=== PATIENT | male | born 1965 | race Caucasian/White ===

== ENCOUNTER 2023-04-22 15:57 | Outpatient (OUT) | payer OTHER, SELFPAY ==
--- NOTE | 2023-04-22 16:30 | XR_ITS ---
The [address] [address] Patient Name: ENRRIQUE MADERA MRN: [id number] date: 1965 Sex: M Assigned Patient Location: [facility] Current Patient Location: Accession/Order Number: [id number] Exam Date: 04/22/2023 16:25 Report Date: 04/23/2023 09:21 At the request of: DAMIAN OLIVARES Procedure: XR lumbar spine 2-3V EXAMINATION: XR lumbar spine 2-3V HISTORY: RADICULOPATHY LUMBAR REGION M54.16 COMPARISON: No relevant comparison available. FINDINGS: BONES: Normal alignment with no spondylolisthesis. Mild to moderate degenerative spondylosis and facet osteoarthropathy. Anterior wedging T12-L1 and L2, age indeterminate DISC SPACES: Disc space narrowing, severe at L5-S1 with endplate sclerosis PARASPINOUS: Negative. No paraspinous abnormality is seen. OTHER: Negative. XR/XR lumbar spine 2-3V IMPRESSION: Anterior wedging of multiple vertebral bodies, age indeterminate Moderate degenerative change Electronically authenticated by: ELIAS HOPPER Date: 04/23/2023 09:21
== END 2023-04-22 15:58 | disposition home or self-care (01) ==
LOC: RAD 16:10
PROVIDERS: PCP Family Medicine; Visit Provider Family Medicine
DX: M54.16 Radiculopathy, lumbar region (principal); M51.9 Unspecified thoracic, thoracolumbar and lumbosacral intervertebral disc disorder
CPT/HCPCS: 72100

== ENCOUNTER 2023-05-05 14:54 | Outpatient (OUT) | payer OTHER, SELFPAY ==
--- NOTE | 2023-05-05 14:57 | MR_ITS ---
[address] [address] Patient Name: ENRRIQUE MADERA MRN: [id number] date: 1965 Sex: M Assigned Patient Location: MRI Current Patient Location: MRI Accession/Order Number: [id number] Exam Date: 05/05/2023 15:00 Report Date: 05/06/2023 16:23 At the request of: DAMIAN OLIVARES Procedure: MR lumbar spine wo con EXAM: MR lumbar spine wo con HISTORY: Collapsed Vertebra M48.50XA COMPARISON: Lumbar radiographs 04/22/2023 TECHNIQUE: Multiplanar, multisequence MR imaging of the lumbar spine was performed without intravenous contrast. FINDINGS: There is a chronic compression fracture of T11 with depression of the superior endplate and 30% loss of height. There is a chronic compression fracture of T12 with depression of the superior endplate and 90% loss of height. Bone marrow signal is within normal limits with no acute fracture or dislocation. A few small scattered Schmorl's nodes and hemangiomas are noted throughout the lumbar spine. There is 6 mm of retrolisthesis at L5/S1. Conus terminates at the lower T12 level and is unremarkable in contour and signal. No paraspinal mass or fluid collection. Visualized abdominal aorta is unremarkable in contour. The upper sacroiliac joint spaces are unremarkable. T11/T12: Disc space narrowing, disc bulging, and facet arthropathy causing moderate bilateral neural foraminal stenosis. T12/L1: Disc space narrowing. L1/L2: Negative. L2/L3: Mild disc space narrowing and disc bulging. L3/L4: Disc space narrowing, disc bulging, short pedicles, and thickening of ligamentum flavum causing moderate to severe central canal stenosis, severe left neural foraminal stenosis, and mild right neural foraminal stenosis. The thecal sac measures 5 mm. L4/L5: Disc space narrowing, disc bulging, small left paracentral disc extrusion, and facet arthropathy causing moderate central canal stenosis and effacement of the left lateral recess and severe left neural foraminal stenosis with mild right neural foraminal stenosis. The thecal sac measures 6 mm. L5/S1: Disc space narrowing with 6 cm of retrolisthesis and bilateral foraminal disc/osteophyte complexes causing moderate to severe bilateral neural foraminal stenosis. MR/MR lumbar spine wo con IMPRESSION: 1. Moderate to severe central canal stenosis at L3/L4 due to short pedicles, disc bulging, facet arthropathy, and thickening of ligamentum flavum. Moderate central canal stenosis at L4/L5 due to a left paracentral disc extrusion. 2. Severe neural foraminal stenosis on the left at L3/L4 and L4/L5. Moderate to severe neural foraminal stenosis on the left at L5/S1 and T11/T12. 3. Moderate to severe neural foraminal stenosis on the right at L5/S1. Moderate neural foraminal stenosis on the right at T11/T12. 4. Chronic compression fractures of T11 and T12. No acute osseous abnormality. 5. Grade 1 retrolisthesis at L5/S1. Electronically authenticated by: ELIAS STALEY Date: 05/06/2023 16:23
== END 2023-05-05 14:55 | disposition home or self-care (01) ==
LOC: MRI 14:54
PROVIDERS: PCP Family Medicine; Visit Provider Family Medicine
DX: M51.9 Unspecified thoracic, thoracolumbar and lumbosacral intervertebral disc disorder (principal); M48.50XA Collapsed vertebra, not elsewhere classified, site unspecified, initial encounter for fracture; M48.061 Spinal stenosis, lumbar region without neurogenic claudication
CPT/HCPCS: 72148

== ENCOUNTER 2024-02-06 13:33 | Outpatient (OUT) | payer OTHER, SELFPAY ==
--- NOTE | 2024-02-06 | MR_ITS ---
[address] [address] Patient Name: ENRRIQUE MADERA MRN: [id number] date: 1965 Sex: M Assigned Patient Location: MRI Current Patient Location: Accession/Order Number: [id number] Exam Date: 02/06/2024 14:05 Report Date: 02/07/2024 07:42 At the request of: DAMIAN OLIVARES Procedure: MR lumbar spine wo/w con EXAMINATION: MR lumbar spine wo/w con HISTORY: LUMBOSACRAL INTERVERTEBRAL DISC DISORDER M51.9 COMPARISON: 05/05/2023 TECHNIQUE: Axial T1 and T2; Sagittal T1, T2, and STIR sequences. Images were performed before and after the administration of ml intravenous Dotarem contrast. FINDINGS: For the purposes of numbering, sagittal T2 image # 8 extends from the T11 vertebral body superiorly to the S4 level inferiorly. PARASPINAL AREA: Normal with no visible mass. BONES: 5 mm retrolisthesis of L5 on S1. 50% anterior wedge compression fracture of T12, chronic. Moderate diffuse degenerative spondylosis . Interval posterior decompression L3 and L4. Left hemilaminectomy L5 CORD/CAUDA EQUINA: Normal caliber, contour, and signal intensity. No abnormal postcontrast enhancement DISC LEVELS: 12-L1: Early degenerative disc disease is present without focal protrusion or neural impingement. L1-L2: No significant disc/facet abnormality, spinal stenosis, or foraminal stenosis. L2-L3: Disc space narrowing and desiccation. Posterior broad-based disc protrusion. No central or foraminal stenosis L3-L4: Disc desiccation and narrowing. Broad-based posterior disc herniation the protrusion type extending up to 4 mm. Ligamentum flavum hypertrophy and facet osteoarthropathy. Moderate trefoil narrowing of the central canal axial image 20. Moderate bilateral foraminal stenosis L4-L5: Disc space narrowing and disc desiccation. Left paracentral and lateral disc herniation of the protrusion type measuring up to 7.3 mm. Significant left central canal and lateral recess stenosis. Bilateral facet osteoarthropathy. Minimal right and severe left foraminal stenosis L5-S1: Disc collapse with endplate sclerosis. Grade 1, 5 mm retrolisthesis of L5 on S1. Mild to moderate diffuse disc/osteophyte complex. MR/MR lumbar spine wo/w con IMPRESSION: Posterior decompression L3-L5 Progression of degenerative changes with central and foraminal stenosis at multiple levels detailed above Electronically authenticated by: ELIAS HOPPER Date: 02/07/2024 07:42
== END 2024-02-06 13:34 | disposition home or self-care (01) ==
LOC: MRI 13:36
PROVIDERS: PCP Family Medicine; Visit Provider Family Medicine
DX: M51.9 Unspecified thoracic, thoracolumbar and lumbosacral intervertebral disc disorder (principal); M51.36 Other intervertebral disc degeneration, lumbar region
CPT/HCPCS: 72158; A9575

== ENCOUNTER 2024-02-15 11:03 | Outpatient (OUT) | payer OTHER, SELFPAY ==
--- NOTE | 2024-02-15 11:07 | XR_ITS ---
The [address] [address] Patient Name: ENRRIQUE MADERA MRN: [id number] date: 1965 Sex: M Assigned Patient Location: [facility] Current Patient Location: Accession/Order Number: [id number] Exam Date: 02/15/2024 11:08 Report Date: 02/16/2024 06:16 At the request of: DAMIAN OLIVARES Procedure: XR shoulder RT min 2V PROCEDURE: XR shoulder RT min 2V HISTORY: Shoulder Impingement M25.819 COMPARISON: None. FINDINGS: BONES:Narrowing of the acromioclavicular joint with small degenerative osteophytes. Unremarkable humeral head and glenohumeral joint. SOFT TISSUES:No visible soft tissue swelling. EFFUSION:None visible. OTHER: Negative. XR/XR shoulder RT min 2V IMPRESSION: 1. Mild-moderate degenerative changes of the acromioclavicular joint. Electronically authenticated by: ABHI MATA Date: 02/16/2024 06:16
--- OUTSIDE RECORDS SUMMARY | 2024-02-15 11:08 | XMS_ITS | CCD ---
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 professional for tips on how to relieve symptoms and feel better. Usual Cause Illness Viruses Bacteria Antibiotic Needed Cold/Runny Nose NO Bronchitis/Chest Cold (in otherwise healthy children and adults) NO Whooping Cough Yes Flu NO Strep Throat Yes Sore Throat (except strep) NO Fluid in the middle ear (otitis media with effusion) NO Urinary Tract Infection Yes Antibiotics Aren?t Always the Answer www.cdc.gov/getsmart GET SMART Know When Antibiotics Work [place] Department of Health and Human Services Centers for Disease Control and Prevention April 2014 [facility] MAGR Intraoperative Recordon 11-04-2023 MAGR Intraoperative Record MAGR Intra-Op Record Summary Primary Physician: JACINTO OLMOS MD Finalized Date/Time: 11/04/23 11:56:54 Pt. Name: ENRRIQUE MADERA/Sex: 1965 MALE Med Rec #: [id number] Physician: JACINTO OLMOS MD Financial #: [id number] Pt. Type: D Room/Bed: / Admit/Disch: 11/04/23 10:51:46 - Institution: Case Times MAGR Entry 1 Patient In Room Time 11/04/23 11:50:00 Out Room Time 11/04/23 11:57:00 Anesthesia Start Time 11/04/23 11:52:00 Stop Time 11/04/23 11:56:00 Surgery Start Time 11/04/23 11:52:00 Stop Time 11/04/23 11:56:00 Last Modified By: Shikha Guzman RN 11/04/23 11:56:47 Case Attendance MAGR Entry 1 Entry 2 Entry 3 Case Attendee Catina Salas RN, Sarah E RT (R) Melissa Augustin RT CT ARRT (R) ARRT Role Performed Injection Mold Tooling Technician Soil Conservation Teacher Soil Conservation Teacher Time In 11/04/23 11:50:00 11/04/23 11:50:00 11/04/23 11:50:00 Time Out 11/04/23 11:57:00 11/04/23 11:57:00 11/04/23 11:57:00 Procedure Medial Branch Medial Branch Medial Branch Block(Bilateral) Block(Bilateral) Block(Bilateral) Last Modified By: Shikha Guzman RN, Barbara RN Long, Barbara RN 11/04/23 11:56:48 11/04/23 11:56:48 11/04/23 11:56:48 Entry 4 Entry 5 Entry 6 Case Attendee Rashmi Giang CST, THOMAS F MD Long, Barbara RN Role Performed Scrub Personnel Surgeon - Primary Injection Mold Tooling Technician Time In 11/04/23 11:50:00 11/04/23 11:50:00 11/04/23 11:50:00 Time Out 11/04/23 11:57:00 11/04/23 11:57:00 11/04/23 11:57:00 Procedure Medial Branch Medial Branch Medial Branch Block(Bilateral) Block(Bilateral) Block(Bilateral) Last Modified By: Shikha Guzman RN, Barbara RN Long, Barbara RN 11/04/23 11:56:48 11/04/23 11:56:48 11/04/23 11:56:48 Surgical Procedures MAGR Pre-Care Text: A.20 Verifies operative procedure, surgical site, and laterality Im.150 Develops individualized plan of care Entry 1 Procedure Medial Branch Block Primary Procedure Yes Primary Surgeon JACINTO OLMOS MD Modifiers Bilateral Surgeon Comment BILATERAL L3, L4, L5 Start 11/04/23 11:52:00 MEDIAL BRANCH BLOCK Stop 11/04/23 11:56:00 Anesthesia Type Local Surgical Service Pain Management Wound Class Clean Technique Details Closure Technique N/A Entire procedure No was performed via laparoscope or robotic assistance Last Modified By: Shikha Guzman RN 11/04/23 11:56:49 Post-Care Text: O.730 The patient's care is consistent with the individualized perioperative plan of care General Case Data MAGR Pre-Care Text: A.350.1 Classifies surgical wound Entry 1 Case Information OR MAGR OR 02 Case Level None Wound Class Clean Specialty Pain Management ASA Class N/A Diagnosis Preop Diagnosis LUMBOSACRAL SPONDYLOSIS Postop Same As Preop Yes Postop Diagnosis LUMBOSACRAL SPONDYLOSIS Blunt or No Is the procedure No penetrating injury considered occured prior to Emergent/Urgent? the start of the procedure: Last Modified By: Shikha Guzman RN 11/04/23 11:48:31 Post-Care Text: O.760 Patient receives consistent and comparable care regardless of the setting Time Out MAGR Entry 1 Procedure(s) Medial Branch Block(Bilateral) Time Out Checklist Verifications Team Introductions Yes Confirmed Identity, Yes Completed Procedure, Incision Site, and Consent(s) Presence of Yes Site Verification, Yes Necessary Site Marking, Site Procedural Marking Equipment, Devices, Alternative, and/or and Implants Site Marking Verified Exception in Accordance with Facility Policy Anesthesia Review Antibiotic Received n/a All Anesthesia Case does not involve Within an Concerns Addressed an anesthesia Appropriate Time professional Interval Prior to Surgical Incision Surgeon Review Anticipated Blood Yes Expected Case Yes Loss Risk Addressed Duration Addressed Critical and Yes Non-Routine Steps to be Performed Addressed Nurse Review Equipment Yes Fire Risk Yes Checks/Concerns Assessment Addressed Completed and Interventions Performed Diagnostic and Yes Sterilization Yes Radiological Test Concerns Addressed Results Displayed are Appropriate and Labeled Other Concerns Yes Addressed Time Out Catina Salas RN, Time Out Time 11/04/23 11:51:00 Participants Priscilla Moreno RT (R) CT ARRTDemetria Sara L RT (R) ARRTPadmaja Regina CSFA CST, JACINTO OLMOS MD, Shikha Guzman RN Last Modified By: Shikha Guzman RN 11/04/23 11:50:15 Patient Positioning MAGR Pre-Care Text: A.280 Identifies baseline musculoskeletal status Im.40 Positions the patient Im.80 Applies safety devices Entry 1 Procedure Medial Branch Body Position Prone Block(Bilateral) Left Arm Position Resting at Side Right Arm Position Resting at Side Left Leg Position Extended Right Leg Position Extended Feet Uncrossed? Yes Press Points Checked Yes Positioning Device Pillow, Safety Strap Outcome Met (O.80) Yes Last Modified By: Shikha Guzman (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 [facility] 11-04-[facility]23 MAGR Preoperative Record MAGR Pre-Op Record Summary Primary Physician: JACINTO OLMOS MD Finalized Date/Time: 11/04/23 11:47:01 Pt. Name: ENRRIQUE MADERA /Sex: 1965 MALE Med Rec #: [id number] Physician: JACINTO OLMOS MD Financial #: [id number] Pt. Type: D Room/Bed: / Admit/Disch: 11/04/23 10:51:46 - Institution: Pre-Op Case Times MAGR Pre-Care Text: Patient will be optimally prepared for surgery. Patient is free from s/s of injury. Provide information to patient/family related to plan of care. Verify patient allergies. Confirm identity and verify consent before the operative or invasive procedure. Entry 1 Patient Arrival Time 11/04/23 11:00:00 Preop Departure 11/04/23 11:42:00 Last Modified By: Shikha Guzman RN 11/04/23 11:46:56 Post-Care Text: Patient is prepared mentally and physically and is ready for surgery. The patient remains free from s/s of injury. Patient/family express understanding of plan of care and participate in decisions affecting his or her perioperrative plan of care. Allergies documented appropriately. Patient identifiers and consent correct. General Comments: Pt to PSW. Pt denies any recent cold/flu/covid symptoms, SOB, diabetes, CP, or pacemaker/defibrillator. Pt has sleep apnea and uses CPAP at night. Finalized By: Shikha Guzman RN Document Signatures Signed By: Shikha Guzman RN 11/04/23 11:47 [facility] Patient Handouton 11-04-2023 Patient Handout [facility] Progress Note - Provideron 0 11-04-2023 Progress Note - Provider [id number] [facility] Coding Summaryon 11-03-2023 Coding Summary HTMLBase 64 FgzcqixsJGw5vTx+PGhlYWQ+PE1F OODpP24uvMDpgY2lK6QZDMeLSeob WYWRYFmRNrWthnEeXO4qwEKvHSKp IC8+BA6yUTZiAeddjEJjs1D0jIJ7 T46pws8rDEymzOR2RUNeCaPzpfru e5sxnLg7YExqYgmrGyOa YNJzdT56WBV5vG67Ci28jZWeiBAi q7skxMx3DjVvLYZoGBL3dQdyNSip q5HyCCHrX02wqRYdt9E2 XTAgsBgskFZuIhBdnCO6nS3jFVpe vcaqr4bgpsxhXhp6yk89rFTwn3C9 vSS0R2HitmK9ASZgeOKp MhcnoSUXiE0fzkdvu7xybdqkAmCe IMRzBDj9IFq7IJGwjKskEbAfRV49 PZF8DGKzmbXuI9SpSXDn cZedVkB8b6N6Hu3AU9YJKcuvI8PB TUFSWTwvdGQ+DO30pf98M1ZeEttg Ozm8DCNaXJI1qJE3aB5g ZOFiQZthe2U3iSM3Z0GmpyMlko2z g3guTVHsYUkyM32iaRVlz0A5CAYb bVL3MNRxwXurFkKolJ88 Oyc+EJKtsGbdh1GqBchwk3vyr4el zCx8KdaaYADecqXhcUobVFC8z5Fk Lg1tMDQfsZY7wLK4xK9p UrObZvY3JOzhZ459YqVxfCKgWbzf M05bK5NoxXM+OFBwWku2OUJuqWyi GI5pT5LmCPVtvfgeoTCx hSquBT9lHZFpayqzKNCqaK2aYPJd C6f5NkWwArC8ZQglM0DxTDZudqot Yi44sC3tTyZoGhT7IIzo Q8KljuO5JMSptXUnQKdcXEZ9D65x s6J2TGGxGVDoRII4xHN4nM1waKiz bjogbGVmdDsgdmVydGlj CAzhPFxwI382POHnuDcwJbScRXep ZyBEYXRlOiAgMDMvMjEvMjAyNDwv dGQ+LLGjRBH5zUqvDCSx iTHtJLukGy9htHukeYivFC6qFQAh khyoSPSpyO6nQZVvpRMjpScxIR7s FNHuogsnz443EnHlSFZ8 STYcfTNcB7TsjV8sKiXvKYMmWTFc O9XerEHvEIzeV708CXscKiQ5NRTw otIyG3DdMXUfoCbtVaO4 v1Y1Ct9Kt7UkivezE3RcsJBhVaOl BkntVRp5Z9TtJbfemUH+BF05XSOc ZO99EMl8YTZ5mIuxXUam SSFdU7SwpA9mDsWxVODbMRCbXbi+ PHRhYmxlIHdpZHRoPScxMDAlJyBz yNceDH8rTi1cIXJgACQw fLfojAIjUgIfk6bqASTkBZagAV8i kOvdG4YemOS9NZIiw6p2Sd85E93k Y7LkjZU+LZEbpQL3qDG4 aX5jCjGdVuH5EDsiD696LwApdFGg Nvlvi5hiw2wbcDu0LsG1JTKcxuTl uDlyRAT1d1LbCx19G09q PDkzHBYyNQWqRWRtEQXovHvpoi9u pH2jVk4+DIBafJW0cZE0bC2rXiLh DoX9SYqvL904ZaQouVCb Kvldb4vgv3heqLk3AaTdCXUnuvYy sNydDFT5b5MwMw67W7HqeEihh5Xk Pfh0wx02qPYku3H1pZS3 K1DqUUGxcdtorVEefSxpGY8hOYPm eqqwMCUkbI2dXVVxA2e8WbHkHbF6 YHocS7BqpqG0KYYorHMx OXNtqMTMfR5bfhnhj3xxnfghPsBn AAQgGTc9KIj0FYDjaCchCjQvASE9 DjK7MMQ4rEEfuQ1cwCmb kpsjbN6xKxd+ZTW9rJXpaLSDAD2m OjwvdGQ+GGCqJLB8eYhaOBzgRCGb hR8uDKWtX4g2JkUrFyX6 QLpoH8LoaaO6JDNkzVOfLQNtlTNR pD9ybhpai0zcviahBdNpYBHbWYl7 VJx2QEEswNuoMwFdGQC8 IzO3QLW5sEExcA0gfBinslkopE0a Oyc+UnuhfSrmKEU1MYe8Y3GtBsk2 XCUogCcyDI6guZZtGRnh Hb3sbMczgQpzVF0sIRClhyywt085 JqBpm3cgSKQjyTMeUGtlGAV4X18f y2S9ZHZdVMJjLEP5bJA6 oS4xvOlgmanegBKjmRtnqvOezZed OFvkMUbeG109OAAsgFinGqIoDKv4 O9JoJtv7GOXetDkbEI2j cZBrBIkjOv7inAiykPuoOK0mSQNw asdag245EmIdb4uiLXJajLZeAYkj YSY6X09ul3K2DIEaFMXv FKW8eLL4oU2jsFjqqlrlxXOmgUwp fyZmlPgdIFyoPTxuB119FBKdtRbg BbCqhQz3D5FuUar7IBZu iQtbXY4bcXGxXWxoFv1myGoqmKnb YT4mUMKiwqesz449LuVwj4dqSMFj rWSiOBjtCSR3J33bo1H3 TDOeGYAtCPD9cQV1hN9njTqbeqfo rIOmqRxqaoSzrIggSWjnDKsyV109 IHRvcDsnPlBhdGllbnQg WKqjDCs6D2VkDjparZB+JJ09AASn GS41fAJbaQYxx4gthEh0QoPePLQf TVW5iEykNFtzr8QsRRNx S17hhQQdb0V1MKMgzYlpaHLpOqKf tGV4qM5vHDmwkicrr1tqgqqqZbzk f5puir41jU72R68wYUur IWAaEUNgRFRpCWPoaSecwt0zkF6t Ii8+XSIlmVP5dBE7xE6zNTRyVcZ7 YBjgH404CsOkuHGsAkdb n3hxt6keqMs8WlJ3VCDvxaMngSxu OVQ6c6XdGy23X53bUTvgOBTzPGBr QZKiZUOzhQihyx8faV3k Ii8+EBKwuPU7oZF3wZ4aBcOaAaM2 XKezN035DzPvhDYnQprfE05cW7Ff dXA+IRZhRwa0JKOwmPbs UF6bzBEzTIlpGw0mCJD2DnEqAsBf UIlnU6CyWEKxnkbhgfbjhMV0KKQv USYkxH08Ek2uuIjwJNQt cJWKdG1ahlspp5yhzfjaMnArOLRt DRa5SFs3QTKoyFriSsDjLBN7BnP6 JUL0wPXtuD0vnHgkafcx bQ1yF9NkSAWgorhlIp63iO3eVoHh RtG6JFzoTud+Q8REABKWYVKVXK5Z SmNYSP30KE49nHQij7Y2 jTP4X0IhKLWvrouejdeflRA5WTRi WRRxoJ75pCXwEBcoEa5ev5Q7q822 STLoYIEjnC40Eg2lxTcg WQNpqHPRlB0tsfufz3jdcqktSrEu QQFlVBr9CZo5HPGdfQiiHnQgWAJ7 JwR7CSH8hNXzyH9gxKyw nmhrrB6dHji+EQYdHPEeGLi3Hoqx dGQ+YRCeDZO6iKgvHJidRDHekH6m IZYmP4l6WqHwDnE7NRle S2ScMVZttcsmDd15tF5rYpGcIcU9 BWetE2LttuN8KDUbvGMvDGxyJRF9 J15dd9K5LXQgETRtKZK6 yRP4dZ3rzLqezwrklNTlcPoxpaFt oOprQUtvSYwdZ273JFSkhOqcIbQ5 KGquIEKhCT34CY99cBPt e3H0uBN7F3OzSMTbubjgasgqhIX1 XLRjYANogX14rXScDYxgUq8sz2N2 i790OQRkPBLicP68Xw4n jOpwQLQtkBUIaL2beejmy2wryzxw XaYdMECxSKy7LIv4TGImsYasKbUs VDK5CrE2QQV8pUZcoE7l dVkgstujhP6zXdl+TUFMRTwvdGQ+ QRKpMRG0bDatYLkmETYekB1gEDGd K1b3OiOuTlJ8AMmwO1Na CXFtliqoQu90kO9uLxSmIgQ7DJbm L8FqyyJ2RPIhbLTzJLwaSIQ4N07z c7W4ALTfGOLpWBN1sYS2 vS4wjFaqpzempEIbtQfelrKzaUpj HCmjEEivC219XADejCccIj7UUU01 BQ48I8ZdVarfbXWrsFV+ PHRhYmxlIHdpZHRoPScxMDAlJyBz xBksQQ1tVk0tAEUvVENeaMvqpWWj LbNda4qqSJBoAGygBO7c hTvpF2ItgNX6THWsg0i4Ov41U76f C1GgaQP+ZOIveOO1lVG2mD5xByQb HvX8BWhnL340CxKabVDc Wsfch3prn2nsiOq5KqGxGVZenbTw kFfjTUK4d8PtXg35S61lDYvmNNJp AWLuOSEqSFAxtYohxh5g rR1nBs2+VPMgnIF6xJL4kP1jPmSk NfB5FOpbK206NkKudPQlWumkJ71t R2HlrDG+IOFoOzm1ERMm fJvaJP0emCZjUHmwJa5zWDY2ReXx BbSaVEpjT8JuSEGucowaushewTW7 VBUdMDVmuC97Vu6rsSem Wt3hLKZgWNV6ATWidOQlU3GmcC4o HaYfCDGuFVUrH9TcbZUnLIkoN171 XIkuGnB5GOUftlPtB4Uq TPUktEvnWlF4x5Y1Jp9VsZtmdZPa GF5dDkTsRQo2Z8GwXmo7AZQaePas YG2abDQzEQzoNl2tiTag sJwpKN2cTOHjnzhqc076DqBgl6tp USHugBWaHKgqWZL3J75xg9X7ITXw AOTiTOC4jSR8yT2vfAiz bjogbGVmdDsgdmVydGljYWwtYWxp S480NDEgwJywNeIKXyf8X6BdKqs6 DLEmwBweZE9juPDrIUxs Lk8ipOizpBnqVX8tICDsvawfu736 ZqMrp7wcQEXmgZOpHKoeIZH9K52u n3S4MUQiOHNcILG1qEK4 qB9iuZxcyusbaAQnxIaevuQkxXah MAzsWLwxF594BXSktLziYu5ITcq3 I2HtFuh7IQTbhJtfAS7a fKDnQGlaYu3xwJucnUaaRL0bWDNb oyntu973JyQco5awXXUeyZLkAAzy GGX4P29kz2S2FEIrIOVg DOX1iKO2qR2wtRxcitqgnMPbbGlr chPbgJepKNxtAXhdR569CNHepCxm PlBheWVyOjwvdGQ+PC90 gx03O0OvSasxTvt2YYYiAGM3uQP7 qX7wBQKmOUapp4B3sQG9L5AxfuBa re1qa5wdTQYbSTfgX44j bGF (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 [facility] Coding Summaryon 10-25-2023 Coding Summary HTMLBase 64 VockhqlaZIe4bCp+PGhlYWQ+PE1F FKCkI36zhCPhhD8iW1PNKDcBTdgm JCYVFHiJBdEhopMhLP3dzWDwIPIu IC8+KX7vOODlMquubUThs5H9lQB3 C60wfr7sJVriyRY8IYAuNpZkmmaf i1nzjIr4VIhjHaulXzKx IDJznL99HSM2hP36Xj72fCNbiOFs a4inbWv6YwBsKRUtPYQ9cYteNDhw d2UzSIQdX32bqAChs0E3 QXIyyQeazMPmBoZypTQ8iI8eAMps ksnsk7oxgiipUca4ti36vGCsc4T7 bMB8L7FvedE4EPWqyJSi SguofUWEwZ3ivocro9rugyyqFhAa FQIpGMl3VDv5HFJlzPewLhWtOI73 KYC2VPVtdoDdY5WfAUWj hWbzQfP7t8C7Fb4UF1MKAljhZ2XG TUFSWTwvdGQ+QF74xi29O0KlBsbt Wde8ESElYMF3nBU4yB3z GINxFOkop2A1lUL0U4MxnzGfho0i a6jdSWRuHLoiV31smUCyr1W2MGOg uEP7FYOqzJojLcVubY83 Oyc+HOYtbWeyx5PrTfptd9mmh4fw nAo1BzhjZVZwaaByyXqgIVE6f8Ci Wf9cSWLrtLM3bPJ1wV3c QkYsVbS8DQroF326OxLixIOcCyxg N08wM2BnxUG+JYJqBoi3TBZjwGva KD1vP7WlIOZwgwplyNUt mXaoZZ4tGVNjwmdmFUXksV5nBBVm D7l2DaMdUqS7LZjwL6RpWPDlioub Fd66fI4jHtMvRdC7NYon H9IuwrT8HTPxpFHnXCffVMH0Y75w r4E7LYZiYIQbMBR2eEA9rJ3qcFsk bjogbGVmdDsgdmVydGlj PKtbVPjgK100DKBefWtlUaKpXJhs ZyBEYXRlOiAgMDMvMTIvMjAyNDwv dGQ+XRNkFLH1eRcnHANd oVWjINedNa9apHvexGgyKF9wXXDe rvgbAFMoiI3rHMRdgUPxvWjzPT3j FVPjwseus463NhWqNLK1 YYVxfCYrU0DjvN9dJnDmMCOyKTOn B2FlvTDvYZioV204CUzvTxS0XSYm cxMbI5SxPOJhtUsoIuC9 y7L6Mu7Lr4PdafzyY2RkzSMlKyWh CfvlTJs9G2AhAedjeBU+OU34GZVx HC05GOa9OBI5hAjaHCak IVLqK3IorJ7cPqMsGFWqTLWeCih+ PHRhYmxlIHdpZHRoPScxMDAlJyBz oZxfFS9yHr6nLEGnNGMs zRzfbXXnBfOss3tsHWJnRDluSN7v tTxfP1EbgYU8HBCsh6g9Nn82X54z T1MybEY+FIVdnOR5vYN6 oQ7cJsKaMuF0XHuuL036AtFuiYUq Mhaft0oah8pasRt9NqT8DVWszuIe oOxmNHS2k9HzWk31C99s ZDeyOVGyBOApIGYiXCVijMxbof2a mC1fMs9+PPJraVM2mVV7jV3hQzBf NiB7VVgyA481NyRxjVLf Jksgb4tqp8poqPt9UlGhVCEgpyCs hQjiQPZ0p3ToBz66B4ZtoYyxo2Ao Hcm6mp11hLFsq1M8yFD8 F9UqLPBmzbrgrUSxxIduDW7uAQZw jhkkBRWwtV2bFSHbR4h9ReCtWzU8 NOahQ9AuwcF8PPKjnALf CIJoxQIBrL3adfkak0phkcqxMzZv BODoRMc7REd3BMOwwUqdXvGcNKO6 McM6DUB4vINjlJ0utOin enspcH8sZsh+RWF0qIZjyKMFAB8x OjwvdGQ+RNRoDYO9kYxfSJecNMJo rP6zALAuE1g0GeJqXmN5 WXkcQ1DsdeI3KPGghELbNNSrwFIN cJ4pyroja8jftgpaTbNbMYAbPVk9 KWt0YZXjxNrwIaCtFEI6 VyW5UCP1rXZvkL6zzBikekdcpT2z Oyc+JbperLzrVDW7DMk4Q4QiQdu8 QKLiwMmkZZ3gsYWmEHaq Uj7tvWpoyXtuID8gCHHjeydub170 YgHub8lrGTYsvJMwRCprIOI3Y53t t3R2AKCzLWYlPUY4qKL6 bT3inLhxxurcsEIhmOnxmpDkgObv MKkeHUlpV908EJElwPajQoBbVBy1 T9OxQxr3XPVizItqEJ0o gHBfHDqtQt5ygKaktHtiDO3bEITu njbgh428KvSvk8jzONDnbYMhWHmq QBA9K37yw2L0XCRlJGAn PVB4aEZ8iO4syZoyqnlzqPAhxEho hdKdnCzhYAciBIrmG911WEEvfXoz XpWlxWd1T3CjJfb2SQAq nNqfAM1snYTwKJgnLr7ekXjelSyq AW3eFWJszodoc405OcWak8qlKZRc vZVpOHxtADT2B41gs5D7 PGKuXNZcUJQ5lHL4fX9olBubhpxl vWNyiXkzanWruFkgTVejJVnmY635 IHRvcDsnPlBhdGllbnQg CLxpOGu8R5VgTgmhsAL+DQ45CVWd CE31rGOymORfg2hiuXp3FqEcCQLh OIK3vMoaFMcqc1NrCMPh H31jcYMxg1Y3TEDyqTegjMXfUyHp dHA0wN9yWJhwitnuf6bgrjmhBbsy j1wmlx01jE14X68eCYrg HSDhCNAuYIMwDEMdwGuarn4biB1f Ii8+NOIdqIR5gKP5kG6sQNCkIfI5 DGpcR367ReYozXNnNxvp f3kko7kovXj5ByS0ZNGfecHnbCdq TXT8o7ZnMf37P62sVYuwVJAaLFSh DJUkGOCtsNynlt0caD6z Ii8+FXYbwBT9eFH6tG1vXjZqJuE8 UJawD645JkHbqGMeSpnlI54kE8Lv dXA+CGNeUfm2PCLxbYpn XE4neKGnRExhRy3uTSR2HqByGgXz GWruC8GjXDDuezlhgkogkFH2GIQh MMVciN52Pr7yyGjfNGEs qZWAnW1vgrigm5bfrwjwUiUfEBZs MRk6DDw5PUGcxXzrTdNwNRL0UfB6 EEQ2dFUnhO0ckCpbxjhk eE6fK4ZzZPZbmqjfVz62xV8qAmOf GjU1ICsxFzu+N1QOPJPUEYWBPT8W JxMXFI65LJ72iJSof9X2 kXR9Y8AwCQOclujnfblquIF4AFTs EHXncK76zDWvDVfcIr5ie2T4w190 QXQzJYXneT89Ty6mfErz BBZzoOTZvT6xxnhoj5vrnoqfQvDl WNWwFWs9JKq1AQAbkRwyZrQuYKE3 CjK5MQK7zNYmaN8miDki tlmffE7lErj+HKVcJDFnXVv6Fkhm dGQ+MOFuDSS5lKtoSQsiDXDwfN6q DRVdN6g0MyFmThL6ZAxg T4JvBWUudkxzAi44bY1yIqTlMyR9 LNloQ0XoshO9XMBogRWcVHzpOOI7 H10rw8X8TWZxWQYxJNA2 hTL4pX9ctBkybgodlBOjpBfefbRu zBzeHVdeAKnkK712RBAzgUzaAgJ3 IActDZDpAJ56JB07pKSb a0F5zSG8O0RcZBKpwxlxrhcfgVD8 OPEzQZRgjL44oXTkBEkzJy5xa1K5 q729FPEvSDYwmO45Ka7l nItxBLLjeZTGpD3cnvmcu3nlhduy KiDwONYdHQu4MRd0KFVnrIteBkSn CKM3SaB8INL4fQRdmU8c jYwzcghgqT7eIav+TUFMRTwvdGQ+ GSLzORY7gKkcCQudLNAxhR5tKDSk Q4g7TbNpIdI3QPxjC2Re STDcrthhFl62rU2lGnOyRtX2YAcd Y1AuwwU8PXWgbATcFGopCXG3A83j f1I9GLTaOOLfANY9vPO2 jW8moIjnfbaqxGCrgQnmzsUddJbk TFhwPEakI990GXGylLquTm1UPO47 YT71A2RzYtaybFHabOI+ PHRhYmxlIHdpZHRoPScxMDAlJyBz rTbeTR0gUx7xLTXdTXXwiVjqbERr IjYfg5eqQJEvYLubMF1v nNqlT5JfiMC0DUPfa2j6Bl08W63n S6VgjIV+JBJvzKS3xIY6aF1tWyWu JhP9WEqbW567LgHbaXFx Lkxus0ozw6qdzHl5AhPtLAJowwGn xBhlYHO8x0TfJc58Q53eCFztLEKz DGHyPVToDPKcbGlrwo6g jZ0vYi4+AIGffWR7qRC7oR9sSpLi ReI1ZPwgP862DaBarPIwBzxgG72w W5OjgQR+GPWoNru2BCZw gLctSD2nhRKqMYqoVs9oXYV2SrTu VjKxOJwnF8NhMTPxdiaxhwbdmTQ6 UKSnSGQdrD69Zj7xeWbw Qy2xLWJbAFY2IHMkwTCzW4JwoO3s LlKvLMLbZTWzB6FxpGCcYGkeH202 QXlrHlL4UMGmbcGzD8Jt DCYmjVfyYbG3v6Q6Kc0UiUkmbOIo CY8yTdYvHUu4H3FaGqh4PROxdNaj MV0tjDEyJXrcZn5coFom dXjaHS0rBLOvboidt796WiFid5tt OSQcuNAyEGgiGNM9J64lc8H2GWIo QPPqPHK1yIM2cG4hkZqt bjogbGVmdDsgdmVydGljYWwtYWxp C456ULBexPwfQgVNQcd1O7LeNhg0 XWBmqWjzUP1zzWWoEVln Lt0duHwjyXlbOV6yPVFlxuqgo438 EgWsd5mvLRFgfJJhSCitOSY5Y89z y3I3XECtIYCmNIE4kNK3 iE8ieIftlwghoLRcpNtlsvJqcGco RZppAXzkZ194MKKnvUtjOs7NFup5 J0SjEvg2UVCiiYtzHV2z jAHqNUqsTz6izVhhrKhzCD3xAXAn cfcul000ApNwn0qhUOTysIGiEDul IEE8E05ji0M7VNSsXKKq JYE5cNT3lE6xmDhdswqfwTGjxXqw elLepHdyIUevAHecF342QRImwQzy PlBheWVyOjwvdGQ+PC90 jn58P5FbRlzkYvj5KFOzKSV4xYL0 pJ8bIJUuLCsbs4Q0zJC4P8BqxrGb bs6yx0afGIJiEAyhS60h bGF (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 [facility] Coding Summaryon 10-24-2023 Coding Summary HTMLBase 64 WewzggpoTVw7yEd+PGhlYWQ+PE1F LVQpX94qvQIjvI2oH6KMAPsOKmqr ZOVLVWtEVlHyroNoKU4ixHUlWTGf IC8+FD3pFTFhZqrkzQEqv9W3oPX2 C52hzv8qYFjptJW4JAUyVuGgnuhl v9strXy9VBkdLrewQiCu CCJfaB62HQW4mN25Ay16pTElbTYa p4bhyYb8EiXgGNIsSZP5vRieMStr b8CtMDGjA69ujTUax1H1 SUGnpEshhDWhYyEqvYS8vT8dWXpa cvwsx2eizutcByu5kz46kOBnf2K1 uMV3O9SlyyB2FLVmfHLd OjrquNTSbT5fvgxin0etfqmbMnQh LXBaFMl0HAs4LISkbIleOyIbHR31 ZWP7MMXocnXmZ1HcZQRf aMmxDyB3l2S6Hv1FH4ZZBlkgC2TS TUFSWTwvdGQ+CE27lf16F5PcXjgy Cwh9GYScGJG6fLP6pN1l OEZdHSjew6W8eCF6I9DeaxSbhb7z a0erQLOqITytS00dhINpm5T1SXOi tJP6CCTexZmuHwJifW29 Oyc+VHEnsUvch9UmPthot1qyq4uv wYk0OpgvIAGnejShrEiiFEX2a8Ol Xg4xERCqzXS8xAX6iT7a QrCmKyI5ZMgqA045OjHldXEgYkxv W03dW9KdiRS+DTGxRya2EBWeuFul AV1qS1BzIJIhrerxeNFd aUqgKV8oUNMqndeiYYPlnS6hXXMg T9t4IaSeYsF7FRxlE9KoIFAvnthy Xv08jA8dWqVbJoV9IPoi D4TgsyF5YERgiJXmSKbjCCC2R87h b2A2REHzMOLmELU9fXW5rV6afIce bjogbGVmdDsgdmVydGlj WCwjJCktU200NKOpdMhgDmNfKClf ZyBEYXRlOiAgMDMvMTEvMjAyNDwv dGQ+FTAaPBJ7dMpxKZLc xTGdJAvaUa4izOujkHauPF1aBLKq bkocMNDubM3vFFKzrNFcrWzbTH9a YQUnmtlva842AuFpZHP2 JCBpeQTmP2SoqO3rSyToLSKkOSNv L8DqoESvNTerE931ZPbzRoO1JCLm frBpI2SzQOMlaFsfJjY3 u4N1Av9Oi3ZcwnohC4VptEKwFlJa XiyuKVj3N3YnYwzpsRG+KJ91BGXr AY20WPf6XZB3dTzjLVhr ARJeR2PhiB8oLfEnHKAqHMGkDaa+ PHRhYmxlIHdpZHRoPScxMDAlJyBz vSenMA7rOg4yJCUfRJNs iGltxPLqCePbq5tfSKHgGQueCO2v bEzhP6OhmOB4TWUrz7p3Qg65W26w D4QmeVQ+FJVcqAA3wER3 cM9oFkKwVnC2ZHzuE833WrRcfIRk Bqdtt0ehl1doeOj8MxA7IMGxkaTe iPmdIQJ6w7YxTf76H15a FVrwAMGqSUSzRIFcPZXycWotbj8b xL7aEn3+IXXicNC7bNJ6pZ1eDhQp VnQ5POsfB151CnPdrOYv Rhque5enp3xvtGs3XgDvZGRsgjVc qMvrHCL2g7XpRn52Y3LkiOflo1Wn Emt5lj80zTDvc1R8xBK5 Q6YsVKXrikcwzUSleIdmOT6yFKQj vkiwTMYheI8pIYHuG6x6TsRoPfG9 FTjpS2BipwG9WEFwjECn PKVzbCIDsT9vtwpne8dpgiqyItIm OFWdMLq9IUq3YEIapDqeIsQmRJJ1 SaO3KJA8kXLtqR3kcXbs fckdcM2dHgw+FTG1vEGorVHZBB8a OjwvdGQ+UWJeHTH6xHeySAvyWKZq iF7kQPQfH9q2OyCgEkV9 AXshA5AaffX4AILkiFKyXGRacZZI jX8igsyuw5ffmozxXcPyPMPwHHg1 QQb6CHDsiNkqJfYxXBO8 UrC5BEL9gCEomI2ipCtxriuhsW6k Oyc+YlhaxOtlIHT9LXm3M9EdAmv7 SSOnvSryYE0imOUcYCii Qp4abWvvcWdaAU6bTDQuyyiof129 JuTnj0dxBGWoiRZgAJobDJY9C93c o0X8AHFiSGJjHFL0kDC0 pZ5ikZewaydgpZOqaFfqaqPztLre YTfiPWneC106HNYrlKloBpQqWYh6 M4DyYyf0EWAnoRyvVS6t oHRvSWybYx8idIpmqMjmRR1qKMJh uvjvv926WeNck9fgLCYtdNDjFEbj ILU6M83ap7L4WZUbNXBb ZCJ8aFT0zP6ymDwiggvnfFJvgSlp mrAmtZgtVKomVHorK999XXZakBkx NxIrfDo1V1ToSpo7VLJy yTueWY7toTHdYIumEs2xqJtfnVsn PL6vVGIedjcuy910YjZts8xyHZXp aBTtGNayVME0I77az6L3 HXSyPBSxYWP6uKK6wQ8bkGxkvfof fNJiwUjahiMnjXavONjqZIelW200 IHRvcDsnPlBhdGllbnQg PItyWOe6F5UoZakupEZ+FW90IRZj BM45lXNgmISea7dnnVg3ZrXxEINe DUZ3kIdaSIfxw7YjTUKt U58wbKUij7A0SXTlbGwyvZLoDaDw eGB3iC1gDFwrwadcr8zooxqsUicw d7pprv47kT40X38yFMsr AOHnDOAxNIVwPWRkpMufuu0lbX0o Ii8+NNNtoKU6fZW1jM6iVMHiUgM4 SVwmV081FiHwjEJlOqaj m7bgp8furNy4TpR8LJSopjYmbZwr OBX1q5HdQd47Y99vOJawEJSwTMVu LKYeELTvoJmmbj9jyG5t Ii8+GXOkyCB3uMZ5mA1mMqLbCsB8 MIpsQ929RuHkvHCyXccsV45wV5Ts dXA+LXYcZhl7HMPaxNuk YO8wgKGqIOrxNq9hBJC4ScRyUzLj QOjyG8CmODEwupclubymqQA6NTAc LIKnvS67Qu6qlFcqBEZm oMSBkZ9veyfap0pujsexQjDdUWPc RHx9UNi1OLDlqLtoCsSaUIK6SrT6 ITJ7xWFwfU3dhNlxhery iI4jT2WsZLOrgycfKi13qH5zPoBg DpJ3JUoxJyr+Y1VXDRGASHHQTT5W AbVJPF37CG31vMVsw0E6 vXY9Y9SdGRNcfaxbjpiuqSM6MHIt JHNhgJ58pXVvGKuuHb8mc5T8m859 LRLzWEJeaD15Eh5vmJwo XASccSGKeN8pdylsd9mhtjuzNfLy CZAiHZr1ONg3ASSdzFeiKbTqPIU1 QzT4XKW9aJSzxZ6vaSrt nvdpxK7tEpx+ALVsWYZbHOc5Cpty dGQ+GNMmGZT7cUpeKCpvUMGxgE4h JYUwF2y8MjMdMtN6DQhc N6SeFUClchlbJa88qT2uRnQcQpC9 MLanL9RxbmW3WKWluTZcCTftRWI3 M23tm1T0HQPiIFKgKGP8 nNF0oN1zaJezmhrvnHWlaFdtblEz bTdwFVrgRQlpV077YRUbjBsnVlD6 YWnnXLWgFM52WZ26vQUn h9U4jTC3K5JzZTSmttbijnfmnPU9 TDNuZISifK84nHYmNQxvIf5pf7L6 f058UAFqSBLksQ65Ls0n qAysNFAotDAAiU3jhpfsv8wxgiij GfGzMHZdGVp4JVz5JRMjfJjfVsDe XLQ2QyW5KWK0gRVueA3w dHlyznmcqP5aNzk+TUFMRTwvdGQ+ NYEuRCL2tZbmOCtbLEWgfH2rXQKt D8g6SkDfZdJ1XWzxV9Qx JLTiyfhwPo87hT3sQrEtNpM8UNbx N2OexxN0LHMuiYKqOBzxDKO6N15e e5V0GWRiTLGvKEF2gIF7 sC5ktShcpqwibLDxlBqmdrGfhMen KZpzCZiqK839YRKvlJdeMoRupYGA rZZrLXR5VH87YS54J6Gr PjwvdGFibGU+PHRhYmxlIHdpZHRo HGohSJSdFyXvhScuCV2gLu9dKJQk JCSomTlvvSUtFpFqb6up FBLkCUfeYY0ytRtwI0CrdNN2DETi y9d8Bp21M79xD7BfgVI+PGNvbCB3 tHX4uW4cFrZoOpC5WJdv T947WmCtxVKcFgzvd7dpw5kukPc4 ZdXzZHQualShoZziAOO0o1KaYg20 Q16gTUscAWEiEGZfZQZo PPIfgQivmd4meA8eFy2+PGNvbCB3 oLQ2oX8wTwXvCcV6TLcyR331NvMk wSYeHyuaF57xD0RlcAZ+ VWChMlw2IMMvfAonTR7dgDIpOHqr Fm5jQQI9SmCvLsLmODasI0XrJYTr fsdeemcqpXJ0JHNzNURt mI44Kt6znBcoFj0aURPtIKX7ODCc hTYxE7FudE8uNdHxZMLzAEVeN0Nc rTJtBOxmI202PApkVoS3 KYAyimNfC1YcXSDwaTspOmO1l9Z9 Fk3OtXwkzTMkOW6aQfMxUWo6V9Ya Nno0HFFnoFrjTY9duLKz XRspSg9glXiwkZlwIL9pYOWaayui h434PlYdp8jsLXEhlJZeKXyiDFD4 J39pi0N2YNFrQPWcGRA1 bQN4rQ0nvVbnpnckaCJroTyjjdYx aSiaBOhiTYfbG619JBCobXavOqHL Ilx4T0KvFzk3XPEheWwp FM2hwQZjIXlfCq5cmSijhZwlNW3d DHCclhdld623WhQar5ynQQMjmHUx JEwxQMN1I21tx2I6TMAv XQJyFBX1nWT4qY0dfPmezeeteRQp fVauwxRxbJugTEiaFOkbT069XRXy uPiwJy6ZHaq1Z7PkYyd5 VRLiiUxzWM1ypBKgNAgwNd8pkUtz mFhqPI6lGQSibhklt913LzIba8hp EMOmsEGfXShpJVP6A96u k9J5GBQqUZLfDXU6dIZ6gD2mcYas bjogbGVmdDsgdmVydGljYWwtYWxp C095LAUmjYvfZhNvtKPj OjwvdGQ+HL96xo51C2KmMhvjNpm1 NWDtXVP1jZT4zT8rHUEoVSowj4T5 nQN5L7YhjuBejp8vv0en YXB (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 [facility] Coding Summary HTMLBase 64 TqszppmcDWf5nZf+PGhlYWQ+PE1F PUFzC69iwSLhpR7aQ5PWVVnWZcyo CVGLESlFEnAqtbFeAN9xfRJpMXNu IC8+KQ8eBZJoDzsufPWpt4M0oBS7 O23cdq9kXXxfzVX3SFMwFeTtmhnc t9pgiQj4APowRyjjUfCi TCRdyS91CYK7gB88Al75tSLvhMPj z1ecvSz3OdFqGWOvQRX8uMccJCgj s7BuUZXvG97hjNAwz3U4 BFDbiRdctFFxSiXkcJC6xD5hQUim csdkf7tyacjjXwp6kv29rWGhc9Z2 qRT6Y6YmpfW4CCCbsETq OdrqhOQTvO4xfmdnl4cwttwbQbXj IFKcFUo5CNi3DVKfoTzfYqZdSV91 GGG3MTJtxpKaE7LtSLZf iYpoNtD1q2W7Tn5WV7IQGlvxS4CM TUFSWTwvdGQ+UX26sv84U3YnKhrs Ynu1FHDrRAS4lTE2cW0z ZMJeYTzab5G8dAY0W7QifwFlfe7m l8onIFIyMQkxY97cwUWih3U6ZDZs gHC3FHJjcCrgMgVbcL96 Oyc+VIBrmEepu8VgQckeu7zkm8ee zLb1GaehHUYaqgPdlHuvDBR4x8Ew Wy9tFPScnGT9zDS4oL3r JkQhPqU3SAyzQ003EpLmqTYbHiti E14aS7ZgrNR+LYUcVob7SCCnrIas GT6uI7JmVVGyptgwmNUl gBjpUJ4bOUPmedcbSQUozU7rZMOz D1o6MwOdTqE4GMjxS7VyXZHjeiyt Ha04nE9kEkEgIdG9TKnu R8ChmiM4WOMnjEGtZSplYDC3C77r q5Q4XZNcJVHiBRE1fDE7dM1pwJed bjogbGVmdDsgdmVydGlj VBwfPYkuX751LNVymJdyCpWbXChw ZyBEYXRlOiAgMDMvMTEvMjAyNDwv dGQ+RGQcXQT6cFgzGFBv kNUuOWpwCw8apPkcsJglID3vAFUz oaerJUNmfZ0rFRGizMJbuVpyVA9h OFPsifzed773CkChAIJ8 YXEpmNGmF0JkwQ4wWyBcXGFfJSRe L3XyoZAuZBacL283KEpgBeB7NHWe uwVoC0RxLWHrcQzpEvZ6 w0B6Ca5Lb2HxthefM9RbsIRvLsUl OaffYSk3K1XgFljyqEI+TB67GSVp UT19MQc4MPG7pLkeTBfe EKXxG5BmcD6rLzFvEKAsPEWgJbs+ PHRhYmxlIHdpZHRoPScxMDAlJyBz yDicBP7dHa9kJIVdVRNh fRwgmMPzNsXlb5qzZHHuGXgeUK1b tGkbX6BkdYJ8UMMzj2y5Jd72D61u Y4VbhPJ+CVLmkZW9gLN8 hU6pTjTlSpB6SQrrW353EwWxvETj Sjxus5swy6whbCt6QrG8LNMfraQy dMefOVV6g3TgWx12Q96a YZifGQNzNMJlZCQlKUBhxHhdnq8r dU2mWp4+GZJpvUH3hXM0hI4sSnFm AtQ9CAvpZ237VcYvjAKm Sbkev4wxg2inpOe6HqFkTLPdyeAs hPsgVAV8j1IwEt64C4IqiBwuy9Di Jdz7dm19iUAqg8S9bZR6 V1FdGCGhrkvqaDQfyDzuNY9kVNUo qemcBSXueM2zCNQhG2y1NjCdVtI5 UMpcK4YbxoJ5XTQseFVt DWAlmBGBmI7kokztn1svkrzgAsBy LXHfFTu6CXp2RNElvFqvImGtNBQ0 VhV2ELS8rYNkfS2slZab vjndyN3qJcw+CSX8iGExcVFRXE4m OjwvdGQ+QRZaZNZ0bEqqXYzkAOCf iH1bEZHsB6i3VjRfGzE2 YAplU4IfquN5FKGvvEJbLVZatUBK mF7rufwzz0wxjbraGpZlOGWkHAr4 RVh6EAYcmAufDdEfFFG3 SkR1VWU7dBRtjE3zfIxfuouxcU5q Oyc+VqjeoCcnXYH7HYu7B7FyKwt6 SLFfbKdyEM1prXEgELta Qq7jjKmkcBskFK4cKDWtmhnkk384 RxTxl7zmEUOybUCoCTnpLQO3S11i a5B8JAWiMFXhDLD2gRY4 mQ7bnQusviaptMFctApxlcBuuIql IYofGWwbY394IUKnzQhzVrCvUXt2 V6KeLdd2URUzaXwgLZ5t hLByGFraPc2vcIulbPqaUY4dVHEf ahwcm453OnJvm0ncBTWtjCNzSAod RFP5Y82jd3J2WITsEEQm DRN3bLS6yQ7ejZuyhxhhrJBpjKwa ejZfjNdhFKeoVQvaX361CQAekRei DrCmfAn3E8CeYnn7EHYp dKmeCE1wqLSwVRgrTg4shMhrjXey US2aGHQadksrq542BxQcr6paTMAy gROuTUreTWE0J03lt6P7 ZSRzTOOfKPP9iSJ6iN6eiDpzzrik sRQihOtueiYgrQekZZhoWZiyN038 IHRvcDsnPlBhdGllbnQg EHgbDMx2E2VsKsbfxGM+EM11TPPw XM41tYRieIGdr9gpaWe3MfSjSUSi EOI3sTbcGKwdz9ZzHMKa B99deVHmp4N2WZMarFjmlTSqUxIx vXV1oI2wXPchpmjpn3dxtybmHxqc w8cgzz36zP83N00oNXgs CLYsPNIhASIjIVOxxAvjmb9bgC6y Ii8+SSHlaPJ5iMF4hE1fMKUgNzU3 LAkxN756YhMafKRwUres p0yox2hvzYo3FdR3TVDfphGsjNda IEO5y5YyMa14I47ePNpsMREwQYJf ENYgVNIzdQdtye0qkU5c Ii8+JAIiyUP7qHA2iM7gVoUsAvM3 ZZhfE669AfNftUSsJeowI89xF8Tg dXA+YFTmWfi7LTOdmUxc IJ1hgMJtKFydGq2sJZP1EnUfUtCe FHgjX1TuLIOcthdwsycwfQI4FUPm QEJpbI84Xf2bmQlyUHTi aOXLdJ2jpxwqb0eadzvyVgSeFVIv FTd6LEx4VPZqxEtpBbIzFAN4YcG6 CGE3jYUopQ9qsWrbgqpx zA1wB0NkVSMydyuxAu07wQ2uNfEz KlF3MXrrPsi+U1QYXISOOXDGOZ2C KbMIXO08PT17tMTuj8N1 eBP5I2RlHRAycrlrwwhnvRI8DCSj QHUewS26aAMmEEjaVw1ru5A2d976 BXSxXTOrrD71Gp8cwJqx RKIruIHPtT1cxehre7ktuwarSbIr OXZxZQh4LBf6NNOdjSzzMpLzOGQ7 QeZ2FKK8oXCzvE3tzTyy ztuerE4gErx+VKApKTAeLRz8Etrc dGQ+NOCoUYV8uRcqTUyyWHVbkV7p CUFxW4z1AdYoXpO4MXxk O5EbNLIdwlbdGd96eY5zYfTgSzK4 LEwqZ5ZuvlF1KDLiwMPeWRmbXPU0 N50kq1I5FXRoUAWbXOR5 hLG2xG9qiDchwjojuMHtmGymhxUg uJblKYycDWtoY701QWVatRucDyG0 BVycINLvUT35IT16sKIy c1N1fKB6D7IlXIRuljtnoccffMN2 KCPcBRPapQ47tRAgCOwlGw3xf3D9 v017KUXmLFUxgL89Ht1x cSdlQKZlvGZWmW1uxdvnt8xrsotq LqUzCXUtGFa0CRs5YBAnyGspTuLm BEP5WqN1KKT2mOEsxH8j aOygpaprjV3dBxj+TUFMRTwvdGQ+ UJUwRGX3qKcwKJvyIICedU0zWMFf J0h9FzZnRxZ6FTmnE4Ml NITybvduUy09jW7kTdCnDhC9BBpt Y2OwocP3UUSfrEEiQObkEAF8C84k t0U3HHHtNPXcDYS3fEV6 uT8irZdwpakfnVBxuTltxaCikPtn LJvxAXhqD591MBXppScqZm7VYY23 RS52R7NiAmteqYGzsBO+ PHRhYmxlIHdpZHRoPScxMDAlJyBz zWevRX8vGu1xCTFxZQZczJjpmWZh HhKss7rsODGzEZkwRK8v qSiiG5KpcJY6TEXrv6h1Mz89Q01j B1NyqWB+SLRijST8pCK7tI3aBmOp TuR7PHpmL261RaLbhCIb Kmjun4cgy6leyWl5BmVoFRGzyiCl aVddAZU7y5KrRp30S01aRWajBXCx MRJnSNTvGGSdtLiwoo7m cR3qIw7+DNCinNV8fAO3lU1xChOo OyI9MSnzH947XuSprURzRufyI08a U6YtrWD+JIYzVog8QCXd cTkdBS3ohNIkARufGb2pRZA0EcIp NhCfLBvlT8VnYULkeshvdhftnAU1 UHCwNOOntK80Lf0qeCmg Ea7aVCXrJZJ8DGYvvKBaZ4ZkpC6d JtGaTCRyKPNoL7QkmAGlJEpiU580 CDcyPwF0LDQpogHpV2Vp WMJcmQtiCjJ9o9P7Vr1CrMzjzZHi ZO8pKqAuYNz4Y3UdSnn9XMFrmTrm NR9rbPWgDBxaMh9lsQvd wMvhUA4wEWNdkwnlq193UvCra2ti AXEspXOeIUpeDUW4P27mf6L2VHEd FSHfUCT7zQK0fI1euJgg bjogbGVmdDsgdmVydGljYWwtYWxp H793JWYeoOidJlNPHyn2B0ZfZqh3 YQUfeDheWT4fcZKdYVuf Xm8tcUmjiMsqVB8wLOVuryurx690 QkBcq2zeCTPtfOGvGTecLCQ2W16m p9Q4BVFiYVHaISA9nTD7 wR1weUwurfqjuPYbsFbhchOrqYzo ACkxGUdyM673ILJbfJyrMo1BYvr9 B2YnMvg2BLQllYyjEG1c uGVfTFfmWc8sxDrrsQdxCV6rIJRd xwzdl282AfFjt3agZAVcgSVePVyy DDC7U33hg8G5LGKiKCXb URS4cEU2oY0tuMdsdxrujUUahCtt qbFzlLbmQQeaJSupW804SXTujDir PlBheWVyOjwvdGQ+PC90 nz71K9MxLuvdMfm5JAGfSXX1tZX9 lN9qIIPvXGocs5Q0eMJ6L5DadkCf cy6nf7zpWTBlUKdjC11l bGF (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 [facility] Consent Formson 10-24-2023 Consent Forms [id number]#1.00OTGTIFF [facility] Inpatient Patient Summaryon 10-21-2023 Inpatient Patient Summary [place] [id number] Patient Discharge Instructions Name: ENRRIQUE MADERA : 1965 Patient Address: [address] [place] [address] Primary Care Provider: Name: LEON MUNOZ DO After you are discharged if you find you have any questions, please, call [phone] ext [phone] to speak to a nurse. Discharge Diagnosis: Prescription Information: If you have been given a prescription for narcotics, seek immediate medical attention if you have any difficulty breathing or any sudden status changes such as confusion and sleepiness. If you or anyone you know is experiencing suicidal thoughts, mental health, alcohol and/or drug addiction problems; contact the Mental Health & Recovery Board [facility] 07/03 Crisis Hotline -Text 4HROL ll 261149. If you received any narcotics, sedation, or any other medication that causes drowsiness for the next 24 hours, unless otherwise directed: ? Do not drive a car. ? Do not operate machinery such as power tools, lawn mowers, drills, sewing machines, or stoves ? Avoid alcoholic beverages and drugs for allergies, nerves, or sleep ? Do not make important personal or business decisions or sign any legal documents [facility] would like to thank you for allowing us to assist you with your healthcare needs. The following includes patient education materials and information regarding your injury/illness. ENRRIQUE MDAERA has been given the following list of follow-up instructions, prescriptions, and patient education materials: Follow-up Instructions Medications During the course of your visit, your medication list was updated with the most current information. The details of those changes are reflected below: Medications That Were Updated - Follow Below Instructions Other Medications Updated: traMADol (traMADol 50 mg oral tablet) 1 tab(s) Oral (given by mouth) 3 times a day (scheduled) as needed as needed for pain. Medications to Continue That Have Not Changed Other Medications buPROPion (BuPROPion (Eqv-Wellbutrin SR) 150 mg/12 hours oral tablet, extended release) 1 tab(s) Oral (given by mouth) 2 times a day (scheduled). Refills: 1. FLUoxetine (FLUoxetine 20 mg oral capsule) 2 cap(s) Oral (given by mouth) every day. Refills: 1. gabapentin (gabapentin 600 mg oral tablet) 1 tab(s) Oral (given by mouth) 4 times a day. TAKE 1 TABLET BY MOUTH THREE TIMES DAILY. Refills: 0. hydrochlorothiazide-lisinopr il (hydrochlorothiazide-lisinop ril 25 mg-20 mg oral tablet) 1 tab(s) Oral (given by mouth) every day. Refills: 5. sildenafil (sildenafil 20 mg oral tablet) TAKE TWO TO THREE TABLETS BY MOUTH DAILY NEEDED. Refills: 3. It is important to always keep an active list of medications available so that you can share with other providers and manage your medications appropriately. As an additional courtesy, we are also providing you with your final active medications list that you can keep with you. buPROPion (BuPROPion (Eqv-Wellbutrin SR) 150 mg/12 hours oral tablet, extended release) 1 tab(s) Oral (given by mouth) 2 times a day (scheduled). Refills: 1. FLUoxetine (FLUoxetine 20 mg oral capsule) 2 cap(s) Oral (given by mouth) every day. Refills: 1. gabapentin (gabapentin 600 mg oral tablet) 1 tab(s) Oral (given by mouth) 4 times a day. TAKE 1 TABLET BY MOUTH THREE TIMES DAILY. Refills: 0. hydrochlorothiazide-lisinopr il (hydrochlorothiazide-lisinop ril 25 mg-20 mg oral tablet) 1 tab(s) Oral (given by mouth) every day. Refills: 5. sildenafil (sildenafil 20 mg oral tablet) TAKE TWO TO THREE TABLETS BY MOUTH DAILY NEEDED. Refills: 3. traMADol (traMADol 50 mg oral tablet) 1 tab(s) Oral (given by mouth) 3 times a day (scheduled) as needed as needed for pain. Take only the medications listed above. Contact your doctor prior to taking any medications not on this list. Diet & Activity Patient Activity Level: Patient Diet: Patient Activity Restrictions: Comment: Patient education materials, if any, will display below Viruses or Bacteria What?s got you sick? Antibiotics only treat bacterial infections. Viral illnesses cannot be treated with antibiotics. When an antibiotic is not prescribed, ask your healthcare professional for tips on how to relieve symptoms and feel better. Usual Cause Illness Viruses Bacteria Antibiotic Needed Cold/Runny Nose NO Bronchitis/Chest Cold (in otherwise healthy children and adults) NO Whooping Cough Yes Flu NO Strep Throat Yes Sore Throat (except strep) NO Fluid in the middle ear (otitis media with effusion) NO Urinary Tract Infection Yes Antibiotics Aren?t Always the Answer www.cdc.gov/getsmart GET SMART Know When Antibiotics Work [place]. Department of Health and Human Services Centers for Disease Control and Prevention April 2014 [facility]-21-[facility]23 MAGR Intraoperative Record MAGR Intra-Op Record Summary Primary Physician: JACINTO OLMOS MD Finalized Date/Time: 10/21/23 08:54:24 Pt. Name: ENRRIQUE MADERA/Sex: 1965 MALE Med Rec #: [id number] Physician: JACINTO OLMOS MD Financial #: [id number] Pt. Type: D Room/Bed: / Admit/Disch: 10/21/23 07:29:56 - Institution: Case Times MAGR Entry 1 Patient In Room Time 10/21/23 08:46:00 Out Room Time 10/21/23 08:55:00 Anesthesia Start Time 10/21/23 08:48:00 Stop Time 10/21/23 08:53:00 Surgery Start Time 10/21/23 08:48:00 Stop Time 10/21/23 08:53:00 Last Modified By: Kellie Green RN 10/21/23 08:54:15 Case Attendance MAGR Entry 1 Entry 2 Entry 3 Case Attendee Kellie Green RN, Diane RN Kraus, Sarah E RT (R) CT ARRT Role Performed Injection Mold Tooling Technician Injection Mold Tooling Technician Soil Conservation Teacher Time In 10/21/23 08:46:00 10/21/23 08:46:00 10/21/23 08:46:00 Time Out 10/21/23 08:55:00 10/21/23 08:55:00 10/21/23 08:55:00 Procedure Medial Branch Medial Branch Medial Branch Block(Bilateral) Block(Bilateral) Block(Bilateral) Last Modified By: Kellie Green RN, Lauren L RN Wheeler, Lauren L RN 10/21/23 08:54:16 10/21/23 08:54:16 10/21/23 08:54:16 Entry 4 Entry 5 Entry 6 Case Attendee Massimo Moffett RT (R) Pilo Chan Hunter SENIOR QA ENGINEER ARRT SENIOR QA ENGINEER Role Performed Soil Conservation Teacher Scrub Personnel Scrub Personnel Time In 10/21/23 08:46:00 10/21/23 08:46:00 10/21/23 08:46:00 Time Out 10/21/23 08:55:00 10/21/23 08:55:00 10/21/23 08:55:00 Procedure Medial Branch Medial Branch Medial Branch Block(Bilateral) Block(Bilateral) Block(Bilateral) Last Modified By: Kellie Green RN, Lauren L RN Wheeler, Lauren L RN 10/21/23 08:54:16 10/21/23 08:54:16 10/21/23 08:54:16 Entry 7 Case Attendee JACINTO OLMOS MD Role Performed Surgeon - Primary Time In 10/21/23 08:46:00 Time Out 10/21/23 08:55:00 Procedure Medial Branch Block(Bilateral) Last Modified By: Kellie Green RN 10/21/23 08:54:16 Surgical Procedures MAGR Pre-Care Text: A.20 Verifies operative procedure, surgical site, and laterality Im.150 Develops individualized plan of care Entry 1 Procedure Medial Branch Block Primary Procedure Yes Primary Surgeon JACINTO OLMOS MD Modifiers Bilateral Surgeon Comment BILATERAL L3, L4, L5 Start 10/21/23 08:48:00 MEDIAL BRANCH BLOCK Stop 10/21/23 08:53:00 Anesthesia Type Local Surgical Service Pain Management Wound Class Clean Technique Details Closure Technique N/A Entire procedure No was performed via laparoscope or robotic assistance Last Modified By: Kellie Green RN 10/21/23 08:53:40 Post-Care Text: O.730 The patient's care is consistent with the individualized perioperative plan of care General Case Data MAGR Pre-Care Text: A.350.1 Classifies surgical wound Entry 1 Case Information OR MAGR OR 02 Case Level None Wound Class Clean Specialty Pain Management ASA Class N/A Diagnosis Preop Diagnosis LUMBOSACRAL SPONDYLOSIS Postop Same As Preop Yes Postop Diagnosis LUMBOSACRAL SPONDYLOSIS Blunt or No Is the procedure No penetrating injury considered occured prior to Emergent/Urgent? the start of the procedure: Last Modified By: Kellie Green RN 10/21/23 08:36:02 Post-Care Text: O.760 Patient receives consistent and comparable care regardless of the setting Time Out MAGR Entry 1 Procedure(s) Medial Branch Block(Bilateral) Time Out Checklist Verifications Team Introductions Yes Confirmed Identity, Yes Completed Procedure, Incision Site, and Consent(s) Presence of Yes Site Verification, Yes Necessary Site Marking, Site Procedural Marking Equipment, Devices, Alternative, and/or and Implants Site Marking Verified Exception in Accordance with Facility Policy Anesthesia Review Antibiotic Received n/a All Anesthesia Case does not involve Within an Concerns Addressed an anesthesia Appropriate Time professional Interval Prior to Surgical Incision Surgeon Review Anticipated Blood Yes Expected Case Yes Loss Risk Addressed Duration Addressed Critical and Yes Non-Routine Steps to be Performed Addressed Nurse Review Equipment Yes Fire Risk Yes Checks/Concerns Assessment Addressed Completed and Interventions Performed Diagnostic and Yes Sterilization Yes Radiological Test Concerns Addressed Results Displayed are Appropriate and Labeled Other Concerns Yes Addressed Time Out Kellie Green RN, Time Out Time 10/21/23 08:48:00 Participants Verona Boucher RN, Priscilla Moreno RT (R) CT ARRT, Massimo Moffett RT (R) ARRT, Pilo Chan SENIOR QA ENGINEER, Chandler Herman SENIOR QA ENGINEER, JACINTO OLMOS MD Last Modified By: Kellie Green RN 10/21/23 08:48:48 Patient Positioning MAGR Pre-Care Text: A.280 Identifies baseline musculoskeletal status Im.40 Positions the patient Im.80 Applies safety devices Entry 1 Procedure Medial Branch Body Positi (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 Normal [facility] MAGR Preoperative Recordon 0 10-21-2023 MAGR Preoperative Record MAGR Pre-Op Record Summary Primary Physician: JACINTO OLMOS MD Finalized Date/Time: 10/21/23 09:04:04 Pt. Name: CASSYENRRIQUE./Sex: 1965 MALE Med Rec #: [id number] Physician: JACINTO OLMOS MD Financial #: [id number] Pt. Type: D Room/Bed: / Admit/Disch: 10/21/23 07:29:56 - 10/21/23 09:00:00 Institution: Pre-Op Case Times MAGR Pre-Care Text: Patient will be optimally prepared for surgery. Patient is free from s/s of injury. Provide information to patient/family related to plan of care. Verify patient allergies. Confirm identity and verify consent before the operative or invasive procedure. Entry 1 Patient Arrival Time 10/21/23 07:42:00 Preop Departure 10/21/23 08:35:00 Last Modified By: Melonie Martínez RN 10/21/23 09:03:59 Post-Care Text: Patient is prepared mentally and physically and is ready for surgery. The patient remains free from s/s of injury. Patient/family express understanding of plan of care and participate in decisions affecting his or her perioperrative plan of care. Allergies documented appropriately. Patient identifiers and consent correct. General Comments: Pt arrives per amb. Pt denies any CP, SOB, Hx of S/S of flu, or sleep apnea. Disch instructions reviewed with pt and verbalized understanding. Finalized By: Melonie Martínez RN Document Signatures Signed By: Melonie Martínez RN 10/21/23 09:04 [facility] Patient Handouton 10-21-2023 Patient Handout [facility] XR Sacrum/Coccyx Minimum 2 V iewson 10-20-2023 XR Sacrum/Coccyx Minimum 2 Views EXAM: XR Sacrum/Coccyx Minimum 2 Views HISTORY: See Dx left leg pain, numbness and tingling. COMPARISON: Lumbar spine study dated 04/22/2023. TECHNIQUE: 3 views of the sacrum and coccyx were obtained. FINDINGS: No obvious displaced or deforming sacrococcygeal fracture, small undisplaced fractures may be difficult to identify acutely. No obvious focal lytic or sclerotic lesion. Sacroiliac joints appear grossly unremarkable. Moderate degenerative changes in the visualized lower lumbar spine similar to the prior study. Mild degenerative change about the right hip joint with minimal change about the left hip joint. IMPRESSION: Sacrum and coccyx study demonstrates degenerative changes as described. Follow up as needed. Final Dictated by: Jair Rae MD Dictated DT/TM: 10/21/23 8:00 Signed (Electronic Signature): Jair Rae MD 10/21/23 11:53 a Technologist: TIFFANIE [facility] Consent Formson 10-19-2023 Consent Forms [id number][facility] Sub[facility] Agreem entson 10-19-2023 Controlled Substances Agreements [id number] Outside Record[facility] 10-19-2023 Outside Records [id number]#[facility] Progress Note - Provideron 0 10-19-2023 Progress Note - Provider [id number]#1.OTGTIFF [facility] Consultation/Specialist Note on 10-12-2023 Consultation/Speci alist Note [id number]#1.OTGTIFF [Electronically Signed on: 10/12/2023 12:26 EST] LEON MUNOZ DO [Electronically Signed on: 10/13/2023 11:57 EST] Lillie Kuhn [Verified on: 10/12/2023 12:26 EST] LEON MUNOZ DO [Transcribed on: 10/12/2023 12:24 EST] [facility] Outside Recordson 10-12-2023 Outside Records [id number]#1.OTGTIFF [Electronically Signed on: 10/12/2023 12:33 EST] LEON MUNOZ DO [Electronically Signed on: 10/13/2023 11:57 EST] Lillie Kuhn [Verified on: 10/12/2023 12:33 EST] HOUSE, LEON P DO [Transcribed on: 10/12/2023 12:22 EST] [facility] Provider Orderson 10-06-2023 Provider Orders [id number]#1.00OTGTIFF [facility] Coding Summaryon 10-05-2023 Coding Summary HTMLBase 64 UsexliirKRj6oEc+PGhlYWQ+PE1F ALTzG82pkCWpzS9uG4ENBSsELdga NEZCSDsTShDgfaOxET9rgOEvODXv IC8+MO2qBXMxVzpvgRTcb0Q6cSJ4 C86sbe5kYYyaeDQ2LJIcNzCvdrsw r0lheJo9JQveAxzdMbXu BKSakF09XBU0rK98Hv88zAZuaKGb v5odmTv5YdXpRRElUWH9xIexOXoz l2NiIBIhK36ncGKqm1W4 LFRxqMwxeLTyWbSyyFU3gU0dXQsx demzd7zlsefxNhk9rk81qNGuv9T4 jPF7D3BvxjC7PGIrtMEx ZxskbCPToX8vtmkan5dmahauRhTw WKTnHFx8IMy7TXOzqOfsXaWkRK37 DZT9RNTuwaEnL6SeBHYj eSqfCeA8h1J2Rn6ZU3JUUvaxN2JT TUFSWTwvdGQ+QK37jo68S6UfVvel Ykg2ZQTsMTZ5cKR6pY4b OJYqHKibw9X2aOU7D2HtncPqzh0h a2oyQQHhSBxwE39zcTKek6A0HZOh bUP0QQVovWcjZnAelI73 Oyc+PCOimFqms3ZfSlfqf7ccp9pk eYq3FknsBGVjcrYcaLrnUCU5s4Yi Kq8oFLTbvLS6sJG9fQ7i MuEiOwW0YPzrV670GhYhsZAyWeom E62oS9ImfAJ+SANzGzk6SGAazYpg IO2cI7MqGNOdwagruGAw mWftZN9hIJPskenkVIWvaS3xJMMc T3o6OsMmLqN7EYmzT1AbQFDxobkh Du00yP4jAkJcKcQ8SCas U7KbtzO5HUKuzUFaIJexJZS8W75f j9I4FYFfYCExRRR7xIO2dY0wbPgz bjogbGVmdDsgdmVydGlj FHwrVEgrX598BZFbgLjmVaNvSYqx ZyBEYXRlOiAgMDIvMjEvMjAyNDwv dGQ+PDPnNBU9oIgrPBSc hRZtRWbpQn7wxNsgqPqvTU3ePHXy adzsFQBxaB8cQGXgsPAriXenPZ7i ZKSjkdcmz893XfXsUKL3 TMLsiWAiQ5IeqA9uBoDaCDBzKQDs S6AwsECzIVqoH549GSapEdZ7OXZw wcQcE6KiESDitSbfPeD3 y5Y0Dv7Az9KouvohN1PlaSCcLuAs QvwlIOf2D6ReDuuhtJF+BX56PYAb IB92WCu5BVC5eWafGOry FALqA0EieF2lFwUnLEFsHNOeIxd+ PHRhYmxlIHdpZHRoPScxMDAlJyBz cPuaYF6mFm9cULSdOWUa gNkmbLJqDsPmi2vjICNyJBaoAV1v dKrjW8PyvJW8LXAae1f7Kt18Q77u B8VebSK+IKFreLJ2cVJ1 nF0kKpSxWbB8LDqcW130LkBohYIx Ymvhz7yrh0bviYg8EoE2CFGyziTm tVdyAIE2c7QtYi96A49s UGgrUYGzSYJvJWMvMBOdcSawvm8o cN1mBf0+JBWheKJ3vDS2hZ8cTlVj HuX3MBgvX218NhNumEYo Jhmzx2stv9ufcXf1TxDdLCPgrsBa fJemKPK8z9WmCv12O0RvhGudl7Nn Mwz6dq26qHAoa0M3tCR5 N0SkCCMffyhvnVYbiZcnYX1mLZEs ljwmCUKbhL6kVGDoI4k7XfHaYkF4 PKtwJ4OfnnC7UJUtdDNo NGBizPNStP8jmgufb5jjtyrkUqRo ZLZoBYf6JPp0UDWtuBbiFjIfAYZ5 RbO0FBC6qSKucA1owTpf xjzhkP1fWyq+TZL7wCXcvKSKHQ3m OjwvdGQ+NYMmJLN7hVycPWlqWZDd yO3rCBExM5i8LpViQfE0 XAmjW8RinmI7FIWrdDZhCQCaiZVI kW3wvogem2ctnjmtQeIxNMDcBNx3 KNy4WYVfkKeoDlQhTFV4 IkK5ZYB2nXHtcH6afQxmaufjqO5a Oyc+RidcfNvxDZU2CEk0I3RuEuh0 TDTjxGwmKG1xpAHiKCln Re1ncNgmyFrdQQ5hMLUiinjcz869 DvCjm4cxYMWroEVeVQgxKNY9K60y a3O9XOAmGYFyRET1iCZ4 kY2fcJrxpmabfZAsbTftgfGmuNdj WIssVJouN836WWTccOhgQaGwHCb8 M9YxJpo5MUJuiSdtPC6a bAAtWKigFp1vdKuqmExgZI6eQKIh vktox527BkRez0gbDJNwoOSxUKhi IRZ7B01jm5S1CDMyXZZi GMY8jAX2xS3ktKvjzujpcNYdoQgd vvKvjRiwISunNAmpW013BFKghQru EhDwgTl7F8ClBac7AWTr gTylYA8otJHrYIdrKl9vmCmdgUtm IO2eGGWdebjdf563IfErn7gpUOOc wAMcQXnlZFH7H69as3D2 VLRqVCKzYYD8vNZ0bV9thLxnwxgc wBActEufeyAzjBseUGigOFtnN174 IHRvcDsnPlBhdGllbnQg WNclLZp3A4QeNpofjJM+PA25XDOw EB24bJPvkHMzb7xamDp2LdZxGZDp QEV7sGioILcpc9DiMYUa P65ifLNhq4L7FPIkyClkrOVqUqSi uXY0zY5nYIkiorwnf1riiywaCdcw j3hkfy94gH71M72bWPnm OZRtETCpKQBtGYKfdFjdfh6epM4u Ii8+FELneNK9uMY0yJ2gJMEzPlG1 KIwbQ872XfUmxHFqFnzl l7okw9zyqZe0NcY9XYVknjEyvMeu RWT5j1WiJc49U16iHNktEAKtLQKn ZEWvBDUbxFhaal1opU0u Ii8+RMJxjJN2oUX3hR4cNrYlYkO1 UYbvJ992LdTdzANkCrkiJ47xN6Fk dXA+VGEaEbr4XWVsjZxm XG8avKXmHVqjDd7lRXH5TaVaUoCg OSlvS8NhDWXsofqgbcojjVF2CNAw BHBybL96Sx0ksQrlAESf pQXVnQ4shbmwu0lfkwamUzEyRDGt TLf3HEl6JIVnhIuzPuTvIGL1LcA8 QPZ5fHOcwG1mlImsnody kV4mX3HjCQIvvdimVj22sL3rIoKd JlM4SDbvMvk+K6MKYJGFJHJGAK5F CdFUTV75YW77sRPlr1S2 pLC7A0RxTVMlhdraycyjiAX8VHWu NXMymR91qIMzKFnfKt4xc6S5n479 KIKxHKRmjL29Bl9rlZnu QICwkBKKnB8vurypz5cwrqdhHfUt WOMdUAe1HZw4HDQmtKdwZhHaNMM6 SvM6FIJ8zMRpgK1cwHnj cmpsvD7hAni+RLNzOZWxAYm7Hmuu dGQ+SKCyUAQ9nYqlMIslEHQuzV2z PZHzE4g0WbCxUhU1OOgq C2CeOBZefagpFg85lU8zRlZcSyT2 ZXsvM9MoytO6EQGlrJSbULgfTHL2 T77rc3P4HXKjRSZdUOA3 yMT0gP5irXnqbbdpwTBzvGeafnOd zFqdJEnyQVvxH690NALwaNmoUhI6 QKqvHPCgFP82TX39oOHo m7O8kTH1W2TpRSOgymhtjehfkHC4 CGGoLTEhiC08aKYmUNekMt7oy8X0 e963PYHlNUBnaM65Cf3x lIjjTLRsnURRtA2aithyv5lresog WdLxLJEjZLc4UFq4HMKgpPcxWjSb SSP0OdX0CHV2aGRasU8j rZpvzfxvrI2oJzp+TUFMRTwvdGQ+ UBBwZYM4sBhrNLdgUIMvvF7sTNEj F6q0XmSqZuB9FIoaN3Ao MHSzmeszGh00jY2mIoFpKwM2PKgz V6YwfrT9AEWuaKUsZLqyPTT4Z72e k0N7HABnGYDuKHX3aYJ4 bM8noFwiwjajeWXnxQmwneWswBjn PAmiJAmyC130RSWwcPyvWnHsH1Wz uhmbGqSEcWYiMZWhAX48 BR31EB46V3MhRqvaoSWkhNZ+PHRh YmxlIHdpZHRoPScxMDAlJyBzdHls DO1bAr8bXGQuNYEaiBjo pOIiNaCcv0snNYDgFVpnUM3nrXbs P5GhoOT2XUShc3s9Sq33K01wA2Kq dXA+FUQieRY5pYF7bT9k KbZsYaB4XQqeA094LaLnhBDyZwbf i9jmo8fksKm0BwSwSJOcupCkbOhf ZDL2u3AxNk37K62oEUaz TBLnUVQfJXZnXTXhdMvhwp8stB5p Ii8+GIKfkTU7cFG7gT5rFnQhBuW4 OAieE999XhAyhJEgZtyk Q91lP2NhqCD+NURfJyl4PUCbfJfb GT5byRTePOfrRi5rFPE3FxXbEbTr YYzyQ1IjSYVlwradpakx hXE7URWzHISrnA78Ct8egKscVj4n ZFWzNTV1XENkeQFsL4AtvV5oXjBw HYWhSPAtR2StjAAfJHir M540AKprMsL3JVIrvzIgB0LhHPGk vOxeAhE5s3O9Za5UeRrkyXRiXT6t DpHvWOm6S9AqFjj2IQVk eWufBS1xzNFiHKaeLw1grLvlgLye MJ7rRIQruqwpv125ArWtm1vpLVQc xCAyMPsyVLS9X10fk1S6 HMJxSBOkNOU2fJW9yD6ijTbkqlmv aZTotOorltZddMpjVXfiNLceF152 UDEifDiyJvPTYms2S0Wz Qna9NDEhoFdqVV7tzGDwYTvjLw9x zCnyzDdyCG0sGNJoyqanc221AlAu h9nmMKUauEUwJUqaKMV2 T02nb4U8WVEjTQDiFCV9sCI1zM6d bGlnbjogbGVmdDsgdmVydGljYWwt UWsiJ014QXObfNtpCl1G Lxh1A8SbQyv0QMEhmXlkSQ7mjLSq FFfqMc7uiWfwpAnvXW6sWOIdqpbt t216PrEuj4ifJXTidMRg LKtwHSQ3Y40nx0N8AHMmHVKuMXZ9 zSX9tR5jyOmfqfgtdMFqtRvznaDf zBtbCGyxROeyE512EFSx cDsnPlBheWVyOjwvdGQ+IM01ql15 K0WkNydnIta7ICUdLNY0tHT1hZ1r EBJsZWulh5N4eAM3T4Qw cmR (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 Normal [facility] Rad - Other Radiology Report on 09-29-2023 Rad - Other Radiology Report [id number] Normal [facility] MR LUMBAR SPINE W WO CONTon 09-27-2023 MR LUMBAR SPINE W WO CONT MR LUMBAR SPINE W WO CONT STUDY: MR LUMBAR SPINE W WO CONT HISTORY: Status post lumbar laminectomy; Lumbar radiculopathy TECHNIQUE: * Routine multiplanar multisequence MR imaging of the lumbar spine was performed with and without intravenous contrast. FINDINGS: Extensive postoperative changes in the lower lumbar spine with associated laminectomy changes at L3-L5. 2.4 x 1.5 x 6.6 cm fluid collection within the laminectomy bed associated with robust, peripheral enhancement. Sterility is not well assessed. Additional signal abnormality is noted within the paraspinal musculature likely compatible expected posttreatment changes. No convincing enhancement is seen within the thecal sac, distal cord or cauda equina nerve roots. There are kyphoplasty changes about the chronic T12 compression fracture. Chronic compression of T11 is also noted. No evidence of acute vertebral body height loss. Grade 1 retrolisthesis of L5 on S1. Moderate multilevel degenerative changes most significant at L5-S1 and to a lesser extent L2-L5. L1-L2: Mild left greater than right facet arthropathy intravenous to minimal bilateral neuroforaminal narrowing. No significant spinal canal narrowing. L2-L3: Mild diffuse disc bulge with asymmetric left foraminal/extraforaminal components, decompressive laminectomy without significant spinal canal narrowing. Mild bilateral neuroforaminal narrowing. L3-L4: Mild diffuse disc bulge, mild facet arthropathy with decompressive left hemilaminectomy. Mild spinal canal narrowing with wcna-le-fojrqexn right and moderate left neuroforaminal narrowing. L4-L5: Left paracentral disc protrusion, mild facet arthropathy and laminectomy changes without significant spinal canal narrowing. Minimal narrowing of the left subarticular recess. Jxoj-ig-bhfbdiel right and pwjotogn-ez-sncldd left neuroforaminal narrowing. L5-S1: Laminectomy changes and facet arthropathy. No spinal canal narrowing. Pgzq-co-itgukvjj right and moderate left neuroforaminal narrowing. IMPRESSION: * Extensive postoperative changes in the lumbar spine with robust rim of enhancement along the laminectomy bed. Superimposed infection cannot be excluded by MR. * No convincing pathologic enhancement within the thecal sac. * Multilevel degenerative spondylotic changes as described with neuroforaminal narrowing. * Chronic compression fractures of T11 and T12, with postoperative changes at T12 kyphoplasty. Finalized by Jr Aguilar on 09/27/2023 9:56 AM Normal [facility] Provider Orderson 09-26-2023 Provider Orders [id number]#1.00[facility] Provider Orders [id number]#1.00[facility] Rad - Other Radiology Report on 09-26-2023 Rad - Other Radiology Report [id number]#1.00[facility] XR SPINE LUMB BENDING ONLY 2 -3 VWSon 09-24-2023 XR SPINE LUMB BENDING ONLY 2-3 VWS XR SPINE LUMB BENDING ONLY 2-3 VWS CLINICAL HISTORY: Lumbar laminectomy and radiculopathy Comparison: 05/24/2023 Views: 2 view FINDINGS: * Multilevel compression fractures lower thoracic spine and L1. No abnormal motion with flexion and extension views. Advancing degenerative changes L5-S1. IMPRESSION: * No significant change Finalized by Jacinto Lopez MD on 09/24/2023 5:21 PM Normal [facility] Lab - Other Lab Resultson Lab - Other Lab Results [id number]#1.00[facility] Outside Recordson 08-09-2023 Outside Records [id number]#1.00[facility] Outside Recordson 07-27-2023 Outside Records [id number]#1.[facility] [id number]#1.00[facility] Patient Letteron 05-05-2023 Patient Letter [id number]#1.00[facility]on SARS-CoV-2 (COVID-19) RNA PRESTON+probe Ql (Unsp spec) Not detected Normal NOT DETECTED [facility] Comment on above: Result Comment: This test is not yet approved or cleared by the [place] FDA. When there are no FDA-approved or cleared tests available, and other criteria are met, FDA can make tests available under an emergency access mechanism called an Emergency Use Authorization (EUA). The EUA for this test is supported by the Mink Rancher of Health and Human Service's (HHS's) declaration that circumstances exist to justify the emergency use of in vitro diagnostics for the detection and/or diagnosis of the virus that causes COVID-19. This EUA will remain in effect (meaning this test can be used) for the duration of the COVID-19 declaration justifying emergency of IVDs, unless it is terminated or revoked by FDA (after which the test may no longer be used). When diagnostic testing is negative, the possibility of a false negative should be considered in the context of a patient's recent exposures and the presence of clinical signs and symptoms consistent with SARS-CoV-2. Performed By: #### C VDTB #### [facility] [address] [place] [address] Dr. Ciatie Pierce Basic Metabolic Profon 05-27 -2018 (cont.) Normal [facility] Comment on above: Result Comment: Aver age GFR for 50-59 years old: 93 mL/min/1.73sq mChronic Kidney Disease: <60 mL/min/1.73sq mKidney failure: <15 mL/min/1.73sq meGFR calculated using average adult body mass. Additional eGFR calculator available at:http://www.Infoflow/multiple_crcl_2012.htmPerformed at [facility] [address] [place] [address] Performed By: #### C DP, BMP ####[facility] [place] [address] Anion gap 12 mmol/L Normal 9-17 [facility] Comment on above: Performed By: #### C DP, BMP ####[facility] [place] [address] Calcium 9.4 mg/dL Normal 8.6-10.4 [facility] Comment on above: Performed By: #### C DP, BMP ####[address] [place] [address] Chloride 102 mmol/L Normal 98-107 [facility] Comment on above: Performed By: #### C DP, BMP ####[address] [address] CO2 25 mmol/L Normal 20-31 [facility] Comment on above: Performed By: #### C DP, BMP ####[facility] [place] [address] Creatinine 0.80 mg/dL Normal 0.70-1.20 [facility] Comment on above: Performed By: #### C DP, BMP ####[address] [address] eGFR (non-black) mL/min/{1.73_m2} Normal >60 [facility] Comment on above: Performed By: #### C DP, BMP ####[address] [address] Glucose mass conc 91 mg/dL Normal 70-99 [facility] Comment on above: Performed By: #### C DP, BMP ####[address] [address] Potassium molar conc 4.2 mmol/L Normal 3.7-5.3 [facility] Comment on above: Performed By: #### C DP, BMP ####[address] [address] Sodium 139 mmol/L Normal 135-144 [facility] Comment on above: Performed By: #### C DP, BMP ####[address] [address] Urea nitrogen 10 mg/dL Normal 6-20 [facility] Comment on above: Performed By: #### C DP, BMP ####[address] [address] BUN/CRE Ratio NOT REPORTED Normal 9-20 [facility] Comment on above: Performed By: #### C DP, BMP ####[address] [address] Staging: NOT REPORTED Normal [facility] Comment on above: Performed By: #### C DP, BMP ####[address] [address] CBC with Diffon 01-08-2018 Abs. Basophil 0.10 k/uL Normal 0.0-0.2 [facility] Comment on above: Result Comment: Perf ormed at [address] [address] Performed By: #### C DP, BMP ####[facility] [place] [address] Abs.Neutrophil (Seg) 4.10 k/uL Normal 1.3-9.1 [facility] Comment on above: Performed By: #### C DP, BMP ####[address] [address] Basophils/100 WBC Auto (Bld) 1 % Normal 0-2 [facility] Comment on above: Performed By: #### C DP, BMP ####[address] [address] Eosinophils 0.20 10*3/uL Normal 0.0-0.4 [facility] Comment on above: Performed By: #### C DP, BMP ####[address] [address] Eosinophils/100 leukocytes 3 % Normal 0-4 [facility] Comment on above: Performed By: #### C DP, BMP ####[address] [address] Erythrocyte distribution width Auto Ratio (RBC) 13.7 % Normal 11.5-14.9 [facility] Comment on above: Performed By: #### C DP, BMP ####[address] [address] Erythrocytes (RBC) 4.98 10*6/uL Normal 4.5-5.9 [facility] Comment on above: Performed By: #### C DP, BMP ####[address] [address] Hematocrit (HCT) 44.7 % Normal 41-53 [facility] Comment on above: Performed By: #### C DP, BMP ####[facility] [place] [address] Hemoglobin mass conc (Bld) 15.2 g/dL Normal 13.5-17.5 [facility] Comment on above: Performed By: #### C DP, BMP ####[facility] [place] [address] Lymphocytes 1.10 10*3/uL Normal 1.0-4.8 [facility] Comment on above: Performed By: #### C DP, BMP ####[facility] [place] [address] Lymphocytes/100 leukocytes 18 % Low 24-44 [facility] Comment on above: Performed By: #### C DP, BMP ####[facility] [place] [address] MCH 30.6 pg Normal 26-34 [facility] Comment on above: Performed By: #### C DP, BMP ####[facility] [place] [address] MCHC mass conc (RBC) 34.1 g/dL Normal 31-37 [facility] Comment on above: Performed By: #### C DP, BMP ####[facility] [place] [address] MCV 89.7 fL Normal 80-100 [facility] Comment on above: Performed By: #### C DP, BMP ####[facility] [place] [address] Monocytes 0.50 10*3/uL Normal 0.1-1.3 [facility] Comment on above: Performed By: #### C DP, BMP ####[facility] [place] [address] Monocytes/100 leukocytes 8 % High 1-7 [facility] Comment on above: Performed By: #### C DP, BMP ####[facility] [place] [address] Neutrophil (Seg) 70 % High 36-66 [facility] Comment on above: Performed By: #### C DP, BMP ####[address] [address] Platelet mean volume (PMV) 8.2 fL Normal 6.0-12.0 [facility] Comment on above: Performed By: #### C DP, BMP ####[address] [address] Platelets 232 10*3/uL Normal 150-450 [facility] Comment on above: Performed By: #### C DP, BMP ####[address] [address] WBC (Leukocytes) 5.9 10*3/uL Normal 3.5-11.0 [facility] Comment on above: Performed By: #### C DP, BMP ####[address] [address] Auto Diff Performed NOT REPORTED Normal [facility] Comment on above: Performed By: #### C DP, BMP ####[address] [address] Erythrocyte morphology NOT REPORTED Normal [facility] Comment on above: Performed By: #### C DP, BMP ####[address] [address] Erythrocytes (RBC) NOT REPORTED Normal [facility] Comment on above: Performed By: #### C DP, BMP ####[address] [address] Granulocytes/100 WBC (Bld) NOT REPORTED Normal 0.00-0.30 [facility] Comment on above: Performed By: #### C DP, BMP ####[facility] [place] [address] Immature granulocytes #/vol (Bld) NOT REPORTED Normal 0 [facility] Comment on above: Performed By: #### C DP, BMP ####[facility] [place] [address] Platelets NOT REPORTED Normal [facility] Comment on above: Performed By: #### C DP, BMP ####[facility] [place] [address] WBC Morphology NOT REPORTED Normal [facility] Comment on above: Performed By: #### C DP, BMP ####[facility] [place] [address] CT SOFT TISSUE NECK W CONTRA STon 01-08-2018 CT SOFT TISSUE NECK W CONTRAST EXAMINATION:CT OF THE NECK SOFT TISSUE WITH CONTRAST 01/08/2018TECHNIQUE:CT of the neck was performed with the administration of intravenous contrast.Multiplanar reformatted images are provided for review. Dose modulation,iterative reconstruction, and/or weight based adjustment of the mA/kV wasutilized to reduce the radiation dose to as low as reasonably achievable.COMPARISON:None.H ISTORY:ORDERING SYSTEM PROVIDED HISTORY: neck swellingTECHNOLOGIST PROVIDED HISTORY:Ordering Physician Provided Reason for Exam: pt states swelling to rt jawearly this am used bbs to ina the spotAcuity: AcuteType of Exam: InitialFINDINGS:The lung apices are clear and the thyroid gland enhances homogeneously.There is no retropharyngeal fluid collection.The nasopharynx, oropharynx, hypopharynx, larynx, and upper esophagus aregrossly within normal limits.No pathologically enlarged lymph nodes are detected within the neck by CTcriteria. Visualized portions of the tongue are within normal limits.There is a small air-fluid level in the right maxillary antrum.There is asymmetric stranding of fat and edema around the left parotid gland.No radiopaque salivary stones are detected. No rim enhancing fluidcollection is identified.The inflammatory changes and edema extend caudally into the ipsilateralsubmandibular space.There are degenerative changes of the spine.IMPRESSION: Acute left-sided parotitis, of uncertain etiology.Small air-fluid level in the right maxillary sinus which could reflect acutesinusitis.Interpreted by:GERTRUDE Suggsigned by:Jass Hardy MD01/08/18inal result Normal [facility] Vital Signs Date Time Vital Sign Value Performing Clinician Faci lity 10-04-2023 12:41-0500 Body height 182.9 cm Panfilo Childress MD Work Phone: [facility] 10-04-2023 12:41-0500 Body mass index (BMI) [Ratio] 27.12 kg/m2 Panfilo Childress MD Work Phone: [facility] 10-04-2023 12:41-0500 Body weight 90.72 kg Panfilo Childress MD Work Phone: [facility] 10-04-2023 12:41-0500 Diastolic blood pressure 92 mm[Hg] Panfilo Childress MD Work Phone: [facility] 10-04-2023 12:41-0500 Heart rate 87 /min Panfilo Childress MD Work Phone: [facility] 10-04-2023 12:41-0500 Systolic blood pressure 148 mm[Hg] Panfilo Childress MD Work Phone: [facility] 09-06-2023 14:48-0500 Body height 182.9 cm 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 APRN-SHIP ENGINEER Work Phone: [facility] 09-06-2023 14:48-0500 Body mass index (BMI) [Ratio] 27.8 kg/m2 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 APRN-SHIP ENGINEER Work Phone: [facility] 09-06-2023 14:48-0500 Body weight 92.99 kg 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 APRN-SHIP ENGINEER Work Phone: [facility] 09-06-2023 14:48-0500 Diastolic blood pressure 95 mm[Hg] 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 INSTRUMENTATION INSTRUCTOR-SHIP ENGINEER Work Phone: [facility] 09-06-2023 14:48-0500 Heart rate 76 /min 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 INSTRUMENTATION INSTRUCTOR-SHIP ENGINEER Work Phone: [facility] 09-06-2023 14:48-0500 Systolic blood pressure 140 mm[Hg] 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 INSTRUMENTATION INSTRUCTOR-SHIP ENGINEER Work Phone: [facility] 02-23-2023 15:30-0400 Body height 185.42 cm Melissa Adama [facility] 02-23-2023 15:30-0400 Body mass index (BMI) [Ratio] 26.91 kg/m2 Melissa Adama [facility] 02-23-2023 15:30-0400 Body weight 92.53 kg Melissa Adama [facility] Other 02-23-2023 15:30-0400 Diastolic blood pressure 75 mm[Hg] Melissa Adama [facility] Other 02-23-2023 15:30-0400 SaO2% (BldA) [Mass fraction] 98 % Melissa Adama [facility] 02-23-2023 15:30-0400 Systolic blood pressure 130 mm[Hg] Melissa Adama [facility] 09-08-2022 15:00-0500 Body height 185.42 cm Tai Jensen [facility] 09-08-2022 15:00-0500 Body mass index (BMI) [Ratio] 27.37 kg/m2 Tai Boschno [facility] 09-08-2022 15:00-0500 Body temperature 97.3 [degF] Tai Boschno [facility] 09-08-2022 15:00-0500 Body weight 94.12 kg Lukerickie Boschno [facility] 09-08-2022 15:00-0500 Diastolic blood pressure 80 mm[Hg] Tai Boschno [facility] 09-08-2022 15:00-0500 SaO2% (BldA) [Mass fraction] 97 % Tai Boschno [facility] Other 09-08-2022 15:00-0500 Systolic blood pressure 126 mm[Hg] Tai Boschno [facility] Other Encounters Encounter Date Encounter Type Care Provider Facility Start: 02-08-2024 Chart abstracting Unk Pcp (Hist) Juan Miguel veras Start: 12-16-2023 End: 12-17-2023 ambulatory Jacinto Olmos MD Facility:[facility] Start: 12-02-2023 ambulatory LEON MUNOZ Facilit y:[facility] Start: 12-01-2023 End: 12-02-2023 ambulatory Neris Gutierres INSTRUMENTATION INSTRUCTOR-SHIP ENGINEER Facility:[facility] Start: 11-25-2023 End: 11-25-2023 ambulatory Neris Mcfarlane Chula Facility:[facility] Start: 11-04-2023 End: 11-05-2023 ambulatory Jacinto Olmos MD Facility:[facility] Start: 11-03-2023 End: 11-03-2023 ambulatory LEON MUNOZ Facility:[facility] Start: 10-31-2023 End: 10-31-2023 ambulatory MICHEAL AWAN Not Available Start: 10-27-2023 End: 10-28-2023 ambulatory Neris Gutierres INSTRUMENTATION INSTRUCTOR-SHIP ENGINEER Facility:[facility] Start: 10-21-2023 End: 10-22-2023 ambulatory Jacinto Olmos MD Facility:[facility] Start: 10-20-2023 End: 10-20-2023 ambulatory LEON Roddy RINGOES Facility:[facility] Start: 10-17-2023 End: 10-18-2023 ambulatory Neris Werner [facility] Start: 10-05-2023 End: 10-05-2023 ambulatory LEON Roddy MUNOZ Facility:[facility] Start: 10-04-2023 End: 10-04-2023 ambulatory [facility] Start: 10-04-2023 End: 10-04-2023 Postop follow up visit related to original px Panfilo Childress MD Work Phone: [facility] Comment on above: Status post lumbar l aminectomy (Primary Dx); Weakness of left lower extremity Start: 09-23-2023 End: 09-24-2023 ambulatory [facility] Start: 09-23-2023 End: 09-23-2023 ambulatory [facility] Start: 09-12-2023 ambulatory LEON TAMMY Facilit y:[facility] Start: 09-06-2023 ambulatory BERNARD SIMEON [facility] Start: 09-06-2023 End: 09-06-2023 Postop follow up visit related to original px Wendy [facility] Comment on above: Status post lumbar l aminectomy (Primary Dx); Lumbar radiculopathy; Weakness of left lower extremity; Sensory deficit, left Start: 07-19-2023 End: 07-19-2023 ambulatory Bernard Simeon MD Facility:[facility] Start: 05-03-2023 End: 05-03-2023 ambulatory Bernard Simeon MD Facility:[facility] Start: 02-23-2023 End: 02-23-2023 ambulatory Melissa Adama Facility:[facility] Start: 02-23-2023 End: 02-23-2023 Patient encounter procedure MD Bernard Simeon Work Phone: [facility] Work Phone: Start: 02-23-2023 End: 02-23-2023 ambulatory MD Bernard Simeon Work Phone: [facility] Work Phone: Start: 02-23-2023 Office outpatient visit 10 minutes Melissa Adama [facility] Start: 09-15-2022 End: 09-15-2022 ambulatory Bernard Simeon Facility:[facility] Start: 09-08-2022 End: 09-08-2022 ambulatory Bernard Simeon Facility:[facility] Start: 09-08-2022 Office outpatient ne w 30 minutes Tai Jensen [facility] Start: 09-08-2022 End: 09-08-2022 ambulatory MD Bernard Simeon Work Phone: [facility] Work Phone: Start: 09-08-2022 End: 09-08-2022 Patient encounter procedure MD Bernard Simeon Work Phone: [facility] Work Phone: Start: 08-19-2021 End: 08-19-[address] DOCTOR JACOBO Facility: Start: 09-26-2020 Patient encounter status 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 INSTRUMENTATION INSTRUCTOR-SHIP ENGINEER Work Phone: [facility] Work Phone: Start: 01-08-2018 End: 01-08-2018 Emergency department patient visit BERNARD BLANCO [facility] Procedures Date Procedure Procedure Detail Performing Clinician Start: 09-06-2023 Follow-up visit Follow-up JAIR PADRON Start: 07-25-2023 Adult depression screening assessment 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 INSTRUMENTATION INSTRUCTOR-SHIP ENGINEER Work Phone: Start: 01-08-2018 Ct soft tissue neck w/contrast material BERNARD SIMEON Start: 01-08-2018 Basic metabolic pane l calcium total BERNARD SIMEON Start: 01-08-2018 Blood count complete auto&auto difrntl wbc BERNARD SIMEON Start: 01-08-2018 INSERT PERIPHERAL IV DA JOSE M SIMEON Plan of Treatment Date Care Activity Detail Author Start: 10-06-2024 Tobacco Screening Tobacco Screening [facility] Start: 10-04-2024 Adult BMI Screening Adult BMI Screen ing [facility] Start: 09-06-2024 Adult BMI Screening Adult BMI Screen ing [facility] Start: 09-06-2024 Tobacco Screening Tobacco Screening [facility] Start: 07-25-2024 Depression Screening Depression Scre ening [facility] Start: 03-17-2024 DTaP,Tdap and Td Vac cines (2 - Td or Tdap) DTaP,Tdap and Td Vaccines (2 - Td or Tdap) [facility] Start: 09-23-2023 End: 09-23-2023 Patient encounter procedure 09/23/2023 9:00 PM EST Appointment [facility] [address] [place] [id number] [facility] Start: 09-06-2023 End: 09-06-2024 XR Lumbar spine Views AP W right bending and W left bending X-ray spine lumbar flexion and extension only 2 to 3 views Imaging Routine Status post lumbar laminectomy Lumbar radiculopathy Expected: 09/06/2023, Expires: 09/06/2024 [facility] Comment on above: Expected: 09/06/2023 , Expires: 09/06/2024 Start: 04-15-2023 COVID-19 Vaccine ( season) COVID-19 Vaccine ( season) [facility] Start: 04-15-2023 Influenza vaccination Influenza Vacc ine [facility] Start: 2016 Administration of varicella zoster vaccine Zoster (Shingles) Vaccine (1 of 2) [facility] Start: 1984 Adult BMI Follow Up Plan Adult BMI Follow Up Plan [facility] End: 10-04-2024 [facility] Neurology Routine Status post lumbar laminectomy Weakness of left lower extremity 1 Occurrences starting 10/04/2023 until 10/04/2024 [facility] Work Phone: Comment on above: 1 Occurrences starti ng 10/04/2023 until 10/04/2024 End: 09-05-2024 MR Lumbar spine WO and W contrast IV MR lumbar spine with and without contrast Imaging Routine Status post lumbar laminectomy Lumbar radiculopathy 1 Occurrences starting 09/06/2023 until 09/05/2024 [facility] Work Phone: Comment on above: 1 Occurrences starti ng 09/06/2023 until 09/05/2024 Immunizations Immunization Date Immunization Notes Care Provider Fa jonny 06-02-2021 influenza virus vaccine, unspecified formulation 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 INSTRUMENTATION INSTRUCTOR-SHIP ENGINEER [facility] P[facility] Date Payer Category Payer Self-pay [id number] 2015 Private Health Insurance [id number] 2015 Private Health Insurance [id number] 1966 Unknown [id number] 2.16.84 0.1.451259.3.579.2.593 1966 Unknown [id number] 2.16.8 40.1.647353.3.579.2.1286 1966 Unknown [id number] 2.16.8 40.1.440550.3.579.2.1286 1966 Unknown [id number] 2.16.8 40.1.341692.3.579.2.1286 1966 Unknown [id number] 2.16.8 40.1.775795.3.579.2.1285 1966 Unknown [id number] 2.16.84 0.1.808292.3.579.2.1258 1966 Unknown [id number] 2.16. 840.1.417492.3.579.2. 1966 Unknown [id number] 2.16. 840.1.693299.3.579.2. 1966 Unknown [id number] 2.16. 840.1.042141.3.579.2. 1966 Unknown [id number] 2.16. 840.1.960487.3.579.2. 1966 Unknown [id number] 2.16. 840.1.521871.3.579.2. 1966 Unknown [id number] 2.16. 840.1.569104.3.579.2. 1966 Unknown [id number] 2.16.8 40.1.194664.3.579.2. 1966 Unknown [id number] 2.16.8 40.1.529092.3.579.2. 1966 Unknown [id number] 2.16.8 40.1.686874.3.579.2. 1966 Unknown [id number] 2.16.8 40.1.939854.3.579.2. 1966 Unknown [id number] 2.16.8 40.1.246786.3.579.2. 1966 Unknown [id number] 2.16.8 40.1.628200.3.579.2. 1966 Unknown [id number] 2.16.8 40.1.172993.3.579.2. 1966 Unknown [id number] 2.16.8 40.1.730239.3.579.2. 1966 Unknown [id number] 2.16.8 40.1.182650.3.579.2. 1966 Unknown [id number] 2.16.8 40.1.040526.3.579.2. 1966 Unknown [id number] 2.16.8 40.1.245216.3.579.2. 1966 Unknown [id number] 2.16.8 40.1.139175.3.579.2. 1966 Unknown [id number] 2.16.8 [id number] 1965 Unknown [id number] 2.16.8 [id number] 1965 Unknown [id number] 2.16.8 [id number] 1958 Private Health Insurance [id number] Unknown [id number] 2.16.8 [id number] Unknown [id number] 2.16.8 [id number] Unknown [id number] 2.16.8 [id number] Social History Date Type Detail Facility Tobacco smoking stat [facility] Unknown if ever smoked [facility] Work Phone: Start: 1965 Sex Assigned At Male [facility] Start: 09-08-2020 End: 07-25-2023 Sex Assigned At [facility] Start: 09-26-2020 [facility] Start: 08-15-1978 End: 08-15-1997 History of tobacco use Current smoker [facility] Start: 08-15-1978 End: 08-15-1997 History of tobacco use Cigarette Smoker [facility] Start: 09-08-2020 End: 09-26-2020 Cigarettes smoked current (pack per day) - Reported 1 [facility] Start: 09-26-2020 Tobacco use and exposure Former smokeless tobacco user [facility] End: 08-15-2016 History of tobacco use User of smokeless tobacco [facility] Start: 09-06-2023 End: 10-06-2023 Alcohol intake Ex-drinker (finding) [facility] How often to you hav e a drink containing alcohol? Never [facility] How many standard drinks containing alcohol do you have on a typical day? Patient does not drink [facility] Start: 09-26-2020 Alcohol Comment states alcohol ic quit 1990 [facility] Start: 1965 Sex Assigned At Not on file [facility] Tobacco smoking stat [facility] Tobacco smoking consumption unknown [facility] Medical Equipment Procedure Code Equipment Code Equipment Origin al Text Equipment Identifier Dates Patch Dura 1x1in Drmtrx-[place] + Clgn Rgnrt Membr Strl [facility] [id number] - [id number] Start: 07-25-2023 Clinical Notes 09-08-2022 to 02-10-2024 Ciera Hamilton PA-C - 02/10/2024 4:40 PM Melissa Ellis - 02/08/2024 8:07 AM Antolin Childress MD - 10/04/2023 12:20 PM ESTPatient Manuel Padron APRN-SHIP ENGINEER - 09/06/2023 3:00 PM EST Note Date & Type Note Facility 02-10-2024 Note HNO ID: [id number] Author: CIREA HAMILTON PA-C Service: ? Author Type: Physician Operating Systems Specialist Type: Progress Notes Filed: 02/10/2024 16:52 Note Text: Per Triage: Enrrique Madera is a 58 year old male that requests evaluation of spine. Per review, they have symptoms of back pain, leg pain. Difficulty walking, numbness,weakness As per triage intact Lbp - feet - weakness/tingly AND numbness in legs, unable to urinate regularly (hard to go), laying flat on back relieves some pain but doesn't resolve the numbness/weakness. Sitting/standing/walking/stairs - can't do very long w/o change position AND walking/stairs hard due to weakness, feels like something collapsed , pain is throbbing AND turns sharp with activity increase. Request: 1st available Referring provider: Hany Hathaway MD Patient out of state: no 2nd opinion: no Prior spine surgery: yes 07/2023 - [facility] - [address] [facility], [place] [address] - scraping of arthritis AND repair 2 herinations CMT: PT Gabapentin Diclofenac Tylenol Studies (Reports unless indicated) Lumbar xray report 09/23/23: Multilevel compression fractures lower thoracic spine and L1. No abnormal motion with flexion and extension views. Advancing degenerative changes L5-S1. MRI lumbar spine report 09/23/23: Extensive postoperative changes in the lower lumbar spine with associated laminectomy changes at L3-L5. 2.4 x 1.5 x 6.6 cm fluid collection within the laminectomy bed associated with robust, peripheral enhancement. Sterility is not well assessed. Additional signal abnormality is noted within the paraspinal musculature likely compatible expected posttreatment changes. No convincing enhancement is seen within the thecal sac, distal cord or cauda equina nerve roots. There are kyphoplasty changes about the chronic T12 compression fracture. Chronic compression of T11 is also noted. No evidence of acute vertebral body height loss. Grade 1 retrolisthesis of L5 on S1. Moderate multilevel degenerative changes most significant at L5-S1 and to a lesser extent L2-L5. L1-L2: Mild left greater than right facet arthropathy intravenous to minimal bilateral neuroforaminal narrowing. No significant spinal canal narrowing. L2-L3: Mild diffuse disc bulge with asymmetric left foraminal/extraforaminal components, decompressive laminectomy without significant spinal canal narrowing. Mild bilateral neuroforaminal narrowing. L3-L4: Mild diffuse disc bulge, mild facet arthropathy with decompressive left hemilaminectomy. Mild spinal canal narrowing with uzcf-xx-gtwgdnqv right and moderate left neuroforaminal narrowing. L4-L5: Left paracentral disc protrusion, mild facet arthropathy and laminectomy changes without significant spinal canal narrowing. Minimal narrowing of the left subarticular recess. Renc-pr-ltnxdyzb right and rdllsbta-sd-ubzohv left neuroforaminal narrowing. L5-S1: Laminectomy changes and facet arthropathy. No spinal canal narrowing. Fmab-mz-zkxnrjxt right and moderate left neuroforaminal narrowing. Disposition: Based on triage, recommend patient be scheduled with surgical RITCHIE for eval. Unsure if surgical. If VV, please advise pt to send or upload relevant outside images prior to appt so they will be available for review during the appt If office visit, please advise pt to hand carry relevant images on CD to the appt so they can be reviewed during the appt Ciera Hamilton PA-C [facility] 02-10-2024 History of Present illness Narrative Per Triage: Enrrique Madera is a 58 year old male that requests evaluation of spine. Per review, they have symptoms of back pain, leg pain. Difficulty walking, numbness,weakness As per triage intact Lbp - feet - weakness/tingly & numbness in legs, unable to urinate regularly (hard to go), laying flat on back relieves some pain but doesn't resolve the numbness/weakness. Sitting/standing/walking/stairs - can't do very long w/o change position & walking/stairs hard due to weakness, feels like something collapsed , pain is throbbing & turns sharp with activity increase. Request: 1st available Referring provider: Hany Hathaway MD Patient out of state: no 2nd opinion: no Prior spine surgery: yes 07/2023 - [facility] - [address], [place] [address] - scraping of arthritis & repair 2 herinations CMT: PT Gabapentin Diclofenac Tylenol Studies (Reports unless indicated) Lumbar xray report 09/23/23: Multilevel compression fractures lower thoracic spine and L1. No abnormal motion with flexion and extension views. Advancing degenerative changes L5-S1. MRI lumbar spine report 09/23/23: Extensive postoperative changes in the lower lumbar spine with associated laminectomy changes at L3-L5. 2.4 x 1.5 x 6.6 cm fluid collection within the laminectomy bed associated with robust, peripheral enhancement. Sterility is not well assessed. Additional signal abnormality is noted within the paraspinal musculature likely compatible expected posttreatment changes. No convincing enhancement is seen within the thecal sac, distal cord or cauda equina nerve roots. There are kyphoplasty changes about the chronic T12 compression fracture. Chronic compression of T11 is also noted. No evidence of acute vertebral body height loss. Grade 1 retrolisthesis of L5 on S1. Moderate multilevel degenerative changes most significant at L5-S1 and to a lesser extent L2-L5. L1-L2: Mild left greater than right facet arthropathy intravenous to minimal bilateral neuroforaminal narrowing. No significant spinal canal narrowing. L2-L3: Mild diffuse disc bulge with asymmetric left foraminal/extraforaminal components, decompressive laminectomy without significant spinal canal narrowing. Mild bilateral neuroforaminal narrowing. L3-L4: Mild diffuse disc bulge, mild facet arthropathy with decompressive left hemilaminectomy. Mild spinal canal narrowing with apaq-ie-ouyjjulv right and moderate left neuroforaminal narrowing. L4-L5: Left paracentral disc protrusion, mild facet arthropathy and laminectomy changes without significant spinal canal narrowing. Minimal narrowing of the left subarticular recess. Exxv-va-xwtehvjy right and grnyakzg-mb-ndowmi left neuroforaminal narrowing. L5-S1: Laminectomy changes and facet arthropathy. No spinal canal narrowing. Znfx-xc-tntpyiss right and moderate left neuroforaminal narrowing. Disposition: Based on triage, recommend patient be scheduled with surgical RITCHIE for eval. Unsure if surgical. If VV, please advise pt to send or upload relevant outside images prior to appt so they will be available for review during the appt If office visit, please advise pt to hand carry relevant images on CD to the appt so they can be reviewed during the appt Ciera Hamilton PA-C Patient name: Enrrique Madera Are you being referred by a [facility] Provider or Pain Management Provider at [facility]? No If answer is YES please schedule directly with surgeon, triage does not need to be completed. Is this a self-referral No If not, who is the Referring Provider Hany Hathaway MD Is this a 2nd opinion from another spine surgeon? No Were you offered surgery? No MRI/CT/myelogram within 12 months? Yes If NO , please refer to medical spine or PCP to complete above imaging, triage does not need to be completed If YES, please ask for the name/address of the facility where the MRI/CT/myelogram was completed: [facility] - [address] [facility], [place] [address] MRI/CT/myelogram viewable in Epic: No If not, please provide [phone] to fax in imaging reports for review. Also, please inform patient to hand carry imaging disc to appointment. XR (spine) within 12 months: Yes If YES, please ask for the name/address of the facility where the XR was completed: [facility] - [address] [place] [address] Dr. Purvis's patients: Have you had previous EMG/Nerve Conduction Study, Ultrasound, or MRI for these same symptoms? If YES, please ask for the name/address of the facility where they were completed: Requested provider (First and Last name): sarah beth Black, Are you interested in a virtual visit if offered? Yes 1. Where are you having symptoms related to this visit? Lbp - feet - weakness/tingly & numbness in legs, unable to urinate regularly (hard to go), laying flat on back relieves some pain but doesn't resolve the numbness/weakness. Sitting/standing/walking/stairs - can't do very long w/o change position & walking/stairs hard due to weakness, feels like something collapsed , pain is throbbing & turns sharp with activity increase. Back pain Yes Leg pain Yes Arm pain No Neck pain No 2. Are you having any of the following symptoms: Difficulty walking Yes Numbness Yes Weakness Yes Trouble using your hands? No 3. Have you had any injections or physical therapy in the last 12 months? Yes If YES then please ask for the name/address of the facility where the injections and/or [place] [address] [address] [address] Have you tried any other kinds of non-surgical treatments in the last 12 months? (For example: NSAIDS, muscle relaxants, analgesics, oral steroids, Chiropractor, Acupuncture): gabapetin, diclofinaic, tylenol, 4. Are you currently taking daily prescribed narcotic medications for your current symptoms (For example Oxycodone, Hydrocodone, Tramadol, Morphine, Other)? No 5. Have you had previous spinal surgery for this same symptoms? Yes If YES please ask for the name of facility/address of where the surgery was completed: 07/2023 - [facility] - [address] [place] [address] - scraping of arthritis & repair 2 herinations Additional Comments [phone] documented in this encounter [facility] 02-08-2024 Note HNO ID: [id number] Author: ?, ?, ? Service: ? Author Type: ? Type: Progress Notes Filed: 02/10/2024 16:52 Note Text: Patient name: Enrrique Madera Are you being referred by a [facility] Spine Health Provider or Pain Management Provider at [facility]? No If answer is YES please schedule directly with surgeon, triage does not need to be completed. Is this a self-referral No If not, who is the Referring Provider Hany Hathaway MD Is this a 2nd opinion from another spine surgeon? No Were you offered surgery? No MRI/CT/myelogram within 12 months? Yes If NO , please refer to medical spine or PCP to complete above imaging, triage does not need to be completed If YES,? please ask for the name/address of the facility where the MRI/CT/myelogram was completed: [email or web address] [place] [id number] MRI/CT/myelogram viewable in Epic: No If not, please provide [phone] to fax in imaging reports for review. Also, please inform patient to hand carry imaging disc to appointment. XR (spine) within 12 months: Yes If YES,? please ask for the name/address of the facility where the XR was completed: [email or web address] [place] [address] Dr. Purvis's patients: Have you had previous EMG/Nerve Conduction Study, Ultrasound, or MRI for these same symptoms? If YES,? please ask for the name/address of the facility where they were completed: Requested provider (First and Last name): sarah beth Black, Are you interested in a virtual visit if offered? Yes 1. Where are you having symptoms related to this visit? Lbp - feet - weakness/tingly AND numbness in legs, unable to urinate regularly (hard to go), laying flat on back relieves some pain but doesn't resolve the numbness/weakness. Sitting/standing/walking/stairs - can't do very long w/o change position AND walking/stairs hard due to weakness, feels like something collapsed , pain is throbbing AND turns sharp with activity increase. Back pain Yes Leg pain Yes Arm pain No Neck pain No 2. Are you having any of the following symptoms: Difficulty walking Yes Numbness Yes Weakness Yes Trouble using your hands? No 3. Have you had any injections or physical therapy in the last 12 months? Yes If YES then please ask for the name/address of the facility where the injections and/or physical therapy was completed [address] [address] Have you tried any other kinds of non-surgical treatments in the last 12 months? (For example: NSAIDS, muscle relaxants, analgesics, oral steroids, Chiropractor, Acupuncture): gabapetin, diclofinaic, tylenol, 4. Are you currently taking daily prescribed narcotic medications for your current symptoms (For example Oxycodone, Hydrocodone, Tramadol, Morphine, Other)? No 5. Have you had previous spinal surgery for this same symptoms? Yes If YES? please ask for the name of facility/address of where the surgery was completed: 07/2023 - [facility] - [address] [place] [address] - scraping of arthritis AND repair 2 herinations Additional Comments [phone] [facility] 01-24-2024 Note Entered by MICHAEL MNUOZ DO on January 24, 2024 07:33:43 EDT From: LEON MUNOZ DO To: [facility] Sent: 01/24/2024 07:33:43 EDT Subject: Medication Management Submitted: Complete:buPROPion (BuPROPion (Eqv-Wellbutrin SR) 150 mg/12 hours oral tablet, extended release) Signed by LEON MUNOZ DO 01/24/2024 07:33:00 EDT Submitted: Complete:FLUoxetine (FLUoxetine 20 mg oral capsule) Signed by LEON MUNOZ DO 01/24/2024 07:33:00 EDT Approved with modifications: FLUoxetine (FLUoxetine HCl 20 MG Oral Capsule) Take 2 capsules by mouth once daily Qty: 180 cap(s) Days Supply: 90 Refills: 0 Substitutions Allowed Route To Pharmacy - [place] [address] Approved with modifications: buPROPion (buPROPion HCl ER (SR) 150 MG Oral Tablet Extended Release 12 Hour) Take 1 tablet by mouth twice daily Qty: 180 tab(s) Days Supply: 90 Refills: 0 Substitutions Allowed Route To Pharmacy - [place] [address] From: [place] [address] To: LEON MUNOZ DO Sent: January 24, 2024 4:42:48 AM CDT Subject: Medication Management Due: January 25, 2024 12:08:15 AM CDT On Hold Pending Signature Dispensed Drug: FLUoxetine (FLUoxetine 20 mg oral capsule), Take 2 capsules by mouth once daily Quantity: 180 cap(s) Days Supply: 90 Refills: 0 Substitutions Allowed Notes from Pharmacy: On Hold Pending Signature Dispensed Drug: buPROPion (BuPROPion (Eqv-Wellbutrin SR) 150 mg/12 hours oral tablet, extended release), Take 1 tablet by mouth twice daily Quantity: 180 tab(s) Days Supply: 90 Refills: 0 Substitutions Allowed Notes from Pharmacy: [facility] 12-19-2023 Note [id number] [facility] 12-19-2023 Note Entered by MICHAEL MUNOZ DO on December 19, 2023 07:28:36 EDT From: LEON MUNOZ DO To: [place] [id number] Sent: 12/19/2023 07:28:36 EDT Subject: Medication Management Submitted: Complete:sildenafil (sildenafil 20 mg oral tablet) Signed by LEON MUNOZ DO 12/19/2023 07:28:00 EDT Approved with modifications: sildenafil (Sildenafil Citrate 20 MG Oral Tablet) TAKE 2 TO 3 TABLETS BY MOUTH ONCE DAILY NEEDED Qty: 90 tab(s) Days Supply: 30 Refills: 1 Substitutions Allowed Route To Pharmacy - [facility] From: [facility] To: LEON MUNOZ DO Sent: December 19, 2023 4:41:45 AM CDT Subject: Medication Management Due: December 20, 2023 12:08:31 AM CDT On Hold Pending Signature Dispensed Drug: sildenafil (sildenafil 20 mg oral tablet), TAKE 2 TO 3 TABLETS BY MOUTH ONCE DAILY NEEDED Quantity: 90 tab(s) Days Supply: 30 Refills: 0 Substitutions Allowed Notes from Pharmacy: [facility] 12-16-2023 Note [facility] SURGERY Clinical Discharge Summary PERSON INFORMATION Name ENRRIQUE MADERA Age 58 Years 1965 Sex MALE Language Pakistani PCP LEON MUNOZ DO Marital Status Med Service Pain Management Surgery Acct# Arrival 12/16/2023 06:24:10 Visit Reason LUMBOSACRAL SPONDYLOSIS Acuity LOS 013 17:20 Address: [address] [place] [address] Comment: PROVIDER INFORMATION VITALS INFORMATION Vital Sign Triage Latest Temp Oral Temp Temporal Temp Intravascular Temp Axillary Temp Rectal 02 Sat 94 % 94 % Respiratory Rate Peripheral Pulse Rate Apical Heart Rate Blood Pressure / 93 mmHg / 93 mmHg Comment: MEDICAL INFORMATION Allergy Info: No known allergies Prescriptions Given: buPROPion (BuPROPion (Eqv-Wellbutrin SR) 150 mg/12 hours oral tablet, extended release) 1 tab(s) Oral (given by mouth) 2 times a day (scheduled). Refills: 1. FLUoxetine (FLUoxetine 20 mg oral capsule) 2 cap(s) Oral (given by mouth) every day. Refills: 1. gabapentin (gabapentin 600 mg oral tablet) 1 tab(s) Oral (given by mouth) 4 times a day for 30 Days. Refills: 0. hydrochlorothiazide-lisinopril (hydrochlorothiazide-lisinopril 25 mg-20 mg oral tablet) 1 tab(s) Oral (given by mouth) every day. Refills: 5. sildenafil (sildenafil 20 mg oral tablet) 2 TO 3 TABLETS Oral (given by mouth) every day as needed. Refills: 0. Medication List: Medications to Continue That Have Not Changed Other Medications buPROPion (BuPROPion (Eqv-Wellbutrin SR) 150 mg/12 hours oral tablet, extended release) 1 tab(s) Oral (given by mouth) 2 times a day (scheduled). Refills: 1. FLUoxetine (FLUoxetine 20 mg oral capsule) 2 cap(s) Oral (given by mouth) every day. Refills: 1. gabapentin (gabapentin 600 mg oral tablet) 1 tab(s) Oral (given by mouth) 4 times a day for 30 Days. Refills: 0. hydrochlorothiazide-lisinopril (hydrochlorothiazide-lisinopril 25 mg-20 mg oral tablet) 1 tab(s) Oral (given by mouth) every day. Refills: 5. sildenafil (sildenafil 20 mg oral tablet) 2 TO 3 TABLETS Oral (given by mouth) every day as needed. Refills: 0. Medications to Continue That Have Not Changed Other Medications buPROPion (BuPROPion (Eqv-Wellbutrin SR) 150 mg/12 hours oral tablet, extended release) 1 tab(s) Oral (given by mouth) 2 times a day (scheduled). Refills: 1. FLUoxetine (FLUoxetine 20 mg oral capsule) 2 cap(s) Oral (given by mouth) every day. Refills: 1. gabapentin (gabapentin 600 mg oral tablet) 1 tab(s) Oral (given by mouth) 4 times a day for 30 Days. Refills: 0. hydrochlorothiazide-lisinopril (hydrochlorothiazide-lisinopril 25 mg-20 mg oral tablet) 1 tab(s) Oral (given by mouth) every day. Refills: 5. sildenafil (sildenafil 20 mg oral tablet) 2 TO 3 TABLETS Oral (given by mouth) every day as needed. Refills: 0. Medications to Continue That Have Not Changed Other Medications buPROPion (BuPROPion (Eqv-Wellbutrin SR) 150 mg/12 hours oral tablet, extended release) 1 tab(s) Oral (given by mouth) 2 times a day (scheduled). Refills: 1. FLUoxetine (FLUoxetine 20 mg oral capsule) 2 cap(s) Oral (given by mouth) every day. Refills: 1. gabapentin (gabapentin 600 mg oral tablet) 1 tab(s) Oral (given by mouth) 4 times a day for 30 Days. Refills: 0. hydrochlorothiazide-lisinopril (hydrochlorothiazide-lisinopril 25 mg-20 mg oral tablet) 1 tab(s) Oral (given by mouth) every day. Refills: 5. sildenafil (sildenafil 20 mg oral tablet) 2 TO 3 TABLETS Oral (given by mouth) every day as needed. Refills: 0. Comment: Lab and Radiology Results Laboratory or Other Results This Visit (last charted value for your 12/16/2023 visit) No Laboratory or Other Results This Visit DIET & ACTIVITY Patient Activity Level: Patient Diet: Patient Activity Restrictions: DISCHARGE INFORMATION Discharge Disposition: Discharge Location: DEPART REASON INCOMPLETE INFORMATION PATIENT EDUCATION INFORMATION Instructions: Follow up: Type Location Start Finish State Secured Appointment Type Secured Location 01/26/2024 9:30 AM 01/26/2024 9:40 AM Confirmed Secured Appointment Type Secured Location 04/26/2024 9:00 AM 04/26/2024 9:15 AM Confirmed DIAGNOSIS Comment: PHYS DOC NOTES [facility] 12-15-2023 Note [id number] The history of present illness has been reviewed. There are no changes document. [Electronically Signed on: 12/16/2023 06:56 EDT] JACINTO OLMOS MD [Verified on: 12/16/2023 06:56 EDT] JACINTO OLMOS MD [Transcribed on: 12/15/2023 12:08 EDT] JOSE [facility] 11-19-2023 Note Entered by MICHAEL MUNOZ DO on November 19, 2023 08:22:21 EDT From: LEON MUNOZ DO To: [place] [id number] Sent: 11/19/2023 08:22:21 EDT Subject: Medication Management Submitted: Complete:sildenafil (sildenafil 20 mg oral tablet) Signed by LEON MUNOZ DO 11/19/2023 08:22:00 EDT Approved with modifications: sildenafil (Sildenafil Citrate 20 MG Oral Tablet) TAKE 2 TO 3 TABLETS BY MOUTH ONCE DAILY NEEDED Qty: 90 tab(s) Days Supply: 30 Refills: 0 Substitutions Allowed Route To Pharmacy - [place] [address] From: [place] [address] To: LEON MUNOZ DO Sent: November 18, 2023 4:41:43 AM CDT Subject: Medication Management Due: November 19, 2023 12:14:39 AM CDT On Hold Pending Signature Dispensed Drug: sildenafil (sildenafil 20 mg oral tablet), TAKE 2 TO 3 TABLETS BY MOUTH ONCE DAILY NEEDED Quantity: 90 tab(s) Days Supply: 30 Refills: 0 Substitutions Allowed Notes from Pharmacy: [facility] 11-07-2023 Note [id number] [facility] 11-04-2023 Note [facility] SURGERY Clinical Discharge Summary PERSON INFORMATION Name ENRRIQUE MADERA Age 57 Years 1965 Sex MALE Language Pakistani PCP LEON MUNOZ DO Marital Status Med Service Pain Management Surgery Acct# Arrival 11/04/2023 10:51:46 Visit Reason LUMBOSACRAL SPONDYLOSIS Acuity LOS 007 02:07 Address: [address] [place] [id number] Comment: PROVIDER INFORMATION VITALS INFORMATION Vital Sign Triage Latest Temp Oral Temp Temporal Temp Intravascular Temp Axillary Temp Rectal 02 Sat 96 % 96 % Respiratory Rate Peripheral Pulse Rate Apical Heart Rate Blood Pressure / 97 mmHg / 94 mmHg Comment: MEDICAL INFORMATION Allergy Info: No known allergies Prescriptions Given: buPROPion (BuPROPion (Eqv-Wellbutrin SR) 150 mg/12 hours oral tablet, extended release) 1 tab(s) Oral (given by mouth) 2 times a day (scheduled). Refills: 1. FLUoxetine (FLUoxetine 20 mg oral capsule) 2 cap(s) Oral (given by mouth) every day. Refills: 1. gabapentin (gabapentin 600 mg oral tablet) 1 tab(s) Oral (given by mouth) 4 times a day. TAKE 1 TABLET BY MOUTH THREE TIMES DAILY. Refills: 0. hydrochlorothiazide-lisinopril (hydrochlorothiazide-lisinopril 25 mg-20 mg oral tablet) 1 tab(s) Oral (given by mouth) every day. Refills: 5. sildenafil (sildenafil 20 mg oral tablet) TAKE TWO TO THREE TABLETS BY MOUTH DAILY NEEDED. Refills: 3. Medication List: Medications to Continue That Have Not Changed Other Medications buPROPion (BuPROPion (Eqv-Wellbutrin SR) 150 mg/12 hours oral tablet, extended release) 1 tab(s) Oral (given by mouth) 2 times a day (scheduled). Refills: 1. FLUoxetine (FLUoxetine 20 mg oral capsule) 2 cap(s) Oral (given by mouth) every day. Refills: 1. gabapentin (gabapentin 600 mg oral tablet) 1 tab(s) Oral (given by mouth) 4 times a day. TAKE 1 TABLET BY MOUTH THREE TIMES DAILY. Refills: 0. hydrochlorothiazide-lisinopril (hydrochlorothiazide-lisinopril 25 mg-20 mg oral tablet) 1 tab(s) Oral (given by mouth) every day. Refills: 5. sildenafil (sildenafil 20 mg oral tablet) TAKE TWO TO THREE TABLETS BY MOUTH DAILY NEEDED. Refills: 3. Medications to Continue That Have Not Changed Other Medications buPROPion (BuPROPion (Eqv-Wellbutrin SR) 150 mg/12 hours oral tablet, extended release) 1 tab(s) Oral (given by mouth) 2 times a day (scheduled). Refills: 1. FLUoxetine (FLUoxetine 20 mg oral capsule) 2 cap(s) Oral (given by mouth) every day. Refills: 1. gabapentin (gabapentin 600 mg oral tablet) 1 tab(s) Oral (given by mouth) 4 times a day. TAKE 1 TABLET BY MOUTH THREE TIMES DAILY. Refills: 0. hydrochlorothiazide-lisinopril (hydrochlorothiazide-lisinopril 25 mg-20 mg oral tablet) 1 tab(s) Oral (given by mouth) every day. Refills: 5. sildenafil (sildenafil 20 mg oral tablet) TAKE TWO TO THREE TABLETS BY MOUTH DAILY NEEDED. Refills: 3. Medications to Continue That Have Not Changed Other Medications buPROPion (BuPROPion (Eqv-Wellbutrin SR) 150 mg/12 hours oral tablet, extended release) 1 tab(s) Oral (given by mouth) 2 times a day (scheduled). Refills: 1. FLUoxetine (FLUoxetine 20 mg oral capsule) 2 cap(s) Oral (given by mouth) every day. Refills: 1. gabapentin (gabapentin 600 mg oral tablet) 1 tab(s) Oral (given by mouth) 4 times a day. TAKE 1 TABLET BY MOUTH THREE TIMES DAILY. Refills: 0. hydrochlorothiazide-lisinopril (hydrochlorothiazide-lisinopril 25 mg-20 mg oral tablet) 1 tab(s) Oral (given by mouth) every day. Refills: 5. sildenafil (sildenafil 20 mg oral tablet) TAKE TWO TO THREE TABLETS BY MOUTH DAILY NEEDED. Refills: 3. Comment: Lab and Radiology Results Laboratory or Other Results This Visit (last charted value for your 11/04/2023 visit) No Laboratory or Other Results This Visit DIET & ACTIVITY Patient Activity Level: Patient Diet: Patient Activity Restrictions: DISCHARGE INFORMATION Discharge Disposition: Discharge Location: DEPART REASON INCOMPLETE INFORMATION PATIENT EDUCATION INFORMATION Instructions: Follow up: Type Location Start Finish State Pain Post Procedure (MAGR) PAIN MANAGE 11/25/2023 8:00 AM 11/25/2023 8:10 AM Confirmed AMB Follow Up 15 (MAGR) [facility] 04/26/2024 9:00 AM 04/26/2024 9:15 AM Confirmed DIAGNOSIS Comment: PHYS DOC NOTES [facility] 11-03-2023 Note [id number] The history of present illness has been reviewed. There are no changes document. [Electronically Signed on: 11/04/2023 11:31 EDT] JACINTO OLMOS MD [Verified on: 11/04/2023 11:31 EDT] JACINTO OLMOS MD [Transcribed on: 11/03/2023 13:43 EDT] [facility] 10-25-2023 Note [id number] [facility] 10-24-2023 Note [id number] [facility] 10-21-2023 Note [facility] SURGERY Clinical Discharge Summary PERSON INFORMATION Name ENRRIQUE MADERA Age 57 Years 1965 Sex MALE Language Pakistani PCP LEON MUNOZ DO Marital Status Med Service Pain Management Surgery Acct# Arrival 10/21/2023 07:29:56 Visit Reason LUMBOSACRAL SPONDYLOSIS Acuity LOS 002 17:42 Address: [address] [place] [address] Comment: PROVIDER INFORMATION VITALS INFORMATION Vital Sign Triage Latest Temp Oral Temp Temporal Temp Intravascular Temp Axillary Temp Rectal 02 Sat 100 % 100 % Respiratory Rate Peripheral Pulse Rate Apical Heart Rate Blood Pressure / 97 mmHg / 97 mmHg Comment: MEDICAL INFORMATION Allergy Info: narcotic analgesics Prescriptions Given: buPROPion (BuPROPion (Eqv-Wellbutrin SR) 150 mg/12 hours oral tablet, extended release) 1 tab(s) Oral (given by mouth) 2 times a day (scheduled). Refills: 1. FLUoxetine (FLUoxetine 20 mg oral capsule) 2 cap(s) Oral (given by mouth) every day. Refills: 1. gabapentin (gabapentin 600 mg oral tablet) 1 tab(s) Oral (given by mouth) 4 times a day. TAKE 1 TABLET BY MOUTH THREE TIMES DAILY. Refills: 0. hydrochlorothiazide-lisinopril (hydrochlorothiazide-lisinopril 25 mg-20 mg oral tablet) 1 tab(s) Oral (given by mouth) every day. Refills: 5. sildenafil (sildenafil 20 mg oral tablet) TAKE TWO TO THREE TABLETS BY MOUTH DAILY NEEDED. Refills: 3. traMADol (traMADol 50 mg oral tablet) 1 tab(s) Oral (given by mouth) 3 times a day (scheduled) as needed as needed for pain. Medication List: Medications That Were Updated - Follow Below Instructions Other Medications Updated: traMADol (traMADol 50 mg oral tablet) 1 tab(s) Oral (given by mouth) 3 times a day (scheduled) as needed as needed for pain. Medications to Continue That Have Not Changed Other Medications buPROPion (BuPROPion (Eqv-Wellbutrin SR) 150 mg/12 hours oral tablet, extended release) 1 tab(s) Oral (given by mouth) 2 times a day (scheduled). Refills: 1. FLUoxetine (FLUoxetine 20 mg oral capsule) 2 cap(s) Oral (given by mouth) every day. Refills: 1. gabapentin (gabapentin 600 mg oral tablet) 1 tab(s) Oral (given by mouth) 4 times a day. TAKE 1 TABLET BY MOUTH THREE TIMES DAILY. Refills: 0. hydrochlorothiazide-lisinopril (hydrochlorothiazide-lisinopril 25 mg-20 mg oral tablet) 1 tab(s) Oral (given by mouth) every day. Refills: 5. sildenafil (sildenafil 20 mg oral tablet) TAKE TWO TO THREE TABLETS BY MOUTH DAILY NEEDED. Refills: 3. Medications That Were Updated - Follow Below Instructions Other Medications Updated: traMADol (traMADol 50 mg oral tablet) 1 tab(s) Oral (given by mouth) 3 times a day (scheduled) as needed as needed for pain. Medications to Continue That Have Not Changed Other Medications buPROPion (BuPROPion (Eqv-Wellbutrin SR) 150 mg/12 hours oral tablet, extended release) 1 tab(s) Oral (given by mouth) 2 times a day (scheduled). Refills: 1. FLUoxetine (FLUoxetine 20 mg oral capsule) 2 cap(s) Oral (given by mouth) every day. Refills: 1. gabapentin (gabapentin 600 mg oral tablet) 1 tab(s) Oral (given by mouth) 4 times a day. TAKE 1 TABLET BY MOUTH THREE TIMES DAILY. Refills: 0. hydrochlorothiazide-lisinopril (hydrochlorothiazide-lisinopril 25 mg-20 mg oral tablet) 1 tab(s) Oral (given by mouth) every day. Refills: 5. sildenafil (sildenafil 20 mg oral tablet) TAKE TWO TO THREE TABLETS BY MOUTH DAILY NEEDED. Refills: 3. Medications That Were Updated - Follow Below Instructions Other Medications Updated: traMADol (traMADol 50 mg oral tablet) 1 tab(s) Oral (given by mouth) 3 times a day (scheduled) as needed as needed for pain. Medications to Continue That Have Not Changed Other Medications buPROPion (BuPROPion (Eqv-Wellbutrin SR) 150 mg/12 hours oral tablet, extended release) 1 tab(s) Oral (given by mouth) 2 times a day (scheduled). Refills: 1. FLUoxetine (FLUoxetine 20 mg oral capsule) 2 cap(s) Oral (given by mouth) every day. Refills: 1. gabapentin (gabapentin 600 mg oral tablet) 1 tab(s) Oral (given by mouth) 4 times a day. TAKE 1 TABLET BY MOUTH THREE TIMES DAILY. Refills: 0. hydrochlorothiazide-lisinopril (hydrochlorothiazide-lisinopril 25 mg-20 mg oral tablet) 1 tab(s) Oral (given by mouth) every day. Refills: 5. sildenafil (sildenafil 20 mg oral tablet) TAKE TWO TO THREE TABLETS BY MOUTH DAILY NEEDED. Refills: 3. Comment: Lab and Radiology Results Laboratory or Other Results This Visit (last charted value for your 10/21/2023 visit) No Laboratory or Other Results This Visit DIET & ACTIVITY Patient Activity Level: Patient Diet: Patient Activity Restrictions: DISCHARGE INFORMATION Discharge Disposition: Discharge Location: DEPART REASON INCOMPLETE INFORMATION PATIENT EDUCATION INFORMATION Instructions: Follow up: Type Location Start Finish State Secured Appointment Type Secured Location 10/24/2023 9:00 AM 10/24/2023 9:30 AM Confirmed Secured Appoi (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 [facility] 10-20-2023 Note [id number] The history of present illness has been reviewed. There are no changes document. [Electronically Signed on: 10/21/2023 07:47 EST] JACINTO OLMOS MD [Verified on: 10/21/2023 07:47 EST] JACINTO OLMOS MD [Transcribed on: 10/20/2023 12:33 EST] [facility] 10-04-2023 History of Present illness Narrative Images from the original note were not included. [facility] [address] [place] [address], [place] [address] * CHART NOTE ? 10/06/2023 Patient: Enrrique Madera 1965 [id number] Physician: Panfilo Childress MD CHIEF COMPLAINT Follow up. HISTORY OF PRESENT ILLNESS 57 year old male presents to the office today as a post-op patient S/P L2-5 decompressive laminectomy with partial medial facetectomies on 07/25/23. Enrrique reports he continues to have numbness in the left anterior thigh along with back pain that occurs after a long day of physical activity. His symptoms remain stable since his last visit. Patient's imaging was discussed and reviewed to their understanding in office today. He has been compliant with physical therapy which he reports has been helping him moderately. Patient advised to continue with conservative treatment and repeat his EMG. Denies loss of senior media planner strength, saddle anesthesia, urinary or bowel dysfunction, weakness, numbness or tingling, radicular symptoms, and loss of balance. Patient does not use an assistive device for ambulation. Patient is not diabetic and former smoker. No relevant surgical Hx. ALLERGIES Allergies Allergen Reactions Other Other (See Comments) Avoid Narcotics MEDICATIONS Current Outpatient Medications: buPROPion (WELLBUTRIN) 100 mg tablet, Take 1 tablet (100 mg total) by mouth every morning., Disp: , Rfl: FLUoxetine (PROzac) 10 mg capsule, Take 1 capsule (10 mg total) by mouth in the morning and 1 capsule (10 mg total) before bedtime. Indications: anxiousness associated with depression., Disp: , Rfl: gabapentin (NEURONTIN) 300 mg capsule, Take 1 capsule (300 mg total) by mouth 3 (three) times a day Indications: neuropathic pain., Disp: , Rfl: omeprazole (PriLOSEC) 20 mg capsule, Take 1 capsule (20 mg total) by mouth every morning before breakfast Indications: gastroesophageal reflux disease., Disp: , Rfl: sildenafiL, pulm.hypertension, (REVATIO) 20 mg tablet, TAKE 2 TO 3 TABLETS BY MOUTH ONCE DAILY NEEDED, Disp: , Rfl: diclofenac (VOLTAREN) 75 mg EC tablet, Take 1 tablet (75 mg total) by mouth in the morning and 1 tablet (75 mg total) before bedtime. Indications: joint damage causing pain and loss of function. (Patient not taking: Reported on 10/04/2023), Disp: , Rfl: methocarbamoL (ROBAXIN) 500 mg tablet, Take 1 tablet (500 mg total) by mouth in the morning and 1 tablet (500 mg total) at noon and 1 tablet (500 mg total) in the evening and 1 tablet (500 mg total) before bedtime. (Patient not taking: Reported on 10/04/2023), Disp: 28 tablet, Rfl: 0 naloxone (NARCAN) 4 mg/actuation spray,non-aerosol nasal spray, Administer 1 spray (4 mg total) into alternating nostrils as needed for opioid reversal. (Patient not taking: Reported on 10/04/2023), Disp: 1 each, Rfl: 0 traMADoL (ULTRAM) 50 mg tablet, Take 1 tablet (50 mg total) by mouth every 6 (six) hours as needed for pain for up to 14 days., Disp: 30 tablet, Rfl: 1 VITAL SIGNS BP (!) 148/92 (BP Site: Left Arm, BP Postition: Sitting, BP CUFF SIZE: L (13-17 inches)) Pulse 87 Ht 182.9 cm (6') Wt 90.7 kg (200 lb) BMI 27.12 kg/m PHYSICAL EXAMINATION Neurologic Exam Mental Status Oriented to person, place, and time. Level of consciousness: alert Knowledge: good. Motor Exam Muscle bulk: normal Overall muscle tone: normal Sensory Exam Light touch normal. Gait, Coordination, and Reflexes Gait Gait: normal Reflexes Right brachioradialis: 2+ Left brachioradialis: 2+ Right biceps: 2+ Left biceps: 2+ Right triceps: 2+ Left triceps: 2+ Right patellar: 2+ Left patellar: 2+ Right achilles: 2+ Left achilles: 2+ Right senior media planner: 2+ Left senior media planner: 2+ Right Gonsalez: absent Left Gonsalez: absent Right ankle clonus: absent Left ankle clonus: absent MRI / IMAGES MR lumbar spine with and without contrast 09-23-2023 IMPRESSION: * Extensive postoperative changes in the lumbar spine with robust rim of enhancement along the laminectomy bed. Superimposed infection cannot be excluded by MR. * No convincing pathologic enhancement within the thecal sac. * Multilevel degenerative spondylotic changes as described with neuroforaminal narrowing. * Chronic compression fractures of T11 and T12, with postoperative changes at T12 kyphoplasty. XR spine lumbar flexion and extension 09-23-2023 IMPRESSION: * No significant change IMPRESSION / PLAN 57 year old male presents to the office today as a post-op patient S/P L2-5 decompressive laminectomy with partial medial facetectomies on 07/25/23. Enrrique reports he continues to have numbness in the left anterior thigh along with back pain that occurs after a long day of physical activity. His symptoms remain stable since his last visit. Patient's imaging was discussed and reviewed to their understanding in office today. He has been compliant with physical therapy which he reports has been helping him moderately. Patient advised to continue with conservative treatment and repeat his EMG. PLAN: Patient to remain off work for 4 weeks. Continue PT. EMG/NCS of the BLE. Tramadol - one by mouth nightly as neeed. 14 day supply. Follow up in 4 weeks. Electronically Signed By: Panfilo Childress MD This note was created with the assistance of a speech recognition program with the goal of generating a timely record of the patient encounter. Inadvertent computerized mba internship errors related to syntax, spelling, homophones, and/or inaudibility may be present. Scribe Statement: Scribed for and in the presence of Panfilo Childress MD by Ramon Miller. Provider Statement: I, Panfilo Childress MD personally performed the services described in the documentation, as scribed by OS in my presence, and it is both accurate and complete. documented in this encounter [facility] 10-04-2023 Instructions RAN Stark - 10/04/2023 12:20 PM EST Patient was seen by Dr. Childress Patient will be off of work for 4 weeks. Patient will continue PT An order for EMG/NCS Both Legs Tramadol 50mg 1 tablet nightly 14 day supply, #30 1 refill. JA documented in this encounter [facility] 09-13-2023 Note [id number]#[id number] 09-06-2023 History of Present illness Narrative Images from the original note were not included. [facility] [address] [place] [address], [place] [address] * CHART NOTE ? 09/06/2023 Patient: Enrrique Madera 1965 [id number] Physician: Panfilo Childress MD CHIEF COMPLAINT Post-op. HISTORY OF PRESENT ILLNESS 57 year old male presents to the office today as a post-op patient S/P L2-5 decompressive laminectomy with partial medial facetectomies on 07/25/23. Enrrique reports he continues to have numbness in the left anterior thigh with new muscle atrophy. He reports that, while in the hospital for his surgery, he was reaching over the bed several times to get his backpack off the floor, and is not sure if he could have injured his back. Denies loss of senior media planner strength, saddle anesthesia, urinary or bowel dysfunction, weakness, numbness or tingling, radicular symptoms, and loss of balance. Patient does not use an assistive device for ambulation. Patient is not diabetic and former smoker. No relevant surgical Hx. ALLERGIES Allergies Allergen Reactions Other Other (See Comments) Avoid Narcotics MEDICATIONS Current Outpatient Medications: buPROPion (WELLBUTRIN) 100 mg tablet, Take 1 tablet (100 mg total) by mouth every morning., Disp: , Rfl: diclofenac (VOLTAREN) 75 mg EC tablet, Take 1 tablet (75 mg total) by mouth in the morning and 1 tablet (75 mg total) before bedtime. Indications: joint damage causing pain and loss of function., Disp: , Rfl: FLUoxetine (PROzac) 10 mg capsule, Take 1 capsule (10 mg total) by mouth in the morning and 1 capsule (10 mg total) before bedtime. Indications: anxiousness associated with depression., Disp: , Rfl: gabapentin (NEURONTIN) 300 mg capsule, Take 1 capsule (300 mg total) by mouth 3 (three) times a day Indications: neuropathic pain., Disp: , Rfl: methocarbamoL (ROBAXIN) 500 mg tablet, Take 1 tablet (500 mg total) by mouth in the morning and 1 tablet (500 mg total) at noon and 1 tablet (500 mg total) in the evening and 1 tablet (500 mg total) before bedtime., Disp: 28 tablet, Rfl: 0 naloxone (NARCAN) 4 mg/actuation spray,non-aerosol nasal spray, Administer 1 spray (4 mg total) into alternating nostrils as needed for opioid reversal., Disp: 1 each, Rfl: 0 omeprazole (PriLOSEC) 20 mg capsule, Take 1 capsule (20 mg total) by mouth every morning before breakfast Indications: gastroesophageal reflux disease., Disp: , Rfl: sildenafiL, pulm.hypertension, (REVATIO) 20 mg tablet, TAKE 2 TO 3 TABLETS BY MOUTH ONCE DAILY NEEDED, Disp: , Rfl: VITAL SIGNS BP (!) 140/95 Pulse 76 Ht 182.9 cm (6' 0.01 ) Wt 93 kg (205 lb) BMI 27.80 kg/m PHYSICAL EXAMINATION Neurologic Exam Mental Status Oriented to person, place, and time. Level of consciousness: alert Knowledge: good. Motor Exam Muscle bulk: decreased Overall muscle tone: decreased (in LLE) Strength Strength 5/5 except as noted. Left quadriceps: 4/5 Sensory Exam Right arm light touch: normal Left arm light touch: normal Right leg light touch: normal Left leg light touch: decreased in left anterior thigh. Gait, Coordination, and Reflexes Reflexes Right brachioradialis: 2+ Left brachioradialis: 2+ Right biceps: 2+ Left biceps: 2+ Right triceps: 2+ Left triceps: 2+ Right patellar: 2+ Left patellar: 0 Right achilles: 2+ Left achilles: 2+ Right senior media planner: 2+ Left senior media planner: 2+ Right Gonsalez: absent Left Gonsalez: absent Right ankle clonus: absent Left ankle clonus: absent Antalgic gait MRI / IMAGES None new IMPRESSION / PLAN 57 year old male presents to the office today as a post-op patient S/P L2-5 decompressive laminectomy with partial medial facetectomies on 07/25/23. Enrrique reports he continues to have numbness in the left anterior thigh with new muscle atrophy. He reports that, while in the hospital for his surgery, he was reaching over the bed several times to get his backpack off the floor, and is not sure if he could have injured his back. PLAN: Refer to physical therapy to work on increasing strength/muscle mass in the LLE. Lumbar flexion-extension x-rays. Lumbar MRI with and without contrast. Patient is status post lumbar laminectomy with partial medial facetectomies with increased numbness and sensory deficit in the left anterior thigh(L4-5). There is 4/5 weakness in the left quadriceps. Letter to remain off work for additional 4 weeks in order to get MRI and complete some physical therapy. Patient to follow up after MRI. Electronically Signed By: 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 CNP This note was created with the assistance of a speech recognition program with the goal of generating a timely record of the patient encounter. Inadvertent computerized mba internship errors related to syntax, spelling, homophones, and/or inaudibility may be present. 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) [facility] Other 01-25-2023 Evaluation note* Encounter Date Diagnosis Assessment Notes Treatment Notes Treatment Clinical Notes Aug, Obstructive sleep apnea (ICD-10 - G47.33) [facility] Other Evaluation noteNo assessment information available [facility] Work Phone: Evaluation note* Diagnosis Status post lumbar laminectomy- Primary Lumbar radiculopathy Thoracic or lumbosacral neuritis or radiculitis, unspecified Weakness of left lower extremity Sensory deficit, left [facility] Diagnosis Status post lumbar laminectomy- Primary Weakness of left lower extremity [facility] Diagnosis Degeneration of lumbar or lumbosacral intervertebral disc- Primary S/P lumbar laminectomy Other postprocedural status documented in this encounter [facility] general Narrative - Reported* Type Description Date Medical History chronic back pain Medical History depressive disorder Medical History E.D. [facility] Other Reason for referral (narrative)* Consultation (Routine) - Authorized Specialty Diagnoses / Procedures Referred By Rainer t Referred To Contact Rehabilitation Diagnoses Status post lumbar laminectomy Low back pain, non-specific 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 APRN-CNP [address] [place] [address] Bp [facility] Re[facility] [address] [facility] [place] [address] Referral ID Status Reason Start Date Expiration Date Visits Requested Visits Authorized [id number] Authorized Specialty Services Required 09/06/2023 09/05/2024 1 1 * Diagnostic Imaging (Routine) - Pending Review Specialty Diagnoses / Procedures Referred By Contac t Referred To Contact Radiology Diagnoses Status post lumbar laminectomy Low back pain, non-specific Procedures MR lumbar spine with and without contrast 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, CHIVO [address] [place] [address] [address] [place] [address] [place] [id number] [facility] [place] [address] Phone: [phone] Referral ID Status Reason Start Date Expiration Date V isits Requested Visits Authorized [id number] Pending Review 09/06/2023 09/05/2024 1 1 [facility] Summary Purpose Family History No Family History Records FoundNo Family History Records FoundNo Family History Records FoundNo Family History Records FoundNo Family History Records FoundNo Family History Records FoundNo Family History Records FoundNo Family History Records FoundNo Family History Records Found Advance Directives No Advanced Directives Records Found Advance Directive Response Recorded Date/ Time Advance Directives No September 02, 2022 2:51pm Advance Directive Response Recorded Date/ Time Advance Directives No September 02, 2022 3:51pm Latest Code Status on File Code Status Date Activated Date Inactivated Comments Full Code 07/26/2023 7:31 AM 07/27/2023 3:31 PM Chief Complaint and Reason for Visit Chief Complaint G47.30 Chief Complaint Obstructive sleep ap laura Reason for Referral Specialty Diagnoses / Procedures Referred By Contac t Referred To Contact Diagnoses Status post lumbar laminectomy Weakness of left lower extremity Procedures EMG Panfilo Childress MD [address] [place] [address] [address] [place] [phone] Referral ID Status Reason Start Date Expiration Date V isits Requested Visits Authorized [id number] Pending Review 10/04/2023 10/03/2024 1 1 Specialty Diagnoses / Procedures Referred By Contac t Referred To Contact Rehabilitation Diagnoses Status post lumbar laminectomy Panfilo Childress MD [address] [place] [address] [address] [place] [address] [facility] [address] [place] [address] Referral ID Status Reason Start Date Expiration Date Visits Requested Visits Authorized [id number] Authorized Specialty Services Required 10/04/2023 10/03/2024 1 1 Additional Source Comments (unrecognized sect ion and content) No Status Records FoundNo Status Records FoundNo Status Records FoundNo Status Records FoundNo Status Records FoundNo Status Records FoundNo Status Records FoundNo Status Records FoundNo Status Records Found INFORMATION SOURCE (unrecogn ized section and content) DATE CREATED AUTHOR 02/01/2018 [facility] DATE CREATED AUTHOR AUTHOR'S ORGANIZ ATION 08/24/2021 [facility] DATE CREATED AUTHOR AUTHOR'S ORGANIZ ATION 02/26/2023 [facility] DATE CREATED AUTHOR AUTHOR'S ORGANIZ ATION 09/28/2023 [facility] DATE CREATED AUTHOR AUTHOR'S ORGANIZ ATION 10/11/2023 [facility] DATE CREATED AUTHOR AUTHOR'S ORGANIZ ATION 10/31/2023 [facility] DATE CREATED AUTHOR AUTHOR'S ORGANIZ ATION 12/23/2023 [facility] DATE CREATED AUTHOR AUTHOR'S ORGANIZ ATION 02/12/2024 [facility] DATE CREATED AUTHOR AUTHOR'S ORGANIZ ATION 02/14/2024 [facility] Care Teams (unrecognized sec tion and content) Team Status: Inactive Member Role Status Dates Tai Jensen MD Attending Provider Active Bernard Simeon MD Primary Care Provider Active Team Status: Active Member Role Status Dates Bernard Simeon MD Primary Care Provider Active Team Status: Inactive Member Role Status Dates Bernard Simeon MD Primary Care Provider Active Melissa Galan APRN [facility] Attending Provider Active Lead Inspector Relationship Specialty Start Date End Date Leon Munoz DO [address] [place] [address] PCP - General Family Medicine 07/25/23 Lead Inspector Relationship Specialty Start Date End Date Tammy Leon DO Rod[place] [address] [place] [address] PCP - General Family Medicine 07/25/23 Lead Inspector Relationship Specialty Start Date End Date Hany Hathaway MD [address] [place] [address] PCP - General Family Medicine 02/07/24 Goals (unrecognized section and content) Goals may be documented in a n alternate sectionNo InformationGoals may be documented in an alternate sectionNo InformationNot on filedocumented as of this encounterNot on filedocumented as of this encounter REASON FOR VISIT (unrecogniz ed section and content) Reason Comments Follow-up P/o lumbar lami Reason Comments Follow-up [facility] Source Comments (unrecognize d section and content) In the event this informatio n is protected by the Federal Confidentiality of Alcohol and Drug Abuse Patient Records regulations: The Federal rules restrict any use of the information to criminally investigate or prosecute any alcohol or drug abuse patient.[facility] FOR RECORDS PERTAINING TO PATIENTS WHO ARE OR HAVE BEEN ENROLLED IN A CHEMICAL DEPENDENCY/SUBSTANCEABUSE PROGRAM, SOME INFORMATION MAY BE OMITTED. This clinical summary was aggregated from multiple sources. Caution should be exercised in using it in the provision of clinical care. This summary normalizes information from multiple sources, and as a consequence, information in this document may materially change the coding, format and clinical context of patient data. In addition, data may be omitted in some cases. CLINICAL DECISIONS SHOULD BE BASED ON THE PRIMARY CLINICAL RECORDS. [employer] [facility]. provides no warranty or guarantee of the accuracy or completeness of information in this document.
== END 2024-02-15 11:04 | disposition home or self-care (01) ==
LOC: RAD 11:04
PROVIDERS: PCP Family Medicine; Visit Provider Family Medicine
DX: M25.811 Other specified joint disorders, right shoulder (principal); S46.101A Unspecified injury of muscle, fascia and tendon of long head of biceps, right arm, initial encounter
CPT/HCPCS: 73030

== ENCOUNTER 2024-02-23 08:33 | Day surgery (SDC) | payer OTHER, SELFPAY ==
--- NOTE | 2024-02-23 | MR_ITS ---
The [address] [address] Patient Name: ENRRIQUE MADERA MRN: [id number] date: 1965 Sex: M Assigned Patient Location: MRI Current Patient Location: Accession/Order Number: [id number] Exam Date: 02/23/2024 09:45 Report Date: 02/26/2024 08:19 At the request of: DAMIAN OLIVARES Procedure: MR shoulder RT w con EXAM: MR shoulder RT w con REASON FOR EXAM: Shoulder Impingement. TECHNIQUE: Multiplanar, multisequence imaging of the right shoulder was performed following the uneventful intra-articular administration of contrast. See separate arthrogram report for procedure description COMPARISON: Radiograph 02/15/2024. FINDINGS: Study degraded by motion. The AC joint is congruent. Mild joint space narrowing capsular hypertrophy. Inferior marginal osteophytes minimally narrow the supraspinatus outlet. There is also broad-based thickening and partial ossification of the distal coracoacromial ligament. Contrast fluid identified within the subacromial subdeltoid bursa consistent with a full-thickness rotator cuff tear. Superimposed on tendinosis, there is full-thickness, fullwidth tear of the supraspinatus tendon with proximal retraction the level the glenoid. Low to intermediate grade partial tears articular sided tear of the infraspinatus tendon at the insertion. The teres minor tendon is intact. The subscapularis tendon demonstrates full-thickness, fullwidth tear of proximal retraction the level the glenoid. There is poor visualization of the intracapsular as well as the extracapsular biceps tendon consistent with biceps tendon rupture. The biceps tendon approximately 6 cm below level the bicipital groove. The humerus is high riding on the glenoid. Intermediate grade chondrosis the glenohumeral cartilage. Circumferential labral degeneration. No intra-articular body. The bone marrow signal is without fracture. The quadrilateral space is patent. No axillary lymphadenopathy. MR/MR shoulder RT w con IMPRESSION: 1. Full-thickness, fullwidth tears of the supraspinatus and subscapularis tendons with proximal retraction level glenoid. 2. Intracapsular biceps tendon rupture. The biceps tendon identified approximately 6 cm below level the bicipital groove. 3. Mild to moderate AC joint osteoarthritis. 4. Moderate glenohumeral osteoarthritis Electronically authenticated by: LAURA BLACK Date: 02/26/2024 08:19
--- NOTE | 2024-02-23 08:45 | FL_ITS ---
[address] [address] Patient Name: ENRRIQUE MADERA MRN: [id number] date: 1965 Sex: M Assigned Patient Location: MRI Current Patient Location: MRI Accession/Order Number: [id number] Exam Date: 02/23/2024 08:55 Report Date: 02/23/2024 09:52 At the request of: DAMIAN OLIVARES Procedure: FL guided needle placement EXAMINATION: FL arthrogram shoulder, FL guided needle placement HISTORY: Shoulder Impingement COMPARISON: No relevant comparison available. TECHNIQUE: An arthrogram was performed under fluoroscopic guidance using non-ionic contrast material in the usual sterile manner after obtaining informed consent. Standard level fluoroscopic mode of operation utilized. FINDINGS: JOINT: Right shoulder NEEDLE: 25 gauge, 3.5 spinal needle. MEDICATION: 2cc buffered 1% lidocaine for subcutaneous anesthesia, 10cc of the following mixture: 5 cc Omnipaque-300, 5 mL's of 1% lidocaine, dotarem 0.2ml, 3 cc of sterile saline injected into the joint space. TECHNIQUE: Anterior approach. A single stick was successful in gaining access to the joint space. CLINICAL: 7/10 pain before injection, 6/10 pain after injection. COMPLICATIONS: None. BONES: Normal. No erosion, osteophyte, fracture, or bony lesion. CARTILAGE: Normal. No visible erosion or interruption. CAPSULE: extravasation of contrast consistent with a capsule or labral tear GURU-ARTICULAR: Normal. No visible guru-articular soft tissue abnormality. LOOSE BODIES: None. OTHER: Negative. FL/FL guided needle placement IMPRESSION: Technically successful right shoulder arthrogram Electronically authenticated by: ELIAS HOPPER Date: 02/23/2024 09:52
--- NOTE | 2024-02-23 08:45 | FL_ITS ---
The [address] [address] Patient Name: ENRRIQUE MADERA MRN: [id number] date: 1965 Sex: M Assigned Patient Location: MRI Current Patient Location: MRI Accession/Order Number: [id number] Exam Date: 02/23/2024 08:55 Report Date: 02/23/2024 09:52 At the request of: DAMIAN OLIVARES Procedure: FL arthrogram shoulder EXAMINATION: FL arthrogram shoulder, FL guided needle placement HISTORY: Shoulder Impingement COMPARISON: No relevant comparison available. TECHNIQUE: An arthrogram was performed under fluoroscopic guidance using non-ionic contrast material in the usual sterile manner after obtaining informed consent. Standard level fluoroscopic mode of operation utilized. FINDINGS: JOINT: Right shoulder NEEDLE: 25 gauge, 3.5 spinal needle. MEDICATION: 2cc buffered 1% lidocaine for subcutaneous anesthesia, 10cc of the following mixture: 5 cc Omnipaque-300, 5 mL's of 1% lidocaine, dotarem 0.2ml, 3 cc of sterile saline injected into the joint space. TECHNIQUE: Anterior approach. A single stick was successful in gaining access to the joint space. CLINICAL: 7/10 pain before injection, 6/10 pain after injection. COMPLICATIONS: None. BONES: Normal. No erosion, osteophyte, fracture, or bony lesion. CARTILAGE: Normal. No visible erosion or interruption. CAPSULE: extravasation of contrast consistent with a capsule or labral tear GURU-ARTICULAR: Normal. No visible guru-articular soft tissue abnormality. LOOSE BODIES: None. OTHER: Negative. FL/FL arthrogram shoulder IMPRESSION: Technically successful right shoulder arthrogram Electronically authenticated by: ELIAS HOPPER Date: 02/23/2024 09:52
[2024-02-23] MEDS: LIDOCAINE HCL 15 ML, SODIUM BICARBONATE 2 MEQ INJ (09:20)
--- NOTE | 2024-02-23 13:49 | SUR.PREOP ---
02/20/24 Reviewed with pt procedure, date, time, and prep.
== END 2024-02-23 09:40 | disposition home or self-care (01) ==
LOC: MRI 08:33
PROVIDERS: Radiology Diagnostic Radiology; PCP Family Medicine; Visit Provider Family Medicine
DX: M75.41 Impingement syndrome of right shoulder (principal); M25.811 Other specified joint disorders, right shoulder; S46.119A Strain of muscle, fascia and tendon of long head of biceps, unspecified arm, initial encounter; M19.011 Primary osteoarthritis, right shoulder
CPT/HCPCS: 23350; 73222; 77002; A9575; Q9967

== ENCOUNTER 2024-03-28 12:47 | Outpatient (OUT) | payer OTHER, SELFPAY ==
[2024-03-28 13:38] LABS: Sodium Urine Random 49 mmol/L (30-90)
[2024-03-28 13:46] LABS: Alanine Aminotransferase 34 U/L (16-63); Albumin Globulin Ratio 1.1; Albumin Level 3.1 g/dL (3.4-5.0); Alkaline Phosphatase 63 U/L (46-116); Anion Gap 9.7; Aspartate Amino Transferase 28 U/L (15-37); BUN Creatinine Ratio 9.1; Bilirubin Total 0.8 mg/dL (0.2-1.0); Calcium 8.4 mg/dL (8.5-10.1); Chloride 100 mmol/L (98-107); Estimated GFR (African America >60 (>=60); Estimated GFR (Non-African Ame >60 (>=60); Globulin 2.8 g/dL; Glucose 69 mg/dL (74-106); Potassium 4.2 mmol/L (3.5-5.1); Sodium 134 mmol/L (136-145); Total Protein 5.9 g/dL (6.4-8.2)
[2024-03-28 13:53] LABS: Carbon Dioxide 28.8 mmol/L (21.0-32.0)
== END 2024-03-28 12:48 | disposition home or self-care (01) ==
LOC: LAB 12:49
PROVIDERS: PCP Family Medicine; Visit Provider Family Medicine
DX: E87.1 Hypo-osmolality and hyponatremia (principal)
CPT/HCPCS: 36415; 80053; 84300

== ENCOUNTER 2024-04-03 14:20 | Outpatient (OUT) | payer OTHER, SELFPAY ==
--- NOTE | 2024-04-03 | CONS_ITS ---
CONSULTATION DATE: 04/03/2024 TO: Hany Hathaway M.D. CHIEF COMPLAINT: Includes significant low back pain, right leg pain. HISTORY OF PRESENT ILLNESS: Review of systems, past medical/surgical history were obtained and documented on the health questionnaire and is available upon request. He reports having a pain in his low back at 8/10 in severity, describes this as sharp, stabbing pain, increased with activities such as standing, walking and performing transitioning maneuvers. Feels most comfortable in the semi- recumbent position. Denies any change in bowel and bladder habits or new sensorimotor changes in the lower extremities. He reports he has been having a long standing history of right leg weakness and numbness, but no progressive changes. MEDICATION: His current medication list includes gabapentin 600 mg q.i.d., diclofenac and his LILLIE on today?s visit was 32%. He has also been using Butrans patch 15 mcg once a week. EXAMINATION: Notable for patient having hypoesthesia along the right L4 dermatome, 2/5 strength of the right quadriceps and anterior tibialis, depressed right patellar reflex. Straight leg raise was equivocally positive at 90 degrees. No clinical myelopathy is noted with examination. He had significant myofascial spasm over the lumbar paravertebral muscles occurring bilaterally. IMPRESSION: Our impression is patient with chronic pain secondary to post laminectomy syndrome with right L4 radiculopathy. RECOMMENDATIONS: I recommend we consider a lumbosacral MRI with and without contrast, and will use sedation for the imaging study, as the patient attempted MRI in the past, unable to complete it secondary to persistent pain and unable to lie still. I recommend an EMG nerve study of the right lower extremity. Placed him on Zonegran 50 mg 1-2 at h.s. and baclofen 10 mg 1-2 t.i.d. I have asked him to continue with the Butrans patch. Will complete a urine toxicology screen on today?s visit. Will see the patient back in the office in approximately four weeks? time or sooner if needed. As part of providing excellent, safe, comprehensive care, the following was completed at our patient's visit: 1. A medication reconciliation and review to ensure accurate knowledge of current/active medications, including asking our patients to inform us about any [id number] medications or herbal remedies/nutritional supplements/alternative remedies. 2. A review to specifically ensure our patients have had annual screening for: elevated body mass index (BMI, see intake chart for exact total), tobacco use, screening for depression, and screening for unhealthy alcohol use. When screening is concerning, patients are provided with education and the specific recommendation to discuss the concerning health issue and treatment options with their primary care provider. FRANK
== END 2024-04-03 14:21 | disposition home or self-care (01) ==
LOC: PM 14:21
PROVIDERS: PCP Family Medicine; Visit Provider Anesthesiology Pain Medicine
DX: M96.1 Postlaminectomy syndrome, not elsewhere classified (principal); M54.16 Radiculopathy, lumbar region
CPT/HCPCS: G0463

== ENCOUNTER 2024-04-10 17:10 | Emergency (ER) | payer OTHER, SELFPAY ==
[2024-04-10 17:26] VITALS: BP 153/103; PULSE 92; TEMP 36.8; O2SAT 96; BMI 26.4
--- NOTE | 2024-04-10 17:52 | ED_ITS ---
HPI HPI - Back Pain/Injury General Chief Complaint: Back Pain/Injury Stated Complaint: Back and Leg Pain Time Seen by Provider: 04/10/24 17:27 Source: patient and family () Mode of arrival: walk-in Limitations: no limitations History of Present Illness HPI Narrative: 58-year-old male presents to the emergency department with with complaint of lower back pain. This is an ongoing problem for the patient. He is in pain management, under contract. He is also under evaluation at the [facility] for surgery. However, he was diagnosed with osteoporosis and he cannot have the surgery until his bone density scans improved. Pain has been progressively worsening over the past several days. Was advised by pain management come to the emergency department. Locates pain across his lower back with radiation of the buttock and circumferentially his right thigh. Has had some intermittent numbness and tingling going down his leg. All of this are chronic in nature and the pain is just uncontrolled. Denies any fever, chills, loss of bowel or bladder control, saddle anesthesias, history of IV drug use, weakness, motor or sensory changes. Quality:?As above Severity:?Moderate Timing:?As above, ongoing, worsening Context: Normal setting and activity? Modifying factors:?Pain worse with palpation or move Associated symptoms: As above Related Data Home Medications ?Medication ?Instructions ?Recorded ?Confirmed gabapentin 600 mg tablet 600 mg PO TID 02/21/24 04/10/24 baclofen 10 mg tablet 10 mg PO Q8H 04/10/24 04/10/24 buprenorphine 15 mcg/hour weekly 1 patch transdermal Q7D 04/10/24 04/10/24 transdermal patch bupropion HCl 150 mg tablet,12 hr 150 mg PO BID 04/10/24 04/10/24 sustained-release (Wellbutrin SR) diclofenac sodium 75 mg 75 mg PO Q12H 04/10/24 04/10/24 tablet,delayed release fluoxetine 40 mg capsule (Prozac) 40 mg PO DAILY 04/10/24 04/10/24 lisinopril 20 mg tablet 20 mg PO DAILY 04/10/24 04/10/24 zonisamide 50 mg capsule 50 mg PO BEDTIME 04/10/24 04/10/24 Allergies Allergy/AdvReac Type Severity Reaction Status Date / Time No Known Drug Allergies Allergy Verified 02/23/24 13:48 Opioid HPI Opioid Management Most Recent Opioid Data: Last Pain Scale 6 02/23/24 09:40 Review of Systems ROS Constitutional Denies: fever or chills Gastrointestinal Denies: abdominal pain, nausea or other (Loss of bowel control) Genitourinary Denies: blood in urine or other (urinary incontinence) Musculoskeletal Reports: back pain Neurological Reports: numbness in extremities; Denies: weakness in extremities or other (Saddle anesthesias) PFSH PFS Medical History (Updated 04/10/24 @ 18:15 by RENE Barajas) Compression fracture Spinal stenosis ?M48.00 - Spinal stenosis, site unspecified (ICD-10) Shoulder pain, right ?M25.511 - Pain in right shoulder (ICD-10) Rupture of left biceps tendon ?S46.212A - Strain of muscle, fascia and tendon of other parts of biceps, left arm, initial encounter (ICD-10) Arthritis ?M19.90 - Unspecified osteoarthritis, unspecified site (ICD-10) Surgical History (Updated 02/21/24 @ 13:01 by Ibis Cardoso) History of carpal tunnel release of both wrists ?Z98.890 - Other specified postprocedural states (ICD-10) Previous back surgery ?Z98.890 - Other specified postprocedural states (ICD-10) H/O laminectomy ?Z98.890 - Other specified postprocedural states (ICD-10) Exam Constitutional Vital Signs, click to edit/add: Last Vital Signs Temp 98.2 F 04/10/24 17:26 Pulse 92 H 04/10/24 17:26 Resp 18 04/10/24 17:26 BP 153/103 H 04/10/24 17:26 Pulse Ox 96 04/10/24 17:26 O2 Del Method Room Air 04/10/24 17:26 Common normals: no apparent distress, oriented x3 and alert HENMT Common normals: normocephalic and head/scalp atraumatic Head and scalp: normocephalic and atraumatic Back & Pelvis Lumbar spine/lower back: normal to inspection, paraspinal muscle tenderness Lumbar paraspinal muscle tenderness: bilateral Bilateral lumbar paraspinal mus charles tenderness: L4 and straight leg raise positive right; no lumbar spinal tenderness and no paraspinal muscle spasm Extremity Left lower extremity: ankle joint Left ankle: ROM (full with DF, PF, halux DF) Neuro Common normals: oriented x3, moves all extremities, no focal motor deficits, no sensory deficits noted and deep tendon reflexes 2+ bilaterally Sensorium/orientation: alert Speech: speech normal Psych Common normals: mental status grossly normal, thought process normal and cooperative Thought process: normal thought process Course Vital Signs Vital signs: Vital Signs Temperature 98.2 F 04/10/24 17:26 Pulse Rate 92 H 04/10/24 17:26 Respiratory Rate 18 04/10/24 17:26 Blood Pressure 153/103 H 04/10/24 17:26 Pulse Oximetry 96 04/10/24 17:26 Oxygen Delivery Method Room Air 04/10/24 17:26 Temperature 98.2 F 04/10/24 17:26 Pulse Rate 92 H 04/10/24 17:26 Respiratory Rate 18 04/10/24 17:26 Blood Pressure 153/103 H 04/10/24 17:26 Pulse Oximetry 96 04/10/24 17:26 Oxygen Delivery Method Room Air 04/10/24 17:26 MDM - Back Pain/Injury MDM Narrative Medical decision making narrative: Is a pleasant 58-year-old male who presents to the emergency department with complaint of worsening lower back pain. Chronic history of the back pain. Has radiation into his thigh. Has had some intermittent numbness tingling going down his leg. Denies any new symptoms. Denies any fever, loss of bowel or bladder control, weakness, saddle anesthesias, history of IV drug use On arrival, afebrile, vital signs are stable. On exam, nontoxic, somewhat uncomfortable appearing patient in no distress. He has to change positions in the bed to achieve comfort. He has some tenderness in the L4 region of the paraspinal musculature. There is some mild straightening of the normal lumbar lordosis consistent with spasm. He has positive straight leg raise on the right. Sensory intact. Dorsiflexion, plantarflexion, hallux dorsiflexion is strong and equal bilaterally. Reflexes intact. We will treat patient acutely for his pain in the emergency department. He is under pain contract and receives regular pain medicines and we will unable to prescribe anything at this time. He was instructed to contact his bridge painter helper for additional direction as far as this is concerned. He was given dose of 0.5 mg of Dilaudid IM, Motrin, and tizanidine. History and record review Discussion with independent historian: Patient's Differential diagnosis Favor exacerbation of chronic low back pain with lumbar radiculopathy Cauda equina less likely as patient has had no loss of bowel or bladder function, urinary retention, weakness Epidural abscess less likely as patient is not an IV drug user, no fever, no concerns based on history and physical Disposition ? The patient was discharged. Plan: Patient will be discharged to home. Condition at time of disposition: stable ? Advised to follow up with pain management provider. Advised to return for any worsening and/or development of new, concerning signs or symptoms PLEASE NOTE: Portions of the medical record may have been produced using electronic sports management internship and may contain errors with respect to translation of words which may not have been identified prior to finalization of the chart. Medical Records Attestation: I reviewed the patient's medical records. Discharge Plan Discharge Stand Alone Forms: Work/School Release, Portal Instructions Chief Complaint: Back Pain/Injury Clinical Impression: Acute exacerbation of chronic low back pain, Lumbar radiculopathy Patient Disposition: Home, Self-Care Time of Disposition Decision: 18:14 Condition: Good Mode of Transportation: Private Vehicle Prescriptions / Home Meds: No Action gabapentin 600 mg tablet 600 mg PO TID lisinopril 20 mg tablet 20 mg PO DAILY bupropion HCl [Wellbutrin SR] 150 mg tablet sustained-release 12 hr 150 mg PO BID fluoxetine [Prozac] 40 mg capsule 40 mg PO DAILY diclofenac sodium 75 mg tablet,delayed release (DR/EC) 75 mg PO Q12H baclofen 10 mg tablet 10 mg PO Q8H buprenorphine 15 mcg/hour patch weekly 1 patch transdermal Q7D zonisamide 50 mg capsule 50 mg PO BEDTIME Print Language: Azeri Instructions: Chronic Pain (ED) Referrals: Hany Hathaway MD [Primary Care Provider] - 1 week
[2024-04-10] MEDS: IBUPROFEN 600 MG TABLET PO (18:15)
[2024-04-10] MEDS: HYDROMORPHONE HCL 0.5 MG/0.5 ML SYRINGE IM (18:15)
[2024-04-10] MEDS: TIZANIDINE HCL 4 MG TABLET PO (18:15)
== END 2024-04-10 18:23 | disposition home or self-care (01) ==
PROVIDERS: Emergency Provider Emergency Medicine; PCP Family Medicine
DX: M54.50 Low back pain, unspecified (principal); G89.29 Other chronic pain; M54.16 Radiculopathy, lumbar region
CPT/HCPCS: 96372; 99284; J1170

== ENCOUNTER 2024-04-12 14:41 | Outpatient (OUT) | payer OTHER, SELFPAY ==
--- NOTE | 2024-04-12 15:08 | P.CN_ITS ---
Consult Note: HPI Data of Consult Patient: known to practice within the last 3 years Requesting Physician: Nury Crowley NP Primary Care Provider: Hany Hathaway MD Consult Narrative Reason for consult: f/u Narrative: He is a 58-year-old male who reports having had pain in his lower back for many years. He has undergone lumbar decompression and stabilization. Despite the success of his surgery, he still reports significant pain in his lower back and right lower extremity, rates it at 8-9/10 pain, sharp/ache in character, increased with activities such as standing, walking and performing transitioning maneuvers. He feels most comfortable in the semi-recumbent position. Denies any change in bowel and bladder habits or new sensorimotor changes in his lower extremities. current medications includes gabapentin 600 mg q.i.d., diclofenac 75mg BID, wellbutrin 300mg BID, prozac 40mg daily, zonegran 50mg HS, baclofen 10mg TID, as well as Butrans patch at 15 mcg, changed every week on tuesday. Patient reports upon starting zonegran 50mg HS he found benefit the first two nights then it stopped helping. He initially reported no side effects when asked. cc:: CC: Nury Crowley NP Review of Systems ROS Status of ROS 10 or more systems reviewed and unremark able except as noted in history and below Musculoskeletal Reports: back pain, extremity pain, extremity swelling and muscle weakness; Denies: joint pain or muscle cramps [facility] Medical History (Updated 04/13/24 @ 16:58 by Nury Crowley NP) Compression fracture Spinal stenosis ?M48.00 - Spinal stenosis, site unspecified (ICD-10) Shoulder pain, right ?M25.511 - Pain in right shoulder (ICD-10) Rupture of left biceps tendon ?S46.212A - Strain of muscle, fascia and tendon of other parts of biceps, left arm, initial encounter (ICD-10) Arthritis ?M19.90 - Unspecified osteoarthritis, unspecified site (ICD-10) Surgical History History of carpal tunnel release of both wrists ?Z98.890 - Other specified postprocedural states (ICD-10) Previous back surgery ?Z98.890 - Other specified postprocedural states (ICD-10) H/O laminectomy ?Z98.890 - Other specified postprocedural states (ICD-10) Meds Home Medications and Allergies Home Medications ?Medication ?Instructions ?Recorded ?Confirmed ?Type gabapentin 600 mg tablet 600 mg PO TID 02/21/24 04/10/24 History buprenorphine 15 mcg/hour weekly 1 patch transdermal Q7D 04/10/24 04/10/24 History transdermal patch bupropion HCl 150 mg tablet,12 hr 150 mg PO BID 04/10/24 04/10/24 History sustained-release (Wellbutrin SR) diclofenac sodium 75 mg 75 mg PO Q12H 04/10/24 04/10/24 History tablet,delayed release fluoxetine 40 mg capsule (Prozac) 40 mg PO DAILY 04/10/24 04/10/24 History lisinopril 20 mg tablet 20 mg PO DAILY 04/10/24 04/10/24 History zonisamide 50 mg capsule 50 mg PO BEDTIME 04/10/24 04/10/24 History methocarbamol 500 mg tablet 500 mg PO TID PRN spasms 04/13/24 04/13/24 History Allergies Allergy/AdvReac Type Severity Reaction Status Date / Time No Known Drug Allergies Allergy Verified 02/23/24 13:48 Exam Constitutional Documenting provider has reviewed patient's vital signs: yes Common normals: oriented x3, alert and well nourished General appearance: cooperative and anxious; not disheveled and not lethargic [facility] Common normals: normocephalic, hearing grossly normal bilaterally and moist oral mucous membranes Head and scalp: normocephalic Eye Common normals: PERRL Pupil: PERRL Neck & C-Spine Common normals: full ROM General: normal visual inspection Chest Common normals: inspection of chest normal Respiratory Common normals: normal respiratory effort, no retractions and no use of accessory muscles Back & Pelvis Lumbar spine/lower back: ROM limited, pain with ROM, lumbar spinal tenderness, paraspinal muscle tenderness, paraspinal muscle spasm and straight leg raise positive right; no mass present, no lumbar scoliosis present and straight leg raise negative left Other: significant myofascial pain positive right SLR, altered sensation to right L4.5.S1 pattern strength 4/5 in RLE 5/5 in LLE Extremity Common normals: full ROM; abnormal to inspection Left lower extremity: ankle joint and foot and digits Other: edema to Left foot/ankle, acute onset no apparent cause muscle atrophy noted to RLE Neuro Common normals: oriented x3, CN's II-XII intact bilaterally, moves all extremities, no focal motor deficits, no sensory deficits noted and deep tendon reflexes 2+ bilaterally; gait abnormal Sensorium/orientation: alert Gait (neuro): antalgic Motor exam: no movement abnormalities noted Psych Common normals: mental status grossly normal, thought process normal, cooperative, affect normal, speech normal and activity/motor behavior normal Speech: normal speech Thought process: normal thought process Results Imaging Lumbar MRI: Attestation: I have reviewed the pertinent imaging results. Radiologist's impression: PARASPINAL AREA: Normal with no visible mass. BONES: 5 mm retrolisthesis of L5 on S1. 50% anterior wedge compression fracture of T12, chronic. Moderate diffuse degenerative spondylosis . Interval posterior decompression L3 and L4. Left hemilaminectomy L5 CORD/CAUDA EQUINA: Normal caliber, contour, and signal intensity. No abnormal postcontrast enhancement DISC LEVELS: 12-L1: Early degenerative disc disease is present without focal protrusion or neural impingement. L1-L2: No significant disc/facet abnormality, spinal stenosis, or foraminal stenosis. L2-L3: Disc space narrowing and desiccation. Posterior broad-based disc protrusion. No central or foraminal stenosis L3-L4: Disc desiccation and narrowing. Broad-based posterior disc herniation the protrusion type extending up to 4 mm. Ligamentum flavum hypertrophy and facet osteoarthropathy. Moderate trefoil narrowing of the central canal axial image 20. Moderate bilateral foraminal stenosis L4-L5: Disc space narrowing and disc desiccation. Left paracentral and lateral disc herniation of the protrusion type measuring up to 7.3 mm. Significant left central canal and lateral recess stenosis. Bilateral facet osteoarthropathy. Minimal right and severe left foraminal stenosis L5-S1: Disc collapse with endplate sclerosis. Grade 1, 5 mm retrolisthesis of L5 on S1. Mild to moderate diffuse disc/osteophyte complex. Additional Findings Additional findings: If on a controlled substance or opioids, I have checked an [place] report on this patient and there are no aberrancies noted in the prescribing history.??If on a controlled substance or opioid a drug screen was completed and reviewed within the last year, and if there has not been a drug screen completed we ordered one today to monitor higher risk, state monitored pain medication use. As part of providing excellent, safe, comprehensive care, the following was completed at our patient's visit: 1. A medication reconciliation and review to ensure accurate knowledge of current/active medications, including asking our patients to inform us about any [id number]-ilirzly medications or herbal remedies/nutritional supplements/alternative remedies. 2. A review to specifically ensure our patients have had annual screening for screening for depression, screening for tobacco use, and screening for unhealthy alcohol use. For concerning screenings had a discussion with the patient, provided patient education, and recommended follow-up with primary care provider when appropriate. If patient noted with a risk of falling, they received education on strength, gait, and balance training to prevent future risk of falling. Assessment and Plan Assessment and Plan (1) Lumbar radiculopathy: (2) Post laminectomy syndrome: (3) Chronic prescription opiate use: (4) Hypertension: Plan IMPRESSION: Our impression is patient appears to have chronic pain secondary to post laminectomy syndrome, complicated by right L4 radiculopathy and myofascial spasm with myalgia. RECOMMENDATIONS: I recommend he undergo a lumbosacral MRI using sedation, as the patient is unable to tolerate laying in the supine position and being still. Will also request an EMG nerve conduction velocity study of his right lower extremity. Patient declining increase in zonegran, initially denied side effects then later reported brain fog/loss of word recollection.stop baclofen start methocarbamol 500-1000mg TID PRN pain/spasms. EMG next week, pending lumbar MRI. upcoming NS appointment around 04/26. is not currently engaged in PT as there have been contraindications. TENS unit discussed and ordered for myofascial pain as well as muscle atrophy to RLE. UDS today for medication monitoring. Case reviewed with Dr Ruiz who recommends no additional medication changes at this time, will offer right L4-5 L5-S1 TFESI under fluoroscopy for lumbar radiculopathy unresponsive to medications and unable to attend PT due to severe pain and contraindications from NS. patient to f/u after TFESI complete with Dr Ruiz for further evaluation. would avoid TCAs SSRIs SNRIs and NSAIDs at this time due to current medications, uncontrolled BP, and edema to LLE. f/u with PCP regarding HTN and edema.
== END 2024-04-12 14:42 | disposition home or self-care (01) ==
LOC: PM 14:44
PROVIDERS: PCP Family Medicine; Visit Provider Nurse Practitioner
DX: M54.16 Radiculopathy, lumbar region (principal); M96.1 Postlaminectomy syndrome, not elsewhere classified; Z79.891 Long term (current) use of opiate analgesic; I10 Essential (primary) hypertension
CPT/HCPCS: G0463

== ENCOUNTER 2024-04-19 14:56 | Outpatient (RCR) | payer OTHER, SELFPAY | END 2024-06-30 16:47 | disposition home or self-care (01) | LOC: PT 14:56 | PROVIDERS: PCP Family Medicine; Visit Provider Family Medicine | DX: M54.16 Radiculopathy, lumbar region (principal); M80.80XD Other osteoporosis with current pathological fracture, unspecified site, subsequent encounter for fracture with routine healing; Z98.890 Other specified postprocedural states; M54.50 Low back pain, unspecified; M54.6 Pain in thoracic spine | CPT/HCPCS: 97110; 97113; 97162 ==

== ENCOUNTER 2024-04-24 13:28 | Outpatient (OUT) | payer OTHER, SELFPAY ==
--- NOTE | 2024-04-24 13:36 | XR_ITS ---
[address] [address] Patient Name: ENRRIQUE MADERA MRN: [id number] date: 1965 Sex: M Assigned Patient Location: [facility] Current Patient Location: [facility] Accession/Order Number: [id number] Exam Date: 04/24/2024 14:00 Report Date: 04/24/2024 16:05 At the request of: NON-STAFF PHYSICIAN Procedure: XR DEXA axial skeleton EXAMINATION: XR DEXA axial skeleton HISTORY: compression fracture of thoracic vertebrae COMPARISON: No relevant comparison available. TECHNIQUE: Dual-energy X-ray absorptiometry (DXA) was performed. FINDINGS: SPINE ANALYSIS: Average bone mineral density is 0.916 g/cm2. T-score (standard deviation relative to young adult mean): -2.5 . HIP ANALYSIS: Lowest bone mineral density is within the right femoral neck, 0.814 g/cm2. T-score (standard deviation relative to young adult mean): -2.0 . XR/XR DEXA axial skeleton IMPRESSION: World Health Organization Classification: Osteopenia - Moderate Fracture Risk FRAX: Cannot be calculated. Pharmacologic treatment recommendations * No uniform recommendation applies to all patients. Management plans must be individualized. * Consider initiating pharmacologic treatment in postmenopausal women and men >= 50 years of age who have the following: Primary fracture prevention: * T-score <= - 2.5 at the femoral neck, total hip, lumbar spine, 33% radius (some uncertainty with existing data) by DXA. * Low bone mass (osteopenia: T-score between - 1.0 and - 2.5) at the femoral neck or total hip by DXA with a 10-year hip fracture risk >= 3% or a 10-year major osteoporosis-related fracture risk >= 20% (i.e., clinical vertebral, hip, forearm, or proximal humerus) based on the [place]-adapted FRAXregistered model. Secondary fracture prevention: * Fracture of the hip or vertebra regardless of BMD [4, 5]. * Fracture of proximal humerus, pelvis, or distal forearm in persons with low bone mass (osteopenia: T-score between - 1.0 and - 2.5). The decision to treat should be individualized in persons with a fracture of the proximal humerus, pelvis, or distal forearm who do not have osteopenia or low BMD [12, 13]. Donn MS, Babatunde SL, Arvin KL, Pablo EM, Allen KG, AJ, William ES. The clinician's guide to prevention and treatment of osteoporosis. Osteoporos Int. 2021;33(10):1734-2312. doi: 10.1007/l26239-397-97772-r. Epub 2021Dec 10. Erratum in: Osteoporos Int. 2021Mar 11;: PMID: [id number]; PMCID: [id number]. Electronically authenticated by: ABHI MATA Date: 04/24/2024 16:05
== END 2024-04-24 13:29 | disposition home or self-care (01) ==
LOC: RAD 13:28
PROVIDERS: PCP Family Medicine
DX: S22.000A Wedge compression fracture of unspecified thoracic vertebra, initial encounter for closed fracture (principal); M85.80 Other specified disorders of bone density and structure, unspecified site
CPT/HCPCS: 77080

== ENCOUNTER 2024-04-27 12:41 | Outpatient (OUT) | payer OTHER, SELFPAY ==
--- NOTE | 2024-04-27 12:47 | MR_ITS ---
[address] [address] Patient Name: ENRRIQUE MADERA MRN: [facility]:[id number] date: 1965 Sex: M Assigned Patient Location: MRI Current Patient Location: MRI Accession/Order Number: [id number] Exam Date: 04/27/2024 13:00 Report Date: 04/27/2024 17:01 At the request of: NON-STAFF PHYSICIAN Procedure: MR cervical spine wo con EXAM: MRI of the cervical spine without IV contrast. REASON FOR EXAM: compression fracture of C7 COMPARISON: None FINDINGS: No acute or subacute cervical spine fractures, acute malalignment or acute abnormal marrow signal. No spinal canal mass, hematoma or fluid collection. No abnormal cord signal. Mild retrolisthesis of C3 on C4. Chronic C7 compression fracture with minimal height loss. Degenerative changes throughout the cervical spine with multilevel disc space narrowing, most evident at the C3-C4, C6-C7 and C7-T1 levels. Small posterior disc osteophyte complex at the C3-C4 level. C4-C5 posterior disc protrusion. Small C6-C7 and C7-T1 posterior disc osteophyte complexes. Mild spinal canal stenoses at the C3-C4, C4-C5, C5-C6 and C6-C7 levels. No other substantial spinal canal stenoses. Moderate to severe left C3-C4 neural foraminal stenosis. Mild to moderate right C3-C4 neural foraminal stenosis. Moderate right and mild left C4-C5 neural foraminal stenoses. Moderate bilateral C5-C6 neural foraminal stenoses. Moderate to severe bilateral C6-C7 neural foraminal stenoses. Remainder unremarkable. MR/MR cervical spine wo con IMPRESSION: 1. No acute cervical spine abnormalities. 2. Chronic C7 compression fracture with minimal height loss. 3. No moderate or high-grade spinal canal stenoses. 4. Moderate to severe left C3-C4 and bilateral C6-C7 neural foraminal stenoses. Electronically authenticated by: GRAY GREGG Date: 04/27/2024 17:01
--- NOTE | 2024-04-27 12:47 | MR_ITS ---
[address] [address] Patient Name: ENRRIQUE MADERA MRN: [facility]:[id number] date: 1965 Sex: M Assigned Patient Location: MRI Current Patient Location: MRI Accession/Order Number: [id number] Exam Date: 04/27/2024 13:00 Report Date: 04/27/2024 16:59 At the request of: NON-STAFF PHYSICIAN Procedure: MR thoracic spine wo con EXAM: MR thoracic spine wo con HISTORY: Spine fracture thoracic. COMPARISON: None. TECHNIQUE: MRI of the thoracic spine without contrast. Sequences obtained by standard department protocol. FINDINGS: Moderate degeneration of the lower cervical spine disc spaces. Multilevel mild posterior disc protrusions of the thoracic spine. Compression fracture at the T12 level with central vertebral body height loss, chronic, no acute edema at this level. No other acute fractures of the thoracic spine. Schmorl's node at the superior endplate of T11. No significant neural foraminal narrowing. No spinal canal narrowing. MR/MR thoracic spine wo con IMPRESSION: 1. No acute fractures. 2. Chronic compression fracture at T12 with high-grade central vertebral body height loss. No acute bone marrow edema at this level. 3. No spinal canal stenosis. No significant neural foraminal narrowing. Electronically authenticated by: DAKOTAH SCHMITZ Date: 04/27/2024 16:59
--- OUTSIDE RECORDS SUMMARY | 2024-04-27 13:02 | XMS_ITS | CCD ---
Author Organization [facility] Care Team Providers Care Maintenance Advisor Name Role Phone BERNARD SIMEON Unavailable Unavailable PANFILO WILSON Unavailable Unavailabl e DR KAYLIE JACOBO Primary Care Unavailable CONSUELO SINGH Attending Unavailable CONSUELO SINGH Consulting Unavailable CONSUELO SINGH Admitting Unavailable MD Carole Jensen Attending Provider MD Bernard Simeon Primary Care Provider [phone] Carole Jensen Unavailable [phone] MD Bernard Simeon Primary Care Provider [phone] ZACHARY Galan Attending Provider Adama Melissa Unavailable Bernard Simeon Primary Care Unavailable Carole Jensen Admitting Unavaila ble MikeyCarole villagomez Attending Unavaila ble Bernard Simeon Primary Care Unavailable Carole Jensen Admitting Unavaila ble MikeyCarole villagomez Attending Unavaila ble Melissa Galan Admitting Unavailable Melissa Galan Attending Unavailable Bernard Simeon Primary Care Unavailable Leon Munoz DO Primary Care Provider WENDY PADRON Referring Unavailable LEON MUNOZ Primary Care Unavailable WENDY PADRON Referring Unavailable LEON MUNOZ Primary Care Unavailable BERNARD SIMEON Referring Unavailable LEON MUNOZ Primary Care Unavailable WENDY PADRON Attending Unavailable PANFILO CHILDRESS Attending Unavailable LEON MUNOZ Referring Unavailable LEON MUNOZ Primary Care Unavailable Damian Hathaway MD Primary Care Provider [phone] Jacinto Olmos MD Attending Shaila Gutierres APRN-Neris JEAN Attending Jacinto Sevilla MD Attending Shaila Gutierres APRN-MIRANDA, Neris Werner Attending Maxx Olmos MD, Jacinto Dai Attending Shaila Olmos MD, Jacinto Dai Attending Shaila Olmos MD, Jacinto Dai Attending Shaila Gutierres APRN-CLEANING SPECIALIST, Neris Werner Attending Maxx Olmos MD, Jacinto Dai Attending Shaila WALDRON, Neris Werner Attending U KISHORE Hernandez Admitting Unavailable JACKIE KEITA Attending Unavailable HOY, DAMIAN M Primary Care Unavailable HOY, DAMIAN M Primary Care Unavailable HSIA, ALISON T Attending Unavailable HOY, DAMIAN M Primary Care Unavailable PACENTA, KIAN Attending Unavailable HOY, DAMIAN M Primary Care Unavailable HSIA, ALISON T Referring Unavailable HOY, DAMIAN M Primary Care Unavailable CAROLE CLAYTON Attending Unavailable LAKDANNY, SHAMIRENDSASHA Referring Unava ilMICHAEL Hays Attending Unavailable VIOLETA BLACK Attending Unavailable PACENTA, KIAN Referring Unavailable HOY, DAMIAN M Primary Care Unavailable PACENTA, KIAN Referring Unavailable HOY, DAMIAN M Primary Care Unavailable CIELO, LUL K Admitting Unavailable CIELO, LUL K Attending Unavailable HOY, DAMIAN M Primary Care Unavailable HOUSE, LEON P Primary Care Unavailable Cranston, Neris M Attending Unavailable Cranston, Neris M Admitting Unavailable HOUSE, LEON P Primary Care Unavailable Cranston, Neris M Admitting Unavailable Cranston, Neris M Attending Unavailable HOUSE, LEON P Primary Care Unavailable Cranston, Neris M Admitting Unavailable Cranston, Neris M Attending Unavailable HOUSE, LEON P Primary Care Unavailable Cranston, Neris M Attending Unavailable Cranston, Neris M Admitting Unavailable JACINTO OLMOS Attending Unavailable TAMMY, LEON P Primary Care Unavailable JACINTO OLMOS Admitting Unavailable TAMMY, LEON P Primary Care Unavailable Wendy Gray Attending Wendy Enriquez Admitting Unavai anjel MUNOZ, LEON P Primary Care Unavailable Cranston, Neris M Admitting Unavailable Cranston, Neris M Attending Unavailable TAMMY, DO QUINONEZ P Attending Unavailable TAMMY, LEON P Primary Care Unavailable JACINTO OLMOS Attending Unavailable HOUSE, LEON P Primary Care Unavailable KINDL, JACINTO F Admitting Unavailable KINDL, JACINTO F Attending Unavailable HOUSE, LEON P Primary Care Unavailable KINDL, JACINTO F Admitting Unavailable KINDL, JACINTO F Attending Unavailable KINDL, JACINTO F Admitting Unavailable HOUSE, LEON P Primary Care Unavailable KINDL, JACINTO F Attending Unavailable HOUSE, LEON P Primary Care Unavailable KINDL, JACINTO F Admitting Unavailable HOUSE, LEON P Primary Care Unavailable Cranston, Neris M Admitting Unavailable Cranston, Neris M Attending Unavailable HOUSE, DO LEON P Admitting Unavailable HOUSE, LEON P Primary Care Unavailable HOUSE, DO LEON P Attending Unavailable HOUSE, LEON P Primary Care Unavailable Cranston, Neris M Admitting Unavailable Cranston, Neris M Attending Unavailable KINDL, JACINTO F Attending Unavailable HOUSE, LEON P Primary Care Unavailable KINDL, JACINTO F Admitting Unavailable HOUSE, DO LEON P Attending Unavailable HOUSE, LEON P Primary Care Unavailable HOUSE, DO LEON P Attending Unavailable Paty QUISPE, Bernard G Primary Care Unavailable Paty QUISPE, Bernard Echavarria Primary Care Unavailable Paty QUISPE, Bernard Echavarria Attending Unavailable HOUSE, LEON P Primary Care Unavailable Cranston, Neris M Admitting Unavailable Cranston, Neris Mcfarlane Attending Unavailable Paty QUISPE, Bernard Echavarria Primary Care Unavailable Paty QUISPE, Bernard Echavarria Attending Unavailable HOUSE, LEON P Primary Care Unavailable Cranston, Neris M Attending Unavailable Cranston, Neris M Admitting Unavailable NILL, Jourdan R Attending Unavailable Damian Hathaway Referring Unavailable NILL, Jourdan Merlos Attending Unavailable Allergies Allergy Classification Reported Allergen(s) Allergy Type Date of Onset Reaction(s) Facility (4 sources) Other; Translations: [OTHER] Propensity to adverse reactions 3 Other (See Comments) [facility] (12 sources) oxyCODONE; Translations: [OXYCODONE] Drug Allergy 3 Unknown [facility] Work Phone: (1 source) narcotic analgesics; Translations: [narcotic analgesics] Propensity to adverse reactions to drug (disorder) [facility] Repository Medications Current Medications Medication Drug Class(es) Dates Sig (Normalized) Sig (Original) acetaminophen 500 mg oral tablet (4 sources) Start: 03-23-2024 End: 03-30-2024 take 2 tablets by mouth every eight hours acetaminophen (TYLENOL) 500 mg tablet Take 2 tablets by mouth every 8 hours for 7 days. 42 tablet 0 03/23/2024 03/30/2024 Active ALPRAZolam 0.25 mg oral tablet (1 source) Benzodiazepine Start: 04-20-2024 End: 06-08-2024 ALPRAZolam (XANAX) 0.25 mg tablet Indications: Claustrophobia take 1 hour prior to mri. 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 02/24/2024 Active Start: 02-24-2024 BUTRANS 5 mcg/ hour Apply as directed. 0 02/24/2024 Active 12 hr buPROPion hydrochloride 150 mg extended release oral tablet (14 sources) Aminoketone take 1 tablet by mouth twice daily buPROPion SR (WELLBUTRIN SR) 150 mg 12 hr tablet Take 150 mg by mouth two times a day. Active take 1 tablet by mana once daily in the morning buPROPion (WELLBUTRIN) 100 mg tablet Rusty e 1 tablet (100 mg total) by mouth every morning. 0 Active buPROPion HBr ER Active twice-daily diclofenac epolamine 0.013 mg/mg medicated patch (16 sources) Nonsteroidal Anti-inflammatory Drug Start: 03-23-2024 End: 03-31-2024 apply 1 dose topically twice daily diclofenac (FLECTOR) 1.3 % topical patch Apply 1 Patch as directed two times a day for 7 days. 30 Patch 0 03/23/2024 03/31/2024 Active Start: 08-02-2023 take 1 tablet by mana th twice daily diclofenac, EC, (VOLTAREN) 75 mg EC tablet Take 75 mg by mouth two times a day. 08/02/2023 Active FLUoxetine 20 mg oral capsule (14 sources) Serotonin Reuptake Inhibitor take 2 capsules by mouth once daily FLUoxetine (PROZAC) 20 mg capsule Take 40 mg by mouth once daily. Active FLUoxetine (PROZ AC) 10 mg capsule Take 10 mg by mouth. 0 Active take 1 capsule by mo [facility] every twenty-four hours FLUoxetine HCl 20 MG 1 capsule Orally On ce a day Active take 1 capsule by mouth once cornelius ly FLUoxetine HCl 20 MG 1 capsule Orally Once a day Active gabapentin 600 mg oral tablet (5 sources) Anti-epileptic Agent Start: 02-14-2024 End: 03-15-2024 gabapentin (NEURONTIN) 600 mg tablet 600 mg. 0 02/14/2024 03/15/2024 Active Start: 05-20-2023 take 1 capsule by [facility] three times daily gabapentin (NEURONTIN) 300 mg capsule Indications: neuropathic pain Take 1 capsule (300 mg total) by mouth 3 (three) times a day Indications: neuropathic pain. 0 05/20/2023 Active hydroCHLOROthiazide 25 mg / lisinopril 20 mg oral tablet (3 sources) Thiazide Diuretic, Angiotensin Converting Enzyme Inhibitor take 1 tablet by mouth once daily lisinopril-hydroCHLOROthiazide (ZESTORETIC) 20-25 mg per tablet Take 1 tablet by mouth once daily. 0 Active lisinopril 20 mg oral tablet (7 sources) Angiotensin Converting Enzyme Inhibitor Star t: 03-15 0 End: 05-04 24 take 1 tablet by mouth once daily lisinopril (ZESTRIL) 20 mg tablet Take 1 tablet by mouth once daily. 30 tablet 03/24/2024 Active methocarbamol 750 mg oral tablet (9 sources) Muscle Relaxant Star t: 03-15 End: 03-15 24 take 1 tablet by mouth three times daily methocarbamol (ROBAXIN) 750 mg tablet Take 1 tablet by mouth three times a day for 3 days. Patient should start on March 28, 2024. 9 tablet 0 03/28/2024 03/31/2024 Active Start: 03-23-2024 End: 03-27-2024 take 2 tablets by mouth every six hours as needed methocarbamol (ROBAXIN) 500 mg tablet Take 2 tablets by mouth four times a day as needed for up to 4 days. 32 tablet 0 03/23/2024 03/27/2024 Active Start: 07-27-2023 methocarbamoL (ROBAXIN) 500 mg tablet [...] opioid reversal. 1 each 0 07/27/2023 Active naloxone 4 mg/actuation nasal spray (NARCAN) (10 sources) Start: 07-27-2023 take 4 mg nasal route every twenty-four hours as needed naloxone 4 mg/actuation nasal spray (NARCAN) Use 4 mg in the nose at bedtime as needed. 07/27/2023 Active Start: 07-27-2023 take [address] mg nasal rout e every twenty-four hours as needed naloxone 4 mg/actuation nasal spray (NARCAN) Use 4 mg in the nose at bedtime as needed. 0 07/27/2023 Active omeprazole 40 mg delayed release oral capsule (9 sources) Proton Pump Inhibitor take 1 capsule by mouth once daily as needed omeprazole (PRILOSEC) 40 mg capsule Take 40 mg by mouth once daily as needed. Active take 1 capsule by [facility] once daily before breakfast omeprazole (PriLOSEC) 20 mg capsule Indications: gastroesophageal reflux disease Take 1 capsule (20 mg total) by mouth every morning before breakfast Indications: gastroesophageal reflux disease. 0 Active oxyCODONE hydrochloride 5 mg oral tablet (4 sources) Opioid Agonist Start: 03-23-2024 End: 03-30-2024 take 1 tablet by mouth every six hours as needed oxyCODONE IR (ROXICODONE) 5 mg immediate release tablet Indications: Acute on chronic back pain Take 1 tablet by mouth every 6 hours as needed for up to 7 days. 28 tablet 0 03/23/2024 03/30/2024 Active polyethylene glycol 3350 07885 mg powder for oral solution (6 sources) Osmotic Laxative Start: 03-23-2024 End: 04-22-2024 polyethylene glycol 3350 17 gram packet Take 1 Packet by mouth two times a day. Dissolve dose in 4 - 8 ounces of liquid and take as directed. 60 Packet 03/23/2024 04/22/2024 Active pregabalin 200 mg oral capsule (7 sources) Start: 03-24-2024 End: 04-23-2024 take 1 capsule by mouth three times daily Pregabalin (LYRICA) 200 mg capsule Indications: Acute on chronic low back pain Take 1 capsule by mouth three times a day for 30 days. 90 capsule 03/24/2024 Active sennosides, half-way 8.6 mg oral tablet (6 sources) Start: 03-23-2024 End: 04-22-2024 take 1 tablet by mouth twice daily senna (SENOKOT) 8.6 mg tab Take 1 tablet by mouth two times a day. 60 tablet 03/23/2024 04/22/2024 Active sildenafil 20 mg oral tablet (14 sources) Phosphodiesterase 5 Inhibitor Start: 11-19-2023 take 2-3 tablets by mouth once daily as needed sildenafil (REVATIO) 20 mg tablet 2 TO 3 TABLETS, Oral, Daily, PRN: NEEDED, # 90 tab(s), 1 Refill(s), Pharmacy: [id number], TAKE 2 TO 3 TABLETS BY MOUTH ONCE DAILY NEEDED, 182.88, cm, 12/16/23 6:36:00 EDT, Height, 89.3, kg, 12/16/23 6:42:00 EDT, Weight Dosing 11/19/2023 Active take 1 tablet by mana th once daily as needed sildenafiL, pulm.hypertension, (REVATIO) 20 mg tablet TAKE 2 TO 3 TABLETS BY MOUTH ONCE DAILY NEEDED 0 Active tamsulosin hydrochloride 0.4 mg oral capsule (7 sources) alpha-Adrenergic Luz Marina Start: 03-23-2024 End: 04-22-2024 take 1 capsule by mouth once daily at bedtime tamsulosin (FLOMAX) 0.4 mg Take 1 capsule by mouth daily at bedtime. 30 capsule 03/23/2024 Active traMADol hydrochloride 50 mg oral tablet [...] sialoadenitis; Translations: [Acute sialoadenitis] Onset: 01-08-2018 Episodic Esophageal disorders (10 sources) Gastroesophageal reflux disease without esophagitis; Translations: [Gastro-esophageal reflux disease without esophagitis] Onset: 03-01-2024 Resolved: 03-01-2024 03-01-2024 Chronic Essential hypertension (10 sources) Hypertensive disorder; Translations: [Essential (primary) hypertension] Onset: 03-01-2024 Resolved: 03-01-2024 03-01-2024 Chronic Other connective tissue disease (3 sources) Other symptoms and signs involving the musculoskeletal system; Translations: [Other musculoskeletal symptoms referable to limbs] Onset: 09-06-2023 09-06-2023 Episodic Other connective tissue disease (1 source) Muscle wasting and atrophy, not elsewhere classified, right thigh; Translations: [Atrophy of muscle of right thigh] Onset: 03-19-2024 Episodic Other fractures (1 source) Compression fracture of thoracic spine; Translations: [Wedge compression fracture of unspecified thoracic vertebra, initial encounter for closed fracture] 04-11-2024 Episodic Other fractures (1 source) Closed fracture thoracic vertebra; Translations: [Other fracture of unspecified thoracic vertebra, initial encounter for closed fracture] 04-11-2024 Episodic Other fractures (1 source) Wedge compression fracture of unspecified thoracic vertebra, initial encounter for closed fracture; Translations: [Compression fracture of body of thoracic vertebra (HCC)] Onset: 04-11-2024 Episodic Other fractures (1 source) Wedge compression fracture of T11-T12 vertebra, initial encounter for closed fracture; Translations: [Compression fracture of T12 vertebra, initial encounter (HCC)] Onset: 03-19-2024 Episodic Other nervous system disorders (3 sources) Circadian rhythm sleep disorder of shift work type; Translations: [Circadian rhythm sleep disorder, shift work type] 03-15-2024 Chronic Other nervous system disorders (2 sources) Circadian rhythm sleep disorder, shift work type; Translations: [Circadian rhythm sleep disorder, shift work type] Chronic Other nervous system disorders (10 sources) Chronic pain; Translations: [Other chronic pain] Onset: 03-01-2024 Resolved: 03-01-2024 03-01-2024 Chronic Other nervous system disorders (2 sources) Other chronic pain; Translations: [Chronic low back pain, unspecified back pain laterality, unspecified whether sciatica present] Onset: 03-19-2024 Chronic Other nervous system disorders (1 source) Other disturbances of skin sensation; Translations: [Decreased sensation of leg] Onset: 03-19-2024 Episodic Other upper respiratory disease (1 source) Other specified disorders of nose and nasal sinuses; Translations: [OTH SPEC D/O NOSE NASAL SINUSES] Onset: 08-24-2021 Episodic Pathological fracture (5 sources) Osteoporosis; Translations: [Other osteoporosis with current pathological fracture, unspecified site, initial encounter for fracture] Onset: 03-26-2024 03-26-2024 Episodic Residual codes; unclassified (11 sources) Obstructive sleep apnea syndrome; Translations: [Obstructive sleep apnea (adult) (pediatric)] Onset: 03-19-2024 03-15-2024 Chronic Residual codes; unclassified (3 sources) Obstructive sleep apnea (adult) (pediatric); Translations: [Obstructive sleep apnea (adult)(pediatric)] Chronic Residual codes; unclassified (1 source) Obstructive sleep apnea (adult)(pediatric); Translations: [Obstructive sleep apnea (adult) (pediatric)] Onset: 09-08-2022 Chronic Residual codes; unclassified (3 sources) History of lumbar laminectomy; Translations: [Other specified postprocedural states] 09-06-2023 Episodic Residual codes; unclassified (1 source) Cognitive perceptual pattern; Translations: [Unspecified symptoms and signs involving general sensations and perceptions] 09-06-2023 Episodic Residual codes; unclassified (4 sources) Other specified postprocedural states; Translations: [Other specified postprocedural states] Onset: 09-06-2023 Episodic Residual codes; unclassified (1 source) Unspecified symptoms and signs involving general sensations and perceptions; Translations: [Unspecified symptoms and signs involving general sensations and perceptions] Onset: 09-06-2023 Episodic Residual codes; unclassified (3 sources) History of operative procedure on lumbar spinal structure; Translations: [Other specified postprocedural states] 03-01-2024 Episodic Spondylosis; intervertebral disc disorders; other back problems (1 source) Degeneration of lumbosacral intervertebral disc; Translations: [Other intervertebral disc degeneration, lumbosacral region] 02-10-2024 Chronic Spondylosis; intervertebral disc disorders; other back problems (20 sources) Lumbar radiculopathy; Translations: [Radiculopathy, lumbar region] Onset: 03-17-2014 Resolved: 03-23-2024 09-06-2023 Episodic Unclassified (3 sources) CONTACT W/AND (SUSP) EXPOS COVID-19; Translations: [CONTACT W/AND (SUSP) EXPOS COVID-19] Onset: 08-24-2021 Unclassified (1 source) Chronic low back pain, unspecified back pain laterality, unspecified whether sciatica present; Translations: [Chronic low back pain, unspecified back pain laterality, unspecified whether sciatica present] Onset: 03-19-2024 Past or Other Problems Problem Classification Problem Date Documented Da te Episodic/Chronic Fluid and electrolyte disorders (14 sources) Hypokalemia; Translations: [Hypokalemia] Onset: 03-20-2024 Resolved: 03-23-2024 03-23-2024 Episodic Genitourinary symptoms and ill-defined conditions (7 sources) Retention of urine; Translations: [Retention of urine, unspecified] Onset: 03-22-2024 Resolved: 03-23-2024 03-23-2024 Episodic Mood disorders (10 sources) Depressive disorder; Translations: [Depressive disorder] Onset: 03-01-2024 Resolved: 03-01-2024 03-01-2024 Chronic Mood disorders (2 sources) Mood disorders Onset: 07-25-2023 07-25-2023 Other bone disease and musculoskeletal deformities (12 sources) Chondromalacia; 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, right knee] Onset: 09-09-2020 Resolved: 03-01-2024 09-09-2020 Episodic Other fractures (10 sources) Fracture of twelfth thoracic vertebra; Translations: [Stable burst fracture of T11-T12 vertebra, initial encounter for closed fracture] Onset: 03-17-2014 Resolved: 03-01-2024 03-01-2024 Episodic Other fractures (8 sources) Fracture of seventh cervical vertebra; Translations: [Unspecified displaced fracture of seventh cervical vertebra, initial encounter for closed fracture] Onset: 03-17-2014 03-19-2024 Episodic Other fractures (7 sources) Compression fracture of vertebral column; Translations: [Collapsed vertebra, not elsewhere classified, site unspecified, initial encounter for fracture] Onset: 03-17-2014 03-19-2024 Episodic Other male genital disorders (10 sources) Erectile dysfunction co-occurrent and due to arterial insufficiency; Translations: [Erectile dysfunction due to arterial insufficiency] Onset: 03-01-2024 Resolved: 03-01-2024 03-01-2024 Chronic Other nervous system disorders (10 sources) Carpal tunnel syndrome of right wrist; Translations: [Carpal tunnel syndrome, right upper limb] Onset: 01-26-2023 Resolved: 03-01-2024 03-01-2024 Chronic Unclassified (1 source) CONTACT W/AND (SUSP) EXPOS COVID-19; Translations: [CONTACT W/AND (SUSP) EXPOS COVID-19] Onset: 08-19-2021 Results Test Name Value Interpretation Reference Range Facility Outside Recordson 04-24-2024 Outside Records [id number] [facility] HISTORY PHYSICALon HISTORY PHYSICAL HNO ID: [id number] Author: LUL BRADSHAW MD Service: ? Author Type: Physician Type: H&P Filed: 04/23/2024 07:24 Note Text: PROCEDURAL SEDATION HISTORY AND PHYSICAL EXAM SERVICE DATE: 04/23/2024 SERVICE TIME: 7:24 AM Subjective HPI: This is a 58 year old male who presents with back and leg pain PAST ANESTHESIA HISTORY: No history of adverse event PAST MEDICAL HISTORY 03/17/2014: Burst fracture of T12 vertebra (HCC) 01/26/2023: Carpal tunnel syndrome of right wrist 09/09/2020: Chondromalacia of right knee Comment: Added automatically from request for surgery [id number] 03/01/2024: Chronic pain 03/01/2024: Depressive disorder 03/01/2024: Erectile dysfunction due to arterial insufficiency 03/01/2024: GERD without esophagitis 03/01/2024: HTN (hypertension) 03/17/2014: Low back pain 03/19/2024: BRADY (obstructive sleep apnea) No past surgical history on file. Prior to Admission medications as of 04/23/24 0629 Medication Sig Last Dose Taking ALPRAZolam (XANAX) 0.25 mg tablet take 1 hour prior to mri. 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 04/22/2024 Yes tamsulosin (FLOMAX) 0.4 mg Take 1 capsule by mouth daily at bedtime. Past Week Yes omeprazole (PRILOSEC) 40 mg capsule Take 40 mg by mouth once daily as needed. 04/22/2024 Yes buprenorphine (BUTRANS) 15 mcg/hour patch Apply 1 Patch as directed one time a week. 04/23/2024 Yes buPROPion SR (WELLBUTRIN SR) 150 mg 12 hr tablet Take 150 mg by mouth two times a day. 04/22/2024 Yes FLUoxetine (PROZAC) 20 mg capsule Take 40 mg by mouth once daily. 04/22/2024 Yes naloxone 4 mg/actuation nasal spray (NARCAN) Use 4 mg in the nose at bedtime as needed. Unknown Yes sildenafil (REVATIO) 20 mg tablet 2 TO 3 TABLETS, Oral, Daily, PRN: NEEDED, # 90 tab(s), 1 Refill(s), Pharmacy: [id number], TAKE 2 TO 3 TABLETS BY MOUTH ONCE DAILY NEEDED, 182.88, cm, 12/16/23 6:36:00 EDT, Height, 89.3, kg, 12/16/23 6:42:00 EDT, Weight Dosing Unknown Yes Pregabalin (LYRICA) 200 mg capsule Take 1 capsule by mouth three times a day for 30 days. diclofenac, EC, (VOLTAREN) 75 mg EC tablet Take 75 mg by mouth two times a day. ALLERGIES Allergen Reactions Oxycodone Unknown Other Reaction(s): addiction/former addict. Agreeable to use during acute pain episode hospitalization Objective PHYSICAL EXAM: The remainder of the physical exam is noncontributory. AIRWAY: Airway Visualization of Uvula: Yes Mouth opening greater than 2 fingerbreadths: Yes Neck Full Range of Motion: Yes LUNGS: Lungs clear to auscultation CARDIAC: Regular rhythm,Regular rate Assessment/Plan ASA Class: ASA Class: Patient with mild systemic disease Active Problems: * No active hospital problems. * Resolved Problems: * No resolved hospital problems. * Medication and Non-Pharmacologic VTE Prophylaxis/Anticoagulants VTE Prophylaxis: VTE prophylaxis appropriate Provisional Diagnosis/Treatment Plan: transforaminal epidural steroid injection Sedation Goal: Moderate SIGNATURE: Lul Bradshaw MD PATIENT NAME: Enrrique Madera DATE: April 23, 2024 TIME: 7:23 AM Normal [facility] OPERATIVE NOon 04-23-2024 OPERATIVE NO HNO ID: [id number] Author: LUL BRADSHAW MD Service: ? Author Type: Physician Type: Operative Report Filed: 04/23/2024 15:37 Note Text: OPERATIVE/PROCEDURE REPORT LOG ID: [id number] Surgery/Procedure Date: 04/23/2024 Surgeon: Lul Bradshaw MD Airset Caster: none Procedure(s):Operation: right L3-L4 Transforaminal epidural steroid injection. Pre-Op/Pre-Procedure Diagnosis: Lumbosacral neuritis Post-Op Diagnosis: same Anesthesia: Local 0mg of IV versed was used with 4 min of intraservice monitoring time. Fluoroscopy time: 37.9 sec Time In: 07:44 am Time out: 07:48 am Estimated Blood Loss: None Specimens: None Drains: None Complications: None INDICATIONS: The patient has been referred by my colleague Dr Black with concordant subjective, objective, and radiologic findings of Lumbar radiculitis, referred for diagnostic and therapeutic right L3-L4 Transforaminal epidural steroid injection with failure of prior conservative care with physical therapy and medications alone. At this time, the patient wishes to avoid surgery. This is the patient's 1st injection under my care. -notes new right thigh atrophy in last few months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 level of the iliac crest and assume there are 5 lumbar-type vertebrae. Anatomic variant: None. Civil Engineering Design Draftsperson (topogram) images: Unremarkable. Alignment: Trace degenerative lateral listhesis L3 over L4 causing mild levocurvature of the lumbar spine. Trace degenerative retrolisthesis L5 over S1. Bone marrow /fracture: Status post laminectomy at L3-L4 and L5. Partially imaged chronic T12 compression fracture with presumed kyphoplasty material. Vertebral body heights of the lumbar spine are maintained. Degenerative cystic endplate changes at L5. Paraspinal soft tissues: The paraspinal soft tissues planes are maintained. Lower thoracic spine: The visualized lower thoracic bony canal and foramina are patent. L1-L2: Canal and foramina are patent. L2-L3: Diffuse disc bulge and posterior element hypertrophy causing mild spinal canal stenosis and mild bilateral neuroforaminal stenosis. L3-L4: Diffuse disc bulge and posterior element hypertrophy causing causing moderate to severe bilateral neuroforaminal stenosis. The spinal canal is decompressed at this level. L4-L5: Diffuse disc bulge with superimposed left subarticular disc extrusion likely impingement of the L5 descending nerve roots. Posterior element hypertrophy contributing to moderate to severe left neuroforaminal stenosis and moderate right. The spinal canal is decompressed at this level. L5-S1: Diffuse disc bulge and posterior element hypertrophy causing causing moderate bilateral neuroforaminal stenosis. The spinal canal is decompressed at this level. Sacrum and iliac wings: The visualized sacrum and iliac wings are within normal limits. Sclerotic focus in the right ilium likely represents a bone island. Degenerative cystic changes in the iliac side of the left SI joint. IMPRESSION: Lumbar spondylosis as described. Left subarticular disc extrusion at L4-L5 likely impinging on the left L5 descending nerve roots. Overall similar appearance to limited imaging from 03/19/2024. Anatomic Lumbar Variant: None. L4-5 is considered the level of the iliac crest and assume there are 5 lumbar-type vertebrae. Monologist: [facility] Transcribe Date/Time: Mar 23 2024 11:38A Dictated by : AYDEN KUMARI MD This examination was interpreted and the report reviewed and electronically signed by: BERNARD CARRINGTON MD on Mar 23 2024 12:30PM EST [id number] Normal [facility] Magnesium SerPl-mCncon 03-23 Magnesium [Mass/Vol] 2.1 mg/dL Normal 1.7-2.3 [facility] Comment on above: Order Comment: Speci men Type: BLOOD SPECIMENOrdering Facility: [facility] Address: [address] [place] [address] Performed By: #### 1 9123-9 ####[facility] LABCLIA [id number] [place] [address] [place] Basic metabolic 2000 panelon 03-22-2024 Anion gap [Moles/Vol] 8 mmol/L Normal 8-15 [facility] Comment on above: Order Comment: Speci men Type: BLOOD SPECIMENOrdering Facility: [facility] Address: [address] [place] [address] Performed By: #### 2 4321-2 ####[facility] LABCLIA [id number] [address] [address] [place] Calcium [Mass/Vol] 8.8 mg/dL Normal 8.5-10.2 [facility] Comment on above: Order Comment: Speci men Type: BLOOD SPECIMENOrdering Facility: [facility] Address: [address] [place] [address] Performed By: #### 2 4321-2 ####[facility] LABCLIA [id number] [place] [address] [place] Chloride [Moles/Vol] 100 mmol/L Normal 98-107 [facility] Comment on above: Order Comment: Speci men Type: BLOOD SPECIMENOrdering Facility: [facility] Address: [address] [place] [address] Performed By: #### 2 4321-2 ####[facility] LABCLIA [id number] [place] [address] [place] CO2 [Moles/Vol] 25 mmol/L Normal 22-30 [facility] Comment on above: Order Comment: Speci men Type: BLOOD SPECIMENOrdering Facility: [facility] Address: [address] [place], [place] [address] Performed By: #### 2 4321-2 ####[facility] LABCLIA [id number] [place] [address] [place] Creatinine [Mass/Vol] 0.85 mg/dL Normal 0.73-1.22 [facility] Comment on above: Order Comment: Speci men Type: BLOOD SPECIMENOrdering Facility: [facility] Address: [address] [place], [place] [address] Performed By: #### 2 4321-2 ####[facility] LABCLIA [id number] [place] [id number] [place] Creatinine and Glomerular filtration rate.predicted panel (S/P/Bld) 101 mL/min/1.73m??? Normal >=60 [facility] Comment on above: Order Comment: Rosalie best Type: BLOOD SPECIMENOrdering Facility: [facility] Address: [address] [place] [address] Result Comment: Lia mated Glomerular Filtration Rate (eGFR) is calculated using the 2020 CKD-EPI creatinine equation. This equation utilizes serum creatinine, sex, and age as parameters. The creatinine assay has traceable calibration to isotope dilution-mass spectrometry. Refer to KDIGO guidelines for clinical interpretation. In patients with unstable renal function, e.g. those with acute kidney injury, the eGFR may not accurately reflect actual GFR. Performed By: #### 2 4321-2 ####[facility] LABCLIA [id number] [place] [address] [place] Glucose [Mass/Vol] 103 mg/dL High 74-99 [facility] Comment on above: Order Comment: Rosalie best Type: BLOOD SPECIMENOrdering Facility: [facility] Address: [address] [place] [address] Result Comment: The [place] Diabetes Association (ADA) provides guidance for cutoff values for fasting glucose and random glucose. The ADA defines fasting as no caloric intake for at least 8 hours. Fasting plasma glucose results between 100 to 125 mg/dL indicate increased risk for diabetes (prediabetes). Fasting plasma glucose results greater than or equal to 126 mg/dL meet the criteria for diagnosis of diabetes. In the absence of unequivocal hyperglycemia, results should be confirmed by repeat testing. In a patient with classic symptoms of hyperglycemia or hyperglycemic crisis, random plasma glucose results greater than or equal to 200 mg/dL meet the criteria for diagnosis of diabetes. Reference: Standards of Medical Care in Diabetes 2016, [place] Diabetes Association. Diabetes Care. 2016.39(Suppl 1). Performed By: #### 2 4321-2 ####[facility] LABIA [id number] [place] [address] [place] Potassium [Moles/Vol] 4.5 mmol/L Normal 3.7-5.1 [facility] Comment on above: Order Comment: Speci men Type: BLOOD SPECIMENOrdering Facility: [facility] Address: [address] [place] [id number] Performed By: #### 2 4321-2 ####[facility] LABCLIA [id number] [place] [address] [place] Sodium [Moles/Vol] 133 mmol/L Low 136-144 [facility] Comment on above: Order Comment: Speci men Type: BLOOD SPECIMENOrdering Facility: [facility] Address: [address] [place], [place] [address] Performed By: #### 2 4321-2 ####[facility] LABCLIA [id number] [place] [address] [place] Urea nitrogen [Mass/Vol] 12 mg/dL Normal 9-24 [facility] Comment on above: Order Comment: Speci men Type: BLOOD SPECIMENOrdering Facility: [facility] Address: [address] [place], [place] [address] Performed By: #### 2 4321-2 ####[facility] LABCLIA [id number] [place] [address] [place] Anion gap [Moles/Vol] 10 mmol/L Normal 8-15 [facility] Comment on above: Order Comment: Speci men Type: BLOOD SPECIMEN [facility] Address: [address] [place], [place] [address] Performed By: #### 2 4321-2 #### [facility] CLIA [id number] [address] [address] [place] Calcium [Mass/Vol] 8.6 mg/dL Normal 8.5-10.2 [facility] Comment on above: Order Comment: Speci men Type: BLOOD SPECIMEN [facility] Address: [address] [place], [place] [address] Performed By: #### 2 4321-2 #### [facility] CLIA [id number] [address] [place] [address] [place] Chloride [Moles/Vol] 100 mmol/L Normal 98-107 [facility] Comment on above: Order Comment: Speci men Type: BLOOD SPECIMEN [facility] Address: [address] [place] [address] Performed By: #### 2 4321-2 #### [facility] CLIA [id number] [address] [place] [address] [place] CO2 [Moles/Vol] 25 mmol/L Normal 22-30 [facility] Comment on above: Order Comment: Speci men Type: BLOOD SPECIMEN [facility] Address: [address] [place] [address] Performed By: #### 2 4321-2 #### [facility] CLIA [id number] [address] [place] [address] [place] Creatinine [Mass/Vol] 0.78 mg/dL Normal 0.73-1.22 [facility] Comment on above: Order Comment: Speci men Type: BLOOD SPECIMEN [facility] Address: [address] [place] [address] Performed By: #### 2 4321-2 #### [facility] CLIA [id number] [address] [place] [address] [place] Creatinine and Glomerular filtration rate.predicted panel (S/P/Bld) 104 mL/min/1.73m??? Normal >=60 [facility] Comment on above: Order Comment: Speci men Type: BLOOD SPECIMEN [facility] Address: [address] [place] [address] Result Comment: Lia mated Glomerular Filtration Rate (eGFR) is calculated using the 2020 CKD-EPI creatinine equation. This equation utilizes serum creatinine, sex, and age as parameters. The creatinine assay has traceable calibration to isotope dilution-mass spectrometry. Refer to KDIGO guidelines for clinical interpretation. In patients with unstable renal function, e.g. those with acute kidney injury, the eGFR may not accurately reflect actual GFR. Performed By: #### 2 4321-2 #### [facility] CLIA [id number] [address] [place] [address] [place] Glucose [Mass/Vol] 110 mg/dL High 74-99 [facility] Comment on above: Order Comment: Speci men Type: BLOOD SPECIMEN [facility] Address: [address] [place] [address] Result Comment: The [place] Diabetes Association (ADA) provides guidance for cutoff values for fasting glucose and random glucose. The ADA defines fasting as no caloric intake for at least 8 hours. Fasting plasma glucose results between 100 to 125 mg/dL indicate increased risk for diabetes (prediabetes). Fasting plasma glucose results greater than or equal to 126 mg/dL meet the criteria for diagnosis of diabetes. In the absence of unequivocal hyperglycemia, results should be confirmed by repeat testing. In a patient with classic symptoms of hyperglycemia or hyperglycemic crisis, random plasma glucose results greater than or equal to 200 mg/dL meet the criteria for diagnosis of diabetes. Reference: Standards of Medical Care in Diabetes 2016, [place] Diabetes Association. Diabetes Care. 2016.39(Suppl 1). Performed By: #### 2 4321-2 #### [facility] CLIA [id number] [address] [place] [address] [place] Potassium [Moles/Vol] 4.3 mmol/L Normal 3.7-5.1 [facility] Comment on above: Order Comment: Speci men Type: BLOOD SPECIMEN [facility] Address: [address] [place] [address] Performed By: #### 2 4321-2 #### [facility] CLIA [id number] [address] [place] [address] [place] Sodium [Moles/Vol] 135 mmol/L Low 136-144 [facility] Comment on above: Order Comment: Rosalie men Type: BLOOD SPECIMEN [facility] Address: [address] [place] [address] Performed By: #### 2 4321-2 #### [facility] CLIA [id number] [address] [place] [id number] [place] Urea nitrogen [Mass/Vol] 13 mg/dL Normal 9-24 [facility] Comment on above: Order Comment: Speci men Type: BLOOD SPECIMEN [facility] Address: [address] [place] [address] Performed By: #### 2 4321-2 #### [facility] CLIA [id number] [address] [place] [address] [place] Anion gap [Moles/Vol] 9 mmol/L Normal 8-15 [facility] Comment on above: Order Comment: Speci men Type: BLOOD SPECIMENOrdering Facility: [facility] Address: [address] [place] [address] Performed By: #### 2 4321-2 ####[facility] LABCLIA [id number] [place] [address] [place] Calcium [Mass/Vol] 8.2 mg/dL Low 8.5-10.2 [facility] Comment on above: Order Comment: Speci men Type: BLOOD SPECIMENOrdering Facility: [facility] Address: [address] [place] [address] Performed By: #### 2 4321-2 ####[facility] LABCLIA [id number] [place] [address] [place] Chloride [Moles/Vol] 95 mmol/L Low 98-107 [facility] Comment on above: Order Comment: Speci men Type: BLOOD SPECIMENOrdering Facility: [facility] Address: [address] [place], [place] [address] Performed By: #### 2 4321-2 ####[facility] LABCLIA [id number] [place] [address] [place] CO2 [Moles/Vol] 23 mmol/L Normal 22-30 [facility] Comment on above: Order Comment: Speci men Type: BLOOD SPECIMENOrdering Facility: [facility] Address: [address] [place] [address] Performed By: #### 2 4321-2 ####[facility] LABIA [id number] [address] [place] Creatinine [Mass/Vol] 0.76 mg/dL Normal 0.73-1.22 [facility] Comment on above: Order Comment: Speci men Type: BLOOD SPECIMENOrdering Facility: [facility] Address: [address] [place] [address] Performed By: #### 2 4321-2 ####[facility] LABIA [id number] [address] [place] Creatinine and Glomerular filtration rate.predicted panel (S/P/Bld) 105 mL/min/1.73m??? Normal >=60 [facility] Comment on above: Order Comment: Speci men Type: BLOOD SPECIMENOrdering Facility: [facility] Address: [address] [place] [address] Result Comment: Lia mated Glomerular Filtration Rate (eGFR) is calculated using the 2020 CKD-EPI creatinine equation. This equation utilizes serum creatinine, sex, and age as parameters. The creatinine assay has traceable calibration to isotope dilution-mass spectrometry. Refer to KDIGO guidelines for clinical interpretation. In patients with unstable renal function, e.g. those with acute kidney injury, the eGFR may not accurately reflect actual GFR. Performed By: #### 2 4321-2 ####[facility] LABIA [id number] [place] [address] [place] Glucose [Mass/Vol] 88 mg/dL Normal 74-99 [facility] Comment on above: Order Comment: Speci men Type: BLOOD SPECIMENOrdering Facility: [facility] Address: [address] [place] [address] Result Comment: The [place] Diabetes Association (ADA) provides guidance for cutoff values for fasting glucose and random glucose. The ADA defines fasting as no caloric intake for at least 8 hours. Fasting plasma glucose results between 100 to 125 mg/dL indicate increased risk for diabetes (prediabetes). Fasting plasma glucose results greater than or equal to 126 mg/dL meet the criteria for diagnosis of diabetes. In the absence of unequivocal hyperglycemia, results should be confirmed by repeat testing. In a patient with classic symptoms of hyperglycemia or hyperglycemic crisis, random plasma glucose results greater than or equal to 200 mg/dL meet the criteria for diagnosis of diabetes. Reference: Standards of Medical Care in Diabetes 2016, [place] [employer] Association. Diabetes Care. 2016.39(Suppl 1). Performed By: #### 2 4321-2 ####[facility] LABCLIA [id number] [place] [address] [place] Potassium [Moles/Vol] 4.6 mmol/L Normal 3.7-5.1 [facility] Comment on above: Order Comment: Nancii men Type: BLOOD SPECIMENOrdering Facility: [facility] Address: [address] [place] [address] Performed By: #### 2 1-2 ####[facility] LABIA [id number] [place] [address] [place] Sodium [Moles/Vol] 127 mmol/L Low 136-144 [facility] Comment on above: Order Comment: Rosalie best Type: BLOOD SPECIMENOrdering Facility: [facility] Address: [address] [place] [address] Performed By: #### 2 1-2 ####[facility] LABCLIA [id number] [place] [address] [place] Urea nitrogen [Mass/Vol] 13 mg/dL Normal 9-24 [facility] Comment on above: Order Comment: Rosalie best Type: BLOOD SPECIMENOrdering Facility: [facility] Address: [address] [place] [address] Performed By: #### 2 4321-2 ####[facility] LABCLIA [id number] [place] [address] [place] Anion gap [Moles/Vol] 9 mmol/L Normal 8-15 [facility] Comment on above: Order Comment: Speci men Type: BLOOD SPECIMENOrdering Facility: [facility] Address: [address] [place] [address] Performed By: #### 2 4321-2, ####[facility] LABCLIA [id number] [place] [address] [place] Calcium [Mass/Vol] 8.4 mg/dL Low 8.5-10.2 [facility] Comment on above: Order Comment: Speci men Type: BLOOD SPECIMENOrdering Facility: [facility] Address: [address] [place] [address] Performed By: #### 2 4320-2, ####[facility] LABCLIA [id number] [place] [address] [place] Chloride [Moles/Vol] 93 mmol/L Low 98-107 [facility] Comment on above: Order Comment: Speci men Type: BLOOD SPECIMENOrdering Facility: [facility] Address: [address] [place] [address] Performed By: #### 2 4320-2, ####[facility] LABCLIA [id number] [place] [address] [place] CO2 [Moles/Vol] 24 mmol/L Normal 22-30 [facility] Comment on above: Order Comment: Speci men Type: BLOOD SPECIMENOrdering Facility: [facility] Address: [address] [place] [address] Performed By: #### 2 4320-2, ####[facility] LABCLIA [id number] [place] [address] [place] Creatinine [Mass/Vol] 0.74 mg/dL Normal 0.73-1.22 [facility] Comment on above: Order Comment: Speci men Type: BLOOD SPECIMENOrdering Facility: [facility] Address: [address] [place] [address] Performed By: #### 2 4321-2, 50617-5 ####[facility] LABIA [id number] [place] [address] [place] Creatinine and Glomerular filtration rate.predicted panel (S/P/Bld) 106 mL/min/1.73m??? Normal >=60 [facility] Comment on above: Order Comment: Rosalie best Type: BLOOD SPECIMENOrdering Facility: [facility] Address: [address] [place] [address] Result Comment: Lia mated Glomerular Filtration Rate (eGFR) is calculated using the 2020 CKD-EPI creatinine equation. This equation utilizes serum creatinine, sex, and age as parameters. The creatinine assay has traceable calibration to isotope dilution-mass spectrometry. Refer to KDIGO guidelines for clinical interpretation. In patients with unstable renal function, e.g. those with acute kidney injury, the eGFR may not accurately reflect actual GFR. Performed By: #### 2 432-2, ####[facility] LABIA [id number] [place] [address] [place] Glucose [Mass/Vol] 101 mg/dL High 74-99 [facility] Comment on above: Order Comment: Rosalie best Type: BLOOD SPECIMENOrdering Facility: [facility] Address: [address] [place] [address] Result Comment: The [place] Diabetes Association (ADA) provides guidance for cutoff values for fasting glucose and random glucose. The ADA defines fasting as no caloric intake for at least 8 hours. Fasting plasma glucose results between 100 to 125 mg/dL indicate increased risk for diabetes (prediabetes). Fasting plasma glucose results greater than or equal to 126 mg/dL meet the criteria for diagnosis of diabetes. In the absence of unequivocal hyperglycemia, results should be confirmed by repeat testing. In a patient with classic symptoms of hyperglycemia or hyperglycemic crisis, random plasma glucose results greater than or equal to 200 mg/dL meet the criteria for diagnosis of diabetes. Reference: Standards of Medical Care in Diabetes 2016, [place] Diabetes Association. Diabetes Care. 2016.39(Suppl 1). Performed By: #### 2 4320-, ####[facility] LABCLIA [id number] [place] [id number] [place] Potassium [Moles/Vol] 4.7 mmol/L Normal 3.7-5.1 [facility] Comment on above: Order Comment: Speci men Type: BLOOD SPECIMENOrdering Facility: [facility] Address: [address] [place] [address] Performed By: #### 2 4321-2, ####[facility] LABCLIA [id number] [place] [id number] [place] Sodium [Moles/Vol] 126 mmol/L Low 136-144 [facility] Comment on above: Order Comment: Speci men Type: BLOOD SPECIMENOrdering Facility: [facility] Address: [address] [place] [address] Performed By: #### 2 432-2, ####[facility] LABCLIA [id number] [place] [id number] [place] Urea nitrogen [Mass/Vol] 15 mg/dL Normal 9-24 [facility] Comment on above: Order Comment: Speci men Type: BLOOD SPECIMENOrdering Facility: [facility] Address: [address] [place] [address] Performed By: #### 2 4321-2, ####[facility] LABCLIA [id number] [place] [id number] [place] Anion gap [Moles/Vol] 8 mmol/L Normal 8-15 [facility] Comment on above: Order Comment: Speci men Type: BLOOD SPECIMENOrdering Facility: [facility] Address: [address] [place] [address] Performed By: #### 2 4321-2 ####[facility] LABCLIA [id number] [place] [id number] [place] Calcium [Mass/Vol] 8.5 mg/dL Normal 8.5-10.2 [facility] Comment on above: Order Comment: Speci men Type: BLOOD SPECIMENOrdering Facility: [facility] Address: [address] [place] [address] Performed By: #### 2 4321-2 ####[facility] LABCLIA [id number] [place] [address] [place] Chloride [Moles/Vol] 91 mmol/L Low 98-107 [facility] Comment on above: Order Comment: Speci men Type: BLOOD SPECIMENOrdering Facility: [facility] Address: [address] [place] [address] Performed By: #### 2 4321-2 ####[facility] LABCLIA [id number] [place] [address] [place] CO2 [Moles/Vol] 24 mmol/L Normal 22-30 [facility] Comment on above: Order Comment: Speci men Type: BLOOD SPECIMENOrdering Facility: [facility] Address: [address] [place] [address] Performed By: #### 2 4321-2 ####[facility] LABCLIA [id number] [place] [address] [place] Creatinine [Mass/Vol] 0.80 mg/dL Normal 0.73-1.22 [facility] Comment on above: Order Comment: Speci men Type: BLOOD SPECIMENOrdering Facility: [facility] Address: [address] [place] [address] Performed By: #### 2 4321-2 ####[facility] LABCLIA [id number] [place] [address] [place] Creatinine and Glomerular filtration rate.predicted panel (S/P/Bld) 103 mL/min/1.73m??? Normal >=60 [facility] Comment on above: Order Comment: Speci men Type: BLOOD SPECIMENOrdering Facility: [facility] Address: [address] [place] [address] Result Comment: Lia mated Glomerular Filtration Rate (eGFR) is calculated using the 2020 CKD-EPI creatinine equation. This equation utilizes serum creatinine, sex, and age as parameters. The creatinine assay has traceable calibration to isotope dilution-mass spectrometry. Refer to KDIGO guidelines for clinical interpretation. In patients with unstable renal function, e.g. those with acute kidney injury, the eGFR may not accurately reflect actual GFR. Performed By: #### 2 4321-2 ####[facility] LABCLIA [id number] [place] [address] [place] Glucose [Mass/Vol] 111 mg/dL High 74-99 [facility] Comment on above: Order Comment: Rosalie best Type: BLOOD SPECIMENOrdering Facility: [facility] Address: [address] [place] [address] Result Comment: The [place] Diabetes Association (ADA) provides guidance for cutoff values for fasting glucose and random glucose. The ADA defines fasting as no caloric intake for at least 8 hours. Fasting plasma glucose results between 100 to 125 mg/dL indicate increased risk for diabetes (prediabetes). Fasting plasma glucose results greater than or equal to 126 mg/dL meet the criteria for diagnosis of diabetes. In the absence of unequivocal hyperglycemia, results should be confirmed by repeat testing. In a patient with classic symptoms of hyperglycemia or hyperglycemic crisis, random plasma glucose results greater than or equal to 200 mg/dL meet the criteria for diagnosis of diabetes. Reference: Standards of Medical Care in Diabetes 2016, [place] Diabetes Association. Diabetes Care. 2016.39(Suppl 1). Performed By: #### 2 4321-2 ####[facility] LABCLIA [id number] [place] [address] [place] Potassium [Moles/Vol] 4.7 mmol/L Normal 3.7-5.1 [facility] Comment on above: Order Comment: Rosalie best Type: BLOOD SPECIMENOrdering Facility: [facility] Address: [address] [place] [address] Performed By: #### 2 4321-2 ####[facility] LABCLIA [id number] [place] [address] [place] Sodium [Moles/Vol] 123 mmol/L Low 136-144 [facility] Comment on above: Order Comment: Speci men Type: BLOOD SPECIMENOrdering Facility: [facility] Address: [address] [place] [address] Performed By: #### 2 4321-2 ####[facility] LABCLIA [id number] [place] [address] [place] Urea nitrogen [Mass/Vol] 15 mg/dL Normal 9-24 [facility] Comment on above: Order Comment: Speci men Type: BLOOD SPECIMENOrdering Facility: [facility] Address: [address] [place] [address] Performed By: #### 2 4321-2 ####[facility] LABCLIA [id number] [address] [place] CASE MANAGEMon 03-22-2024 CASE MANAGEM HNO ID: [id number] Author: HERACLIO KAUR LISW Service: ? Author Type: Art Critic Type: Care Mgt Progress Note Filed: 03/23/2024 09:21 Note Text: CARE MANAGEMENT PROGRESS NOTE SERVICE DATE: 03/22/2024 SERVICE TIME: 8:42 AM LOS: 2 days Needs Prior to Discharge: TBD Post-Acute Discharge Plan: Patient is 58 years old with PMH of burst fracture of T12 vertebra, chronic pain including low back pain s/p multiple laminectomies, HTN, GERD, peripheral neuropathy, depression who came to the hospital due to significantly worsened low back/right leg pain that started about a week ago Patient lives with spouse in [place] with [employer] No hc, dme or O2 6 click score is 24 and patient is on RA No skilled needs anticipated Please see Treatment Team for Care Management Weekend/Holiday coverage. SIGNATURE: MONE Desai PATIENT NAME: Enrrique Madera DATE: March 22, 2024 TIME: 8:42 AM PAGER/CONTACT #: [phone] Normal [facility] CBC panel Auto (Bld)on 03-22 Erythrocyte distribution width (RBC) [Ratio] 13.5 % Normal 11.5-15.0 [facility] Comment on above: Order Comment: Speci men Type: BLOOD SPECIMENOrdering Facility: [facility] Address: [address] [place] [address] Performed By: #### 5 8410-2 ####[facility] LABCLIA [id number] [place] [address] [place] Hematocrit (Bld) [Volume fraction] 40.4 % Normal 39.0-51.0 [facility] Comment on above: Order Comment: Speci men Type: BLOOD SPECIMENOrdering Facility: [facility] Address: [address] [place] [address] Performed By: #### 5 8410-2 ####[facility] LABCLIA [id number] [place] [address] [place] Hemoglobin (Bld) [Mass/Vol] 14.1 g/dL Normal 13.0-17.0 [facility] Comment on above: Order Comment: Speci men Type: BLOOD SPECIMENOrdering Facility: [facility] Address: [address] [place] [address] Performed By: #### 5 8410-2 ####[facility] LABIA [id number] [place] [address] [place] MCH (RBC) [Entitic mass] 30.8 pg Normal 26.0-34.0 [facility] Comment on above: Order Comment: Speci men Type: BLOOD SPECIMENOrdering Facility: [facility] Address: [address] [place] [address] Performed By: #### 5 8410-2 ####[facility] LABCLIA [id number] [place] [address] [place] MCHC (RBC) [Mass/Vol] 34.9 g/dL Normal 30.5-36.0 [facility] Comment on above: Order Comment: Speci men Type: BLOOD SPECIMENOrdering Facility: [facility] Address: [address] [place] [address] Performed By: #### 5 8410-2 ####[facility] LABCLIA [id number] [place] [address] [place] MCV (RBC) [Entitic vol] 88.2 fL Normal 80.0-100.0 [facility] Comment on above: Order Comment: Speci men Type: BLOOD SPECIMENOrdering Facility: [facility] Address: [address] [place] [address] Performed By: #### 5 8410-2 ####[facility] LABCLIA [id number] [place] [address] [place] Nucleated RBC (Bld) [#/Vol] 10*3/uL Normal <0.01 [facility] Comment on above: Order Comment: Speci men Type: BLOOD SPECIMENOrdering Facility: [facility] Address: [address] [place] [address] Performed By: #### 5 8410-2 ####[facility] LABCLIA [id number] [place] [address] [place] Platelet mean volume (Bld) [Entitic vol] 9.3 fL Normal 9.0-12.7 [facility] Comment on above: Order Comment: Speci men Type: BLOOD SPECIMENOrdering Facility: [facility] Address: [address] [place] [address] Performed By: #### 5 8410-2 ####[facility] LABCLIA [id number] [place] [address] [place] Platelets (Bld) [#/Vol] 265 10*3/uL Normal 150-400 [facility] Comment on above: Order Comment: Speci men Type: BLOOD SPECIMENOrdering Facility: [facility] Address: [address] [place] [address] Performed By: #### 5 8410-2 ####[facility] LABCLIA [id number] [place] [address] [place] RBC (Bld) [#/Vol] 4.58 10*6/uL Normal 4.20-6.00 [facility] Comment on above: Order Comment: Speci men Type: BLOOD SPECIMENOrdering Facility: [facility] Address: [address] [place] [address] Performed By: #### 5 8410-2 ####[facility] [id number] [place] [address] [place] WBC (Bld) [#/Vol] 15.04 10*3/uL High 3.70-11.00 [facility] Comment on above: Order Comment: Speci men Type: BLOOD SPECIMENOrdering Facility: [facility] Address: [address] [place] [address] Performed By: #### 5 8410-2 ####[facility] [id number] [place] [address] [place] CONSULT PROGon 03-22-2024 CONSULT PROG HNO ID: [id number] Author: JEFERSON CAMPBELL MD Service: Nephrology Author Type: Physician Type: Consult Progress Note Filed: 03/22/2024 16:21 Note Text: CONSULT PROGRESS NOTE NEPHROLOGY SERVICE SERVICE DATE: 03/22/2024 SERVICE TIME: 1:28 PM Subjective HISTORY: Mr. Madera is a 58 year old male patient with a history of burst fracture of T12 vertebra, chronic back pain s/p multiple laminectomies, HTN, GERD, peripheral neuropathy and depression. He came to the hospital on 03/19 for worsening lower back/right leg pain of 2 weeks duration, which he attributes to lifting a heavy cooler. Initial labs from the ED were consistent with contamination of normal saline, then on the 03/20 his Na was 12. And decreased to 120 yesterday. This morning his Na is 126. He mentions that he drinks 12-14 diet mountain dew daily and that since his hospitalization, he is only drinking 2 or 3, and is drinking lots of water instead. He was also started on HCTZ a few months ago which has since been discontinued during his hospitalization. MEDICATIONS: Current Facility-Administered Medications Medication Dose Route Frequency buprenorphine 5 mcg/hour 1 Patch (BUTRANS) 1 Patch TRANSDERMAL 1/WK And buprenorphine - REMOVE PATCH OTHER 1/WK And buprenorphine - VERIFY PATCH OTHER q [address] 40 mg tab(s) (PROTONIX) 40 mg ORAL DAILY (6 AM) NaCl 0.9% iv flush bag 20 mL INTRAVENOUS PRN buPROPion SR 150 mg tab(s) (WELLBUTRIN SR) 150 mg ORAL BID lisinopril 20 mg tab(s) (ZESTRIL) 20 mg ORAL DAILY buprenorphine 10 mcg/hour 1 Patch (BUTRANS) 1 Patch TRANSDERMAL 1/WK And buprenorphine - REMOVE PATCH OTHER 1/WK And buprenorphine - VERIFY PATCH OTHER q 8 H acetaminophen 1,000 mg tab(s) (TYLENOL) 1,000 mg ORAL q 8 H diclofenac 1.3 % 1 Patch (FLECTOR) 1 Patch TRANSDERMAL BID And diclofenac - REMOVE PATCH OTHER BID And diclofenac - VERIFY PATCH OTHER q 8 H oxyCODONE IR 5-10 mg tab(s) (ROXICODONE) 5-10 mg ORAL q 4 H PRN morphine 4 mg injection 4 mg INTRAVENOUS q 4 H PRN senna 8.6 mg tab(s) (SENOKOT) 1 tablet ORAL BID naloxegol 25 mg tab(s) (MOVANTIK) 25 mg ORAL DAILY polyethylene glycol 3350 17 g packet 17 g ORAL BID tamsulosin 0.4 mg cap(s) (FLOMAX) 0.4 mg ORAL AT BEDTIME pregabalin 200 mg cap(s) (LYRICA) 200 mg ORAL TID methocarbamol 1,000-1,500 mg tab(s) (ROBAXIN) 1,000-1,500 mg ORAL QID PRN Objective PHYSICAL EXAM: BP 142/82 Pulse 86 Temp 36.7 ?C (98.1 ?F) (Oral) Resp 14 SpO2 96% Intake/Output Summary (Last 24 hours) at 03/22/2024 1328 Last data filed at 03/22/2024 1200 Gross per 24 hour Intake 300 ml Output 5325 ml Net -5025 ml Constitutional: No acute distress, Responsive, Normal habitus, and Well-nourished Cardiovascular: Regular rate and rhythm, normal S1 and S2, no murmurs, rubs, or gallops No peripheral edema Respiratory: Normal respiratory effort. Lungs clear bilaterally. Abdomen: Soft, non-tender, non-distended. Normal bowel sounds. No hepatosplenomegaly. Psychiatric: Alert and oriented x self, place, time, and setting Normal mood/affect DATA: Diagnostic tests reviewed for today's visit: Most recent labs and imaging results. Recent Labs 03/22/24 0524 03/22/24 0113 03/21/24 1756 03/21/24 1431 03/21/24 0734 03/20/24 1700 03/20/24 0849 NA 126* 123* 120* 120* 123* < > 128* K 4.7 4.7 4.8 4.8 4.8 < > 5.1 CHLOR 93* 91* 87* 86* 88* < > 93* CO2 24 24 25 28 24 < > 28 BUN 15 15 15 14 16 < > 14 CREAT 0.74 0.80 0.80 0.80 0.81 < > 0.77 GLUC 101* 111* 109* 87 90 < > 86 ANION 9 8 8 6* 11 < > 7* CA 8.4* 8.5 8.5 8.5 8.6 < > 8.8 MG -- -- -- -- -- -- 2.2 < > = values in this interval not displayed. Recent Labs 03/22/24 0113 03/21/24 0734 03/20/24 1700 WBC 15.04* 11.67* 11.62* HB 14.1 14.7 14.0 HCT 40.4 42.4 40.4 PLT 265 288 263 Assessment/Plan 58 year old male who presents with a history of burst fracture of T12 vertebra, chronic back pain s/p multiple laminectomies, HTN, GERD, peripheral neuropathy and depression. He was admitted for severe lower back pain and right leg pain. During his hospitalization he was found to be hyponatremic. 1. Acute Hyponatremia, asymptomatic - Initial lab value on admission (139) is most likely incorrect - Acute drop in Na from 128 to 120 in 36 hours. Today it is 126. - 1.2L fluid restriction as of yesterday afternoon. - Blood Osmolality: 253 , Urine Osmolality: 191 , Urina Na <20 - urine studies obtained after IVF. - Patients hyponatremia likely driven by low solute consumption in the setting of increased water intake. - Patients hyponatremia may or may not be caused/worsened by HCTZ. 2. Volume Status - Euvolemic 3. Acid/Base - Stable PLAN - Na daily checks - Pain control - Daily BMP - Continue holding HCTZ - Continue 1.2L fluid restriction per day and encourage normal diet - Strict I/Os SIGNATURE: Ally Maguire PATIENT NAME: Enrrique Madera DATE: March 22, 2024 (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 Normal [facility] Magnesium SerPl-mCncon 03-22 Magnesium [Mass/Vol] 2.2 mg/dL Normal 1.7-2.3 [facility] Comment on above: Order Comment: Speci men Type: BLOOD SPECIMENOrdering Facility: [facility] Address: [address] [place] [address] Performed By: #### 2 4321-2, 47222-7 ####[facility] LABCLIA [id number] [place] [address] [place] Basic metabolic 2000 panelon 03-21-2024 Anion gap [Moles/Vol] 8 mmol/L Normal 8-15 [facility] Comment on above: Order Comment: Speci men Type: BLOOD SPECIMENOrdering Facility: [facility] Address: [address] [place] [address] Performed By: #### 2 4321-2 ####[facility] LABCLIA [id number] [place] [address] [place] Calcium [Mass/Vol] 8.5 mg/dL Normal 8.5-10.2 [facility] Comment on above: Order Comment: Speci men Type: BLOOD SPECIMENOrdering Facility: [facility] Address: [address] [place] [address] Performed By: #### 2 4321-2 ####[facility] LABCLIA [id number] [place] [address] [place] Chloride [Moles/Vol] 87 mmol/L Low 98-107 [facility] Comment on above: Order Comment: Speci men Type: BLOOD SPECIMENOrdering Facility: [facility] Address: [address] [place] [address] Performed By: #### 2 4321-2 ####[facility] LABCLIA [id number] [place] [address] [place] CO2 [Moles/Vol] 25 mmol/L Normal 22-30 [facility] Comment on above: Order Comment: Speci men Type: BLOOD SPECIMENOrdering Facility: [facility] Address: [address] [place] [address] Performed By: #### 2 4321-2 ####[facility] LABIA [id number] [address] [place] Creatinine [Mass/Vol] 0.80 mg/dL Normal 0.73-1.22 [facility] Comment on above: Order Comment: Speci men Type: BLOOD SPECIMENOrdering Facility: [facility] Address: [address] [place] [address] Performed By: #### 2 4321-2 ####[facility] LABIA [id number] [address] [place] [facility] Creatinine and Glomerular filtration rate.predicted panel (S/P/Bld) 103 mL/min/1.73m??? Normal >=60 [facility] Comment on above: Order Comment: Speci men Type: BLOOD SPECIMENOrdering Facility: [facility] Address: [address] [place] [address] Result Comment: Lia mated Glomerular Filtration Rate (eGFR) is calculated using the 2020 CKD-EPI creatinine equation. This equation utilizes serum creatinine, sex, and age as parameters. The creatinine assay has traceable calibration to isotope dilution-mass spectrometry. Refer to KDIGO guidelines for clinical interpretation. In patients with unstable renal function, e.g. those with acute kidney injury, the eGFR may not accurately reflect actual GFR. Performed By: #### 2 4321-2 ####[facility] LABCLIA [id number] [place] [address] [place] Glucose [Mass/Vol] 109 mg/dL High 74-99 [facility] Comment on above: Order Comment: Speci men Type: BLOOD SPECIMENOrdering Facility: [facility] Address: [address] [place] [address] Result Comment: The [place] Diabetes Association (ADA) provides guidance for cutoff values for fasting glucose and random glucose. The ADA defines fasting as no caloric intake for at least 8 hours. Fasting plasma glucose results between 100 to 125 mg/dL indicate increased risk for diabetes (prediabetes). Fasting plasma glucose results greater than or equal to 126 mg/dL meet the criteria for diagnosis of diabetes. In the absence of unequivocal hyperglycemia, results should be confirmed by repeat testing. In a patient with classic symptoms of hyperglycemia or hyperglycemic crisis, random plasma glucose results greater than or equal to 200 mg/dL meet the criteria for diagnosis of diabetes. Reference: Standards of Medical Care in Diabetes 2016, [place] [employer]. Diabetes Care. 2016.39(Suppl 1). Performed By: #### 2 4321-2 ####[facility] LABCLIA [id number] [place] [address] [place] Potassium [Moles/Vol] 4.8 mmol/L Normal 3.7-5.1 [facility] Comment on above: Order Comment: Nancii men Type: BLOOD SPECIMENOrdering Facility: [facility] Address: [address] [place] [address] Performed By: #### 2 4321-2 ####[facility] LABCLIA [id number] [place] [address] [place] Sodium [Moles/Vol] 120 mmol/L Low 136-144 [facility] Comment on above: Order Comment: Speci men Type: BLOOD SPECIMENOrdering Facility: [facility] Address: [address] [place] [address] Performed By: #### 2 4321-2 ####[facility] LABCLIA [id number] [place] [address] [place] Urea nitrogen [Mass/Vol] 15 mg/dL Normal 9-24 [facility] Comment on above: Order Comment: Speci men Type: BLOOD SPECIMENOrdering Facility: [facility] Address: [address] [place] [id number] Performed By: #### 2 4321-2 ####[facility] LABCLIA [id number] [place] [address] [place] Anion gap [Moles/Vol] 6 mmol/L Low 8-15 [facility] Comment on above: Order Comment: Speci men Type: BLOOD SPECIMEN Ordering Facility: [facility] Address: [address] [place] [address] Performed By: #### 2 4321-2 #### [facility] CLIA [id number] [address] [place] [address] [place] Calcium [Mass/Vol] 8.5 mg/dL Normal 8.5-10.2 [facility] Comment on above: Order Comment: Speci men Type: BLOOD SPECIMEN Ordering Facility: [facility] Address: [address] [place] [id number] Performed By: #### 2 4321-2 #### [facility] CLIA [id number] [address] [place] [address] [place] Chloride [Moles/Vol] 86 mmol/L Low 98-107 [facility] Comment on above: Order Comment: Speci men Type: BLOOD SPECIMEN Ordering Facility: [facility] Address: [address] [place] [address] Performed By: #### 2 4321-2 #### [facility] CLIA [id number] [address] [place] [address] [place] CO2 [Moles/Vol] 28 mmol/L Normal 22-30 [facility] Comment on above: Order Comment: Speci men Type: BLOOD SPECIMEN Ordering Facility: [facility] Address: [address] [place] [id number] Performed By: #### 2 4321-2 #### [facility] CLIA [id number] [facility] [place] [address] [place] Creatinine [Mass/Vol] 0.80 mg/dL Normal 0.73-1.22 [facility] Comment on above: Order Comment: Rosalie best Type: BLOOD SPECIMEN Ordering Facility: [facility] Address: [address] [place] [address] Performed By: #### 2 4321-2 #### [facility] CLIA [id number] [address] [place] [address] [place] Creatinine and Glomerular filtration rate.predicted panel (S/P/Bld) 103 mL/min/1.73m??? Normal >=60 [facility] Comment on above: Order Comment: Rosalie best Type: BLOOD SPECIMEN Ordering Facility: [facility] Address: [address] [place] [address] Result Comment: Lia mated Glomerular Filtration Rate (eGFR) is calculated using the 2020 CKD-EPI creatinine equation. This equation utilizes serum creatinine, sex, and age as parameters. The creatinine assay has traceable calibration to isotope dilution-mass spectrometry. Refer to KDIGO guidelines for clinical interpretation. In patients with unstable renal function, e.g. those with acute kidney injury, the eGFR may not accurately reflect actual GFR. Performed By: #### 2 4321-2 #### [facility] CLIA [id number] [address] [place] [address] [place] Glucose [Mass/Vol] 87 mg/dL Normal 74-99 [facility] Comment on above: Order Comment: Rosalie best Type: BLOOD SPECIMEN Ordering Facility: [facility] Address: [address] [place] [address] Result Comment: The [place] Diabetes Association (ADA) provides guidance for cutoff values for fasting glucose and random glucose. The ADA defines fasting as no caloric intake for at least 8 hours. Fasting plasma glucose results between 100 to 125 mg/dL indicate increased risk for diabetes (prediabetes). Fasting plasma glucose results greater than or equal to 126 mg/dL meet the criteria for diagnosis of diabetes. In the absence of unequivocal hyperglycemia, results should be confirmed by repeat testing. In a patient with classic symptoms of hyperglycemia or hyperglycemic crisis, random plasma glucose results greater than or equal to 200 mg/dL meet the criteria for diagnosis of diabetes. Reference: Standards of Medical Care in Diabetes 2016, [place] Diabetes Association. Diabetes Care. 2016.39(Suppl 1). Performed By: #### 2 4321-2 #### [facility] CLIA [id number] [address] [place] [address] [place] Potassium [Moles/Vol] 4.8 mmol/L Normal 3.7-5.1 [facility] Comment on above: Order Comment: Speci men Type: BLOOD SPECIMEN Ordering Facility: [facility] Address: [address] [place] [address] Performed By: #### 2 4321-2 #### [facility] CLIA [id number] [address] [place] [address] [place] Sodium [Moles/Vol] 120 mmol/L Low 136-144 [facility] Comment on above: Order Comment: Speci men Type: BLOOD SPECIMEN Ordering Facility: [facility] Address: [address] [place] [address] Performed By: #### 2 4321-2 #### [facility] CLIA [id number] [address] [place] [address] [place] Urea nitrogen [Mass/Vol] 14 mg/dL Normal 9-24 [facility] Comment on above: Order Comment: Speci men Type: BLOOD SPECIMEN Ordering Facility: [facility] Address: [address] [place] [address] Performed By: #### 2 4321-2 #### [facility] CLIA [id number] [address] [place] [address] [place] Anion gap [Moles/Vol] 11 mmol/L Normal 8-15 [facility] Comment on above: Order Comment: Speci men Type: BLOOD SPECIMENOrdering Facility: [facility] Address: [address] [place] [address] [place] [address] Performed By: #### 2 4321-2, 3015-3 ####[facility] [id number] [address] [address] [place] Calcium [Mass/Vol] 8.6 mg/dL Normal 8.5-10.2 [facility] Comment on above: Order Comment: Speci men Type: BLOOD SPECIMENOrdering Facility: [facility] Address: [address] [place] [address] Performed By: #### 2 4321-2, 3015-3 ####[facility] [id number] [place] [address] [place] Chloride [Moles/Vol] 88 mmol/L Low 98-107 [facility] Comment on above: Order Comment: Speci men Type: BLOOD SPECIMENOrdering Facility: [facility] Address: [address] [place] [address] Performed By: #### 2 4320-2, 3015-3 ####[facility] [id number] [place] [address] [place] CO2 [Moles/Vol] 24 mmol/L Normal 22-30 [facility] Comment on above: Order Comment: Speci men Type: BLOOD SPECIMENOrdering Facility: [facility] Address: [address] [place], [place] [address] Performed By: #### 2 4320-2, 3015-3 ####[facility] [id number] [place] [address] [place] Creatinine [Mass/Vol] 0.81 mg/dL Normal 0.73-1.22 [facility] Comment on above: Order Comment: Speci men Type: BLOOD SPECIMENOrdering Facility: [facility] Address: [address] [place], [place] [address] Performed By: #### 2 4321-2, 3015-3 ####[facility] [id number] [place] [address] [place] Creatinine and Glomerular filtration rate.predicted panel (S/P/Bld) 103 mL/min/1.73m??? Normal >=60 [facility] Comment on above: Order Comment: Rosalie best Type: BLOOD SPECIMENOrdering Facility: [facility] Address: [address] [place] [address] Result Comment: Lia mated Glomerular Filtration Rate (eGFR) is calculated using the 2020 CKD-EPI creatinine equation. This equation utilizes serum creatinine, sex, and age as parameters. The creatinine assay has traceable calibration to isotope dilution-mass spectrometry. Refer to KDIGO guidelines for clinical interpretation. In patients with unstable renal function, e.g. those with acute kidney injury, the eGFR may not accurately reflect actual GFR. Performed By: #### 2 4321-2, 3016-3 ####[facility] [id number] [place] [address] [place] Glucose [Mass/Vol] 90 mg/dL Normal 74-99 [facility] Comment on above: Order Comment: Rosalie best Type: BLOOD SPECIMENOrdering Facility: [facility] Address: [address] [place] [address] Result Comment: The [place] Diabetes Association (ADA) provides guidance for cutoff values for fasting glucose and random glucose. The ADA defines fasting as no caloric intake for at least 8 hours. Fasting plasma glucose results between 100 to 125 mg/dL indicate increased risk for diabetes (prediabetes). Fasting plasma glucose results greater than or equal to 126 mg/dL meet the criteria for diagnosis of diabetes. In the absence of unequivocal hyperglycemia, results should be confirmed by repeat testing. In a patient with classic symptoms of hyperglycemia or hyperglycemic crisis, random plasma glucose results greater than or equal to 200 mg/dL meet the criteria for diagnosis of diabetes. Reference: Standards of Medical Care in Diabetes 2016, [place] Diabetes Association. Diabetes Care. 2016.39(Suppl 1). Performed By: #### 2 4321-2, 3016-3 ####[facility] [id number] [place] [address] [place] Potassium [Moles/Vol] 4.8 mmol/L Normal 3.7-5.1 [facility] Comment on above: Order Comment: Speci men Type: BLOOD SPECIMENOrdering Facility: [facility] Address: [address] [place] [address] Performed By: #### 2 4321-2, 3016-3 ####[facility]CLIA [id number] [place] [address] [place] Sodium [Moles/Vol] 123 mmol/L Low 136-144 [facility] Comment on above: Order Comment: Speci men Type: BLOOD SPECIMENOrdering Facility: [facility] Address: [address] [place] [address] Performed By: #### 2 4321-2, 6-3 ####[facility]CLIA [id number] [place] [address] [place] Urea nitrogen [Mass/Vol] 16 mg/dL Normal 9-24 [facility] Comment on above: Order Comment: Speci men Type: BLOOD SPECIMENOrdering Facility: [facility] Address: [address] [place] [address] Performed By: #### 2 4321-2, 3016-3 ####[facility]CLIA [id number] [place] [address] [place] CBC panel Auto (Bld)on 03-21 Erythrocyte distribution width (RBC) [Ratio] 13.8 % Normal 11.5-15.0 [facility] Comment on above: Order Comment: Speci men Type: BLOOD SPECIMENOrdering Facility: [facility] Address: [address] [place] [address] Performed By: #### 5 8410-2 ####[facility]CLIA [id number] [place] [address] [place] Hematocrit (Bld) [Volume fraction] 42.4 % Normal 39.0-51.0 [facility] Comment on above: Order Comment: Speci men Type: BLOOD SPECIMENOrdering Facility: [facility] Address: [address] [place] [address] Performed By: #### 5 8410-2 ####[facility] [id number] [place] [address] [place] Hemoglobin (Bld) [Mass/Vol] 14.7 g/dL Normal 13.0-17.0 [facility] Comment on above: Order Comment: Speci men Type: BLOOD SPECIMENOrdering Facility: [facility] Address: [address] [place] [address] Performed By: #### 5 8410-2 ####[facility] [id number] [place] [address] [place] MCH (RBC) [Entitic mass] 31.1 pg Normal 26.0-34.0 [facility] Comment on above: Order Comment: Speci men Type: BLOOD SPECIMENOrdering Facility: [facility] Address: [address] [place] [address] Performed By: #### 5 8410-2 ####[facility] [id number] [place] [address] [place] MCHC (RBC) [Mass/Vol] 34.7 g/dL Normal 30.5-36.0 [facility] Comment on above: Order Comment: Speci men Type: BLOOD SPECIMENOrdering Facility: [facility] Address: [address] [place] [address] Performed By: #### 5 8410-2 ####[facility] [id number] [place] [address] [place] MCV (RBC) [Entitic vol] 89.6 fL Normal 80.0-100.0 [facility] Comment on above: Order Comment: Speci men Type: BLOOD SPECIMENOrdering Facility: [facility] Address: [address] [place] [address] Performed By: #### 5 8410-2 ####[facility] [id number] [place] [address] [place] Nucleated RBC (Bld) [#/Vol] 10*3/uL Normal <0.01 [facility] Comment on above: Order Comment: Speci men Type: BLOOD SPECIMENOrdering Facility: [facility] Address: [address] [place] [address] Performed By: #### 5 8410-2 ####[facility] [id number] [place] [address] [place] Platelet mean volume (Bld) [Entitic vol] 9.2 fL Normal 9.0-12.7 [facility] Comment on above: Order Comment: Speci men Type: BLOOD SPECIMENOrdering Facility: [facility] Address: [address] [place] [address] Performed By: #### 5 8410-2 ####[facility] [id number] [place] [address] [place] Platelets (Bld) [#/Vol] 288 10*3/uL Normal 150-400 [facility] Comment on above: Order Comment: Speci men Type: BLOOD SPECIMENOrdering Facility: [facility] Address: [address] [place] [address] Performed By: #### 5 8410-2 ####[facility] [id number] [place] [address] [place] RBC (Bld) [#/Vol] 4.73 10*6/uL Normal 4.20-6.00 [facility] Comment on above: Order Comment: Speci men Type: BLOOD SPECIMENOrdering Facility: [facility] Address: [address] [place] [address] Performed By: #### 5 8410-2 ####[facility] [id number] [place] [address] [place] WBC (Bld) [#/Vol] 11.67 10*3/uL High 3.70-11.00 [facility] Comment on above: Order Comment: Speci men Type: BLOOD SPECIMENOrdering Facility: [facility] Address: [address] [place] [address] Performed By: #### 5 8410-2 ####[facility] LABCLIA [id number] [place] [address] [place] [id number] [facility] CONSULTon 03-21-2024 CONSULT HNO ID: [id number] Author: JEFERSON CAMPBELL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 HTMLBase 64 NvxcfaqeBMh1sTh+PGhlYWQ+PE1F JSKnG98lcVCctD6yS1SEWYcOKmuc MSRVHGiHFwJwbcDvKI4rfHQwWOJc IC8+YP4bYDNaTtsgqGLnr4R5mMF8 L35ycc4cWZftzNP6NJGmVtAtxjgj q8ujrRb5BYdjCkkmEcEl LNFisX02IWD7jE95Ct15mFGgnHTa r8rpbDv1ExGjSWQkGXH9dFodZGqc t6QwGJPdK19uoPMyj5S6 BNGvgFevvDLaXnAsjHN7qX7aVVaf sslxr5yxomykAml2bc41tYUpd3M2 sYI6Z3FxkvJ9IJKbvEYu GuxfoNRWiI1wjeumw7vduekmAaGf ZGUuPCc0TOh0OGZtpPxaQlFuSW31 GFY1CPHmlhTgG5XyRYGb cNhvNgC8m2R5Cd7LX1GRDghhO5KD TUFSWTwvdGQ+RZ35mg14Z1IyKhxe Urz1USCxNYL0hXF9pQ6j IJBlKOelk0I7bJY3W4FhzdOhop3r i7agJDNxIPjwT90lzZMem0Q2NICo qXZ9CLKzeUbzRaYaqU80 Oyc+WZWcsKztl5ZoFczby8teq6ea nUy6UaqbVDLadjVwpRyzSTL1o2Jy Fe8rQWXgtXE5bAJ4mQ0u OqHqLdI7TGsyT888SvBizJNxVtyd P31vF2JogDL+LNJaGep6REVmqXwl WK6kR2IqAVOtncvnwZSi nTnbSN4iRLEjvpstOXVgpJ5gWGEt V9b4BfOmCaJ5QVttY0SgDDSwwypn Uk72qD8eWvBqUyT3WXsh Q4MelmH2VUJjxATfPBiwFOP5I28q z3L0VDNcFDSrXWK4wBV5wA8hsHqh bjogbGVmdDsgdmVydGlj ZBtmWVmyX867VKBvuBauUjKvALap ZyBEYXRlOiAgMDgvMDUvMjAyNDwv dGQ+EURyOWR8qQzwYPVg dCGfCXdwMl7agGijjNzfIF1nDCZw jjxnWRBtaB9tDTTkdDTnfRlcAK7t LUIjynipz834GwKgYNT8 WRIhxKRoD9DufP5cReDsTBFuQVIp B4AmjAYvKVehD090VKqpRxN1MTSa utYkK1ByDPRcmVpzEoH8 w6G7Ch3Co2IctyoiV2UeyFVrAtTp NmlcPBb3G7GuBgmwqMC+KO69QAXw AH81NVz6TFR1jYqrYHex BLSdZ3LugE3pXjSdHLLdAEEqTnl+ PHRhYmxlIHdpZHRoPScxMDAlJyBz nQqsCX2jMt7fPDFxLNEn fZvcwNUhSzVwh8bdOZOwAZtiFW4n lNuxU4UdgVX7GGBds9t0It33H25w L2SipQT+PESixXU5qVT3 iL5iCeJoKlQ3SOryB080XiFuzVKe Ohmym2sbg5zpfGf1LaM4RYWoupKd ePpvFJW5v1AgJu96W16l HFuhDHNySEVjSLYxMSKkuCsgry5z yE7sPl6+HKFoaEA5dSP9qX5bVlTw WrA7XOkvM687OiWdlWGn Nhvsk0cfy4fczTk7HpAzZZLbloRt wYxuJXG0g1GtAi03I1EicAich5Jy Xyb0fc63sTNmy3V4oCD9 J2OrYMMlnxrudCHmpJygFG1sYXWy qqkgIDEsxF5iEAImI9t5BlZoBzY1 UZjzA8LpecS6TECuhOHs PMKvdYBJdN5dvcvnw0uujjtxIuKb BPOyEZm0KMz0HZTahIqmLhUrOBU8 DyQ7KGQ7cGGutO5ukVib lxxbdC7iGai+RXH1fUOpyJZWRC0z OjwvdGQ+LAMnYCK1rJejCMszMNOx wU7mPFAoX9y2KwRgVmD2 DRutL4UpmwQ5PFKtvYMoGRKpwDNL eS0nzysxm3phqnimEgFaPLLsGSc3 YGl0BWFluTdbOfIlZQU0 LaZ6PDN6lKUllG6dxKuzbocewU9f Oyc+FsmtdBimBCV8MCr3L2OwSbs3 GAMkeAzoDS4lkYCtRBuu Wj6vpSgijDocMX2iMHIolayij344 AeJvv9ibJNJuhAFtGAxjUYA9K31j p4O5ZHDtZJAkFHL1zAA4 jQ2fwYcxepjzbCNegMlzsfGxnLwk BLtzARfxV316EAXrkJfqUbEnBRj9 P4CkQkt0BJUnkCjtOT4b yYHlONuqTy9agOigrWdxET3tUAPf kpfgg574RhFtw2kfXJFcrWPbNEvc VHG0K50uf1A7WQIaAERz SOE1oBW5aJ6nyMituxvwsYJkuKly mnKmwZvhEBrqIYprB939STLxpNyp MiIjgGr1A4XkCqv6CDZy dHypZV4azDTiBDxjEi6xgPbutOer FY8eIYRgsatgm679NnQtd4dgXKQp oCGrQIcoPKT6V59nq7T2 YDVpYDOyEAY4uZX3xD2ryBzrcgdf pBWvvRmljnQsqUnfLWkcFAlwI583 IHRvcDsnPlBhdGllbnQg TLkqPGg0G7GeGymkwPC+FU32TPTx TH03qELpuGKzs5bbjAz9ErPfCGYs DKZ3rVxcNKfmm3UdGNAl F23fgUQmb4G5USPmbFymnYUvOxPb eYL7zT5pSVxsdgtdm6foofctNiip e8skai17yU10C72qDFig GQLvJAGyUFXaQVXtgRmmle7qtZ5g Ii8+LBObgZP5mMX4oJ4vWZBzMwO6 BBbxI489VcOaiWCyCayl r8jid5nsyQa7YaQ0YAEuboVshRwe SQE0g8BpRh13T82mMOfwMFMtSTAx LPVlDOWnrHszio1quC1j Ii8+GMWjuGI3tVW0pV5sKoCoTeS1 MJkhJ693VaClhKWrPvnbR56mA4Yl dXA+WZMoEss5FCRkbMem PP3mhVNbFRolWx7qDPE1OyLaSgSw ISdeN7OkLAOmtwdvximucCU9VXXf NMUvwW73Vq2trFpvIDDi fXBIoZ5gmkdlm9qoziaqKeOhGORv EDi5VSo2SYRltPmjWgEgEIX0VyI7 QXA7dXWbmV2ohSxrpbwd pL5mM1ZyJXVzoqjgYe27aW1oZhYl DeN5TYblJso+A4WIOPBFYVKWQI4W PfGNHI27AM71dHZsd6G0 rUQ7L5IjMBDfhagklodxvRJ3FGFu XCXfxX61rERlZPlsMx7ka5Y0g859 OXWyVQCzuS81Uq8bfOqm GMFgmPKJcU2nwlkyn7gepkkxIfZe LVXqSNf1MAu9DLHgyZgmVcYgINS3 AzA2QOK6eIVkcB4boMoj ywgdsP8kAfk+KSClEOPgCHs3Ggzh dGQ+XOAkMRZ9iPazNPzlRURmkU2y FJYvS5l0JqWcHzB0KCbc O4LwSHAvokwqTn82bQ2kJrPkAyO3 YIdvD0SyhsP1QWEhcNPgCGhoNPV1 Z34jl8I2CSPhQSEaARH3 kFX1lC6azYvonlebeLRabCtbwbLg jDwrIHgbLRszA588UNEbbUfwCaO6 LRppWAFhFY13JT51iVAx n2X6oOI0W2ArYKIcvonvvfmmfGN6 BOLlYXVtiS89uATwSAlbCl7cr6S3 q138KRPmIRGfkZ91Bd2y dOdqVGXmjCYTwU2turlyu3ihlnfm MyXiFYWoEZf9HEk2CNValMqvUbXz SGT3HfA0XCO8dDYgoL4u qVoqothknP6hWuv+TUFMRTwvdGQ+ FQGwQQL8cQuvWKreMCGydN5vILUa S4z6HaRuPpS6JTttS6Vb HYQcqojlPe18gM4bYjTyDxW6BIze I5GiusB4MDSusPQqYMtpDFH1J60t j0L0KAIpYRJlNIC2lBF4 hX7qlYqpxoorxXSldMmbprJymGon YMosLOtxN065IQTvyQyzRwDqzCCL sHQyDPG1DJ31DS38V3To PjwvdGFibGU+PHRhYmxlIHdpZHRo IMhcRDPcQiWysLavKP8oTu0uCLQd DOLtvXhtsFPrAjVca5ka KFXiKRvoCU8bbHhiZ8QbjMG2LKUu l1s8Fk86X62eC4MduIB+PGNvbCB3 xSL8mR6qNtJiHfS9SVfx U594FgIhmZTtYydwa8qrz9vedLs9 QxClYIOqnsKnsEhvUAU9t6NmJd20 R35bHOyvEYJmJVHiVWLb EEVvjKerrl2auH7iMa3+PGNvbCB3 mKG1qF4yTjFrBvZ5ARyuK434NuMo yEOaVtgfJ92hL1PjgWT+ UVGuTul1TYObhNwsEQ7piZXuTHtv Mj5eEZT2CzAyDuBhWIsxC8IpHXKl iaefudnqcBP8OVQlFNEe pP77Ln5ozXkuJe6zCLKoNOH9JXFf yRPrA9YarS7gYtPcKYZzTZOcM9Pb tNXjJVlbZ220HJszVyE5 EMRnukSzC0NwWRSqgSekKbD7p9U7 Gk2XhZfovNJsTD9bElUtNZw6J7Gb Xwg7GKGutXpaNT2qkWLk BQzjIn6ftYkpsVjxWL3iKOOvzanj b091UdHib0skNNLpwWSrOJgvTNM5 C52bq2S7COYuNZGvHNY3 jQY5jT0nrJjnbaydlLXncFiikvRm oQamSFcpRXguV564WGSqeFhgPwGY Eic8X7PnKnc9TEIgoYrm CZ4anNWgDHujWn7hmRjfdShtUW2f ZTBqfanpt283WeSne2lzIZIlyVUx LEscWSX7P08tw8R6KECr ZTGbSUH7kQL5fT1bwNedvbakgSFk vPitxvXzuNisYZsiBKepG995HZXt hVosMg3CPou3K9TfZxp7 THCynQluBB0pmZPdSQwgCg4arKjo sXhrZV7zUROvnsiwn698PsZpj4ei OWLveXJaRBsbZKJ2Q73j w5E2BFOoBHEdZBT0oDY4cL0qkOne bjogbGVmdDsgdmVydGljYWwtYWxp W810UGLirTgiNhWeqHQw OjwvdGQ+GR00hm46E5BxUhcuSol9 UPYvCVH6kZL8sV3aWDEnUKapr5I5 jHO0Y6QffaXtmu8ir0sp YXB (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 [facility] Consent Formson 03-19-2024 Consent Forms [id number] Normal [facility] ED NOTEon 03-19-2024 ED NOTE HNO ID: [id number] Author: TED PEREZ CT Service: Emergency Medicine Author Type: Clinical Tile Conduit Layer Type: ED Notes Filed: 03/19/2024 15:47 Note Text: i Normal [facility] ED PROV NOTEon 03-19-2024 ED PROV NOTE HNO ID: [id number] Author: ABHI CHAPARRO MD Service: Emergency Medicine Author Type: Physician Type: ED Provider Notes Filed: 03/20/2024 23:43 Note Text: ED Provider Note Patient Name: Enrrique Madera : 1965 SERVICE DATE: 03/19/24 History Patient presents with: Back Pain: States he has had 4 back surgeries and is supposed to have his 5th in a week. States the pain is so severe he doesn't think he can last that long. States he has not slept in 3 days due to the pain. Endorses pain radiating to his groin and a rikki horse down his right leg. 58 yo male w/ hx of chronic lumbar pain secondary to remote trauma s/p multiple spine surgeries presents with R L spine pain and R thigh pain, atrophy, and decreased sensation x 2 weeks. Pt follows with neurosurgeon Dr. Black, and has an upcoming appointment with him in 3 weeks to schedule further surgery. Pt states that on 03/05 he injured his back while lifting a cooler, and had MRI and appointment with NSGY since. He has had his new, worse R sided pain and weakness for the past 2 weeks without an inciting event that he can recall. Reports 2 instances of urinary incontinence, and ground level falls at home. No fecal incontinence. Concerned with his new symptoms he cannot wait 3 weeks until his upcoming appointment. History provided by: Patient, medical records and spouse electrophysiology tech used: No PAST MEDICAL HISTORY 03/17/2014: Burst fracture of T12 vertebra (HCC) 01/26/2023: Carpal tunnel syndrome of right wrist 09/09/2020: Chondromalacia of right knee Comment: Added automatically from request for surgery [id number] 03/01/2024: Chronic pain 03/01/2024: Depressive disorder 03/01/2024: Erectile dysfunction due to arterial insufficiency 03/01/2024: GERD without esophagitis 03/01/2024: HTN (hypertension) 03/17/2014: Low back pain 03/19/2024: BRADY (obstructive sleep apnea) No past surgical history on file. No family history on file. Social History Tobacco Use Smoking status: Former Types: Cigarettes Smokeless tobacco: Former Types: Snuff Substance and Sexual Activity Alcohol use: Not Currently Drug use: Not on file Sexual activity: Not on file ALLERGIES Allergen Reactions Oxycodone Unknown Other Reaction(s): addiction/former addict Review of Systems Musculoskeletal: Positive for back pain. Neurological: Positive for weakness and numbness. All other systems reviewed and are negative. Physical Exam Vitals [03/19/24712] BP Pulse Temp Temp src Resp SpO2 Weight Height 143/98 76 36.4 ?C (97.6 ?F) Oral 16 99 % -- -- Physical Exam Vitals and nursing note reviewed. Constitutional: General: He is not in acute distress. Appearance: Normal appearance. HENT: Head: Normocephalic and atraumatic. Cardiovascular: Rate and Rhythm: Normal rate and regular rhythm. Heart sounds: Normal heart sounds. Pulmonary: Effort: Pulmonary effort is normal. Breath sounds: Normal breath sounds. Musculoskeletal: Lumbar back: Spasms (bilateral paraspinal hypertonicity) present. No bony tenderness. Comments: Well healed vertical midline surgical scar over lumbar region Skin: General: Skin is warm and dry. Neurological: Mental Status: He is alert and oriented to person, place, and time. Sensory: Sensory deficit (decreased sensation in R anterior thigh) present. Motor: Weakness (in flexion of R hip) and atrophy (of R thigh) present. Gait: Gait is intact. Gait normal. Psychiatric: Mood and Affect: Mood normal. Behavior: Behavior normal. Diagnostic Testing ED Labs Ordered and Reviewed BASIC METABOLIC PANEL - Abnormal; Notable for the following components: Result Value Ref Range Glucose 65 (*) 74 - 99 mg/dL Creatinine 0.53 (*) 0.73 - 1.22 mg/dL Potassium 2.9 (*) 3.7 - 5.1 mmol/L Chloride 109 (*) 98 - 107 mmol/L Anion Gap 7 (*) 8 - 15 mmol/L Calcium, Total 5.8 (*) 8.5 - 10.2 mg/dL All other components within normal limits COMPLETE BLOOD COUNT AND DIFFERENTIAL - Abnormal; Notable for the following components: WBC 12.22 (*) 3.70 - 11.00 k/uL Abs Neut 9.66 (*) 1.45 - 7.50 k/uL Abs Grayson 0.89 (*) <0.87 k/uL Abs Immature Gran 0.26 (*) <0.10 k/uL All other components within normal limits Procedures ED Course / Clinical Impression Clinical Impressions as of 03/20/24 2343 Chronic low back pain, unspecified back pain laterality, unspecified whether sciatica present Atrophy of muscle of right thigh Decreased sensation of leg Compression fracture of T12 vertebra, initial encounter ([facility]) MDM / Disposition / Plan 58 yo male presents with low back pain. Vital signs reviewed, wnl. Physical examination as documented above. Differential diagnoses discussed below. Some concern for cauda equina, however pt ambulating w/o difficulty, urinating here in ED w/o issue, no saddle anesthesia on exam. NSGY consulte (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 [facility] HISTORY PHYSICALon HISTORY PHYSICAL HNO ID: [id number] Author: SCOTTIE COLLINS MD Service: Hospital Medicine Author Type: Physician Type: H&P Filed: 03/20/2024 01:23 Note Text: [facility] MEDICINE HISTORY AND PHYSICAL PCP: Damian Hathaway MD PAGER COVERAGE: Please page 8th floor [phone], non-8th floor [phone] after 5pm . From 8am to 5pm please check the treatment Epic team banner and page the appropriate service attending. SUBJECTIVE Chief Complaint: Back Pain (States he has had 4 back surgeries and is supposed to have his 5th in a week. States the pain is so severe he doesn't think he can last that long. States he has not slept in 3 days due to the pain. Endorses pain radiating to his groin and a rikki horse down his right leg. ) HPI: 58 year old male who has a past medical history of Burst fracture of T12 vertebra, Chronic pain,Low back pain, Depressive disorder, Erectile dysfunction, GERD without esophagitis, HTN, and BRADY who presented with complaints of Back Pain (States he has had 4 back surgeries and is supposed to have his 5th in a week. States the pain is so severe he doesn't think he can last that long. States he has not slept in 3 days due to the pain. Endorses pain radiating to his groin and a rikki horse down his right leg. ) Patient presented to the ED with a 2 week history of worsening lower back pain. He rates his pain at a 10/10 and says it radiates into his right hip and into his groin. He does endorse two episodes of urinary incontinence about a week ago but he has not had any episodes of fecal incontinence. He also reports that he has repeated episodes of muscle cramps in both his legs which make it difficult for him to lie down or to sleep. He has been using a butrans patch which is not very effective on his pain. He did just finish a 3 day course of prednisone 60 daily which he says made him feel better while he was on it but he says that as soon as he stopped the steroids the pain returned. He has a long history of back pain and reports that he has had four back surgeries in the past. He felt much better after each of the surgeries and was pain free for a while. His current symptoms recurred in July last year and have gradually been worsening. He does have an upcoming appointment with neurosurgery but he is concerned that his pain is so unbearable that he wont be able to manage until the scheduled date. In the ED, vital signs were notable for hypertension up to as far as 162/101. Work up was concerning for hypocalcemia down to 5.8, and hypokalemia down to 2.9. MRI of the lumbar spine was limited due to patient's inability to tolerate the procedure. Limited obtained images reveal similar morphology of T12 compression fracture from 02/06/2024. Neurosurgery was consulted and they concluded that there is no indication for acute neurosurgical intervention. Patient was treated with butran patch and morphine for pain control, he is now admitted for further work up and management of his condition Constitutional: Negative for fatigue and fever. Negative for chills. HENT: Negative for sore throat. Eyes: Negative for visual disturbance. Respiratory: Negative for cough and shortness of breath. Cardiovascular: Negative for chest pain. Gastrointestinal: Negative for abdominal pain, diarrhea, nausea and vomiting. Genitourinary: Negative for difficulty urinating, dysuria and hematuria. Musculoskeletal: Negative for arthralgias. Neurological: Negative for paraesthesias and light-headedness. Hematological: Does not bruise/bleed easily. Psychiatric/Behavioral: Negative for agitation. Work up so far has been notable for: MRI LUMBAR SPINE WO IVCON Result Date: 03/19/2024 IMPRESSION: MRI LUMBAR SPINE WO IVCON could not be completed. Reason for cancellation: Patient was not able to tolerate the exam. Limited obtained images reveal similar morphology of T12 compression fracture from 02/06/2024. COMMUNICATION: Communicated with Justus Mcgraw on DATE TIME via verbal communication. Monologist: PSCB Transcribe Date/Time: Mar 19 2024 4:07P Dictated by : BENEDICT REBOLLEDO MD This examination was interpreted and the report reviewed and electronically signed by: BERNARD CARRINGTON MD on Mar 19 2024 4:45PM EST XR SCOLIOSIS PA STAND/LAT 2V Result Date: 03/19/2024. IMPRESSION: Levoscoliosis of the lumbar spine. Postoperative and degenerative findings as described. T XR LUMBAR MOTION 4V AP/LAT/ FLEX/EXT Result Date: 03/19/2024 IMPRESSION: Age indeterminate compression deformities of the T10, T11, T12, and L1 vertebral bodies. Spondylosis of the lumbar spine as described. Lab Results Component Value Date CREAT 0.53 (L) 03/19/2024 K 2.9 (L) 03/19/2024 NA 139 03/19/2024 Lab Results Component Value Date WBC 12.22 (H) 03/19/2024 HB 15.6 03/19/2024 No results found for: CRP Past Medical History: PAST MEDICAL HISTORY 03/17/2014: Burst fracture of T12 vertebra (HCC) 01/26/2023: C (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 [facility] MRI LUMBAR SPINE WO IVCONon 03-19-2024 MRI LUMBAR SPINE WO IVCON * * *Final Report* * * DATE OF EXAM: Mar 19 2024 3:54PM [id number] - MRI LUMBAR SPINE WO IVCON / PROCEDURE REASON: Post operative complication suspected * * * * Physician Interpretation * * * * CANCELLED IMAGING EXAM RESULT: Radiation Exposure: No radiation exposure Intravenous Contrast Administered: No IV contrast administered Findings: Limited images were obtained. COMPARISON: Lumbar spine radiographs 03/19/2024, lumbar spine MRI 02/06/2024 Counting reference: Lumbosacral junction. For the purposes of this report, L4-5 is considered the level of the iliac crest and assume there are 5 lumbar-type vertebrae. Anatomic variant: None. Localizer images: Distended bladder. Alignment: Mild convex left curvature at L3. Mild retrolisthesis of L5 on S1. Bone marrow signal/fracture: Redemonstrated changes relating to L3-L5 laminectomies. T12 compression deformity with severe height loss centrally appears unchanged in morphology from 02/06/2024. No retropulsion at this level. Superior endplate Schmorl's nodes of both T10 and T11 with degree of superior endplate concavity at these levels without retropulsion. These levels were not imaged previously. Multilevel degenerative changes appear comparable to 02/06/2024. Of note, there is severe disc height loss at L5-S1. At L3-L4, disc bulge with decompressed spinal canal, moderate to severe neural foraminal narrowing bilaterally. At L4-L5, disc bulge with superimposed protrusion with decompressed spinal canal, moderate to severe left neural foraminal narrowing. At L5-S1, retrolisthesis with pseudobulge, likely moderate neural foraminal narrowing bilaterally. IMPRESSION: MRI LUMBAR SPINE WO IVCON could not be completed. Reason for cancellation: Patient was not able to tolerate the exam. Limited obtained images reveal similar morphology of T12 compression fracture from 02/06/2024. COMMUNICATION: Communicated with Justus Mcgraw on DATE TIME via verbal communication. Monologist: PSCYomi Transcribe Date/Time: Mar 19 2024 4:07P Dictated by : BENEDICT REBOLLEDO MD This examination was interpreted and the report reviewed and electronically signed by: BERNARD CARRINGTON MD on Mar 19 2024 4:45PM EST [id number] [facility] XR LUMBAR 4V AP/LAT/ FLEX/EX Ton 03-19-2024 XR LUMBAR 4V AP/LAT/ FLEX/EXT * * *Final Report* * * DATE OF EXAM: Mar 19 2024 2:08PM [id number] - XR LUMBAR 4V AP/LAT/ FLEX/EXT / PROCEDURE REASON: Back pain * * * * Physician Interpretation * * * * EXAMINATION: XR LUMBAR 4V AP/LAT/ FLEX/EXT PATIENT/TECHNOLOGIST PROVIDED HISTORY: back pain CLINICAL INFORMATION ( PROVIDED BY ORDERING CLINICIAN) : Back pain TECHNIQUE: XR LUMBAR 4V AP/LAT/ FLEX/EXT Laterality: NOT APPLICABLE Number of different views (projections): 4 M: XB_1 COMPARISON: None RESULT: Counting reference: Lumbosacral junction. For the purposes of this report, L5-S1 is considered the most caudal well formed disc space. Moderate levocurvature centered at L3. Mild retrolisthesis noted at L2-3 and L3-4. There is moderate to severe loss of vertebral body height of the T12 vertebral body with milder height loss involving the T10 and T11 vertebral bodies. Mild anterior wedging of the L1 vertebral body is also noted. Findings are indeterminate. Multilevel discogenic degenerative changes in the lumbar spine, severe at L3-4 and L5-S1 with milder changes at L2-3 and L4-5. Severe discogenic degenerative change also noted at T11-12. Moderate facet arthrosis of the lower lumbar spine. No abnormal translation on flexion or extension views. IMPRESSION: Age indeterminate compression deformities of the T10, T11, T12, and L1 vertebral bodies. Spondylosis of the lumbar spine as described. Monologist: PSCB Transcribe Date/Time: Mar 19 2024 3:00P Dictated by : ROD MALAVE MD This examination was interpreted and the report reviewed and electronically signed by: ROD MALAVE MD on Mar 19 2024 3:03PM EST [id number] [facility] XR SCOLIOSIS 2V PA STAND/LAT on 03-19-2024 XR SCOLIOSIS 2V PA STAND/LAT * * *Final Report* * * DATE OF EXAM: Mar 19 2024 3:57PM [id number] - XR SCOLIOSIS 2V PA STAND/LAT / PROCEDURE REASON: Postoperative assessment * * * * Physician Interpretation * * * * EXAMINATION: XR SCOLIOSIS 2V PA STAND/LAT CLINICAL INFORMATION ( PROVIDED BY ORDERING CLINICIAN) : Postoperative assessment TECHNIQUE: XR SCOLIOSIS 2V PA STAND/LAT COMPARISON: Earlier same day Lumbar spine radiographs RESULT: Counting reference: Lumbosacral junction. For the purposes of this report, L5-S1 is considered the most caudal well formed disc space. Levocurvature of the lumbar spine centered at L3 with Lubin angle measuring 17 degrees from L1 to L4. Straightening of the cervical lordosis with minimal retrolisthesis at C3-4. Exaggerated thoracic kyphosis owing to compression deformities of the T10, T11, T12 vertebral bodies as well as minimal anterior wedging of the L1 vertebral body as described on recent lumbar spine radiographs. No additional compression deformity is seen. Posterior decompression noted at L3-L5. Multilevel discogenic degenerative changes in the lumbar spine as previously described. Moderate discogenic degenerative changes also noted in the cervical spine at C3-4. No acute radiographic abnormality is noted in the chest or abdomen. IMPRESSION: Levoscoliosis of the lumbar spine. Postoperative and degenerative findings as described. Monologist: HARRIETT Transcribe Date/Time: Mar 19 2024 4:11P Dictated by : ROD MALAVE MD This examination was interpreted and the report reviewed and electronically signed by: ROD MALAVE MD on Mar 19 2024 4:33PM EST [id number] [facility] Inpatient Patient Summaryon 03-16-2024 [place] [address] Patient Discharge Instructions Name: CASSY ENRRIQUE Shaila : 1965 Patient Address: [address] [place] [address] Primary Care Provider: Name: LEON MUNOZ DO After you are discharged if you find you have any questions, please, call [phone] ext [phone] to speak to a nurse. Discharge Diagnosis: Prescription Information: If you have been given a prescription for narcotics, seek immediate medical attention if you have any difficulty breathing or any sudden status changes such as confusion and sleepiness. If you or anyone you know is experiencing suicidal thoughts, mental health, alcohol and/or drug addiction problems; contact the [facility] 07/03 Crisis Hotline -Text 4HOPE tu 896873. If you received any narcotics, sedation, or [...] business decisions or sign any legal documents [facility] would like to thank you for allowing [...] Continue That Have Not Changed Other Medications buprenorphine (Butrans 15 mcg/hr transdermal film, extended release) 1 patch(es) Topical (on the skin) every week for 4 week(s). Refills: 0. buPROPion (BuPROPion (Eqv-Wellbutrin SR) 150 mg/12 hours oral tablet, extended release) 1 tab(s) Oral (given by mouth) 2 times per day. Refills: 0. diclofenac (diclofenac sodium 75 mg oral delayed release tablet) 1 tab(s) Oral (given by mouth) 2 times per day. FLUoxetine (FLUoxetine 20 mg oral capsule) 2 cap(s) Oral (given by mouth) every day. Refills: 0. gabapentin (gabapentin 600 mg oral tablet) 1 tab(s) Oral (given by mouth) 4 times a day for 30 Days. Refills: 0. hydrochlorothiazide-lisinopr il (hydrochlorothiazide-lisinop ril 25 mg-20 mg oral tablet) 1 tab(s) Oral (given by mouth) every day. Refills: 5. methylPREDNISolone (Medrol Dosepak 4 mg oral tablet) as directed on package labeling. Refills: 0. sildenafil (sildenafil 20 mg oral tablet) 2 TO 3 TABLETS Oral (given by mouth) every day as needed. Refills: 1. It is important to always keep an active list of medications available so that you can share with other providers and manage your medications appropriately. As an additional courtesy, we are also providing you with your final active medications list that you can keep with you. buprenorphine (Butrans 15 mcg/hr transdermal film, extended release) 1 patch(es) Topical (on the skin) every week for 4 week(s). Refills: 0., OARRS reviewed 03/08/24 buPROPion (BuPROPion (Eqv-Wellbutrin SR) 150 mg/12 hours oral tablet, extended release) 1 tab(s) Oral (given by mouth) 2 times per day. Refills: 0. diclofenac (diclofenac sodium 75 mg oral delayed release tablet) 1 tab(s) Oral (given by mouth) 2 times per day. FLUoxetine (FLUoxetine 20 mg oral capsule) 2 cap(s) Oral (given by mouth) every day. Refills: 0. gabapentin (gabapentin 600 mg oral tablet) 1 tab(s) Oral (given by mouth) 4 times a day for 30 Days. Refills: 0., OARRS reviewed 03/08/2024 hydrochlorothiazide-lisinopr il (hydrochlorothiazide-lisinop ril 25 mg-20 mg oral tablet) 1 tab(s) Oral (given by mouth) every day. Refills: 5. methylPREDNISolone (Medrol Dosepak 4 mg oral tablet) as directed on package labeling. Refills: 0. sildenafil (sildenafil 20 mg oral tablet) 2 TO 3 TABLETS Oral (given by mouth) every day as needed. Refills: 1. Take only the medications listed above. Contact [...] Throat (except strep) NO Fluid in the (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 Normal [facility] MAGR Intraoperative Recordon 03-16-2024 MAGR Intraoperative Record MAGR Intra-Op Record Summary Primary Physician: JACINTO OLMOS MD Finalized Date/Time: 03/16/24 08:54:32 Pt. Name: ENRRIQUE MADERA./Sex: 1965 MALE Med Rec #: [id number] Physician: JACINTO OLMOS MD Financial #: [id number] Pt. Type: D Room/Bed: / Admit/Disch: 03/16/24 07:53:26 - Institution: Case Times MAGR Entry 1 Patient In Room Time 03/16/24 08:50:00 Out Room Time 03/16/24 08:56:00 Anesthesia Start Time 03/16/24 08:52:00 Stop Time 03/16/24 08:54:00 Surgery Start Time 03/16/24 08:52:00 Stop Time 03/16/24 08:54:00 Last Modified By: Shahrzad Ross RN 03/16/24 08:54:21 Case Attendance MAGR Entry 1 Entry 2 Entry 3 Case Attendee Aranza Siegel MA, Diane RN Baumer, Erica RN Role Performed Marketing Designer Marketing Designer Marketing Designer Time In 03/16/24 08:50:00 03/16/24 08:50:00 03/16/24 08:50:00 Time Out 03/16/24 08:56:00 03/16/24 08:56:00 03/16/24 08:56:00 Procedure SI Joint SI Joint SI Joint Injection(Bilateral) Injection(Bilateral) Injection(Bilateral) Last Modified By: Shahrzad Ross RN, Erica RN Baumer, Erica RN 03/16/24 08:54:22 03/16/24 08:54:22 03/16/24 08:54:22 Entry 4 Entry 5 Entry 6 Case Attendee Thu Crews RT (R) Massimo Moffett RT (R) Rashmi Giang MAGAZINE FEEDER Role Performed Ditching Machine Operator Ditching Machine Operator Scrub Personnel Time In 03/16/24 08:50:00 03/16/24 08:50:00 03/16/24 08:50:00 Time Out 03/16/24 08:56:00 03/16/24 08:56:00 03/16/24 08:56:00 Procedure SI Joint SI Joint SI Joint Injection(Bilateral) Injection(Bilateral) Injection(Bilateral) Last Modified By: hSahrzad Ross RN, Erica RN Baumer, Erica RN 03/16/24 08:54:22 03/16/24 08:54:22 03/16/24 08:54:22 Entry 7 Entry 8 Case Attendee JACINTO OLMOS MD [facility] RN, Lianna Role Performed Surgeon - Primary Marketing Designer Time In 03/16/24 08:50:00 03/16/24 08:50:00 Time Out 03/16/24 08:56:00 03/16/24 08:56:00 Procedure SI Joint SI Joint Injection(Bilateral) Injection(Bilateral) Last Modified By: Shahrzad Ross RN, Erica RN 03/16/24 08:54:22 03/16/24 08:54:22 Surgical Procedures MAGR Pre-Care Text: A.20 Verifies operative procedure, surgical site, and laterality Im.150 Develops individualized plan of care Entry 1 Procedure SI Joint Injection Primary Procedure Yes Primary Surgeon JACINTO OLMOS MD Modifiers Bilateral Surgeon Comment BILATERAL SACROILIAC Start 03/16/24 08:52:00 JOINT INJECTION Stop 03/16/24 08:54:00 Anesthesia Type Local Surgical Service Pain Management Wound Class Clean Technique Details Closure Technique N/A Entire procedure No was performed via laparoscope or robotic assistance Last Modified By: Shahrzad Ross RN 03/16/24 08:54:23 Post-Care Text: O.730 The patient's care is consistent with the individualized perioperative plan of care General Case Data MAGR Pre-Care Text: A.350.1 Classifies surgical wound Entry 1 Case Information OR MAGR OR 02 Case Level None Wound Class Clean Specialty Pain Management ASA Class 2 Diagnosis Preop Diagnosis SACROILIITIS Postop Same As Preop Yes Postop Diagnosis SACROILIITIS Blunt or No Is the procedure No penetrating injury considered occured prior to Emergent/Urgent? the start of the procedure: Last Modified By: Shahrzad Ross RN 03/16/24 08:52:22 Post-Care Text: O.760 Patient receives consistent and comparable care regardless of the setting Time Out MAGR Entry 1 Procedure(s) SI Joint Injection(Bilateral) Time Out Checklist Verifications Team Introductions Yes [...] to Surgical Incision Surgeon Review Anticipated Blood No Expected Case No Loss Risk Addressed Duration Addressed Critical and No Non-Routine Steps to be Performed Addressed Nurse Review Equipment Yes Fire Risk Yes Checks/Concerns Assessment Addressed Completed and Interventions Performed Diagnostic and n/a Sterilization n/a Radiological Test Concerns Addressed Results Displayed are Appropriate and Labeled Other Concerns n/a Addressed Time Out Thu Crews RT (R), Time Out Time 03/16/24 08:51:00 Participants Aranza Siegel MA, Rashmi Giang MAGAZINE FEEDER, Shahrzad Ross RN, Verona Boucher RN, Massimo Moffett RT (R), JACINTO OLMOS MD, Dion RN, Lianna Last Modified By: Shahrzad Ross RN 03/16/24 08:51:57 Patient Positioning MAGR Pre-Care Text: A.280 Identifies baseline musculoskeletal status Im.40 Positions the patient Im.80 Applies safety devices Entry 1 Procedure SI Joint Bod (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 [facility] Preoperative Record MAGR Pre-Op Record Summary Primary Physician: JACINTO OLMOS MD Finalized Date/Time: 03/16/24 09:10:51 Pt. Name: ENRRIQUE MADERA/Sex: 1965 MALE Med Rec #: [id number] Physician: JACINTO OLMOS MD Financial #: [id number] Pt. Type: D Room/Bed: / Admit/Disch: 03/16/24 07:53:26 - Institution: Pre-Op Case Times MAGR Pre-Care Text: Patient will be optimally prepared for surgery. Patient is free from s/s of injury. Provide information to patient/family related to plan of care. Verify patient allergies. Confirm identity and verify consent before the operative or invasive procedure. Entry 1 Patient Arrival Time 03/16/24 08:03:00 Preop Departure 03/16/24 08:35:00 Last Modified By: Adrianna Ceron RN 03/16/24 09:10:50 Post-Care Text: Patient is prepared mentally and physically and is ready for surgery. The patient remains free from s/s of injury. Patient/family express understanding of plan of care and participate in decisions affecting his or her perioperrative plan of care. Allergies documented appropriately. Patient identifiers and consent correct. General Comments: Patient to PSW ambulatory. Patient denies chest pain, cold, flu like symptoms. Patient denies diabetes, pacer/defib. Patient has sleep apnea and wears machine at night. Patient verbalizes understanding of post op orders and instuctions. Finalized By: Adrianna Ceron RN Document Signatures Signed By: Adrianna Ceron RN 03/16/24 09:10 [facility] Patient Handouton 03-16-2024 Patient Handout [facility] Progress Note - Nurseon Progress Note - Nurse Patient advised of Percocet prescription prescribed by Dr Olmos today. Advised patient of directions, patients response was He does realize I'm 3 weeks out from the surgeons right? . Advised patient he still has his Butrans patches, per Dr olmos no changes to those, and that we are going to schedule him for another procedure with Dr Olmos. Verified patient had no further nursing questions and transferred him to medical office receptionist to schedule his next procedure. [Electronically Signed on: 03/16/2024 11:47 EDT] Diane Aleman [Verified on: 03/16/2024 11:47 EDT] Diane Aleman [facility] Lab - Reference Lab Resultso n 03-13-2024 Lab - Reference Lab Results [id number]-13-2024 Outside Records [id number]24 [facility] Telephone (NIQ) CASSYENRRIQUE ([id number]) 1965 M Date Time Provider Department 03/08/24 KIAN MCDERMOTT During your visit today, we recorded the following information about you: Dionne Caballero 03/08/2024 10:36 AM Signed Call received for Kian Mcdermott APRN.CNP regarding Enrrique Madera. Caller: Self Patient Identified by Name and : Yes Reason for Call: General Question Please return call Is there any additional information the provider should know? No Last Office Visit: 03/01/2024 Next scheduled appointment: Visit date not found Best number to reach caller: [phone] Best time to reach caller: any Is it OK to leave a detailed voice message? Yes Diane Machado, RN 03/08/2024 11:12 AM Signed Neuro SPINE CARE COORDINATION QUICK NOTE Spoke with patient to advise him that Kian will review his MRI images over the phone with him next week after she reviews them with Dr Black. He verbalized understanding. He is complaining that the pain in the center of his back and right leg is getting worse. Right groin pain also started about 3 days ago, said he is limping some. Taking gabapentin and using Butrans patches. Jaye Fontanez 03/08/2024 4:37 PM Signed MRI is in get images 02/06/24. Kian Mcdermott APRN.CNP 03/13/2024 8:50 AM Addendum Spoke with patient to review his imaging. Discussed that he will likely require a fusion, as previously discussed in office. Discussed that he will need to be off narcotics prior to any potential future surgical intervention. He reports that a friend recommended he see Dr. Black, as they recently had surgery with him and are very happy with their experience. Will have the schedulers reach out to Enrrique to have an office visit for evaluation with a surgeon. He will get upright XR's the day of his visit. He is getting an injection with his pain management provider locally- discussed he would most likely benefit from an L3-4 TFESI. LEANNE Pastor Alexa, APRN.CNP 03/09/2024 9:02 AM Signed Addended by: KIAN MCDERMOTT on: 03/09/2024 09:02 AM Modules accepted: Orders Izabella Seaman 03/12/2024 4:23 PM Signed Pt called AND stated that he hasn't receive any call regarding the surgery date. Pt stated that he is in terrible pain and want to schedule surgery the soonest Isabel Kaiser RN 03/12/2024 4:29 PM Signed Neuro SPINE CARE COORDINATION QUICK NOTE Routed to RITCHIE for review. As per office note -image review pending Izabella Seaman 03/13/2024 11:16 AM Signed Pt called AND wanted a call back from SHOE CEMENTER - Pt have questions regarding surgery Diane Gonzalez RN 03/14/2024 1:48 PM Signed Neuro SPINE CARE COORDINATION QUICK NOTE Spoke with patient and advised him that there is no surgery scheduled until he is evaluated by a surgeon and offered surgery. He verbalized understanding. Also told him if his pain is that severe to go to the ER to be evaluated. Says he feels like his back is broken. Stated he may reach out to his PCP to get an MRI order prior to his OV with Dr Black on 04/06. Will reach out with any questions or concerns. Allergies As of Date: 03/08/2024 Noted Allergy Reaction OXYCODONE 01/26/2023 16 - Unknown Comments: Other Reaction(s): addiction/former addict Date Reviewed: 03/01/2024 Reviewed by: Susana Hooker MA - Fully Assessed Reason for Visit: Patient Question [1477] Primary Visit Diagnosis:S/P lumbar laminectomy [Z98.890] Other Visit Diagnosis:Degeneration of lumbar or lumbosacral intervertebral disc [M51.37] Order(s):XR LUMBAR MOTION 4V AP/LAT/ FLEX/EXT [[id number]] Order #: [id number] FUTURE XR SCOLIOSIS PA STAND/LAT 2V [[id number]] Order #: [id number] FUTURE Prescriptions as of 03/14/2024 - BUTRANS 5 mcg/hour Apply as directed. - buPROPion SR (WELLBUTRIN SR) 150 mg 12 hr tablet Take 150 mg by mouth two times a day. - diclofenac, EC, (VOLTAREN) 75 mg EC tablet 75 mg. - FLUoxetine (PROZAC) 10 mg capsule Take 10 mg by mouth. - gabapentin (NEURONTIN) 600 mg tablet 600 mg. - lisinopril-hydroCHLOROthiazi de (ZESTORETIC) 20-25 mg per tablet Take 1 tablet by mouth once daily. - naloxone 4 mg/actuation nasal spray (NARCAN) Use 4 mg in the nose at bedtime as needed. 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 Normal [facility] Coding Summaryon 03-06-2024 Coding Summary HTMLBase 64 KgpkmqrlHWt9sHk+PGhlYWQ+PE1F KFPfH73fqEZowS6wK1QWGJoYBgtm YALCBAqUZqGvrpTmMI4awRRkRRRp IC8+FA4oNIOiUlywlCThm9C9bXR2 V67zbs9rSJapbKQ6XHXkVhJrebho q1fjlLq8WVozWsdrJiSh SSGziL08RYN2xF95Ro76jKSoyPHs i7hxfGe4XzFwNOHsCKB5pOfhARwz x3TyKSFdC28qiEHxp7K4 RLAdeLefuLNkCcYgzWA9xT3cCPqy rynww9axupbuWoc6ab48pZOpt3L7 eSB8O9TtiaA6HZGomAAp QuazdEJOyD7uipifk7lbrqbuVaDh FAGwCLw1WTi5XUMdwVuyRfCqHV39 KHC8CFGyobCwQ6BjLNOb sYnsRhF4p9T5Tb8GN8JJBrpuW4FH TUFSWTwvdGQ+TG17tb07H2OdJrem Tta9ZEBxEOM2jVK0oF8i YRWaXAwlq7T6uLF7T5QfbwNqek8w e2wkCLIrLUttE47tdBBpy5Q1FBTc nCW9RKMzcEabMhYtsB64 Oyc+OCIcyHiei1UqEibqk5dmq4yz hGm1ChvvMBKqkaTfgSbjASW4d0Ti Np2bYFKeqYC6vYG2eN1p HhYtYpN0JGooG445LcGohATxTlxi A68fW3RrbKD+FVWtLsq9WTJlqFkj SC6gW1TmFXJfffytoRMk aEzgXM9pOARnsjkyIGEusF5kQPAi O5w7TmYjWlS5VZfeH1HrYSJzzkcn Gy14zT9qXcKrUfT0TZuw C6FdbnH4BMSuvBPiUZzjWPN1Y41p a7P7CCMcPOAvTGJ3nKY8oF1efOju bjogbGVmdDsgdmVydGlj HMutCZyxI950RTIshRxyVxGfWXoa ZyBEYXRlOiAgMDcvMjMvMjAyNDwv dGQ+ZUMoRXN6bOjfPSOn vQShRVufAe1xoDtefGfbXA9aIZPo cxvbSPWfsD3zJAWmeWLkmKbcOS5c QVZbqxjjy332YrEnPUG9 PQMruDSiE5ErbS2rVhAnSJBaODHu P7UrpRPqJApfT185ZZgtCqH2YLTg zvMtF7EqQIDjtDqdIvP9 c3I3Kw6Gk7ZelkmyK5DnpGQmRfUy HazjQLj8X0UwNxhkxXL+QD69HVWq ZL77EYd2MCL8cBhgRCax WVGvY0UbcC7wUqOfKCZgGNQwIrw+ PHRhYmxlIHdpZHRoPScxMDAlJyBz tJxzHL4eSh5sFLOzOUSf wXcbbJVuShGia4wfGYEdNQgmYC9n fDcyL7BrlRO5IKPmk7f8Vq96R93v D1GgnPY+BQAisQW6wKN1 cQ8bKnVdDgE4MSjfQ233VyUreUUs Brvuc3viu8yevVn0GvO0UDRpjtUa xEtbEYU8p9ExXb17J25r DKmhYEJkZJBkBCPvSMGyuUhwdo5z sW6cRu3+NWFueDL8rAA9dW6uGaMm KjY7FCqvV729GvCtoNLi Jqiax3uav7knkRo4IsTpDVSanwZk tJyjIVY9j2KeDy01D3NnkTexw1Bv Tll1lc29vYVdv7X8aKP6 X6ErTNBqzeysmRWvqKgzIZ2eBHXj rtwvJIPqnY7bWOKgA9c6GxYyMxX5 GMrcZ1YwxgO8UPAoeOIi WKEiiMFPjN8dltvwt1llxywsEwTl KLKqFIv3MLm2WPHseAbaPmRmDRX3 JkA3WFM1zBVdmC1hsExz rmdjfC6qZbm+GOF6qMSeeQXTKZ0o OjwvdGQ+MQJdIOX3nBkjJZokULQj fA4kMUYbA5y4MtHdMwO7 GFlxY4IjkqP1HDNwqEZbXKQtiJRI oP2tqtwzy6eskybrVvRoVVEoZOk5 VQq9BRKfgPtgVaMkWHQ1 WfE9NWC0jPAxtL3btNxtxibkeB6c Oyc+AbcoqDryEME5UEg4R2QyBgd7 FGZkpTrlZH2dqLKfEHxa Ua7grIpfaMozAN5oWHEghxtkr574 HzZnm4jrHCMtaPEnDEtcWZM3B15v o9Y7CMJzOBIcCGU1qAD8 mA9agFmpfkrenUWktUqezcRquYli GTveAGfiP113UOSwpInpAnYxBOt4 A3MxIjg4FHHdePsgPW6o wTNbTQmfJe2imRvivVxsJR2lQWAk hcztn888NcJik7skSEUzyDOzMPvp HUJ1K73fe9U8WFSeSNFw DME2cDK3oJ1fjWkcozfinJVxrRbz qtMluSapPZxlVDfeV893TFNzcLpy BqYtlPa1C5BzWit8LSJu zDmyXD4hzQInWSrtHr1cpUvbxYxs ZO9eIINbvbqfz426UnEur6mxGUAd oLDaGMnfVQR4X25bc5Z8 TDKrVKScVAY2dHG7pE8txRuufywa xIXjaLxcbfMdeZasLBpyKBojN354 IHRvcDsnPlBhdGllbnQg KYlkDJl7U9IlLoqjrNI+EQ19SJVo FR11gDOzjKZur5kudPv6HlHoJXQl NXP0hFasREsbz8EiNQEz X04yvUGzj8E4HWHppBhirWPyFiOz gSF0jG3aVEtrikekd4nbmarxIxwq d2tbxz45aB08U46bSTjh MMXrVEErLSRcOGZocFflvq8vrB3r Ii8+FEYhvHV9rKP2bQ9qFBAcOoX6 DYhuZ035OmOldGLfCfdg f8oov8whzDz9TuT6VFEvuyIgiKzt GOG0x8DcVg35B23wTBdxHAMlKJRr ZCNnYLWljOjorx2ggU7g Ii8+HHZuhCC6aQX6nE5tDsOwYjJ9 BXvjW745YaNknARoOuwnT48cB8Cd dXA+WJNnAyz2RSTdkQgr SG2voAVaKGycLh1nUGW0WjAaKjAh EVxmJ0KsKEPyqkuwvrpouNI5IRAf NPKlwR47Qg0leVbiYZRl zQYVeP4hcohyi3tzznvdVpDiTKZq TRp0WWr3IVWufJmyRjNlTGL4FqS6 TLU0dIOuyG3tsPjfafgn eO2cV8NdXMZlmyozOh41lC2rEhFt LgF6IIyvKcd+G1JHJQHFEPPUBO3J AfOGFA50ZC76tMWai9H1 pCN1Q9WrJAUsyizthkfgpQF5QMBq IBXarK93jJEpKZuvHs7jw8C0r567 SENhRSEorW25Xn0rtIan SDYhxKKCqR4vhtmhd2yrolrrOfTz GGZnANf2VVb1HZCydSodLpNkMJK1 MrC1YOI7yEDmkV2seSki okrwzX1yGtl+BYAcRYEsEAv8Zaai dGQ+ORSsPNC5nOydTEgnDUNhmC8w QFMfY6a7WgMgNnI1PTzg S6ItSHJepfntTk25nH7oHnJuMeD2 ARdiC2NufhT0ZAKxjKPhYCzfMXD9 L16qo4I5LRBvVSUuWAY3 zZG5hG8ztYvgwmtjaIKbnMfemtPv cPodSEpdFIgqG788PJMolLiaLqV3 TLkkAJExQX30QY21fHMx f3Z4rIR4X8JtUDEvjosyvomslZI5 DOWbBHHamD84bFVoHNcsJb7wu8J0 x848IHXoIUFjwJ94Sb9c oUtwNEMlkDWTsC5fjvsoi9gisyde AqZdRRCxHKi9IVr5IVGqxLhtBbFh CFO9ViS3AOC3uFYlmZ1j cLjxpsmteC4mMnd+TUFMRTwvdGQ+ VQYjPPY1sUpjWMzhSQEvhI6zBCOo C1r0QaYhVwM5WFjmA0Uz XBNbcpriWp05fT2xOzQrFhX1XOwt C8YgrkT1PKQqpMCdUAzeVJW1N39g h0B5HAOhARPpIOE0fSX4 eE6zgPihrnuxdAIebDxtwsBpaFfj WVdpCJegP960GJEfvYuxGdTysHAJ dGDvUNP3PC73FY88B9Iy PjwvdGFibGU+PHRhYmxlIHdpZHRo IHshAWUfOyHxkSchPK0hLg5jOSWe VTHslVkmmWFkLyXsf5ir WPVzYEcxYO4muTplJ8GzdHF4UMEj m7a2Du77B65fX8NxuBX+PGNvbCB3 iRT7yJ2dCdGdKfQ2BCkz E204RqEucXAwZucvt9uxf2bpdLs7 XhIjGTRsdfFuhUfvBQQ4s2GzKj26 P54vDXqkVMLyFRMdMNBi BUMmmHihyk3cdA0hRb5+PGNvbCB3 fOB2wC7rNoXrCmO7JXxbO372KxFh kJWvEsfsU23dF6PydIU+ ZRUwOsg4BVCivTliZK9yrPBmGSmb Ze5eYHE4XbUaMdZwLNdxO5ZjRZGv cyjqxtsceVJ9CLHzACXu wB34El0ovXzmMr9qTHFxZVQ9PBHa gLWoV2QdkL3wRyGbUUTrNOVwV5Li lIQmYDqfI248PPuuHxJ2 PMKtctWiJ3XdTMBbiYykRgX6d8V7 Oe6TtQvikNQoVP1jAcGuQSz3N4Ei Psx8JHAxoYwvUG9dgSMm RPzxGk7vdRthdHwzJS8tPXCikoty e531WwHvu1moAIPpnLMjGKyiBZJ7 D02sl3N5PEJpDHXaPDE3 vMX9eO4ugQyvrywedTBvsZojceDk iWcpWFefBJmbX293YIIyuVowLcYF Tzk3I5VfIcq4EBNidSlu GM3tnBOwNTzlGw9pvCxivYifNK4i NJLvjfpzi018QkPhy5vuRXWbgZIm RMzqHYK6B82kv2I1XMLs SVAhRMM9dUB6wI5kvBgchagfmZCl jVqdmyJjxHtpNLhnHIwxM908BQJq pYncEi7EWov4G0HpJig8 COMaxAfmNR6diNCjNWkvFp8tcVgf lPisGK3iLWZaolvqe527OsNqe8pm YXQlpOOuAOktLDN5B03c n4Y3FHKxZRInWGR4qRW9pN6cjZvl bjogbGVmdDsgdmVydGljYWwtYWxp H618TQPlvJwoCbDzsGEz OjwvdGQ+UD57qx19H1LlJaafUxe9 XTKxFSX9zFG5zY5dVCIvIXcbf9M3 cHZ9F7TpmbVtkw0po5qt YXB (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 [facility] Progress Note - Nurseon 07-2 Progress Note - Nurse Patient called office to notify that the Butrans patches are barely helping his pain. Patient requesting provider increase his dosage of Butrans prior to picking prescription up from pharmacy on Tuesday. Notified patient office would talk with the provider on and call him back. [Electronically Signed on: 03/06/2024 13:33 EDT] Ayden Lovelace RN [Verified on: 03/06/2024 13:33 EDT] Ayden Lovelace RN Provider order to increase Butrans to 15 mcg patches. Called [facility] pharmacy and cancelled Butrans 10 mcg. Called patient to notify that the provider is increasing the Butrans to 15 mcg. Notified patient he is not to use more than one patch at a time as it will be above the recommended dose. Patient verbalizes an understanding of information. Notified patient provider also ordered a topical medication that will be sent via mail from [facility]. Patient states he is willing to try anything. Patient requests refill of gabapentin at this time. Patient compliant. OARRS reviewed. Prescription proposed to provider for review and approval. [Electronically Signed on: 03/08/2024 15:29 EDT] Ayden Lovelace RN [facility] Consent Formson 03-05-2024 Consent Forms [id number] [facility] Inpatient Patient Summaryon 03-02-2024 [place]patient [place] [address] Patient Discharge Instructions Name: CASSYENRRIQUE : 1965 Patient Address: [address] [place] [address] Primary Care Provider: Name: LEON MUNOZ DO After you are discharged if you find you have any questions, please, call [phone] ext [phone] to speak to a nurse. Discharge Diagnosis: Prescription Information: If you have been given a prescription for narcotics, seek immediate medical attention if you have any difficulty breathing or any sudden status changes such as confusion and sleepiness. If you or anyone you know is experiencing suicidal thoughts, mental health, alcohol and/or drug addiction problems; contact the [facility] 07/03 Crisis Hotline -Text 4HFXK to 233080. If you received any narcotics, sedation, or [...] business decisions or sign any legal documents [facility] would like to thank you for allowing [...] Continue That Have Not Changed Other Medications buprenorphine (buprenorphine 10 mcg/hr transdermal film, extended release) 1 patch(es) Transdermal every week for 4 week(s). Refills: 0. buPROPion (BuPROPion (Eqv-Wellbutrin SR) 150 mg/12 hours oral tablet, extended release) 1 tab(s) Oral (given by mouth) 2 times per day. Refills: 0. diclofenac (diclofenac sodium 75 mg oral delayed release tablet) 1 tab(s) Oral (given by mouth) 2 times per day. FLUoxetine (FLUoxetine 20 mg oral capsule) 2 cap(s) Oral (given by mouth) every day. Refills: 0. gabapentin (gabapentin 600 mg oral tablet) 1 tab(s) Oral (given by mouth) 4 times a day for 30 Days. Refills: 0. hydrochlorothiazide-lisinopr il (hydrochlorothiazide-lisinop ril 25 mg-20 mg oral tablet) 1 tab(s) Oral (given by mouth) every day. Refills: 5. methylPREDNISolone (Medrol Dosepak 4 mg oral tablet) as directed on package labeling. Refills: 0. sildenafil (sildenafil 20 mg oral tablet) 2 TO 3 TABLETS Oral (given by mouth) every day as needed. Refills: 1. It is important to always keep an active list of medications available so that you can share with other providers and manage your medications appropriately. As an additional courtesy, we are also providing you with your final active medications list that you can keep with you. buprenorphine (buprenorphine 10 mcg/hr transdermal film, extended release) 1 patch(es) Transdermal every week for 4 week(s). Refills: 0., OARRS reviewed 03/01/24 buPROPion (BuPROPion (Eqv-Wellbutrin SR) 150 mg/12 hours oral tablet, extended release) 1 tab(s) Oral (given by mouth) 2 times per day. Refills: 0. diclofenac (diclofenac sodium 75 mg oral delayed release tablet) 1 tab(s) Oral (given by mouth) 2 times per day. FLUoxetine (FLUoxetine 20 mg oral capsule) 2 cap(s) Oral (given by mouth) every day. Refills: 0. gabapentin (gabapentin 600 mg oral tablet) 1 tab(s) Oral (given by mouth) 4 times a day for 30 Days. Refills: 0., OARRS reviewed 02/14/2024 hydrochlorothiazide-lisinopr il (hydrochlorothiazide-lisinop ril 25 mg-20 mg oral tablet) 1 tab(s) Oral (given by mouth) every day. Refills: 5. methylPREDNISolone (Medrol Dosepak 4 mg oral tablet) as directed on package labeling. Refills: 0. sildenafil (sildenafil 20 mg oral tablet) 2 TO 3 TABLETS Oral (given by mouth) every day as needed. Refills: 1. Take only the medications listed above. Contact [...] (except strep) NO Fluid in the middle (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 Normal [facility] MAGR Intraoperative Recordon 03-02-2024 MAGR Intraoperative Record MAGR Intra-Op Record Summary Primary Physician: JACINTO OLMOS MD Finalized Date/Time: 03/02/24 09:59:42 Pt. Name: CASSY ENRRIQUE Carter./Sex: 1965 MALE Med Rec #: [id number] Physician: JACINTO OLMOS MD Financial #: [id number] Pt. Type: D Room/Bed: / Admit/Disch: 03/02/24 08:41:01 - Institution: Case Times MAGR Entry 1 Patient In Room Time 03/02/24 09:53:00 Out Room Time 03/02/24 10:00:00 Anesthesia Start Time 03/02/24 09:55:00 Stop Time 03/02/24 09:59:00 Surgery Start Time 03/02/24 09:55:00 Stop Time 03/02/24 09:59:00 Last Modified By: Shahrzad Ross RN 03/02/24 09:59:33 Case Attendance MAGR Entry 1 Entry 2 Entry 3 Case Attendee Aranza Siegel MA, Erica RN Gonya, Kellie N RT (R) Role Performed Marketing Designer Marketing Designer Ditching Machine Operator Time In 03/02/24 09:53:00 03/02/24 09:53:00 03/02/24 09:53:00 Time Out 03/02/24 10:00:00 03/02/24 10:00:00 03/02/24 10:00:00 Procedure EPIDURAL STEROID INJ EPIDURAL STEROID INJ EPIDURAL STEROID INJ TRANSFORAMINAL TRANSFORAMINAL TRANSFORAMINAL LUMB(Bilateral) LUMB(Bilateral) LUMB(Bilateral) Last Modified By: Shahrzad Ross RN, Erica RN Baumer, Erica RN 03/02/24 09:59:36 03/02/24 09:59:36 07/19/24 09:59:36 Entry 4 Entry 5 Entry 6 Case Attendee Massimo Moffett RT (R) Rashmi Giang MAGAZINE FEEDER JACINTO OLMOS MD Role Performed Ditching Machine Operator Scrub Personnel Surgeon - Primary Time In 03/02/24 09:53:00 03/02/24 09:53:00 03/02/24 09:53:00 Time Out 03/02/24 10:00:00 03/02/24 10:00:00 03/02/24 10:00:00 Procedure EPIDURAL STEROID INJ EPIDURAL STEROID INJ EPIDURAL STEROID INJ TRANSFORAMINAL TRANSFORAMINAL TRANSFORAMINAL LUMB(Bilateral) LUMB(Bilateral) LUMB(Bilateral) Last Modified By: Shahrzad Ross RN, Erica RN Baumer, Erica RN 03/02/24 09:59:36 03/02/24 09:59:36 03/02/24 09:59:36 Entry 7 Case Attendee Shikha Guzman RN Role Performed Marketing Designer Time In 03/02/24 09:53:00 Time Out 03/02/24 10:00:00 Procedure EPIDURAL STEROID INJ TRANSFORAMINAL LUMB(Bilateral) Last Modified By: Shahrzad Ross RN 03/02/24 09:59:36 Surgical Procedures MAGR Pre-Care Text: A.20 Verifies operative procedure, surgical site, and laterality Im.150 Develops individualized plan of care Entry 1 Procedure EPIDURAL STEROID INJ Primary Procedure Yes TRANSFORAMINAL LUMBAR Primary Surgeon JACINTO OLMOS MD Modifiers Bilateral Surgeon Comment BILATERAL L4 Start 03/02/24 09:55:00 TRANSFORAMINAL EPIDURAL STEROID INJECTION Stop 03/02/24 09:59:00 Anesthesia Type Local Surgical Service Pain Management Wound Class Clean Technique Details Closure Technique N/A Entire procedure No was performed via laparoscope or robotic assistance Last Modified By: Shahrzad Ross RN 03/02/24 09:59:38 Post-Care Text: O.730 The patient's care is consistent with the individualized perioperative plan of care General Case Data MAGR Pre-Care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 USXcjVukoABbNlOhuQC0lM0iZQah lhkkr1tvumxpWvt3uq39vJAmx4D0 zYE0O9SpdjC9EPHimDWq YwobxWHCeO5xijwso5wsqibsVlHa VDJaOYc0YSu3UVWtoGzxCbMhSP47 VGY5WOPtdtKtN5IyRCFo zOavIxQ4o5T5Rt3ZV6GBTtemF4HV TUFSWTwvdGQ+WO92cw89Q0YlYgde Erv0CPFqSPE8vDI8rR6e VQKwRPquz8Z1qDI6Y8HaztObcy3v k8cdOORpMFdyB80siLKrz4Z8BVRt eZD5NCXvaOhuAlGlaG59 Oyc+QHFfoTbpk7HdHuead5qtr7ro nRl0ZgafKCYlqfJutQaqEQK9q9Ct Bv0oFEXusRU9pKA6zO5m WzGsSzR4PAqvH131VsOlrRUwRsce I53wH6XioLG+FMYiBnd5MXKsgWsr KB7gL4YtMJJulvjqyBNw xHjwMQ4sQMLcupplKIMssZ4mNRKb M4r8GlOhUmP8HPygA5TqFZBxizaw Sa23cX0pTfZpHwC5NPmp T6OlcqM9YIGguWNhSQhgUWR2N44b m3U3EERfZMCiIZC7sCH7qH5mbZki bjogbGVmdDsgdmVydGlj LMdkKTpwB400WMGkgYmuQkSfTIha ZyBEYXRlOiAgMDMvMTIvMjAyNDwv dGQ+TETeHHY3hIamDEZn vIBaAFamXs0rnTravKcmKX3hVALv mmzuJZFwqD6uIEWzdRUiuQxvMW6j GBRnnuwtd180PaXfNAS5 JUFshEPxP0CvbT0zCdGrUORlJKPn X7SemLBoDJqeW875HYnpDdM4DVRq tdWfX5WhTKPkbLymLzY1 o9H0Jy1Wz5XgxpsvT1AkqPOkHiHg ZpboKGd1X6PoXsbksUW+PU01DOBk OC11MSv2XPJ7tHzgMAoz HHEzQ4KbpN3iYhDjSOGpJQCtXuc+ PHRhYmxlIHdpZHRoPScxMDAlJyBz pLpnIM6iHq2vYGSbGMSj tYrhyENtGlGqo5npWDCuMEniEI2s sEfwA9PftEP8KIMyf2o4Fy54K44n U0LpmIX+RJDypAV6aFS4 uG7zCcBmBwT2YXqtW679JdUunXRx Zhlzj0fnf1jezUe6GtZ0ZXRksoSh vPmuKUS7j0KlFk79J66u CRenDPLwQLWzZVMiMFGweEcjvm6h lG4sWf2+QYOutLZ0oJA0wM3gYjTj YmP7GDnfV210JxQlvBRz Jnpzv6oig1ckdLb7FlOkQKKhiyRu sNckFEO1w5OnSw42L4LpfFfmj5Yd Asz3tu48cNMku7L7iIU7 M7RfYQKielvczEBjfZbjOS4wAOYe kraaGGXxiD8lESVfC4d4SfJwWiU7 SPwqW0MpitV1JAXctGDi IGUsjQRJlE9dvwauu6oaglxfCeEm PBEyJXk8KNq3HDRaxVvxXdJdWIH5 HzO7VGF2kBCigE3qgBey iirdtL3vXer+HZF3iUTqlLIJLS2o OjwvdGQ+DGGjSDX4vExxEJogDPQn nF9tSBAbT2q7GsQmBoF0 DKncW2UojbL3XSPzzYFeSUVoaHLC uW4rrkrxi4hjbyycRqPxQWRvWHz3 QJz8AQRwcQkyVtFgRBY3 RpP9YLX0qNQdwU9upAvalrxzqZ6u Oyc+FistaZspLAT2TUh9P8WbEso3 PWPojWgdXF4ljRIwMIak Dy6fkPeslMysVL0gEETrvwhrt164 IqOnh1meKRIxhFSrIOnzGUO0Y79z m2D9KLScANWwTOR0eBS1 hK5yuPrdcseqjJTjwYdlilEgnVxj NOxwJJlpI810ELHzcHfhMnHfVUe4 U9QnNma6VZZzpZwmKS1b gAIuRRcdBb7mjAfowVjeLM9zDSUm kkdjk069TrWko0abBVHbqZPxFJmx VYM7X01dp4T8VSDhEYDv QJY0tOD3aX8wuCahsxpbnDIsgGyg oaSzjNvgXUynCAurX185LGUwqLmh UgCvpNg4P3XjLhc3XBMq hCirQA9owYVuAHwnNz5kxOepmWxl TV6pVZCbahejc148BkRxl8gbVKSx hJKmZDfiXUL1H53ru5S6 HSCyRFEzXDA9iZV5kK3qnPnvdbjk kPJycNcswkUncUwuBBmxSZpfR747 IHRvcDsnPlBhdGllbnQg EAucXCs3F7LuQounaAT+MO74YMBs QS91hVZfxFBqm6afmJy8CtBdRFUd PBC2zMjfJTzgd8QzBMYa U69kvCSti9D4YTMbmTgwjKZoMwXq hFH5gI0aSOxyinugz0qzcwlnPnvj c8gwlg62cR78Z77jDWyr QPNeATWyAFDvJPLcmMvcio4zkA2t Ii8+IJWkmJJ9oKM1pZ1zNMDvQdF9 OXfdA759RcNgqEUlGdfz n8gbv2pkpOl7BbY0THNodzLwyXsk WDQ8k9TjMj17L81zTAxyBYYlFSIa TPAxFWUiiGikok5sdW5j Ii8+AYDrxRI9jUK2zK8pJfPdTxD1 TExlH702JqDazXTcScgxB51zI8La dXA+EPHyBjl3TFFwnRrh OM6tlKFuSFvjGd3mOFO4AoAyRoIn UMvfG1GhGXSipifcvabdiYS8TWVg LKQyfO43Od6wkZanDJAe lJUEuG0uyiwhv4blbtpsBmAqCGAo JBa4PVa7EASwsJlqKlHmSTG8XrF7 FVY8sIZwnX5cmJeajbur tJ5cM2OxZXUeoxsrFl76wP6gRmJi XbP6EQdmJkx+A7HIBEPIXJVDTM1U KcACAW98NZ80rYCfo6X8 rBO5F2RrOQHdujehvgkrbXZ4OIWi HDQlxJ02gWCnQJftRd6ry6F5e973 SEOjOIKbsJ13Xx9clOmf TDSigKZXfK1sqljvy2dqhhxfOgYf KGLxMSd2BNh5SZItyMsnAzIgQAN9 OjG8GYO0vJXokB4nbTfp iqeagU6vUpp+VIBrGQTqLLx6Vxtw dGQ+LAWdIUV3kZrnMXajWOLjkP0h NTWxS7s2BuViCvW9SSwo X7IfVDDfplbzKx02lX2oKvHyAcC6 PYucL5HdddK2QAXfiDOdIDyeUCB9 H40kh5B6CLCvFGSeEMC0 lHC8rH8jqPksjufwqUEgoPvigiYt fExpXBvqOYuoE464LETwrTikSdM5 DRruBWAhHF40DH04kXUz z9T8lXD9P4CuPNUjemlubrwutNB3 DGNkLWEgtO31oDWcTJciZg6jy9V4 z607QJZiXGMceP62Ww3f oWsvSXUwuZOZvE1qdqnnw8mfcwiy HuViYPCjFEl1AWn9NQVhlPdkAkIr SXZ7WsH1ERP0lGRkmJ7b lMouqofbcW5lEnc+TUFMRTwvdGQ+ YGReTYN3oPnxYHxyJHDrjL7yBHDu K1v9AfOhRzL3RSunP1Qg NAQsklbnMu79kB3qJhMeKxZ9TIzf A6JmenL1UFZmcWFcCYfwIQS5E05j z0Y2JGZrXLIoHED3yXB8 iZ3rqBpbhgfjoCRnhCaijrUqhZsb AWekQMibD133WBQxyEhuAi9PZR25 CL77I8OfKmffrHDmaBI+ PHRhYmxlIHdpZHRoPScxMDAlJyBz vEfqWU0cYp3mJWBzCITlpAkiuUGr RbVdw1okLFTuMAytGU4i wDtzB8CdcYG6WZUvn7j4Ji92R95t Z0XsoGV+TLXwrSF5mPM5iW0mFvKy GnZ7YUjiM883FiNlbOXd Uying0sox3cebXm6ZoQeJOUiqaXv iYszVIC0z1KaQs46H68vPFrrOKVi DOPuUQVqBBXgmVzgfr9s cB7zXx8+SGNpsHJ2oLU5tB7vVhCb NqS1LYnhJ424ZcQcaQZzGnzxU03c H7PgiFV+DCSpNnu1JERx tYwvQQ7rlKXpBIooDv1wBIY0LbDd PcNsXEylU1UlYEXslzkdzoyljRH6 SILdFWNblJ51Ui6mhQvm Zr3jDJJpXNF9OXVysRYvL9QyuV8p UrTrOXTlCBIqO7RfoOBlPUkkZ031 LAwtBiB2GVUdteSzC3Nl HZFteSccMdP2x8L6Fi4PcHjesCDa KD4zRbRzAQm3X5OjCax6JKAafXbn RB5pqCEgONdpGh6cmKoh dLqbTW3jCKTtlvfqu425LrEvd4ee YCVemJVvLHxmOUA0J12lp5X7LFWe ZOGlZMU4lJF9bG7bdYbi bjogbGVmdDsgdmVydGljYWwtYWxp P290KWWsrVagIdKLBtz6M6InZyu5 PNGkhPbrSN1grZPeRGzp Yw7mnCvydXahUT1lLRVtapkqx962 RgJbx5kaASSbtFOmUDkfHBR4M43q y7S0AMCzZFEiWXA7jVW2 eM1ucEhqmadcwYUrgDywefVvbCim DOmlSAcsP299QTCdwKpiVw5TDlk3 Y7AxYir4ZFJscJocAS9e bNCsOWkbJa7vfWbjzOyzKN7bLGFv rhxon549NkFaz1qpKEQbaOHuTIta IWI2G47kb2F1NYNeBWFx LYX0dQV0aK7gvJecbpkccYSqeHjr cjMybNfqSHqdLKfoF199KXIfiDio PlBheWVyOjwvdGQ+PC90 qm77G6OrHhycJfl3UDDhUBV6dOG3 iS8lDFZuCPfib7U0cKH9X1DnuhGw eh1dj7dnYHClCAvnK91j bGF (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 [facility] Coding Summaryon 10-24-2023 Coding Summary HTMLBase 64 CtkakkxjTFu6yOx+PGhlYWQ+PE1F OSXgH84hvVRxuH3mL9SXJOaLKpuk GGGAOQeZLiUpxhTlJJ1ehCXwKYJu IC8+XO4bXQBmZikbyWIhi3K8fQA0 A06jae2iVSwkgDI5NCRaOkSkummk r6ropIl3WXwhQflkCkYw DVIjxF87NOA1yN77Rx76oWLdtFDq r6jmmBm2ZqKpFFUoNQZ5rVfiBWdr n7NiWFKiG27iaLUat7L9 CIRtdKmmmWGqLeAtxZW8xO2bWYua luozz6bhphnjXua7jk35eEFvi5L7 fTV1L0PrekS4UVRluFUb JymmuJHInO6kitqnd5knueljLiMb PWAdVVb7HUo4ZAWrgFxnEsHpJN27 QVD3UXNbfpCgR1EoTGCd fSnlNtO7a5D9Ts1PX0BKIrydR0RZ TUFSWTwvdGQ+JE88qt98J9DfZjkd Cwx4CUWqEWY1kZY0oJ7q YNYsFMgtw2N6sVK6G9IrnyUlrq5h i9hgCNImYLijE86nmWGvs6M7GFSd qKL1QIVltOneDjXknI82 Oyc+MUErbMose5LhDsasj7wbv3ea hDl5PgvrFJUuxpYpyLomPTY1c8Ek Dz2sLMXxdKY7dSG9yT8c JsEhApF7GYgxY674WvBuyIPjBoex K37gQ2QlwPU+FWTlUsz0SSRhlYea CO0jO2DwTMKzchzdqMFh hDjsRT2jEVAwaeebOMHmjH2gHHXq Q0r5XkTzOvF9FCepW2UpVKMyymey Dx10dQ2gAiFbKfV9RItj T7FloyS2CDHezLWwUCzwFPT5X49v k6U1FJFzWXRuNSO5qWA5tL7znBzv bjogbGVmdDsgdmVydGlj KRkvOWgsE608ARHazThvTnHaGOek ZyBEYXRlOiAgMDMvMTEvMjAyNDwv dGQ+JCZoDVH8dHsbPMIt yERjJFhgIs2dpMcdcMzbZP8vEKRp jrppJXCsdJ9eRLUqfBInhDwfJR3m KPQumogst486RjTmCLW2 DKNqhEZjR8GwhQ2iBdZcFFMrJXSl E8TciWMrSBqdM252ZMidHgV3ALYg uhMoV3OnTSPooXenTpF5 s4B3Wp5Kk1BbbrjaR7GjkHUuQiMu PzndOUw6B2SiBvkxcJK+VW52IRZf WZ42QSd9ZTW8vRbvSNaj XHNpG6SrzX6oGwWcRGMcXTZnMas+ PHRhYmxlIHdpZHRoPScxMDAlJyBz hIfhWX4wWn9jBUGiFQGu rRhakBPvGwNvi4etDYVgIRdyHL5v tZulB4QdnPR2XZXlc7e0Ds93Y33z G5BzhPL+MDWkjEF6sJL2 aS0xRyFqQnR3AUujB223KiOypZQd Coppk4zma4tlqCx0PwD3SQPxdfMv vZzeKRB2q7GoNz45B88g EQawLALeALVlMGVaIZWlfUnxxr7x zZ7vIm4+IMOvyZE6dGB5xH8bKtUx UjP9RHbrL983MdYwiEPk Bafcb0ilo8phpOs5CaLcLEFyriQe hMrnJBT1f4TnEx27S1DkwWimw6Xu Ots5zh29mEFql6L8kEL3 R0XqZVBpacpdxZAflBjrYB9tOGDx eatwWQIfeB5wNDHoJ0u3XkRwOmY4 TTwnF0HbrsC4JVQwoPVg ATBemPHNoX2punnch0aocdruXxUq AVXxPJm6XQt9ZUXszGcbYvIrEVM3 TqC1DAQ1gNJdfP3hmNnk xqgfrT5rIsn+YZC8oSHtvUCFWT8x OjwvdGQ+WUWqAEW7jMnvMGmfJBNb rC5oZNDoO3m6OiObPhB5 XYezB1RaxfJ1UJZvzQUyUQKloJFU wR2pgluel6wqrfxoNhEmRGCbOZb6 OZh2EFNchMyuAcRaMHW3 FyS9QXM3kLCbjA8umGtgaxrxgL2o Oyc+QikkjJjtYKD3XZt0X3QbMik6 BZXqfEavDJ0vxWAxCIpe Np2vlDzbpQbzCV3rACXqlhbjv870 JkHti2khNSLggQVfPMksFVR7Z42v z1M9ODBaWHYiHVO0dFQ0 aY1wkXhlvegtpLDbmDeazlNwhIii PUphTRioR212XFPfoTkiSvMmFVh6 W3KsNcq3CDRrnYqpWK7q bRSyZXpyYm2tpAbgiKyzGH8pPNCr hbdku186ArOdd5vgGNPvsOXmPAqf ZON0J51li5X2NIUyUWTl DHF6lSQ0pC0hxTtfmcpnhTOpeBdy mxFtgKgzYBjxJXrzP202AXRrpBur PeFeeHo2U5UlSom7FAXu zAdkVB1dvYCjVDsfIc8rqUjqbYjw US0bBBAzpqqot909BfQis3ruZLGo lKNiOPayVWR6F12tf5V7 ITHvNFYyNRX4bMZ7lD7wkCzuzzrx aRHcuTjlzpItaGktYXgtECliB556 IHRvcDsnPlBhdGllbnQg CYzvAOr8A9KnSmeokDB+DH51XGLh HI31rHRmiMYgu1vyuSd7FpZrGKFi GIV8xIriQYwxr9MeSLGo I38xzSCss5X0LCWkqLifgFNxOhQo zQR6rW9kTPjkwnlfg5mpvhsoToun d3gfqw39aG65R09lEQqv CMXzDZUsWJEaTLFhwFtkar8pyG1v Ii8+TOSxdSR5xGI2sW0cDUAhJxI0 DQzmU899QoBhnNHlMuoo w0uix4kbpOh8UyW4WONlqsThlUap RNX8u6DfIj27A63tXIkrWWZyCINz FHYlBPDonPrgxu8ohW3z Ii8+VEHdyPD0wGT6vB3kWtMiPxW0 VQzrV476GnPddVXeOksyW88xR0Vp dXA+KTRnMid6UMYzvHsd VT0teOTiGRraNe9jUHE8WlHfUaOh OSbuD8OhXJBxphofogwqiRA3LTDd RFNhyY02Fa3guJqoIULz sVVEaM3eudotq4tanhucGrYiHSRx BEw4GYc4EHWbhTggUgMaCAT9FzN8 RSJ4aDNcaO4wkDczsuel uT5tU4EuNUQotuxoSw86lA4kZdZx RnF1VVxaYeq+A1ISETVCZERZPT3U EuQZBF93HA70hRRfy6X0 hAW3S0NhVQWnkkvbbvvyiPN0MXMw AIIpoN15eVCaAHxrPy6kk4U5q298 NSHhJFYleV23Vo5ofUnq JVYclOCYuF9ryiphy2wyjkriIeJh MKQpPKp0DYr9PPNuyFnyPtJqCRI2 KvK6HNM9mEWikK3zuZxq gfftdU4uGty+YDSrQSLiIMh8Neaj dGQ+IAHwJWY7eIvuPRvsNFRyxG2n ODEcZ1h3NnQqRvL6WVqb K4VjVWShrzcvZp69wF4gJoMcFsR3 QZkyG4FgnrQ8QZGwcVDkETefDUF2 K42dg8M2MDQwCLTbPXN8 sBS0mY3dtYhfatzvfAVdmNfvssUg xPwmNVbkQNuuQ640POSmcUzqViL9 VVowZDOrXU73YY50xNUw z0R0iSI6T0QbUISengxhenrehOI4 USQtQXIslA36qLJcBMgzSx8yb8T8 u616NPOcAHEviF91Xk0k tJhaCSSxvYNNtR6mpullm3rhdyqd DeJrRSAgLKo5LVm1JMRbgRnqSqQu CGW3UwR7HSY1kVSnoA1t xFzpqzqwdC6oOhf+TUFMRTwvdGQ+ OLDuGEL3aGzgSRbwBMMljW6iMPYe O3i3RcZaXbF0OSemT5Pi UMMalfrnJg46wM5wEtLcRsL2TXjr I0BoxvX4CSWtxRXcOAlqWJX4M03j y3V4NVIkYURjMRU2aRO6 gA0fvQfwxpuedPGtmMkttpLlrFlz CDqxRGxbZ754ZQErkEriOdFwdUXG cUBqNVP0FX97RA03F5Us PjwvdGFibGU+PHRhYmxlIHdpZHRo RAhbHWDsZpDcuOccFN3eFx8oKMTr MMPsbHnefZEwUjSup3gs IFVlQLpvIX9orZnnV9NeuEG2UQWy j9x1Fb15F51lY8RoaLA+PGNvbCB3 nGH7nO0tSfFwJlT2HDlx F104NvDxbPIbEfgfc9ork0abtTu4 XiNiRTHhxeWqqVhlTPA7z2EkNi19 E60hIBipRAVxAFGwHAVk SHMacCcuom5mqM3pIh9+PGNvbCB3 fEM9hG5vNeEyFuN4JWuhH619OhHv mVRxRobrX41fQ0IshXK+ TJBhIvr2MGHdhYxwHF3piUCqDBos Zd0qVKY5OgOuRkDaFUzvJ2NkDCZx jsqjeggplCM0SHLyMQPg dD15Gb5ksDifHn7pXLXoWRD7VKKp fCXvX9JjsK3mPoZtBMQdAIZrN8Us vAJjALerZ479DSivHnJ0 PVWjggMyI8ReEPYglBynUxK9b0D8 Lb8AcAnkaAXlZX9tLgBoGNw6W6Hg Vkh6HUJahFexHY9utSZs NDgeTx5woTmlqVcvUB7yJBZtpumc g524OiMfn7peMTHfwZTiBVveLDN3 Z53kt4V8WGPgJNYzLNW1 nJU9mD8xxScomcketTBwhJjmmkLh zOlyRKobYWoxJ136UZInlDdvPbEL Iyz3N2BcMey0SJTiwAqc GM9caRSrGThaYv5yfUajlVjsXZ8x MDKuotkan318IpVeg9mmCSLskGYd MMqeJIE7E63bi6G1SGCs BNKvUJT0wWQ1rL9geKgbmhqklZBp bPhnobCwxFymJErcPTukK865VDYm mAuqNw0LRly6S1FjSfw1 KRKzsIafGZ5qzUMlOOgtWg5poJfc wSwdNH3bBBNlifvjc071YlMda7pr UYZszMXpTOgtTBK1D90t b0J8VUWrDDAdFYQ4hWF2iR4tdObc bjogbGVmdDsgdmVydGljYWwtYWxp O068ZSGofProRdIskLPb OjwvdGQ+VY79ch97Y7JcFsvgSse3 FMEpYNI0qCN2lD0tUCZcYCvuz3V7 qWC7L7YpazPrrw6iw4gx YXB (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 [facility] Coding Summary HTMLBase 64 TjkckwbwUGc1tRm+PGhlYWQ+PE1F BJRkZ84ooEWntI1uJ0PNKBnNKirb SCLEFGcCKgCoeqPlDX9vpHSnOOLc IC8+WW8kIRReUdazbCZoe5N2qZE2 P73bhg6sYXtmuFQ6LEUhSsRyaqkl e3dycRu3ZOyzUutvJvMb SHStbC56ECF2nE79Rc63qNFovNKr f9qxfCc1ApXuKTAwMPE9bTctFCsm a3HaWHTeX08bhZNdj4D1 WVFuaHaqaJUhRuUabDC9hW3cJJpf tyssf6nwsovqHxb0ys32jCBga7V0 tVC4E0SwbjM8YYNzqTSt HccpwPVAtG8jnttgo7dllzioWkXo PZUoVQg7FIl8BRSkqTmkLuXrED85 QUY5YAEklcMpW5FkRWIs dDvgOoU7r0B4Ej0XQ5LCEwtjV6QQ TUFSWTwvdGQ+IV86bx48B0TdAitl Rtu3ULTpAEH1yDS7zA4l CQUtMRqrq3C4dNC6I9EjxbLpum2q i0ofERLoFJneD71hgNAgw2D3LVDx rVD6KQCnjDciHqQwmX47 Oyc+DJNdtXnxc5KlNqyvb4tvo7nu eRu1TmmxQQYogrTrlAdhEJB2u9Xe Ll3jUDAcoAL4zBX7qC0d TaJeWrN4ZOqyF944HmTuwVJkSdsr D90fV9ViiCG+TAScZer1HULhmWuc RT4kY6CbHYAcspyltQKk xTgiIC8kUTDwcucrPQXngY7qIWKv Q6s1OeXbZtR9OIayP7LzANIhpmaw Jg27aE4fEtCoEjP7EDgx I7ArfeO7SHTcmPJdQDolRTM9I39b a5L7TGUwTTMrQCC0cJQ2xT3yyDop bjogbGVmdDsgdmVydGlj NYwtJVmnW290ZCXetEvqUwSzJSjc ZyBEYXRlOiAgMDMvMTEvMjAyNDwv dGQ+NZAzRBK8yNfnDKZg iPJmBMivUg1nhEtboWenJU1xAWAa wsqnPNUqpO5jSHOlkIKakUdfCI4j HBWcdovix622HvCqZNE2 OIPtcYPaL4XamU6dJlJbKAYtKDYl S3AqiTThJIavK570ARioSwL7SPNm tkZdZ4SnHXDfsHlkGiT6 q0G5By1Ra5OlnrujJ6MjsMVnVqRq BqlyFEe9S8IuShmukUA+SL20IPDo DN35XQl3RZA4uVjiYVcb HMMyM8UmxL0oQrCbFGXuVSCeHdf+ PHRhYmxlIHdpZHRoPScxMDAlJyBz zFvrPK4gYi0yEGKePLWe aJqthGQgToOqr8axYSTnQUsjXS9r vHvwN3NuwIC9YIKpm1i5Za75J23s T6NjrQI+IGKoxFS0kCN9 vI4eNnPuMsW6HIagG942RyOqrEMp Xfccg6ozf8mdbXx0EeV7XABhsxWa rSaaLJQ1r7GaPi21P77v WPkrKOWlGYXsTDIcTJDriYglla6p dM7kGw3+FADiuRZ8lZS5pD8dJuJj UgH3YAjkP048HoYccQHs Jypgp3viv4szcDu2BvOmSKLtjzVr wRwwXVC3a2AkMh17B7DkeXvig7El Ceg3dq97zHLxt7E0kUJ4 U4JtLFNowpwuhOFeyOkiTY0jJLCx krieFCWiwJ0aGJElR7r5FsMuAlK5 VUmiY6KkduG3XPEzuBMy RHLqbOQAzK1azyiip8ndmwpwEvNc RMZcLGb3EOn1ARUnrTrxVfAlJZX8 BmW1ULE4gOQphL0osHgs yfookW5hBud+XDW9zGZveDLPJX6n OjwvdGQ+GSUvIXJ8lPpiWNnqJDCe kK7oUFTvM2c2JsYsShM1 BMqnK5DbmgR2DYOepLFeZHYilFON iH0eyojww9igsnqqBlOvQIPiDJg3 WKq0RMSnvZrxOoRmEVV2 GrN2EXQ9xOOehV7pqGhuljrugK5r Oyc+WfmcgEzmMLV5QFm5J7PbRug0 NSWpsMowVK1vpOTeTIvp Ql0wiBrglRvcEU2jIWKsbtwuo141 FuThk5bgHYTgbYHnIAwoVFK5D68t t8F3EZNlZFGyDZF8fXN2 mM1ezPlkyktykPXgsXaralWilZqy ZZocRBrtU249TDTrkSheKcJzZEx7 Q4YmFdl4XGQulMooHE7x iQEyQNnmKs0kbBwcdPmqQS7qNTBx cbpfr896AeWhd1qpTHPtgNChPOtc GCQ3N09wu7I3KAUyPHWd RMY3rKI6yS5buOujxvslfJEyqKhd ydDyaMyfRPfhLSuvF769QTFqiJaf VeObjYu4D0XlMiw5SAJe wOsmDO1rvRQdPGnrQi1hcFvjtUqu VJ5zEAQwsjjtf826GkIwq3taDPAp bNDsXNlxUEJ9P71mx5U2 NVCnZWLwAON8hZM1gD7xtOssovjw gHHmaOuxwfQaiZziACveVYrtO041 IHRvcDsnPlBhdGllbnQg PKdhIFq0U9CyDnjptVR+OV71PKQh TH78pNHaqJOin9ckvJb7GzObRMNl ESL9iXvqGYonw6VkIJWe S51ckVJmd1T9SSXlqLdspAXeGkLc mTL7mB8dKHaxpjgdt3dgkynpTuff i6njaz95xO47H13qKFfd MTVkEVItJUHqYPOmdZbcid8dgX9o Ii8+FXOoqBG0sLQ7wC2uYMCxNzU9 MZssQ834IcXcnNOlRqnz d3ffq2vemLk9GiJ8SAXxsnQgsClw ZJW6t1FdMg81W88uTRysGUWqASQm JJCmJQZdvMuebg2rlA2l Ii8+GDZssXA0kLY8pD5mKiFeXlB7 OHzhS048CnYwkVKtWveaS49oI6Nj dXA+NAGcQaw4QOZbdYcp KU6ytSIeHDjsBj6uELJ8GuRgCpBh VNvrT3WzUYUxbvkcfdjxqKG6ZODl PCKfbJ48Jf0vcQxqSERl gQVJvI7tcvetl7xlwvovNlWqIDUi UPj5NCs2TAGqkKcrQmJrNSF6TxB7 RXP2bBNxsM0paGfvduii dA0fX0CvUGYxkfyzIo25eW1lKxEh DaJ4ZZpkUgu+I5LWTLZBLQNAYC9B PnZQEB39WH97rTQpv9C4 mON5M1DvYPZoqestmibruTN1UIQn XMQazJ60rDDpZYowYv7qe2D5b288 ETHsTFVyyR14Ma1fkCdl ZMAkhDAPbS5oegzdl4nrlgfeTvUe TFKgPWq2DWk8OWOajKmeSvCzQCP7 RgU8FUU2oBFzcO8mwSfv phzujU3nQip+AADeLWJuCDn0Gjap dGQ+TTRzWND5yBoyOQctNPXmmR0m LKKhN8x7IfFtOcG1FCfp P1RuRQShnmjmDu51kT0wBhFgVlJ9 PDkaZ3BfuyI3SGNreAHpCOevWHC0 V58zf0F3RKNtPZTwGDM9 lOB6pR7ojWeawjewtTSoyNyftzTi fAwnFFfcVZbmF647VVLrvPhxNfG9 PTsrZQWuPK10OE44xZQx u4I1eCM1H8SrFFZzccygugbfnEJ3 RTJcHHJmoR04pMRbNFwfBy6gn9J4 m766UNLkUXCgnH75Jn6y rVsyTMObaNLLzO3xamhbl0evbisq PeZlNPNuWXg2ULf8CAFlnUiqYnKr ODN2RpX7SWZ2tXCapI2p hCtdapbtkF4tTds+TUFMRTwvdGQ+ RZImTUF1rUuuHZjfDBTikN8wHTWe T6l7EbJwKmQ5EHvdR7Oq WSVjldkjNt58iA6qThNbZqH7QFzp F6FabkC2URDfaLZeFKgzNJP5T26o m2E0FFUoGWDxQHM5bSV7 aB0dqUwjhgqiqYXzpJuuhmWujFsu DBnxQVpcX336RDHemEphCf3LCG09 IQ43C9PgQnkizQQprKN+ PHRhYmxlIHdpZHRoPScxMDAlJyBz kLqiJI1uNz0tNQDoTXZkiSrppHIk FsTxu5tcHMEiEVmfGA5s hUfnY8EkmBY1NJOyc5o2On96G28h U5MtbUV+CEBajHP8xRV7pJ0mXfAe WrU0DMrdN521YePnsXMz Oidny0xxo0pluFm1AkPwELCocdRk lHjmCCG4u8WpRn40B15lXQqpAEPj TBNhGWBhLULjjEqgav9n yF3nHj9+HHYuqQX7vWC9rT3zFyQc OcJ6CDvgE825MtSviUPiMoheU44l U6DliEN+NCHdTpl3QUQm oRwdTB9baJRiWJrqDz2sROA0KrIb EnZeEBxdI6HnLQXgicryeildjOK9 YCMeLCDekP10Sb4pdJby Wh7lCUOeWFD0IPWjwGTlA0MccL6t UsTxGIKlPPWkP3CtmSZsKZsaK322 RTrnAlJ3ANZwadPgA3Js ZSXsuXkrUyI8o7Z4Dm8ZoPifeLBn XH7bZtWjSAa0H5PhQjr4AQKepOzw CG4npVHcTMttKb7ohQtk gVcdFX1dSHYejpood187SeRqn7ny BAPlhGEcAWsnAOA7P21mn5D1RACs PQKxYLF6fYF9cI1vrWlx bjogbGVmdDsgdmVydGljYWwtYWxp A688HRFqrAofGkCQKpg5O7QoKdv5 EMWzqPvoRQ3akFBiIXsu Em3yyBjlhGjtXV1bNJUhwmjoc561 UsEws8mjUWDwpZFwHNxeGZQ8T94o t4X7ZQXdJPIvODT1uWS3 fV3aiJxmplattUYygMebwiHzqDui WOyzBQbwI102KPWilCzlCv1MGik2 J7MlWbl5MQDvzOmpTJ2o sYUmJAfsFu4qdLsfiDmnBR3aLJWa wohfm057DaAkf2vzTPNokCZnJUmt ENR2V49qx7Z2YBEdEPFb DUT7jFH3kG5ssKupaoqbhGHucSlq ncTspIbyLWakCFcgJ459TTEfaKih PlBheWVyOjwvdGQ+PC90 er43P4SpQtdkQsw1DAQxRMR6aAK2 lJ2aGVCeCBfrn4C1fRS4G2TtaaPv yj7ul9tjQHXnRFfkV47q bGF (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 [facility] Consent Formson 10-24-2023 Consent Forms [id number]#1.00OTGTIFF [facility] Inpatient Patient Summaryon 10-21-2023 Inpatient Patient Summary [place] [id number] Patient Discharge Instructions Name: ENRRIQUE MADERA : 1965 Patient Address: [address] [place] [address] Primary Care Provider: Name: LEON MUNOZ DO After you are discharged if you find you have any questions, please, call [phone] ext [phone] to speak to a nurse. Discharge Diagnosis: Prescription Information: If you have been given a prescription for narcotics, seek immediate medical attention if you have any difficulty breathing or any sudden status changes such as confusion and sleepiness. If you or anyone you know is experiencing suicidal thoughts, mental health, alcohol and/or drug addiction problems; contact the [facility] 07/03 Crisis Hotline -text 4HKHW ra [id number]. If you received any narcotics, sedation, or [...] business decisions or sign any legal documents [facility] would like to thank you for allowing [...] for Disease Control and Prevention April 2014 [facility] MAGR Intraoperative Recordon 10-21-2023 MAGR Intraoperative Record MAGR Intra-Op Record Summary Primary Physician: JACINTO OLMOS MD Finalized Date/Time: 10/21/23 08:54:24 Pt. Name: ENRRIQUE MADERA/Sex: 1965 MALE Med Rec #: [id number] Physician: JACINTO OLMOS MD Financial #: [id number] Pt. Type: D Room/Bed: / Admit/Disch: 10/21/23 [...] E RT (R) CT ARRT Role Performed Marketing Designer Marketing Designer Ditching Machine Operator Time In 10/21/23 08:46:00 10/21/23 08:46:00 10/21/23 08:46:00 Time Out 10/21/23 08:55:00 10/21/23 08:55:00 10/21/23 08:55:00 Procedure Medial Branch Medial Branch Medial Branch Block(Bilateral) Block(Bilateral) Block(Bilateral) Last Modified By: Kellie Green RN, Lauren L RN Wheeler, Lauren L RN 10/21/23 08:54:16 10/21/23 08:54:16 10/21/23 08:54:16 Entry 4 Entry 5 Entry 6 Case Attendee Massimo Moffett RT (R) Pilo Chan Hunter MAGAZINE FEEDER ARRT MAGAZINE FEEDER Role Performed Ditching Machine Operator Scrub Personnel Scrub Personnel Time In 10/21/23 [...] Massimo Moffett RT (R) ARRT, Pilo Chan MAGAZINE FEEDER, Chandler Herman MAGAZINE FEEDER, JACINTO OLMOS MD Last Modified By: Kellie Green RN 10/21/23 08:48:48 Patient Positioning MAGR Pre-Care Text: A.280 Identifies baseline musculoskeletal status Im.40 Positions the patient Im.80 Applies safety devices Entry 1 Procedure Medial Branch Body Positi (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 [facility] Pre-Op Record Summary Primary Physician: JACINTO OLMOS MD Finalized Date/Time: 10/21/23 09:04:04 Pt. Name: ENRRIQUE MADERA/Sex: 1965 MALE Med Rec #: [id number] Physician: JACINTO OLMOS MD Financial #: [id number] Pt. Type: D Room/Bed: / Admit/Disch: 10/21/23 [...] Signed By: Melonie Martínez RN 10/21/23 09:04 [facility] Patient Handouton 10-21-2023 Patient Handout [facility] XR Sacrum/Coccyx Minimum 2 V iewson [...] Rae MD 10/21/23 11:53 a Technologist: TIFFANIE [facility] Consent Formson 10-19-2023 Consent Forms [id number]#1.00OTGTIFF [facility] Controlled Substances Agreem entson 10-19-2023 Controlled Substances Agreements [id number]#1.00OTGTIFF [facility] Outside Recordson 10-19-2023 Outside Records [id number]-19-2023 Progress Note - Provider [id number][facility]ation/Specialist Note on 10-12-2023 Consultation/Speci alist Note [id number]#1.00OTGTIFF [Electronically Signed on: 10/12/2023 12:26 EST] LEON MUNOZ DO [Electronically Signed on: 10/13/2023 11:57 EST] Lillie Kuhn [Verified on: 10/12/2023 12:26 EST] LEON MUNOZ DO [Transcribed on: 10/12/2023 12:24 EST] [place] [facility] Outside Recordson 10-12-2023 Outside Records [id number]#1.00OTGTIFF [Electronically Signed on: 10/12/2023 12:33 EST] LEON MUNOZ DO [Electronically Signed on: 10/13/2023 11:57 EST] Lillie Kuhn [Verified on: 10/12/2023 12:33 EST] LEON MUNOZ DO [Transcribed on: 10/12/2023 12:22 EST] [facility] Provider Orderson 10-06-2023 Provider Orders [id number]#1.00OTGTIFF [facility] Coding Summaryon 10-05-2023 Coding Summary HTMLBase 64 PbxzeagaUWo4cUn+PGhlYWQ+PE1F QBBpH58smTOsvV6pG6WUKZsCSoko CUQZGCmGBgLrapSzOZ9raPYvWGCp IC8+HM2qQXEfJtidyMNiw8S3nBV7 U09agv5oNAkmqCR1RVRfZzAbxzkn h0nkzDp0BKorCxfjTkZk EPKadP60GOC1zI53Go96mDJzeXOt l7skhFs3MnOzSZRoBUP7aSswAFfd i5VaMYJhY48adOVpz1S2 YOGxqOwkdVTbPpMgsLZ6aN4kWDew dmmpa1cvbytlQmd7ad38vQYsf4A6 kKW0N0JrmfL0VJTvtGNb RzmcsCDLkX2ofusbd7kbszmnBpUb VLEnDYm6MMq2AXVsdGwsBuZsXX07 LYG2YPCfefUgT3YrZJEk lGsmHnD3q0O1Rx1TG4JZOoiyG5RB TUFSWTwvdGQ+CU22mm72U4OnSnyf Pdy2YOCjWJB4gRD3fO2p LEOrLWnym4R3qBE9Y1RhdaGaue4h u0xvJNIfGDjtZ93qmSFdd2R9BMOb kON7GITfjBthNaAvmW43 Oyc+DYLqdOqiw3GzNemme5nuj7vy tXc5DhafMDMhknKgpMjmEPM8r8Yh Ue4aMIRreHT5pEI1dE4n HwRzCnA9YImxR047PgUyyQVmVblq V61nG5AsnMU+BAJtPle8ZIOviFah QY2jT0UaEFClpxvdxDNj iUzqMR0vJXHfiubnNLQnhK6nNWSu K5k1QyDyBlU0MJyjC3UqEFLvrbgh Ww03jI3yPpFqGqU3YSst T3QznuN1MBKlnSHmWZxiRDT4I13v i2M7ABCiBXQpRGC4qGY4fY0tzMra bjogbGVmdDsgdmVydGlj MFkfJEbgP313FPTlcFykOlXoGFwx ZyBEYXRlOiAgMDIvMjEvMjAyNDwv dGQ+ABGwXME6yNdiWQXz uSQoZFyiOj1nnRsasKmkSW4jDBJj daiyTYSgfA3aCVUasTCtyMhlEE7m LHKkzlrsh731XfCiHIN9 GUSosZIvE5FvkT1mSzVrAFDjCXCm I1UlvYNnAAydX110BZfyXhU5MQXh fqUiG3KuVQKnfDyjQkA5 s2Q6Le3Sz2NzseptC7AjyLFhNiQs XsywFAy3S5XgZqwogTE+LV27XWEl ZQ04GVx5IQT5dWhnLUos OLQiA0OklV3wMeZvWXBnUSHbHer+ PHRhYmxlIHdpZHRoPScxMDAlJyBz fDchRJ1sQg9lZOVtNVAp iDfiiXSiYcMdt7ffRBXbLVgfVS9g mHtdH1OsjBS9QTDkd9y2Lh94Y40t J1OytDW+KLNyoNH8lPC5 uI3pQfUwGlQ7OJjyW677QrLatIQy Keijb4twn8nwqAz1FcW0ZVZfhwXt uZeuWFR0u3SkYy17F41d ISbhSPUtIWEhLASiREJhgIojjy3h xF6rPr8+XYFacUG2fXM7cL3zHyZe ZmZ2UJewH311KvKsrAUr Ckref3tgd5pscBu5JuEfKXJymtNg pMrqDHZ0w3SbSf77Y8WgyXmaf1Bb Ymr1xv81pOChw2U6wRQ3 Z3AjGCZfjrwxdCMemKgjGS0nCOWt zvdqJDBlpF9eKQUnN4z5WbSuHoH8 AInmM9UmpcR3TOGomNVu MRJhaSVSbV0sybyzi7zxgzddNeGd JPYgJYn8LBy7RDWlvObxSeGcLYN8 AlT9HLN7nKEfoX5scXsp zdxszG5dMfn+BAF9rGFlhZHESJ4a OjwvdGQ+EDDvLDJ7mCrxPEqwKNUw kP4fEYJrA9e3SkHfLsT2 GKkyI7BeluC6FAAmyGXvWDJusDBF pX7suzwbh0srztahFnTqDNMuKLs9 VSl1GONocFkrDdJeJLT2 KpX1YIB9yCLtcJ1kiRhxsiekiL1g Oyc+MhygiNkmKVH0XZh7O2OrOau9 XUUtwZkoIH2jeUApYFfh Pm6fjXyjvLfnVH3pJJAytjpfp225 TeZqp1gwRFXteTNhAVsrKWD7U14g g8O8IODhTMFcCZU3bUL3 iM0juBevohmyjECjhXskvmFozTkf SCrmGJrtI561GBRomAcpFsTxWQy1 H4MmIvb6ENGtnDuiAZ5h dFHlJLazZt3obWnwwQnhKO9bBWAd enusf406TpCia4ljFALebSIiIKsp LGG5M43lb0P3PUPkOYCg CWI5aQR4tN7ldGebgqqpeSKxgSat xqYbfYndWDomYSyiO663XZUosNlj GtDgyQo8H3PaZmq2EDZn yNayFG5vvNElYBaqGe4wpCqqzQuc JU4sBGCdeuicq599LuTqd6koRAGl pLLtFRlvDZI2T51pb5Y1 TRYpRWQcPJQ0dGO5eQ7svDgxoxce xBMdiAiixlTmdPwxLTdrEVtkH360 IHRvcDsnPlBhdGllbnQg IErkGYj8A6GjMqnmdZN+WQ69PAEw TE07wJQkhJHwn7zvfBa1QvRiCLZf HEZ4mVqsIAyju8GyCDHd R80keWAzo7X0CTFokXnpmRFbBeXi lGK1qX8bNBhqlzdrw6aziishNnjz j7golp80oW75K20zOOwt GADbWEOkDLRhDHVghXcjnc9vhR7h Ii8+MOIphDV8qLF0wH3lQZUsCsV9 SKsjK368ZcVhrRNdGjff j0enj0bmpBe5YxF7KHMbhqXpfOhf JGE2n9WrHs10H94xGGwzWSPkGFNa YLLfCBAmsJyzhm0kkK5l Ii8+PKTehLR8nIX7aM6zPwDwRuU3 NOzdL072PeBqyLDuRwqtC86mX0Qm dXA+CSMmRtm3JUNriVjn YN2rmIHiETdnTq9zIHL1DoYlBzQy IJltF6KwKQFbyioenccizAU8JEDv IENndU41Hh2qlYdjBWQt bRGPgR0blggja5utsxneLnFsAKAp VLq9TPf3OUFvjBnyEmZpFFI7PcM3 HYW0zGHuqS0oeDjjnguy cY0dP1RmMHVsptxeKc87rF3tKyTg OkV0TNdyPow+R7IGRSDKBMPODT8J WkJMSQ29QS33mWMem6B2 tOH0R7UvZRAcrrpbgygebGX8ZMUg RVKsvN61eUVyLTprEb4ig4M5d430 IURlYNNkaY53Bg6rdSvo BDRzdMPDtP8dzqxjx9fmobtgOoPd MFAyNPm1NQx2YWMeyAixJwXpEIX2 JlG4FFG1jPMabO2anQdw xmdutM0nOyz+LYHqZQUkOVj7Hrjl dGQ+LEZiRSB2gFykYYveFFTxxJ0h RHSmF2j2HmVqOnS1PLjm F6AyBWIyoxmyWg39bV0rHlTdVfM7 SNjyJ5EaqmZ7VJSfoBUqPTzdRZQ2 J85un4R3TEMjBHUsUHE0 nQL7hT7mpGgecaadgLOurCluilWf eBdxUVdtOVzvW080NISqpMnlSeH4 QVhqYUVzIN25LR22xZTp d4Y5nVZ0R8OpQONcetvmcblwkJX8 TATfWFGmmR74nEJiGLgcKo7fk9L0 n648SXQsAUFptY24Tl6i pJxvGWQewWZLhB4dvvgxo8arnfqv GeMsRAFxEZr2QRb8TCTioKjfEzRo AQT2GiL5KWN0qDIhwZ1r jMvxjcojeC3tEsd+TUFMRTwvdGQ+ IRHuNCD7mCjhETlqTKZrhR2gAZPg Q9n7ZeKjEaL5AXuxN4Mm IDGrgwmrLa13aJ9dOyQoBgG8ABtv J0GzutZ8IXGnoKOqCYhvNGE3F30b q1P4KBKiVZLfFAQ5gYM1 bQ3mcPsitdgalGWbeBbqdlCgmSyv DFyeGZidC118HOYxmOhdIaMyO0Sa cxjlHnAUrCAhWIMkZA88 IO80NJ88L8DiBwhwxOWvdZJ+PHRh YmxlIHdpZHRoPScxMDAlJyBzdHls VG3mQu3yYSFmDVSpvAsx cPRdKnIif6efPKAhPQomQD2qoGmy T0BjbAE1BTViq9v4Ge35W47kP3Ss dXA+VNPjzLA4hZR7cZ7o UnFbSeB5UIziN131YeShmXGeMosj e4cls8sfwGy8AyOtUYElkmStvIyq OOB6l4VnDy71X55nOTjq TNJnXRKpGIIgOZNxiHeahd4sjK3z Ii8+AFGwaTV2fCY9oX5vCvHeVbL7 BAmtA652WdUhnXUsAjti Q93gY3EntAD+AKYdIne8IXFguDzu PS6qhPLwTHxzJe2jNJL1VyEjBxMo XObwN1OeRDRdxilrqimh nKU9UZUuWZQsqN16Di4alLmzWt0x PPFrULT1AIJvsSYcG8SncO3eGlPh QOLiCTLyW0VadRTxFXhp F188ROihWhR3TWHytgBqS1SmDUOa aZhbVcE2u7S5Pj1MhGmnrNCdCZ6j NbMtXGs1V2NsWat2RZAw iPpyOO1kzSWvKQhiAt5kzCusyYts CI3hGCEfxagvh214QjYue6knIUVq jUMhZWdwENQ6X30lg7A8 SUEqLDGiQWX8uLY2aT1mfAmajbao fGZbcTjfooWamOyyILhqRBojJ241 FOWpnSpjXkAPNtt9N7Qz Cbq2KPArtVkbOP9anTYgXXkxNe7c uBpwjBprDG0yZJGzhmilz921VrSo w0dyABEraGTmTQosKNC7 Q05bi7V0DIJnLQFpGJY2nBQ1nP6i bGlnbjogbGVmdDsgdmVydGljYWwt VNhvV518ERFibVfqDu2A Myw7L6MtOux0KHOrnVrfKU7dzRZe ECdaPu4niLpdgVhfTP8bXONffcsd x372KgLyv2eaHTGarJQy RNivBGI8A60lj8I2BDDjUTHiAWT2 wCJ8rB5ipShafvxbmJXraFmlueMs xSxlUYrtVIdaH872YRTg cDsnPlBheWVyOjwvdGQ+YK15jo02 X3KfUrwlNus1FENuPIH3cRH4nD9f FDMjIVvum0U9lRS6P7Fq cmR (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 Normal [facility] Rad - Other Radiology Report on 09-29-2023 Rad - Other Radiology Report [id number]#1.00OTGTIFF [facility] MR LUMBAR SPINE W WO CONTon [...] left hemilaminectomy. Mild spinal canal narrowing with gbou-tv-ggzagshm right and moderate left neuroforaminal narrowing. L4-L5: Left paracentral disc protrusion, mild facet arthropathy and laminectomy changes without significant spinal canal narrowing. Minimal narrowing of the left subarticular recess. Ipwj-xb-jnzdshmg right and wmdodtti-wc-bygfly left neuroforaminal narrowing. L5-S1: Laminectomy changes and facet arthropathy. No spinal canal narrowing. Tbda-mm-xveaobiu right and moderate left neuroforaminal narrowing. IMPRESSION: [...] Jr Aguilar on 09/27/2023 9:56 AM Normal [facility] Provider Orderson 09-26-2023 Provider Orders [id number]#1.00OTGTIFF Normal [facility] Provider Orders [id number]#1.00OTGTIFF [facility] Rad - Other Radiology Report on 09-26-2023 Rad - Other Radiology Report [id number]#1.00OTGTIFF [facility] XR SPINE LUMB BENDING ONLY 2 [...] Lopez MD on 09/24/2023 5:21 PM Normal [facility] Lab - Other Lab Resultson Lab - Other Lab Results [id number]#[facility] 08-09-2023 Outside Records [id number][facility] 07-27-2023 Outside Records [id number]#1.[facility] [id number]#[facility] 05-05-2023 Patient Letter [id number]#1.[facility]on SARS-CoV-2 (COVID-19) RNA PRESTON+probe Ql (Unsp spec) Not detected Normal NOT DETECTED [facility] Comment on above: Result Comment: This test is not yet approved or cleared by the [place] FDA. When there are no FDA-approved or cleared tests available, and other criteria are met, FDA can make tests available under an emergency access mechanism called an Emergency Use Authorization (EUA). The EUA for this test is supported by the Retail Buyer of Health and Human Service's (HHS's) declaration [...] SARS-CoV-2. Performed By: #### C VDTB #### [facility] [address] [place] [address] Dr. Caitie Pierce Basic Metabolic Profon 01-08 (cont.) Normal [facility] Comment on above: Result Comment: Aver age GFR for 50-59 years old: 93 mL/min/1.73sq mChronic Kidney Disease: <60 mL/min/1.73sq mKidney failure: <15 mL/min/1.73sq meGFR calculated using average adult body mass. Additional eGFR calculator available at:http://www.Angiodroid/multiple_crcl_2012.htmPerformed at [facility] [address] [place] [address] Performed By: #### C DP, BMP ####[facility] [place] [address] Anion gap 12 mmol/L Normal 9-17 [facility] Comment on above: Performed By: #### C DP, BMP ####[facility] [place] [address] Calcium 9.4 mg/dL Normal 8.6-10.4 [facility] Comment on above: Performed By: #### C DP, BMP ####[facility] [place] [address] Chloride 102 mmol/L Normal 98-107 [facility] Comment on above: Performed By: #### C DP, BMP ####[address] [address] CO2 25 mmol/L Normal 20-31 [facility] Comment on above: Performed By: #### C DP, BMP ####[address] [address] Creatinine 0.80 mg/dL Normal 0.70-1.20 [facility] Comment on above: Performed By: #### C DP, BMP ####[address] [address] eGFR (non-black) mL/min/{1.73_m2} Normal >60 [facility] Comment on above: Performed By: #### C DP, BMP ####[address] [address] Glucose mass conc 91 mg/dL Normal 70-99 [facility] Comment on above: Performed By: #### C DP, BMP ####[address] [address] Potassium molar conc 4.2 mmol/L Normal 3.7-5.3 [facility] Comment on above: Performed By: #### C DP, BMP ####[address] [address] Sodium 139 mmol/L Normal 135-144 [facility] Comment on above: Performed By: #### C DP, BMP ####[address] [address] Urea nitrogen 10 mg/dL Normal 6-20 [facility] Comment on above: Performed By: #### C DP, BMP ####[address] [address] BUN/CRE Ratio NOT REPORTED Normal 9-20 [facility] Comment on above: Performed By: #### C DP, BMP ####[address] [place] [address] Staging: NOT REPORTED Normal [facility] Comment on above: Performed By: #### C DP, BMP ####[address] [address] CBC with Diffon 01-08-2018 Abs. Basophil 0.10 k/uL Normal 0.0-0.2 [facility] Comment on above: Result Comment: Perf ormed at [facility] [address] [place] [address] Performed By: #### C DP, BMP ####[address] [address] Abs.Neutrophil (Seg) 4.10 k/uL Normal 1.3-9.1 [facility] Comment on above: Performed By: #### C DP, BMP ####[address] [address] Basophils/100 WBC Auto (Bld) 1 % Normal 0-2 [facility] Comment on above: Performed By: #### C DP, BMP ####[address] [address] Eosinophils 0.20 10*3/uL Normal 0.0-0.4 [facility] Comment on above: Performed By: #### C DP, BMP ####[address] [address] Eosinophils/100 leukocytes 3 % Normal 0-4 [facility] Comment on above: Performed By: #### C DP, BMP ####[address] [address] Erythrocyte distribution width Auto Ratio (RBC) 13.7 % Normal 11.5-14.9 [facility] Comment on above: Performed By: #### C DP, BMP ####[facility] [place] [address] Erythrocytes (RBC) 4.98 10*6/uL Normal 4.5-5.9 [facility] Comment on above: Performed By: #### C DP, BMP ####[facility] [place], [place] [address]e [facility] [place] [address] Hematocrit (HCT) 44.7 % Normal 41-53 [facility] Comment on above: Performed By: #### C DP, BMP ####[facility] [facility] [place] [address] Hemoglobin mass conc (Bld) 15.2 g/dL Normal 13.5-17.5 [facility] Comment on above: Performed By: #### C DP, BMP ####[address] [place] [address] Lymphocytes 1.10 10*3/uL Normal 1.0-4.8 [facility] Comment on above: Performed By: #### C DP, BMP ####[address] [address] Lymphocytes/100 leukocytes 18 % Low 24-44 [facility] Comment on above: Performed By: #### C DP, BMP ####[facility] [place], [place] [address] [facility] [place] [address] MCH 30.6 pg Normal 26-34 [facility] Comment on above: Performed By: #### C DP, BMP ####[address] [facility] [place] [address] MCHC mass conc (RBC) 34.1 g/dL Normal 31-37 [facility] Comment on above: Performed By: #### C DP, BMP ####[address] [facility] [place] [address] MCV 89.7 fL Normal 80-100 [facility] Comment on above: Performed By: #### C DP, BMP ####[address] [address] Monocytes 0.50 10*3/uL Normal 0.1-1.3 [facility] Comment on above: Performed By: #### C DP, BMP ####[address] [address] Monocytes/100 leukocytes 8 % High 1-7 [facility] Comment on above: Performed By: #### C DP, BMP ####[address] [address] Neutrophil (Seg) 70 % High 36-66 [facility] Comment on above: Performed By: #### C DP, BMP ####[address] [address] Platelet mean volume (PMV) 8.2 fL Normal 6.0-12.0 [facility] Comment on above: Performed By: #### C DP, BMP ####[address] [address] Platelets 232 10*3/uL Normal 150-450 [facility] Comment on above: Performed By: #### C DP, BMP ####[address] [address] WBC (Leukocytes) 5.9 10*3/uL Normal 3.5-11.0 [facility] Comment on above: Performed By: #### C DP, BMP ####[address] [address] Auto Diff Performed NOT REPORTED Normal [facility] Comment on above: Performed By: #### C DP, BMP ####[address] [place] [address] Erythrocyte morphology NOT REPORTED Normal [facility] Comment on above: Performed By: #### C DP, BMP ####[address] [address] Erythrocytes (RBC) NOT REPORTED Normal [facility] Comment on above: Performed By: #### C DP, BMP ####[address] [address] Granulocytes/100 WBC (Bld) NOT REPORTED Normal 0.00-0.30 [facility] Comment on above: Performed By: #### C DP, BMP ####[address] [address] Immature granulocytes #/vol (Bld) NOT REPORTED Normal 0 [facility] Comment on above: Performed By: #### C DP, BMP ####[address] [address] Platelets NOT REPORTED Normal [facility] Comment on above: Performed By: #### C DP, BMP ####[address] [address] WBC Morphology NOT REPORTED Normal [facility] Comment on above: Performed By: #### C DP, BMP ####[address] [address] [address] SOFT TISSUE NECK W CONTRA STon [...] rt jawearly this am used bbs to clarissa the spotAcuity: AcuteType of Exam: InitialFINDINGS:The lung [...] could reflect acutesinusitis.Interpreted by:GERTRUDE Suggsigned by:Jass Hardy MD01/08/inal result Normal [facility] Vital Signs Date Time Vital Sign Value Performing Clinician Facility 04-25-2024 13:00-0400 Body height 182.9 cm Vioelta Black MD Work Phone: [facility] 04-25-2024 13:00-0400 Body mass index (BMI) [Ratio] 25.12 kg/m2 Violeta Black MD Work Phone: [facility] 04-25-2024 13:00-0400 Body weight 84 kg Violeta Black MD Work Phone: [facility] 04-25-2024 13:00-0400 Diastolic blood pressure 77 mm[Hg] Violeta Black MD Work Phone: [facility] 04-25-2024 13:00-0400 Heart rate 91 /min Violeta Black MD Work Phone: [facility] 04-25-2024 13:00-0400 Systolic blood pressure 143 mm[Hg] Violeta Black MD Work Phone: [facility] 04-11-2024 12:55-0400 Body height 182.9 cm Alison Briceno MD Work Phone: [facility] 04-11-2024 12:55-0400 Body mass index (BMI) [Ratio] 25.12 kg/m2 Alison Briceno MD Work Phone: [facility] 04-11-2024 12:55-0400 Body weight 84 kg Alison Briceno MD Work Phone: [facility] 04-11-2024 12:55-0400 Diastolic blood pressure 96 mm[Hg] Alison Briceno MD Work Phone: [facility] 04-11-2024 12:55-0400 Heart rate 81 /min Alison Briceno MD Work Phone: [facility] 04-11-2024 12:55-0400 Systolic blood pressure 161 mm[Hg] Alison Briceno MD Work Phone: [facility] 03-26-2024 10:27-0400 Body mass index (BMI) [Ratio] 25.23 kg/m2 Violeta Black MD Work Phone: [facility] 03-26-2024 10:27-0400 Body weight 84.37 kg Violeta Black MD Work Phone: [facility] Comment on above: per patient 03-16-2024 11:25-0400 Body height 182.88 cm [facility] 03-16-2024 11:25-0400 Body mass index (BMI) [Ratio] 26.2 kg/m2 [facility] 03-16-2024 11:25-0400 Body weight 87.54 kg [facility] 03-16-2024 11:25-0400 Diastolic blood pressure 81 mm[Hg] [facility] 03-16-2024 11:25-0400 Heart rate 104 /min [facility] 03-16-2024 11:25-0400 SaO2% (BldA) [Mass fraction] 97 % [facility] 03-16-2024 11:25-0400 Systolic blood pressure 136 mm[Hg] [facility] 03-01-2024 13:15-0400 Body height 182.9 cm Kian Pacenta SHOE CEMENTER.CLEANING SPECIALIST Work Phone: [facility] 03-01-2024 13:15-0400 Body mass index (BMI) [Ratio] 25.35 kg/m2 Kian Pacenta SHOE CEMENTER.CLEANING SPECIALIST Work Phone: [facility] 03-01-2024 13:15-0400 Body weight 84.8 kg Kian Pacenta SHOE CEMENTER.CLEANING SPECIALIST Work Phone: [facility] 03-01-2024 13:15-0400 Diastolic blood pressure 71 mm[Hg] Kian Pacenta SHOE CEMENTER.CLEANING SPECIALIST Work Phone: [facility] 03-01-2024 13:15-0400 Heart rate 89 /min Kian Pacenta SHOE CEMENTER.CLEANING SPECIALIST Work Phone: [facility] 03-01-2024 13:15-0400 Respiratory rate 18 /min Kian Pacenta SHOE CEMENTER.CLEANING SPECIALIST Work Phone: [facility] 03-01-2024 13:15-0400 Systolic blood pressure 132 mm[Hg] Kian Pacenta SHOE CEMENTER.CLEANING SPECIALIST Work Phone: [facility] 10-04-2023 12:41-0500 Body height 182.9 cm Panfilo Childress MD Work Phone: [facility] 10-04-2023 12:41-0500 Body mass index (BMI) [Ratio] 27.12 kg/m2 Panfilo Childress MD Work Phone: [facility] 10-04-2023 12:41-0500 Body weight 90.72 kg Panfilo Childress MD Work Phone: [facility] 10-04-2023 12:41-0500 Diastolic blood pressure 92 mm[Hg] Panfilo Childress MD Work Phone: [facility] 10-04-2023 12:41-0500 Heart rate 87 /min Panfilo Childress MD Work Phone: [facility] 10-04-2023 12:41-0500 Systolic blood pressure 148 mm[Hg] Panfilo Childress MD Work Phone: [employer] 09-06-2023 14:48-0500 Body height 182.9 cm 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 SHOE CEMENTER-CLEANING SPECIALIST [facility] 09-06-2023 14:48-0500 Body mass index (BMI) [Ratio] 27.8 kg/m2 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 SHOE CEMENTER-CLEANING SPECIALIST [facility] 09-06-2023 14:48-0500 Body weight 92.99 kg 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 SHOE CEMENTER-CLEANING SPECIALIST Work Phone: [employer] 09-06-2023 14:48-0500 Diastolic blood pressure 95 mm[Hg] 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 SHOE CEMENTER-CLEANING SPECIALIST [facility] 09-06-2023 14:48-0500 Heart rate 76 /min 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 SHOE CEMENTER-CLEANING SPECIALIST Work Phone: [employer] 09-06-2023 14:48-0500 Systolic blood pressure 140 mm[Hg] 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 SHOE CEMENTER-CLEANING SPECIALIST Work Phone: [employer] 02-23-2023 15:30-0400 Body height 185.42 cm Melissa Adama Other [facility] Other 02-23-2023 15:30-0400 Body mass index (BMI) [Ratio] 26.91 kg/m2 Melissa Adama Other [facility] Other 02-23-2023 15:30-0400 Body weight 92.53 kg Melissa Adama Other [facility] Other 02-23-2023 15:30-0400 Diastolic blood pressure 75 mm[Hg] Melissa Adama Other [facility] Other 02-23-2023 15:30-0400 SaO2% (BldA) [Mass fraction] 98 % Melissa Galan Other [facility] Other 02-23-2023 15:30-0400 Systolic blood pressure 130 mm[Hg] Melissa Galan Other [facility] Other 09-08-2022 15:00-0500 Body height 185.42 cm Carole Jensen Other [facility] Other 09-08-2022 15:00-0500 Body mass index (BMI) [Ratio] 27.37 kg/m2 Carole Boschno Other [facility] Other 09-08-2022 15:00-0500 Body temperature 97.3 [degF] Carole Boschno Other [facility] Other 09-08-2022 15:00-0500 Body weight 94.12 kg Julianer Mikey Other [facility] Other 09-08-2022 15:00-0500 Diastolic blood pressure 80 mm[Hg] Carole Roperdano Other [facility] Other 09-08-2022 15:00-0500 SaO2% (BldA) [Mass fraction] 97 % Julianer Mikey Other [facility] Other 09-08-2022 15:00-0500 Systolic blood pressure 126 mm[Hg] Carole Roperdano Other [facility] Other Encounters Encounter Date Encounter Type Care Provider Facility Start: 05-08-2024 ambulatory Damian Hathaway [facility] Start: 04-27-2024 ambulatory Jourdan RUBIN Facility :[facility] Start: 04-26-2024 ambulatory DO LEON Pereyra TAMMY Faci lity:[facility] Start: 04-25-2024 End: 04-25-2024 Office outpatient visit 15 minutes Violeta Black MD Work Phone: [facility] Comment on above: Other osteoporosis w ith current pathological fracture, initial encounter (Primary Dx); Lumbar radiculopathy Start: 04-23-2024 End: 04-23-2024 ambulatory LUL BRADSHAW Facility:[facility] Start: 04-20-2024 ambulatory Jourdan CARYN Facility:[facility] Start: 04-19-2024 End: 04-19-2024 ambulatory AURADEEPIKA FORREST Not Available Start: 04-18-2024 End: 04-18-2024 ambulatory DAMIAN M ADASarthak Facility:[facility] Start: 04-13-2024 End: 04-17-2024 ambulatory Kian Pacenta SHOE CEMENTER.CLEANING SPECIALIST Work Phone: [facility] Comment on above: Activity level/ phys ical limitations and restrictions Start: 04-11-2024 End: 04-11-2024 ambulatory ALISON BRICENO Facility:[facility] Start: 04-11-2024 End: 04-11-2024 Patient encounter procedure Alison Briceno MD Work Phone: [facility] Comment on above: Compression fracture of body of thoracic vertebra (HCC) (Primary Dx); Other fracture of unspecified thoracic vertebra, initial encounter for closed fracture (HCC); Compression fracture of C7 vertebra, sequela Start: 03-30-2024 End: 03-30-2024 ambulatory LEON MUNOZ Facility:[facility] Start: 03-30-2024 ambulatory DO LEON MUNOZ Faci lity:[facility] Start: 03-30-2024 End: 03-30-2024 ambulatory JACINTO OLMOS Facility:[facility] Start: 03-30-2024 End: 03-30-2024 ambulatory Jacinto Olmos MD Facility:[facility] Start: 03-28-2024 ambulatory Kian Pacenta SHOE CEMENTER.CLEANING SPECIALIST Work Phone: [facility] Comment on above: Recent visit with geovanni yoder Start: 03-27-2024 ambulatory Lul Foster Work Phone: [facility] Start: 03-26-2024 End: 03-26-2024 Office outpatient new 45 minutes Violeta Black MD Work Phone: [facility] Comment on above: Other osteoporosis w ith current pathological fracture, initial encounter (Primary Dx); Lumbar radiculopathy; Status post lumbar spine surgery for decompression of spinal cord Start: 03-26-2024 End: 03-26-2024 Subsequent hospital visit by physician General Radio [facility] Comment on above: S/P lumbar laminecto my [Z98.890] Start: 03-26-2024 End: 03-26-2024 ambulatory VIOLETA BLACK Facility:[facility] Start: 03-19-2024 End: 03-23-2024 Evaluation and management of inpatient KISHORE MCMANUS Facility:[facility] Start: 03-16-2024 End: 03-16-2024 ambulatory LEON MUNOZ [facility] Work Phone: Start: 03-16-2024 End: 03-16-2024 Patient encounter procedure [facility] Work Phone: Start: 03-16-2024 End: 03-16-2024 ambulatory JACINTO OLMOS Facility:[facility] Start: 03-16-2024 End: 03-16-2024 ambulatory Jacinto Olmos MD Facility:[facility] Start: 03-08-2024 Telephone encounter Kian Pace nta SHOE CEMENTER.CLEANING SPECIALIST Work Phone: Neurology Comment on above: Patient Question Start: 03-02-2024 End: 03-02-2024 ambulatory Kian Pacenta SHOE CEMENTER.CLEANING SPECIALIST Work Phone: [facility] Start: 03-01-2024 End: 03-01-2024 Patient encounter procedure Kian Pacenta SHOE CEMENTER.CLEANING SPECIALIST Work Phone: [facility] Comment on above: Lumbar radiculopathy (Primary Dx); Status post lumbar spine surgery for decompression of spinal cord Start: 03-01-2024 End: 03-02-2024 ambulatory Jacinto Olmos MD Facility:[facility] Start: 02-24-2024 End: 02-24-2024 ambulatory LEON P HOUSE Facility:[facility] Start: 02-24-2024 End: 02-24-2024 ambulatory Neris Debbi Cranston SHOE CEMENTER-CLEANING SPECIALIST Facility:[facility] Start: 02-08-2024 Chart abstracting Unk Pcp (Hist) Juan Miguel veras Start: 12-16-2023 End: 12-16-2023 ambulatory JACINTO OLMOS Facility:[facility] Start: 12-16-2023 End: 12-16-2023 ambulatory Jacinto Olmos MD Facility:[facility] Start: 12-01-2023 End: 12-01-2023 ambulatory LEON P HOUSE Facility:[facility] Start: 12-01-2023 End: 12-01-2023 ambulatory Neris Debbi Cranston SHOE CEMENTER-CLEANING SPECIALIST Facility:[facility] Start: 11-25-2023 End: 11-25-2023 ambulatory LEON P HOUSE Facility:[facility] Start: 11-04-2023 End: 11-04-2023 ambulatory JACINTO OLMOS Facility:[facility] Start: 11-03-2023 End: 11-04-2023 ambulatory Jacinto Olmos MD Facility:[facility] Start: 10-31-2023 End: 10-31-2023 ambulatory MICHAEL ROBERTGUADALUPE Not Available Start: 10-27-2023 End: 10-27-2023 ambulatory LEON P [facility]SE Facility:[facility] Start: 10-27-2023 End: 10-27-2023 ambulatory Neris Debbi Cranston [employer]CLE[employer]ING SPECIALIST Facility:[facility] Start: 10-21-2023 End: 10-21-2023 ambulatory [facility] [facility] Start: 10-20-2023 End: 10-21-2023 ambulatory Jacinto Olmos MD Facility:[facility] Start: 10-17-2023 End: 10-17-2023 ambulatory LEON P HOUSE Facility:[facility] Start: 10-17-2023 End: 10-17-2023 ambulatory LEON P HOUSE Facility:[facility] Start: 10-17-2023 End: 10-17-2023 ambulatory Neris Gutierres SHOE CEMENTER-CLEANING SPECIALIST Facility:[facility] Start: 10-05-2023 End: 10-05-2023 ambulatory DO LEON Pereyra OLTON Facility:[facility] Start: 10-04-2023 End: 10-04-2023 ambulatory PANFILO Shaila [facility] Start: 10-04-2023 End: 10-04-2023 Postop follow up visit related to original px Panfilo Childress MD Work Phone: [facility] Comment on above: Status post lumbar l aminectomy (Primary Dx); Weakness of left lower extremity Start: 09-23-2023 End: 09-24-2023 ambulatory [facility] Start: 09-23-2023 End: 09-23-2023 ambulatory [facility] Start: 09-12-2023 End: 02-20-[address] [facility] Facility:[facility] Start: 09-06-2023 ambulatory BERNARD SIMEON [facility] Start: 09-06-2023 End: 09-06-2023 Postop follow up visit related to original px 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 SHOE CEMENTER-CLEANING SPECIALIST Work Phone: [facility] Comment on above: Status post lumbar l aminectomy (Primary Dx); Lumbar radiculopathy; Weakness of left lower extremity; Sensory deficit, left Start: 07-19-2023 End: 07-19-2023 ambulatory Bernard Simeon MD Facility:[facility] Start: 05-03-2023 End: 05-03-2023 ambulatory Bernard Simeon MD Facility:[facility] Start: 02-23-2023 End: 02-23-2023 ambulatory Melissa Adama Facility:[facility] Start: 02-23-2023 End: 02-23-2023 Patient encounter procedure MD Bernard Simeon Work Phone: [facility] Work Phone: Start: 02-23-2023 End: 02-23-2023 ambulatory MD Bernard Simeon Work Phone: [facility] Work Phone: Start: 02-23-2023 Office outpatient vi sit 10 minutes Melissa Galan [facility] Start: 09-15-2022 End: 09-15-2022 ambulatory Bernard Simeon Facility:[facility] Start: 09-08-2022 End: 09-08-2022 ambulatory Bernard Simeon Facility:[facility] Start: 09-08-2022 Office outpatient ne w 30 minutes Christopher Mikey [facility] Start: 09-08-2022 End: 09-08-2022 ambulatory MD Bernard Simeon Work Phone: [facility] Work Phone: Start: 09-08-2022 End: 09-08-2022 Patient encounter procedure MD Bernard Simeon Work Phone: [facility] Work Phone: Start: 08-19-2021 End: 08-19-[address] DOCTOR HAYES Facility: Start: 09-26-2020 Patient encounter status Ladarius Padron SHOE CEMENTER-CLEANING SPECIALIST Work Phone: [employer] Work Phone: Start: 01-08-2018 End: 01-08-2018 Emergency department patient visit BERNARD SIMEON [facility] Procedures Date Procedure Procedure Detail Performing Clinician Start: 09-06-2023 Follow-up visit Follow-up JAIR PADRON Start: 07-25-2023 Adult depression screening assessment 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 SHOE CEMENTER-CLEANING SPECIALIST Work Phone: Start: 01-08-2018 Ct soft tissue neck w/contrast material BERNARD PARSONSKEL Start: 01-08-2018 Basic metabolic pane l calcium total BERNARD SIMEON Start: 01-08-2018 Blood count complete auto&auto difrntl wbc BERNARD SIMEON Start: 01-08-2018 INSERT PERIPHERAL IV DA JOSE M SIMEON Plan of Treatment Date Care Activity Detail Author Start: 03-22-2027 Diabetes Screening Diabetes Screenin g [facility] Start: 08-26-2026 Screening for malign ant neoplasm of colon [facility] Start: 07-18-2026 Diabetes Screening Diabetes Screenin g [facility] Start: 10-06-2024 Tobacco Screening Tobacco Screening [facility] Start: 10-04-2024 Adult BMI Screening Adult BMI Screen ing [facility] Start: 09-06-2024 Adult BMI Screening Adult BMI Screen ing [facility] Start: 09-06-2024 Tobacco Screening Tobacco Screening [facility] Start: 07-25-2024 Depression Screening Depression Scre ening [facility] Start: 05-02-2024 End: 05-02-2024 ambulatory 05/02/2024 1:00 PM EDT [facility] [address] [place], [place] [id number] Alison Briceno MD [address] [place] [address] 3-4 week f/u [facility] Comment on above: 3-4 week f/u Start: 04-30-2024 End: 04-30-2024 Patient encounter procedure 04/30/2024 11:00 AM EDT Appointment Radiology [address] [place] [address] Compression fracture of body of thoracic vertebra (HCC) [S22.000A] Radiology Comment on above: Compression fracture of body of thoracic vertebra (HCC) [S22.000A] Start: 04-25-2024 End: 04-25-2024 Patient encounter procedure 04/25/2024 1:40 PM EDT Office Visit [facility] [address] [place] [address] Violeta Black MD [address] [place] [id number] f/u [facility] Comment on above: f/u Start: 04-23-2024 End: 04-23-2024 Admission to same day surgery [facility] Comment on above: INJECTION(S) STEROID TRANSFORAMINAL EPIDURAL W/ IMAGING GUIDANCE LUMBAR INJECTION(S) STEROID TRANSFORAMINAL EPIDURAL LUMBAR W/IMAGE GUIDANCE FLUORO OR CT Start: 04-23-2024 End: 09-09-2024 Njx anes&/strd w/img tfrml edrl lmbr/sac 1 lvl [facility] Start: 04-23-2024 Subsequent hospital visit by [facility] Comment on above: Other osteoporosis w ith current pathological fracture, initial encounter [M80.80XA] Start: 04-15-2024 Covid-19 Vaccine ( season) Covid-19 Vaccine ( season) [facility] Start: 04-15-2024 Influenza vaccination Influenza Vacc ine (#1) [facility] Start: 03-17-2024 DTaP,Tdap and Td Vaccines (2 - Td or Tdap) DTaP,Tdap and Td Vaccines (2 - Td or Tdap) [facility] Start: 09-23-2023 End: 09-23-2023 Patient encounter procedure 09/23/2023 9:00 PM EST Appointment [facility] [address] [facility] [place] [address] [facility] Start: 09-06-2023 End: 09-06-2024 XR Lumbar spine Views AP W right bending and W left bending X-ray spine lumbar flexion and extension only 2 to 3 views Imaging Routine Status post lumbar laminectomy Lumbar radiculopathy Expected: 09/06/2023, Expires: 09/06/2024 [facility] Comment on above: Expected: 09/06/2023 , Expires: 09/06/2024 Start: 08-15-2023 Behavioral Health Screening Behavioral Health Screening [facility] Start: 04-15-2023 COVID-19 Vaccine ( season) COVID-19 Vaccine ( season) [facility] Start: 04-15-2023 Influenza vaccination Influenza Vacc ine [facility] Start: 2021 Prostate specific antigen measurement Prostate Cancer Screening Discussion [facility] Start: 2016 Administration of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 the general population and indicates half of respondents had a worse score. Descriptive Summary for PROMIS Physical Function T-score = 23 (Percentile 0) Unable - Do chores such as vacuuming or yard work. Much difficulty - Run errands and shop. Much difficulty - Walk about the house. Depression Screenin03/25/2024 PHQ-9 Score 19 03/25/2024 PHQ-9 Self-harm Question Question 9 Several days PHQ-9 Self-Harm (Item 9) response options: 0 Not at all 1 Several days 2 More than half the days 3 Nearly every day PHQ-9 Levels: 0-4 No to mild depression 5-9 Mild depression 10-14 Moderate depression 15-19 Moderately severe depression 20-27 Severe depression OBJECTIVE: PHYSICAL EXAM Wt 84.4 kg (186 lb) BMI 25.23 kg/m GENERAL APPEARANCE: Well nourished, well developed, and no apparent distress. NEURO PSYCH: Patient oriented to person, place, and time. Mood pleasant. Benign affect. Spine Exam Incision: Posterior lumbar incision well healed Neck No obvious deformity, normal ROM Back No stepoffs/deformities. No tenderness or instability to palpation along spinous processes or paravertebral musculature Upper Extremity Motor UE BICEPS TRICEPS DELTS Wrist Ext Wrist Flex Color Room Attendant HI R 5 5 5 5 5 5 5 L 5 5 5 5 5 5 5 Sensation to light touch intact to bilateral upper extremities UE Reflexes Right: Triceps, Biceps, Brachial normoreflexic Left: Triceps, Biceps, Brachial normoreflexic Gonsalez's: Negative bilaterally Lower Extremity Motor LE Hip Flex Knee Flex Knee Extend Plantarflex Dorsiflex EHL R 4 4 4 4 4 4 L 4 4 4 4 4 4 Sensation intact to light tough in bilateral lower extremities in spn, dpn, sural, saphenous, and tibial nerves. STRAIGHT LEG TEST: Positive right LE Reflexes Right: Patellar, Ankle normoreflexic Left: Patellar, Ankle normoreflexic Ambulatory status: independent DATA REVIEW CT scan reviewed demonstrating osteoporosis in his lumbar spine, Hounsfield units ranging from 80-90 from L3-S1, vacuum effect at L5-S1, prior T12 kyphoplasty noted, suspicion for L4 compression fracture with subtle endplate changes and mid vertebral body, sclerosis present on unilateral side Coronal x-rays with left-sided 5 1 collapse, left-sided 4 5 asymmetric collapse, 3 4 lateral listhesis ASSESSMENT/PLAN (M80.80XA) Other osteoporosis with current pathological fracture, initial encounter (primary encounter diagnosis) (M54.16) Lumbar radiculopathy (Z98.890) Status post lumbar spine surgery for decompression of spinal cord Enrrique Madera will continue with medical management of his/her condition. Long discussion was had with Enrrique his son and his [id number] regarding his clinical presentation. I do believe he has symptomatic lumbar foraminal stenosis due to discogenic pathology. His central canal is well decompressed he has had 4 prior back operations. We briefly discussed the role of 1/5 operation. Given his significant foraminal stenosis as well as his lateral listhesis and his right anterior thigh pain I find it reasonable that he would likely require a fusion procedure. Given this and his poor bone quality he needs to be optimized prior to any further surgical intervention. Given his acute exacerbation of his chronic back pain I do believe he may have had a subclinical compression fracture. No MRI was obtained as he was unable to tolerate this. On community service officer imaging he has no evidence of overt central canal stenosis. We discussed attempting to wean his narcotics as well as return to his baseline chronic back pain. Referral was placed for a right 3 4 transforaminal epidural steroid injection given his significant right L3 radiculopathy. Referral was placed to endocrine bone for evaluation for potential anabolic bone agent. All questions were answered I will see the patient back after his injection and his bone health is improved 1. Imaging: None 2. Physical Therapy: Continue current 3. Medication: Discussed need to decrease narcotic requirement prior to an elective lumbar surgery 4. Referrals: Spine intervention (Dr. Bradshaw) for right L3-4 TFESI, Endo Bone (Dr. Briceno) for bone health optimization Imaging Ordered: None The majority of the visit was spent counseling and/or coordinating care for the patient. The patient was counseled regarding low back pain in the setting of radiculopathy. Total face to face time was 30 minutes. SIGNATURE: Violeta Black MD PATIENT NAME: Enrrique Madera DATE: March 26, 2024 TIME: 12:02 PM PAGER: documented in this encounter [facility] 03-26-2024 History of Presen t illness Narrative Radiology Service Progress Note PATIENT NAME: Enrrique Madera DATE OF SERVICE: March 26, 2024 TIME: 10:28 AM PATIENT IDENTITY VERIFICATION COMPLETED USING TWO (2) IDENTIFIERS: Name and Date of confirmed by patient verbally and Name and Date of confirmed by identification band. FALL SCREENING: Has the patient had 2 falls in the last year or 1 fall with injury or currently using an Ambulatory Assistive Device (Walker, Cane, Wheelchair, Crutches, etc.)? No PATIENT GENDER DATA: Male PATIENT RELEVANT IMPLANT DATA REVIEWED: Not Applicable PATIENT PRESENTS WITH AN IMPLANTABLE OR ATTACHED CNC MACHINIST: No RADIOLOGY DEPARTMENT: General X-ray: Exam(s) Completed: Spine X-Ray(s): Lumbar AP / LAT / L5-S1 / FLEX-EXT and Scoliosis Series /weight bearing PERIPHERAL IV DATA: Not applicable SIGNED BY: PRATIK Kitchen) March 26, 2024 10:28 AM documented in this encounter [facility] 03-26-2024 Note HNO ID: [id number] Author: JOLENE FISHER RT(R) Service: ? Author Type: Technologist Type: Progress Notes Filed: 03/26/2024 10:28 Note Text: Radiology Service Progress Note PATIENT NAME: Enrrique Madera DATE OF SERVICE: March 26, 2024 TIME: 10:28 AM PATIENT IDENTITY VERIFICATION COMPLETED USING TWO (2) IDENTIFIERS: Name and Date of confirmed by patient verbally and Name and Date of confirmed by identification band. FALL SCREENING: Has the patient had 2 falls in the last year or 1 fall with injury or currently using an Ambulatory Assistive Device (Walker, Cane, Wheelchair, Crutches, etc.)? No PATIENT GENDER DATA: Male PATIENT RELEVANT IMPLANT DATA REVIEWED: Not Applicable PATIENT PRESENTS WITH AN IMPLANTABLE OR ATTACHED CNC MACHINIST: No RADIOLOGY DEPARTMENT: General X-ray: Exam(s) Completed: Spine X-Ray(s): Lumbar AP / LAT / L5-S1 / FLEX-EXT and Scoliosis Series /weight bearing PERIPHERAL IV DATA: Not applicable SIGNED BY: RT Fidelina(R) March 26, 2024 10:28 AM [facility] 03-23-2024 Note HNO ID: [id number] Author: CAROLE CLOUD CPhT Service: ? Author Type: Cage Manager Type: Plan of Care Filed: 03/23/2024 17:56 Note Text: PHARMACY BEDSIDE DELIVERY SERVICE Patient Name: Enrrique Madera The marked outpatient medications were Filled at: [facility] and delivered to the patient's bedside to pt Medication List START taking these medications acetaminophen 500 mg tablet Commonly known as: TYLENOL Take 2 tablets by mouth every 8 hours for 7 days. DELIVERED diclofenac 1.3 % topical patch Commonly known as: FLECTOR Apply 1 Patch as directed two times a day for 7 days. DELIVERED lisinopril 20 mg tablet Commonly known as: ZESTRIL Take 1 tablet by mouth once daily. Start taking on: March 24, 2024 DELIVERED * methocarbamol 500 mg tablet Commonly known as: ROBAXIN Take 2 tablets by mouth four times a day as needed for up to 4 days. DELIVERED * methocarbamol 750 mg tablet Commonly known as: ROBAXIN Take 1 tablet by mouth three times a day for 3 days. Patient should start on March 28, 2024. Start taking on: March 28, 2024 DELIVERED oxyCODONE IR 5 mg immediate release tablet Commonly known as: ROXICODONE Take 1 tablet by mouth every 6 hours as needed for up to 7 days. DELIVERED polyethylene glycol 3350 17 gram packet Take 1 Packet by mouth two times a day. Dissolve dose in 4 - 8 ounces of liquid and take as directed. DELIVERED Pregabalin 200 mg capsule Commonly known as: LYRICA Take 1 capsule by mouth three times a day for 30 days. DELIVERED Senna 8.6 mg Tab Generic drug: senna Take 1 tablet by mouth two times a day. DELIVERED tamsulosin 0.4 mg Commonly known as: FLOMAX Take 1 capsule by mouth daily at bedtime. DELIVERED * This list has 2 medication(s) that are the same as other medications prescribed for you. Read the directions carefully, and ask your doctor or other care provider to review them with you. CONTINUE taking these medications buprenorphine 15 mcg/hour patch Commonly known as: BUTRANS buPROPion SR 150 mg 12 hr tablet Commonly known as: WELLBUTRIN SR diclofenac (EC) 75 mg EC tablet Commonly known as: VOLTAREN FLUoxetine 20 mg capsule Commonly known as: PROzac naloxone 4 mg/actuation nasal spray omeprazole 40 mg capsule Commonly known as: PriLOSEC sildenafil 20 mg tablet Commonly known as: REVATIO You might also be taking other medications not listed above. If you have questions about any of your other medications, talk to the person who prescribed them or your Primary Care Provider. STOP taking these medications CYCLOBENZAPRINE ORAL gabapentin 600 mg tablet Commonly known as: NEURONTIN lisinopril-hydroCHLOROthiazide 20-25 mg per tablet Commonly known as: ZESTORETIC PERCOCET 5-325 mg tablet Generic drug: oxyCODONE-acetaminophen Carole Cloud [facility] PAGER: [phone] March 23, 2024 5:55 PM [facility] 03-23-2024 Note HNO ID: [id number] Author: JEFERSON CAMPBELL MD Service: Nephrology Author Type: Physician Type: Plan of Care Filed: 03/23/2024 12:57 Note Text: Nephrology brief note: This patient's sodium has improved to 133 last night, appropriate for acute hyponatremia episode. -Continue free water restriction to 2L (judicious fluid intake), encourage patient to only drink for thirst. -Avoid HCTZ -Continue pain control -Monitor for urinary retention -Nephrology will sign off. Please reach back to us with any further questions or concerns. Joni Donald MD Nephrology Fellow PGY-IV [facility] 03-22-2024 Note HNO ID: [id number] Author: MCKAYLA PRINCE PA-C Service: Hospital Medicine Author Type: Physician Airset Caster Type: Progress Notes Filed: 03/22/2024 14:43 Note Text: DEPARTMENT OF HOSPITAL MEDICINE PROGRESS NOTE SERVICE DATE: 03/22/2024 SERVICE TIME: 2:33 PM Hospital Medicine/Primary Attending: Jackie Keita MD NIGHT AND WEEKEND COVERAGE: [facility] COVERAGE: Days: [phone], please page Mckayla Prince for patient issues. Nights: [phone], please page Team GIM 6: G/H 8th floor: [id number]; Non 8th floor [phone] Subjective INTERVAL HPI: -Spasm improved, continues to endorse severe pain radiating to R groin and thigh with ambulation. Pain improved to 3/4 at rest -Multiple bowel movements -PVR elevated, improving after BM and initiating Flomax -Outpatient neurosurgery team able to move up surgical consult appointment to 03/26 Current Facility-Administered Medications Medication Dose Route Frequency buprenorphine 5 mcg/hour 1 Patch (BUTRANS) 1 Patch TRANSDERMAL 1/WK And buprenorphine - REMOVE PATCH OTHER 1/WK And buprenorphine - VERIFY PATCH OTHER q [address] 40 mg tab(s) (PROTONIX) 40 mg ORAL DAILY (6 AM) NaCl 0.9% iv flush bag 20 mL INTRAVENOUS PRN buPROPion SR 150 mg tab(s) (WELLBUTRIN SR) 150 mg ORAL BID lisinopril 20 mg tab(s) (ZESTRIL) 20 mg ORAL DAILY buprenorphine 10 mcg/hour 1 Patch (BUTRANS) 1 Patch TRANSDERMAL 1/WK And buprenorphine - REMOVE PATCH OTHER 1/WK And buprenorphine - VERIFY PATCH OTHER q 8 H acetaminophen 1,000 mg tab(s) (TYLENOL) 1,000 mg ORAL q 8 H diclofenac 1.3 % 1 Patch (FLECTOR) 1 Patch TRANSDERMAL BID And diclofenac - REMOVE PATCH OTHER BID And diclofenac - VERIFY PATCH OTHER q 8 H oxyCODONE IR 5-10 mg tab(s) (ROXICODONE) 5-10 mg ORAL q 4 H PRN senna 8.6 mg tab(s) (SENOKOT) 1 tablet ORAL BID naloxegol 25 mg tab(s) (MOVANTIK) 25 mg ORAL DAILY polyethylene glycol 3350 17 g packet 17 g ORAL BID tamsulosin 0.4 mg cap(s) (FLOMAX) 0.4 mg ORAL AT BEDTIME pregabalin 200 mg cap(s) (LYRICA) 200 mg ORAL TID methocarbamol 1,000-1,500 mg tab(s) (ROBAXIN) 1,000-1,500 mg ORAL QID PRN morphine 2 mg injection 2 mg INTRAVENOUS q 4 H PRN Objective PHYSICAL EXAM: BP 142/82 Pulse 86 Temp (Src) 98.1 (Oral) Resp 14 SpO2 96% O2 Therapy: Room Air Physical Exam Performed GENERAL: Alert, appears WDWN in no acute distress, cooperative. NECK: No jugulovenous distention, supple BACK: (+) R lumbar paraspinal TTP. Back symmetric, normal curvature, ROM normal, no CVAT. LUNGS: Lungs clear to auscultation, no adventitious lung sounds. Good diaphragmatic excursion CARDIAC: Normal S1 and S2; no rubs, murmurs, or gallops ABDOMEN: Abdomen soft, non-distended, non-tender, BS normal x 4. No masses or organomegaly EXTREMITIES: (+) Chronic venous dermatitis of LEKian Monteen. Hip flexion limited by pain. Normal strength with knee extension, dorsi/plantar flexion of ankle. Diminished sensation of right thigh, normal sensation past knee. Extremities normal, no deformities, edema, clubbing. Good capillary refill. No ulcers. NEURO: Alert and oriented x3. Grossly normal cognition, motor function, and cranial nerves II-XII intact. PULSES: 2+ radial, 2+ dorsalis pedis Lines, Drains, and Airways Line Duration Peripheral 03/19/24 [facility] Short Right Antecubital 22 Gauge 3 days Reviewed lines and needs to be continued: REASONS: Difficulty in obtaining/maintaining access and IV muscle relaxer/pain medications DATA: Diagnostic tests reviewed for today's visit: Most recent labs Most recent imaging Most recent EKG CBC, Coags, BMP, Mg, Phos Recent Labs 03/22/24 1253 03/22/24 0524 03/22/24 0113 03/21/24 1431 03/21/24 0734 03/20/24 1700 03/20/24 0849 WBC -- -- 15.04* -- 11.67* 11.62* -- HB -- -- 14.1 -- 14.7 14.0 -- HCT -- -- 40.4 -- 42.4 40.4 -- PLT -- -- 265 -- 288 263 -- NA 127* 126* 123* < > 123* 127* 128* K 4.6 4.7 4.7 < > 4.8 4.6 5.1 CHLOR 95* 93* 91* < > 88* 90* 93* CO2 23 24 24 < > 24 24 28 BUN 13 15 15 < > 16 17 14 CREAT 0.76 0.74 0.80 < > 0.81 0.82 0.77 GLUC 88 101* 111* < > 90 104* 86 CA 8.2* 8.4* 8.5 < > 8.6 8.4* 8.8 MG -- -- -- -- -- -- 2.2 < > = values in this interval not displayed. Liver Function, Amylase, AND Lipase Recent Labs 03/20/24 0849 TPROT 5.8* ALB 3.9 ALT 35 AST 24 ALKPHOS 50 TBILI 0.8 OSH MRI LUMBAR SPINE Result Date: 02/06/24 obtained after the onset of RLE pain Impression: multi-level lumbar spondylosis, L L4-5 disc herniation, postop changes from L2-5 decompression, and b/l L3-S1 foraminal stenosis MRI LUMBAR SPINE WO IVCON Result Date: 03/19/2024 IMPRESSION: MRI LUMBAR SPINE WO IVCON could not be completed. Reason for cancellation: Patient was not able to tolerate the exam. Limited obtained images reveal similar morphology of T12 compression fracture from 02/06/2024. COMMUNICATION: Communicated with Justus Mcgraw on DATE TIME (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 [facility] 03-21-2024 Note HNO ID: [id number] Author: MCKAYLA PRINCE PA-C Service: Hospital Medicine Author Type: Physician Airset Caster Type: Progress Notes Filed: 03/21/2024 14:36 Note Text: DEPARTMENT OF HOSPITAL MEDICINE PROGRESS NOTE SERVICE DATE: 03/21/2024 SERVICE TIME: 2:13 PM Hospital Medicine/Primary Attending: Jackie Keita MD NIGHT AND WEEKEND COVERAGE: [facility] COVERAGE: Days: [phone], please page Mckayla Prince for patient issues. Nights: [phone], please page Team [facility] 6: G/H 8th floor: [address]; Non 8th floor [address] Subjective INTERVAL HPI: -RLE spasm improved with muscle relaxer -Worsened shooting pain into right groin and thigh -Mild urinary retention noted with PVR -Constipated, last BM on Tuesday prior to admission Current Facility-Administered Medications Medication Dose Route Frequency buprenorphine 5 mcg/hour 1 Patch (BUTRANS) 1 Patch TRANSDERMAL 1/WK And buprenorphine - REMOVE PATCH OTHER 1/WK And buprenorphine - VERIFY PATCH OTHER q [address] 40 mg tab(s) (PROTONIX) 40 mg ORAL DAILY (6 AM) NaCl 0.9% iv flush bag 20 mL INTRAVENOUS PRN buPROPion SR 150 mg tab(s) (WELLBUTRIN SR) 150 mg ORAL BID lisinopril 20 mg tab(s) (ZESTRIL) 20 mg ORAL DAILY buprenorphine 10 mcg/hour 1 Patch (BUTRANS) 1 Patch TRANSDERMAL 1/WK And buprenorphine - REMOVE PATCH OTHER 1/WK And buprenorphine - VERIFY PATCH OTHER q 8 H acetaminophen 1,000 mg tab(s) (TYLENOL) 1,000 mg ORAL q 8 H diclofenac 1.3 % 1 Patch (FLECTOR) 1 Patch TRANSDERMAL BID And diclofenac - REMOVE PATCH OTHER BID And diclofenac - VERIFY PATCH OTHER q 8 H oxyCODONE IR 5-10 mg tab(s) (ROXICODONE) 5-10 mg ORAL q 4 H PRN morphine 4 mg injection 4 mg INTRAVENOUS q 4 H PRN senna 8.6 mg tab(s) (SENOKOT) 1 tablet ORAL BID polyethylene glycol 3350 17 g packet 17 g ORAL DAILY methocarbamol 750-1,000 mg injection (ROBAXIN) 750-1,000 mg INTRAVENOUS q 6 H PRN keTORolac 30 mg injection (Toradol) 30 mg INTRAVENOUS q 6 H pregabalin (LYRICA) cap(s) 150 mg 150 mg ORAL TID NaCl 0.9% iv infusion 75 mL/hr INTRAVENOUS CONTINUOUS Objective PHYSICAL EXAM: BP 153/81 Pulse 82 Temp (Src) 99 (Oral) Resp 16 SpO2 97% O2 Therapy: Room Air Physical Exam Performed GENERAL: Alert, appears WDWN in no acute distress, cooperative. NECK: No jugulovenous distention, supple BACK: (+) R lumbar paraspinal TTP. Back symmetric, normal curvature, ROM normal, no CVAT. LUNGS: Lungs clear to auscultation, no adventitious lung sounds. Good diaphragmatic excursion CARDIAC: Normal S1 and S2; no rubs, murmurs, or gallops ABDOMEN: Abdomen soft, non-distended, non-tender, BS normal x 4. No masses or organomegaly EXTREMITIES: (+) Chronic venous dermatitis of LE. Ashen. Hip flexion limited by pain. Normal strength with knee extension, dorsi/plantar flexion of ankle. Diminished sensation of right thigh, normal sensation past knee. Extremities normal, no deformities, edema, clubbing. Good capillary refill. No ulcers. NEURO: Alert and oriented x3. Grossly normal cognition, motor function, and cranial nerves II-XII intact. PULSES: 2+ radial, 2+ dorsalis pedis Lines, Drains, and Airways Line Duration Peripheral 03/19/24 [facility] Short Right Antecubital 22 Gauge 2 days Reviewed lines and needs to be continued: REASONS: Difficulty in obtaining/maintaining access and IV muscle relaxer/pain medications DATA: Diagnostic tests reviewed for today's visit: Most recent labs Most recent imaging Most recent EKG CBC, Coags, BMP, Mg, Phos Recent Labs 03/21/24 0734 03/20/24 1700 03/20/24 0849 03/19/24 1757 WBC 11.67* 11.62* -- 12.22* HB 14.7 14.0 -- 15.6 HCT 42.4 40.4 -- 45.8 PLT 288 263 -- 297 NA 123* 127* 128* 139 K 4.8 4.6 5.1 2.9* CHLOR 88* 90* 93* 109* CO2 24 24 28 23 BUN 16 17 14 10 CREAT 0.81 0.82 0.77 0.53* GLUC 90 104* 86 65* CA 8.6 8.4* 8.8 5.8* MG -- -- 2.2 -- Liver Function, Amylase, AND Lipase Recent Labs 03/20/24 0849 TPROT 5.8* ALB 3.9 ALT 35 AST 24 ALKPHOS 50 TBILI 0.8 OSH MRI LUMBAR SPINE Result Date: 02/06/24 obtained after the onset of RLE pain Impression: multi-level lumbar spondylosis, L L4-5 disc herniation, postop changes from L2-5 decompression, and b/l L3-S1 foraminal stenosis MRI LUMBAR SPINE WO IVCON Result Date: 03/19/2024 IMPRESSION: MRI LUMBAR SPINE WO IVCON could not be completed. Reason for cancellation: Patient was not able to tolerate the exam. Limited obtained images reveal similar morphology of T12 compression fracture from 02/06/2024. COMMUNICATION: Communicated with Justus Mcgraw on DATE TIME via verbal communication. Monologist: HARRIETT Transcribe Date/Time: Mar 19 2024 4:07P Dictated by : BENEDICT REBOLLEDO MD This examination was interpreted and the report reviewed and electronically signed by: BERNARD CARRINGTON MD on Mar 19 2024 4:45PM EST XR SCOLIOSIS PA STAND/LAT 2V Result Date: 03/19/2024 IMPRESSION: Levoscol (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 [facility] 03-20-2024 Note HNO ID: [id number] Author: JOSSE URIARTE RPh Service: Pharmacy Author Type: Pharmacist Type: Plan of Care Filed: 03/20/2024 17:32 Note Text: PHARMACY MEDICATION REVIEW Patient Name: Enrrique Madera : 1965 The following medications were updated within the [facility] medication list: Medications ADDED to [facility] medication list none Medications CHANGED on [facility] medication list Butrans - 15 mcg/hr patch, 1 patch per week Flexeril 10 mg - 1t qhs prn muscle spasms Prozac - 20 mg, 2 caps once daily Gabapentin 600 mg - 1 tab 4 times daily Omeprazole 40 mg - 1 cap once daily prn Diclofenac 75 mg ec - 1 tab bid Medications REMOVED from [facility] medication list Prednisone 20 mg Additional comments: patient knew meds without prompting The below information represents the best possible medication history: Yes Medication history completed by: dean of student services: Michael Aguirre CPhT and Tile Conduit Layer: Michael Aguirre CPhT Source of history: Patient: Reliability of source: Appears reliable, clearly identified: Medication name, Medication dose, and Medication frequency, Pharmacy records: [facility] and [facility] records Medication nonadherence identified: No barriers noted Reconciliation completed: Yes Completed by: Tao Uriarte rph All [facility] medications addressed by LIP and Medications intentionally held at admission: cyclobenzaprine, diclofenac, hydrochlorothiazide, sildenafil, fluoxetine reduced to 10mg daily, Patient interested in Bedside Delivery Services or using OP Pharmacy at discharge? Yes. Discharge Pharmacy Updated Preferred outpatient pharmacy: [facility] [address] [place] [phone] [facility] [phone] [id number] Allergies: Oxycodone Unknown Comment:Other Reaction(s): addiction/former addict Prior to Admission Medications Prescriptions Last Dose Informant Patient Reported? Taking? FLUoxetine (PROZAC) 20 mg capsule 03/19/2024 Yes Yes Sig: Take 40 mg by mouth once daily. PERCOCET 5-325 mg tablet Unknown Yes Yes Sig: Take 1 tablet by mouth every 8 hours as needed for pain. buPROPion SR (WELLBUTRIN SR) 150 mg 12 hr tablet 03/19/2024 Yes Yes Sig: Take 150 mg by mouth two times a day. buprenorphine (BUTRANS) 15 mcg/hour patch 03/19/2024 Yes Yes Sig: Apply 1 Patch as directed one time a week. cyclobenzaprine HCl (CYCLOBENZAPRINE ORAL) 03/19/2024 Yes Yes Sig: Take 10 mg by mouth at bedtime as needed (muscle spasms). diclofenac, EC, (VOLTAREN) 75 mg EC tablet Yes Yes Sig: Take 75 mg by mouth two times a day. gabapentin (NEURONTIN) 600 mg tablet 03/19/2024 Yes Yes Sig: Take 600 mg by mouth four times daily. lisinopril-hydroCHLOROthiazide (ZESTORETIC) 20-25 mg per tablet 03/19/2024 Yes Yes Sig: Take 1 tablet by mouth once daily. naloxone 4 mg/actuation nasal spray (NARCAN) Yes Yes Sig: Use 4 mg in the nose at bedtime as needed. omeprazole (PRILOSEC) 40 mg capsule 03/19/2024 Yes Yes Sig: Take 40 mg by mouth once daily as needed. sildenafil (REVATIO) 20 mg tablet Yes Yes Si TO 3 TABLETS, Oral, Daily, PRN: NEEDED, # 90 tab(s), 1 Refill(s), Pharmacy: [facility] [id number], TAKE 2 TO 3 TABLETS BY MOUTH ONCE DAILY NEEDED, 182.88, cm, 12/16/23 6:36:00 EDT, Height, 89.3, kg, 12/16/23 6:42:00 EDT, Weight Dosing Facility-Administered Medications: None Michael Aguirre [facility] 03/20/2024 Tao Urairte [facility] 03/20/24 [facility] 03-20-2024 Note HNO ID: [id number] Author: MCKAYLA PRINCE PA-C Service: Hospital Medicine Author Type: Physician Airset Caster Type: Progress Notes Filed: 03/20/2024 15:59 Note Text: DEPARTMENT OF HOSPITAL MEDICINE PROGRESS NOTE SERVICE DATE: 03/20/2024 SERVICE TIME: 2:16 PM Hospital Medicine/Primary Attending: Jackie Keita MD NIGHT AND WEEKEND COVERAGE: [facility] COVERAGE: Days: [phone], please page Mckayla Prince for patient issues. Nights: [phone], please page Team [facility] 6: G/H 8th floor: [address]; Non 8th floor [address] Subjective INTERVAL HPI: -Reports persistent RLE spasm, worsened with lying flat or standing -Pain radiates to right groin and down RLE -Reports pain worsened since he attempted to lift a heavy cooler about 2 weeks ago -He was told by outpatient neurosurgery team that he would likely require a fusion of L3-4 TFESI. He is concerned that his initial appointment 04/06 Current Facility-Administered Medications Medication Dose Route Frequency buprenorphine 5 mcg/hour 1 Patch (BUTRANS) 1 Patch TRANSDERMAL 1/WK And buprenorphine - REMOVE PATCH OTHER 1/WK And buprenorphine - VERIFY PATCH OTHER q [address] 40 mg tab(s) (PROTONIX) 40 mg ORAL DAILY (6 AM) NaCl 0.9% iv flush bag 20 mL INTRAVENOUS PRN buPROPion SR 150 mg tab(s) (WELLBUTRIN SR) 150 mg ORAL BID FLUoxetine 10 mg cap(s) (PROzac) 10 mg ORAL DAILY lisinopril 20 mg tab(s) (ZESTRIL) 20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 illness Narrative Images from the original note were not included. [facility] [address] [place] [address], [address] [place] [address] * CHART NOTE ? 09/06/2023 Patient: Enrrique Madera 1965 [id number] Physician: Panfilo Childress MD CHIEF COMPLAINT Post-op. [...] have injured his back. Denies loss of city administrator strength, saddle anesthesia, urinary or bowel dysfunction, [...] Right achilles: 2+ Left achilles: 2+ Right city administrator: 2+ Left city administrator: 2+ Right Gonsalez: absent Left Gonsalez: absent [...] record of the patient encounter. Inadvertent computerized tile ditcher errors related to syntax, spelling, homophones, and/or inaudibility may be present. [facility] 09/06/23 1642 documented in this encounter [facility] 09-06-2023 Instructions Thoreau A Marleni - 09/06/2023 3:00 PM EST MRI lumbar w/o Xrays lumbar flex/ext Physical therapy Pt to be off of work for an additional 4 more weeks RT documented in this encounter [facility] 02-23-2023 Evaluation note Encounter Date Diagnosis Assessment Notes Feb, Obstructive sleep apnea (ICD-10 - G47.33) Feb, Shift work sleep disorder (ICD-10 - G47.26) [facility] Other 01-25-2023 Evaluation note* Encounter Date Diagnosis Assessment Notes Treatment Notes Treatment Clinical Notes Aug, Obstructive sleep apnea (ICD-10 - G47.33) [facility] Other Evaluation noteNo assessment information available [facility] Work Phone: Evaluation note* Diagnosis Status post lumbar laminectomy- Primary Lumbar radiculopathy Thoracic or lumbosacral neuritis or radiculitis, unspecified Weakness of left lower extremity Sensory deficit, left [facility] Diagnosis Status post lumbar laminectomy- Primary Weakness of left lower extremity [facility] Diagnosis Degeneration of lumbar or lumbosacral intervertebral disc- Primary S/P lumbar laminectomy Other postprocedural status [facility] Diagnosis Lumbar radiculopathy- Primary Thoracic or lumbosacral neuritis or radiculitis, unspecified Status post lumbar spine surgery for decompression of spinal cord [facility] Diagnosis Onset Date Resolution Status BRADY (obstructive sleep apnea) acute Shift work sleep disorder ac [facility] Work Phone: Evaluation note* Diagnosis Other osteoporosis with current pathological fracture, initial encounter- Primary Lumbar radiculopathy Thoracic or lumbosacral neuritis or radiculitis, unspecified Status post lumbar spine surgery for decompression of spinal cord [facility] Diagnosis Other osteoporosis with current pathological fracture, initial encounter- Primary Other osteoporosis with current pathological fracture, initial encounter [facility] Diagnosis Compression fracture of body of thoracic vertebra (HCC)- Primary Other fracture of unspecified thoracic vertebra, initial encounter for closed fracture (HCC) Compression fracture of C7 vertebra, sequela Other osteoporosis with current pathological fracture, initial encounter [facility] Diagnosis Other osteoporosis with current pathological fracture, initial encounter- Primary Status post lumbar spine surgery for decompression of spinal cord Lumbar radiculopathy Thoracic or lumbosacral neuritis or radiculitis, unspecified Back pain of thoracolumbar region Lumbago Other osteoporosis with current pathological fracture, initial encounter [facility] Diagnosis Other osteoporosis with current pathological fracture, initial encounter- Primary Lumbar radiculopathy Thoracic or lumbosacral neuritis or radiculitis, unspecified [facility] Narrative - Reported* Type Description Date Medical History chronic back pain Medical History depressive disorder Medical History E.D. [facility] Consultation (Routine) - Authorized Specialty Diagnoses / Procedures Referred By Rainer rodriguez Referred To Contact Rehabilitation Diagnoses Status post lumbar laminectomy Low back pain, non-specific 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 APRN-CNP [address] [employer] [address] [address] [facility] [address] [place] [address] Referral ID Status Reason Start Date Expiration Date Visits Requested Visits Authorized [id number] Authorized Specialty Services Required 09/06/2023 09/05/2024 1 1 * Diagnostic Imaging (Routine) - Pending Review Specialty Diagnoses / Procedures Referred By Contortiz t Referred To Contact Radiology Diagnoses Status post lumbar laminectomy Low back pain, non-specific Procedures MR lumbar spine with and without contrast 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 APRN-CNP [address] [place] [address] [facility] [address] [facility] [place] [address] Phone: [phone] Referral ID Status Reason Start Date Expiration Date V isits Requested Visits Authorized [id number] Pending Review 09/06/2023 09/05/2024 1 1 [facility] for visit Narrative* Diagnostic Procedure Only (Routine) - Closed Specialty Diagnoses / Procedures Referred By Rainer t Referred To Contact XR IMAGING Diagnoses S/P lumbar laminectomy Degeneration of lumbar or lumbosacral intervertebral disc Procedures XR LUMBAR MOTION 4V AP/LAT/ FLEX/EXT RADEX SPINE LUMBOSACRAL MINIMUM 4 VIEWS Kian Mcdermott APRN.CLEANING SPECIALIST [address] Mail [address] [place] [address] [place] [address] Referral ID Status Reason Start Date Expiration Date V isits Requested Visits Authorized [id number] Closed Auto-Generate d Referral 03/09/2024 04/08/2025 1 1 [facility] Summary Purpose Family History No Family History [...] Code 07/26/2023 7:31 AM 07/27/2023 3:31 PM Date Activated Date Inactivated Comments 03/20/2024 1:08 AM 03/23/2024 9:45 PM Question Answer Comments Full Code Order Discussed With: Patient Date Activated Date Inactivated Comments 03/20/2024 1:08 AM 03/23/2024 9:45 PM Question Answer Comments Full Code Order Discussed With: Patient Chief Complaint and Reason for Visit Chief Complaint G47.30 Chief Complaint Obstructive sleep ap laura Chief Complaint BRADY/ ANNUAL Reason for Visit BRADY (obstructive sle ep apnea) Shift work sleep disorder Reason for Referral Specialty Diagnoses / Procedures Referred By Rainer t Referred To Contact [facility] Diagnoses Other osteoporosis with current pathological fracture, initial encounter Status post lumbar spine surgery for decompression of spinal cord Lumbar radiculopathy Back pain of thoracolumbar region Procedures CONSULT TO PHYSICAL THERAPY PHYSICAL THERAPY EVALUATION HIGH COMPLEX 45 MINS Kian Mcdermott, SHOE CEMENTER.CLEANING SPECIALIST [address] Mail [address] [place] [id number] [facility] [place] [address] [place] [address] Referral ID Status Reason Start Date Expiration Date Visits Requested Visits Authorized [id number] Pending Review Auto-Generat ed Referral 04/17/2024 04/17/2025 1 1 Specialty Diagnoses / Procedures Referred By Rainer rodriguez Referred To Contact MR IMAGING Diagnoses Other fracture of unspecified thoracic vertebra, initial encounter for closed fracture (HCC) Procedures MRI THORACIC SPINE WO IVCON MRI SPINAL CANAL THORACIC W/O CONTRAST RADHAL Alison Briceno MD [address] [facility] [place] [id number] [facility] [place] [address] Referral ID Status Reason Start Date Expiration Date Visits Requested Visits Authorized [id number] New Request Auto-Generat ed Referral 04/11/2024 05/11/2025 1 1 Specialty Diagnoses / Procedures Referred By Rainer rodriguez Referred To Contact MR IMAGING Diagnoses Compression fracture of C7 vertebra, sequela Procedures MRI CERVICAL SPINE WO IVCON MRI SPINAL CANAL CERVICAL W/O CONTRAST MATRAlison Martinez MD [address] [place] [id number] [facility] [place] [address] Referral ID Status Reason Start Date Expiration Date Visits Requested Visits Authorized [id number] New Request Auto-Generat ed Referral 04/11/2024 05/11/2025 1 1 Specialty Diagnoses / Procedures Referred By Rainer t Referred To Contact XR IMAGING Diagnoses Compression fracture of body of thoracic vertebra (HCC) Procedures DXA-AXIAL SKELETON Alison Briceno MD [address] [facility] [place] [id number] [place] [id number] Referral ID Status Reason Start Date Expiration Date Visits Requested Visits Authorized [id number] New Request Auto-Generat ed Referral 04/11/2024 05/11/2025 1 1 Specialty Diagnoses / Procedures Referred By Contac t Referred To Contact Diagnoses Other osteoporosis with current pathological fracture, initial encounter Procedures CONSULT TO ENDO METABOLIC BONE OFFICE/OUTPATIENT NEW HIGH MDM 60 MINUTES Kian Mcdermott APRN.CLEANING SPECIALIST [address] [place] [address] Referral ID Status Reason Start Date Expiration Date Visits Requested Visits Authorized [id number] Authorized PCP Requested Referral 03/26/2024 03/26/2025 1 1 Specialty Diagnoses / Procedures Referred By Contac t Referred To Contact Diagnoses Other osteoporosis with current pathological fracture, initial encounter Procedures CONSULT TO ENDO METABOLIC BONE OFFICE/OUTPATIENT NEW HIGH MDM 60 MINUTES Violeta Black MD [address] [place] [address] Referral ID Status Reason Start Date Expiration Date Visits Requested Visits Authorized [id number] Authorized PCP Requested Referral 03/26/2024 03/26/2025 1 1 Specialty Diagnoses / Procedures Referred By Contac t Referred To Contact Diagnoses Status post lumbar laminectomy Weakness of left lower extremity Procedures EMG Panfilo Childress MD [address] [place] [address] [address] [place] [phone] Referral ID Status Reason Start Date Expiration Date V isits Requested Visits Authorized [id number] Pending Review 10/04/2023 10/03/2024 1 1 Specialty Diagnoses / Procedures Referred By Contac t Referred To Contact Rehabilitation Diagnoses Status post lumbar laminectomy Panfilo Childress MD [address] [place] [address] [address] [place] [address] [facility] [address] [place] [address] Referral ID Status Reason Start Date Expiration Date Visits Requested Visits Authorized [id number] Authorized Specialty Services Required 10/04/2023 10/03/2024 1 1 Additional Source Comments (unrecognized sect ion and content) No Status Records FoundNo Status Records FoundNo Status Records FoundNo Status Records FoundNo Status Records FoundNo Status Records FoundNo Status Records FoundNo Status Records FoundNo Status Records FoundNo Status Records FoundNo Status Records Found INFORMATION SOURCE (unrecogn ized section and content) DATE CREATED AUTHOR 02/01/2018 [facility] DATE CREATED AUTHOR AUTHOR'S ORGANIZ ATION 08/24/2021 [facility] DATE CREATED AUTHOR AUTHOR'S ORGANIZ ATION 02/26/2023 [facility] DATE CREATED AUTHOR AUTHOR'S ORGANIZ ATION 09/28/2023 [facility] DATE CREATED AUTHOR AUTHOR'S ORGANIZ ATION 10/11/2023 [facility] DATE CREATED AUTHOR AUTHOR'S ORGANIZ ATION 04/12/2024 [facility] DATE CREATED AUTHOR AUTHOR'S ORGANIZ ATION 04/20/2024 [facility] DATE CREATED AUTHOR AUTHOR'S ORGANIZ ATION 04/21/2024 [facility] DATE CREATED AUTHOR AUTHOR'S ORGANIZ ATION 04/23/2024 [facility] DATE CREATED AUTHOR AUTHOR'S ORGANIZ ATION 04/25/2024 [facility] DATE CREATED AUTHOR AUTHOR'S ORGANIZ ATION 04/26/2024 [facility] Care Teams (unrecognized sec tion and content) Team Status: Inactive Member Role Status Dates Carole Jensen MD Attending Provider Active Bernard Simeon MD Primary Care Provider Active Team Status: Active Member Role Status Dates Bernard Simeon MD Primary Care Provider Active Team Status: Inactive Member Role Status Dates Bernard Simeon MD Primary Care Provider Active Melissa Galan APRN [facility] Attending Provider Active Maintenance Advisor Relationship Specialty Start Date End Date Leon Munoz DO [address] [place] [id number] PCP - General Family Medicine 07/25/23 Maintenance Advisor Relationship Specialty Start Date End Date Leon Munoz DO [address] [id number] PCP - General Family Medicine 07/25/23 Maintenance Advisor Relationship Specialty Start Date End Date Damian Hathaway MD [address] [place] [address] PCP - General Family Medicine 02/07/24 Maintenance Advisor Relationship Specialty Start Date End Date Damian Hathaway MD [address] [place] [address] PCP - General Family Medicine 02/07/24 Maintenance Advisor Relationship Specialty Start Date End Date Damian Hathaway MD [address] [place] [address] PCP - General Family Medicine 02/07/24 Team Status: Inactive Member Role Status Dates Bernard Simeon MD Primary Care Provider Active Start: March 16, 2024 End: March 16, 2024 Melissa Galan APRN [facility] Attending Provider Active Start: March 16, 2024 End: March 16, 2024 Maintenance Advisor Relationship Specialty Start Date End Date Damian Hathaway MD [address] [place] [address] PCP - General Family Medicine 02/07/24 Maintenance Advisor Relationship Specialty Start Date End Date Damian Hathaway MD [address] [place] [address] PCP - General Family Medicine 02/07/24 Maintenance Advisor Relationship Specialty Start Date End Date Damian Hathaway MD [address] [place] [address] PCP - General Family Medicine 02/07/24 Maintenance Advisor Relationship Specialty Start Date End Date Damian Hathaway MD [address] [id number] PCP - General Family Medicine 02/07/24 Maintenance Advisor Relationship Specialty Start Date End Date Damian Hathaway MD [address] [id number] PCP - General Family Medicine 02/07/24 Maintenance Advisor Relationship Specialty Start Date End Date Damian Hathaway MD [address] [id number] PCP - General [facility] Medicine 02/07/24 Maintenance Advisor Relationship Specialty Start Date End Date Damian Hathaway MD [address] [id number] PCP - General Family Medicine 02/07/24 Goals (unrecognized section and content) Goals may be documented in a n alternate sectionNo InformationGoals may be documented in an alternate sectionNo InformationNot on filedocumented as of this encounterNot on filedocumented as of this encounterGoals may be documented in an alternate section REASON FOR VISIT (unrecogniz ed section and content) Reason Comments Follow-up P/o lumbar lami Reason Comments Follow-up EPReview MRI Resul ts Reason Comments New Patient Reason Comments Patient Question Reason Comments New Patient Reason Comments New Patient Reason Comments Established Patient Follow Up Source Comments (unrecognize d section and content) In the event this informatio n is protected by the Federal Confidentiality of Alcohol and Drug Abuse Patient Records regulations: The Federal rules restrict any use of the information to criminally investigate or prosecute any alcohol or drug abuse patient.[facility] the event this information is protected by the Federal Confidentiality of Alcohol and Drug Abuse Patient Records regulations: The Federal rules restrict any use of the information to criminally investigate or prosecute any alcohol or drug abuse patient.[facility] the event this information is protected by the Federal Confidentiality of Alcohol and Drug Abuse Patient Records regulations: The Federal rules restrict any use of the information to criminally investigate or prosecute any alcohol or drug abuse patient.[facility] the event this information is protected by the Federal Confidentiality of Alcohol and Drug Abuse Patient Records regulations: The Federal rules restrict any use of the information to criminally investigate or prosecute any alcohol or drug abuse patient.[facility]In the event this information is protected by the Federal Confidentiality of Alcohol and Drug Abuse Patient Records regulations: The Federal rules restrict any use of the information to criminally investigate or prosecute any alcohol or drug abuse patient.[facility]In the event this information is protected by the Federal Confidentiality of Alcohol and Drug Abuse Patient Records regulations: The Federal rules restrict any use of the information to criminally investigate or prosecute any alcohol or drug abuse patient.[facility] SouthIn the event this information is protected by the Federal Confidentiality of Alcohol and Drug Abuse Patient Records regulations: The Federal rules restrict any use of the information to criminally investigate or prosecute any alcohol or drug abuse patient.[facility]In the event this information is protected by the Federal Confidentiality of Alcohol and Drug Abuse Patient Records regulations: The Federal rules restrict any use of the information to criminally investigate or prosecute any alcohol or drug abuse patient.[facility] SouthIn the event this information is protected by the Federal Confidentiality of Alcohol and Drug Abuse Patient Records regulations: The Federal rules restrict any use of the information to criminally investigate or prosecute any alcohol or drug abuse patient.[facility] SouthIn the event this information is protected by the Federal Confidentiality of Alcohol and Drug Abuse Patient Records regulations: The Federal rules restrict any use of the information to criminally investigate or prosecute any alcohol or drug abuse patient.[facility] SouthIn the event this information is protected by the Federal Confidentiality of Alcohol and Drug Abuse Patient Records regulations: The Federal rules restrict any use of the information to criminally investigate or prosecute any alcohol or drug abuse patient.[facility] FOR RECORDS PERTAINING TO PATIENTS WHO ARE [...] BE BASED ON THE PRIMARY CLINICAL RECORDS. [facility]. provides no warranty or guarantee of the accuracy or completeness of information in this document.
== END 2024-04-27 12:42 | disposition home or self-care (01) ==
LOC: MRI 12:41
PROVIDERS: PCP Family Medicine
DX: M48.52XA Collapsed vertebra, not elsewhere classified, cervical region, initial encounter for fracture (principal); M48.54XA Collapsed vertebra, not elsewhere classified, thoracic region, initial encounter for fracture
CPT/HCPCS: 72141; 72146

== ENCOUNTER 2024-06-14 11:15 | Outpatient (OUT) | payer OTHER, SELFPAY ==
[2024-06-14 11:48] LABS: Anion Gap 11.4; BUN Creatinine Ratio 15.4; Calcium 8.7 mg/dL (8.5-10.1); Carbon Dioxide 27.8 mmol/L (21.0-32.0); Chloride 102 mmol/L (98-107); Estimated GFR (African America >60 (>=60 mL/min/1.73m^2); Estimated GFR (Non-African Ame >60 (>=60 mL/min/1.73m^2); Glucose 89 mg/dL (74-106); Potassium 4.2 mmol/L (3.5-5.1); Sodium 137 mmol/L (136-145)
== END 2024-06-14 11:16 | disposition home or self-care (01) ==
LOC: LAB 11:16
PROVIDERS: PCP Family Medicine; Visit Provider Family Medicine
DX: I10 Essential (primary) hypertension (principal)
CPT/HCPCS: 36415; 80048

== ENCOUNTER 2024-07-03 07:46 | Outpatient (OUT) | payer OTHER, SELFPAY ==
--- NOTE | 2024-07-03 07:51 | MR_ITS ---
[address] [address] Patient Name: ENRRIQUE MADERA MRN: [facility]:[id number] date: 1965 Sex: M Assigned Patient Location: MRI Current Patient Location: Accession/Order Number: [id number] Exam Date: 07/03/2024 08:00 Report Date: 07/04/2024 09:03 At the request of: DAMIAN OLIVARES Procedure: MR lumbar spine wo con EXAMINATION: MR lumbar spine wo con HISTORY: Left Leg Numbness COMPARISON: 05/05/2023 TECHNIQUE: A variety of imaging planes and parameters were utilized for visualization of suspected pathology. FINDINGS: For the purposes of numbering, sagittal T2 image # 9 extends from the T11 vertebral body superiorly to the S3-S4 level inferiorly. PARASPINAL AREA: Normal with no visible mass. BONES: 5 mm retrolisthesis of L5 in relation S1. There is 50% anterior wedge compression fracture of T12. Signal abnormality along the inferior L3 and superior L4 vertebral bodies likely Modic 2 change CORD/CAUDA EQUINA: Normal caliber, contour, and signal intensity. DISC LEVELS: 12-L1: No significant disc/facet abnormality, spinal stenosis, or foraminal stenosis. L1-L2: No significant disc/facet abnormality, spinal stenosis, or foraminal stenosis. L2-L3: Moderate disc space narrowing and disc desiccation. Posterior disc protrusion up to 2 mm. Ligamentum flavum hypertrophy and facet osteoarthropathy. No central canal stenosis. Mild bilateral foraminal stenosis L3-L4: Right-sided disc collapse with endplate sclerosis and Modic changes of the vertebral bodies. Moderate to severe diffuse disc/osteophyte complex with posterior broad-based disc herniation of the protrusion type extending posteriorly up to 5.5 mm, sagittal image #9. Ligamentum flavum hypertrophy and facet osteoarthropathy. Moderate to severe central canal stenosis axial image #20. Severe bilateral foraminal stenosis right greater than left L4-L5: Moderate disc space narrowing and disc desiccation. Posterior left paracentral and abdominal broad-based disc herniation of the protrusion type extending posteriorly up to 4 mm. This effaces the nerves resulting in severe left foraminal stenosis. No central canal or right foraminal stenosis L5-S1: Disc collapse. Retrolisthesis of L5. Mild disc/osteophyte complex. No central or foraminal stenosis MR/MR lumbar spine wo con IMPRESSION: Degenerative changes resulting in moderate and severe central and foraminal stenosis most significant at L3-L4 Electronically authenticated by: ELIAS HOPPER Date: 07/04/2024 09:03
== END 2024-07-03 07:47 | disposition home or self-care (01) ==
LOC: MRI 07:46
PROVIDERS: PCP Family Medicine; Visit Provider Family Medicine
DX: R20.0 Anesthesia of skin (principal); M51.369 Other intervertebral disc degeneration, lumbar region without mention of lumbar back pain or lower extremity pain
CPT/HCPCS: 72148

== ENCOUNTER 2024-08-22 09:15 | Outpatient (OUT) | payer OTHER, SELFPAY ==
[2024-08-22 10:05] LABS: Estimated Average Glucose 111 mg/dL; Glycohemoglobin A1C 5.5 % (4.5-6.2)
[2024-08-22 10:10] LABS: Basophils Percent Auto 0.1 % (0.2-2.0); Eosinophils Absolute Auto 0.6 10^3/uL (0.0-0.7); Eosinophils Percent Auto 7.3 % (0.9-7.0); Hematocrit 44.1 % (42.0-54.0); Immature Granulocytes Abs Auto 0.09 10^3/uL (0.00-0.03); Immature Granulocytes Pct Auto 1.2 % (0.0-0.5); Lymphocytes Absolute Auto 1.8 10^3/uL (1.2-3.8); Lymphocytes Percent Auto 23.1 % (20.5-60.0); Mean Corpuscular Hemoglobin 30.2 pg (25.9-34.0); Mean Corpuscular Volume 88.9 fL (80.0-94.0); Mean Platelet Volume 9.3 fL (9.5-13.5); Monocytes Absolute Auto 0.8 10^3/uL (0.3-0.8); Monocytes Percent Auto 9.9 % (1.7-12.0); Neutrophils Absolute Auto 4.6 10^3/uL (1.4-6.5); Neutrophils Percent Auto 58.4 % (43.0-75.0); Platelet Count 287 10^3/uL (150-450); Red Blood Count 4.96 10^6/uL (4.70-6.10); Red Cell Distribution Width 12.6 % (11.0-15.0); White Blood Count 7.8 10^3/uL (4.0-11.0)
[2024-08-22 10:21] LABS: Alanine Aminotransferase 46 U/L (16-63); Albumin Globulin Ratio 1.2; Albumin Level 3.3 g/dL (3.4-5.0); Alkaline Phosphatase 92 U/L (46-116); Amylase 155 U/L (25-115); Anion Gap 8.9; Aspartate Amino Transferase 23 U/L (15-37); BUN Creatinine Ratio 22.1; Bilirubin Total 0.9 mg/dL (0.2-1.0); Calcium 8.6 mg/dL (8.5-10.1); Carbon Dioxide 32.2 mmol/L (21.0-32.0); Chloride 100 mmol/L (98-107); Chol HDL Ratio 2.9; Cholesterol 173 mg/dL (<=200); Estimated GFR (African America >60 (>=60 mL/min/1.73m^2); Estimated GFR (Non-African Ame >60 (>=60 mL/min/1.73m^2); Globulin 2.8 g/dL; Glucose 80 mg/dL (74-106); HDL Cholesterol 59 mg/dL (40-60); LDL Cholesterol Calculated 105.2 mg/dL; Potassium 4.1 mmol/L (3.5-5.1); Sodium 137 mmol/L (136-145); Thyroid Stimulating Hormone 2.633 uIU/mL (0.358-3.740); Total Protein 6.1 g/dL (6.4-8.2); Triglycerides 44 mg/dL (<=150); Uric Acid 4.7 mg/dL (3.5-7.2); VLDL CHOLESTEROL 8.8 mg/dL
[2024-08-22 10:33] LABS: Prostate Specific Antigen Scrn 4.22 ng/mL (<=4.00)
[2024-08-23 08:12] LABS: CA 19-9 14 U/mL (0-35); CEA 1.3 ng/mL (0.0-4.7)
[2024-08-23 11:07] LABS: Insulin 4.2 uIU/mL (2.6-24.9)
== END 2024-08-22 09:16 | disposition home or self-care (01) ==
LOC: LAB 09:19
PROVIDERS: PCP Family Medicine; Visit Provider Family Medicine
DX: Z00.00 Encounter for general adult medical examination without abnormal findings (principal); R63.4 Abnormal weight loss
CPT/HCPCS: 36415; 80053; 80061; 82150; 82378; 83036; 83525; 83690; 84436; 84443; 84481; 84550; 85025; 86301; G0103

== ENCOUNTER 2024-08-23 11:03 | Outpatient (OUT) | payer OTHER, SELFPAY ==
--- NOTE | 2024-08-23 11:09 | US_ITS ---
The [address] [address] Patient Name: ENRRIQUE MADERA MRN: [id number] date: 1965 Sex: M Assigned Patient Location: US Current Patient Location: Accession/Order Number: [id number] Exam Date: 08/23/2024 11:11 Report Date: 08/23/2024 11:39 At the request of: DAMIAN OLIVARES Procedure: US right upper quadrant EXAM: US right upper quadrant HISTORY: Abnormal Laboratory Test COMPARISON: None. TECHNIQUE: Grayscale, color and Doppler FINDINGS: The liver is normal in size, contour and echotexture measuring 16.8 cm in length. No hepatic mass. Hepatopedal flow in the main portal vein. The visualized pancreas is normal The gallbladder is normal. The wall measures 1.9 mm the common bile duct measures 2.8 mm. Negative sonographic Barrera sign The right kidney is normal measuring 10.8 x 5.4 x 5.5 cm. No free fluid US/US right upper quadrant IMPRESSION: No abnormality Electronically authenticated by: ELIAS HOPPER Date: 08/23/2024 11:39
[2024-08-23 11:52] LABS: Amylase 137 U/L (25-115)
[2024-08-24 04:08] LABS: PSA, Free 0.56 ng/mL; Prostate Specific Ag 3.2 ng/mL (0.0-4.0)
== END 2024-08-23 11:04 | disposition home or self-care (01) ==
LOC: US 11:04
PROVIDERS: PCP Family Medicine; Visit Provider Family Medicine
DX: R89.9 Unspecified abnormal finding in specimens from other organs, systems and tissues (principal)
CPT/HCPCS: 36415; 76705; 82150; 83690; 84153; 84154

== ENCOUNTER 2024-09-18 10:51 | Outpatient (OUT) | payer OTHER, SELFPAY ==
--- OUTSIDE RECORDS SUMMARY | 2024-09-18 10:56 | XMS_ITS | CCD ---
Author Organization [facility] Care Team Providers Care Brace End Mainspring Former Name Role Phone NAKIA SIMEON Unavailable Unavailable DANIEL WILSON Unavailable UnavailDR KAYLIE Ratliff Primary Care Unavailable CONSUELO SINGH Attending Unavailable CONSUELO SINGH Consulting Unavailable CONSUELO SINGH Admitting Unavailable MD Carole Jensen Attending Provider MD Nakia Simeon Primary Care Provider Carole Jensen Unavailable [phone] MD Nakia Simeon Primary Care Provider [phone] ZACHARY Galan Attending Provider Melissa Galan Unavailable Devi Munoz DO Primary Care Provider WENDY PADRON Referring Unavailable HOUSE, DEVI Pereyra Primary Care Unavailable WENDY PADRON Referring Unavailable DEVI MUNOZ Primary Care Unavailable NAKIA SIMEON Referring Unavailable DEVI MUNOZ Primary Care Unavailable WENDY PADRON Attending Unavailable DANIEL CHILDRESS Attending Unavailable DEVI MUNOZ Referring Unavailable DEVI MUNOZ Primary Care Unavailable Hany Olivares MD Primary Care Provider [phone] Amarilis QUISPE, Jacinto Dai Attending Shaila WALDRON, Ortiz Werner Attending Maxx Olmos MD, Jacinto Dai Attending Shaila WALDRON, Ortiz Werner Attending Maxx Olmos MD, Jacinto Dai Attending Shaila Olmos MD, Jacinto Dai Attending Shaila Olmos MD, Jacinto Dai Attending Shaila WALDRON, Ortiz Werner Attending Maxx Olmos MD, Jacinto Dai Attending Shaila hobbs Huntley 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, Ortiz Werner Attending U CAROLE Cadet Attending Unavailable NAILA PAULINO Referring Unava ilable LUZ LEEJOSE Linton Attending Unavailable PACENTA, KIAN Referring Unavailable HOY, HANY M Primary Care Unavailable HOY, HANY M Primary Care Unavailable VIOLETA BLACK Attending Unavailable PACENTA, KIAN Referring Unavailable HOY, HANY M Primary Care Unavailable HSIAALISON T Referring Unavailable HOY, HANY M Primary Care Unavailable CIELO, TACO K Attending Unavailable CIELO, TACO K Admitting Unavailable Hotom Hany Primary Care Physician MARLINEL, Wilmer Merlos Attending Unavailable NILL, Wilmer Merlos Referring Unavailable NILL, Wilmer Merlos Admitting Unavailable NILL, Wilmer Merlos Attending Unavailable NILL, Wilmer Merlos Attending Unavailable Hany Olivares Referring Unavailable NILL, Wilmer Merlos Attending Unavailable MD Naila Paulino Attending Provider Unavailable DO Devi Munoz Primary Care Provider [phone] NILL, Wilmer Merlos Admitting Unavailable NILL, Wilmer Merlos Referring Unavailable NILL, Wilmer Merlos Attending Unavailable NILL, Wilmer Merlos Admitting Unavailable NILL, Wilmer Merlos Referring Unavailable NILL, Wilmer Merlos Attending Unavailable NILWellington, Wilmer Merlos Attending Unavailable Naila Paulino Attending Unava ilable Naila Paulino Admitting Unava ilable Devi Munoz Primary Care Unavailable PROVIDER, UNKNOWN Attending Unavailable PROVIDER, UNKNOWN Admitting Unavailable DUC HOLCOMB Referring Unavailable Unavailable Primary Care Provider Naila Saldana MD Attending Provider Unavailable Devi Munoz DO Primary Care Provider [phone] Nakia Simeon MD Primary Care Provider DEVI MUNOZ Primary Care Unavailable HuntleyOrtiz Admitting Unavailable Ortiz Gutierres Attending Unavailable DEVI MUNOZ Primary Care Unavailable KINDL JACINTO F Admitting Unavailable KINDL, JACINTO F Attending Unavailable KINDL, JACINTO F Attending Unavailable DEVI MUNOZ Primary Care Unavailable KINDL, JACINTO F Admitting Unavailable DEVI MUNOZ Primary Care Unavailable HuntleyOrtiz moctezuma Admitting Unavailable Ortiz Gutierres Attending Unavailable KINDL, JACINTO F Admitting Unavailable HOUSE, DEVI P Primary Care Unavailable KINDL, JACINTO F Attending Unavailable HOUSE, DEVI P Primary Care Unavailable Huntley, Ortiz M Admitting Unavailable Huntley, Ortiz M Attending Unavailable HOUSE, DEVI P Primary Care Unavailable Huntley, Ortiz M Attending Unavailable Huntley, Ortiz M Admitting Unavailable KINDL, JACINTO F Attending Unavailable HOUSE, DEVI P Primary Care Unavailable KINDL, JACINTO F Admitting Unavailable KINDL, JACINTO F Attending Unavailable HOUSE, DEVI P Primary Care Unavailable KINDL, JACINTO F Admitting Unavailable KINDL, JACINTO F Attending Unavailable HOUSE, DEVI P Primary Care Unavailable KINDL, JACINTO F Admitting Unavailable HOUSE, DEVI P Primary Care Unavailable Huntley, Ortiz M Admitting Unavailable Huntley, Ortiz M Attending Unavailable HOY, HANY Primary Care Unavailable HOUSE, DO DEVI P Admitting Unavailable HOUSE, DEVI P Primary Care Unavailable HOUSE, DO DEVI P Attending Unavailable HOUSE, DEVI P Primary Care Unavailable Huntley, Ortiz M Attending Unavailable Huntley, Ortiz M Admitting Unavailable HOUSE, DEVI P Primary Care Unavailable Huntley, Ortiz M Attending Unavailable Huntley, Ortiz M Admitting Unavailable HOUSE, DO DEVI P Attending Unavailable Nakia Simeon MD Primary Care Unavailable HOUSE, DO DEVI P Attending Unavailable HOUSE, DEVI P Primary Care Unavailable HOUSE, DEVI P Primary Care Unavailable Huntley, Ortiz M Admitting Unavailable Huntley, Ortiz M Attending Unavailable HOUSE, DO DEVI P Attending Unavailable HOUSE, DEVI P Primary Care Unavailable HOUSE, DEVI P Primary Care Unavailable Huntley, Ortiz M Admitting Unavailable Huntley, Ortiz M Attending Unavailable HOUSE, DEVI P Primary Care Unavailable Huy 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, Wendy Attending Unakeysha Padron APRN-FIELD LOGISTICS COORDINATOR, Wendy Admitting Unavai lable HOY, HANY M Primary Care Unavailable HSIA, ALISON T Attending Unavailable HOY, HANY M Primary Care Unavailable PACENTA, KIAN Attending Unavailable PACENTA, KIAN Referring Unavailable HOY, HANY M Primary Care Unavailable HSIA, ALISON T Attending Unavailable JEOVANY, BILAL Attending Unavailable HOY, HANY M Primary Care Unavailable HOY, HANY M Primary Care Unavailable HSIA, ALISON T Referring Unavailable HOY, HANY M Primary Care Unavailable HSIA, ALISON T Attending Unavailable HOY, HANY M Primary Care Unavailable HOY, HANY M Primary Care Unavailable PACENTA, KIAN Attending Unavailable HOY, HANY M Primary Care Unavailable WILMER ASHLEY Attending Unavailable JACKIE KEITA Attending Unavailable KISHORE MCMANUS Admitting Unavailable HANY OLIVARES Primary Care Unavailable AJITJESUS ALISON Bethany Referring Unavailable HANY OLIVARES Primary Care Unavailable Wilmer RUBIN Attending Unavailable Wilmer RUBIN Attending Unavailable Hany Olivares Referring Unavailable Wilmer RUBIN Attending Unavailable PURNIMA SARAH Attending Unavailable Hany Olivares Referring Unavailable Allergies Allergy Classification Reported Allergen(s) Allergy Type Date of Onset Reaction(s) Facility (4 sources) Other; Translations: [OTHER] Propensity to adverse reactions 3 Other (See Comments) [facility] (20 sources) oxyCODONE; Translations: [OXYCODONE] Drug Allergy 3 Unknown [facility] Work Phone: (3 sources) No Known Medication Allergies; Translations: [No Known Medication Allergies] Propensity to adverse reactions (disorder) [facility] Repository (1 source) narcotic analgesics; Translations: [narcotic analgesics] Propensity to adverse reactions to drug (disorder) [facility] Repository Medications Current Medications Medication Drug Class(es) Dates Sig (Normalized) Sig (Original) acetaminophen 500 mg oral tablet (4 sources) Start: 03-23-2024 End: 03-30-2024 take 2 tablets by mouth every eight hours acetaminophen (TYLENOL) 500 mg tablet Take 2 tablets by mouth every 8 hours for 7 days. 42 tablet 0 03/23/2024 03/30/2024 Active acetaminophen 325 mg / oxyCODONE hydrochloride 5 mg oral tablet (1 source) Opioid Agonist Start: 05-07-2024 End: 05-12-2024 take 1 tablet by mouth every six hours acetaminophen-oxyco done 325 mg-5 mg Tab 1 tab(s), Oral, q6hr Pain, 12 tab(s), Refill(s) 0, take with food or milk not to exceed 4000 mg acetaminophen per day, [id number], 181, cm, 05/03/24 14:49:00 EDT, Height/Length Dosing, 86.1, kg, 05/03/24 14:49:00 EDT, Weight Dosing Start Date: 05/07/24 Stop Date: 05/12/24 Status: Ordered ALPRAZolam 0.25 mg oral tablet (11 sources) Benzodiazepine Start: 04-20-2024 End: 06-08-2024 ALPRAZolam (XANAX) 0.25 mg tablet Indications: Claustrophobia take 1 hour prior to mri. 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 1 tablet 04/20/2024 06/08/2024 Active 168 hr buprenorphine 0.01 mg/hr transdermal system (20 sources) Partial Opioid Agonist Start: 07-03-2024 apply 10 ug transdermal route every week Buprenorphine 10 mcg/hour patch weekly Active 1 PATCH TRANSDERML Q7D 4 July 03, 2024 9:44am Do not fill until 07/11/24 Start: 04-25-2024 buprenorphine as directed, TransDermal, Refills(s) 0, Pain Start Date: 04/25/24 Status: Ordered Start: 04-25-2024 buprenorphine as directed, Refills(s) 0 Start Date: 04/25/24 Status: Ordered Start: 02-24-2024 apply 1 dose transde rmal route every week buprenorphine (BUTRANS) 15 mcg/hour patch Apply 1 Patch as directed one time a week. 02/24/2024 Active Start: 02-24-2024 BUTRANS 5 mcg/ hour Apply as directed. 0 02/24/2024 Active 12 hr buPROPion hydrochloride 150 mg extended release oral tablet (20 sources) Aminoketone Start: 08-23-2024 take 1 tablet by mouth twice daily Wellbutrin SR 150 mg Tab-ER 150 mg = 1 tab(s), Oral, BID, Refills(s) 0 Start Date: 08/23/24 Status: Ordered Start: 04-27-2024 take 1 tablet by mana th once daily Wellbutrin XL 300 mg/24 hours Tab-ER 300 mg = 1 tab(s), Oral, Daily, Refills(s) 0 Start Date: 04/27/24 Status: Ordered take 1 tablet by mana th every twelve hours buPROPion SR (Wellbutrin SR) 150 MG 12 hr tablet Not Available Oral for 30 Days Active take 1 tablet by mana th once daily in the morning buPROPion (WELLBUTRIN) 100 mg tablet Take 1 tablet (100 mg total) by mouth every morning. 0 Active buPROPion HBr ER Active Calcium Citrate / Vitamin D (4 sources) Start: 05-07-2024 calcium-vitamin D Refill(s) 0 Start Date: 05/07/24 Status: Ordered cyclobenzaprine hydrochloride 10 mg oral tablet (1 source) Muscle Relaxant Start: 04-25-2024 take 1 tablet by mouth three times daily as needed for muscle spasms cyclobenzaprine 10 mg Tab 10 mg = 1 tab(s), Oral, TID, PRN for spasm, Refills(s) 0 Start Date: 04/25/24 Status: Ordered diclofenac sodium 50 mg delayed release oral tablet (20 sources) Nonsteroidal Anti-inflammatory Drug Start: 06-11-2024 take 1 tablet by mouth twice daily Diclofenac Sodium 50 mg tablet,delayed release (DR/EC) Active 50 MG PO Twice daily June 10, 2024 11:00pm Start: 03-23-2024 End: 03-31-2024 apply 1 dose topically twice daily diclofenac (FLECTOR) 1.3 % topical patch Apply 1 Patch as directed two times a day for 7 days. 30 Patch 0 03/23/2024 03/31/2024 Active Start: 08-02-2023 take 1 tablet by mana twice daily diclofenac, EC, (VOLTAREN) 75 mg EC tablet Take 75 mg by mouth two times a day. 08/02/2023 Active Pepcid (1 source) Histamine-2 Receptor Antagonist Start: 08-23-2024 Pepcid Refills(s) 0 Start Date: 08/23/24 Status: Ordered FLUoxetine 40 mg oral capsule (20 sources) Serotonin Reuptake Inhibitor Start: 04-27-2024 take 1 capsule by mouth once daily Prozac 40 mg Cap 40 mg = 1 cap(s), Oral, Daily, Refills(s) 0 Start Date: 04/27/24 Status: Ordered take 2 capsules by mouth once da ayden FLUoxetine (PROZAC) 20 mg capsule Take 40 mg by mouth once daily. Active FLUoxetine (PROz ac) 20 MG capsule Not Available Oral for 30 Days Active FLUoxetine (PROZ AC) 10 mg capsule Take 10 mg by mouth. 0 Active take 1 capsule by mouth once cornelius ly FLUoxetine HCl 20 MG 1 capsule Orally Once a day Active gabapentin 800 mg oral tablet (15 sources) Anti-epileptic Agent Start: 08-23-2024 take 1 tablet by mouth four times daily gabapentin 800 mg Tab 800 mg = 1 tab(s), Oral, QID, Refills(s) 0 Start Date: 08/23/24 Status: Ordered Start: 06-11-2024 take 1 capsule by mo [facility] four times daily Gabapentin 300 mg capsule Active 300 MG PO Four times daily June 10, 2024 11:00pm Start: 04-25-2024 [facility] 600 mg Tab 600 mg = 1 tab(s), Oral, TID, Refills(s) 0 Start Date: 04/25/24 Status: Ordered Start: 02-14-2024 End: 03-15-2024 gabapentin (NEURONTIN) 600 m g tablet 600 mg. 0 02/14/2024 03/15/2024 Active Start: 05-20-2023 take 1 capsule by [facility] three times daily gabapentin (NEURONTIN) 300 mg capsule Indications: neuropathic pain Take 1 capsule (300 mg total) by mouth 3 (three) times a day Indications: neuropathic pain. 0 05/20/2023 Active hydroCHLOROthiazide 12.5 mg oral tablet (1 source) Thiazide Diuretic Start: 08-23-2024 take 1 tablet by mouth once daily hydrochlorothiazide 12.5 mg Tab 12.5 mg = 1 tab(s), Oral, Daily, Refills(s) 0 Start Date: 08/23/24 Status: Ordered hydroCHLOROthiazide 25 mg / lisinopril 20 mg oral tablet (3 sources) Thiazide Diuretic, Angiotensin Converting Enzyme Inhibitor take 1 tablet by mouth once daily lisinopril-hydroCHLOROt hiazide (ZESTORETIC) 20-25 mg per tablet Take 1 tablet by mouth once daily. 0 Active lisinopril 40 mg oral tablet (20 sources) Angiotensin Converting Enzyme Inhibitor Start: 04-25-2024 take 1 tablet by mouth once daily lisinopril 40 mg Tab 40 mg = 1 tab(s), Oral, Daily, Refills(s) 0 Start Date: 04/25/24 Status: Ordered Start: 03-24-2024 End: 04-23-2024 take 1 tablet by mouth once daily lisinopril (ZESTRIL) 20 mg tablet Take 1 tablet by mouth once daily. 30 tablet 03/24/2024 Active magnesium citrate (4 sources) Start: 05-07-2024 magnesium citr ate Refill(s) 0 Start Date: 05/07/24 Status: Ordered methocarbamol 500 mg oral tablet (16 sources) Muscle Relaxant Start: 04-27-2024 take 500 mg by mouth every four hours as needed for pain methocarbamol 500 mg, Oral, q4hr, PRN as needed for pain, Refills(s) 0 Start Date: 04/27/24 Status: Ordered Start: 04-27-2024 methocarbamol Refills(s) 0 Start Date: 04/27/24 Status: Ordered Start: 03-28-2024 End: 03-31-2024 take 1 tablet by mouth three times [...] Active naloxone 4 mg/actuation nasal spray (NARCAN) (20 sources) Start: 07-27-2023 take 4 mg nasal [...] omeprazole 40 mg delayed release oral capsule (20 sources) Proton Pump Inhibitor Start: 08-23-2024 take 1 capsule by mouth twice daily omeprazole 40 mg Cap-DR 40 mg = 1 cap(s), Oral, BID, Refills(s) 0 Start Date: 08/23/24 Status: Ordered take 1 capsule by mo [facility] once daily as needed omeprazole (PRILOSEC) 40 mg capsule Take 40 mg by mouth once daily as needed. Active take 1 capsule by mo [facility] once daily before breakfast omeprazole (PriLOSEC) 20 [...] 0 03/23/2024 03/30/2024 Active polyethylene glycol 3350 26264 mg powder for oral solution (6 sources) Osmotic Laxative Start: 03-23-2024 End: 04-22-2024 polyethylene glycol 3350 17 gram packet Take 1 Packet by mouth two times a day. Dissolve dose in 4 - 8 ounces of liquid and take as directed. 60 Packet 03/23/2024 04/22/2024 Active pregabalin 200 mg oral capsule (19 sources) Start: 03-24-2024 End: 04-23-2024 take 1 capsule by mouth three times daily Pregabalin (LYRICA) 200 mg capsule Indications: Acute on chronic low back pain Take 1 capsule by mouth three times a day for 30 days. 90 capsule 03/24/2024 Active sennosides, fdc 8.6 mg oral tablet (6 sources) Start: 03-23-2024 End: 04-22-2024 take 1 tablet by mouth twice daily senna (SENOKOT) 8.6 mg tab Take 1 tablet by mouth two times a day. 60 tablet 03/23/2024 04/22/2024 Active sildenafil 20 mg oral tablet (20 sources) Phosphodiesterase 5 Inhibitor Start: 11-19-2023 take 2-3 tablets by mouth once daily as needed sildenafil (REVATIO) 20 mg tablet 2 TO 3 TABLETS, Oral, Daily, PRN: NEEDED, # 90 tab(s), 1 Refill(s), Pharmacy: [id number], TAKE 2 TO 3 TABLETS BY MOUTH ONCE DAILY NEEDED, 182.88, cm, 12/16/23 6:36:00 EDT, Height, 89.3, kg, 12/16/23 6:42:00 EDT, Weight Dosing 11/19/2023 Active tamsulosin hydrochloride 0.4 mg oral capsule (19 sources) alpha-Adrenergic Sharmin Start: 03-23-2024 End: 04-22-2024 take 1 capsule by mouth once daily at bedtime tamsulosin (FLOMAX) 0.4 mg Take 1 capsule by mouth daily at bedtime. 30 capsule 03/23/2024 Active terbinafine 250 mg oral tablet (2 sources) Allylamine Antifungal Start: 01-14-2023 take 1 tablet by mouth in the morning terbinafine (LamISIL) 250 MG tablet Take 250 mg by mouth in the morning. 01/14/2023 Active 28 actuat teriparatide 0.02 mg/actuat pen injector (13 sources) Parathyroid Hormone Analog Start: 05-02-2024 inject 0.08 mL by subcutaneous injection once daily Teriparatide (FORTEO) 20 mcg/dose (600mcg/2.4mL) Indications: Age-related osteoporosis with current pathological fracture with malunion, subsequent encounter Inject 0.08 mL subcutaneously once daily. 3 Each 3 05/02/2024 Active traMADol hydrochloride 50 mg oral tablet [...] days. 30 tablet 1 10/04/2023 10/18/2023 Active traZODone hydrochloride 100 mg oral tablet (7 sources) Serotonin Reuptake Inhibitor Start: 08-23-2024 take 1 tablet by mouth once daily at bedtime traZODONE 100 mg Tab 100 mg = 1 tab(s), Oral, Once a day (at bedtime), Refills(s) 0 Start Date: 08/23/24 Status: Ordered Start: 04-25-2024 take 1 tablet by mana th once daily at bedtime traZODONE 50 mg Tab 50 mg = 1 tab(s), Oral, Once a day (at bedtime), Refills(s) 0 Start Date: 04/25/24 Status: Ordered Completed/Discontinued Medications Medication Drug Class(es) Dates Sig (Normalized) Sig (Original) Buprenorphine (Butrans) 7.5 mcg/hour patch weekly (2 sources) Start: 06-11-2024 End: 07-03-2024 apply 7.5 ug transdermal route every week Buprenorphine (Butrans) 7.5 mcg/hour patch weekly Discontinued 1 PATCH TRANSDERML Q7D 4 June 10, 2024 11:00pm July 03, 2024 9:45am Start: 06-11-2024 apply 7.5 ug transde rmal route every week Buprenorphine (Butrans) 7.5 mcg/hour patch weekly Active 1 PATCH TRANSDERML Q7D 4 June 10, 2024 11:00pm Problems Active Problems Problem Classification Problem Date Documented Date Episodic/Chronic Abdominal hernia (11 sources) Right inguinal hernia ; Translations: [Inguinal hernia] Onset: 04-27-2024 04-27-2024 Episodic Diseases of mouth; excluding dental (1 source) Acute sialoadenitis; Translations: [Acute sialoadenitis] Onset: 01-08-2018 Episodic Esophageal disorders (20 sources) Gastroesophageal reflux disease without esophagitis; Translations: [Gastro-esophageal reflux disease without esophagitis] Onset: 03-01-2024 Resolved: 03-01-2024 03-01-2024 Chronic Essential hypertension (20 sources) Hypertensive disorder; Translations: [Essential (primary) hypertension] Onset: 03-01-2024 Resolved: 03-01-2024 03-01-2024 Chronic Osteoporosis (9 sources) Osteoporosis; Translations: [Senile osteoporosis] Onset: 07-06-2024 04-25-2024 Chronic Other connective tissue disease (3 sources) Other symptoms and signs involving the musculoskeletal system; Translations: [Other musculoskeletal symptoms referable to limbs] Onset: 09-06-2023 09-06-2023 Episodic Other fractures (2 sources) Compression fracture of thoracic spine; Translations: [Wedge compression fracture of unspecified thoracic vertebra, initial encounter for closed fracture] 04-11-2024 Episodic Other fractures (1 source) Closed fracture thoracic vertebra; Translations: [Other fracture of unspecified thoracic vertebra, initial encounter for closed fracture] 04-11-2024 Episodic Other nervous system disorders (7 sources) Circadian rhythm sleep disorder of shift work type; Translations: [Circadian rhythm sleep disorder, shift work type] 03-15-2024 Chronic Other nervous system disorders (4 sources) Circadian rhythm sleep disorder, shift work type; Translations: [Circadian rhythm sleep disorder, shift work type] Chronic Other nervous system disorders (20 sources) Chronic pain; Translations: [Other chronic pain] Onset: 03-01-2024 Resolved: 03-01-2024 03-01-2024 Chronic Other nervous system disorders (6 sources) Other chronic pain; Translations: [Other chronic pain] Onset: 03-19-2024 06-11-2024 Chronic Other nervous system disorders (1 source) Postoperative pain ; Translations: [Other acute postprocedural pain] Onset: 05-07-2024 Episodic Other nutritional; endocrine; and metabolic disorders (1 source) Overweight 08-29-2024 Episodic Other nutritional; endocrine; and metabolic disorders (1 source) Overweight in adulthood with body mass index of 25 or more but less than 30 08-29-2024 Episodic Other screening for suspected conditions (not mental disorders or infectious disease) (1 source) Screening for malignant neoplasm of colon done; Translations: [Encounter for screening for malignant neoplasm of colon] Onset: 08-29-2024 Episodic Other upper respiratory disease (1 source) Other specified disorders of nose and nasal sinuses; Translations: [OTH SPEC D/O NOSE NASAL SINUSES] Onset: 08-24-2021 Episodic Residual codes; unclassified (20 sources) Obstructive sleep apnea syndrome; Translations: [Obstructive sleep apnea (adult) (pediatric)] Onset: 03-19-2024 03-15-2024 Chronic Residual codes; unclassified (5 sources) Obstructive sleep apnea (adult) (pediatric); Translations: [Obstructive sleep apnea (adult)(pediatric)] Chronic Residual codes; unclassified (3 sources) History of lumbar laminectomy; Translations: [Other specified postprocedural states] 09-06-2023 Episodic Residual codes; unclassified (1 source) Cognitive perceptual pattern; Translations: [Unspecified symptoms and signs involving general sensations and perceptions] 09-06-2023 Episodic Residual codes; unclassified (1 source) Unspecified symptoms and signs involving general sensations and perceptions; Translations: [Unspecified symptoms and signs involving general sensations and perceptions] Onset: 09-06-2023 Episodic Residual codes; unclassified (5 sources) History of operative procedure on lumbar spinal structure; Translations: [Other specified postprocedural states] 03-01-2024 Episodic Spondylosis; intervertebral disc disorders; other back problems (20 sources) Degeneration of lumbosacral intervertebral disc; Translations: [Other intervertebral disc degeneration, lumbosacral region] Onset: 05-15-2024 02-10-2024 Chronic Spondylosis; intervertebral disc disorders; other back problems (20 sources) Lumbar radiculopathy; Translations: [Radiculopathy, lumbar region] Onset: 03-17-2014 Resolved: 03-23-2024 09-06-2023 Episodic Unclassified (3 sources) CONTACT W/AND (SUSP) EXPOS COVID-19; Translations: [CONTACT W/AND (SUSP) EXPOS COVID-19] Onset: 08-24-2021 Unclassified (1 source) Patient encounter status 08-29-2024 Unclassified (1 source) Chronic low back pain, unspecified back pain laterality, unspecified whether sciatica present; Translations: [Chronic low back pain, unspecified back pain laterality, unspecified whether sciatica present] Onset: 03-19-2024 Past or Other Problems Problem Classification Problem Date Documented Da te Episodic/Chronic Fluid and electrolyte disorders (20 sources) Hypokalemia; Translations: [Hypokalemia] Onset: 03-20-2024 Resolved: 03-23-2024 03-23-2024 Episodic Genitourinary symptoms and ill-defined conditions (20 sources) Retention of urine; Translations: [Retention of urine, unspecified] Onset: 03-22-2024 Resolved: 03-23-2024 03-23-2024 Episodic Mood disorders (20 sources) Depressive disorder; Translations: [Depressive disorder] Onset: 03-01-2024 Resolved: 03-01-2024 03-01-2024 Chronic Mood disorders (2 sources) Mood disorders Onset: 07-25-2023 07-25-2023 Other bone disease and musculoskeletal deformities (20 sources) Chondromalacia; 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, right knee] Onset: 09-09-2020 Resolved: 03-01-2024 09-09-2020 Episodic Comment on above: Outside Source Comme nt: Overview: Added automatically from request for surgery [id number] Other connective tissue disease (1 source) Muscle wasting and atrophy, not elsewhere classified, right thigh; Translations: [Atrophy of muscle of right thigh] Onset: 03-19-2024 Episodic Other fractures (20 sources) Fracture of twelfth thoracic vertebra; Translations: [Stable burst fracture of T11-T12 vertebra, initial encounter for closed fracture] Onset: 03-17-2014 Resolved: 03-01-2024 03-01-2024 Episodic Other fractures (20 sources) Fracture of seventh cervical vertebra; Translations: [Unspecified displaced fracture of seventh cervical vertebra, initial encounter for closed fracture] Onset: 03-17-2014 03-19-2024 Episodic Other fractures (20 sources) Compression fracture of vertebral column; Translations: [Collapsed vertebra, not elsewhere classified, site unspecified, initial encounter for fracture] Onset: 03-17-2014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 visual loss. ENMT: no dentures, no hoarseness, no swallowing difficulties, no hearing loss, no ear infection(s), no nose bleeds. Cardiovascular: normal blood pressure, no chest pain, regular heartbeat, no heart murmur. Respiratory: no shortness of breath, no cough, no asthma, no wheezing. Gastrointestinal: no nausea, no vomiting, no diarrhea, no constipation, no blood in stool, no change in bowel habits, no abdominal pain, no hepatitis. Genitourinary: no kidney stones, no urine infection, no dysuria. Musculoskeletal: no pain, no weakness. Skin: no changing moles, no rash, no skin lumps. Neurologic: no seizures, no epilepsy, no headache. Psychiatric: no emotional or psychiatric problem. Heme/Lymph: no bleeding problems, no anemia, no blood clots, no transfusions. Allergy/Immunologic: no swollen lymph nodes/glands, no IV drug abuse. Other: Additional ROS info: Except as noted in the above Review of Systems and in the History of Present Illness, all other systems have been reviewed and are negative or noncontributory. Physical Exam abd: soft, nontender, nondistended, incision without erythema or drainage, no ecchymosis, no induration. Assessment/Plan 1. Reducible right inguinal hernia (K40.90: Unilateral inguinal hernia, without obstruction or gangrene, not specified as recurrent) doing well, resume regular activities; call with problems/questions. Follow-up No qualifying data available Problem List/Past Medical History Ongoing Hypertension Lumbar radiculopathy Osteoporosis Reducible right inguinal hernia Historical Chondromalacia Procedure/Surgical History Repair of right inguinal hernia (05/07/2024), CT guided kyphoplasty of fracture of lumbar spine, Decompression laminectomy of lumbar spine, History of ankle surgery. Medications buprenorphine, as directed, TransDermal calcium-vitamin D diclofenac sodium 75 mg Oral EC Tab, 75 mg= 1 tab(s), Oral, BID gabapentin 600 mg Tab, 600 mg= 1 tab(s), Oral, TID lisinopril 40 mg Tab, 40 mg= 1 tab(s), Oral, Daily magnesium citrate methocarbamol Prozac 40 mg Cap, 40 mg= 1 cap(s), Oral, Daily traZODONE 50 mg Tab, 50 mg= 1 tab(s), Oral, Once a day (at bedtime) Wellbutrin XL 300 mg/24 hours Tab-ER, 300 mg= 1 tab(s), Oral, Daily Allergies No Known Allergies No Known Medication Allergies Social History Alcohol - Denies Alcohol Use, 04/27/2024 Never., 06/12/2024 Substance Abuse - Denies Substance Abuse, 04/27/2024 Never., 06/12/2024 Tobacco Former smoker, quit more than 30 days ago Tobacco Use:. Never Smokeless Tobacco Use:., 06/12/2024 Family History Primary malignant neoplasm of lung: Mother. Immunizations Vaccine Date Status SARS-CoV-2 (COVID-19) mRNA-1273 vaccine 08/10/2021 Recorded SARS-CoV-2 (COVID-19) mRNA-1273 vaccine 11/20/2020 Recorded SARS-CoV-2 (COVID-19) mRNA-1273 vaccine 10/23/2020 Recorded Normal [facility] Comment on above: Result Comment: Elec tronically Signed By: CARYN QUISPE, Wilmer Merlos\daniel\Date and Time Signed: 06/12/24 20:18 EDT Laboratory - Drug toxicology on 06-11-2024 Amphetamines Ql (U) Negative [facility] Benzodiazepines Ql (U) Negative [facility] Cocaine Ql (U) Negative [facility] Opiates Ql (U) Negative [facility] Phencyclidine Ql (U) Negative [facility] No Panel Informationon 06-11 Urine Barbiturates Screen Negative [facility] Urine Marijuana (THC) Screen Negative [facility] Provider Orderson 06-06-2024 Provider Orders [id number] [facility] 06-01-2024 [facility] Telephone (NETNAV) -- ENRRIQUE MADERA ([id number]) 1965 M Date Time Provider Department 06/01/24 NO PCP NETNAV During your visit today, we recorded the following information about you: Quynh Shelby 06/01/2024 3:19 PM Signed POPUL[facility]ALTH NAVIGATION OUTREACH Action/FYI Patient Declined Reason for Outreach Care Gap/HCC or Scheduling Wellness Visits Care Gaps due: Physical Therapy Patient Contacted: Spoke to patient/parent/or legal guardian Patient identified by name and : Yes Care Gap/HCC/Scheduling Wellness actions taken: Patient declined: Patient Declines Navigation Scheduling / Outreach Navigation Signature: Quynh Shelby June 01, 2024 3:18 PM Allergies As of Date: 06/01/2024 Noted Allergy Reaction OXYCODONE 01/26/2023 16 - Unknown Comments: Other Reaction(s): addiction/former addict. Agreeable to use during acute pain episode hospitalization Date Reviewed: 04/25/2024 Reviewed by: Lisbet Kerr OCCA - Fully Assessed Prescriptions as of 06/01/2024 - Teriparatide (FORTEO) 20 mcg/dose (600mcg/2.4mL) Inject 0.08 mL subcutaneously once daily. - ALPRAZolam (XANAX) 0.25 mg tablet take 1 hour prior to mri. 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 - lisinopril (ZESTRIL) 20 mg tablet Take 1 tablet by mouth once daily. - tamsulosin (FLOMAX) 0.4 mg Take 1 capsule by mouth daily at bedtime. - omeprazole (PRILOSEC) 40 mg capsule Take 40 mg by mouth once daily as needed. - buprenorphine (BUTRANS) 15 mcg/hour patch Apply 1 Patch as directed one time a week. - buPROPion SR (WELLBUTRIN SR) 150 mg 12 hr tablet Take 150 mg by mouth two times a day. - diclofenac, EC, (VOLTAREN) 75 mg EC tablet Take 75 mg by mouth two times a day. - FLUoxetine (PROZAC) 20 mg capsule Take 40 mg by mouth once daily. - naloxone 4 mg/actuation nasal spray (NARCAN) Use 4 mg in the nose at bedtime as needed. - sildenafil (REVATIO) 20 mg tablet 2 TO 3 TABLETS, Oral, Daily, PRN: NEEDED, # 90 tab(s), 1 Refill(s), Pharmacy: [id number], TAKE 2 TO 3 TABLETS BY MOUTH ONCE DAILY NEEDED, 182.88, cm, 12/16/23 6:36:00 EDT, Height, 89.3, kg, 12/16/23 6:42:00 EDT, Weight Dosing Problem List As Of Date 06/01/2024 Noted Resolved Burst fracture of T12 vertebra (HCC) [S22.081A] 03/17/2014 Carpal tunnel syndrome of right wrist [G56.01] 01/26/2023 03/01/2024 Chondromalacia of right knee [M94.261] 09/09/2020 03/01/2024 Chronic pain [G89.29] 03/01/2024 Depressive disorder [F32.A] 03/01/2024 03/01/2024 Erectile dysfunction due to arterial insufficie*03/01/2024 03/01/2024 GERD without esophagitis [K21.9] 03/01/2024 HTN (hypertension) [I10] 03/01/2024 BRADY (obstructive sleep apnea) [G47.33] 03/19/2024 C7 cervical fracture (HCC) [S12.600A] 03/17/2014 Compression fracture of vertebral column (HCC) *03/17/2014 Low back pain [M54.50] 03/17/2014 Back pain of thoracolumbar region [M54.50, M54.*03/20/2024 Acute on chronic low back pain [M54.50, G89.29] 03/20/2024 03/23/2024 Hypokalemia [E87.6] 03/20/2024 03/23/2024 Hyponatremia [E87.1] 03/20/2024 03/23/2024 Acute on chronic back pain [M54.9, G89.29] 03/21/2024 Urinary retention [R33.9] 03/22/2024 03/23/2024 Encounter Status:Closed by QUYNH SHELBY on 06/01/24 [facility] Progress Note - Nurseon 10-0 Progress Note - Nurse Patient called off ice to request that office call his insurance company [phone] to assist with patient reimbursement from prescription for Butrans 15 in February that he paid for out of pocket. Called insurance company to inquire about patient reimbursement for this prescription. Insurance company reports patient needs to log in to his [employer] account and locate the forms center. [employer] reports patient should then pick and print the pdf that applies to his reimbursement claim. [employer] reports patient then need to fill this form out and mail it to the address listed on the form before reimbursement can be processed. Called patient to notify of the above listed information. [Electronically Signed on: 05/22/2024 14:48 EDT] Ayden Lovelace RN [Verified on: 05/22/2024 14:48 EDT] Ayden Lovelace RN [facility] Ambulatory Visit Summaryon 1 Ambulatory Visit Summary Ambulatory Visit Summary ENRRIQUE MADERA :1965 Visit Date:05/16/2024 Ambulatory Visit Instructions Your Diagnosis Reducible right inguinal hernia Your Care Team Attending Physician - CARYN QUISPE, Wilmer Merlos Primary Care Physician - Hany Olivares MD This Is Your Medications List Contact prescribing physician if questions or concerns buPROPion (Wellbutrin XL 300 mg/24 hours Tab-ER) buprenorphine calcium-vitamin D diclofenac (diclofenac sodium 75 mg Oral EC Tab) fluoxetine (Prozac 40 mg Cap) gabapentin (gabapentin 600 mg Tab) lisinopril (lisinopril 40 mg Tab) magnesium citrate methocarbamol trazodone (traZODONE 50 mg Tab) Procedures Performed Repair of right inguinal hernia (05/07/2024), CT guided kyphoplasty of fracture of lumbar spine, Decompression laminectomy of lumbar spine, History of ankle surgery. Medications What How Much When Instructions Unchanged buprenorphine as directed Transdermal Contact prescribing physician if questions or concerns Unchanged buPROPion (Wellbutrin XL 300 mg/ 24 hours Tab-ER) 1 Tablets By Mouth Every day Contact prescribing physician if questions or concerns Unchanged calcium-vitamin D Contact prescribing physician if questions or concerns Unchanged diclofenac (diclofenac sodium 75 mg Oral EC Tab) 1 Tablets By Mouth 2 times a day Contact prescribing physician if questions or concerns Unchanged fluoxetine (Prozac 40 mg Cap) 1 Capsules By Mouth Every day Contact prescribing physician if questions or concerns Unchanged gabapentin (gabapentin 600 mg Tab) 1 Tablets By Mouth 3 times a day Contact prescribing physician if questions or concerns Unchanged lisinopril (lisinopril 40 mg Tab) 1 Tablets By Mouth Every day Contact prescribing physician if questions or concerns Unchanged magnesium citrate Contact prescribing physician if questions or concerns Unchanged methocarbamol Contact prescribing physician if questions or concerns Unchanged trazodone (traZODONE 50 mg Tab) 1 Tablets By Mouth Once a day (at bedtime) Contact prescribing physician if questions or concerns Allergies No Known Allergies No Known Medication Allergies Problems Ongoing - Any problem that you are currently receiving treatment for. Hypertension Lumbar radiculopathy Osteoporosis Reducible right inguinal hernia Historical - Any problem that you are no longer receiving treatment for. Chondromalacia Patient Survey You may receive a survey via text or e-mail asking about your office visit. Please share your experience with us by completing your survey. We appreciate your feedback and thank you for choosing us for your care. Normal [facility] General Surgery Office/Clini c Noteon 05-16-2024 General Surgery Office/Clinic Note General Surgery Office/Clinic Note Chief Complaint post operative follow up HPI Staff 9 day post operative follow up post right inguinal hernia repair. Denies pain, patient takes chronic narcotic for back issues. Denies bleeding or drainage. Denies scrotal edema, minimal scrotal bruising. Bowels moving well. History of Present Illness 9 days s/p RIHR with mesh for indirect inguinal hernia; patient denies pain, no N/V or fevers; no drainage from incision; normal bms, voiding well, no strenuous activities. Review of Systems ROS - Provider Constitutional: no fever, no sweats, no weight loss. Eyes: no glasses, no blurred vision, no visual loss. ENMT: no dentures, no hoarseness, no swallowing difficulties, no hearing loss, no ear infection(s), no nose bleeds. Cardiovascular: normal blood pressure, no chest pain, regular heartbeat, no heart murmur. Respiratory: no shortness of breath, no cough, no asthma, no wheezing. Gastrointestinal: no nausea, no vomiting, no diarrhea, no constipation, no blood in stool, no change in bowel habits, no abdominal pain, no hepatitis. Genitourinary: no kidney stones, no urine infection, no dysuria. Musculoskeletal: no pain, no weakness. Skin: no changing moles, no rash, no skin lumps. Neurologic: no seizures, no epilepsy, no headache. Psychiatric: no emotional or psychiatric problem. Heme/Lymph: no bleeding problems, no anemia, no blood clots, no transfusions. Allergy/Immunologic: no swollen lymph nodes/glands, no IV drug abuse. Other: Additional ROS info: Except as noted in the above Review of Systems and in the History of Present Illness, all other systems have been reviewed and are negative or noncontributory. Physical Exam abd: incision healing well, no erythema or drainage; minimal induration, no ecchymoses or drainage. Assessment/Plan 1. Reducible right inguinal hernia (K40.90: Unilateral inguinal hernia, without obstruction or gangrene, not specified as recurrent) doing well, continue no lifting > 10 lbs for 3 weeks; f/u in 2 weeks, call sooner if problems/questions. Follow-up No qualifying data available Problem List/Past Medical History Ongoing Hypertension Lumbar radiculopathy Osteoporosis Reducible right inguinal hernia Historical Chondromalacia Procedure/Surgical History Repair of right inguinal hernia (05/07/2024), CT guided kyphoplasty of fracture of lumbar spine, Decompression laminectomy of lumbar spine, History of ankle surgery. Medications buprenorphine, as directed, TransDermal calcium-vitamin D diclofenac sodium 75 mg Oral EC Tab, 75 mg= 1 tab(s), Oral, BID gabapentin 600 mg Tab, 600 mg= 1 tab(s), Oral, TID lisinopril 40 mg Tab, 40 mg= 1 tab(s), Oral, Daily magnesium citrate methocarbamol Prozac 40 mg Cap, 40 mg= 1 cap(s), Oral, Daily traZODONE 50 mg Tab, 50 mg= 1 tab(s), Oral, Once a day (at bedtime) Wellbutrin XL 300 mg/24 hours Tab-ER, 300 mg= 1 tab(s), Oral, Daily Allergies No Known Allergies No Known Medication Allergies Social History Alcohol - Denies Alcohol Use, 04/27/2024 Substance Abuse - Denies Substance Abuse, 04/27/2024 Tobacco Former smoker, quit more than 30 days ago Tobacco Use:. Never Smokeless Tobacco Use:. Cigarettes, 0.5 per day. Started age 16.0 Years. Stopped age 29 Years., 04/27/2024 Family History Primary malignant neoplasm of lung: Mother. Immunizations Vaccine Date Status SARS-CoV-2 (COVID-19) mRNA-1273 vaccine 08/10/2021 Recorded SARS-CoV-2 (COVID-19) mRNA-1273 vaccine 11/20/2020 Recorded SARS-CoV-2 (COVID-19) mRNA-1273 vaccine 10/23/2020 Recorded Normal [facility] Comment on above: Result Comment: Elec tronically Signed By: CARYN QUISPE, Wilmer Villarreal\Date and Time Signed: 05/16/24 13:16 EDT Livan 05-15-2024 [facility] Telephone (NIQ) -- ENRRIQUE MADERA ([id number]) 1965 M Date Time Provider Department 05/15/24 ALISON BRICENO During your visit today, we recorded the following information about you: Izabella Seaman 05/15/2024 4:44 PM Signed Pt called to ask CC to fax office note to [facility] for his STD. I faxed them to number provided by phone OV 04/25 AND 05/02. Dina Bauer, RN 05/16/2024 11:11 AM Signed Noted. Allergies As of Date: 05/15/2024 Noted Allergy Reaction OXYCODONE 01/26/2023 16 - Unknown Comments: Other Reaction(s): addiction/former addict. Agreeable to use during acute pain episode hospitalization Date Reviewed: 04/25/2024 Reviewed by: Lisbet Kerr OCCA - Fully Assessed Reason for Visit: Forms/letter [5729] Prescriptions as of 05/16/2024 - Teriparatide (FORTEO) 20 mcg/dose (600mcg/2.4mL) Inject 0.08 mL subcutaneously once daily. - ALPRAZolam (XANAX) 0.25 mg tablet take 1 hour prior to mri. 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 - lisinopril (ZESTRIL) 20 mg tablet Take 1 tablet by mouth once daily. - tamsulosin (FLOMAX) 0.4 mg Take 1 capsule by mouth daily at bedtime. - omeprazole (PRILOSEC) 40 mg capsule Take 40 mg by mouth once daily as needed. - buprenorphine (BUTRANS) 15 mcg/hour patch Apply 1 Patch as directed one time a week. - buPROPion SR (WELLBUTRIN SR) 150 mg 12 hr tablet Take 150 mg by mouth two times a day. - diclofenac, EC, (VOLTAREN) 75 mg EC tablet Take 75 mg by mouth two times a day. - FLUoxetine (PROZAC) 20 mg capsule Take 40 mg by mouth once daily. - naloxone 4 mg/actuation nasal spray (NARCAN) Use 4 mg in the nose at bedtime as needed. - sildenafil (REVATIO) 20 mg tablet 2 TO 3 TABLETS, Oral, Daily, PRN: NEEDED, # 90 tab(s), 1 Refill(s), Pharmacy: [id number], TAKE 2 TO 3 TABLETS BY MOUTH ONCE DAILY NEEDED, 182.88, cm, 12/16/23 6:36:00 EDT, Height, 89.3, kg, 12/16/23 6:42:00 EDT, Weight Dosing Problem List As Of Date 05/15/2024 Noted Resolved Burst fracture of T12 vertebra (HCC) [S22.081A] 03/17/2014 Carpal tunnel syndrome of right wrist [G56.01] 01/26/2023 03/01/2024 Chondromalacia of right knee [M94.261] 09/09/2020 03/01/2024 Chronic pain [G89.29] 03/01/2024 Depressive disorder [F32.A] 03/01/2024 03/01/2024 Erectile dysfunction due to arterial insufficie*03/01/2024 03/01/2024 GERD without esophagitis [K21.9] 03/01/2024 HTN (hypertension) [I10] 03/01/2024 BRADY (obstructive sleep apnea) [G47.33] 03/19/2024 C7 cervical fracture (HCC) [S12.600A] 03/17/2014 Compression fracture of vertebral column (HCC) *03/17/2014 Low back pain [M54.50] 03/17/2014 Back pain of thoracolumbar region [M54.50, M54.*03/20/2024 Acute on chronic low back pain [M54.50, G89.29] 03/20/2024 03/23/2024 Hypokalemia [E87.6] 03/20/2024 03/23/2024 Hyponatremia [E87.1] 03/20/2024 03/23/2024 Acute on chronic back pain [M54.9, G89.29] 03/21/2024 Urinary retention [R33.9] 03/22/2024 03/23/2024 Encounter Status:Closed by DINA BAUER on 05/16/24 Normal [facility] XR pre/post mri xrayon 05-15 XR pre/post mri xray [facility] [place] [address] MRI Report Signed Patient: Enrrique Madera MR#: [id number] 15 : 1965 Acct:[id number] Age/Sex: 58 / M ADM Date: 05/15/24 Loc: Room: Type: [facility] Attending Dr: Naila Paulino MD Copies to: Naila Paulino Ordering Provider: Naila Paulino Date of Service: 05/15/24 MR/MR lumbar spine wo/w con: POST LAMINECTOMY SYNDROME ([id number]) XR/XR pre/post mri xray: POST LAMINECTOMY SYNDROME MR lumbar spine wo/w con, XR pre/post mri xray 05/15/2024 10:03 AM SIGNS AND SYMPTOMS: Low back pain radiating into right gluteal region. Right lateral hip pain with numbness and tingling. PROTOCOL: Multiplanar multisequence MR images of the lumbar spine were obtained with and without IV contrast CONTRAST: 17 mL of intravenous ProHance COMPARISON: 02/06/2024 FINDINGS: Radiographs of the lumbar spine: There is a levoconvex curvature of the lumbar spine. There is posterior decompression from L3 through L5. There is disc height loss throughout. There is a T12 compression fracture. There is 6 mm of retrolisthesis of L5 upon S1. MRI lumbar spine: There is 6 mm of retrolisthesis of L5 upon S1 similar to the prior exam. There is a remote compression deformity of the T12 vertebral body. There is moderate severe disc height loss at L3-L4. There is mild disc height loss at L4-5. There is moderate to severe disc height loss at L5-S1. There is mild type I endplate edema at L3-L4. There is Modic type II fatty endplate degenerative change at L2-L3, L4-5, L5-S1. The conus terminates at the superior endplate of the L1 vertebral body level. No epidural or paraspinous fluid collection is appreciated. There is no abnormal postcontrast enhancement. At T12-L1: Facet degenerative changes are present. There is mild bilateral neural foraminal narrowing without spinal canal narrowing. At L1-L2: There is a normal disc, central canal, and neural foramen. At L2-L3: There is a broad-based disc bulge with facet. There is mild spinal canal stenosis with moderate bilateral neural foraminal narrowing. At L3-L4: There is posterior decompression. There is a new right central and right subarticular disc extrusion with cranial migration. Disc material migrates 2.5 cm above the inferior endplate of L3. There is a broad-based disc bulge with facet hypertrophy and facet effusions. There is moderate spinal canal stenosis with severe bilateral neural foraminal narrowing and mass effect on the exiting L3 nerve roots. There is mass effect on the traversing right L4 nerve roots. This is new compared prior exam. At L4-L5: There is a broad-based disc bulge with a left central through foraminal disc protrusion. There is posterior compression. There is mild to moderate spinal canal narrowing with severe left and moderate right neural foraminal narrowing. At L5-S1: There is a circumferential disc bulge with osteophyte formation. There is facet hypertrophy. There is posterior decompression. There is moderate to severe bilateral neural foraminal narrowing. There is mild spinal canal stenosis. MR/MR lumbar spine wo/w con IMPRESSION: At L3-L4: There is posterior decompression. There is a new right central and right subarticular disc extrusion with cranial migration. Disc material migrates 2.5 cm above the inferior endplate of L3. There is a broad-based disc bulge with facet hypertrophy and facet effusions. There is moderate spinal canal stenosis with severe bilateral neural foraminal narrowing and mass effect on the exiting L3 nerve roots. There is mass effect on the traversing right L4 nerve roots. This is new compared prior exam. At L4-L5: There is a broad-based disc bulge with a left central through foraminal disc protrusion. There is posterior compression. There is mild to moderate spinal canal narrowing with severe left and moderate right neural foraminal narrowing. This is similar to the prior exam. At L5-S1: There is a circumferential disc bulge with osteophyte formation. There is facet hypertrophy. There is posterior decompression. There is moderate to severe bilateral neural foraminal narrowing. There is mild spinal canal stenosis. There is also 6 mm of retrolisthesis of L5 upon S1. There is a levoconvex curvature. Impression dictated by: Clarissa Caputo M.D.05/15/2024 4:05 PM Dictation Location: [place] [address] Transcribed By: [facility] 05/15/24 [id number] Dictated By: Clarissa Caputo II, MD 05/15/24 1540 Signed By: 05/15/24 160 [facility] 05-11-2024 [facility] Telephone (SPNMMN) -- ENRRIQUE MADERA ([id number]) 1965 M Date Time Provider Department 05/11/24 ALISON BRICENO SPNMMN During your visit today, we recorded the following information about you: Dina Bauer RN 05/11/2024 9:59 AM Signed Pt called and to give number to call [facility] [phone] (opt Provider, Auth Dept) to give verbal prior auth for the Forteo. Called [facility] at number provided. Unable to speak with anyone, requesting provider Tax ID #. Routed to provider for review. Dina Bauer RN 05/11/2024 3:54 PM Signed Called and spoke with Kristina Rivera at [facility] regarding Forteo prior authorization. Completed prior auth verbally with Kristina. Case # [id number] Need to fax following information to [facility] Cover letter with Case # Prior Auth form - Kristina states will fax to our office Office visits notes Sardar article KRISTIN Cannon Jacquelyn 05/14/2024 4:18 PM Signed Received Letter was approved. Letter is in the chart. Dina Bauer RN 05/15/2024 11:08 AM Signed Forteo has been approved by [facility]. Coverage dates 05/11/24 - 05/11/26 Provider updated Call to patient to update. No answer, left detailed message on identified VM. MC message also sent along with forteo education materials. KRISTIN Cannon Augusto T, MD 05/15/2024 5:15 PM Signed Violeta Crawley our common patient Forteo was approved and he should be getting it in the next week. Allergies As of Date: 05/11/2024 Noted Allergy Reaction OXYCODONE 01/26/2023 16 - Unknown Comments: Other Reaction(s): addiction/former addict. Agreeable to use during acute pain episode hospitalization Date Reviewed: 04/25/2024 Reviewed by: Lisbet Kerr OCCA - Fully Assessed Reason for Visit: Insurance Authorization [[id number]] Forteo [Other] Prescriptions as of 05/15/2024 - Teriparatide (FORTEO) 20 mcg/dose (600mcg/2.4mL) Inject 0.08 mL subcutaneously once daily. - ALPRAZolam (XANAX) 0.25 mg tablet take 1 hour prior to mri. 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 - lisinopril (ZESTRIL) 20 mg tablet Take 1 tablet by mouth once daily. - tamsulosin (FLOMAX) 0.4 mg Take 1 capsule by mouth daily at bedtime. - omeprazole (PRILOSEC) 40 mg capsule Take 40 mg by mouth once daily as needed. - buprenorphine (BUTRANS) 15 mcg/hour patch Apply 1 Patch as directed one time a week. - buPROPion SR (WELLBUTRIN SR) 150 mg 12 hr tablet Take 150 mg by mouth two times a day. - diclofenac, EC, (VOLTAREN) 75 mg EC tablet Take 75 mg by mouth two times a day. - FLUoxetine (PROZAC) 20 mg capsule Take 40 mg by mouth once daily. - naloxone 4 mg/actuation nasal spray (NARCAN) Use 4 mg in the nose at bedtime as needed. - sildenafil (REVATIO) 20 mg tablet 2 TO 3 TABLETS, Oral, Daily, PRN: NEEDED, # 90 tab(s), 1 Refill(s), Pharmacy: [id number], TAKE 2 TO 3 TABLETS BY MOUTH ONCE DAILY NEEDED, 182.88, cm, 12/16/23 6:36:00 EDT, Height, 89.3, kg, 12/16/23 6:42:00 EDT, Weight Dosing Problem List As Of Date 05/11/2024 Noted Resolved Burst fracture of T12 vertebra (HCC) [S22.081A] 03/17/2014 Carpal tunnel syndrome of right wrist [G56.01] 01/26/2023 03/01/2024 Chondromalacia of right knee [M94.261] 09/09/2020 03/01/2024 Chronic pain [G89.29] 03/01/2024 Depressive disorder [F32.A] 03/01/2024 03/01/2024 Erectile dysfunction due to arterial insufficie*03/01/2024 03/01/2024 GERD without esophagitis [K21.9] 03/01/2024 HTN (hypertension) [I10] 03/01/2024 BRADY (obstructive sleep apnea) [G47.33] 03/19/2024 C7 cervical fracture (HCC) [S12.600A] 03/17/2014 Compression fracture of vertebral column (HCC) *03/17/2014 Low back pain [M54.50] 03/17/2014 Back pain of thoracolumbar region [M54.50, M54.*03/20/2024 Acute on chronic low back pain [M54.50, G89.29] 03/20/2024 03/23/2024 Hypokalemia [E87.6] 03/20/2024 03/23/2024 Hyponatremia [E87.1] 03/20/2024 03/23/2024 Acute on chronic back pain [M54.9, G89.29] 03/21/2024 Urinary retention [R33.9] 03/22/2024 03/23/2024 Encounter Status:Closed by DINA BAUER on 05/11/24 [facility] Surgical Pathology Reporton 05-10-2024 Surgical Pathology Report [address] [address]- Surgical Pathology Report Collected Date/Time: 05/07/2024 08:48 EDT Pathologist: Adriel Julien MD Received Date/Time: 05/07/2024 10:31 EDT CARYN QUISPE, Wilmer RUBIN MD, Wilmer Benjamin Surgical Pathology Report - 05/10/2024 13:24 EDT - Auth (Verified) Final Diagnosis RIGHT INGUINAL HERNIA SAC WITH CORD LIPOMA, EXCISION: - Hernia sac and cord lipoma. (Electronic Signature) Yan. Anaya MD 05/10/2024 13:24 Clinical Information Pre-Op Diagnosis: Inguinal hernia right Procedure: Right inguinal hernia repair Post-Op Diagnosis: Indirect right inguinal hernia and cord lipoma Specimen(s) Received Right inguinal hernia sac w/ lipoma of the cord Gross Description Received in formalin labeled with patient name, number, and right inguinal hernia sac with lipoma of the cord are two fragments of krishna/pink, wrinkled, membranous fibroadipose tissue together measuring 5.4 x 3.5 x 1.2 cm. The smaller piece is krishna/pink and membranous measuring 2.2 x 1.5 x 1.2 cm. The larger piece is krishna/pink and fatty measuring 5.5 x 2.3 x 1.2 cm. Each piece is serially sectioned and contains krishna/pink membranous tissue and light yellow lobulated adipose tissue. Hedge Fund Principal sections are submitted in three cassettes: 1: Membranous tissue 2-3: Lobulated adipose tissue (DC) DC:MCA Microscopic Description Microscopic examination performed unless gross only specified. [facility] Comment on above: Performed By: #### [id number] #### [facility] [address] [place] [address] Main OR Intraoperative Recor don 05-08-2024 Main OR Intraoperative Record Main OR Intraoperative Record IntraOp Document Type FT Summary Primary Physician: Wilmer RUBIN MD Finalized Date/Time: 05/08/24 13:03:51 Pt. Name: ENRRIQUE MADERA/Sex: 1965 Male Med Rec #: [id number] Physician: Wilmer RUBIN MD Financial #: [id number] Pt. Type: A Room/Bed: [place] [address] Admit/Disch: 05/07/24 05:58:52 - 05/07/24 11:12:00 Institution: Case Times FT Entry 1 Patient Times In Room 05/07/24 08:02:00 Out Room 05/07/24 09:22:00 Procedure Times Start 05/07/24 08:26:00 Stop 05/07/24 09:17:00 Anesthesia Times Start 05/07/24 08:02:00 Stop 05/07/24 09:22:00 Block Timeout w/ 05/07/24 08:16:00 Anesthesia Last Modified By: Phuc Degroot Ii 05/07/24 09:24:43 General Comments: RIGHT TAP BLOCK DONE BY DR. ERWIN. /KRISTIN GRIMES 05/08/24 Chart opened to review and send charges [facility] CSFA Case Attendance FT Entry 1 Entry 2 Entry 3 Case Attendee Juno Haile MD, Kellen Carrasco Role Performed Anesthesiologist Surgeon - Primary APPEALS ASSISTANT Dental Appliance Mechanic Time In 05/07/24 08:02:00 05/07/24 08:02:00 05/07/24 08:02:00 Time Out 05/07/24 09:22:00 05/07/24 09:22:00 05/07/24 09:22:00 Procedure INGUINAL HERNIA REPAIR INGUINAL HERNIA REPAIR INGUINAL HERNIA REPAIR ADULT(Right) ADULT(Right) ADULT(Right) Comments DR. ERWIN AUTO CLAIM REPRESENTATIVE ASSIST Last Modified By: Phuc Degroot Ii, Alfons Ii F Letrondo, Alfons Ii F 05/07/24 09:24:45 05/07/24 09:24:45 05/07/24 09:24:45 Entry 4 Entry 5 Case Attendee Aruna Moore Alfons Ii F Role Performed Scrub - Primary Garde Manager - Primary Time In 05/07/24 08:02:00 05/07/24 08:02:00 Time Out 05/07/24 09:22:00 05/07/24 09:22:00 Procedure INGUINAL HERNIA REPAIR INGUINAL HERNIA REPAIR ADULT(Right) ADULT(Right) Comments Last Modified By: Phuc Degroot Ii, Alfons Ii Monet 05/07/24 09:24:45 05/07/24 09:24:45 General Comments: ELANA HATFIELD A STUDENT IS IN ATTENDANCE. /KRISTIN GRIMESoral and maxillofacial surgeon Protocols FT Pre-Care Text: Implements protective measures prior to operative or invasive procedure, confirms identity before the operative or invasive procedure, verifies operative procedure, surgical site, and laterality Entry 1 Procedure(s) INGUINAL HERNIA REPAIR Patient Identity Birthday, ID Band ADULT(Right) Verified (select at Check, Patient least 2): Participation Consents / H and P Anesthesia Consent, Operative Site Present Verified H&P, Surgery/Procedure Marking Verified Consent Surgical Site Yes Laterality Verified Yes Verified Procedure Verified Yes Correct Patient Yes Position Verified Availability Equipment, Implant, Prep Dry Yes Verified (If Medication Applicable) PreOp Antibiotic Yes Time Out Aruna Moore, Given Participants Phuc Degroot Ii, Gower CAA, John C., NILL MD, Danielle Matute Amber M Time Out Complete 05/07/24 08:26:00 Outcomes Met? Yes Last Modified By: Phuc Degroot Ii 05/07/24 08:30:41 Post-Care Text: The patient is free from signs and symptoms of injury caused by extraneous objects Allergy Information FT Pre-Care Text: Verifies allergies Entry 1 Allergies Reviewed? Yes Allergies Reviewed Self/Patient With Outcomes Met? Yes Last Modified By: Phuc Degroot Ii 05/07/24 08:30:48 Post-Care Text: The patient received appropriate medication(s) safely administered during the perioperative period Surgical Procedures FT Entry 1 Procedure Description Procedure INGUINAL HERNIA REPAIR Modifiers Right ADULT Surgeon Description RIGHT INGUINAL HERNIA REPAIR WITH MESH Primary Procedure Yes Primary Surgeon CARYN QUISPE, Wilmer Merlos Start 05/07/24 08:26:00 Stop 05/07/24 09:17:00 Anesthesia Type General Surgical Service General Wound Class 1 - Clean Last Modified By: Phuc Degroot Ii 05/07/24 09:24:47 General Case Data FT Pre-Care Text: Classifies surgical wound, implements aseptic technique, initiates traffic control Entry 1 Case Information OR OR 2 FT Case Level Level 4 Wound Class 1 - Clean Specialty General ASA Class 2 Preop Diagnosis INGUINAL HERNIA RIGHT Postop Same As Preop Yes Postop Diagnosis INGUINAL HERNIA RIGHT Outcomes Met? Yes Last Modified By: Lauren Ellis CST 05/08/24 13:00:32 Post-Care Text: The patient is free from signs and symptoms of infection Skin Assessment (Pre Procedure) FT Pre-Care Text: Implements protective measures to prevent skin/ tissue injury due to thermal or mechanical sources Evaluates for signs and symptoms of physical injury to skin and tissue Entry 1 Skin Integrity Intact, [place], Warm, & Skin Abnormality No Dry Outcomes Met? Yes Last Modified By: Phuc Degroot Ii 05/07/24 08:31:10 Post-Care Text: The patient is free from signs and symptoms of injury caused by extraneous objects Patient Positioning FT Pre-Care Text: Identifies physical alterations that require additional precautions for procedur (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 [facility] XR Chest 2 Viewson XR Chest 2 Views Exam Date/Time: 05/03/2024 15:13 EDT Reason for Exam: P.A.T. Report IMPRESSION: NO EVIDENCE OF ACTIVE CHEST DISEASE. CLINICAL HISTORY: P.A.T.. COMMENT: The heart is normal in size. There is tortuosity of the descending thoracic aorta. The mediastinum is otherwise unremarkable. The lungs appear clear. No infiltration nor pleural effusion is evident. There are mild anterior wedgings of lower thoracic vertebral bodies, that appear to be chronic. Ordering Provider: Enrrique Wick FINAL REPORT Dictated: 05/08/2024 8:32 am Blake Hussein M.D. Signed (Electronic Signature): 05/08/2024 8:32 am Signed by: Blake Hussein M.D. Transcribed by: JASPER Technologist: ANTONIA Technical Comments Radiation Dose: janiya Shelton in mGy = 0 DAP = 0 [facility] Discharge Instructionson Discharge Instructions Discharge Instructions ENRRIQUE MADERA :1965 Visit Date:05/07/2024 Inpatient Discharge Instructions Your Care Team Admitting Physician - Wilmer RUBIN MD Referring Physician - Wilmer RUBIN MD Reason for Your Visit INGUINAL HERNIA Your Diagnosis Acute postoperative pain of groin Indirect right inguinal hernia Other acute postprocedural pain Tests Performed Pathology Tissue Exam -- Results Pending -- Please visit your patient portal for your results or contact your primary care physician. This Is Your Medications List acetaminophen-oxycodone (acetaminophen-oxycodone 325 mg-5 mg Tab) buPROPion (Wellbutrin XL 300 mg/24 hours Tab-ER) buprenorphine calcium-vitamin D diclofenac (diclofenac sodium 75 mg Oral EC Tab) fluoxetine (Prozac 40 mg Cap) gabapentin (gabapentin 600 mg Tab) lisinopril (lisinopril 40 mg Tab) magnesium citrate methocarbamol trazodone (traZODONE 50 mg Tab) Procedure History CT guided kyphoplasty of fracture of lumbar spine, Decompression laminectomy of lumbar spine, History of ankle surgery. What to do next Instructions From Your Doctor Event Name Event Result Discharge Instructions Freetext may shower tomorrow, remove dressing and leave incision open to air; no tub baths or swimming for 10 days; no lifting > 10 lbs for 4 weeks; no driving while taking the Percocet; take Diclofenac scheduled for first week after surgery Discharge Activity Arrange for a responsible adult supervision for 24 hours Discharge Restrictions No driving, Do not operate machinery or tools, Do not make important decisions for 24 hours, Do not drink alcoholic beverages for 24 hours Discharge Diet(s) Regular Call Your Doctor For Persistent or heavy bleeding, Temperature above 101.5 degrees, Redness, swelling, or pus at operative site, Severe pain at the operative site, Persistent vomiting Wound Care Keep incision dry, Remove dressing as instructed Remove Dressing On 1 Discharge Instructions Discharge Instructions New Follow Up Appointments after Discharge Follow Up with Wilmer RUBIN When: Within 7 to 10 days Where: [facility] [address], [address] [address]- Business (1) Medications What How Much When Why Instructions Next Dose New acetaminophen-oxycodone (acetaminophen-oxycodone 325 mg-5 mg Tab) 1 Tablets By Mouth Every 6 hours as needed for Pain Acute postoperative pain of groin take with food or milk not to exceed 4000 mg acetaminophen per day Pickup at [facility] Unchanged buprenorphine as directed Transdermal Unchanged buPROPion (Wellbutrin XL 300 mg/ 24 hours Tab-ER) 1 Tablets By Mouth Every day Unchanged calcium-vitamin D Unchanged diclofenac (diclofenac sodium 75 mg Oral EC Tab) 1 Tablets By Mouth 2 times a day Unchanged fluoxetine (Prozac 40 mg Cap) 1 Capsules By Mouth Every day Unchanged gabapentin (gabapentin 600 mg Tab) 1 Tablets By Mouth 3 times a day Unchanged lisinopril (lisinopril 40 mg Tab) 1 Tablets By Mouth Every day Unchanged magnesium citrate Unchanged methocarbamol Unchanged trazodone (traZODONE 50 mg Tab) 1 Tablets By Mouth Once a day (at bedtime) Pharmacy Information [facility]: [address] [place], [place] [phone] Test Results No qualifying data available. Allergies No Known Allergies No Known Medication Allergies Problems Ongoing - Any problem that you are currently receiving treatment for. Hypertension Lumbar radiculopathy Osteoporosis Reducible right inguinal hernia Historical - Any problem that you are no longer receiving treatment for. Chondromalacia Devices Implanted/Removed This Visit Notice: You have devices implanted this visit that may not be MRI compatible. Implanted INGUINAL HERNIA REPAIR ADULT Other MESH PLUG SURGIPRO LAREG CLEAR HERNIA-MATE [[id number]] 05/07/2024, Unknown - SHELLEY: [id number] Education Materials Laparoscopic Inguinal Hernia Repair, Adult, Care After The following information offers guidance on how to care for yourself after your procedure. Your health care provider may also give you more specific instructions. If you have problems or questions, contact your health care provider. What can I expect after the procedure? After the procedure, it is common to have: ? Pain. ? Swelling and bruising around the incision area. ? Scrotal swelling, in males. ? Some fluid or blood draining from your incisions. Follow these instructions at home: Medicines ? Take [id number] and prescription medicines only as told by your health care provider. ? Ask your health care provider if the medicine prescribed to you: ? Requires you to avoid driving or using machinery. ? Can cause constipation. You may need to take these actions to prevent or treat constipation: ? Drink enough fluid to keep your urine pale yellow. ? Take over- (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 [facility] Comment on above: Result Comment: Elec tronically Signed By: Inocencio FOSTER, Yamileth Diez\.br\Date and Time Signed: 05/07/24 09:52 EDT Inpatient Patient Summaryon 05-07-2024 Inpatient Patient Summary Inpatient Patient Summary [address] [address] [facility] Clinical Discharge Instructions PERSON INFORMATION Name: ENRRIQUE MADERA [facility]#:[id number] PHYSICIANS Admitting Physician: Wilmer RUBIN MD Attending Physician: Wilmer RUBIN MD PCP: Mag QUISPE, Hany Discharge Diagnosis: Indirect right inguinal hernia; Other acute postprocedural pain Comment: PATIENT EDUCATION INFORMATION Instructions: Medication Leaflets: Follow up: With: Address: When: Wilmer RUBIN [address] [place] [address], [facility] [address], [place] [id number] Business (1) Within 7 to 10 days MEDICATION LIST New Medications [facility], [address] [place], [place] [id number], [phone] acetaminophen-oxycodone (acetaminophen-oxycodone 325 mg-5 mg Tab) 1 Tablets By Mouth every 6 hours as needed Pain. take with food or milk not to exceed 4000 mg acetaminophen per day. Refills: 0. Medications to Continue with No Changes Other Medications buprenorphine as directed Transdermal. buPROPion (Wellbutrin XL 300 mg/24 hours Tab-ER) 1 Tablets By Mouth every day. calcium-vitamin D diclofenac (diclofenac sodium 75 mg Oral EC Tab) 1 Tablets By Mouth 2 times a day. fluoxetine (Prozac 40 mg Cap) 1 Capsules By Mouth every day. gabapentin (gabapentin 600 mg Tab) 1 Tablets By Mouth 3 times a day. lisinopril (lisinopril 40 mg Tab) 1 Tablets By Mouth every day. magnesium citrate methocarbamol trazodone (traZODONE 50 mg Tab) 1 Tablets By Mouth once a day (at bedtime). Comment: [facility] Main OR PACU I Recordon 04-16 Main OR PACU I Record Main OR PACU I Rec ord PACU Phase I Document Type FT Summary Primary Physician: Wilmer RUBIN MD Finalized Date/Time: 05/07/24 10:28:09 Pt. Name: ZHOUENRRIQUE/Sex: 1965 Male Med Rec #: [id number] Physician: Wilmer RUBIN MD Financial #: [id number] Pt. Type: A Room/Bed: [place] [address] Admit/Disch: 05/07/24 05:58:52 - Institution: Case Times PACU I FT Pre-Care Text: Identifies barriers to communication and implements measures to provide psychological support Develops individualized plan of care, and ensures continuity of care Maintains patient's dignity and privacy, and maintains patient confidentiality Identifies and reports philosophical, cultural, and spiritual beliefs and values Identifies individual values and wishes concerning care Implements aseptic technique, and administers prescribed antibiotic therapy and immunizing agents as ordered Evaluates postoperative tissue perfusion Implements thermoregulation measures, and monitors body temperature Evaluates postoperative respiratory status Evaluates postoperative cardiac status Evaluates postoperative neurological status Assesses pain control, collaborated in initiating patient-controlled analgesia and implements alternative methods of pain control Verifies allergies, administers prescribed medications and solutions, evaluates response to medications Entry 1 In PACU I 05/07/24 09:22:00 Discharge from PACU 05/07/24 09:52:00 I Outcomes Met? Yes Last Modified By: Estelita Flores RN 05/07/24 10:27:29 Post-Care Text: The patient demonstrates knowledge of the expected response to the operative or invasive procedure The patient's care is consistent with the individualized perioperative plan of care The patient's right to privacy is maintained The patient's value system, lifestyle, ethnicity, and culture are considered, respected, and incorporated into the perioperative plan of care The patient participates in decisions affecting his or her perioperative plan of care The patient is free from signs and symptoms of infection The patient has wound/tissue perfusion consistent with or improved from baseline levels established preoperatively The patient is at or returning to normothermia at the conclusion of the immediate postoperative period The patient's respiratory function is consistent with or improved from baseline levels established preoperatively The patient's cardiovascular status is consistent with or improved from baseline levels established preoperatively The patient's cardiovascular status is consistent with or improved from baseline levels established preoperatively The patient demonstrates and/or reports adequate pain control throughout the perioperative period The patient received appropriate medication(s), safely administered during the perioperative period Acuity Level PACU I FT Entry 1 Start Time 05/07/24 09:22:00 Stop Time 05/07/24 09:52:00 Acuity Level Acuity Level I Last Modified By: Estelita Flores RN 05/07/24 10:27:38 Finalized By: Estelita Flores RN Document Signatures Signed By: Estelita Flores RN 05/07/24 10:27 Estelita Flores RN 05/07/24 10:28 [facility] Main OR PACU II Recordon Main OR PACU II Record Main OR PACU II Record PACU Phase II Document Type FT Summary Primary Physician: Wilmer RUBIN MD Finalized Date/Time: 05/07/24 11:12:51 Pt. Name: ENRRIQUE MADERA/Sex: 1965 Male Med Rec #: [id number] Physician: Wilmer RUBIN MD Financial #: [id number] Pt. Type: A Room/Bed: [facility] Admit/Disch: 05/07/24 05:58:52 - Institution: Case Times PACU II FT Pre-Care Text: Identifies barriers to communication and implements measures to provide psychological support and determines knowledge level Develops individualized plan of care, and ensures continuity of care Maintains patient's dignity and privacy, and maintains patient confidentiality Identifies and reports philosophical, cultural, and spiritual beliefs and values Identifies individual values and wishes concerning care administers prescribed antibiotic therapy and immunizing agents as ordered, Evaluates postoperative tissue perfusion Implements thermoregulation measures, and monitors body temperature Evaluates postoperative respiratory status Evaluates postoperative cardiac status Evaluates postoperative neurological status Assesses pain control, collaborated in initiating patient-controlled analgesia and implements alternative methods of pain control Verifies allergies, administers prescribed medications and solutions, evaluates response to medications Entry 1 In PACU II 05/07/24 09:52:00 Discharge from PACU 05/07/24 11:12:00 II Outcomes Met? Yes Last Modified By: Yamileth Painter RN 05/07/24 11:12:50 Post-Care Text: The patient demonstrates knowledge of the expected response to the operative or invasive procedure The patient's care is consistent with the individualized perioperative plan of care The patient's right to privacy is maintained The patient's value system, lifestyle, ethnicity, and culture are considered, respected, and incorporated into the perioperative plan of care The patient participates in decisions affecting his or her perioperative plan of care. The patient is free from signs and symptoms of infection The patient has wound/tissue perfusion consistent with or improved from baseline levels established preoperatively The patient is at or returning to normothermia at the conclusion of the immediate postoperative period The patient's respiratory function is consistent with or improved from baseline levels established preoperatively The patient's cardiovascular status is consistent with or improved from baseline levels established preoperatively The patient's neurological status is consistent with or improved from baseline levels established preoperatively The patient demonstrates and/or reports adequate pain control throughout the perioperative period The patient received appropriate medication(s), safely administered during the perioperative period Finalized By: Yamileth Painter RN Document Signatures Signed By: Yamileth Painter RN 05/07/24 11:12 [facility] Main OR Preoperative Recordo n 05-07-2024 Main OR Preoperative Record Main OR Preoperative Record PreOp Document Type FT Summary Primary Physician: Wilmer RUBIN MD Finalized Date/Time: 05/07/24 08:57:29 Pt. Name: ZHOU ENRRIQUE Carter./Sex: 1965 Male Med Rec #: [id number] Physician: Wilmer RUBIN MD Financial #: [id number] Pt. Type: A Room/Bed: [facility] Admit/Disch: 05/07/24 05:58:52 - Institution: Case Times PreOp FT Pre-Care Text: Verifies consent for planned procedure, identifies individual values and wishes concerning care, includes family members in perioperative teaching Entry 1 Patient Times. In Pre Surgery 05/07/24 06:05:00 Out Pre Surgery 05/07/24 08:00:00 Outcomes Met? Yes Last Modified By: Phuc Degroot Ii 05/07/24 08:57:28 Post-Care Text: The patient participates in decisions affecting his or her perioperative plan of care Finalized By: Phuc Degroot Ii Document Signatures Signed By: Phuc Degroot Ii 05/07/24 08:57 [facility] Operative Reporton Operative Report Operative Report SURGERY DATE: 05/07/2024 PREOPERATIVE DIAGNOSIS: Right inguinal hernia POSTOPERATIVE DIAGNOSIS: Indirect right inguinal hernia and cord lipoma OPERATION: Right inguinal herniorrhaphy with Covidien large patch insertion ANESTHESIA: General with laryngeal mask airway as well as right-sided transversus abdominis plane block ANESTHESIOLOGIST: Enrrique Erwin M.D. ESTIMATED BLOOD LOSS: Less than 10 mL INDICATIONS AND CONSENT: The patient is a 58-year-old male with a history of a symptomatic reducible right inguinal hernia. Indications, risks, benefits, and alternatives of proceeding with herniorrhaphy were explained extensively to the patient including risks of bleeding, infection, scarring, pain, nerve injury, testicular injury, blood clot, pulmonary embolus, heart attack, anesthetic complications, need for further surgery or mesh removal. All of his questions were answered and informed consent was obtained. PROCEDURE: The patient was brought to the Operating Room and placed in the supine position. General anesthesia was induced. A right-sided transversus abdominis plane block was performed. The patient was prepped and draped in the usual sterile fashion. Right groin incision was made in the area of the skin crease and carried down through subcutaneous tissue using sharp dissection as well as electrocautery. Alia fascia was divided. The attenuated external oblique was opened along the direction of its fibers down to the external inguinal ring. Cord structures were mobilized and retracted with a Alberto drain. Cremasteric fibers were divided. An indirect hernia sac as well as a cord lipoma was identified and freed up from the cord structures all the way up to the internal ring. The vas deferens was off of the hernia sac. The hernia sac was opened and found to be empty. High ligation was performed with a 3-0 Vicryl suture. The cord lipoma was excised as well as ligating with a 3-0 Vicryl tie. The wound was irrigated with antibiotic saline. There was good hemostasis. The floor was intact with no evidence of direct hernia. The Covidien patch was then placed in the floor of the inguinal canal. The arms were placed around the cord structures. It was then secured circumferentially using interrupted 3-0 Vicryl sutures. Care was taken to avoid undue tension on the cord structures and avoid any suture injury to the nerve. The wound was irrigated once again with antibiotic saline. There was good hemostasis noted. The external oblique was then closed with a running 3-0 Vicryl suture. The subcutaneous tissues were infiltrated with the remaining Exparel solution. Alia fascia was reapproximated using interrupted 3-0 Monocryl suture. Skin was then closed with a running 4-0 subcuticular Monocryl suture and skin glue. A sterile pressure dressing was applied. Sponge and needle counts were correct x2 per nursing personnel. The patient tolerated the procedure well and was sent to Recovery Room in good condition. Wilmer Rubin M.D. [facility] Dictated: 05/07/2024 [id number] Transcribed: 05/07/2024 cc: [facility] Comment on above: Result Comment: Elec tronically Signed By: CARYN QUISPE, Wilmer Merlos\daniel\Date and Time Signed: 05/07/24 15:34 EDT Outpatient Surgery Discharge Instructionon 05-07-2024 Outpatient Surgery Discharge Instruction Outpatient Surgery Discharge Instruction [place] [id number] Patient Discharge Instructions PERSON INFORMATION Name: ENRRIQUE MADERA Date of : 1965 Current Date: 05/07/2024 09:30:03 PHYSICIANS Admitting Physician: Wilmer RUBIN MD Discharge Diagnosis: Indirect right inguinal hernia; Other acute postprocedural pain ENRRIQUE MADERA has been given the following list of follow-up instructions, prescriptions, and patient education materials: PATIENT FOLLOW-UP INFORMATION Diet: Regular Discharge Activity: Arrange for a responsible adult supervision for 24 hours Discharge Restrictions: No driving, Do not operate machinery or tools, Do not make important decisions for 24 hours, Do not drink alcoholic beverages for 24 hours Call Your Doctor For: Persistent or heavy bleeding, Temperature above 101.5 degrees, Redness, swelling, or pus at operative site, Severe pain at the operative site, Persistent vomiting Wound Care Instructions: Keep incision dry, Remove dressing as instructed Remove Your Dressing In 1 Days Additional Instructions: may shower tomorrow, remove dressing and leave incision open to air; no tub baths or swimming for 10 days; no lifting > 10 lbs for 4 weeks; no driving while taking the Percocet; take Diclofenac scheduled for first week after surgery IF UNABLE TO CONTACT YOUR PHYSICIAN AND YOU FEEL IT IS AN EMERGENCY, GO TO THE NEAREST EMERGENCY ROOM OR CALL 911 ZHOU Rivera JAMES A, have received the attached patient education materials/instructions and have verbalized understanding: May we do a follow up call? Yes No I was present when discharge instructions were given ____ Patient Signature _ Date Clinican/Nurse Signature Date Follow up: With: Address: When: [address], [address], [place] [id number] [facility] (1) Within 7 to 10 days Pharmacy Information: You may receive a survey from [employer] asking you to rate your care experience. Your feedback is important and will help us understand what we do well and how we can improve the quality of care we provide to you, your loved ones and our community. It?s an honor to serve you. Thank you for choosing [facility] HERE ARE THE MEDICATION CHANGES THAT OCCURRED DURING YOUR HOSPITAL STAY New Medications [facility], [place] [id number], [phone] acetaminophen-oxycodone (acetaminophen-oxycodone 325 mg-5 mg Tab) 1 Tablets By Mouth every 6 hours as needed Pain. take with food or milk not to exceed 4000 mg acetaminophen per day. Refills: 0. Medications to Continue with No Changes Other Medications buprenorphine as directed Transdermal. buPROPion (Wellbutrin XL 300 mg/24 hours Tab-ER) 1 Tablets By Mouth every day. calcium-vitamin D diclofenac (diclofenac sodium 75 mg Oral EC Tab) 1 Tablets By Mouth 2 times a day. fluoxetine (Prozac 40 mg Cap) 1 Capsules By Mouth every day. gabapentin (gabapentin 600 mg Tab) 1 Tablets By Mouth 3 times a day. lisinopril (lisinopril 40 mg Tab) 1 Tablets By Mouth every day. magnesium citrate methocarbamol trazodone (traZODONE 50 mg Tab) 1 Tablets By Mouth once a day (at bedtime). PATIENT EDUCATION INFORMATION Instructions: Medication Leaflets: Normal [facility] Proceduralon 05-07-2024 Procedural Procedural Patient: ENRRIQUE MADERA Age: 58 years Sex: Male : 1965 Associated Diagnoses: None Author: Enrrique Erwin MD Procedure Nerve Block Block Type: TAP block. Laterality: Right. Informed consent for anesthesia management: Anesthesia options discussed including nerve block, Description of the procedure, risks, benefits, and alternatives was provided, The patient's questions were addressed. Time out: Confirmed correct patient, procedure and site. Time: Date/Time 05/07/2024 08:10:00. Indication: Block for postoperative pain management as requested by surgeon. Anesthesia Method: after induction for general anesthesia. Preparation: The patient was placed in the following position Supine, Continuous pulse oximetry applied, Using maximal sterile barrier technique per current [facility] guidelines including hand hygeine, Guidance (Ultrasound used to identify anatomical landmarks, Using sterile gel and probe covers, Permanent image retained), The site was prepped with ChloraPrep. Procedure: Anesthetic Agent 21g 100mm insulated echogenic block needle with US; 213 mg exparel and 60 mg bupivicaine in 40cc in increments post negative aspiration;needle tip visualized throughout, Needle was inserted without pain or parasthesia in the conscious patient, Number of attempts 1, Negative attempt at aspiration for blood, Medial and lateral spread of the anesthestic was observed, Periodic negative attempts at aspiration of blood were made as the local was injected, It was idetified that the correct anesthetic agent was administered to the correct site. Complications: None, The patient tolerated the procedure as expected. [facility] Procedural Procedural Patient: ENRRIQUE MADERA Age: 58 years Sex: Male : 1965 Associated Diagnoses: None Author: Enrrique Erwin MD Preoperative Information Anesthesia Preop Info: Time patient last ate or drank 05/07/2024 00:00:00. Anesthesia history: Patient history: None. Family history+: None. Informed consent: Signed by patient. Re-evaluation prior to induction: Initial evaluation reviewed: No significant change. Review of Systems Eye Ear/Nose/Mouth/Throat Respiratory: No shortness of breath, No cough. Cardiovascular: Negative, No chest pain. Gastrointestinal: No heartburn. Musculoskeletal Neurologic Health Status Allergies: Allergic Reactions (Selected) No Known Allergies No Known Medication Allergies, Allergies (2) Active Severity Reaction No Known Allergies None Documented No Known Medication Allergies None Documented Current medications: (Selected) Inpatient Medications Ordered HYDROmorphone 1 mg/mL injectable solution: 0.2 mg = 0.2 mL, Injection, IV Push, q2min PRN Pain for 10 dose(s), Stop date Limited # of times, Routine, Start date 05/07/24 9:00:00 EDT, 05/07/24 9:00:00 EDT Lactated Ringers IV Liseth 1000 mL 1,000 mL: 1,000 mL, IV, 100 mL/hr, Routine, Start date 05/07/24 9:00:00 EDT, 10 hour(s), Total volume (mL): 1,000, 86.1 kg, 2.08, m2 Lactated Ringers IV Liseth 1000 mL 1,000 mL: 1,000 mL, IV, 150 mL/hr, Routine, Start date 05/07/24 6:00:00 EDT, 6.7 hour(s), Total volume (mL): 1,000, 86.1 kg, 2.08, m2 promethazine additive 12.5 mg + Sodium Chloride 0.9% IV Liseth 50 mL (INT) 50 mL: IV Piggyback, Once PRN Nausea/Vomiting, Routine, Start date 05/07/24 9:00:00 EDT, 151.5 mL/hr, Infuse over 20 minute(s), 05/07/24 9:00:00 EDT Documented Medications Documented Prozac 40 mg Cap: 40 mg = 1 cap(s), Oral, Daily, Refills(s) 0 Wellbutrin XL 300 mg/24 hours Tab-ER: 300 mg = 1 tab(s), Oral, Daily, Refills(s) 0 buprenorphine: as directed, TransDermal, Refills(s) 0, Pain calcium-vitamin D: Refill(s) 0 diclofenac sodium 75 mg Oral EC Tab: 75 mg = 1 tab(s), Oral, BID, Refills(s) 0 gabapentin 600 mg Tab: 600 mg = 1 tab(s), Oral, TID, Refills(s) 0 lisinopril 40 mg Tab: 40 mg = 1 tab(s), Oral, Daily, Refills(s) 0 magnesium citrate: Refill(s) 0 methocarbamol: Refills(s) 0 traZODONE 50 mg Tab: 50 mg = 1 tab(s), Oral, Once a day (at bedtime), Refills(s) 0, Home Medications (10) Active buprenorphine as directed, TransDermal calcium-vitamin D diclofenac sodium 75 mg Oral EC Tab 75 mg = 1 tab(s), Oral, BID gabapentin 600 mg Tab 600 mg = 1 tab(s), Oral, TID lisinopril 40 mg Tab 40 mg = 1 tab(s), Oral, Daily magnesium citrate methocarbamol Prozac 40 mg Cap 40 mg = 1 cap(s), Oral, Daily traZODONE 50 mg Tab 50 mg = 1 tab(s), Oral, Once a day (at bedtime) Wellbutrin XL 300 mg/24 hours Tab-ER 300 mg = 1 tab(s), Oral, Daily , Medications (4) Active Scheduled: (0) Continuous: (2) Lactated Ringers 1,000 mL 1,000 mL, IV, 150 mL/hr Lactated Ringers 1,000 mL 1,000 mL, IV, 100 mL/hr PRN: (2) HYDROmorphone 1 mg/mL SOLN [F] 0.2 mg 0.2 mL, IV Push, q2min promethazine 12.5 mg + Sodium Chloride 0.9% 50 mL 12.5 mg 0.5 mL, IV Piggyback, Once Problem list: All Problems Hypertension / SNOMED CT 6100571534 / Confirmed Lumbar radiculopathy / SNOMED CT 564144681 / Confirmed Osteoporosis / SNOMED CT 281416425 / Confirmed Reducible right inguinal hernia / SNOMED CT 231551786 / Confirmed Resolved: Chondromalacia / SNOMED CT 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 Resolved. Comments: 04/25/2024 EDT 9:52 EMILEET - Tosin Agustin LPN Outside Source Comment: Overview: Added automatically from request for surgery [id number] Family History: Primary malignant neoplasm of lung Mother Procedure history: Decompression laminectomy of lumbar spine x2 (6006332617). History of ankle surgery (8557750792). kyphoplasty of fracture of lumbar spine (8765862347). Social History Social & Psychosocial Habits Alcohol 05/07/2024 Risk Assessment: Denies Alcohol Use Substance Abuse 05/07/2024 Risk Assessment: Denies Substance Abuse Tobacco 05/07/2024 Tobacco Use: Former smoker, quit more Smokeless tobacco use: Never Type: Cigarettes Tobacco use per day: 0.5 Started at age: 16.0 Years Stopped at age: 29 Years . Physical Examination Vital Signs 05/07/2024 6:14 EDT Heart Rate Monitored 80 bpm Systolic Blood (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 Normal [facility] BMPon 05-03-2024 Anion gap [Moles/Vol] 5 mmol/L Low 6-[address] [facility] Comment on above: Performed By: #### 2 [id number] #### [facility] [address] [place] [address] Calcium [Mass/Vol] 8.8 mg/dL Low 8.9-11.1 [facility] Comment on above: Performed By: #### 2 [id number] #### [facility] [address] [place] [address] Chloride [Moles/Vol] 104 mmol/L Normal 101-111 [facility] Comment on above: Performed By: #### 2 [id number] #### [facility] [address] [place] [address] CO2 [Moles/Vol] 32 mmol/L High 21-31 [facility] Comment on above: Performed By: #### 2 284242 #### [facility] [address] [place] [address] Creatinine [Mass/Vol] 0.8 mg/dL Normal 0.5-1.[address] [facility] Comment on above: Performed By: #### 2 549178 #### [facility] [address] [place] [address] Glucose [Mass/Vol] 90 mg/dL Normal 55-199 [facility] Comment on above: Performed By: #### 2 [id number] #### [facility] [address] [place] [address] Potassium [Moles/Vol] 4.2 mmol/L Normal 3.5-5.[address] [facility] Comment on above: Performed By: #### 2 792386 #### [facility] [address] [place] [address] Sodium [Moles/Vol] 137 mmol/L Normal 135-145 [facility] Comment on above: Performed By: #### 2 295966 #### [facility] [address] [place] [address] Urea nitrogen [Mass/Vol] 10 mg/dL Normal 5-21 [facility] Comment on above: Performed By: #### 2 [id number] #### [facility] [address] [place] [address] Urea nitrogen/Creatinine [Mass ratio] 12 No Units Normal 10-20 [facility] Comment on above: Performed By: #### 2 382113 #### [facility] [address] [place] [address] CBC w/ Auto Diffon 4 Basophils/100 WBC (Bld) 0.5 % Normal 0.0-2.0 [facility] Comment on above: Performed By: #### 2 044127 #### [facility] [address] [place] [address] Basophils/Leukocytes Auto (Bld) [Pure # fraction] 0.0 E9/L Normal 0.0-0.2 [facility] Comment on above: Performed By: #### 2 [id number] #### [facility] [address] [place] [address] Eosinophils (Bld) [#/Vol] 0.1 E9/L Normal 0.0-0.5 [facility] Comment on above: Performed By: #### 2 [id number] #### [facility] [address] [place] [address] Eosinophils/100 WBC (Bld) 1.9 % Normal 0.0-8.0 [facility] Comment on above: Performed By: #### 2 072704 #### [facility] [address] [place] [address] Erythrocyte distribution width (RBC) [Ratio] 14.7 % High 10.9-14.2 [facility] Comment on above: Performed By: #### 2 629248 #### [facility] [address] [place] [address] Hematocrit (Bld) [Volume fraction] 39.3 % Normal 37.7-49.0 [facility] Comment on above: Performed By: #### 2 [id number] #### [facility] [address] [place] [address] Hemoglobin (Bld) [Mass/Vol] 13.5 g/dL Normal 13.5-17.5 [facility] Comment on above: Performed By: #### 2 363003 #### [facility] [address] [place] [address] Lymphocytes (Bld) [#/Vol] 1.4 E9/L Normal 1.0-4.0 [facility] Comment on above: Performed By: #### 2 553039 #### [facility] [address] [place] [address] Lymphocytes/100 WBC (Bld) 19.2 % Normal 14.0-50.0 [facility] Comment on above: Performed By: #### 2 282574 #### [facility] [address] [place] [address] MCH (RBC) [Entitic mass] 32.3 pg Normal 27.0-34.0 [facility] Comment on above: Performed By: #### 2 145128 #### [facility] [address] [place] [address] MCHC (RBC) [Mass/Vol] 34.4 g/dL Normal 31.4-36.[address] [facility] Comment on above: Performed By: #### 2 674081 #### [facility] [address] [place] [address] MCV (RBC) [Entitic vol] 93.8 fL Normal 80.0-100.0 [facility] Comment on above: Performed By: #### 2 698978 #### [facility] [address] [place] [address] Monocytes (Bld) [#/Vol] 0.7 E9/L Normal 0.2-1.0 [facility] Comment on above: Performed By: #### 2 865311 #### [facility] [address] [place] [address] Neutrophils (Bld) [#/Vol] 5.2 E9/L Normal 2.0-7.5 [facility] Comment on above: Performed By: #### 2 413514 #### [facility] [address] [place] [address] Neutrophils/100 WBC (Bld) 69.0 % Normal 36.0-75.0 [facility] Comment on above: Performed By: #### 2 652079 #### [facility] [address] [place] [address] Platelet 294.0 E9/L Normal 150.0-500.0 [facility] Comment on above: Performed By: #### 2 696431 #### [facility] [address] [place] [address] Platelet mean volume (Bld) [Entitic vol] 7.3 fL Normal 6.4-10.8 [facility] Comment on above: Performed By: #### 2 660417 #### [facility] [address] [place] [address] RBC (Bld) [#/Vol] 4.2 E12/L Low 4.3-5.9 [facility] Comment on above: Performed By: #### 2 120956 #### [facility] [address] [place] [address] WBC corrected for nucl RBC Auto (Bld) [#/Vol] 7.5 E9/L Normal 4.0-11.0 [facility] Comment on above: Performed By: #### 2 601725 #### [facility] [address] [place] [address] CHEMISTRYOrdered By: SYSTEM SYSTEM on 05-03-2024 Anion gap [Moles/Vol] 5 mmol/L Low 6 - 16 mEq/L [facility] Calcium [Mass/Vol] 8.8 mg/dL Low 8.9 - 11. 1 mg/dL [facility] Chloride [Moles/Vol] 104 mmol/L Normal 101 - 1 11 mmol/L [facility] CO2 [Moles/Vol] 32 mmol/L High 21 - 31 mmol/L [facility] Creatinine [Mass/Vol] 0.8 mg/dL Normal 0.5 - 1.3 mg/dL [facility] eGFR 103 mL/min/1.73 m2 Normal >=59mL/mi n/ 1.73 m2 [facility] Glucose [Mass/Vol] 90 mg/dL Normal 55 - 199 mg/dL [facility] Potassium [Moles/Vol] 4.2 mmol/L Normal 3.5 - 5.3 mmol/L [facility] Sodium [Moles/Vol] 137 mmol/L Normal 135 - 145 mmol/L [facility] Urea nitrogen [Mass/Vol] 10 mg/dL Normal 5 - 21 mg/dL [facility] Urea nitrogen/Creatinine [Mass ratio] 12 mg/mg Normal 10 - 20 [facility] HEMATOLOGYOrdered By: SYSTEM SYSTEM on 05-03-2024 Basophils/100 WBC (Bld) 0.5 % Normal 0.0 - 2.0 % Rem[facility] Heme Basophils/Leukocytes Auto (Bld) [Pure # fraction] 0.0 E9/L Normal 0.0 - 0.2 E9/L [facility] Eosinophils (Bld) [#/Vol] 0.1 E9/L Normal 0.0 - 0.5 E9/L [facility] Eosinophils/100 WBC (Bld) 1.9 % Normal 0.0 - 8.0 % [facility] Erythrocyte distribution width (RBC) [Ratio] 14.7 % High 10.9 - 14.2 % [facility] Hematocrit (Bld) [Volume fraction] 39.3 % Normal 37.7 - 49.0 % [facility] Hemoglobin (Bld) [Mass/Vol] 13.5 g/dL Normal 13.5 - 17.5 gm/dL [facility] Lymphocytes (Bld) [#/Vol] 1.4 E9/L Normal 1.0 - 4.0 E9/L [facility] Lymphocytes/100 WBC (Bld) 19.2 % Normal 14.0 - 50.0 % [facility] MCH (RBC) [Entitic mass] 32.3 pg Normal 27.0 - 34.0 pg [facility]e MCHC (RBC) [Mass/Vol] 34.4 g/dL Normal 31.4 - 36.0 gm/dL [facility] MCV (RBC) [Entitic vol] 93.8 fL Normal 80.0 - 100.0 fL [facility] Monocytes (Bld) [#/Vol] 0.7 E9/L Normal 0.2 - 1.0 E9/L [facility] Monocytes/100 WBC (Bld) 9.4 % Normal 4.0 - 14.0 % [facility] Neutrophils (Bld) [#/Vol] 5.2 E9/L Normal 2.0 - 7.5 E9/L [facility] Neutrophils/100 WBC (Bld) 69.0 % Normal 36.0 - 75.0 % [facility] Platelet 294.0 E9/L Normal 150.0 - 500.0 E9/L [facility] Platelet mean volume (Bld) [Entitic vol] 7.3 fL Normal 6.4 - 10.8 fL [facility]e RBC (Bld) [#/Vol] 4.2 E12/L Low 4.3 - 5.9 E12/L [facility] WBC corrected for nucl RBC Auto (Bld) [#/Vol] 7.5 E9/L Normal 4.0 - 11.0 E9/L [facility] eGFRon 05-03-2024 eGFR 103 mL/min/1.73 m2 Normal >=59 [facility] Comment on above: Performed By: #### 1 [id number] ####[facility] [id number] [place] [address] [facility] KATYA Telephone (DAVID) -- ENRRIQUE MADERA ([id number]) 1965 M Date Time Provider Department 05/02/24 ALISON BRICENO During your visit today, we recorded the following information about you: Dea Wolf 05/02/2024 4:40 PM Signed The [facility] [phone] phone number Dina Bauer RN 05/03/2024 1:20 PM Signed Patient notified by Dr. Briceno. See 04/23/24 [facility] encounter. Allergies As of Date: 05/02/2024 Noted Allergy Reaction OXYCODONE 01/26/2023 16 - Unknown Comments: Other Reaction(s): addiction/former addict. Agreeable to use during acute pain episode hospitalization Date Reviewed: 04/25/2024 Reviewed by: Lisbet Kerr [facility] - Fully Assessed Reason for Visit: Specialty Pharmacy [Other] Prescriptions as of 05/03/2024 - Teriparatide (FORTEO) 20 mcg/dose (600mcg/2.4mL) Inject 0.08 mL subcutaneously once daily. - ALPRAZolam (XANAX) 0.25 mg tablet take 1 hour prior to mri. 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 - lisinopril (ZESTRIL) 20 mg tablet Take 1 tablet by mouth once daily. - tamsulosin (FLOMAX) 0.4 mg Take 1 capsule by mouth daily at bedtime. - omeprazole (PRILOSEC) 40 mg capsule Take 40 mg by mouth once daily as needed. - buprenorphine (BUTRANS) 15 mcg/hour patch Apply 1 Patch as directed one time a week. - buPROPion SR (WELLBUTRIN SR) 150 mg 12 hr tablet Take 150 mg by mouth two times a day. - diclofenac, EC, (VOLTAREN) 75 mg EC tablet Take 75 mg by mouth two times a day. - FLUoxetine (PROZAC) 20 mg capsule Take 40 mg by mouth once daily. - naloxone 4 mg/actuation nasal spray (NARCAN) Use 4 mg in the nose at bedtime as needed. 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] 09/09/2020 03/01/2024 Chronic pain [G89.29] 03/01/2024 Depressive disorder [F32.A] 03/01/2024 03/01/2024 Erectile dysfunction due to arterial insufficie*03/01/2024 03/01/2024 GERD without esophagitis [K21.9] 03/01/2024 HTN (hypertension) [I10] 03/01/2024 BRADY (obstructive sleep apnea) [G47.33] 03/19/2024 C7 cervical fracture (HCC) [S12.600A] 03/17/2014 Compression fracture of vertebral column (HCC) *03/17/2014 Low back pain [M54.50] 03/17/2014 Back pain of thoracolumbar region [M54.50, M54.*03/20/2024 Acute on chronic low back pain [M54.50, G89.29] 03/20/2024 03/23/2024 Hypokalemia [E87.6] 03/20/2024 03/23/2024 Hyponatremia [E87.1] 03/20/2024 03/23/2024 Acute on chronic back pain [M54.9, G89.29] 03/21/2024 Urinary retention [R33.9] 03/22/2024 03/23/2024 Encounter Status:Closed by DUANESUEDINA Gilliland on 05/03/24 Normal [facility] BD DXA - AXIAL SKELETONon BD DXA - AXIAL SKELETON * * *Final Report* * * DATE OF EXAM: Apr 30 2024 10:47AM JEAN MARIE Torrez04 - BD DXA - AXIAL SKELETON / PROCEDURE REASON: Compression fracture of body of thoracic vertebra (HCC) * * * * Physician Interpretation * * * * EXAMINATION: DXA BONE DENSITOMETRY BD DXA - AXIAL SKELETON, BD DXA TRABECLR BONE SCORE (TBS) PATIENT DEMOGRAPHICS: Age: 58 years, Gender: Male SCANNER INFORMATION: DXA Model: [id number] Date Scanned: 04/30/2024 10:47 AM CLINICAL HISTORY: SCREENING Compression fracture of body of thoracic vertebra (HCC) . RISK FACTORS FOR OSTEOPOROSIS AND ASSOCIATED FRACTURES REPORTED BY THIS PATIENT: Please refer to Bone Health Questionnaire in the EMR CURRENT THERAPY: Please refer to Bone Health Questionnaire in the EMR TECHNICAL LIMITATIONS: Degenerative disease of the spine RESULTS: Lumbar Spine (L1, L2, L3): Total BMD: 0.890 g/cm2, T-score: -2.7 , Z-score: -2.6 Left Femoral Neck: 0.827 g/cm2 , T-score -1.9, Z-score -1.2 Left Total Hip: 0.869 g/cm2 , T-score -1.6 , Z-score -1.3 No comparison data - the patient has not had a previous bone density in the [facility] or the previous bone density was performed on a different DXA machine (new, updated model or different location) within the [facility]. VERTEBRAL FRACTURE ASSESSMENT Not performed. TRABECULAR BONE ASSESSMENT TBS score: 1.156 Bone micro-architecture: L1-L4: degraded (< or = 1.230) IMPRESSION: THE LOWEST T-SCORE IS -2.7 IN THE SPINE 1) DIAGNOSIS (based on BMD alone): OSTEOPOROSIS Caution: Medical conditions other than osteoporosis may cause low bone density, such as osteomalacia or renal osteodystrophy. Clinical correlation is necessary. 2) FRACTURE RISK (Based on TBS adjusted FRAX): 10-year absolute fracture risk: - major osteoporotic fracture =9.0 % - hip fracture = 1.4 % - A diagnosis of Osteoporosis, a 10 year probability of hip fracture greater than or equal to 3% or a 10 year probability of any major osteoporosis-related fracture greater than or equal to 20% should be considered for treatment. - DXA scanner generated FRAX calculations may slightly differ from online FRAX calculations due to differences in software versions. - All recommendations and calculations are to be considered as guidelines and should not replace sound clinical judgement - Caution: Fracture risk may be increased independent of BMD in patients with corticosteroid use, age greater than 65 years, or a history of prior fragility fracture. RECOMMENDATIONS: Follow-up in 2 years or as clinically indicated. Patients that are taking corticosteroids, are transplant recipients or have hyperparathyroidism should have annual follow-up. Follow-up scans should always be done on the same machine for accurate comparison. FOR MORE INFORMATION ABOUT DIAGNOSIS AND TREATMENT: [facility] for Osteoporosis and Metabolic Bone Disease:? www.ccf.org/arthritis/oste o National Osteoporosis Foundation:? www.nof.org International Society of Clinical Densitometry www.iscd.org Hand Inspector: HARRIETT Transcribe Date/Time: Apr 30 2024 11:24A Dictated by : Guicho SAMANO MD This examination was interpreted and the report reviewed and electronically signed by: Guicho SAMANO MD on Apr 30 2024 11:27AM EST [id number] -[id number] [facility] BD DXA TRABECLR BONE SCORE ( TBS)on 04-30-2024 BD DXA TRABECLR BONE SCORE (TBS) * * *Final Report* * * DATE OF EXAM: Apr 30 2024 10:47AM [facility] 0801 - BD DXA TRABECLR BONE SCORE (TBS) / PROCEDURE REASON: Compression fracture of body of thoracic vertebra (HCC) * * * * Physician Interpretation * * * * EXAMINATION: DXA BONE DENSITOMETRY BD DXA - AXIAL SKELETON, BD DXA TRABECLR BONE SCORE (TBS) PATIENT DEMOGRAPHICS: Age: 58 years, Gender: Male SCANNER INFORMATION: DXA Model: [employer] [id number] Date Scanned: 04/30/2024 10:47 AM CLINICAL HISTORY: SCREENING Compression fracture of body of thoracic vertebra (HCC) . RISK FACTORS FOR OSTEOPOROSIS AND ASSOCIATED FRACTURES REPORTED BY THIS PATIENT: Please refer to Bone Health Questionnaire in the EMR CURRENT THERAPY: Please refer to Bone Health Questionnaire in the EMR TECHNICAL LIMITATIONS: Degenerative disease of the spine RESULTS: Lumbar Spine (L1, L2, L3): Total BMD: 0.890 g/cm2, T-score: -2.7 , Z-score: -2.6 Left Femoral Neck: 0.827 g/cm2 , T-score -1.9, Z-score -1.2 Left Total Hip: 0.869 g/cm2 , T-score -1.6 , Z-score -1.3 No comparison data - the patient has not had a previous bone density in the [facility] or the previous bone density was performed on a different DXA machine (new, updated model or different location) within the [facility]. VERTEBRAL FRACTURE ASSESSMENT Not performed. TRABECULAR BONE ASSESSMENT TBS score: 1.156 Bone micro-architecture: L1-L4: degraded (< or = 1.230) IMPRESSION: THE LOWEST T-SCORE IS -2.7 IN THE SPINE 1) DIAGNOSIS (based on BMD alone): OSTEOPOROSIS Caution: Medical conditions other than osteoporosis may cause low bone density, such as osteomalacia or renal osteodystrophy. Clinical correlation is necessary. 2) FRACTURE RISK (Based on TBS adjusted FRAX): 10-year absolute fracture risk: - major osteoporotic fracture =9.0 % - hip fracture = 1.4 % - A diagnosis of Osteoporosis, a 10 year probability of hip fracture greater than or equal to 3% or a 10 year probability of any major osteoporosis-related fracture greater than or equal to 20% should be considered for treatment. - DXA scanner generated FRAX calculations may slightly differ from online FRAX calculations due to differences in software versions. - All recommendations and calculations are to be considered as guidelines and should not replace sound clinical judgement - Caution: Fracture risk may be increased independent of BMD in patients with corticosteroid use, age greater than 65 years, or a history of prior fragility fracture. RECOMMENDATIONS: Follow-up in 2 years or as clinically indicated. Patients that are taking corticosteroids, are transplant recipients or have hyperparathyroidism should have annual follow-up. Follow-up scans should always be done on the same machine for accurate comparison. FOR MORE INFORMATION ABOUT DIAGNOSIS AND TREATMENT: [facility] for Osteoporosis and Metabolic Bone Disease:? www.ccf.org/arthritis/oste o National Osteoporosis Foundation:? www.nof.org International Society of Clinical Densitometry www.iscd.org Hand Inspector: HARRIETT Transcribe Date/Time: Apr 30 2024 11:24A Dictated by : Guicho SAMANO MD This examination was interpreted and the report reviewed and electronically signed by: Guicho SAMANO MD on Apr 30 2024 11:27AM EST [id number] -2.7 [facility] 04-30-2024 [facility] Telephone (NIQ) -- ENRRIQUE MADERA ([id number]) 1965 M Date Time Provider Department 04/30/24 ALISON BRICENO NIQ During your visit today, we recorded the following information about you: Dea Wolf 04/30/2024 5:16 PM Signed Received outside imaging/report: CD No Report Yes Type of study MRI Thoracic wo con Date of study 04/27/24 [facility] msg sent to pt to make arrangement to have the MRI Thoracic images sent to the office. Forwarded to team for review. Dea So Please verify that both the imaging disc and report were received and/or requested. Alison Briceno MD 05/01/2024 8:32 PM Addendum call for bmd, tbs urine calcium 600 prev down to 399 bmd lowest T-score -2.7 Tbs degraded architecture 1.17 Izabella Seaman 05/02/2024 1:37 PM Signed Pt called stated that he's been waiting for MD on zoom since 1PM. I have paged re this matter. Pls call back [phone] Dina Bauer, KRISTIN 05/02/2024 2:42 PM Signed Called and spoke with patient. Patient received phone call from Dr. Briceno. No questions or other concerns at this time. Allergies As of Date: 04/30/2024 Noted Allergy Reaction OXYCODONE 01/26/2023 16 - Unknown Comments: Other Reaction(s): addiction/former addict. Agreeable to use during acute pain episode hospitalization Date Reviewed: 04/25/2024 Reviewed by: Lisbet Kerr [facility] - Fully Assessed Reason for Visit: results [Other] Prescriptions as of 05/02/2024 - ALPRAZolam (XANAX) 0.25 mg tablet take 1 hour prior to mri. 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 - lisinopril (ZESTRIL) 20 mg tablet Take 1 tablet by mouth once daily. - tamsulosin (FLOMAX) 0.4 mg Take 1 capsule by mouth daily at bedtime. - omeprazole (PRILOSEC) 40 mg capsule Take 40 mg by mouth once daily as needed. - buprenorphine (BUTRANS) 15 mcg/hour patch Apply 1 Patch as directed one time a week. - buPROPion SR (WELLBUTRIN SR) 150 mg 12 hr tablet Take 150 mg by mouth two times a day. - diclofenac, EC, (VOLTAREN) 75 mg EC tablet Take 75 mg by mouth two times a day. - FLUoxetine (PROZAC) 20 mg capsule Take 40 mg by mouth once daily. - naloxone 4 mg/actuation nasal spray (NARCAN) Use 4 mg in the nose at bedtime as needed. - sildenafil (REVATIO) 20 mg tablet 2 TO 3 TABLETS, Oral, Daily, PRN: NEEDED, # 90 tab(s), 1 Refill(s), Pharmacy: [facility] 1445, TAKE 2 TO 3 TABLETS BY MOUTH ONCE DAILY NEEDED, 182.88, cm, 12/16/23 6:36:00 EDT, Height, 89.3, kg, 12/16/23 6:42:00 EDT, Weight Dosing Problem List As Of Date 04/30/2024 Noted Resolved Burst fracture of T12 vertebra (HCC) [S22.081A] 03/17/2014 Carpal tunnel syndrome of right wrist [G56.01] 01/26/2023 03/01/2024 Chondromalacia of right knee [M94.261] 09/09/2020 03/01/2024 Chronic pain [G89.29] 03/01/2024 Depressive disorder [F32.A] 03/01/2024 03/01/2024 Erectile dysfunction due to arterial insufficie*03/01/2024 03/01/2024 GERD without esophagitis [K21.9] 03/01/2024 HTN (hypertension) [I10] 03/01/2024 BRADY (obstructive sleep apnea) [G47.33] 03/19/2024 C7 cervical fracture (HCC) [S12.600A] 03/17/2014 Compression fracture of vertebral column (HCC) *03/17/2014 Low back pain [M54.50] 03/17/2014 Back pain of thoracolumbar region [M54.50, M54.*03/20/2024 Acute on chronic low back pain [M54.50, G89.29] 03/20/2024 03/23/2024 Hypokalemia [E87.6] 03/20/2024 03/23/2024 Hyponatremia [E87.1] 03/20/2024 03/23/2024 Acute on chronic back pain [M54.9, G89.29] 03/21/2024 Urinary retention [R33.9] 03/22/2024 03/23/2024 Encounter Status:Closed by DINA BAUER on 05/02/24 Normal [facility] DXA Femur [T-score] Bone sabina valdes 04-30-2024 * * *Final Report* * * DATE OF EXAM: Apr 30 2024 10:47AM JEAN MARIE 0801 - BD DXA TRABECLR BONE SCORE (TBS) / PROCEDURE REASON: Compression fracture of body of thoracic vertebra (HCC) * * * * Physician Interpretation * * * * EXAMINATION: DXA BONE DENSITOMETRY BD DXA - AXIAL SKELETON, BD DXA TRABECLR BONE SCORE (TBS) PATIENT DEMOGRAPHICS: Age: 58 years, Gender: Male SCANNER INFORMATION: DXA Model: [employer] [id number] Date Scanned: 04/30/2024 10:47 AM CLINICAL HISTORY: SCREENING Compression fracture of body of thoracic vertebra (HCC) . RISK FACTORS FOR OSTEOPOROSIS AND ASSOCIATED FRACTURES REPORTED BY THIS PATIENT: Please refer to Bone Health Questionnaire in the EMR CURRENT THERAPY: Please refer to Bone Health Questionnaire in the EMR TECHNICAL LIMITATIONS: Degenerative disease of the spine RESULTS: Lumbar Spine (L1, L2, L3): Total BMD: 0.890 g/cm2, T-score: -2.7 , Z-score: -2.6 Left Femoral Neck: 0.827 g/cm2 , T-score -1.9, Z-score -1.2 Left Total Hip: 0.869 g/cm2 , T-score -1.6 , Z-score -1.3 No comparison data - the patient has not had a previous bone density in the [facility] or the previous bone density was performed on a different DXA machine (new, updated model or different location) within the [facility]. VERTEBRAL FRACTURE ASSESSMENT Not performed. TRABECULAR BONE ASSESSMENT TBS score: 1.156 Bone micro-architecture: L1-L4: degraded (< or = 1.230) [facility] Provider, [facility] - 04/30/2024 * * *Final Report* * * DATE OF EXAM: Apr 30 2024 10:47AM [facility] 0801 - BD DXA TRABECLR BONE SCORE (TBS) / PROCEDURE REASON: Compression fracture of body of thoracic vertebra (HCC) * * * * Physician Interpretation * * * * EXAMINATION: DXA BONE DENSITOMETRY BD DXA - AXIAL SKELETON, BD DXA TRABECLR BONE SCORE (TBS) PATIENT DEMOGRAPHICS: Age: 58 years, Gender: Male SCANNER INFORMATION: DXA Model: [employer] [id number] Date Scanned: 04/30/2024 10:47 AM CLINICAL HISTORY: SCREENING Compression fracture of body of thoracic vertebra (HCC) . RISK FACTORS FOR OSTEOPOROSIS AND ASSOCIATED FRACTURES REPORTED BY THIS PATIENT: Please refer to Bone Health Questionnaire in the EMR CURRENT THERAPY: Please refer to Bone Health Questionnaire in the EMR TECHNICAL LIMITATIONS: Degenerative disease of the spine RESULTS: Lumbar Spine (L1, L2, L3): Total BMD: 0.890 g/cm2, T-score: -2.7 , Z-score: -2.6 Left Femoral Neck: 0.827 g/cm2 , T-score -1.9, Z-score -1.2 Left Total Hip: 0.869 g/cm2 , T-score -1.6 , Z-score -1.3 No comparison data - the patient has not had a previous bone density in the [facility] or the previous bone density was performed on a different DXA machine (new, updated model or different location) within the [facility]. VERTEBRAL FRACTURE ASSESSMENT Not performed. TRABECULAR BONE ASSESSMENT TBS score: 1.156 Bone micro-architecture: L1-L4: degraded (< or = 1.230) IMPRESSION IMPRESSION: THE LOWEST T-SCORE IS -2.7 IN THE SPINE 1) DIAGNOSIS (based on BMD alone): OSTEOPOROSIS Caution: Medical conditions other than osteoporosis may cause low bone density, such as osteomalacia or renal osteodystrophy. Clinical correlation is necessary. 2) FRACTURE RISK (Based on TBS adjusted FRAX): 10-year absolute fracture risk: - major osteoporotic fracture =9.0 % - hip fracture = 1.4 % - A diagnosis of Osteoporosis, a 10 year probability of hip fracture greater than or equal to 3% or a 10 year probability of any major osteoporosis-related fracture greater than or equal to 20% should be considered for treatment. - DXA scanner generated FRAX calculations may slightly differ from online FRAX calculations due to differences in software versions. - All recommendations and calculations are to be considered as guidelines and should not replace sound clinical judgement - Caution: Fracture risk may be increased independent of BMD in patients with corticosteroid use, age greater than 65 years, or a history of prior fragility fracture. RECOMMENDATIONS: Follow-up in 2 years or as clinically indicated. Patients that are taking corticosteroids, are transplant recipients or have hyperparathyroidism should have annual follow-up. Follow-up scans should always be done on the same machine for accurate comparison. FOR MORE INFORMATION ABOUT DIAGNOSIS AND TREATMENT: [facility] for Osteoporosis and Metabolic Bone Disease:? www.ccf.org/arthritis/oste o National Osteoporosis Foundation:? www.nof.org International Society of Clinical Densitometry www.iscd.org Hand Inspector: HARRIETT Transcribe Date/Time: Apr 30 2024 11:24A Dictated by : Guicho SAMANO MD This examination was interpreted and the report reviewed and electronically signed by: Guicho SAMANO MD on Apr 30 2024 11:27AM EST [facility] DXA Skeletal system.axial Vi ews for bone densityon 04-30-2024 * * *Final Report* * * DATE OF EXAM: Apr 30 2024 10:47AM JEAN MARIE 0804 - BD DXA - AXIAL SKELETON / PROCEDURE REASON: Compression fracture of body of thoracic vertebra (HCC) * * * * Physician Interpretation * * * * EXAMINATION: DXA BONE DENSITOMETRY BD DXA - AXIAL SKELETON, BD DXA TRABECLR BONE SCORE (TBS) PATIENT DEMOGRAPHICS: Age: 58 years, Gender: Male SCANNER INFORMATION: DXA Model: [employer] [id number] Date Scanned: 04/30/2024 10:47 AM CLINICAL HISTORY: SCREENING Compression fracture of body of thoracic vertebra (HCC) . RISK FACTORS FOR OSTEOPOROSIS AND ASSOCIATED FRACTURES REPORTED BY THIS PATIENT: Please refer to Bone Health Questionnaire in the EMR CURRENT THERAPY: Please refer to Bone Health Questionnaire in the EMR TECHNICAL LIMITATIONS: Degenerative disease of the spine RESULTS: Lumbar Spine (L1, L2, L3): Total BMD: 0.890 g/cm2, T-score: -2.7 , Z-score: -2.6 Left Femoral Neck: 0.827 g/cm2 , T-score -1.9, Z-score -1.2 Left Total Hip: 0.869 g/cm2 , T-score -1.6 , Z-score -1.3 No comparison data - the patient has not had a previous bone density in the [facility] or the previous bone density was performed on a different DXA machine (new, updated model or different location) within the [facility]. VERTEBRAL FRACTURE ASSESSMENT Not performed. TRABECULAR BONE ASSESSMENT TBS score: 1.156 Bone micro-architecture: L1-L4: degraded (< or = 1.230) [facility] RADIOLOGY Provider, Jammie Tellez [facility] - 04/30/2024 * * *Final Report* * * DATE OF EXAM: Apr 30 2024 10:47AM [place] [address] - DXA - AXIAL SKELETON / PROCEDURE REASON: Compression fracture of body of thoracic vertebra (HCC) * * * * Physician Interpretation * * * * EXAMINATION: DXA BONE DENSITOMETRY BD DXA - AXIAL SKELETON, BD DXA TRABECLR BONE SCORE (TBS) PATIENT DEMOGRAPHICS: Age: 58 years, Gender: Male SCANNER INFORMATION: DXA Model: [employer] [id number] Date Scanned: 04/30/2024 10:47 AM CLINICAL HISTORY: SCREENING Compression fracture of body of thoracic vertebra (HCC) . RISK FACTORS FOR OSTEOPOROSIS AND ASSOCIATED FRACTURES REPORTED BY THIS PATIENT: Please refer to Bone Health Questionnaire in the EMR CURRENT THERAPY: Please refer to Bone Health Questionnaire in the EMR TECHNICAL LIMITATIONS: Degenerative disease of the spine RESULTS: Lumbar Spine (L1, L2, L3): Total BMD: 0.890 g/cm2, T-score: -2.7 , Z-score: -2.6 Left Femoral Neck: 0.827 g/cm2 , T-score -1.9, Z-score -1.2 Left Total Hip: 0.869 g/cm2 , T-score -1.6 , Z-score -1.3 No comparison data - the patient has not had a previous bone density in the [facility] or the previous bone density was performed on a different DXA machine (new, updated model or different location) within the [facility]. VERTEBRAL FRACTURE ASSESSMENT Not performed. TRABECULAR BONE ASSESSMENT TBS score: 1.156 Bone micro-architecture: L1-L4: degraded (< or = 1.230) IMPRESSION IMPRESSION: THE LOWEST T-SCORE IS -2.7 IN THE SPINE 1) DIAGNOSIS (based on BMD alone): OSTEOPOROSIS Caution: Medical conditions other than osteoporosis may cause low bone density, such as osteomalacia or renal osteodystrophy. Clinical correlation is necessary. 2) FRACTURE RISK (Based on TBS adjusted FRAX): 10-year absolute fracture risk: - major osteoporotic fracture =9.0 % - hip fracture = 1.4 % - A diagnosis of Osteoporosis, a 10 year probability of hip fracture greater than or equal to 3% or a 10 year probability of any major osteoporosis-related fracture greater than or equal to 20% should be considered for treatment. - DXA scanner generated FRAX calculations may slightly differ from online FRAX calculations due to differences in software versions. - All recommendations and calculations are to be considered as guidelines and should not replace sound clinical judgement - Caution: Fracture risk may be increased independent of BMD in patients with corticosteroid use, age greater than 65 years, or a history of prior fragility fracture. RECOMMENDATIONS: Follow-up in 2 years or as clinically indicated. Patients that are taking corticosteroids, are transplant recipients or have hyperparathyroidism should have annual follow-up. Follow-up scans should always be done on the same machine for accurate comparison. FOR MORE INFORMATION ABOUT DIAGNOSIS AND TREATMENT: [facility] for Osteoporosis and Metabolic Bone Disease:? www.ccf.org/arthritis/oste o National Osteoporosis Foundation:? www.nof.org International Society of Clinical Densitometry www.iscd.org Hand Inspector: HARRIETT Transcribe Date/Time: Apr 30 2024 11:24A Dictated by : Guicho SAMANO MD This examination was interpreted and the report reviewed and electronically signed by: Guicho SAMANO MD on Apr 30 2024 11:27AM EST [facility] No Panel InformationOrdered By: f Provider on 04-30-2024 LOWEST T-SCORE -2.7 [facility] No Panel Informationon 04-30 IMPRESSION: THE LOWEST T-SCORE IS -2.7 IN THE SPINE 1) DIAGNOSIS (based on BMD alone): OSTEOPOROSIS Caution: Medical conditions other than osteoporosis may cause low bone density, such as osteomalacia or renal osteodystrophy. Clinical correlation is necessary. 2) FRACTURE RISK (Based on TBS adjusted FRAX): 10-year absolute fracture risk: - major osteoporotic fracture =9.0 % - hip fracture = 1.4 % - A diagnosis of Osteoporosis, a 10 year probability of hip fracture greater than or equal to 3% or a 10 year probability of any major osteoporosis-related fracture greater than or equal to 20% should be considered for treatment. - DXA scanner generated FRAX calculations may slightly differ from online FRAX calculations due to differences in software versions. - All recommendations and calculations are to be considered as guidelines and should not replace sound clinical judgement - Caution: Fracture risk may be increased independent of BMD in patients with corticosteroid use, age greater than 65 years, or a history of prior fragility fracture. RECOMMENDATIONS: Follow-up in 2 years or as clinically indicated. Patients that are taking corticosteroids, are transplant recipients or have hyperparathyroidism should have annual follow-up. Follow-up scans should always be done on the same machine for accurate comparison. FOR MORE INFORMATION ABOUT DIAGNOSIS AND TREATMENT: [facility] Osteoporosis and Metabolic Bone Disease:? www.ccf.org/arthritis/oste o National Osteoporosis Foundation:? www.nof.org International Society of Clinical Densitometry www.iscd.org Hand Inspector: HARRIETT Transcribe Date/Time: Apr 30 2024 11:24A Dictated by : Guicho SAMANO MD This examination was interpreted and the report reviewed and electronically signed by: Guicho SAMANO MD on Apr 30 2024 11:27AM [facility] RADIOLOGY Radiology Study observation (narrative) [facility] CALCIUM, 24 HR URINEon 04-29 Calcium (24H U) [Mass/Time] 399.6 mg/24 hr High 100.0-300.0 [facility] Comment on above: Order Comment: Speci men Type: URINE SPECIMENOrdering Facility: [facility] Address: [address] [place] [address] Performed By: #### U CALCD ####[facility] LABCLIA [id number] [place] [id number] [place] PERIOD (HRS) 24 hr Normal [facility] Comment on above: Order Comment: Speci men Type: URINE SPECIMENOrdering Facility: [facility] [facility] Address: [address] [place] [address] Performed By: #### U CALCD ####[facility] LABCLIA [id number] [place] [address] [place] Specimen volume (24H U) 3.7 L Normal [facility] Comment on above: Order Comment: Speci men Type: URINE SPECIMENOrdering Facility: [facility] Address: [address] [place] [address] Performed By: #### U CALCD ####[facility] LABCLIA [id number] [address] [place] Ambulatory Visit Summaryon 0 04-27-2024 Ambulatory Visit Summary Ambulatory Visit Summary ZHOU ENRRIQUE Linton :1965 Visit Date:04/27/2024 Ambulatory Visit Instructions Your Care Team Attending Physician - Wilmer RUBIN MD Primary Care Physician - Hany Olivares MD This Is Your Medications List Contact prescribing physician if questions or concerns buPROPion (Wellbutrin XL 300 mg/24 hours Tab-ER) buprenorphine cyclobenzaprine (cyclobenzaprine 10 mg Tab) diclofenac (diclofenac sodium 75 mg Oral EC Tab) fluoxetine (Prozac 40 mg Cap) gabapentin (gabapentin 600 mg Tab) lisinopril (lisinopril 40 mg Tab) methocarbamol trazodone (traZODONE 50 mg Tab) Procedures Performed Decompression laminectomy of lumbar spine, History of ankle surgery. Discharge Vitals Heart Rate (Peripheral) 83 Respiratory Rate 16 Blood Pressure 148/89 Height 182.88 cm Height 72 in Weight 83.4 kg Weight 183.48 lb BMI 24.94 Medications What How Much When Instructions Unchanged buprenorphine as directed Contact prescribing physician if questions or concerns Unchanged buPROPion (Wellbutrin XL 300 mg/ 24 hours Tab-ER) 1 Tablets By Mouth Every day Contact prescribing physician if questions or concerns Unchanged cyclobenzaprine (cyclobenzaprine 10 mg Tab) 1 Tablets By Mouth 3 times a day as needed for for spasm Contact prescribing physician if questions or concerns Unchanged diclofenac (diclofenac sodium 75 mg Oral EC Tab) 1 Tablets By Mouth 2 times a day Contact prescribing physician if questions or concerns Unchanged fluoxetine (Prozac 40 mg Cap) 1 Capsules By Mouth Every day Contact prescribing physician if questions or concerns Unchanged gabapentin (gabapentin 600 mg Tab) 1 Tablets By Mouth 3 times a day Contact prescribing physician if questions or concerns Unchanged lisinopril (lisinopril 40 mg Tab) 1 Tablets By Mouth Every day Contact prescribing physician if questions or concerns Unchanged methocarbamol Contact prescribing physician if questions or concerns Unchanged trazodone (traZODONE 50 mg Tab) 1 Tablets By Mouth Once a day (at bedtime) Contact prescribing physician if questions or concerns Allergies No Known Allergies No Known Medication Allergies Problems Ongoing - Any problem that you are currently receiving treatment for. Chondromalacia Hypertension Lumbar radiculopathy Osteoporosis Patient Survey You may receive a survey via text or e-mail asking about your office visit. Please share your experience with us by completing your survey. We appreciate your feedback and thank you for choosing us for your care. [facility] Livan 04-26-2024 [facility] Telephone (NIQ) -- ENRRIQUE MADERA ([id number]) 1965 M Date Time Provider Department 04/26/24 ALISON BRICENO During your visit today, we recorded the following information about you: Dea Wolf 04/26/2024 4:24 PM Signed Received the following record(s) via fax. -DXA Bone Densitometry Report Date 04/24/24 Record(s) scanned into pt's chart. Dea Herman [facility] Dina Bauer RN 04/30/2024 3:47 PM Signed Noted. Patient to have MRI-C/T completed. Allergies As of Date: 04/26/2024 Noted Allergy Reaction OXYCODONE 01/26/2023 16 - Unknown Comments: Other Reaction(s): addiction/former addict. Agreeable to use during acute pain episode hospitalization Date Reviewed: 04/25/2024 Reviewed by: Lisbet Kerr O[facility] - Fully Assessed Reason for Visit: F/U on Bone Density Results [1260] Prescriptions as of 05/02/2024 - ALPRAZolam (XANAX) 0.25 mg tablet take 1 hour prior to mri. 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 - lisinopril (ZESTRIL) 20 mg tablet Take 1 tablet by mouth once daily. - tamsulosin (FLOMAX) 0.4 mg Take 1 capsule by mouth daily at bedtime. - omeprazole (PRILOSEC) 40 mg capsule Take 40 mg by mouth once daily as needed. - buprenorphine (BUTRANS) 15 mcg/hour patch Apply 1 Patch as directed one time a week. - buPROPion SR (WELLBUTRIN SR) 150 mg 12 hr tablet Take 150 mg by mouth two times a day. - diclofenac, EC, (VOLTAREN) 75 mg EC tablet Take 75 mg by mouth two times a day. - FLUoxetine (PROZAC) 20 mg capsule Take 40 mg by mouth once daily. - naloxone 4 mg/actuation nasal spray (NARCAN) Use 4 mg in the nose at bedtime as needed. - sildenafil (REVATIO) 20 mg tablet 2 TO 3 TABLETS, Oral, Daily, PRN: NEEDED, # 90 tab(s), 1 Refill(s), Pharmacy: [id number], TAKE 2 TO 3 TABLETS BY MOUTH ONCE DAILY NEEDED, 182.88, cm, 12/16/23 6:36:00 EDT, Height, 89.3, kg, 12/16/23 6:42:00 EDT, Weight Dosing Problem List As Of Date 04/26/2024 Noted Resolved Burst fracture of T12 vertebra (HCC) [S22.081A] 03/17/2014 Carpal tunnel syndrome of right wrist [G56.01] 01/26/2023 03/01/2024 Chondromalacia of right knee [M94.261] 09/09/2020 03/01/2024 Chronic pain [G89.29] 03/01/2024 Depressive disorder [F32.A] 03/01/2024 03/01/2024 Erectile dysfunction due to arterial insufficie*03/01/2024 03/01/2024 GERD without esophagitis [K21.9] 03/01/2024 HTN (hypertension) [I10] 03/01/2024 BRADY (obstructive sleep apnea) [G47.33] 03/19/2024 C7 cervical fracture (HCC) [S12.600A] 03/17/2014 Compression fracture of vertebral column (HCC) *03/17/2014 Low back pain [M54.50] 03/17/2014 Back pain of thoracolumbar region [M54.50, M54.*03/20/2024 Acute on chronic low back pain [M54.50, G89.29] 03/20/2024 03/23/2024 Hypokalemia [E87.6] 03/20/2024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 on above: Order Comment: Speci men Type: BLOOD SPECIMENOrdering Facility: [facility] Address: [address] [place] [address] Performed By: #### 5 8410-2 ####[facility] LABIA [id number] [place] [address] [place] Nucleated RBC (Bld) [#/Vol] 10*3/uL Normal <0.01 [facility] Comment on above: Order Comment: Speci men Type: BLOOD SPECIMENOrdering Facility: [facility] Address: [address] [place] [address] Performed By: #### 5 8410-2 ####[facility] LABIA [id number] [place] [address] [place] Platelet mean volume (Bld) [Entitic vol] 9.2 fL Normal 9.0-12.7 [facility] Comment on above: Order Comment: Speci men Type: BLOOD SPECIMENOrdering Facility: [facility] Address: [address] [place] [address] Performed By: #### 5 8410-2 ####[facility] LABIA [id number] [place] [address] [place] Platelets (Bld) [#/Vol] 251 10*3/uL Normal 150-400 [facility] Comment on above: Order Comment: Speci men Type: BLOOD SPECIMENOrdering Facility: [facility] Address: [address] [place] [address] Performed By: #### 5 8410-2 ####[facility] LABIA [id number] [place] [address] [place] RBC (Bld) [#/Vol] 4.58 10*6/uL Normal 4.20-6.00 [facility] Comment on above: Order Comment: Speci men Type: BLOOD SPECIMENOrdering Facility: [facility] Address: [address] [place] [address] Performed By: #### 5 8410-2 ####[facility] LABIA [id number] [place] [address] [place] WBC (Bld) [#/Vol] 11.41 10*3/uL High 3.70-11.00 [facility] Comment on above: Order Comment: Speci men Type: BLOOD SPECIMENOrdering Facility: [facility] Address: [address] [place] [address] Performed By: #### 5 8410-2 ####[facility] [id number] [address] [place] CNDSon 03-23-2024 CNDS HNO ID: [id number] Author: MCKAYLA PRINCE PA-C Service: Hospital Medicine Author Type: Physician Dental Appliance Mechanic Type: Discharge Summary Filed: 03/23/2024 16:26 Note Text: -- Attestation signed by Jackie Keita MD at 03/23/2024 4:45 PM [facility] STAFF PHYSICIAN NOTE OF PERSONAL INVOLVEMENT IN CARE I have reviewed the discharge summary obtained and documented by the physician assistant grocery store manager and I personally participated in the sams [...] 23, 2024 TIME of SERVICE: 4:44 PM -- DISCHARGE SUMMARY PATIENT NAME: Enrrique Madera ADMISSION DATE: 03/19/2024 DISCHARGE DATE: 03/23/2024 ATTENDING PHYSICIAN: Jackie Keita MD Code Status: Full Code PCP: Hany Olivares MD Highest Readmission Risk Score: 12 The [...] Attending Provider: Jackie Keita MD Primary Service: , Gi Physician Dental Appliance Mechanic: Mckayla Prince PA-C PATIENT CONDITION AT DISCHARGE: [...] soft, n (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 Normal [facility] CT LUMBAR SPINE WO IVCONon 0 03-23-2024 CT LUMBAR SPINE WO IVCON * * *Final Report* * * DATE OF EXAM: Mar 23 2024 11:08AM [facility] - [place] LUMBAR SPINE WO IVCON [...] are 5 lumbar-type vertebrae. Anatomic variant: None. Sign Board Erector (topogram) images: Unremarkable. Alignment: Trace degenerative lateral [...] and assume there are 5 lumbar-type vertebrae. Hand Inspector: PSCYomi Transcribe Date/Time: Mar 23 2024 11:38A Dictated by : AYDEN KUMARI MD This examination was interpreted and the report reviewed and electronically signed by: NAKIA CARRINGTON MD on Mar 23 2024 12:30PM EST [id number] Normal [facility] Magnesium SerPl-ncon 03-23 Magnesium [Mass/Vol] 2.1 mg/dL Normal 1.7-2.3 [facility] Comment on above: Order Comment: Speci men Type: BLOOD SPECIMENOrdering Facility: [facility] Address: [address] [place] [address] Performed By: #### 1 9123-9 ####[facility] LABCLIA [id number] [facility] [id number] [address] [place] Basic metabolic 2000 panelon 03-22-2024 Anion gap [Moles/Vol] 8 mmol/L Normal 8-15 [facility] Comment on above: Order Comment: Speci men Type: BLOOD SPECIMENOrdering Facility: [facility] Address: [address] [place] [address] Performed By: #### 2 4321-2 ####[facility] LABCLIA [id number] [address] [address] [place] Calcium [Mass/Vol] 8.8 mg/dL Normal 8.5-10.2 [facility] Comment on above: Order Comment: Speci men Type: BLOOD SPECIMENOrdering Facility: [facility] Address: [address] [place] [address] Performed By: #### 2 4321-2 ####[facility] LABCLIA [id number] [place] [address] [place] Chloride [Moles/Vol] 100 mmol/L Normal 98-107 [facility] Comment on above: Order Comment: Speci men Type: BLOOD SPECIMENOrdering Facility: [facility] Address: [address] [place] [address] Performed By: #### 2 4321-2 ####[facility] LABCLIA [id number] [place] [address] [place] CO2 [Moles/Vol] 25 mmol/L Normal 22-30 [facility] Comment on above: Order Comment: Speci men Type: BLOOD SPECIMENOrdering Facility: [facility] Address: [address] [place] [address] Performed By: #### 2 4321-2 ####[facility] LABCLIA [id number] [place] [id number] [place] Creatinine [Mass/Vol] 0.85 mg/dL Normal 0.73-1.22 [facility] Comment on above: Order Comment: Speci men Type: BLOOD SPECIMENOrdering Facility: [facility] Address: [address] [place] [address] Performed By: #### 2 4321-2 ####[facility] LABCLIA [id number] [place] [address] [place] Creatinine and Glomerular filtration rate.predicted panel (S/P/Bld) 101 mL/min/1.73m??? Normal >=60 [facility] Comment on above: Order Comment: Rosalie best Type: BLOOD SPECIMENOrdering Facility: [facility] Address: [address] [place] [address] Result Comment: Lia mated Glomerular Filtration Rate [...] actual GFR. Performed By: #### 2 4321-2 ####[facility] LABIA [id number] [place] [address] [place] Glucose [Mass/Vol] 103 mg/dL High 74-99 [facility] Comment on above: Order Comment: Rosalie best Type: BLOOD SPECIMENOrdering Facility: [facility] Address: [address] [place] [address] Result Comment: The [place] [employer] (ADA) provides guidance for cutoff [...] Standards of Medical Care in Diabetes 2016, [place] [employer]. Diabetes Care. 2016.39(Suppl 1). Performed By: #### 2 4321-2 ####[facility] LABCLIA [id number] [place] [address] [place] Potassium [Moles/Vol] 4.5 mmol/L Normal 3.7-5.1 [facility] Comment on above: Order Comment: Speci men Type: BLOOD SPECIMENOrdering Facility: [facility] Address: [address] [place] [address] Performed By: #### 2 4321-2 ####[facility] LABCLIA [id number] [place] [address] [place] Sodium [Moles/Vol] 133 mmol/L Low 136-144 [facility] Comment on above: Order Comment: Speci men Type: BLOOD SPECIMENOrdering Facility: [facility] Address: [address] [place] [address] Performed By: #### 2 4321-2 ####[facility] LABCLIA [id number] [place] [address] [place] Urea nitrogen [Mass/Vol] 12 mg/dL Normal 9-24 [facility] Comment on above: Order Comment: Speci men Type: BLOOD SPECIMENOrdering Facility: [facility] Address: [address] [place] [address] Performed By: #### 2 4321-2 ####[facility] LABCLIA [id number] [place] [address] [place] Anion gap [Moles/Vol] 10 mmol/L Normal 8-15 [facility] Comment on above: Order Comment: Speci men Type: BLOOD SPECIMENOrdering Facility: [facility] Address: [address] [place] [address] Performed By: #### 2 4321-2 ####[facility] LABCLIA [id number] [place] [address] [place] Calcium [Mass/Vol] 8.6 mg/dL Normal 8.5-10.2 [facility] Comment on above: Order Comment: Speci men Type: BLOOD SPECIMENOrdering Facility: [facility] Address: [address] [place] [id number] Performed By: #### 2 4321-2 ####[facility] LABCLIA [id number] [place] [id number] [place] Chloride [Moles/Vol] 100 mmol/L Normal 98-107 [facility] Comment on above: Order Comment: Speci men Type: BLOOD SPECIMENOrdering Facility: [facility] Address: [address] [place] [address] Performed By: #### 2 4321-2 ####[facility] LABCLIA [id number] [place] [address] [place] CO2 [Moles/Vol] 25 mmol/L Normal 22-30 [facility] Comment on above: Order Comment: Speci men Type: BLOOD SPECIMENOrdering Facility: [facility] Address: [address] [place] [address] Performed By: #### 2 4321-2 ####[facility] LABCLIA [id number] [place] [address] [place] Creatinine [Mass/Vol] 0.78 mg/dL Normal 0.73-1.22 [facility] Comment on above: Order Comment: Speci men Type: BLOOD SPECIMENOrdering Facility: [facility] Address: [address] [place] [address] Performed By: #### 2 4321-2 ####[facility] LABCLIA [id number] [place] [address] [place] Creatinine and Glomerular filtration rate.predicted panel (S/P/Bld) 104 mL/min/1.73m??? Normal >=60 [facility] Comment on above: Order Comment: Speci men Type: BLOOD SPECIMENOrdering Facility: [facility] Address: [address] [place] [address] Result Comment: Lia mated Glomerular Filtration Rate [...] actual GFR. Performed By: #### 2 4321-2 ####[facility] LABCLIA [id number] [place] [address] [place] Glucose [Mass/Vol] 110 mg/dL High 74-99 [facility] Comment on above: Order Comment: Specsherley best Type: BLOOD SPECIMENOrdering Facility: [facility] Address: [address] [place] [address] Result Comment: The [place] Diabetes [employer] (ADA) provides guidance for cutoff [...] Standards of Medical Care in Diabetes 2016, [place] [employer]. Diabetes Care. 2016.39(Suppl 1). Performed By: #### 2 4321-2 ####[facility] LABCLIA [id number] [place] [id number] [place] Potassium [Moles/Vol] 4.3 mmol/L Normal 3.7-5.1 [facility] Comment on above: Order Comment: Specsherley best Type: BLOOD SPECIMENOrdering Facility: [facility] Address: [address] [place] [address] Performed By: #### 2 4321-2 ####[facility] LABCLIA [id number] [address] [address] [place] Sodium [Moles/Vol] 135 mmol/L Low 136-144 [facility] Comment on above: Order Comment: Speci men Type: BLOOD SPECIMENOrdering Facility: [facility] Address: [address] [place] [id number] Performed By: #### 2 4321-2 ####[facility] LABCLIA [id number] [place] [id number] [place] Urea nitrogen [Mass/Vol] 13 mg/dL Normal 9-24 [facility] Comment on above: Order Comment: Speci men Type: BLOOD SPECIMENOrdering Facility: [facility] Address: [address] [place] [address] Performed By: #### 2 4321-2 ####[facility] LABCLIA [id number] [place] [address] [place] Anion gap [Moles/Vol] 9 mmol/L Normal 8-15 [facility] Comment on above: Order Comment: Speci men Type: BLOOD SPECIMENOrdering Facility: [facility] Address: [address] [place] [address] Performed By: #### 2 4321-2 ####[facility] LABCLIA [id number] [place] [address] [place] Calcium [Mass/Vol] 8.2 mg/dL Low 8.5-10.2 [facility] Comment on above: Order Comment: Speci men Type: BLOOD SPECIMENOrdering Facility: [facility] Address: [address] [place], [place] [address] Performed By: #### 2 4321-2 ####[facility] LABCLIA [id number] [place] [id number] [place] Chloride [Moles/Vol] 95 mmol/L Low 98-107 [facility] Comment on above: Order Comment: Speci men Type: BLOOD SPECIMENOrdering Facility: [facility] Address: [address] [place], [place] [id number] Performed By: #### 2 4321-2 ####[facility] LABCLIA [id number] [place] [address] [place] CO2 [Moles/Vol] 23 mmol/L Normal 22-30 [facility] Comment on above: Order Comment: Speci men Type: BLOOD SPECIMENOrdering Facility: [facility] Address: [address] [place] [address] Performed By: #### 2 4321-2 ####[facility] [id number] [place] [address] [place] Creatinine [Mass/Vol] 0.76 mg/dL Normal 0.73-1.22 [facility] Comment on above: Order Comment: Speci men Type: BLOOD SPECIMENOrdering Facility: [facility] Address: [address] [place] [address] Performed By: #### 2 4321-2 ####[facility] [id number] [place] [address] [place] Creatinine and Glomerular filtration rate.predicted panel (S/P/Bld) 105 mL/min/1.73m??? Normal >=60 [facility] Comment on above: Order Comment: Speci men Type: BLOOD SPECIMENOrdering Facility: [facility] Address: [address] [place] [address] Result Comment: Lia mated Glomerular Filtration Rate [...] actual GFR. Performed By: #### 2 4321-2 ####[facility] [facility] [id number] [place] [address] [place] Glucose [Mass/Vol] 88 mg/dL Normal 74-99 [facility] Comment on above: Order Comment: Speci men Type: BLOOD SPECIMENOrdering Facility: [facility] Address: [address] [place] [address] Result Comment: The [place] [employer] (ADA) provides guidance for cutoff [...] Standards of Medical Care in Diabetes 2016, [place] [employer]. Diabetes Care. 2016.39(Suppl 1). Performed By: #### 2 4321-2 ####[facility] [id number] [place] [address] [place] Potassium [Moles/Vol] 4.6 mmol/L Normal 3.7-5.1 [facility] Comment on above: Order Comment: Speci men Type: BLOOD SPECIMENOrdering Facility: [facility] Address: [address] [place] [address] Performed By: #### 2 432-2 ####[facility] [id number] [place] [address] [place] Sodium [Moles/Vol] 127 mmol/L Low 136-144 [facility] Comment on above: Order Comment: Speci men Type: BLOOD SPECIMENOrdering Facility: [facility] Address: [address] [place] [id number] Performed By: #### 2 4321-2 ####[facility] [id number] [place] [address] [place] Urea nitrogen [Mass/Vol] 13 mg/dL Normal 9-24 [facility] Comment on above: Order Comment: Speci men Type: BLOOD SPECIMENOrdering Facility: [facility] Address: [address] [id number] Performed By: #### 2 4321-2 ####[facility] [id number] [address] [address] [place] Anion gap [Moles/Vol] 9 mmol/L Normal 8-15 [facility] Comment on above: Order Comment: Speci men Type: BLOOD SPECIMENOrdering Facility: [facility] Address: [address] [place] [address] Performed By: #### 2 4321-2, ####[facility] [id number] [place] [id number] [place] Calcium [Mass/Vol] 8.4 mg/dL Low 8.5-10.2 [facility] Comment on above: Order Comment: Speci men Type: BLOOD SPECIMENOrdering Facility: [facility] Address: [address] [place] [address] Performed By: #### 2 2, ####[facility] [id number] [place] [id number] [place] Chloride [Moles/Vol] 93 mmol/L Low 98-107 [facility] Comment on above: Order Comment: Speci men Type: BLOOD SPECIMENOrdering Facility: [facility] Address: [address] [place] [address] Performed By: #### 2 432-2, ####[facility] [id number] [place] [id number] [place] CO2 [Moles/Vol] 24 mmol/L Normal 22-30 [facility] Comment on above: Order Comment: Speci men Type: BLOOD SPECIMENOrdering Facility: [facility] Address: [address] [place], [place] [address] Performed By: #### 2 4321-2, ####[facility] [id number] [place] [id number] [place] Creatinine [Mass/Vol] 0.74 mg/dL Normal 0.73-1.22 [facility] Comment on above: Order Comment: Rosalie best Type: BLOOD SPECIMENOrdering Facility: [facility] Address: [address] [place] [address] Performed By: #### 2 4321-2, ####[facility] [id number] [place] [address] [place] Creatinine and Glomerular filtration rate.predicted panel (S/P/Bld) 106 mL/min/1.73m??? Normal >=60 [facility] Comment on above: Order Comment: Rosalie best Type: BLOOD SPECIMENOrdering Facility: [facility] Address: [address] [place] [address] Result Comment: Lia mated Glomerular Filtration Rate [...] reflect actual GFR. Performed By: #### 2 4321-, ####[facility] [id number] [place] [address] [place] Glucose [Mass/Vol] 101 mg/dL High 74-99 [facility] Comment on above: Order Comment: Rosalie best Type: BLOOD SPECIMENOrdering Facility: [facility] Address: [address] [place] [address] Result Comment: The [place] Diabetes Association (ADA) provides guidance for cutoff [...] Standards of Medical Care in Diabetes 2016, [place] [employer]. Diabetes Care. 2016.39(Suppl 1). Performed By: #### 2 4320-2, ####[facility] [id number] [address] [address] [place] Potassium [Moles/Vol] 4.7 mmol/L Normal 3.7-5.1 [facility] Comment on above: Order Comment: Speci men Type: BLOOD SPECIMENOrdering Facility: [facility] Address: [address] [place] [address] Performed By: #### 2 4320-09, ####[facility] [id number] [place] [address] [place] Sodium [Moles/Vol] 126 mmol/L Low 136-144 [facility] Comment on above: Order Comment: Speci men Type: BLOOD SPECIMENOrdering Facility: [facility] Address: [address] [id number] Performed By: #### 2 4320-09, ####[facility] [id number] [place] [address] [place] Urea nitrogen [Mass/Vol] 15 mg/dL Normal 9-24 [facility] Comment on above: Order Comment: Speci men Type: BLOOD SPECIMENOrdering Facility: [facility] Address: [address] [place] [address] Performed By: #### 2 2, ####[facility] [id number] [place] [id number] [place] Anion gap [Moles/Vol] 8 mmol/L Normal 8-15 [facility] Comment on above: Order Comment: Speci men Type: BLOOD SPECIMENOrdering Facility: [facility] Address: [address] [phone] Performed By: #### 2 4321-2 ####[facility] [id number] [place] [address] [place] Calcium [Mass/Vol] 8.5 mg/dL Normal 8.5-10.2 [facility] Comment on above: Order Comment: Speci men Type: BLOOD SPECIMENOrdering Facility: [facility] Address: [address] [place] [address] Performed By: #### 2 4321-2 ####[facility] [id number] [place] [address] [place] Chloride [Moles/Vol] 91 mmol/L Low 98-107 [facility] Comment on above: Order Comment: Speci men Type: BLOOD SPECIMENOrdering Facility: [facility] Address: [address] [place] [address] Performed By: #### 2 4321-2 ####[facility] [id number] [place] [address] [place] CO2 [Moles/Vol] 24 mmol/L Normal 22-30 [facility] Comment on above: Order Comment: Speci men Type: BLOOD SPECIMENOrdering Facility: [facility] Address: [address] [place] [address] Performed By: #### 2 4321-2 ####[facility]CL[facility] [id number] [place] [address] [place] Creatinine [Mass/Vol] 0.80 mg/dL Normal 0.73-1.22 [facility] Comment on above: Order Comment: Speci men Type: BLOOD SPECIMENOrdering Facility: [facility] Address: [address] [place] [address] Performed By: #### 2 4321-2 ####[facility] [id number] [place] [address] [place] Creatinine and Glomerular filtration rate.predicted panel (S/P/Bld) 103 mL/min/1.73m??? Normal >=60 [facility] Comment on above: Order Comment: Rosalie best Type: BLOOD SPECIMENOrdering Facility: [facility] Address: [address] [place] [address] Result Comment: Lia mated Glomerular Filtration Rate [...] actual GFR. Performed By: #### 2 4321-2 ####[facility] LAB[facility] [id number] [place] [address] [place] Glucose [Mass/Vol] 111 mg/dL High 74-99 [facility] Comment on above: Order Comment: Rosalie best Type: BLOOD SPECIMENOrdering Facility: [facility] Address: [address] [place] [address] Result Comment: The [place] [employer] (ADA) provides guidance for cutoff [...] Standards of Medical Care in Diabetes 2016, [place] [employer]. Diabetes Care. 2016.39(Suppl 1). Performed By: #### 2 4321-2 ####[facility] [id number] [place] [address] [place] Potassium [Moles/Vol] 4.7 mmol/L Normal 3.7-5.1 [facility] Comment on above: Order Comment: Speci men Type: BLOOD SPECIMENOrdering Facility: [facility] Address: [address] [place] [address] Performed By: #### 2 4321-2 ####[facility] [id number] [place] [id number] [place] Sodium [Moles/Vol] 123 mmol/L Low 136-144 [facility] Comment on above: Order Comment: Speci men Type: BLOOD SPECIMENOrdering Facility: [facility] Address: [address] [place] [address] Performed By: #### 2 4321-2 ####[facility] [id number] [place] [address] [place] Urea nitrogen [Mass/Vol] 15 mg/dL Normal 9-24 [facility] Comment on above: Order Comment: Speci men Type: BLOOD SPECIMENOrdering Facility: [facility] Address: [address] [place] [address] Performed By: #### 2 4321-2 ####[facility]CL[facility] [id number] [address] [place] CASE MANAGEMon 03-22-2024 CASE MANAGEM HNO ID: [id number] Author: HERACLIO KAUR LISW Service: ? 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 SIGNATURE: MONE Desai PATIENT NAME: Enrrique Madera DATE: March 22, 2024 TIME: 8:42 AM PAGER/CONTACT #: [phone] Normal [facility] CBC panel Auto (Bld)on 03-22 Erythrocyte distribution width (RBC) [Ratio] 13.5 % Normal 11.5-15.0 [facility] Comment on above: Order Comment: Speci men Type: BLOOD SPECIMENOrdering Facility: [facility] Address: [address] [place] [address] Performed By: #### 5 8410-2 ####[facility]CL[facility] [id number] [place] [address] [place] Hematocrit (Bld) [Volume fraction] 40.4 % Normal 39.0-51.0 [facility] Comment on above: Order Comment: Speci men Type: BLOOD SPECIMENOrdering Facility: [facility] Address: [address] [place] [address] Performed By: #### 5 8410-2 ####[facility] [id number] [place] [address] [place] Hemoglobin (Bld) [Mass/Vol] 14.1 g/dL Normal 13.0-17.0 [facility] Comment on above: Order Comment: Speci men Type: BLOOD SPECIMENOrdering Facility: [facility] Address: [address] [place] [address] Performed By: #### 5 8410-2 ####[facility]CL[facility] [id number] [place] [address] [place] MCH (RBC) [Entitic mass] 30.8 pg Normal 26.0-34.0 [facility] Comment on above: Order Comment: Speci men Type: BLOOD SPECIMENOrdering Facility: [facility] Address: [address] [place] [address] Performed By: #### 5 8410-2 ####[facility]CLIA [id number] [place] [address] [place] MCHC (RBC) [Mass/Vol] 34.9 g/dL Normal 30.5-36.0 [facility] Comment on above: Order Comment: Speci men Type: BLOOD SPECIMENOrdering Facility: [facility] Address: [address] [place] [address] Performed By: #### 5 8410-2 ####[facility] LABCLIA [id number] [place] [address] [place] MCV (RBC) [Entitic vol] 88.2 fL Normal 80.0-100.0 [facility] Comment on above: Order Comment: Speci men Type: BLOOD SPECIMENOrdering Facility: [facility] Address: [address] [place] [address] Performed By: #### 5 8410-2 ####[facility]CLIA [id number] [place] [address] [place] Nucleated RBC (Bld) [#/Vol] 10*3/uL Normal <0.01 [facility] Comment on above: Order Comment: Speci men Type: BLOOD SPECIMENOrdering Facility: [facility] Address: [address] [place] [address] Performed By: #### 5 8410-2 ####[facility] LABCLIA [id number] [place] [address] [place] Platelet mean volume (Bld) [Entitic vol] 9.3 fL Normal 9.0-12.7 [facility] Comment on above: Order Comment: Speci men Type: BLOOD SPECIMENOrdering Facility: [facility] Address: [address] [place] [address] Performed By: #### 5 8410-2 ####[facility] LABCLIA [id number] [place] [address] [place] Platelets (Bld) [#/Vol] 265 10*3/uL Normal 150-400 [facility] Comment on above: Order Comment: Speci men Type: BLOOD SPECIMENOrdering Facility: [facility] Address: [address] [place] [address] Performed By: #### 5 8410-2 ####[facility] LABCLIA [id number] [place] [address] [place] RBC (Bld) [#/Vol] 4.58 10*6/uL Normal 4.20-6.00 [facility] Comment on above: Order Comment: Speci men Type: BLOOD SPECIMENOrdering Facility: [facility] Address: [address] [place] [address] Performed By: #### 5 8410-2 ####[facility] LABIA [id number] [place] [address] [place] WBC (Bld) [#/Vol] 15.04 10*3/uL High 3.70-11.00 [facility] Comment on above: Order Comment: Speci men Type: BLOOD SPECIMENOrdering Facility: [facility] Address: [address] [place] [address] Performed By: #### 5 8410-2 ####[facility] LABCLIA [id number] [place] [address] [place] CONSULT PROGon 03-22-2024 CONSULT PROG HNO ID: [id number] Author: JEFERSON CAMPBELL MD Service: Nephrology Author [...] 22, 2024 (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 Normal [facility] Magnesium SerPl-mCncon 03-22 Magnesium [Mass/Vol] 2.2 mg/dL Normal 1.7-2.3 [facility] Comment on above: Order Comment: Speci men Type: BLOOD SPECIMENOrdering Facility: [facility] Address: [address] [place] [address] Performed By: #### 2 4321-2, 66352-8 ####[facility] LABIA [id number] [place] [address] [place] Basic metabolic 2000 panelon 03-21-2024 Anion gap [Moles/Vol] 8 mmol/L Normal 8-15 [facility] Comment on above: Order Comment: Speci men Type: BLOOD SPECIMENOrdering Facility: [facility] Address: [address] [place] [address] Performed By: #### 2 4321-2 ####[facility] LABCLIA [id number] [place] [address] [place] Calcium [Mass/Vol] 8.5 mg/dL Normal 8.5-10.2 [facility] Comment on above: Order Comment: Speci men Type: BLOOD SPECIMENOrdering Facility: [facility] Address: [address] [place] [address] Performed By: #### 2 4321-2 ####[facility] LABCLIA [id number] [place] [address] [place] Chloride [Moles/Vol] 87 mmol/L Low 98-107 [facility] Comment on above: Order Comment: Speci men Type: BLOOD SPECIMENOrdering Facility: [facility] Address: [address] [place] [address] Performed By: #### 2 4321-2 ####[facility] LABIA [id number] [place] [address] [place] CO2 [Moles/Vol] 25 mmol/L Normal 22-30 [facility] Comment on above: Order Comment: Speci men Type: BLOOD SPECIMENOrdering Facility: [facility] Address: [address] [place] [address] Performed By: #### 2 4321-2 ####[facility] LABIA [id number] [place] [address] [place] Creatinine [Mass/Vol] 0.80 mg/dL Normal 0.73-1.22 [facility] Comment on above: Order Comment: Speci men Type: BLOOD SPECIMENOrdering Facility: [facility] Address: [address] [place] [address] Performed By: #### 2 4321-2 ####[facility] LABIA [id number] [place] [address] [place] Creatinine and Glomerular filtration rate.predicted panel (S/P/Bld) 103 mL/min/1.73m??? Normal >=60 [facility] Comment on above: Order Comment: Speci men Type: BLOOD SPECIMENOrdering Facility: [facility] Address: [address] [place] [address] Result Comment: Lia mated Glomerular Filtration Rate [...] actual GFR. Performed By: #### 2 4321-2 ####[facility] LABCLIA [id number] [place] [address] [place] Glucose [Mass/Vol] 109 mg/dL High 74-99 [facility] Comment on above: Order Comment: Speci men Type: BLOOD SPECIMENOrdering Facility: [facility] Address: [address] [place] [address] Result Comment: The [place] [employer] (ADA) provides guidance for cutoff [...] Standards of Medical Care in Diabetes 2016, [place] [employer]. Diabetes Care. 2016.39(Suppl 1). Performed By: #### 2 4321-2 ####[facility] LABIA [id number] [place] [id number] [place] Potassium [Moles/Vol] 4.8 mmol/L Normal 3.7-5.1 [facility] Comment on above: Order Comment: Nancii men Type: BLOOD SPECIMENOrdering Facility: [facility] Address: [address] [place] [address] Performed By: #### 2 4321-2 ####[facility] LABIA [id number] [place] [id number] [place] Sodium [Moles/Vol] 120 mmol/L Low 136-144 [facility] Comment on above: Order Comment: Speci men Type: BLOOD SPECIMENOrdering Facility: [facility] Address: [address] [id number] Performed By: #### 2 4321-2 ####[facility] LABCLIA [id number] [place] [address] [place] Urea nitrogen [Mass/Vol] 15 mg/dL Normal 9-24 [facility] Comment on above: Order Comment: Speci men Type: BLOOD SPECIMENOrdering Facility: [facility] Address: [address] [place] [address] Performed By: #### 2 4321-2 ####[facility] LABCLIA [id number] [place] [address] [place] Anion gap [Moles/Vol] 6 mmol/L Low 8-15 [facility] Comment on above: Order Comment: Speci men Type: BLOOD SPECIMENOrdering Facility: [facility] Address: [address] [place] [address] Performed By: #### 2 4321-2 ####[facility] LABCLIA [id number] [place] [address] [place] Calcium [Mass/Vol] 8.5 mg/dL Normal 8.5-10.2 [facility] Comment on above: Order Comment: Speci men Type: BLOOD SPECIMENOrdering Facility: [facility] Address: [address] [place], [place] [address] Performed By: #### 2 4321-2 ####[facility] LABCLIA [id number] [place] [id number] [place] Chloride [Moles/Vol] 86 mmol/L Low 98-107 [facility] Comment on above: Order Comment: Speci men Type: BLOOD SPECIMENOrdering Facility: [facility] Address: [address] [place], [place] [address] Performed By: #### 2 4321-2 ####[facility] LABCLIA [id number] [place] [address] [place] CO2 [Moles/Vol] 28 mmol/L Normal 22-30 [facility] Comment on above: Order Comment: Speci men Type: BLOOD SPECIMENOrdering Facility: [facility] Address: [address] [place] [address] Performed By: #### 2 4321-2 ####[facility] LABCLIA [id number] [place] [address] [place] Creatinine [Mass/Vol] 0.80 mg/dL Normal 0.73-1.22 [facility] Comment on above: Order Comment: Speci men Type: BLOOD SPECIMENOrdering Facility: [facility] Address: [address] [place] [address] Performed By: #### 2 4321-2 ####[facility] LABCLIA [id number] [address] [place] OF [facility] Creatinine and Glomerular filtration rate.predicted panel (S/P/Bld) 103 mL/min/1.73m??? Normal >=60 [facility] Comment on above: Order Comment: Speci men Type: BLOOD SPECIMENOrdering Facility: [facility] Address: [address] [place] [address] Result Comment: Lia mated Glomerular Filtration Rate [...] actual GFR. Performed By: #### 2 4321-2 ####[facility] LABCLIA [id number] [place] [address] [place] Glucose [Mass/Vol] 87 mg/dL Normal 74-99 [facility] Comment on above: Order Comment: Speci men Type: BLOOD SPECIMENOrdering Facility: [facility] Address: [address] [place] [address] Result Comment: The [place] [employer] (ADA) provides guidance for cutoff [...] Standards of Medical Care in Diabetes 2016, [place] [employer]. Diabetes Care. 2016.39(Suppl 1). Performed By: #### 2 4321-2 ####[facility] LABCLIA [id number] [place] [address] [place] Potassium [Moles/Vol] 4.8 mmol/L Normal 3.7-5.1 [facility] Comment on above: Order Comment: Speci men Type: BLOOD SPECIMENOrdering Facility: [facility] Address: [address] [place] [address] Performed By: #### 2 4321-2 ####[facility] LABCLIA [id number] [place] [address] [place] Sodium [Moles/Vol] 120 mmol/L Low 136-144 [facility] Comment on above: Order Comment: Speci men Type: BLOOD SPECIMENOrdering Facility: [facility] Address: [address] [place] [address] Performed By: #### 2 4321-2 ####[facility] LABCLIA [id number] [place] [address] [place] Urea nitrogen [Mass/Vol] 14 mg/dL Normal 9-24 [facility] Comment on above: Order Comment: Speci men Type: BLOOD SPECIMENOrdering Facility: [facility] Address: [address] [place] [address] Performed By: #### 2 4321-2 ####[facility] [facility] LABCLIA [id number] [place] [address] [place] Anion gap [Moles/Vol] 11 mmol/L Normal 8-15 [facility] Comment on above: Order Comment: Speci men Type: BLOOD SPECIMENOrdering Facility: [facility] Address: [address] [place] [address] Performed By: #### 3 016-3, 19345-2 ####[facility] LABCLIA [id number] [place] [address] [place] Calcium [Mass/Vol] 8.6 mg/dL Normal 8.5-10.2 [facility] [place] Comment on above: Order Comment: Speci men Type: BLOOD SPECIMENOrdering Facility: [facility] Address: [address] [place] [address] Performed By: #### 3 016-3, 35988-4 ####[facility] LABCLIA [id number] [place] [address] [place] Chloride [Moles/Vol] 88 mmol/L Low 98-107 [facility] Comment on above: Order Comment: Speci men Type: BLOOD SPECIMENOrdering Facility: [facility] Address: [address] [place] [address] Performed By: #### 3 016-3, 46149-8 ####[facility] LABCLIA [id number] [place] [address] [place] CO2 [Moles/Vol] 24 mmol/L Normal 22-30 [facility] Comment on above: Order Comment: Speci men Type: BLOOD SPECIMENOrdering Facility: [facility] Address: [address] [place] [address] Performed By: #### 3 016-3, 79968-7 ####[facility] LABCLIA [id number] [place] [address] [place] Creatinine [Mass/Vol] 0.81 mg/dL Normal 0.73-1.22 [facility] Comment on above: Order Comment: Rosalie best Type: BLOOD SPECIMENOrdering Facility: [facility] Address: [address] [place] [address] Performed By: #### 3 016-3, 57776-0 ####[facility] LABCLIA [id number] [place] [address] [place] Creatinine and Glomerular filtration rate.predicted panel (S/P/Bld) 103 mL/min/1.73m??? Normal >=60 [facility] Comment on above: Order Comment: Rosalie best Type: BLOOD SPECIMENOrdering Facility: [facility] Address: [address] [place] [address] Result Comment: Lia mated Glomerular Filtration Rate [...] accurately reflect actual GFR. Performed By: #### 3 016-3, 13373-3 ####[facility] LABCLIA [id number] [place] [address] [place] Glucose [Mass/Vol] 90 mg/dL Normal 74-99 [facility] [place] Comment on above: Order Comment: Rosalie best Type: BLOOD SPECIMENOrdering Facility: [facility] Address: [address] [place] [address] Result Comment: The [place] [employer] (ADA) provides guidance for cutoff [...] Standards of Medical Care in Diabetes 2016, [place] [employer]. Diabetes Care. 2016.39(Suppl 1). Performed By: #### 3 016-3, 34729-9 ####[facility] LABCLIA [id number] [place] [address] [place] Potassium [Moles/Vol] 4.8 mmol/L Normal 3.7-5.1 [facility] Comment on above: Order Comment: Speci men Type: BLOOD SPECIMENOrdering Facility: [facility] Address: [address] [place] [address] Performed By: #### 3 016-3, 77887-7 ####[facility] LABIA [id number] [place] [address] [place] Sodium [Moles/Vol] 123 mmol/L Low 136-144 [facility] [place] Comment on above: Order Comment: Speci men Type: BLOOD SPECIMENOrdering Facility: [facility] Address: [address] [place] [address] Performed By: #### 3 016-3, 00437-7 ####[facility] LABIA [id number] [place] [address] [place] Urea nitrogen [Mass/Vol] 16 mg/dL Normal 9-24 [facility] Comment on above: Order Comment: Speci men Type: BLOOD SPECIMENOrdering Facility: [facility] Address: [address] [place] [address] Performed By: #### 3 016-3, 53176-0 ####[facility] LABIA [id number] [place] [id number] [place] CBC panel Auto (Bld)on 03-21 Erythrocyte distribution width (RBC) [Ratio] 13.8 % Normal 11.5-15.0 [facility] Comment on above: Order Comment: Speci men Type: BLOOD SPECIMENOrdering Facility: [facility] Address: [address] [place] [address] Performed By: #### 5 8410-2 ####[facility] LABIA [id number] [place] [address] [place] Hematocrit (Bld) [Volume fraction] 42.4 % Normal 39.0-51.0 [facility] Comment on above: Order Comment: Speci men Type: BLOOD SPECIMENOrdering Facility: [facility] Address: [address] [place] [address] Performed By: #### 5 8410-2 ####[facility] LABIA [id number] [place] [address] [place] Hemoglobin (Bld) [Mass/Vol] 14.7 g/dL Normal 13.0-17.0 [facility] Comment on above: Order Comment: Speci men Type: BLOOD SPECIMENOrdering Facility: [facility] Address: [address] [place] [address] Performed By: #### 5 8410-2 ####[facility] [id number] [place] [address] [place] MCH (RBC) [Entitic mass] 31.1 pg Normal 26.0-34.0 [facility] Comment on above: Order Comment: Speci men Type: BLOOD SPECIMENOrdering Facility: [facility] Address: [address] [place] [address] Performed By: #### 5 8410-2 ####[facility] LABIA [id number] [place] [address] [place] MCHC (RBC) [Mass/Vol] 34.7 g/dL Normal 30.5-36.0 [facility] Comment on above: Order Comment: Speci men Type: BLOOD SPECIMENOrdering Facility: [facility] Address: [address] [place] [address] Performed By: #### 5 8410-2 ####[facility] LABIA [id number] [place] [address] [place] MCV (RBC) [Entitic vol] 89.6 fL Normal 80.0-100.0 [facility] Comment on above: Order Comment: Speci men Type: BLOOD SPECIMENOrdering Facility: [facility] Address: [address] [place] [address] Performed By: #### 5 8410-2 ####[facility] LABCLIA [id number] [place] [address] [place] Nucleated RBC (Bld) [#/Vol] 10*3/uL Normal <0.01 [facility] Comment on above: Order Comment: Speci men Type: BLOOD SPECIMENOrdering Facility: [facility] Address: [address] [place] [address] Performed By: #### 5 8410-2 ####[facility] LABCLIA [id number] [place] [address] [place] Platelet mean volume (Bld) [Entitic vol] 9.2 fL Normal 9.0-12.7 [facility] Comment on above: Order Comment: Speci men Type: BLOOD SPECIMENOrdering Facility: [facility] Address: [address] [place] [address] Performed By: #### 5 8410-2 ####[facility] LABIA [id number] [place] [address] [place] Platelets (Bld) [#/Vol] 288 10*3/uL Normal 150-400 [facility] Comment on above: Order Comment: Speci men Type: BLOOD SPECIMENOrdering Facility: [facility] Address: [address] [place] [address] Performed By: #### 5 8410-2 ####[facility] LABCLIA [id number] [place] [address] [place] RBC (Bld) [#/Vol] 4.73 10*6/uL Normal 4.20-6.00 [facility] Comment on above: Order Comment: Speci men Type: BLOOD SPECIMENOrdering Facility: [facility] Address: [address] [place] [id number] Performed By: #### 5 8410-2 ####[facility] LABIA [id number] [place] [id number] [place] WBC (Bld) [#/Vol] 11.67 10*3/uL High 3.70-11.00 [facility] Comment on above: Order Comment: Speci men Type: BLOOD SPECIMENOrdering Facility: [facility] Address: [address] [place] [id number] Performed By: #### 5 8410-2 ####[facility] LABIA [id number] [place] [id number] [facility] [place] CONSULTon 03-21-2024 CONSULT HNO ID: [id number] Author: JEFERSON CAMPBELL MD Service: Nephrology Author Type: Physician Type: Consults Filed: 03/22/2024 16:13 Note Text: [facility] DEPARTMENT OF KIDNEY MEDICINE INITIAL CONSULT NOTE ADMIT DATE: 03/19/2024 SERVICE DATE: 03/21/2024 SERVICE TIME: 4:47 PM REASON FOR CONSULT I am asked to see this patient in consultation for my opinion regarding acute hyponatremia. PRIMARY CARE PHYSICIAN Hany Olivares MD HPI: Mr. Madera is a 58 [...] Comment: Added automatically from request for surgery [id number] 03/01/2024: Chronic pain 03/01/2024: Depressive disorder 03/01/2024: [...] and No (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 Normal [facility] Consultation/Specialist Note on 03-21-2024 Consultation/Speciali st Note [id number]#[id number] FF Normal [facility] Osmolality SerPlon Osmolality [Osmolality] 253 mosm/kg Low 275-300 [facility] Comment on above: Order Comment: Speci men Type: BLOOD SPECIMENOrdering Facility: [facility] Address: [address] [place] [address] Performed By: #### 2 692-2 ####[facility] LABCLIA [id number] [place] [address] [place] Osmolality Uron 03-21-2024 Osmolality (U) [Osmolality] 191 mosm/kg Normal 50-1200 [facility] Comment on above: Order Comment: Speci men Type: URINE SPECIMENOrdering Facility: [facility] Address: [address] [place] [address] Performed By: #### 2 695-5 ####[facility] [id number] [place] [address] [place] Sodium ?Tm Ur-sCncon 024 Sodium Unsp time (U) [Moles/Vol] <20 Normal 14-216 [facility] Comment on above: Order Comment: Speci men Type: URINE SPECIMENOrdering Facility: [facility] Address: [address] [place] [address] Result Comment: Resu lt rechecked. Performed By: #### 3 5678-2 ####[facility] LABIA [id number] [place] [address] [place] TSH SerPl-aCncon 03-21-2024 TSH Qn 2.890 m[IU]/L Normal 0.270-4.200 [facility] Comment on above: Order Comment: Speci men Type: BLOOD SPECIMENOrdering Facility: [facility] Address: [address] [place] [address] Performed By: #### 3 016-3, 98535-2 ####[facility] LABIA [id number] [place] [address] [place] 25(OH)D3 SerPl-mCncon 2023 25-hydroxyvitamin D3 [Mass/Vol] 77.2 ng/mL Normal 31.0-80.0 [facility] Comment on above: Order Comment: Speci men Type: BLOOD SPECIMENOrdering Facility: [facility] Address: [address] [place] [address] Result Comment: Clas sification of 25 [place] Vitamin D status: Deficiency/Insufficiency: < or = 30 ng/ml. Sufficiency/Optimal Levels: 31-80 ng/mL Toxicity: > 100 ng/mL. Test performed by chemiluminescent immunoassay. Performed By: #### 1 989-3 ####[facility] LABCLIA [id number] [place] [address] [place] Basic metabolic 2000 panelon 03-20-2024 Anion gap [Moles/Vol] 13 mmol/L Normal 8-15 [facility] Comment on above: Order Comment: Speci men Type: BLOOD SPECIMENOrdering Facility: [facility] Address: [address] [place] [address] Performed By: #### 2 4321-2 ####[facility] LABIA [id number] [place] [address] [place] Calcium [Mass/Vol] 8.4 mg/dL Low 8.5-10.2 [facility] Comment on above: Order Comment: Speci men Type: BLOOD SPECIMENOrdering Facility: [facility] Address: [address] [place] [address] Performed By: #### 2 4321-2 ####[facility] LABCLIA [id number] [place] [address] [place] Chloride [Moles/Vol] 90 mmol/L Low 98-107 [facility] Comment on above: Order Comment: Speci men Type: BLOOD SPECIMENOrdering Facility: [facility] Address: [address] [place] [address] Performed By: #### 2 4321-2 ####[facility] LABCLIA [id number] [place] [id number] [place] CO2 [Moles/Vol] 24 mmol/L Normal 22-30 [facility] Comment on above: Order Comment: Speci men Type: BLOOD SPECIMENOrdering Facility: [facility] Address: [address] [place], [place] [address] Performed By: #### 2 4321-2 ####[facility] LABCLIA [id number] [address] [address] [place] Creatinine [Mass/Vol] 0.82 mg/dL Normal 0.73-1.22 [facility] Comment on above: Order Comment: Rosalie best Type: BLOOD SPECIMENOrdering Facility: [facility] Address: [address] [place] [address] Performed By: #### 2 4321-2 ####[facility] LABIA [id number] [place] [address] [place] Creatinine and Glomerular filtration rate.predicted panel (S/P/Bld) 102 mL/min/1.73m??? Normal >=60 [facility] Comment on above: Order Comment: Rosalie best Type: BLOOD SPECIMENOrdering Facility: [facility] Address: [address] [place] [address] Result Comment: Lia mated Glomerular Filtration Rate [...] actual GFR. Performed By: #### 2 4321-2 ####[facility] LABIA [id number] [place] [address] [place] Glucose [Mass/Vol] 104 mg/dL High 74-99 [facility] [place] Comment on above: Order Comment: Rosalie best Type: BLOOD SPECIMENOrdering Facility: [facility] Address: [address] [place] [address] Result Comment: The [place] [employer] (ADA) provides guidance for cutoff [...] Standards of Medical Care in Diabetes 2016, [place] [employer]. Diabetes Care. 2016.39(Suppl 1). Performed By: #### 2 4321-2 ####[facility] LABCLIA [id number] [place] [address] [place] Potassium [Moles/Vol] 4.6 mmol/L Normal 3.7-5.1 [facility] Comment on above: Order Comment: Speci men Type: BLOOD SPECIMENOrdering Facility: [facility] Address: [address] [place] [address] Performed By: #### 2 4321-2 ####[facility] LABIA [id number] [place] [address] [place] Sodium [Moles/Vol] 127 mmol/L Low 136-144 [facility] Comment on above: Order Comment: Speci men Type: BLOOD SPECIMENOrdering Facility: [facility] Address: [address] [place] [address] Performed By: #### 2 4321-2 ####[facility] LABIA [id number] [place] [address] [place] Urea nitrogen [Mass/Vol] 17 mg/dL Normal 9-24 [facility] Comment on above: Order Comment: Speci men Type: BLOOD SPECIMENOrdering Facility: [facility] Address: [address] [place] [address] Performed By: #### 2 4321-2 ####[facility] LABIA [id number] [place] [id number] [place] CASE MGT INIT ASSESon 2023 CASE MGT INIT ASSES HNO ID: [id number] Author: HERACLIO KAUR LISW Service: ? Author Type: Weatherization And Housing Inspector Type: Care Mgt Initial Assessment Filed: 03/20/2024 12:50 Note Text: CARE MANAGEMENT: ASSESSMENT AND DISCHARGE PLAN SERVICE DATE: March 20, 2024 SERVICE TIME: 12:47 PM PCP: Hany Olivares MD Primary Contact: Extended Emergency Contact Information [...] you manage to accomplish the following: Independent: Ambulation;Bathe/Shower;Dr ess;Meals/Meal Prep;Going to the bathroom;Medication Management;Transportation to appointments/community Current Services/Equipment Current Post-Acute Service(s): None Discharge Planning Patient Goal(s): Less pain [place] of Choice Explained: [place] of Choice Given: No Reason Not Given: [...] htn, brady Patient lives with spouse in [place] Patient states he has been able to manage ambulation and adls' independently No hc, dme or o2 cryptanalyst 6 click score is 24 and patient is on RA Plan per team, is pain control No skilled needs anticipated SIGNATURE: MONE Desai PATIENT NAME: Enrrique Madera DATE: March 20, 2024 TIME: 12:47 PM CONTACT #: [phone] Normal [facility] CBC panel Auto (Bld)on 03-20 Erythrocyte distribution width (RBC) [Ratio] 13.7 % Normal 11.5-15.0 [facility] Comment on above: Order Comment: Speci men Type: BLOOD SPECIMENOrdering Facility: [facility] Address: [address] [place] [address] Performed By: #### 5 8410-2 ####[facility] LABCLIA [id number] [place] [address] [place] Hematocrit (Bld) [Volume fraction] 40.4 % Normal 39.0-51.0 [facility] Comment on above: Order Comment: Speci men Type: BLOOD SPECIMENOrdering Facility: [facility] Address: [address] [place] [address] Performed By: #### 5 8410-2 ####[facility] LABIA [id number] [place] [address] [place] Hemoglobin (Bld) [Mass/Vol] 14.0 g/dL Normal 13.0-17.0 [facility] Comment on above: Order Comment: Speci men Type: BLOOD SPECIMENOrdering Facility: [facility] Address: [address] [place] [address] Performed By: #### 5 8410-2 ####[facility] LABIA [id number] [place] [address] [place] MCH (RBC) [Entitic mass] 30.6 pg Normal 26.0-34.0 [facility] Comment on above: Order Comment: Speci men Type: BLOOD SPECIMENOrdering Facility: [facility] Address: [address] [place] [address] Performed By: #### 5 8410-2 ####[facility] LABIA [id number] [place] [address] [place] MCHC (RBC) [Mass/Vol] 34.7 g/dL Normal 30.5-36.0 [facility] Comment on above: Order Comment: Speci men Type: BLOOD SPECIMENOrdering Facility: [facility] Address: [address] [place] [address] Performed By: #### 5 8410-2 ####[facility] LABIA [id number] [place] [address] [place] MCV (RBC) [Entitic vol] 88.4 fL Normal 80.0-100.0 [facility] Comment on above: Order Comment: Speci men Type: BLOOD SPECIMENOrdering Facility: [facility] Address: [address] [place] [address] Performed By: #### 5 8410-2 ####[facility] LABCLIA [id number] [place] [address] [place] Nucleated RBC (Bld) [#/Vol] 10*3/uL Normal <0.01 [facility] Comment on above: Order Comment: Speci men Type: BLOOD SPECIMENOrdering Facility: [facility] Address: [address] [place] [address] Performed By: #### 5 8410-2 ####[facility] LABCLIA [id number] [place] [address] [place] Platelet mean volume (Bld) [Entitic vol] 9.3 fL Normal 9.0-12.7 [facility] Comment on above: Order Comment: Speci men Type: BLOOD SPECIMENOrdering Facility: [facility] Address: [address] [place] [address] Performed By: #### 5 8410-2 ####[facility] LABIA [id number] [place] [address] [place] Platelets (Bld) [#/Vol] 263 10*3/uL Normal 150-400 [facility] Comment on above: Order Comment: Speci men Type: BLOOD SPECIMENOrdering Facility: [facility] Address: [address] [place] [address] Performed By: #### 5 8410-2 ####[facility] LABCLIA [id number] [place] [address] [place] RBC (Bld) [#/Vol] 4.57 10*6/uL Normal 4.20-6.00 [facility] Comment on above: Order Comment: Speci men Type: BLOOD SPECIMENOrdering Facility: [facility] Address: [address] [place] [id number] Performed By: #### 5 8410-2 ####[facility] LABCLIA [id number] [address] [address] [place] WBC (Bld) [#/Vol] 11.62 10*3/uL High 3.70-11.00 [facility] Comment on above: Order Comment: Speci men Type: BLOOD SPECIMENOrdering Facility: [facility] Address: [address] [place] [id number] Performed By: #### 5 8410-2 ####[facility] LABCLIA [id number] [address] [address] [place] CONSULTon 03-20-2024 CONSULT HNO ID: [id number] Author: MARCELINO PRADHAN PA-C Service: Pain Management Author Type: Physician Dental Appliance Mechanic Type: Consults Filed: 03/20/2024 15:11 Note Text: CONSULT: CHRONIC PAIN MANAGEMENT SERVICE PATIENT NAME: Enrrique Madera DATE of SERVICE: March 20, 2024 TIME of SERVICE: 1:00PM REASON FOR CONSULT: Suggestions for optimization of acute on chronic, worsening low back pain w/ RLE radiculopathy REQUESTING PROVIDER: Mckayla Prince PA-C PCP: Hany Olivares MD ASSESSMENT: Mr. Enrrique Madera is a 58 yo M from [place], [place] w/ a PMHx of HTN, chronic [...] starting ~1.5 weeks ago who presented to [facility] Main ED on 03/19/2024 for further evaluation [...] evaluation. PLAN: 1. Per PDMP report in [facility], Mr. Madera has been prescribed chronic opioid therapy (COT) consisting of (2) Rx for Butrans 5 mcg/hr TD patch q 7 days per [facility] in [place], [place] started on 02/24/2024 w/ most recent Rx dispensed on 03/12/2024. Please refer to the PDMP tab in [facility] and under [facility] tab below HPI for [...] (on 20 minutes/off 20 minutes) to prevent samano. Mr. Madera should also be instructed to [...] 450 m (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 Normal [facility] metabolic 2000 panelon 03-20-2024 Albumin [Mass/Vol] 3.9 g/dL Normal 3.9-4.9 [facility] Comment on above: Order Comment: Speci men Type: BLOOD SPECIMENOrdering Facility: [facility] Address: [address] [place] [id number] Performed By: #### 1 9123-9, 57536-2 ####[facility] LABCLIA [id number] [address] [address] [place] ALP [Catalytic activity/Vol] 50 U/L Normal 38-113 [facility] Comment on above: Order Comment: Speci men Type: BLOOD SPECIMENOrdering Facility: [facility] Address: [address] [place], [place] [address] Performed By: #### 1 9123-9, 70693-6 ####[facility] LABCLIA [id number] [place] [address] [place] ALT [Catalytic activity/Vol] 35 U/L Normal 10-54 [facility] Comment on above: Order Comment: Speci men Type: BLOOD SPECIMENOrdering Facility: [facility] Address: [address] [place], [place] [address] Performed By: #### 1 9123-9, 44519-2 ####[facility] LABCLIA [id number] [place] [address] [place] Anion gap [Moles/Vol] 7 mmol/L Low 8-15 [facility] Comment on above: Order Comment: Speci men Type: BLOOD SPECIMENOrdering Facility: [facility] Address: [address] [id number] Performed By: #### 1 9123-9, 92992-0 ####[facility] LABCLIA [id number] [place] [id number] [place] AST [Catalytic activity/Vol] 24 U/L Normal 14-40 [facility] Comment on above: Order Comment: Speci men Type: BLOOD SPECIMENOrdering Facility: [facility] Address: [address] [place], [place] [address] Performed By: #### 1 23-9, 60009-3 ####[facility] LABCLIA [id number] [place] [address] [place] Bilirubin [Mass/Vol] 0.8 mg/dL Normal 0.2-1.3 [facility] Comment on above: Order Comment: Speci men Type: BLOOD SPECIMENOrdering Facility: [facility] Address: [address] [place] [address] Performed By: #### 1 9122-9, ####[facility] LABCLIA [id number] [place] [address] [place] Calcium [Mass/Vol] 8.8 mg/dL Normal 8.5-10.2 [facility] Comment on above: Order Comment: Speci men Type: BLOOD SPECIMENOrdering Facility: [facility] Address: [address] [place] [address] Result Comment: Resu lt rechecked. Performed By: #### 1 23-9, ####[facility] LABCLIA [id number] [place] [address] [place] Chloride [Moles/Vol] 93 mmol/L Low 98-107 [facility] Comment on above: Order Comment: Speci men Type: BLOOD SPECIMENOrdering Facility: [facility] Address: [address] [place] [address] Performed By: #### 1 9, ####[facility] LABCLIA [id number] [place] [address] [place] CO2 [Moles/Vol] 28 mmol/L Normal 22-30 [facility] Comment on above: Order Comment: Speci men Type: BLOOD SPECIMENOrdering Facility: [facility] Address: [address] [place] [address] Performed By: #### 1 23-9, 49204-8 ####[facility] LABCLIA [id number] [place] [address] [place] Creatinine [Mass/Vol] 0.77 mg/dL Normal 0.73-1.22 [facility] Comment on above: Order Comment: Rosalie best Type: BLOOD SPECIMENOrdering Facility: [facility] Address: [address] [place] [address] Performed By: #### 1 9123-9, 79824-3 ####[facility] LABIA [id number] [address] Creatinine and Glomerular filtration rate.predicted panel (S/P/Bld) 104 mL/min/1.73m??? Normal >=60 [facility] Comment on above: Order Comment: Rosalie best Type: BLOOD SPECIMENOrdering Facility: [facility] Address: [address] [place] [address] Result Comment: Lia mated Glomerular Filtration Rate [...] actual GFR. Performed By: #### 1 9123-9, ####[facility] LABIA [id number] [place] [address] [place] Glucose [Mass/Vol] 86 mg/dL Normal 74-99 [facility] Comment on above: Order Comment: Rosalie best Type: BLOOD SPECIMENOrdering Facility: [facility] Address: [address] [place] [address] Result Comment: The [place] [employer] (ADA) provides guidance for cutoff [...] Standards of Medical Care in Diabetes 2016, [place] [employer]. Diabetes Care. 2016.39(Suppl 1). Performed By: #### 1 9123-9, ####[facility] LABCLIA [id number] [place] [address] [place] Potassium [Moles/Vol] 5.1 mmol/L Normal 3.7-5.1 [facility] Comment on above: Order Comment: Speci men Type: BLOOD SPECIMENOrdering Facility: [facility] Address: [address] [place] [address] Performed By: #### 1 239, ####[facility] LABCLIA [id number] [place] [address] [place] Protein [Mass/Vol] 5.8 g/dL Low 6.3-8.0 [facility] Comment on above: Order Comment: Speci men Type: BLOOD SPECIMENOrdering Facility: [facility] Address: [address] [place] [address] Performed By: #### 1 239, ####[facility] LABCLIA [id number] [place] [address] [place] Sodium [Moles/Vol] 128 mmol/L Low 136-144 [facility] Comment on above: Order Comment: Speci men Type: BLOOD SPECIMENOrdering Facility: [facility] Address: [address] [place] [address] Result Comment: Resu lt rechecked. Performed By: #### 1 9, ####[facility] LABCLIA [id number] [place] [id number] [place] Urea nitrogen [Mass/Vol] 14 mg/dL Normal 9-24 [facility] Comment on above: Order Comment: Speci men Type: BLOOD SPECIMENOrdering Facility: [facility] Address: [address] [place] [address] Performed By: #### 1 9123-9, 82620-9 ####[facility] LABCLIA [id number] [place] [address] [place] Magnesium SerPl-mCncon 03-20 Magnesium [Mass/Vol] 2.2 mg/dL Normal 1.7-2.3 [facility] Comment on above: Order Comment: Speci men Type: BLOOD SPECIMENOrdering Facility: [facility] Address: [address] [place] [address] Performed By: #### 1 9123-9, 25844-0 ####[facility] LABIA [id number] [place] [address] [place] Osmolality SerPlon 4 Osmolality [Osmolality] 261 mosm/kg Low 275-300 [facility] Comment on above: Order Comment: Speci men Type: BLOOD SPECIMENOrdering Facility: [facility] Address: [address] [place] [address] Performed By: #### 2 692-2 ####[facility] LABIA [id number] [place] [address] [place] THERAPY NTon 03-20-2024 THERAPY NT HNO ID: [id number] Author: REBECA COOPER OT/[place] Service: Occupational Therapy Author Type: Occupational Therapist Type: Therapy (PT/OT/Speech/Resp) Filed: 03/20/2024 08:24 Note Text: THERAPY COMMUNICATION NOTE SERVICE DATE: 03/20/2024 ROOM: H081[facility] Physical therapy consult received. Chart reviewed. No [...] there are further concerns. Thank you. SIGNATURE: Rebeca Cooper OT/L PATIENT NAME: Enrrique Madera DATE: March 20, 2024 TIME: 8:24 AM Normal [facility] XR HIP MICHELL 5V PEL+ AP/LAT EA [...] at L4-L5. IMPRESSION: No acute osseous abnormality. Hand Inspector: HARRIETT Transcribe Date/Time: Mar 20 2024 12:53P Dictated by : MILES SENA, This examination was interpreted and the report reviewed and electronically signed by: MING BARCENAS MD on Mar 20 2024 1:10PM EST [id number] Normal [facility] ALLIED HEALTHon 03-19-2024 ALLIED HEALTH HNO ID: [id number] Author: ENRRIQUE HARO RT(R) Service: Radiology Author Type: Coil Winder Repair Type: Allied Health Filed: 03/19/2024 16:06 Note [...] which were ordered as well. SIGNATURE: RT Patience(Janiya) PATIENT NAME: Enrrique Madera DATE: March 19, 2024 TIME: 3:57 PM PAGER/CONTACT #: Velma [facility] ALLIED HEALTH HNO ID: [id number] Author: ENRRIQUE HARO RT(R) Service: Radiology Author Type: Coil Winder Repair Type: Allied Health Filed: 03/19/2024 15:55 Note [...] PATIENT PRESENTS WITH AN IMPLANTABLE OR ATTACHED INSURANCE AGENTS SUPERVISOR: No RADIOLOGY DEPARTMENT: MR; Exam(s) Completed: Spine: Lumbar spine limited- localizer only PERIPHERAL IV DATA: Not applicable SIGNED BY: PRATIK Morin) March 19, 2024 3:54 PM Normal [facility] Basic metabolic 2000 panelon 03-19-2024 Anion gap [Moles/Vol] 7 mmol/L Low 8-15 [facility] Comment on above: Order Comment: Speci men Type: BLOOD SPECIMENOrdering Facility: [facility] Address: [address] [place] [address] Performed By: #### 1 988-5, 95115-4 ####[facility] LABCLIA [id number] [place] [address] [place] Calcium [Mass/Vol] 5.8 mg/dL Low 8.5-10.2 [facility] Comment on above: Order Comment: Speci men Type: BLOOD SPECIMENOrdering Facility: [facility] Address: [address] [place] [address] Performed By: #### 1 988-5, 15028-8 ####[facility] LABCLIA [id number] [place] [address] [place] Chloride [Moles/Vol] 109 mmol/L High 98-107 [facility] Comment on above: Order Comment: Speci men Type: BLOOD SPECIMENOrdering Facility: [facility] Address: [address] [place] [address] Performed By: #### 1 988-5, 81563-6 ####[facility] LABCLIA [id number] [place] [address] [place] CO2 [Moles/Vol] 23 mmol/L Normal 22-30 [facility] Comment on above: Order Comment: Speci men Type: BLOOD SPECIMENOrdering Facility: [facility] Address: [address] [place] [address] Performed By: #### 1 988-5, 66196-1 ####[facility] LABCLIA [id number] [place] [address] [place] Creatinine [Mass/Vol] 0.53 mg/dL Low 0.73-1.22 [facility] Comment on above: Order Comment: Speci men Type: BLOOD SPECIMENOrdering Facility: [facility] Address: [address] [place] [address] Performed By: #### 1 988-5, 48601-5 ####[facility] LABCLIA [id number] [place] [address] [place] Creatinine and Glomerular filtration rate.predicted panel (S/P/Bld) 117 mL/min/1.73m??? Normal >=60 [facility] Comment on above: Order Comment: Speci men Type: BLOOD SPECIMENOrdering Facility: [facility] Address: [address] [place] [address] Result Comment: Lia mated Glomerular Filtration Rate [...] reflect actual GFR. Performed By: #### 1 988-5, 31347-4 ####[facility] LABIA [id number] [place] [address] [place] Glucose [Mass/Vol] 65 mg/dL Low 74-99 [facility] Comment on above: Order Comment: Rosalie best Type: BLOOD SPECIMENOrdering Facility: [facility] Address: [address] [place] [address] Result Comment: The [place] [employer] (ADA) provides guidance for cutoff [...] Standards of Medical Care in Diabetes 2016, [place] [employer]. Diabetes Care. 2016.39(Suppl 1). Performed By: #### 1 988-5, 47128-0 ####[facility] LABIA [id number] [place] [id number] [place] Potassium [Moles/Vol] 2.9 mmol/L Low 3.7-5.1 [facility] Comment on above: Order Comment: Rosalie best Type: BLOOD SPECIMENOrdering Facility: [facility] Address: [address] [place] [address] Performed By: #### 1 988-5, 35651-2 ####[facility] LABCLIA [id number] [place] [address] [place] Sodium [Moles/Vol] 139 mmol/L Normal 136-144 [facility] Comment on above: Order Comment: Speci men Type: BLOOD SPECIMENOrdering Facility: [facility] Address: [address] [place] [address] Performed By: #### 1 988-5, 09793-7 ####[facility] LABCLIA [id number] [place] [address] [place] Urea nitrogen [Mass/Vol] 10 mg/dL Normal 9-24 [facility] Comment on above: Order Comment: Speci men Type: BLOOD SPECIMENOrdering Facility: [facility] Address: [address] [place] [address] Performed By: #### 1 988-5, 37586-7 ####[facility] LABIA [id number] [place] [address] [place] CBC W Auto Differential pane l (Bld)on 03-19-2024 Basophils (Bld) [#/Vol] 0.03 10*3/uL Normal <0.11 [facility] Comment on above: Order Comment: Speci men Type: BLOOD SPECIMENOrdering Facility: [facility] Address: [address] [place] [address] Performed By: #### 5 7021-8 ####[facility] LABCLIA [id number] [place] [address] [place] Basophils/100 WBC (Bld) 0.2 % Normal [facility] Comment on above: Order Comment: Speci men Type: BLOOD SPECIMENOrdering Facility: [facility] Address: [address] [place] [address] Performed By: #### 5 7021-8 ####[facility] LABIA [id number] [place] [address] [place] Differential cell count method Nom (Bld) Auto Normal [facility] Comment on above: Order Comment: Speci men Type: BLOOD SPECIMENOrdering Facility: [facility] Address: [address] [place] [address] Performed By: #### 5 7021-8 ####[facility] LABCLIA [id number] [place] [address] [place] Eosinophils (Bld) [#/Vol] 0.10 10*3/uL Normal <0.46 [facility] Comment on above: Order Comment: Speci men Type: BLOOD SPECIMENOrdering Facility: [facility] Address: [address] [place] [address] Performed By: #### 5 7021-8 ####[facility] LABCLIA [id number] [place] [address] [place] Eosinophils/100 WBC (Bld) 0.8 % Normal [facility] Comment on above: Order Comment: Speci men Type: BLOOD SPECIMENOrdering Facility: [facility] Address: [address] [place] [address] Performed By: #### 5 7021-8 ####[facility] LABCLIA [id number] [place] [address] [place] Erythrocyte distribution width (RBC) [Ratio] 14.1 % Normal 11.5-15.0 [facility] Comment on above: Order Comment: Speci men Type: BLOOD SPECIMENOrdering Facility: [facility] Address: [address] [place] [address] Performed By: #### 5 7021-8 ####[facility] LABCLIA [id number] [place] [address] [place] Hematocrit (Bld) [Volume fraction] 45.8 % Normal 39.0-51.0 [facility] Comment on above: Order Comment: Speci men Type: BLOOD SPECIMENOrdering Facility: [facility] Address: [address] [place] [address] Performed By: #### 5 7021-8 ####[facility] LABCLIA [id number] [place] [address] [place] Hemoglobin (Bld) [Mass/Vol] 15.6 g/dL Normal 13.0-17.0 [facility] Comment on above: Order Comment: Speci men Type: BLOOD SPECIMENOrdering Facility: [facility] Address: [address] [place] [address] Performed By: #### 5 7021-8 ####[facility] LABCLIA [id number] [place] [address] [place] Immature granulocytes (Bld) [#/Vol] 0.26 10*3/uL High <0.10 [facility] Comment on above: Order Comment: Speci men Type: BLOOD SPECIMENOrdering Facility: [facility] Address: [address] [place] [address] Performed By: #### 5 7021-8 ####[facility] LABIA [id number] [place] [address] [place] Immature granulocytes/100 WBC (Bld) 2.1 % Normal [facility] Comment on above: Order Comment: Speci men Type: BLOOD SPECIMENOrdering Facility: [facility] Address: [address] [place] [address] Performed By: #### 5 7021-8 ####[facility] LABCLIA [id number] [place] [address] [place] Lymphocytes (Bld) [#/Vol] 1.28 10*3/uL Normal 1.00-4.00 [facility] Comment on above: Order Comment: Speci men Type: BLOOD SPECIMENOrdering Facility: [facility] Address: [address] [place] [address] Performed By: #### 5 7021-8 ####[facility] LABCLIA [id number] [place] [address] [place] Lymphocytes/100 WBC (Bld) 10.5 % Normal [facility] Comment on above: Order Comment: Speci men Type: BLOOD SPECIMENOrdering Facility: [facility] Address: [address] [place] [address] Performed By: #### 5 7021-8 ####[facility] LABIA [id number] [place] [address] [place] MCH (RBC) [Entitic mass] 31.1 pg Normal 26.0-34.0 [facility] Comment on above: Order Comment: Speci men Type: BLOOD SPECIMENOrdering Facility: [facility] Address: [address] [place] [address] Performed By: #### 5 7021-8 ####[facility] LABIA [id number] [place] [address] [place] MCHC (RBC) [Mass/Vol] 34.1 g/dL Normal 30.5-36.0 [facility] Comment on above: Order Comment: Speci men Type: BLOOD SPECIMENOrdering Facility: [facility] Address: [address] [place] [address] Performed By: #### 5 7021-8 ####[facility] LABIA [id number] [place] [address] [place] MCV (RBC) [Entitic vol] 91.2 fL Normal 80.0-100.0 [facility] Comment on above: Order Comment: Speci men Type: BLOOD SPECIMENOrdering Facility: [facility] Address: [address] [place] [address] Performed By: #### 5 7021-8 ####[facility] LABIA [id number] [place] [address] [place] Monocytes (Bld) [#/Vol] 0.89 10*3/uL High <0.87 [facility] Comment on above: Order Comment: Speci men Type: BLOOD SPECIMENOrdering Facility: [facility] Address: [address] [place] [address] Performed By: #### 5 7021-8 ####[facility] LABCLIA [id number] [place] [address] [place] Monocytes/100 WBC (Bld) 7.3 % Normal [facility] Comment on above: Order Comment: Speci men Type: BLOOD SPECIMENOrdering Facility: [facility] Address: [address] [place] [address] Performed By: #### 5 7021-8 ####[facility] LABCLIA [id number] [place] [address] [place] Neutrophils (Bld) [#/Vol] 9.66 10*3/uL High 1.45-7.50 [facility] Comment on above: Order Comment: Speci men Type: BLOOD SPECIMENOrdering Facility: [facility] Address: [address] [place] [address] Performed By: #### 5 7021-8 ####[facility] LABCLIA [id number] [place] [address] [place] Neutrophils/100 WBC (Bld) 79.1 % Normal [facility] Comment on above: Order Comment: Speci men Type: BLOOD SPECIMENOrdering Facility: [facility] Address: [address] [place] [address] Performed By: #### 5 7021-8 ####[facility] LABCLIA [id number] [place] [address] [place] Nucleated RBC (Bld) [#/Vol] 10*3/uL Normal <0.01 [facility] Comment on above: Order Comment: Speci men Type: BLOOD SPECIMENOrdering Facility: [facility] Address: [address] [place] [address] Performed By: #### 5 7021-8 ####[facility] LABCLIA [id number] [place] [address] [place] Nucleated RBC/100 WBC (Bld) [Ratio] 0.0 /100 WBC Normal [facility] Comment on above: Order Comment: Speci men Type: BLOOD SPECIMENOrdering Facility: [facility] Address: [address] [place] [address] Performed By: #### 5 7021-8 ####[facility] LABIA [id number] [place] [address] [place] Platelet mean volume (Bld) [Entitic vol] 9.2 fL Normal 9.0-12.7 [facility] Comment on above: Order Comment: Speci men Type: BLOOD SPECIMENOrdering Facility: [facility] Address: [address] [place] [address] Performed By: #### 5 7021-8 ####[facility] LABIA [id number] [place] [address] [place] Platelets (Bld) [#/Vol] 297 10*3/uL Normal 150-400 [facility] Comment on above: Order Comment: Speci men Type: BLOOD SPECIMENOrdering Facility: [facility] Address: [address] [place] [address] Performed By: #### 5 7021-8 ####[facility] LABIA [id number] [place] [address] [place] RBC (Bld) [#/Vol] 5.02 10*6/uL Normal 4.20-6.00 [facility] Comment on above: Order Comment: Speci men Type: BLOOD SPECIMENOrdering Facility: [facility] Address: [address] [place] [address] Performed By: #### 5 7021-8 ####[facility] LABCLIA [id number] [place] [address] [place] WBC (Bld) [#/Vol] 12.22 10*3/uL High 3.70-11.00 [facility] Comment on above: Order Comment: Speci men Type: BLOOD SPECIMENOrdering Facility: [facility] Address: [address] [place] [address] Performed By: #### 5 7021-8 ####[facility] LABCLIA [id number] [address] [place] [address] [place] CONSULTon 03-19-2024 CONSULT HNO ID: [id number] Author: SAVANNA SANTIAGO MD Service: Neurosurgery Author [...] starting ~1.5 weeks ago who presented to [facility] Main ED on 03/19/24 for intractable pain. [...] RLE HF 2, KE 3, DF/EHL/PF 5 Anti-platelets/anti-coagul ants: None PREVIOUS SPINAL SURGERY (Per Kian Mcdermott's note 03/01/24): SURGERY #1: ~1979' L5-S1 decompression SURGERY #2: ~1984 L4-L5 decompression SURGERY #3: Thoracic kyphoplasty SURGERY #4: 07/25/[address] Daniel Childress L2-5 decompressive laminectomy with partial medial facetectomies PAST MEDICAL HISTORY: PAST MEDICAL HISTORY 03/17/2014: Burst fracture of T12 vertebra (HCC) 01/26/2023: Carpal tunnel syndrome of right wrist 09/09/2020: Chondromalacia of right knee Comment: Added automatically from request for surgery [id number] 03/01/2024: Chronic pain 03/01/2024: Depressive disorder 03/01/2024: [...] Rfl: diclofenac, EC, (VOLTAREN) 75 mg EC [id number] mg.Disp: Rfl: FLUoxetine (PROZAC) 10 mg capsuleTake 10 mg by mouth.Disp: Rfl: gabapentin (NEURONTIN) 600 mg [id number] mg.Disp: Rfl: lisinopril-hydroCHLOROthia zide (ZESTORETIC) 20-25 mg per tabletTake 1 tablet by mouth once daily.Disp: Rfl: naloxone 4 mg/actuation nasal spray (NARCAN)Use 4 mg in the nose at bedtime as needed.Disp: Rfl: sildenafil (REVATIO) 20 mg tablet2 TO 3 TABLETS, Oral, Daily, PRN: NEEDED, # 90 tab(s), 1 Refill(s), Pharmacy: [id number], TAKE 2 TO 3 [...] weeks ago (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 Normal [facility] CRP SerPl-mCncon 03-19-2024 CRP [Mass/Vol] mg/L Normal <0.9 [facility] Comment on above: Order Comment: Speci men Type: BLOOD SPECIMENOrdering Facility: [facility] Address: [address] [place] [address] Performed By: #### 1 988-5, 49357-5 ####[facility] LABCLIA [id number] [facility] [id number] [place] Coding Summaryon 03-19-2024 Coding Summary HTMLBase 64 TrstkynzKOr9fRr+PGhlYWQ+PE 5NWEIeZ02bwREoqI0pZ2QWWUyE LbumJFWJQKaOEnTvcsCeNM9xbH NjZXJu IC8+LY1bVTRqCbqtbPMxb6E0tY L2B60ebf8yOZwtvXB5YDVuDtTa iolzj8ufhYg6CRfmCyzhEiEs TNAqsT19UJF3wK72Zl17mQNnaX Zzn3udyZa8AsJjPUNaEUV3zHmx IUscm2NjAXMiW42qcAAer2G6 FLHlbMducJSfKgZvwQI6uY3oRS ffrdthc1zgdcxlAwo7er96rRMy c9I7uBU0L7RovkH9VIBqcOXk SqktxZPUeP9qusqqy8ncxlabYn OhETTtARm9GVl5TNZszVboAcAt GC13NKV0XTIhqePlW3JmFGYu mZguMrA6y7L3Fm5XZ5WZRlvaH8 VNTUFSWTwvdGQ+HC83ab12H8Jn YuxgBmm7MUKdQVT4pDX0bE2t ZZJjSVdyl4Q6eHJ2L8WqgfPexr 8co0izZFThIIqoU53npJFdg1O5 CCGpoVF7HJRbcLhtRqBiaQ19 Oyc+XOKjlDzox2YmRnnka3eae7 zhcQz3YxabJVWhclTnzOdeCEC4 z7CvNd8fPHZlxUA4gTZ7uI9i ShLrTiS3PGsxF391WhApgEHlXj bfC54nW7VklHF+VYLvDci0UPYi vTzoSC4mF0OrULKroauemNTd qFxoFL9vXMJsdjbpHFYvoX2aXG FqT6f0HcSjKrH7YPvaD5SqKARh wabsPb74bT8dNzUwHsZ5MQsh G5ChfaY4ZJLanSZpSLtcROB9N2 5zu9W1HFGvLZDsHED4aVD4eC5w bGlnbjogbGVmdDsgdmVydGlj YDlnBCmoX992ZFFmkFfhGkHcKU luZyBEYXRlOiAgMDgvMDUvMjAy NDwvdGQ+ZNCqVCK2aSrqQAPp pFXlGMcaHz5opMogtCudLQ8jSY LqxfjwECAiiU8bFPNnsDFdxGst EX1fKIQfnvwgk250WuSbWHU0 OTRctLTwI0XifI6gPuHjYHVpAL QoR8BkaQQsHMzeT043HUbdPwX4 YKSprrFsZ0TdFXDddXogWhE6 k0U6Xa5Wr0SpbejdV7KsbHPdMx YpDgtnDAo5U6PjSoujnKQ+PC90 UTPnWO76LYk5OTE1bJvhYFxb FXDfD9LzsV7fBvUiVTFnTEVwFp c+PHRhYmxlIHdpZHRoPScxMDAl ZkLdhMkuWN5mUv3dWJZbIZQu pYyuzNTzLeNtq4fsVKBhEXeoYX 6odDzuB2LojXM3GPKjh2m6Ll36 P09lA8DikFV+LGXlpPY2cPF4 qU1bDmNuMlC6GRivP280MgOdzH WfHkwyw8vmm2edfZu0AiQ9UYVr gsTdvGisEGA0r0QvIn55W87i IHdpZHRoPSIxNSUiIHZhbGlnbj 4thS4oBb1+BVOsuKE3wGF7rX7g GoGlLtC2UUolE644XbYpbQKo Qsijm7huj6uirRj3KuBcPEHwvr DczZruUWR6l4DvQv21P4ChxSha c0PzHcw6on83vWDvk3R9hFO6 W6YwEJGwgsdszTAofEwbWP4sVZ NiiffdMSQhaG7zZZCqB7a1IcUb OhK6MErgA1VtzcF2FRNejBPb HSAasHQRzB4otmkjh8fqgcliAg NlWMQbTLf3IFc5UMCuzYkrZoZe URY6SyK5OOL2qQOltJ6feEwp iewlwX2fUtb+VLY8wDJecQIBFR 1lOjwvdGQ+QRRbMMC1hFrkCBsc IJLuzA3hRKExW2w2DoFkHtJ7 PPvzM3EcnkK6ODVmhWQaYPTnfX QVjY0skbvby9qdkrjaOnXoGPCg YSz6KCm9MCMgzUstOfSqRDJ5 VaE9YFH3cGNelJ8geMuhadrttG 9wOyc+HggabSlmQMW7GJw3Z1Ey Adv3WTEbbVkdKD3wuEXyNSlo Tu4slVtyaUqdRI0vPMWqhokpd0 32GbRli9aiKJRxgDLaIDaeYDB8 L51nc0F1CKWzEBSjYGI3fPP1 vL4snMohhglozXCzkSwbthWccW uyJMkwEEecW119RZIynQamErRy KLz0M9NfWzu7KICreYscBE7z sDQyPLymZm6btJptxRqdMR1rYN Lbnurum779DnXyc1epFCBqgVEo AQxgGIB8G63po0L6VAIzEWLk ZUR6pTJ2jU6mnHbieakyyGDdnV ftcuPtsTcqFYpyDEnyK243IUCb yTixHlFbmVf5M1CrWcn1WSJp jDutGR3mnYMkCUbsPn7olXvaiP pnXM5mQUZyrbcaf531MoTxb5et ZADyeWTdPWbeIFS6Y78si6L7 CCFhHYOjVPS5cKF4vA9lrHojzx ogbGVmdDsgdmVydGljYWwtYWxp Y860KKFsdFffIpEfeSjwnoRu QRpoGUw9N5QpPowfcQJ+PC90YW BtUJ51bNEshZFmm7gbnWp6KrWu FQNoTMG4hNwjJXakd3LtLCFk G76wsZFbt1H5SVNauMkzvONdBv BalGA9zQ4eCChjscjwj6vhnzgm Jizkm1ksjr34dA43J90bEVjx FNKkYSJlXJEaBFNpyCvpmk4rrN 9wIi8+OMXrxNE2oEI6nF7rNBEj WjB2TYxbN958VdScnTFaFfyw k4ifs2ygvJp6GwW5UYJbqwZujZ wuXYB4k3YxRb70P03bVHogRGKs BUWrLVCuSYDydYngin8kgV9g Ii8+CLDgwOV7jPT9bA2aRpThIl Q4CHgmA225YiSuvASyPpyaF31i F9PwaBR+PRKkJil7YDKapUev KW2zcZSnQKrfXo7zFQB8SrQxZl SdXEvpW5EoFMCrcobrjiocfRH2 KTLgKGVzfL02Sw3owZrjHPCz uAXQvA4oglwmn6zpwyhoTdNhSO SlELd0DYt5NHGneXxnMrOwIUZ6 RyP8JMU7fQOglV4moXglhdkt vJ1gG6ZbULMmevqwHi89cS3gFk KvYrN8JKsqDec+T1FMINHOUPXN ON5CUkSXTX51EZ71eBXrr8E9 iOT9V3RqMXPkcewrbubanWV8EO FbNRYimF57eEUdUJngTg8eq8F8 m509KHIjCHFmqQ54Zu7luLge QVOlbIITqI2dvuknu4diiutwRi OgUPThFXh4LAk5UNFuuOqrLzVl CWD2YtP7TLM5bIBwgQ2hkLzh ogxqrV7xYyl+TIUnXENmJPi3Ye wvdGQ+FMCtOHS4oDeuMQdsVYXf oF7vUXIfZ5r4VzUjAlI7QCye A3YrLBWrelycHn42yB0zEaOdFo S7XDqdJ8KeihW1ZHQsjHQaTGaj LQU9A77kb8P8SYCsMRZzJAO1 jIC0hU8amHpbuyhqxLEsfGhkae RvrVtwHVozQEgmS652DLUaeKln TzV3MRsmEKMnYL67GG66hWBl x0R5pSF8G1TcNYZxglqmsqzgfT C4CBUqQTFdsS75eKSwIEulMb7v u5Z4n237SIHrNSUvtF19Qh1k hTiuPJRgyLYKoT2zaluec2ahsz tbZjXqZHJaAHc1NQl9AQJlwSjo VdHxIAY3XmO8MAJ8nEIvnR1j hRedfqlscY3iMrl+TUFMRTwvdG Q+RJVaMWE5jTyaXVbdQDIleG5e SPXmP0e0HfTwBbN5YFpoR2Ul FEBgetpfEu54tN5bPbGgYyN9ST vvR3KdswN2ICGqsPCiVQojJSL2 Y97ev3H4YTOkUMRbIFQ8sBH0 cI1neOuithydoUNlfFxdwwRusY ysPNhiVYzqH412EAZevSfeIgRq tHJFxTVkNSW1UQ72CG85H4At PjwvdGFibGU+PHRhYmxlIHdpZH UzJLyyZMRhIuCtpLtpOR3mFz7p VOSxIQYhiLqzfACmUeFrm1yw MUVvTYdcVE4ivDdpW3SgoPF9IJ Vqw4t6Rq78C39nD5FfgTG+PGNv qYM7nDU5zD2cKxOeUpP0UTsv L711WmLmuRSsGwrki9xnb1rdtC r2VqVgAEJnqdCgeJzvELY6v6Ri Yz06S51nKHceQBPmUJQxFCYg LZFicZyofp6oxX6uLq3+PGNvbC V3nDB9sV8aLsOaKlX7ABxbZ212 PwPmePTaOgwmW36zW8QbdTW+ ULIaVsq4YUJrhRuxHT5vxTJvML bsOl8yQKT7CxGeMcRuBYgsC8Ay XXUhtqixcfdjnPY7CGCrJABt qJ57Nr7raHslUu5uNRJeHOP3WH LtySMcA6FcvM7iJaSjHMFxIEWi Y4CukMFoAOhlU085VDfoViS3 KEIiyjJjC4PdJXRpxHfqNrT5a8 I5By3RxGqrjJSsVH5dJrWzVOf2 O6SkVeg1IUNnlPkpGK0cnAAs SUmgZi5ezDnfwZjmVX8nBKNawz skw225GqAnl1jvZGPuxYNjORqt HWH7T67cn3Y7UWJmKPDgNLL4 rMK7jQ4dwOyumgstbVXnaEutfb AhlCztHIzbWVaqY723GIJhsTlu UgNBPit7D8AzBtu1QXLzwCng MM7zmKIjACydTe5nnBagsQdgHE 8jQLIbtarvq047CkZly2ttDCLm pQJeRNzqBXK2I60xp4K3VVNd CLMzGXX2dZH3uJ6geBnrxygyhC QtsGvdygYfjKaeLYjaMOrhX416 DZCxpGmxZy2UXjw4C8OePil7 KURijYksZZ5wvVKdZAzyFc1ccL osdAwrOI7jMBMagaxsm442JbUg j1lxJMNrbJHtNXveXAR0Z01t c5C7KAZxMDFmCZH5aWN6jV6ykE lnbjogbGVmdDsgdmVydGljYWwt NVbwN506CTIanJuqDuBajQDo OjwvdGQ+PE58no76W9ClWxcmRu g4FUSbZJX6aEC9tO5iULVfFMhp d6Z5qJQ2R0XzckGioe8co1fb YXB (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 [facility] Consent Formson 03-19-2024 Consent Forms [id number] [facility] ED NOTEon 03-19-2024 ED NOTE HNO ID: [id number] Author: TED PEREZ CT Service: Emergency Medicine Author Type: Clinical Coil Winder Repair Type: ED Notes Filed: 03/19/2024 15:47 Note Text: i [facility] ED PROV NOTEon 03-19-2024 ED PROV NOTE HNO ID: [id number] Author: ABHI CHAPARRO MD Service: Emergency Medicine [...] provided by: Patient, medical records and spouse leadlighter used: No PAST MEDICAL HISTORY 03/17/2014: Burst fracture of T12 vertebra (HCC) 01/26/2023: Carpal tunnel syndrome of right wrist 09/09/2020: Chondromalacia of right knee Comment: Added automatically from request for surgery [id number] 03/01/2024: Chronic pain 03/01/2024: Depressive disorder 03/01/2024: [...] reviewed and are negative. Physical Exam Vitals [03/19/24 0713] BP Pulse Temp Temp src Resp SpO2 [...] 9.66 (*) 1.45 - 7.50 k/uL Abs Comerío 0.89 (*) <0.87 k/uL Abs Immature Gran 0.26 (*) <0.10 k/uL All other components within normal limits Procedures ED Course / Clinical Impression Clinical Impressions as of 03/20/24 2343 Chronic low back pain, unspecified back pain laterality, unspecified whether sciatica present Atrophy of muscle of right thigh Decreased sensation of leg Compression fracture of T12 vertebra, initial encounter (HCC) MDM / Disposition / Plan 58 yo male presents with low back pain. Vital signs reviewed, wnl. Physical examination as documented above. Differential diagnoses discussed below. Some concern for cauda equina, however pt ambulating w/o difficulty, urinating here in ED w/o issue, no saddle anesthesia on exam. NSGY consulte (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 [facility] HISTORY PHYSICALon HISTORY PHYSICAL HNO ID: [id number] Author: SCOTTIE COLLINS MD Service: Hospital Medicine Author Type: Physician Type: H&P Filed: 03/20/2024 01:23 Note Text: HOSPITAL MEDICINE HISTORY AND PHYSICAL PCP: Hany Olivares MD PAGER COVERAGE: Please page 8th floor [phone], non-8th floor [phone] after 5pm . From 8am to 5pm [...] Mcgraw on DATE TIME via verbal communication. Hand Inspector: HARRIETT Transcribe Date/Time: Mar 19 2024 4:07P Dictated by : BENEDICT REBOLLEDO MD This examination was interpreted and the report reviewed and electronically signed by: NAKIA CARRINGTON MD on Mar 19 2024 4:45PM [...] 01/26/2023: C (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 [facility] MRI LUMBAR SPINE WO IVCONon 03-19-2024 MRI [...] Mcgraw on DATE TIME via verbal communication. Hand Inspector: HARRIETT Transcribe Date/Time: Mar 19 2024 4:07P Dictated by : BENEDICT REBOLLEDO MD This examination was interpreted and the report reviewed and electronically signed by: NAKIA CARRINGTON MD on Mar 19 2024 4:45PM EST [id number] [facility] XR LUMBAR 4V AP/LAT/ FLEX/EX Ton 03-19-2024 [...] Spondylosis of the lumbar spine as described. Hand Inspector: PSCB Transcribe Date/Time: Mar 19 2024 3:00P Dictated by : ROD MALAVE MD This examination was interpreted and the report reviewed and electronically signed by: ROD MALAVE MD on Mar 19 2024 3:03PM EST [id number] [facility] XR SCOLIOSIS 2V PA STAND/LAT on 03-19-2024 [...] spine. Postoperative and degenerative findings as described. Hand Inspector: PSCB Transcribe Date/Time: Mar 19 2024 4:11P Dictated by : ROD MALAVE MD This examination was interpreted and the report reviewed and electronically signed by: ROD MALAVE MD on Mar 19 2024 4:33PM EST [id number] [facility] Inpatient Patient Summaryon 03-16-2024 Inpatient [place] [address] Patient Discharge Instructions Name: ENRRIQUE MADERA : 1965 Patient Address: [address] [place] [address] Primary Care Provider: Name: DEVI MUNOZ DO After you are discharged if you find you have any questions, please, call [phone] ext [phone] to speak to a nurse. Discharge Diagnosis: Prescription Information: If you have been given a prescription for narcotics, seek immediate medical attention if you have any difficulty breathing or any sudden status changes such as confusion and sleepiness. If you or anyone you know is experiencing suicidal thoughts, mental health, alcohol and/or drug addiction problems; contact the [facility] 07/03 Crisis Hotline -Text 4HOPE to 610107. If you received any narcotics, sedation, or [...] business decisions or sign any legal documents [facility] would like to thank you for [...] a day for 30 Days. Refills: 0. hydrochlorothiazide-lisino pril (hydrochlorothiazide-lisin opril 25 mg-20 mg oral tablet) 1 tab(s) [...] 30 Days. Refills: 0., OARRS reviewed 03/08/2024 hydrochlorothiazide-lisino pril (hydrochlorothiazide-lisin opril 25 mg-20 mg oral tablet) 1 tab(s) [...] in the (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 [facility] MAGR Intraoperative Recordon 03-16-2024 MAGR Intraoperative Record MAGR Intra-Op Record Summary Primary Physician: JACINTO OLMOS MD Finalized Date/Time: 03/16/24 08:54:32 Pt. Name: ENRRIQUE MADERA /Sex: 1965 MALE Med Rec #: [id number] Physician: JACINTO OLMOS MD Financial #: [id number] Pt. Type: D Room/Bed: / Admit/Disch: 03/16/24 [...] Diane RN Baumer, Erica RN Role Performed Garde Manager Garde Manager Garde Manager Time In 03/16/24 08:50:00 03/16/24 08:50:00 03/16/24 08:50:00 Time Out 03/16/24 08:56:00 03/16/24 08:56:00 03/16/24 08:56:00 Procedure SI Joint SI Joint SI Joint Injection(Bilateral) Injection(Bilateral) Injection(Bilateral) Last Modified By: Shahrzad Ross RN, Erica RN Baumer, Erica RN 03/16/24 08:54:22 03/16/24 08:54:22 03/16/24 08:54:22 Entry 4 Entry 5 Entry 6 Case Attendee Thu Crews RT (R) Massimo Moffett RT (R) Rashmi Giang SERVICE BAR CASHIER Role Performed Processor Solid Propellant Processor Solid Propellant Scrub Personnel Time In 03/16/24 08:50:00 03/16/24 08:50:00 03/16/24 08:50:00 Time Out 03/16/24 08:56:00 03/16/24 08:56:00 03/16/24 08:56:00 Procedure SI Joint SI Joint SI Joint Injection(Bilateral) Injection(Bilateral) Injection(Bilateral) Last Modified By: Shahrzad Ross RN, Erica RN Baumer, Erica RN 03/16/24 08:54:22 03/16/24 08:54:22 03/16/24 08:54:22 Entry 7 Entry 8 Case Attendee JACINTO OLMOS MD RN, Lianna Role Performed Surgeon - Primary Garde Manager Time In 03/16/24 08:50:00 03/16/24 08:50:00 Time [...] 08:51:00 Participants Aranza Siegel MA, Rashmi Giang SERVICE BAR CASHIER, Shahrzad Ross RN, Verona Boucher RN, Massimo Moffett RT (R), JACINTO OLMOS MD, Dion RN, [facility] Last Modified By: Shahrzad Ross RN 03/16/24 08:51:57 Patient Positioning MAGR Pre-Care Text: A.280 Identifies baseline musculoskeletal status Im.40 Positions the patient Im.80 Applies safety devices Entry 1 Procedure SI Joint Bod (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 [facility] MAGR Preoperative Recordon 0 03-16-2024 MAGR Preoperative Record MAGR Pre-Op Record Summary Primary Physician: JACINTO OLMOS MD Finalized Date/Time: 03/16/24 09:10:51 Pt. Name: ENRRIQUE MADERA/Sex: 1965 MALE Med Rec #: [id number] Physician: JACINTO OLMOS MD Financial #: [id number] Pt. Type: D Room/Bed: / Admit/Disch: 03/16/24 [...] Signed By: Adrianna Ceron RN 03/16/24 09:10 [facility] Patient Handouton 03-16-2024 Patient Handout [facility] Progress Note - Nurseon Progress Note - [...] further nursing questions and transferred him to reception interviewer to schedule his next procedure. [Electronically Signed on: 03/16/2024 11:47 EDT] Diane Aleman [Verified on: 03/16/2024 11:47 EDT] Diane Aleman [facility] Lab - Reference Lab Resultso n 03-13-2024 Lab - Reference Lab Results [id number][facility] Outside Record[facility] 03-13-2024 Outside Records [id number]#1.[facility] CNPShivani 03-08-2024 KATYA Telephone (NIQ) -- ENRRIQUE MADERA ([id number]) 1965 M Date Time Provider Department 03/08/24 KINA MCDERMOTT NIEvgeny During your visit today, we recorded the following information about you: Dionne Caballero 03/08/2024 10:36 AM Signed Call received for Kian Mcdermott APRN.FIELD LOGISTICS COORDINATOR regarding Enrrique Madera. Caller: Self Patient Identified by Name and : Yes Reason for Call: General Question Please return call Is there any additional information the provider should know? No Last Office Visit: 03/01/2024 Next scheduled appointment: Visit date not found Best number to reach caller: [phone] Best time to reach caller: any Is [...] most likely benefit from an L3-4 TFESI. Kian Mcdermott APRN.Kian Black APRN.CNP 03/09/2024 9:02 AM Signed Addended by: [...] called AND wanted a call back from HANDLE MACHINE OPERATOR - Pt have questions regarding surgery Diane Gonzalez, KRISTIN 03/14/2024 1:48 PM Signed Neuro SPINE CARE [...] [M51.37] Order(s):XR LUMBAR MOTION 4V AP/LAT/ FLEX/EXT [[id number]] Order #: [id number] FUTURE XR SCOLIOSIS PA STAND/LAT 2V [[id number]] Order #: [id number] FUTURE Prescriptions as of 03/14/2024 - BUTRANS 5 mcg/hour Apply as directed. - buPROPion SR (WELLBUTRIN SR) 150 mg 12 hr tablet Take 150 mg by mouth two times a day. - diclofenac, EC, (VOLTAREN) 75 mg EC tablet 75 mg. - FLUoxetine (PROZAC) 10 mg capsule Take 10 mg by mouth. - gabapentin (NEURONTIN) 600 mg tablet 600 mg. - lisinopril-hydroCHLOROthia zide (ZESTORETIC) 20-25 mg per tablet Take 1 tablet by mouth once daily. - naloxone 4 mg/actuation nasal spray (NARCAN) Use 4 mg in the nose at bedtime as needed. - sildenafil (REVATIO) 20 mg tablet 2 TO 3 TABLETS, Oral, Daily, PRN: NEEDED, # 90 tab(s), 1 Refill(s), Pharmacy: [id number], TAKE 2 TO 3 [...] Erectile dysfunct (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 [facility] Coding Summaryon 03-06-2024 Coding Summary HTMLBase 64 KfozntclVPa7iOd+PGhlYWQ+PE 3ZWTXxN68jdSQliM8vE8QJCLjD AlwqUKXNBLqEZnExunSrYV9eyQ NjZXJu IC8+XO9kRATxUsyzdFFkl3M3bI M0K88riv7aCXbwrWK5GCLyWoUs xklhw9hgqQk8LGxpYixdEbZl HJGomO20ZLE8gM94Xb19xZKcbL Rxb1uwwZr0GbVtGXPrBRN9qFim DSxuf0EvNOEhD48gvIBle6R3 XEOjoZhyaSZxReZqaSM4hY2lLV hczjxlh6zvqefwIdx9tr49pQAl z8Y4nCK2F8UjitZ7USKqbCJb OlkkmKPOjT9mmdkqg1nkunlyMn IsCBLeORn2GAm1EKYdjIxnUbYa ZO51SSY2DMZxxdLhV3CfLRHa sIzuQaF8u9F1Jh4AL6HNEaeqB4 VNTUFSWTwvdGQ+IQ99dm83J0Kz UzixCcn1QQCtVEU5wNW9zW0r MEMpOUgti5B0sPG6K9XtslWaeo 9ut0uyTXDwRJruB36mtDWqx9S0 ICObvME9RUZjdGwwTjJidI72 Oyc+GQQzeBdrk3IdFjrpa5iey4 afoOw9LxrvKRGadkItnIrmFAI8 c0QeFj8wHBCssKN9kAL5hE4n SuIeBmQ4NOjmS805ZlQllGNhMy dlQ32tY4AqoPV+IKInMma0ONXi sLzyLB0pI3XgFFKiitsbdDKe bElbYN6gLDMbmlbrRZNgcP9cKD BfU7z5DwLxMzZ6ANxmI8AcTVNp inhiLc24sI5uUmJyNoS3NTkd H5FyprQ4KNYctWOzIQvkOPH6Z3 4wp7C0HGXdHMMjUYB9hNJ5tU1s bGlnbjogbGVmdDsgdmVydGlj TEgiXCchK103LUBrcUztDwKgKC luZyBEYXRlOiAgMDcvMjMvMjAy NDwvdGQ+NSAwLNO5zFteHHHh rFUzGAeoVe0zzBzbuDukIY1aPO GcrypzOHEupZ3fLPJdnSAduWrj GP3zMMVgvrxfo388HiRtMVC8 FHWapVGkG2JxxJ8mMaDiEUKcEK KpU3MlkOUmCFkiW455SJttSoW5 TNCxhuZnT2LgPTJijAyiBwS3 i9N0Kl8Hc9MlvunoL5UsnZVsZe ViRkchUDg9J6QaPypelJE+PC90 IKTfWV17HSz4UOW2uIwvNBnn YFOjT3DunL3aZsAlGTIyWDKwXu c+PHRhYmxlIHdpZHRoPScxMDAl CbTdtVsoQY5sTr6iPUZtAUFr yXhyvNPgTuElq9alBNQzSRveMQ 4ukWtjE6IkuUT3YHHdu7n3Fp41 N26jD3KocEP+LTIauOI5zTW2 bP5qIcBhZsI1NFfnZ558EqQajH EyOytzq5vjy5uxjLs2UnC7YJVl stXhlOniFUO4t6SxNl03W11p IHdpZHRoPSIxNSUiIHZhbGlnbj 7orB7rDz2+YSCegXN3dPK8pJ9z VwXtLeL6GMnsP298GzJmlKHf Mauud3eaz5vtkFk8TvQwGSVkll KmsMhqCUF3p6IoVe02Q3JytRfc m7EiLaf1zc34nKYeg0A7qCH0 G6OnYWLffazafAHbyRduPW6gXJ UweitjVTVqxQ7tPCBhP6g8DyGv YzO6URxbC6DwoaN9FBDkoKTh JIOozECXhP1hlqdpn2rrmlahOl ZnMJUoQSt1HSp7LXMfwWcxVbXc WWU5VfF6CAU2yCYolE5yxDqh libcbZ9jPxr+KPE0fQZhwGNCUL 1lOjwvdGQ+CDZqLHB6tNkvIYqn ZAWffB2eJREpN5p9VfXhKoX7 SQvqZ1ImvbO2MYNwdKRpXRErfB NUbT6shuorh3qkslvbBpJcGYFy LSd7QNo7RCKhvSfwMrOwPDF9 OmA5GMG0dWQekS1qcRmccrftdG 9wOyc+UdwzvFhwTCQ7TZl6E0Oa Xrm5ZKVhcIifIF6vnEPdHKem Ed7axNeufChpWB7aFWQqmiqbo2 76ToKao0fzJUOdfQQqWZxfAEU6 T33sf3Q3GNIaIDLxWNH9zLU0 rJ5pbSsfxgzzzBAbpOzwmfHjiG bmBSsuWEwiQ730AAFaaAoyOyRv FWr0Q1UcAhk3ZQFvxEqwCX9z yCNoSFdfMm6ljFdncPjiBV9vVM Kleufmw364XcOtm9avYSOnlWXu SVkwRIO1L86tl8M5LYNmRRNu MIS9xCV1yR1nrBllzdstoWCnxQ snghKusKdjEWbxNSgtT123VYQa kWbaTzJsnCk9V2SnWfy5YQQn bAhxWG9tsFDeCZaoCc5tcOnuuD jlPE8dMYTedkuod360HeUyl9eu CAOgrMSoSJbwNHN9E50rv2H2 KTJyXXJjVOG2rGL8gD5bhQvini ogbGVmdDsgdmVydGljYWwtYWxp H636CFXntJbnTkItyYepskVe FWwyBWi4X0HvGijstYC+PC90YW AkCT97fOOfeCHeo9ejuRx7JiUl KPUbJKW1qMsaSComy7NrXATo T40wvYQix1Z6ZMBtzMwzpNAmOm WztZJ3uF1lKOeihaepy2ckflvj Lfzwr5swcd55sN78J11xBCzk XVEyAVHsUGXfXSTyyYwlqa0vtS 9wIi8+NQScsDA3lUR2lC9yVYSu UsP8QThdR675OsGriTSyCbwa j1fqz8hzvMa7VbB3KGIskfXamV ypNMV9r5BiGr34L03lGTklABAi IWQkGXWjDRWqsPhiye5ffH6y Ii8+LUSamRS5yPV1vS7eRfZgEm H5OAhnT565SkOmoHQeAyudP72k J4AkhIK+QEFaVhf6SKFipLgj AG0kjCPhHEsiLy7dHVO8PvEpQi FdOXjdQ3CeUMItmfmbhxuldDL7 HOAyYHRcqD69Dh5onHqvWYMf aUNCsJ2oimjoe8iljwseGzJuLU AsKUj3AMf4DKXbkJzuTmTlNJR1 GsR8PGW0tOAxnC7wyOfvbtit yV1vL6AaBBVbcijjWh09gI5bEn ZhOkI6TSkyYxu+Y9TBPPVXFGDH GH3DWbVUYV47NV62fXCzs4C0 cPG3W3PpKRXseqeimfvwrXJ1HJ QpHMMtsO54aTLvRDfwWk5uk4S2 y752CGSiDFTnjB81Fl2jsSgi IFVvxIOSdI5rbaxbo6ckcdwuYr IwCQZfYZr5QFa4GZRinEjnYoYt UNU6OjA4UYA6qLLnzR3bbHaa otyimQ6oAut+CNPcOXDaLKx6Wq wvdGQ+IFVqNHJ1lOlxIYegMNRk iJ3nADAxP1k0CdHeRiP1LEmf I5VnYZPqylbdFb96cU2yFtApUy O1PRxiS3KoppT4MLBamSUpXZbf HQV5S47bz5W2ERAzYVXxDSB0 xYW4eU4zmUxevjcayFIjgSoqon OuoBfbACnrYDwlT310WZDuaTfq XuL9WZejGMDuAB19OS55qROy j9Z1tWR2O5GyTNYdbddlxornpM L0CVLuEZGucA58zKCeDNndJb4n w7H3z482XZSmBNHmwS98Fp6j cScfMYXemAAXpB9eliayn2kzsf irLbHjOWFmJNj7LGp6ASEslBuh QhFdLNQ4IsY2ZZQ6lBPkhN3h xMlpuumqvM6gOjs+TUFMRTwvdG Q+SKQjCRB5kGgwGBezXZTvwF1x MXYaM4z1JkFrLvH0GFdbQ0Wi AIMwdwcfDe87bH9vXfRdFvL7EE fyP2DllnS0HYValMDjTHiuEBI4 Q05uc0P4DDIxAJAcYWB6mQM7 lW6moIbohhlghZHswPzbkvFxsN kpKQrfSYnaX613ITOnvLcpPkZc fDLWkSHjVOQ5IC32TW32E8Cn PjwvdGFibGU+PHRhYmxlIHdpZH XnWIfbSYErLeKlkBcnYD8uXt6l TIXeSKLqkClfwPZnTpAfd9hn CMKjKDksMB4ylPiuY8XyvXP7DY Zuc0t0Ez85D26aT6OdaEE+PGNv bQJ5pFK3mR6lEaHgWuC7GZrv R270ZaCufYDyHsdvf6hlt2ydqY h0SgVaIVNnrkGbqXuwSDV3g0Lz Ow05M98wLOqiKGJeMGEnZSDg ENBkePnbnb8ykJ0wPl4+PGNvbC L6dWG5hS7aVtEeBhY6KJhcF595 GeAcnWRxYuprT69mW1IobYM+ OQBgPkk0JDRbpKrwNR0wzDZnRM hqUf6tQMP8KjAtCdZsRHohA1Ll CIEckfqqzzzyoXV8QFLqSAGv gV07Zu1coYumAr9oRNCoAWV3BJ HkpJJaO1KbzB5lYeOmZKPcYDXy D6XqeRKkAUjhK970ZBqfKdG0 JWWgqgIgL9WtSBGjmAbmNsG7c2 D0Uc0BpAchnEQgFC9xOxZnKUc2 A5OuTai6QJUseTagAI9hvWGr DAypZz7onEdlkYczHF3yHQYjfn gjs141ZkCsh7ctPDKwxLKmPXxz RLM6T64zy3O7VUUeGLSePUA1 iXO2sJ3naQbiuegsdCSkgKgzdg ZcfVxxIDnuUFjhH786YSIfcEyz HxNLMja6Y2IkJba6SNWzoPhh NS6gpVIhEYibKz5luNgozIhsEX 5kJULjrhkmi932FlNvj1giKYYy pTJuQTngJZV6O93by6B3BOMq WGGvPOI6kIT0cP3yyBwrwwnvvS ZyjOfmitVnsPioGKfpYNogE393 GQHbwCrpKr1OJqx9T7QvUii3 BVOfqQiiYD7acPRkPJnjAb3mkI kvrVtgFV9cIKYxwarjf183OhIh k8auAJKvaBOgRKjjRMI8Q46x l7K0FDIhTFEuLOE5aYZ7cH5vxK lnbjogbGVmdDsgdmVydGljYWwt HGqrV031GGGbqDwcMxUusXAd OjwvdGQ+AZ03sh32H0TrXjpoCr v1HFLsVIH3dKV5fF4zORXiYEjy j5T9wSQ1R7NdnkXdzs1kg3pt YXB (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 [facility] Progress Note - Nurseon 02-13 Progress Note - Nurse Patient called off ice to notify that the Butrans patches are [...] to 15 mcg patches. Called [facility] pharmacy and cancelled Butrans 10 mcg. [...] that will be sent via mail from [employer]. Patient states he is willing to try anything. Patient requests refill of gabapentin at this time. Patient compliant. OARRS reviewed. Prescription proposed to provider for review and approval. [Electronically Signed on: 03/08/2024 15:29 EDT] Ayden Lovelace RN [facility] Consent Formson 03-05-2024 Consent Forms [id number] Normal [facility] Inpatient Patient Summaryon 03-02-2024 Inpatient Patient Summary [id number] [place] [address] Patient Discharge Instructions Name: ENRRIQUE MADERA : 1965 Patient Address: [address] [place] [address] Primary Care Provider: Name: DEVI MUNOZ DO After you are discharged if you find you have any questions, please, call [phone] ext [phone] to speak to a nurse. Discharge Diagnosis: Prescription Information: If you have been given a prescription for narcotics, seek immediate medical attention if you have any difficulty breathing or any sudden status changes such as confusion and sleepiness. If you or anyone you know is experiencing suicidal thoughts, mental health, alcohol and/or drug addiction problems; contact the [facility] 07/03 Crisis Hotline -text 4hope to 741741. If you received any narcotics, sedation, or [...] business decisions or sign any legal documents [facility] would like to thank you for [...] a day for 30 Days. Refills: 0. hydrochlorothiazide-lisino pril (hydrochlorothiazide-lisin opril 25 mg-20 mg oral tablet) 1 tab(s) [...] 30 Days. Refills: 0., OARRS reviewed 02/14/2024 hydrochlorothiazide-lisino pril (hydrochlorothiazide-lisin opril 25 mg-20 mg oral tablet) 1 tab(s) [...] the middle (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 [facility] MAGR Intraoperative Recordon 03-02-2024 MAGR Intraoperative Record MAGR Intra-Op Record Summary Primary Physician: JACINTO OLMOS MD Finalized Date/Time: 03/02/24 09:59:42 Pt. Name: ENRRIQUE MADERA/Sex: 1965 MALE Med Rec #: [id number] Physician: JACINTO OLMOS MD Financial #: [id number] Pt. Type: D Room/Bed: / Admit/Disch: 03/02/24 [...] Gonya, Kellie N RT (R) Role Performed Garde Manager Garde Manager Processor [employer] Time In 03/02/24 09:53:00 03/02/24 09:53:00 03/02/24 09:53:00 Time Out 03/02/24 10:00:00 03/02/24 10:00:00 03/02/24 10:00:00 Procedure EPIDURAL STEROID INJ EPIDURAL STEROID INJ EPIDURAL STEROID INJ TRANSFORAMINAL TRANSFORAMINAL TRANSFORAMINAL LUMB(Bilateral) LUMB(Bilateral) LUMB(Bilateral) Last Modified By: Shahrzad Ross RN, Erica RN Baumer, Erica RN 03/02/24 09:59:36 03/02/24 09:59:36 03/02/24 09:59:36 Entry 4 Entry 5 Entry 6 Case Attendee Massimo Moffett RT (R) Rashmi Giang SERVICE BAR CASHIER JACINTO OLMOS MD Role Performed Processor [employer] Scrub Personnel Surgeon - Primary Time In 03/02/24 09:53:00 03/02/24 09:53:00 03/02/24 09:53:00 Time Out 03/02/24 10:00:00 03/02/24 10:00:00 03/02/24 10:00:00 Procedure EPIDURAL STEROID INJ EPIDURAL STEROID INJ EPIDURAL STEROID INJ TRANSFORAMINAL TRANSFORAMINAL TRANSFORAMINAL LUMB(Bilateral) LUMB(Bilateral) LUMB(Bilateral) Last Modified By: Shahrzad Ross RN, Erica RN Baumer, Erica RN 03/02/24 09:59:36 03/02/24 09:59:36 03/02/24 09:59:36 Entry 7 Case Attendee Shikha Guzman RN Role Performed Garde Manager Time In 03/02/24 09:53:00 Time Out 03/02/24 [...] (R), Massimo Moffett RT (R), Rashmi Giang SERVICE BAR CASHIER, JACINTO OLMOS MD, Shikha Guzman RN Last Modified By: Shahrzad Ross RN 03/02/24 09:54:37 Patient Positioning MAGR Pre-Care Text: A.280 Identifies baseline musculoskeletal status Im.40 (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 [facility] MAGR Preoperative Record MAGR Pre-Op Record Summary Primary Physician: JACINTO OLMOS MD Finalized Date/Time: 03/02/24 10:04:32 Pt. Name: ENRRIQUE MADERA D.O.B./Sex: 1965 MALE Med Rec #: [id number] Physician: JACINTO OLMOS MD Financial #: [id number] Pt. Type: D Room/Bed: / Admit/Disch: 03/02/24 [...] has sleep apnea- uses CPap. Pt denies coldf/brigitte symtpoms, SOB, diabetes, CP, or pacemaker/defibrillator. Finalized By: Travis Ma RN Document Signatures Signed By: Travis Ma RN 03/02/24 10:04 [facility] Patient Handouton 03-02-2024 Patient Handout [facility] CNOVon 03-01-2024 CNOV Office Visit (SPNSMN ) -- ENRRIQUE MADERA ([id number]) 1965 M Date Time Provider Department 03/01/24 1:30 PM KIAN MCDERMOTT SPNSMN During your visit today, we recorded the following information about you: Pulse Respiration Blood pressure Weight 89/minute 18/minute 132/71 84.8 kg Height 1.829 m Kian Mcdermott APRN.MIRANDA 03/01/2024 3:34 PM Signed SPINE SURGERY NEW PATIENT This is an in-person visit. PCP: Hany Olivares MD REFERRING PROVIDER: Self SUBJECTIVE HISTORY OF [...] for thoracic compression fractures. 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 Daniel Childress L2-5 decompressive laminectomy with partial medial [...] 09/09/2020 Added automatically from request for surgery [id number] Chronic pain 03/01/2024 Depressive disorder 03/01/2024 Erectile [...] gabapentin (NEURONTIN) 600 mg tablet 600 mg. lisinopril-hydroCHLOROthia zide (ZESTORETIC) 20-25 mg per tablet Take 1 tablet by mouth once daily. naloxone 4 mg/actuation nasal spray (NARCAN) Use 4 mg in the nose at bedtime as needed. sildenafil (REVATIO) 20 mg tablet 2 TO 3 TABLETS, Oral, Daily, PRN: NEEDED, # 90 tab(s), 1 Refill(s), Pharmacy: [id number], TAKE 2 TO 3 TABLETS BY MOUTH ONCE DAILY NEEDED, 182.88, cm, 12/16/23 6:36:00 EDT, Height, 89.3, kg, 12/16/23 6: (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 Normal [facility] Coding Summaryon 03-01-2024 Coding Summary HTMLBase 64 HixslxvlMTc6aQr+PGhlYWQ+PE 0ERANcG06hwASxdT9oU0JEYOeW RkoyNHBLDPoFLzQlvzRhMI0qcZ NjZXJu IC8+ZC1pPZEpInbqmZAqm9L7lR K0U61hhq0bSPxrtHG6ZSTmSuSt bmxyj4xsyCu2AFpsLbhdNkKe FDRloB87UEI4eD38Fj90kKJtkX Esy6bnhTy3ScSeHCOqWCM0uUcl MSlng8RaMKTlX44heYTov9H7 PTVtlZjpwWAcLpFkrMR5mY9uCK jblhurf7kbvuplKyr9wh86wVHr w4E9rCE1J8UlxyR7ECMmnWPo YcrviBIVfO2vqyjeu2sxsrgzDh EuQQFbDOp0KAn1SLKbvGztPjUp XC06ZYP5YMXhueDwM5CfLVBq lTtjQeX8p6C5Nr7KK7DYRegfM6 VNTUFSWTwvdGQ+GI97ob85J1Ce LqjsUac6CSVoQXM1tWH1tV7j JOFtSYnot6T7kGP7R3JwpaPnyo 5tl2csJYFaNXgeL46tbMLkz0K6 THWvyZB1HZApoLuoOmMkvP56 Oyc+XWTglLbzl6IbQvtjj4opp1 tdkOn9CchbBYQesyFoyLjfNBI9 w2VkOo5nYAWuyRS1hZM8nH2c UhXdDjO3IDxqF148HxYhyXWkRa gnE21wE1WlnKV+UMEcMrv6SZQe uKpyXH4dT8GzBFMjqrsadJIs rMexLQ3lWPRtyoinZKUyrH2bRI HdF5b9IiEaJmJ0RFgqD5NfULAa mmynHu48lE3mSwEpYlW7JPzy Y7FkdzU7PPXmaUBtHMmnVRG2Q1 9jm1K2WSXnHXVnXRA7pUZ0iB5g bGlnbjogbGVmdDsgdmVydGlj UJzySIbjC330YCJhtOfsCaKiGN luZyBEYXRlOiAgMDcvMTgvMjAy NDwvdGQ+OOEzCZK0xPkuIDHn wFFfDCqbTl6izTxhtZwiVG1pGY ZzqnwyVRDngR2fCIFolHKwaVnr ZY9uIQMthulvi717LvXtQHX8 IYXalSDxN0SdeG8aMvWlMWTaES YcO3QnrIQgPMyyT191ABbdWgG0 HOUrfnMqY5WqNVKshZttNvJ1 s7Q7Ry3Yp2JhhgcpP2NmfUTnMi XmIfmhJMl4I5EoMmnojFH+PC90 CGIsJL85HWx1ZXP1wKvbWAey CPCiK3HyxR5eEjPuIQFvGPJeGh c+PHRhYmxlIHdpZHRoPScxMDAl PqBwuLuwKR6dVh4jXKPtKJZe fZsxxBTvRvYob2msKMOrBDbhNW 7onBwvV6FyvDI9EMMaa2c5Jt45 R56kB6ZfvCG+NNRmaGC5vIW3 gR1mIpTdHuP2RXjvK056HpQoqM ZiOshhl1vwg0pkeXe6HbN7ITFz ebXluSmuUUX5n0IfXh71H81b IHdpZHRoPSIxNSUiIHZhbGlnbj 5cbP7mOj6+KTUftTT6fFL4sN5z HmEnUoG7FJeaT138QeQevLFl Vuiex8vml9gjfVh0UlLuFDFczv UltGfkQFA8r9BqDf59G7SomVzj k0AzYbm0ug03cKBqh8E7jRP3 W4GePZWbqkdstHYdvOrpPR0fCT UxxczaXMWjfG7mNGTdO9g0LgBz PyM1YUuyZ8KxhiQ3KFXcvHVv CEDzePWFjM7xmejqk1qhkdyoQu XvHNBrCWf3XCg2EOCikKyuXdZv RYF2CyV6KTD0aMEpsJ9yeFpk nsvsbS9aEcy+JZA5oMCpaNNSXL 1lOjwvdGQ+WVAvILO6xVmkESvr NKOpdR4jSSWgS2m5AfAjIeD5 GEkkW0XxacC9YPEtkPVfAVUjrW UNcM4vigtwi6jprepnIlHpZRLl VEc8FLb2FJOfgNphYyInSBA5 RrN6RSL2yIJxdO4zeQctyefwhY 9wOyc+IjdakPagDXV9YDo9V3Vh Qss4VMQakNpaPO8ofFJoMXyt Hi2dzXiknFyyHS5pUABatiudy9 31QqKob4icVTFkwLFwEIksQRM2 M17hi7M1AWHlCYAiJIW0mTI8 uS4ubCytkyoseVSzoZxscuXjdQ rtOBusZPslR648QTUiiUpbYdMq BSt5W1BsWac3WUJzkOaaNG8t pVVnXEwoBt1srVliaZehDB0bUM Xvllmax901LuTih9sxMGLwvUNq STykAJV5G86jr3D5KTEzLGIs FMS7aJA6cZ5rbUjlxhzgtMHkeM ixmoOsnNoyVAnhVPxhQ106DKJy vDxuYrKvxSj6X1XhYzz1SMId wYupZQ7hhZGnDIwcWz5bnCbksE yyBJ8eKREvshwtj143SeLdm6es DOJzvLQyRTqfCDI9D23qg9T2 ZIKyMJJaHBJ0eVO2zL1zvZlrnl ogbGVmdDsgdmVydGljYWwtYWxp X305FJDatKyaRlOhhNjgncVn DBafFXz0N0KoAsdxrTF+PC90YW LpWC95jSTrvCWuk5qhuEi1CxOg PJPgOOF2hLuoBAwqj2PaSDHx S95tfHGgy9T6SCFnfYhaaFBsHr WvwPZ0xC3wNOdwrntpu9agherz Gdkqb5yabs92oI03U96sWZrb LBMyLJVgYNYrUHOupQhfgl1vbQ 9wIi8+KGPcjMG8bGC7iM0dKFIv SgW3NKacT183BzLejXBjFhct x9vla1trdOb9QfD5RBSgpeDhpY qcHBU9g3DqFc62R63iBVnjZNIu YJUoTPPcILRsyIhalg4mwC5t Ii8+BVJfiOD4qGK7qB2dSiQoAh O8QBkaS754LhBvqBTaPsepZ29f H5VxpXC+BCGeRnw6ULBrfGuc TJ9fhSUtKNkuAo2xWAF1UcAnKy SqPLvoH3TpWOMfpohgukcjdZM6 GWGrWZDmrV71Wf7uhAcvNEBn kNFSjC1wccjgr3klmuqbCmUxEI PqHVu2EJg1LJFhjKobAdAnMXC3 AdT0HJE0xGWowT4yiTacbpmg aC0kY4IfXQWywkkyUk47pI9jYn WoUiB1XSqvZwp+P0ODZWZIYSWA ZJ1XSaOOOZ03GY39qYZjd3A2 vOQ3P8EkOSHwhhcytrsviXT5IK UhHGHsrI89wTWxZHuqAe9yh7V8 x804BPMfNUVroP44Kh2jzOdc AXWdcLILbS0ufwnub6ccztwnSb UsATDwNQi4MAa0XBNeqWoyHqGu ITL7DoQ5VCC8rGNhjQ2guXoi jlbvoL8sKcc+NTQpLJXsMVd6Au wvdGQ+GKMaRQJ5dCuxVJbcMVKp pP2yUIUyB0k1RsHpBrZ8FVud E2WnRWNcthlgYl28bY8bDsCoAl W1HIhcI9RmgtA6CVQpzHVnRTvf ZPO2A98mx5E5ZRCuTKIrMQM9 fCB7bV0qzRlesjytyTBbjPmshw HftWdbCDpfVJigH758VLGvdQcx GsF2SWcgMBCcKV37DL89pTCj d2J9rTK2K0UgLSKnwvcymodczS N7BWUpAZVfoS49uXMcMRmlQf7v t9V7b578EIQqRIKpnW51Hq9b fUreDCGovBMGnP8dgauaq4kqze kkQnJbMPUfXZq6SFb8TZMqtIsa VxCtWXF5WqS3KOM9gHPdvO1b vCniyuyioK0xRyf+TUFMRTwvdG Q+OTJxFCV6uPewZZfgKNDpaK8b YTExS6p6FsElGkV5WYloS7Vx QUVvjtlqSb77gO9dDhNqJeH2KE dnD3JzjgQ6BARdjKEmLYmmCIU5 Z35si2X9WFYlFSPeNKE2iYN9 mL0niIslxkmiuYBfmXjwfnJglW osDJqnEZajA989XICgqWudFa3K BE93AG39M7NaZxcrsUKsrLB+ PHRhYmxlIHdpZHRoPScxMDAlJy QevUpwPI8fYx3wIUPsMVTobOas dNMdFnPfd4vdGWEsVUvtLB1m vReeN0QllAT0RAKmi1w2Ph04C6 0iU0XkfMZ+FPPgpCG7sEG8pE0y TaIjJrQ2NAnmH574ZeSkbFWw Xbude3rte6qwcVi9QrJvPKVdaz HlkYjkOPU4c0JyHe40D81rQQhz KOIeVRCaHIDjMGSpcIhaul3o gR7zUo2+VIUyzIO6wVE4cQ3wIi RvSrM1LZibC845XcFhdBVfOeqc U45qD9LdfJD+ZRAwFdn0EFFp yMpdEH8dcLVvJSegNs1qVJZ6Ma PpCzQyHRenT7CkVLDpwshalhpx xWC8DTWlQAJrfS03Od0vjKti Eu7cECOnWPW9NGCegHIbX7SywY 2nXgRgQTEgOVFfW0FiwSKkYFuj Q444CYvhRlL6KOSagyVpY3Pk IGHqqTxjTdG3i1B3Wd5OqMepeV QkBO1eReWyWLs8V7CrMzc2TSTn aGdrJF0vzWVlHUrbEj5qrEik kBipHO6xSGTzffwqq002YmXwx7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 SUzxOVB0Z06xi9K0OGNdSGZu YEV4kFW2kW8cjMwqergquKFpjJ dkkmKvrNldGBqnWFgbY625AJZy uWnmUlGniWa5Y7EnGrq3QUOl jJbtQL1saLMvYBqyRb3pzBjxlK whQK9qJBJgpgfay820CiOfp4hg AOUctGZtCLztEQW5M76ff5Z2 FJJbDSGaRQV3dLZ6rI7vpWrrbo ogbGVmdDsgdmVydGljYWwtYWxp L418HNMjyDymUxYimYwexzVy VUatHOa8C1AsNrjkvMM+PC90YW DpTP25fHDxvANbx5nqqLe0PrPb ENYmCVN0cGmsMGexu4CjSJWp E97gvTQxq6Y1ALQhlAvzqVNqRk HnnPR5vV8fXLhlclgfa8edismf Zsnkv5oafg04jN08G90mVByq ETRiYMIsTBXgLSDvzQfuom9spN 9wIi8+BFOfcEF3cVK3rZ3wXKKz XrS9DLiuL866KxHmgAFhUofs o6yml0rklGy2AqO2TWLzneUxiX odVHL0c1LfCg94X10nUJwgQBSp BAJkYKXaIEYalMevid5pcB0i Ii8+DJFtqPK3kAS4mP3rSeTdSu B2NQydD325ZbDumMRbQofqB83n D7DwqGF+SIYdXvk8EFIfvXkc UL4rjYSaAGziPp2hOOM1CkTqOs OiFJdyE3FeXBKnfnythfaqoZD9 PIRnTFHfdO13Nb4vdCwcIUMk zWYWwS6ejbhjw0xgvtirFhHgKR PoOXn6IKd4UWGmqLptCgIyJTY7 ZbM4PPO0xEGkxT3xdOkjyfje kL8eA2HvHZTxvdohKz08kU7fSn PrDwP6PHboDme+M2LTVSXSAGKM IZ2WUbIVZH49EW60gJFhr7F8 lIZ1C2FnPUPeijsnstutjLK2AO KfXPUzwN05gYFhJNzcAv5nv7P0 g012PTCbNADgoY60Is6llTft QLXqaSSCzF7pyjjnp2zdyniuXd PpLMHgNLw9OEa7JSXomJfyUxTn BMH6YoB2CMH7vNNncY2rjRqy oqwuwM7lViq+EBXdSPDjRTu0Rp wvdGQ+VOZzOEF9mJsqBLkvTWSs tG5rJMDuK6k3EqLgIrO3XJgf X1FyCLAdyglqMl81pT3vShNjQr A4HBrmC0EuxsM7XITjpCRiDJlz LVY2X74zl1K2DLHtYDLwGQN4 iCR6gQ6emDpesjdabASulLtlqk SzsLeeIAoiXRdtA070XKWxaCja ZgQ2XPhjAOJgCP00QT94jUZt v1E1kGM4W5RvGDGvgqhwtocweT I1SYHuBVFsuQ25tMVoMPpwYq0r o9O5a021MZWlROBoxK92Ot3n dCfuHUCljVHXlP7qwuqwb3hcme jzObUaOGWkBOz8LEq2NEBiiKam DfJaVEJ1VdF2UTJ0cHJrdB4w vCjpvnltoV8kDty+TUFMRTwvdG Q+ETMfFIB7wSpqDMmfDKKljK7e SMIlW1i1NrZgZyE8BVmxW7Ml NURiqzzwCw04pX2qXfZjCoF6TX gzK5DbeiR8HJMvkHMhJKemCFL6 D91vr2E7DEVcQTYjWZC5kHO3 eE7nuKrgcchvyYKppHatjtJkuG mxEFzqRDwdB536OZAmnRgsQmUy pVXKoAJbLVC1ZT39OK92K7Th PjwvdGFibGU+PHRhYmxlIHdpZH DrIJugXAAoHeYnoQogBR4kOi8q LIIdPGGnhIctcDHhMdPto1je MTPjXHawJW1elRzhS6YfuUZ9OC Wye1r8Kr44Z47oE4YaiIQ+PGNv cAW5qFU7fX2mVzUePfJ0YPma S835HjXxfQNqVytjb0fvx5subL p5AwYgEXYzrqLilPdvSHM7l8Kx Zg12U66zIFjkXWGyBWDqUDEm PCHvmOqube5fdX7jWh3+PGNvbC R8dSB5yK3zRiUdIxF5DCeqS047 MtKteRAqLqbvQ76lK7NhoFK+ UZXqTay6YDXmsUtsMF2ezDPgNV jkYu9vURY5EfZrSmXjHNerM5Rh VPOgnzxebqfclDC4EKZzBEBd rZ88Dq2eqBpiJf9zUNMhBRG1UZ RjsHZuB2SrkG4cKjHaBRSiJEIm E1WrlVRaPXbhW376CEsqGrO5 CMZaybHwC6RjMORprFkcNaN4m2 K4Ja4SjJvwuWHrLJ1yYaAiAUd4 O4UzHoj8ZGGqaOouFD1psLQf KOnkNw9zxKdnlYqoEV9tUZErhz huy666SrMst4tpFEOsfXYrDGyo RUN6L51dm0X6JVAxNUFuWFR5 rDB5wD1lqWyouhzweFKowMojxn JvwJdhMNcaCGwoM138ZUOkrTnd AxJJLmm5J0MvNtd6HJVymRnf GU2xwUQwMJduRn6rmHbjnQscVJ 6tUOJdtfyqb067CfJhd9vcBFLx lYUzGEkqREK7T30ob9W5OLNb ATLmFAS7rGP6gC0ykXrbrdvzkG TscKmmnoYyoJvvZAduXNjfK850 UIZmoNlhBx5INpk4Q4AaVsb8 DEWwwCffIH5wsQVhFUltDb9enS ettTlqDV2fTQPtewapd934KdNk m8jbIAVqrTZmMUqcKPL1J19t d4T9KTPoZANoQWR9bKF6vV1jrH lnbjogbGVmdDsgdmVydGljYWwt KXuyC528VSRlkEtjKoJnyVIn OjwvdGQ+BV90wt30R3RhWsyhGt o4KMXxRNV1nWS6gP2sHSCjSNsw k3O7pKN3G0QdccYtux9wr7fz YXB (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 [facility] Consent Formson 11-07-2023 Consent Forms [id number] [facility] Progress Note - Nurseon 10-14 Progress Note - Nurse Patient reports >8 0% pain relief for the first couple hours after his MBB on Tuesday11/04/23 [Electronically Signed on: 11/07/2023 08:36 EDT] Ayden Lovelace RN [Verified on: 11/07/2023 08:36 EDT] Ayden Lovelace RN [facility] Inpatient Patient Summaryon 11-04-2023 Inpatient Patient Summary [address] [id number] Patient Discharge Instructions Name: ENRRIQUE MADERA : 1965 Patient Address: [address] [place] [address] Primary Care Provider: Name: DEVI MUNOZ After you are discharged if you find you have any questions, please, call [phone] to speak to a nurse. [...] the [facility] 07/03 Crisis Hotline -Text 4HOPE to [phone]. If you received any narcotics, sedation, or [...] business decisions or sign any legal documents [facility] would like to thank you for [...] BY MOUTH THREE TIMES DAILY. Refills: 0. hydrochlorothiazide-lisino pril (hydrochlorothiazide-lisin opril 25 mg-20 mg oral tablet) 1 tab(s) [...] BY MOUTH THREE TIMES DAILY. Refills: 0. hydrochlorothiazide-lisino pril (hydrochlorothiazide-lisin opril 25 mg-20 mg oral tablet) 1 tab(s) [...] for Disease Control and Prevention April 2014 [facility] MAGR Intraoperative Recordon 11-04-2023 MAGR Intraoperative Record MAGR Intra-Op Record Summary Primary Physician: JACINTO OLMOS MD Finalized Date/Time: 11/04/23 11:56:54 Pt. Name: ENRRIQUE MADERA /Sex: 1965 MALE Med Rec #: [id number] Physician: JACINTO OLMOS MD Financial #: [id number] Pt. Type: D Room/Bed: / Admit/Disch: 11/04/23 [...] RT CT ARRT (R) ARRT Role Performed Garde Manager Processor Solid Propellant Processor Solid Propellant Time In 11/04/23 11:50:00 11/04/23 11:50:00 11/04/23 11:50:00 Time Out 11/04/23 11:57:00 11/04/23 11:57:00 11/04/23 11:57:00 Procedure Medial Branch Medial Branch Medial Branch Block(Bilateral) Block(Bilateral) Block(Bilateral) Last Modified By: Shikha Guzamn RN, Barbara RN Long, Barbara RN 11/04/23 11:56:48 11/04/23 11:56:48 11/04/23 11:56:48 Entry 4 Entry 5 Entry 6 Case Attendee Rashmi Giang CST, THOMAS F MD Long, Barbara RN Role Performed Scrub Personnel Surgeon - Primary Garde Manager Time In 11/04/23 11:50:00 11/04/23 11:50:00 11/04/23 [...] RN, Time Out Time 11/04/23 11:51:00 Participants Tiffanie Priscilla Talat RT (R) CT ARRTDemetria Sara L RT (R) ARRPadmaja Rodriguez Regina CSFA CST, KINDL, THOMAS F MD, [...] By: Shikha Guzman (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 [facility] Preoperative Record MAGR Pre-Op Record Summary Primary Physician: JACINTO OLMOS MD Finalized Date/Time: 11/04/23 11:47:01 Pt. Name: ENRRIQUE MADERA Shaila /Sex: 1965 MALE Med Rec #: [id number] Physician: JACINTO OLMOS MD Financial #: [id number] Pt. Type: D Room/Bed: / Admit/Disch: 11/04/23 [...] Signed By: Shikha Guzman RN 11/04/23 11:47 [facility] Patient Handouton 11-04-2023 Patient Handout [facility] Progress Note - Provideron 0 11-04-2023 Progress Note - Provider [id number] [facility] Coding Summaryon 11-03-2023 Coding Summary HTMLBase 64 CuecxfzuVEc3eEo+PGhlYWQ+PE 4NPEFcX19kzBQkeP8aT4ZVJDqJ ZjrqACBPQAxFCwIyigVxKZ2qdE NjZXJu IC8+XW6gCAZzPoedmVDii0M1bQ J6D31lvv5hWAsrqGP8RHIcHeFw tynam6msmJe7BRzuJuyiVgTj YXZoxV43GIG2nH94Gw13eCHmrS Vjh0osrHq9EoHgFUGsJWO8zZld CDczd5MhFQNhD88viGIcb0O7 NONqpLwlsAIxFnCiyYV2iO2nKV xhfebcu6zpipxlLbm1jv93uSFt b6W7tBR5Y4JfpcU8BSTomHIh NtygdHLTzP6wrxlxh1foakvkIr VxKRCgMLw5TOl1OQJajZcrTwYk IO60ZCY3JRQljzZkL0LjFFVb sAczVkI9z5N7Xi6UM6GUPhlcT2 VNTUFSWTwvdGQ+KU14gn80Y7Hx IythTvu3YZCeGJX7pJB9iO6m WDXlVOwob2S6dTP9A3UhulLhnl 9zx0skNCOmCJlaZ62fjNJlt6G9 PJYqiZT9NDSwxFuoAoDatK90 Oyc+XBPsrPqdq6DrZyirm3kvk7 fwhNe6JrnhVFWkgcLqlGvrPIZ9 n7AvBp8uNJQwyQZ0zJN0cW4g EcReVpY3IDkoT801RoKvqNDlTx guG67uK0BmgGS+VPZzFtw9YAUh jWgvUY7cF9VoQCNvbdotbITl kOabTU7cGJMjsrjoEWEhtT1zNF YdX9c0GbYgPzE2HVhqG0RaTCFu vmhfKj76cK5hHrIqCgK1AWyo Z2ZxavT9JGBamACoFYdtRKD4T8 7kj5S9QPMbSLGjKPO9nCJ8jG0k bGlnbjogbGVmdDsgdmVydGlj PDbwEWntM558IHRlhYtxViXeYZ luZyBEYXRlOiAgMDMvMjEvMjAy NDwvdGQ+LTCdTDT9yGqdWWKv eOGxTGnfHa5tvAntaKgaTY7lKI CwoocjZOXpbN8wQPFyuSKsnYnm ND5gZAWpdferd948KqOwUWM3 NZInlWCaR1CfbZ5cJdQkVAHuTX RrP3UzaWEyYBhdG317SMfcMaL4 XNNrdjKvI5NpNSQnmUptWbG3 g5G9Ak5Mr1SklhcbG8EkvCIoOt VoJvtzIFx8T5XmSdwnrRS+PC90 CZZvNA78PVq9SQT7eXrsVMxv YXGpJ5RsrP0jDwYuPZFlLRFyHv c+PHRhYmxlIHdpZHRoPScxMDAl JoLvjMjhAR3bPi7dSXWgNWFu sJizeBPeXnYau3zeGXZtKNfqXS 2ivJocR2UjdGF0ZWQsk9e9Tz37 Y11xG7LzrGR+IAPeqJZ4xHM7 dY1vSxYfJwU5XSfzG085PaOdaB EtAhpjj3spd2gjaRq2BuO2HEMj nwJqbXinULB0c3BfSk17B65a IHdpZHRoPSIxNSUiIHZhbGlnbj 7rxV3iIl0+JITigDJ6gVB1aP3u DpDbYzD9VEpzH509VtKljBLo Gpzks6byh5jsvUb9KpWrIKZptr FyvTclXHD3b6WuAj92O9YmkFuw h1NkWok8ze37eIRgx8Q6rRF0 F4RzVPLmjhfznLThiFliVK4hKV YuwhvfMQAruT1sTPYzE1k2LaDe YmV0PAfrF9PbqgH0LFKufCEu XBOdgDTTgU9wbzpuh1icpbdhRl MsYBSqPEx6TVd9OHAzeFsbDzGp WTG9PaE8JGC4hRAopB4cmPaw hhfgpH2mFle+HRB3zKPkzYCEMM 1lOjwvdGQ+XUAnEOJ8yFspPNeh CGLoqR9zOWHlW0a0ZsZwWxU3 JDwyO6ThqtC5XXByfYXtNTVpeG WRoI6yuwrxs5fqspjwUfZxNHNr BGc3DFx7NKCciFojEtNoZIM4 ZkO1DHZ4gGJyaR1ssSuuhpppjA 9wOyc+TvckpJgaXOS0YZv6G6Vl Civ9QEWweAirBA6ogMJoUYed Rm5hwVrusUrxLZ4pXYNovphsm0 69XeZel8bbLHNmtHKlFRenJKI8 R60qs9D9FSOeKDBcROP1uQD4 gD9prUtwvfftrDDbtCfdasBwiP iuTLwiKVstG229CTCryDtjYjQd ZQl5I4IxXep2PBCpfMhlEI5u sYAjEAauTd1cfSvlzTvqAR5zFO Lrgbpty437MeUtf5jbAWVbxBRd BOwsGCF5A53kw9V2PXChOXTp ASL7eUB5eB8duObblfrxiMSreF kpueLlsSssDLweMEpeD863NDTi vNawFtQmwRw4W7DlEyi8XHVk pGxdIO6kqDAgXJhvWt4khLywzQ stZH6uZLBtcmxqp431YnHil0ok NAWpbRCiMTpnHFV4L93ew5B7 EBBoGANtPMN8qSK4eG2wgKjoxz ogbGVmdDsgdmVydGljYWwtYWxp T648AIYewPlqDbNdkWbvsyXz AJsaPLr5S1FmAtwavYG+PC90YW CiQW03sRSrnTTxs7zqdXl7BwFn IIUpUIJ7vSbpXUffe4XcQBFk K98dzZJzc1R6KTFwvBwpdCLsZt LyhGV3yA3pSZbfkganm2ahjwps Rcxbm9gapt34gY19N44kFPpz NOTjZBBfDITmVNPjdWjziw6lpD 9wIi8+GYPlyZB9kUO8nL9pRCJn CiB2SSwnM105DiDaqGXhAdqi k6iij6hbfGg5JyX3HJXpplSsdS ahZPZ6s7GhTr05D71zUGnrTODa ZZGpOYGzXPUhiHgwyu9ygY6l Ii8+MXObjNQ5tAV9fD1bBgWkSy S6VHtmN833QeRafDTvRnbgU89g B0MwhXB+ABSzDky0ZGDyoYsv EA5ebGQoBOlgVh6mIGU3VgIeSk WvTFxrU6YoTLRdigknjmogfMN5 TIBgRFJuzQ51Hm9rtVpeRPHx hACNiF2jpranb2yltqloMuOpYM EqBJu1UWx9RCKxjXbzAnMnHSL8 VaR9FEO0qSKyhV3ybUvkpsag tM5vE9QpMRJlsxbnVh08wW2jBl FgYcL6CQmiSke+E2ZAVLSDGBIZ WJ7TSuGVFQ58OR91yXKhk7F8 wGS3A4FeCZBcdvopwtdkgUS6WR BnEHEleH23qCVoXUlrJw6ig8O2 y171MQQtGBBeuF87Wf3nmEzw PEWuxCHZrS5yvxzkn7emywylHr BxJUSsVRu6JIq1TPFdyKtgKsEu CAZ2KbN5PXN4iMYjiL2bkTkx htznmM8wHkp+PDOhKCTqCZx2Sv wvdGQ+LHFiFLA4sTdxRBciPYXt iR5nYEGjL0k2HwSgPzA4CAdf I9DcASCabhxwXq47nC8bOnGiHj D1JBnhZ2YshtI7WBTekNAoYJdd VKH5K15ce2M1SQEbBUZrXZP1 iEA5tS9ftEaeyyhqhCFgbEhfnc QluBqeKUvqQVawV902XBExfJth PbM8HOwqVEMqLT89TN55wVRd t3I2sRP9Y0PbYHDtbetgfnqqoJ S5ONQgOMHuxE42qAHoHWqkHc9p k8N3i808WLHpKZHwtE81Yq9b kInmSGFceWYMfF1tsnyyc5qseu auTzTdZQBbJUv9DJb8NKTjcBow FfGzWUN8TsW2OBY1nUWheJ9c hQwiwnvjjQ0sUtt+TUFMRTwvdG Q+MOVpJGN3iZsbHYliIZEviJ7j EQNiB5b6FjDuFjI1IUbnV2Iy MALiipumFi43aJ5dHmHzHiR2MW onF9DxndO7RESztDYnDUsoDHO4 W84aq3X7KPNgQVFdANA7bVJ7 wD0upDhrtomhjUEclQkvnnEfiD syVTgsGNkjF132VWXrnRikEh2M VQ09WN12S9MtPwfuuSOtfCX+ PHRhYmxlIHdpZHRoPScxMDAlJy MqzTlsOM1lTe8cFYZbTYBhlBzl bZQoRvPxl0gkQTScTYiaJE0w nBodM4JnsRB0FWXyj3w7Rx46D6 6oP2MduXR+ZUJzkPB5tNK3iR5h NnDfLcE0QHvxM793CqXesYAw Ziwqs9umk3dteBo8WeSwDWYyjw OavUveRYK0c7QvPj87Y14rQWkg SWNgADPoBJViZYOhuAhskj5b eB7yTy8+CTPwbLC5qIK8wY5uXr NaFsZ2ISmgT169YxQdrJMxKicp J12eD1KtzEF+FEOxCsu8WSSj hCrgTF1cfRRyPHetWp8oNVX6Yz HmQkUhYKrwN4DeBQPvyalxdwxc cDE6FUFgKRHuzH04Xt8uuShw Ng4gSZPwSFO3INWucYRbH8PgqR 3lUqWtCDLgVCFdC1GdgSKtZSvz V164OMuyYoQ2ZEKctmGaI7Ta BTDwqSxaTqX3a7Y8Za1MsXvqkH JjTM0aVyBeGHa1R1JeYri3UCLe lWubUM8laFPfYBueSl2hhWvb jWjmKU0oQUXpsxbgj468EkXfa3 suGGByjYFjMIcqLEI1T36yn5U0 WORxBSAnIYW0vTJ9qM9byDrx bjogbGVmdDsgdmVydGljYWwtYW nqV928GKVlpWtaOkICRyi7D2Cx Jow7PCZvfKujJH7ejNYqQCuh Ki3dxScceVpfFW7kJESsyotjm6 62FiUpj4pyLIHzrUSvSJqaIVE5 H30ae2W1DMNjHJHsBTJ5sJN4 kR9olLoitjjvkSZygGihgfQefI cjJFlyPTqxK576JCJuxWbfFk8E Teo5G9SwKga7ZNIrvFrsNH3n eNNkQGorFh4ieVhpbBwnTC2bTF Pfaixrs628AyBgb7odTZAlaOAu DNudHHD0G09vy4U7AZMdKJQe OHY9rIW2nB4juPhmyfchaGGopQ zffcDmmHmeEMofNSgoO017UZYv cDsnPlBheWVyOjwvdGQ+PC90 pe97H6SfZhhmNvd8YDGvIOS5rE V0uO6mWEKfTHboc4U8oRL4N2We vhNago6ta4mxCBFcHEtbP25w bGF (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 [facility] Coding Summaryon 10-25-2023 Coding Summary HTMLBase 64 XfwnwenxUQs0tBv+PGhlYWQ+PE 4NCMKrB08edVJlzH8uW7NSWLqN AxdfGJKALOhSLwMpobRdJX5fpQ NjZXJu IC8+AV0bDXPxAwwbfBWsh6F6qL C1O00dla5vHPrqoYW1ESVpFyPd xvuum0kydBd8ZWlpDmkwIlUq YLVaxL62TDZ8mY29Od01jEEqeC Cnw3wbsOn1RyNlOHGoCWR5aKtk VJkco7BuUFCgC16fbOKcw6J9 ETVdiMmuwCQiLyDicID4hP4wVW frkyhhg6exnxxxPjy8vt98yJDe l1L5tGA8K3HlswG4NCLduZEx NsriaXRAeJ5ejtxsd2ywcihyKp VlAFVgXLv9JOx8QBMmfUntGmXv AU18SFM8VUWlirItX8NlJXUh iEmlOeK9n8F4Wk0FG3AKDvquQ8 VNTUFSWTwvdGQ+QJ95wd27W9Gv QqxhLiz1RLVxFXD2mON3iW8z KKPxBPsnz9J8eTE1G4IeovLfiu 7cf9fnDQAwYHneI55pbOAgi1Q0 IPUkcEI5KYEkrTqsWtGqkS75 Oyc+GSZfxVldr5NtXkivh1ivc3 ivpDj6MggfLXLileMceElbRXF7 l7IjLr6lKELmoOP8fPD5kW6u LeAeKyL1AIslL743DmSntNHyVl nlQ46iT0HkgCA+XHUcLgl6RGEh oCavQX3bN6QeJGWcwhwabBNc aWehZZ7rZRYhcpttPIHjmC8uSW JuJ0x8VkEzOpI8KPxuI4OgDRXi dnlkQy71aD7oQgIcWrZ5XWqf R9ItasB5OZKbaUIjLIyqOFC2T1 7bu8Q3WCZyUAMhRPM9iTW9gF8s bGlnbjogbGVmdDsgdmVydGlj TQdrGPkbH641BSTdpJcgKnFeRN luZyBEYXRlOiAgMDMvMTIvMjAy NDwvdGQ+UQPcMVG2kWhkFPPo nKPgEQwaNt8fiLwbnCglRS9rYO NscqhmBXPjnU8vUOPweCSuuXkr AH8dPAVeufgaf085HkArMEA9 TDYbdLYiP4GmaL2vRkSwUWXnKB RvH3HjrSGjXTfwA965GMtyDjW2 ALTlfbItU3MtPVVbvFatUxS2 j6H8Yd9Xg5ZlprbfL3NtvIRiYr AkFqbmERg4O3MwZkyvxKZ+PC90 ANVkQS14HJb6IKD7uFxdPGye XMHrU4JvvU8cTmDdHBAcNHYxHs c+PHRhYmxlIHdpZHRoPScxMDAl VsVhlWkdBN1rGc4eOOOtZTQd gKqfuLFmRdKuw9hsSSLkOVaoFD 5awYenR3PkuOX0OHVas0h2Py05 W71tU9WldEJ+VGCxiBU8eLS2 mZ5qIbOnGjG9OOfbQ991UgOomB KvUwalz3net4rpxBu6NrM2NWFl fqWfhBrpGJU5f3YaEc56O55t IHdpZHRoPSIxNSUiIHZhbGlnbj 3keC9bXk4+SGVuiEW0rCI9rL4a KnYtRyX0XYdyT969EcXngTEa Clqvm7xtt9dfgLa4VsZsLAGqsa DitOlxDZD8g0IhCc62T0UdlEme f7JzPrh1pc43dKKdy8J1cIO9 N7VaBDUvmayxnCQqrZecYN9wTL SgrxcfEDAzlJ7nDEZdT7l3LtCb XwM1LZrgB0UkalI5YKBrpISi TVYvhKQDaY8eqedck7mxxzlcJn WfPXMiKQr3OTy5TMHkoIrfMqJl AXO5KaU0BFF1dQCqyU6qnTyp vxuctM5rOsi+MEU0qBBwiGSYJB 1lOjwvdGQ+JBUqSTA1jVkkAWbx IKOrdA5cMTLsL0n1MyQjOcN5 VNwaM7SphsF0UVTxcGRqNKUvvI BKqH6zkbvbx8rlgbdoLoKrHWXm BNd5YSt9MXAyhNkxOkOnXUJ1 KdT3GYP6mDBreJ9diSlajvulfC 9wOyc+BipgwOjzVUX8FQr6D5Vr Lkf5TJZjkPixZJ5ftHUvHNee Bx1fbZhyzSbnTF4xBLEsqjvzz2 50JbAmj7ozAWExmBXvQIvgOTU4 E20in9Z4LQGlHDFpAMZ1cKN6 yK0psGneehywnKOwkVfrwnVftE kgCHdjYWfeD967BGUcuYhsMjBs FQi9S5WdFkd9TAJokCycSB7u gUYiASocLc5ccJrxjHnnFB0dSC Gttruff122WjPzp9glZXDisOBt TPpqHAN4Q83uo1W3MFJyVFVl DZX7eBN9lI7ngKzlkrohoEPzoB btjfBfeHdmTOtjPKgxA545CIQn oUnuYiEkyCh4F7GwVgn4ZATj zKlvTO3luCIxOSdfPr9lvBqnmE tqWX2eMIEnlfuou152AgOvv8cw SQYmhILxWZpyXFE7M64it2F5 PHIsTUFkCPU0aGQ2hD1cnVkvls ogbGVmdDsgdmVydGljYWwtYWxp A831GORrkYjvNuDavGnsqpDq ZXadUJj8H7UnXncrpRZ+PC90YW EfIL09jJTclLNed9ypjGn9YlDu ZOXvJRT1gYlpMJbmj7YtFMEv G15pcZOuc4P6TQMywFwedATeRu WoqOF0xB4xANedgbaop1mhccrr Yzzec5slng46nU06Y74jONav COYsCIRuDYXfTTRqoAbnrl3fbO 9wIi8+WDKlfKO9qGF3bK9aAWYy NeJ0ZDovH405OjUlzXLdVzpp p2zfn4nbcIa5UyK8KJBogmCdaG zeFDI1o2PdXm21X70dRQwtIXQq IEMjMPAlGVMwgWifew1ssF6i Ii8+FVYbjIN5mYN2fB7sAnVyJu E4OBmvY346VgFjfFNaUqdoV60u Q9BglNZ+IDWvJeu7BIRygYmw XC0rzOWuQLcuVs0nJYQ8VjLkCc SbEEhoC2GaCLEdoriwmjoysGN9 OHGoRKYxfN64Jp2nvGcwSRMz xGOHfZ3jeohhl0slfwmnNwGiCQ JxGPv5FXr6FPMquZdsNoOhSHF5 NzA6IKX9oKCkxX6cyWyrdtum tC7bF0CvGWRayiopYz13oD9kNo BfDoM0ZZiqLsi+U5LVAHNMGOPE YZ0XOrECPS07SA32xBEhz1C2 wDB0N4YtUPVzbrlkxsathCP7DX AqSKFxjR50kHWtYBzpWu7zl1B1 b096UEUfWOTjpL64Ia5khQpa QRFrfQDAoN2prvncm9wuicmqBe FsDKLjVDd3GKd8YDZqtWjdAeVi NAQ5ClK6ZXP4iHVuzX8qhVrj bueqnY2qHhq+SQPwRCApDHb4Ya wvdGQ+EMZcYVH5dXvlNGuqZIRz eV8hJBJeH3x0KkClBcU1VHmq F9PwOPCxsbzkJt82rY8iFqTtUv E7ZVsfI4JdhqK6JRAjxHPjEHka MCY2P70ya5V8ZHNnIRUuIQR0 oQM0wZ1lqArjcoxkkJVjdIinae ZfkInaYKmeTZzbD445VQFpwSmf FwO6EWxnGLXbAQ82QJ22rFWk y6G5zPF1Q7MzSFXhmburtbyrzS D7JLBnNONjoT67sIQnNBsrFl6g x1G1m271ETUbYPWviV99Gg1e lCbyHAVrkAWHeN3qcywfw8zapc ldDcPwAHUoTKh8RZu4WXZkkMpg BfAgETB9JkE7FKO8nIZdlP9b gSuwhsopcT6uTbu+TUFMRTwvdG Q+GDErTED5qLtmYSftMKKgyS1q XAChM2m0ThXdRhA8HOmwZ9Yw WJBexwnnGo44uQ2wTtYmKqT9QG ctB3YeguH7TVJbzKRsRVmnKYO9 Y54es3I3EWScSWTvLMK6hBL7 rX3snWnwakntuIUszOftchFvuI oxYTmoUAdfM182CKCxjPmsHh3W UO21KR65J1FeDqvlwQBmjRR+ PHRhYmxlIHdpZHRoPScxMDAlJy QrwQiqAU8wGh5vZMSdEKXphHnr uVYqIsTjj2mkBXIyHYcxGU0i uLqeL9SlbYK8YSOdc5p5Yx60Z4 2tN1GpbRL+EZEkuLO1rGJ7rV7r QeRpDiK3BIlmT586FeMzlCNn Vkvae7mpk9cowHo3HoKmXGLwlg UffBgwZTK6o1AoWg65F28cURmo PDBnEGSvNTNpTVEewXanuf0v sH7vJi0+NFFaoWD3pMZ2zV5yZk FoXwD0VDwnQ706UaCvpPVfQftq K60bV9WduQY+PQWtBim1KJZu sYecHX7hqEDpDHdwLl6fHLY5Lc PkEvYeBQfiA3JgFYOkajrtqzfb sEY8PXTuZXZenF54Nu0ixOad Te4oEIPcPGS6JLYgqZKeT4GgcK 8gFaJfHEMgMEWoK0FzyZPmDBur C978SIyaPzV9WCHzhlSoK7If HXFozLauXuL7i5R1Io9UpDwenD RaSQ4uKnGzPBm9E7ZwWod3TNPu aQqbWH9akEWcIBtbYe2nePhh lXvuQC7qMLGncbudl007GiWpo2 ouSPGxxJOjGIqmUQS6Z97sm4L4 XERnRKChDAH7yBK3hS1imXbc bjogbGVmdDsgdmVydGljYWwtYW jgG761LWTkeGjuNuAGGmn0I5Ah Xve4COOgnAyqMI9uiMPzPZkb Fv4ucUgcnGgqGL8fZCBiepixp4 85BaSro9jiBJMsyLHcPXppQGA2 W62gt2I9ADTuPUFiNCQ7xCU5 xW8kgSbnodvitFKkhMpgpwMhzJ djHDlyIEhoB469BDAxlFksJn0B Fxv1R7VvBwy0TJTowEgmJW8b mWYyMOnmBt5bpObgqTepEM2qCT Bjuypxa847CkBxu8zfPOCyfKFz KWwvFYP1T62za1V7KYTyOMMs QUH1mUN1zB8ocPinahinmNKsjW nwpiPveSscOOcjLRfmF069DJLu cDsnPlBheWVyOjwvdGQ+PC90 rs95R7QeGfnaQco2EVLzJZD3lY D2mD6bVBKrGOlqi6P6rXW4Z4Ci umPhzd2la7icQXZnQAdgJ00y bGF (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 [facility] [facility] Coding Summaryon 10-24-2023 Coding Summary HTMLBase 64 ZrzjoauzHPj9tKr+PGhlYWQ+PE 4VBQNjK90pxEArsS9eG0PCTZsH SnuuQTXDUCsCZoOfizUmUL2odJ NjZXJu IC8+UI0oIDMaZwhkhQYoc1Z1uR X8Q50tcj7nNWpvaTG5BHZxIlEj mqyar1yesEa8VXloLeufGqHs GFRtsO40CKT8gQ60Zb33qKHdsJ Eys1gwvYj7CrQcGCEgYLN7aKvn RTydw9WxDCQvZ51rrQXmm0S2 SNIajQyorANmWjPbfFX8oO5nTP jtejgfj6zdcwegMba2ig28lHHu x6E4lNQ9Z5EzyhY3NIWlaXAi DllpgHBQaS4qvmdlr7pomybjSk VkWGVuXSe6GYv4HXCjsSfyZbGz UO18ZJT5FMVgzuWcY2YbAXEv rRuiIaA9o4Q6Ew1SQ4YTBqgaZ7 VNTUFSWTwvdGQ+QZ26fn64M2Rv NyvlXnp8BLIpFAC5eRD5hE6d XAPgEQqpm2Z6dPP5F1JlczNkla 0sx6zrQDXmGUjfP39fwUVlo7T5 VZCiaKD5OEGeqXkvSlIfmQ21 Oyc+SUCodPybw2LaZcpbe8npm3 epxWe2GvmoSDRasfNzoWesBTZ8 e6TpCy7mXWRddAY4wOZ3uB4o OlEcKxQ0OLjiJ617XqMzmUQeDu beV11qH1JvbBS+JMLvSvf6ZQDf eGydLX2qX2PaVDKuaqxoqAHl uLtpMD9pXRAllovgWJNutS9zZL YtY6y5HrJrSkO0RWxoF7AnJNOg jyfjGw75kE1jJwUeZmC8ELdp A6JmuyH7OWJpyXWtUDtjGQB9Q7 2ud0W5DXCnTVDbTZN1vBT9bU0z bGlnbjogbGVmdDsgdmVydGlj ZWuhFKpqQ345AHFocYvuHvEmQO luZyBEYXRlOiAgMDMvMTEvMjAy NDwvdGQ+HYPeGXF7iLscWUAx xATlMBjkXw3fxZxztSpxCX4kKR PykaodWGLfhB5uLMQocRIvmYvx IN3eOOJkxeipi694XiJuCEK9 NCBnoACnV3GrcW6rZkWaJEQjCB EzK9UpyXBkKCrvP901FOalCwU2 MAIzzqCuA5VoBFRtuUvaNeC6 b2W9Pt7Pf3AconsgR4OwsNWlTt BpUdcpHLl1H0RiYtvotRE+PC90 JDXlUG11GBg1RUY8cSfcNBwe LITrD9WfiP0iYqYqECJnBPHsZb c+PHRhYmxlIHdpZHRoPScxMDAl DvKpfWskAD7rLr8pHNKlYGNa fObroMFvCrShd1ygMYFvZIbaEM 5mdUafU6LzlQG8CIBss5l4Qt60 Y41aZ2CdiBL+XMIqfUJ5sRZ1 vM5mRsKnVxT4ONppP187HwDwaF BtTuqmt2bjp5wxfOg7IuE7QYUp neJleNswBBI1a0JxCo90E05u IHdpZHRoPSIxNSUiIHZhbGlnbj 0thI1xAo5+BTBadUX7mCM6pC3k NmYbFiI0GUihR816CjIwbACh Xodyh8nfx9cmiTm9FdGyHQBpau EgnKkpCZU4b4GnCd05I5CrqNvi i9QzXgy9ls78cQYcr2G2kKU0 X2VhUMIebgeeaBHhqNoeWO9sTJ LlzswpJTMpvH0iPAFaZ2c5XcGr YjQ0VTlpR5IbfsY0WKJefTPe XEKcsYEFxC3rccegl3xfjsixJe LrUNExYQa0OEi9LUOttCnxCjIr NNW7EcG6MLI3fJEsuY6niRmx lxnulZ3tVqv+BFB6yKYdmRHXSS 1lOjwvdGQ+DLFmPMV2sZkvTIty VAXrsF6vYZOeJ5w5IyIyKcX0 IRidI3NdcbQ1VINktKVeNGJrjH NCeF9utzkzm6fvkoauGyJhEMIv VTa5KHg5YDZfdMuvQuBpBLT7 ZkM7SZM4qGEceP5tdNehtkmnwO 9wOyc+UemwzIqtUHW3AAh4W0Mg Eqp6CVXkyUxbFD4wbCXcWPqf Vx9chEpsnGebTY2ySACejggix6 73WjQcg7ijXZNdlOIwLOunWPA5 O72wl6S5AIBgJJQfYHY6vHC6 zY8dcAiiemiswFPfbBcottAroS vvSNnpTUpbY996KPHxlXkvHiWs JPb6W9OwXcr6SOEngFetRZ5h nEReHJrsLf6qmUwiwPnoWD0fTK Xahofsc438LtWup8lbAPKafKNs VZnxIFF4L30qy8H1XXFqMLGm ZKS7gJX2yW7htSnjdtqhyVJnkD szivWhpCfwJMcuJQilQ219KCXj eJfaKgYjlAt8T3SyVjl3ASFf yGgiHA6ikSVzCZuyGj9tePsktU tiDJ6nCDJdplbft437LzMgm6ry XLHpwAAxWRddPKB3H41xx3Y3 AFZeNTIqEUC8iIR4vG9poLrqgx ogbGVmdDsgdmVydGljYWwtYWxp V073TJLvxLuyOxLinNdbzgBw KGxdSYs0V4UuEhcjqAA+PC90YW EfXR31mCAfgHQfb8mjyYh7GdPz TGWaZHF3hYxkSSyap0SeOVNs B35fkXHgt5U7RCZzmJkbdTPlPb PjrTR7mO6uHGylbjtbk4qjjodw Yzjbt7tiyt89cF98G21jNUyk GGKhMIOhYRRlWLGvqLxcgi2jqG 9wIi8+DESscDG0fNI9vC8bXHMx IaI4PTmrK202KzWokPEyGopq r7sse4egkCe0WeG8FKNmcsPttA atCNO8a4XjWc37P37bTIrkCJTi CUXkJOCgISEyuCengf0juI4q Ii8+OEKonMA6kTL7iS0gGoZpDr N0IHolF431CmXwuAUkXzhzX53h V6MvrFM+AYYjStk8YCSptFku JT7txLWqYBuoYz2fMTB7YrKnHy LaVSiiS1XhBDZyrnwswmxieJB6 PHNfWUWxnI95Kp0ycHnoIONz fFMXpW9oalyhv4ieztgcVdBqJU XnJKu1NEu4BXBkyYsdZsJzNZH1 VtW3CJH6iUFmrM5rfXabvuav zE1lK4NuCFOmdxexTd05kO7iLk NlTiH4OPmwWoh+J8KGXRXEBINH UX2NZvNNDI40IL50rENmb3H8 mZQ1G6PzLTZrtfwtdcwicNP8ML FzQTZuuK53yMGeEQfqQr1lz5Z5 a263NPCzKKClqA33Eh6noEoa JOXasWKLwE3yasfyp5hzolglKp ZjJBDhOCs3XLy4IWKluYwuJhZf LBH9AaK5ETX7bPOvcQ6urSiz xciaoJ1nDkh+HPRpRNQmPZj5Ih wvdGQ+DEEfQTS3fRraNMcoZVFg eQ2bTEUsJ2d4QsPiQpX4COev W8WpUIHuvccgCf88uV8qReCxRx K8FGghE7IzibX9DOTcxSEnIXki SPT4R28wp5X7GSMwGBQbDVD0 dWS7tJ7mvNtguvxxqHAhqJolbg LwaNdtFRzoRCufV058ZXVkmCxv JiL1CWsmHXAjUN55AJ80mSOg y9O6oQH5X3ZwULChftccdrcbcA Y8VOEkPUMocB87mGCyMOwmDf4l g0U2y031AUPeFSPnjQ25Fb2s uEzkJIDiwFFOzH0fwvced3loyg ymJjZgKXMhKFg0CHf4JIYoiBht EpUwEHQ5NsT8CJA9zUNcfD6n uPmgvifciY1fJky+TUFMRTwvdG Q+FBWvJBF0qQtpZRyfCOWbxZ9p IKAbI2y2ExNcYrI7ZTxvF1Sl QTNkcgtgYf16mW2zTvLhVpG6HS giB6MuxfI8MZCmfDIfVNirECE3 Z25fh9I0RHRlZZNdOYS5bYD9 aR5jhEtmtyukdNJrzOcugaKmjK iuUDcfBCtnG193ETUbkHmbHyXx zZQJwFVaAXP2WJ03VV45A0Dw PjwvdGFibGU+PHRhYmxlIHdpZH GzJTfcUAWmBwEcpYspYQ3eCk4g JLSmXRWxmVzsdYUaYjAco0vx XVUpZEcpDD4oiKhiG7EjrQW1TQ Vtc9n5Ac58V23fP4PeeDH+PGNv pIS8oBV8zH5kBvZwQyJ4RYei I045HaGaxTViUsvqe3lla3gldA w6BeMjTTDlbwIbfUluTWE4r7Fy Lt71S11kGQleYCWaLOPhNDRf SCQhrXekzz8qeV4yNy8+PGNvbC N9wBV1dG4yXcKnEkU0LVxgX394 OtIgsZAfPhtcU66uW4UwmNI+ AKIgIgr1BVZkpEzuDF1icSSwCW ivTe3bXYC2EaAqRqUaQXmuS0Kd LDFfcocksvpqqDQ1YLXgXZNw jU46Mo4bvZfuBh3kPNTlSNR3JT CqpQNnM3WwmM2hDrEyILWtDEYp Z0FnuMWwGHwpS096MCdsElP3 FXTwrpIrF5GnCMSeaQaxPzU3g2 Q8Nl8SkLykhACiHD0mKsVgBFs5 U9HgYsd0RPQunAwiKJ0gkZXj UIeeBk7oaVetiGnqBP9aOPHqsh mik629VxPfm1wqHAUfmRJfEPjp NQH2J90ju4Z9HHSzHACwFGT5 kWE8lP3ynXcpkutxsMHpmDzrqc SzeVuiWBdvPLanB130GDTjwKak WqSGZtd8R4LhJtx3MTMofFjl AW1rcVNtZAepVr9opGjrzSzoWC 3sTRTkxdpbg045ZcLme3ekXQLn jWWgDVepPKP0Z55gc0Z7ZQCe XJVlSZB5bMQ4xB9ycZgsnlrskB SutEjckgHjgLvmEKyzLAsxJ353 QDFslYfnWo1LOpm0M0RePlu1 NPKbrMurUF3vjGOqOIokTa6scY dwqOytQA1gBRZjvqqgr367QsZw s0itWWJtpCBrGHhkSZT6B79l g6S9LKHcMFDmLHU1oIX5yY5mmW lnbjogbGVmdDsgdmVydGljYWwt IHcwJ409YFFbwOmcKrYvvGEa OjwvdGQ+WS31wd75Y8SkHngfXj h7JVUyLOQ9cUL8vN3eMAMnTCze i7O2uVW1T9EzxbCthd2hq5fn YXB (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 [facility] Coding Summary HTMLBase 64 FrigbkknTUi0sDh+PGhlYWQ+PE 9KGBLwL67krKJmaI1jZ7LEGBrU KshkDZWWLRlVDpJpcxPlTO0cmS NjZXJu IC8+OC7vBFExJxzkoMZca6W7sU X1Q30cpj6pKGnrpLQ6ZVNvHsUm rglxx0alaAv7ILsuTidqUfOy IWSufX67ECX3mN94Kn46jTKnsH Ogb7ppeWe7NxDjIBQoNVW6xVgm GMycn1XpFLAdQ30zmXXcl4H0 XARlrDszqZYyIsGnwTX2tD0tLC iwrqjwt3fewxpdDbz7jz62aSCu b7E3dWD4S2GyjwR1QVXijPXy JryobJYSfE9oibjgz2awialzVp ZiMWTbFWg1IYf5BUWawJgeIdAl CA61SOK5KJJxacZjP8NfECVl sOauXoD3w0Z7Pn0JE6WMCricN3 VNTUFSWTwvdGQ+OT94qs39V2Sq HvaaElm2CTEeUIG8bXG7gF8e XNGaYNtev7X9qOH6J3DwayQenr 0pd0crCBBpUTowM83okXYsn7I3 YCXbbBN6DJXnmTldFeXzlS68 Oyc+AUYoaOnmu7QmVexvc4wjy6 uebLi2TqmzKIHiapRpzWxgLCH8 d0HdLh4tKQExdCU9wAA9sA9i PfBoDfB5YExiM735EeMozUShGc gaL45aJ3IyiUD+FSUvZbk6KVUm fEomZY1zL8HrKSMsvxwniCBl iSqlTE4gTDWvsdleFRTsbE3iXX AdA4x1AaXhSlY3TJkgA6TiMEUw jyvmXv64fN2jPhHtUhT8SLwn X2QwoyU4EYJztXHbMHreJLZ6A5 7jt5T9WRMkMWYaJCI1uDU3xU2z bGlnbjogbGVmdDsgdmVydGlj BIefUErjJ435XHZjpIfkNmPsFC luZyBEYXRlOiAgMDMvMTEvMjAy NDwvdGQ+TKFgHYK7qYmcMPTm nJPbEJkqQy8dbAcylLxmQU9bDR WrfigdZCDsfY5kHMHreYZskEam LQ3lXRYfofzgw309RqXrJVU4 HJSipYZzS9NspN2gYrAxTVUpCN DuK2TuuCEqTWoxR381VJuzAdK9 KPIvooJlD0RsMABciKaqWbT6 g4E5Ym7Rx8BodahyD8WzvTEsYs OgHbctUOl5U5WsTkntmVN+PC90 AOHhRB96IBt5PDZ3dDzvYWrs MPSjC4LryO0iDcAiGOViOHWcPt c+PHRhYmxlIHdpZHRoPScxMDAl GzXkuEamGS3yOz7bSZCcOOMs zEivjWBmPvFof7dsQJOzUAkfMP 1xgYcpD2EthOX0ECPbo8p5La14 T06bN7IhkQZ+YJHngAT3cAS6 jN9jSwDaSxE6ITsdD831CfRhxZ WbPchly4ryu4rlzCr7MeG0YQXj rjMjiJpeYPQ5j0NbSc57J55b IHdpZHRoPSIxNSUiIHZhbGlnbj 8jiS8cPf2+LJPzvJU2xAH5nF5j QcBfSlF4CRmuN715CrCqyLFv Mhers0sqr0eudGa3OmLsARLyiv SveUntXLH4a1AsWx18F1SxeYdm i9OeOkt7qo51aDAjd4E9sUV3 S3PeKOTvrhrcoHPtpSgxNJ9rAZ YrjbykZKLxgJ7aYXBzN7l8QjWy UbG0GQbqJ4WgudU7BAEdkWLi VRXswXURpW2uifzct0qtvhyjNc LmAANzMHg4XZz3AOXkaWfqKfAj VWJ8UvI9PXA7gBSwyS8aeEsd alhjzX0hNih+BRL0gNAulKJTRV 1lOjwvdGQ+TMJxADQ6jUutGScz KJYrsW6kVQXcY4g0CqAdPjU1 LYkjA0SlrpB6OOFvmBHgUWKgaG MHoR6anbaeg7dkeofjXnCtROSc WHg9QDn5TDMorSpyLnBuFPR4 QmA7FJX4yQYzhZ3ruJfbmfmbhS 9wOyc+ZwjpaMdwNFV6EOx8P3Lh Sfn8VEIfgGjjSF3bfHVkQJqz Et3jxJffrJexAQ9uIVBmnlvlr9 60PvEvs4orDJCabPYzLFbgMQK8 H72by4F7HJAdZWZePBE1aPC4 cA3dnObbfxmljERdwAjtfzZppA vfQQwiBQpcR820HOAyqWafKiZq NVt7B5QyZcz7VOCjlZzxPS2l vSWzSLbqMi3cyDjrcEisYX2sZL Punocbv984XuUdo7ivINWigACe RBnnPFQ4F95jk0I3DKIzIGWw WFG7yAH9zV9ccOjuqqykwNImhS setaVptPfoSPgsSYquI080OVLd gCdyUfOivBp0Q1IaSau3AQGd wQeiRF6mcARwJTysQv9erJbatP uqCO1uLHSyjeqqh015BhIcp1mp XVUstHTqDDteHRO7G80xz8L6 MTFmADAhOZE4xIG3kT5pbNzidq ogbGVmdDsgdmVydGljYWwtYWxp T278PAPewOpiAtRplZzusqTq ZDbuAZm4L8RuGwotaBH+PC90YW VyLH15tOCsaZQpd0hbiOx3RcJg VNFlCYC1iAhuKKcen4ZrOOIb N24eiZThp3Z3SKXgnExacZMaEi FajVI4zW7eRZvsmnabz5xlewmy Daxga4sfmc26rJ42B20yMCpo EJYkUTFgAHKvTMVkvIigiw8coS 9wIi8+HHFkvOQ8bJP7rC1sIDMd UhR7GPkzE505GgNpcQVeNkfj h7mwj7lgsVw9EcU9KEMuvqKscJ zePLY8j9MjBz99J40yXTwiTECk YJLuDZOnKBMirHcozi1qpN4v Ii8+LCKktZZ2eEV9zJ1uLpRkWo L5QZmlN328HuTzzYHxAjyzS85p X5RxbNA+NBBoMkb1WBMvlNwr DB1kaUSfSIwsAu8mXHT1PjTzVf PzKSzrL4FoFJKwxzjxnvlodOD2 TVIpNZDojS53Ro6syFcwSAFy bEDTeQ3iqsfzv4oxvkflCoFnVC EiQCt6YCd2WGTuqQygXgIxHFI6 JbI8MRX4cFOqnP8tsDurnzbv tU1vJ8RyZTUiibgwMd66bD1dGi HrJgL9EKdiKhr+A1CQLLPWVLUB CU3QWjBFKZ03ZD62aVEsb3Z2 lLW8E8TdHWGqtbwlakgbxSV6BX KgRPTwkI54jJWsOWomXq6gu0Z6 p430MJJoYGDohN61Dm5mcTxy DZHkcZTUbN1asbrgo1iuxcklOv MzKAYlVDm6YOb9PCEqvGsmReKr EZK1MhO9QJP7zHFrvT5rqQva dpznrX5qHnk+PKTrRNXaUOv6Xd wvdGQ+HGDgKRJ8tEkvZHjnQQKu uR4jIIYfR6g4LiUaWuI9TUga B4DzTZHmkowcVe45jK9dPbFkFh F4FKfcV8KgouE7WDZerOZlHEkf OZR7A37ec1F4MXFdDOVcAYM8 dLI7xB4ibQjrqxpvmNFmkHajoq CqfIqjAMsdKDgfY916KPWtkHud JvZ8XAycRAVxCE79FV92eRMl m9F1mBI8B8BeBMLwbyvyomquzK N9PKRyAZNouQ83dZRqJEcnXu1g w7G3g020JNFjHSJerQ51Ne8k bFmiQWBjzKBHoZ5xtczgf0jzau niEmTtQHPvKYp5HMc8HLPzzPty HxAwRAZ3IjV7KBL7iCPprE4f eDninkckzU2oGio+TUFMRTwvdG Q+RZGbHZU3nCziRZrwUDNcrJ0a OLJjH8n5TlUuCbP1HEzhL5Tw NYAwujdwRq00aZ6hTbVoKuD4RC boX6OjnwQ1CQIlfARfBMprGPR4 D82ba4H9JDRcFQXhMDF6bBT5 wV9flOldqhpplOXvrEunolTkeF ooDRjtZTdhM549MKQylKnuJr1L AS93KM84Y7QdOwbouPEdgIY+ PHRhYmxlIHdpZHRoPScxMDAlJy CchCjbRA1kTj1tLVXsRZObgUhw oYPaQtVlt7weTTQdVHtmLU4s iYdmG0OpvML5ZMBhj9s3Eh00Z6 7zR0ZzwJM+QUMdnNP7vLZ5rX0z JlRkIrD2UJsgV783ZyEuqIDy Ckxzy8rce2txoZl5OnFtSDYwhn DeePygVZB3n4SmSr71M66eWOel XFFqMINcXFTsFJDysKcluk2b zK6eQz5+YDXdzKZ3nHS9vN0jJk VvMcP4QYtuW119FfZleNDjXkme I42oO1XovSQ+XKWmGud5NJNt sRqoYD8kpKGvSTvcNa3iLJA4Ye WnZzAqLFvzI9YbMGMqhoabrdtu jMK9IGUiSQOplA80Ca6rwJxz Lg9eEYXeJZW8DDBumEZyJ5YzrE 3vFpJsBCDvZPErC3AcvTCkXOdn L254OQwbXjU4VATduwRtR4Bt IONliCoaQoV8g5R2Ra0SdNckbQ GdJL7qBrOzILn1H6PqRke3XCLo pMqbHC6ehTWqEYqaYy8lnNeg vVuyVC0fSZPmqifnz483DqGca5 uzOTCqiXUyBXztZBE4I78nu6Z2 UNLjUJSdZPV8uHQ4iA3bjZrb bjogbGVmdDsgdmVydGljYWwtYW ifR067UBDvkMtwJjOAOpc8S5Ah Exl5CVFfyQfzTT8bxEQqCJxw If6uxGtzfQozYU5jVJLwpanzy9 44RjVpm0ijIJYqoLFxGEdbCKE7 X96cv0I6GMUsLBZlQOU3lSU1 bU5btDdgjkzdzKKuzEgtyuBbyI irTBoeHAiwT026RBBybShvBn5W Xbk6E8ZrUzp7TMSquLchAK2d tTVtGNxpDi9tkYokhAzcQK5kLX Nwytjvv771PyKns2nbBBNcxTLo ZWzfWJC1I85ye7R2OQIbKIXi MYJ0eWE3vL8kkEbeyxomrYBuoC xfvwOmnYsdVRnuEMdvI204WYTa cDsnPlBheWVyOjwvdGQ+PC90 sx69S0ZtShyyDmv4KSLeESB5bW W6qA2xEFTeYCzhl7E8eEF6R2Al dgRgpj6wl4kwBYVkLJmiG94y bGF (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 [facility] Consent Formson 10-24-2023 Consent Forms [id number] [facility] Inpatient Patient Summaryon 10-21-2023 Inpatient Patient Summary [facility] [address] [place] [address] Patient Discharge Instructions Name: ZHOU ENRRIQUE Shaila : 1965 Patient Address: [address] [place] [address] Primary Care Provider: Name: DEVI MUNOZ DO After you are discharged if you find you have any questions, please, call [phone] ext [phone] to speak to a nurse. Discharge Diagnosis: Prescription Information: If you have been given a prescription for narcotics, seek immediate medical attention if you have any difficulty breathing or any sudden status changes such as confusion and sleepiness. If you or anyone you know is experiencing suicidal thoughts, mental health, alcohol and/or drug addiction problems; contact the [facility] 07/03 Crisis Hotline -Qvjm 4HCYK ye [phone]. If you received any narcotics, sedation, or [...] business decisions or sign any legal documents [facility] would like to thank you for [...] BY MOUTH THREE TIMES DAILY. Refills: 0. hydrochlorothiazide-lisino pril (hydrochlorothiazide-lisin opril 25 mg-20 mg oral tablet) 1 tab(s) [...] BY MOUTH THREE TIMES DAILY. Refills: 0. hydrochlorothiazide-lisino pril (hydrochlorothiazide-lisin opril 25 mg-20 mg oral tablet) 1 tab(s) [...] for Disease Control and Prevention April 2014 [facility] MAGR Intraoperative Recordon 10-21-2023 MAGR Intraoperative Record MAGR Intra-Op Record Summary Primary Physician: JACINTO OLMOS MD Finalized Date/Time: 10/21/23 08:54:24 Pt. Name: ENRRIQUE MADERA/Sex: 1965 MALE Med Rec #: [id number] Physician: JACINTO OLMOS MD Financial #: [id number] Pt. Type: D Room/Bed: / Admit/Disch: 10/21/23 [...] E RT (R) CT ARRT Role Performed Garde Manager Garde Manager Processor [employer] Time In 10/21/23 08:46:00 10/21/23 08:46:00 10/21/23 08:46:00 Time Out 10/21/23 08:55:00 10/21/23 08:55:00 10/21/23 08:55:00 Procedure Medial Branch Medial Branch Medial Branch Block(Bilateral) Block(Bilateral) Block(Bilateral) Last Modified By: Kellie Green RN, Lauren L RN Wheeler, Lauren L RN 10/21/23 08:54:16 10/21/23 08:54:16 10/21/23 08:54:16 Entry 4 Entry 5 Entry 6 Case Attendee Massimo Moffett RT (R) Pilo Cahn Hunter SERVICE BAR CASHIER ARRT SERVICE BAR CASHIER Role Performed Processor [employer] Scrub Personnel Scrub Personnel Time In 10/21/23 [...] Massimo Moffett RT (R) ARRT, Pilo Chan SERVICE BAR CASHIER, Chandler Herman SERVICE BAR CASHIER, JACINTO OLMOS MD Last Modified By: Kellie Green RN 10/21/23 08:48:48 Patient Positioning MAGR Pre-Care Text: A.280 Identifies baseline musculoskeletal status Im.40 Positions the patient Im.80 Applies safety devices Entry 1 Procedure Medial Branch Body Positi (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 Normal [facility] MAGR Preoperative Recordon 0 10-21-2023 MAGR Preoperative Record MAGR Pre-Op Record Summary Primary Physician: JACINTO OLMOS MD Finalized Date/Time: 10/21/23 09:04:04 Pt. Name: ENRRIQUE MADERA/Sex: 1965 MALE Med Rec #: [id number] Physician: JACINTO OLMOS MD Financial #: [id number] Pt. Type: D Room/Bed: / Admit/Disch: 10/21/23 [...] Signed By: Melonie Martínez RN 10/21/23 09:04 [facility] Patient Handouton 10-21-2023 Patient Handout Normal [facility] XR Sacrum/Coccyx Minimum 2 V iewson [...] Jair Rae MD 10/21/23 11:53 a Technologist: [facility] Consent Formson 10-19-2023 Consent Forms [id number][facility] Cont[facility] Substances Agreem entson 10-19-2023 Controlled Substances Agreements [id number]#1.[facility] Outside Recordson 10-19-2023 Outside Records [id number]#1.[facility] Progress Note - Provideron 0 10-19-2023 Progress Note - Provider [id number]#1.[facility] Consultation/Specialist Note on 10-12-2023 Consultation/Speciali st Note [id number]#1.00OTGTIFF [Electronically Signed on: 10/12/2023 12:26 EST] DEVI MUNOZ DO [Electronically Signed on: 10/13/2023 11:57 EST] Lillie Kuhn [Verified on: 10/12/2023 12:26 EST] DEVI MUNOZ DO [Transcribed on: 10/12/2023 12:24 EST] [facility] Outside Recordson 10-12-2023 Outside Records [id number]#1.00OTGTEMILY [Electronically Signed on: 10/12/2023 12:33 EST] DEVI MUNOZ DO [Electronically Signed on: 10/13/2023 11:57 EST] Lillie Kuhn [Verified on: 10/12/2023 12:33 EST] DEVI MUNOZ DO [Transcribed on: 10/12/2023 12:22 EST] [facility] Provider Orderson 10-06-2023 Provider Orders [id number]#1.00OTGTIFF [facility] Coding Summaryon 10-05-2023 Coding Summary HTMLBase 64 YhpfjflnRGp9mMz+PGhlYWQ+PE 1HHVLqH86jlHTlxA5tX4AJJThW QwirBPLBPVoQWjFvteHwDJ0rsC NjZXJu IC8+IA7rYKFzHslfqNUbp5O1aL B7L62mtm1qXUpiqKK4LFLcYuRf ymsud8sqfGi0LFhjJhcxDaWf EFVqwR92BMK1qN13Xa60lKOwgC Bns1wnyCl3ImAfISGnOIW8eGgf ZDfxc4YgXBFhF79uzGThm9B9 FVRcvKggnZIzFzHnfVF5qA7kWK cqkruzd0qketrlElv1vt36yNXa s5B2zUU1E4VrwqS9HOZfwQCi DxaxvIFMxE6lnrkxv8tsxnhwCj DxBMUiHQx3ZVe6LCTixDvcRmVj ED28TSA5WZNheqPvC7OlMQGh yZgzWyT4x8M1Hd1BQ6RGXwlcM4 VNTUFSWTwvdGQ+VP94oy93T2Xe WhwpKkc0GNGqZVF9xTM7lR8w AYIuXGize2X9dAI9O7QlgjZrbk 9pf0ukTNFvOZwbS89hmPUgc6O3 MXKgiXR9EUXyyXjvVqHykT97 Oyc+MLMlwWwbn8ZuYqcnf7bpe3 ojzAd0YlnaXWCrwoZlaHuxKCP0 j6LmIn3wFRKpoMW3iHY3pR5d HsQuHhE6CMbsI050AkZluCSdFv yaE49pH8CvsAV+LEBlAuo2IQWx sBguFM3cP6VpVLYvjwodeNKf hZonBT1pAEIfeopfEFMuvY4uRX AdS6e1WpApRrD1BHljH7FvCSWd tmqfOm56mY8qCsWzOmH8WTnp M4PtjdK8LVThkBMsASvmXPP7F4 8gi2P9QCQtDKDqFWC8sBE3tW3t bGlnbjogbGVmdDsgdmVydGlj TBcpLGhwZ883CFRjiLgbCmIuVF luZyBEYXRlOiAgMDIvMjEvMjAy NDwvdGQ+HYZyUVV6vShiIVAc dEMvMVarCn5dmXsedUjlQO3uDQ PrgqpdTIGytC0lMUVkjDRfzFuo LG4sELYrmiood335KvNhZVZ0 PPLxeVYpA9QsuT4iMvEbDTVlCQ YlC9FnsDDiWZrtI460DQbeEtL1 HBKypeToH8IvOXGdyHflSyR5 i5M3Wb3Ny0BvnrbxA4LgyYZhEu LbZixkYXp0V1YpZriwcRQ+PC90 QDOuUY73ATw7NHO8tUexXSwv YIVgC8HytR0yFcLuGOOmSGEeRu c+PHRhYmxlIHdpZHRoPScxMDAl HaBgfBdsLM6yIe5xXVFjZQSg hBpkbBNpFuHdp5exTQJsZLfzBM 6xfUmaB2RurUC5ZDKcx0a7Kn62 M72rM7BarEM+KHPzgJT1jOL2 bD1iDfTtBeK1AXmpI105LbVxtJ BpWwmzk4ngc8lwkXk4PeI1NIUl juLpxBqvBFA4s3LeZx09X05h IHdpZHRoPSIxNSUiIHZhbGlnbj 3ktC8wPw8+LNXlkOT2lIR0xX0c BjQcRyX9RPmvN594EeQlfPSt Lozbc8bpa3hxiVk3LgWiCMRoji MzdWzpPEW8y0SkQs30I1JegDvc d1CxMiz6ab82yISbq2H6xWX9 G6HqBJQhgxjkfSWbuKtfLD0vGW NvkzrtUWJawU6xMUZwI8e4GsJi JnV3CYesV3LdydA8JMNzbXMs STXrgJGGtC6spqpiw2aeikapKa JtXVMaXCl5DUh8WIJtwMwhRiOs MMR7PeB3VPW2vENfmB3uwQup nhabjV5qZwd+HNW0eJSznETFOL 1lOjwvdGQ+PDDlXSR4mNyiWIdi MCPudT6wKRAqH4u3FqRdTbP5 SAxnK0NjjiI9RKDqrHLeFBYtyZ MEeM6lqtvxj1oiyhkmVcIrJPYy PYm5GCt9FEFwxKybCrDsZAU0 AqB7BNG0mALadX0xzFvwdmppmC 9wOyc+KxkyyAxkDXU2AKd1N0Bt Dxa3QPFcqPniWX9kqQSuKAes Xc4rdRwiiRonXN8zKBWaovvgl9 50CmKyg3ptGQMruESbCStkUMD7 K39nd0R0HNSmNMUjYSS5dNL2 uY3drPqsejspjMPghFobcrIcxV eeXLlvYJpqU911IKKnkCscJrEs VIy3S5PsSek0HPPaxWhlCX7d pEIfARonXt1coDkdlEpeXU9uTO Wwpqpwh440YpVjs0dqOBIbxIAx BXqvFWR3B50az5M6XIZoYEMp EXC3hCR8sQ6rnDlzaarsvFTnfU zfdaQcbVbgWNjcCWywE365SJKj dDgiOwWtqVr2K4EdBah4BAKc nLxzHZ0ndTGkNEpaVt5okEzwuG cuTO1yREIriikbe209GbGnn1cx RNMthSWyCMoqHLL0R20mc0P4 UCPbURTiOCJ0uOD1zB4wqZnxjx ogbGVmdDsgdmVydGljYWwtYWxp H192WOLmwMljEfSuoPxnobEl YTstHCp4R3InXkedqSL+PC90YW JbMK36rIFpsZEgs6ymaBd8YyXl WXYqDVJ2yNybHPvnx1DtOCUk O46zdFHvl0E7HOSdmTsaoRWbYe ErwVI6yZ7tZGyozdjpm5qwxltk Kzlwt2ewsn09jL27S12gWMyr CTPkWEPuXHJqKDCsbIbhoq5rhB 9wIi8+HYVdiPC5nLZ1rO2hXCUo BvZ2EQxaQ912StGifOMePnbh h8icp9ajoSr5KgF6TXAhhzXtnU lbVFN1f7ZsQy48B76cNUkgMUXs NJFoPAHuKNCobQuinx6hxB3j Ii8+STLuyHY2lLO4nQ4qIqVoFw A5ZJnbT376LlVqnFMuSgoaW05h N8MduIF+JOAtXvf3NBZcgEby PV1ytYBcSRcxBz5aBAD3EuMnJn EzZJquM0ClZVUzrpoegxbooLW0 PXWdGKIbwM78Ys5eyBjaXVXk hTILiW5ususyx0iltkriVkAjJH EuSCr0FPd6BOEugXcjIiBxJLP8 MgG2PRB9pBFznS3qkNvlvdmy qO8uQ3RdJCTmdggyWg60xH7oWr RfQiU1QRiaBjy+S3TDVJZWDUJG HX3URqUVLJ16VT48qVAco1C2 cJJ9D9DqKTPrgdwnjbpfpEM2XB WcNERkvC37kPLzBMdmEf2ta3O6 i584JTJcOMUxqI35Iy8cpZnp JRKinEWTcI3svwnwc4dehtaqAp PhTAZzYMd3RGo5KYMgaIggCzVm VKH3UsS6SUL8zGUimL3xrOgs hufesS9oRej+WVRnXBMgTMz5Lt wvdGQ+RCAdYCA4xQrdZXlrEZPy aQ6sWHKpM7f6KzNlUcR2ZLro Y5YlCXRcgaeiCa04nZ7zAcLxRa P3NEkxJ7OocaA9QLOlpKAnWFml NSZ2O59io5R9CYWwVXMfTXW5 aRT3yC3aaXukueuluUIxlLanbq UuoJceGFevCKaoM247XOSndPff QbP2UNznVPTmKL97AJ68nZOx m8U9zQD9X8ZdBOXlajjatlredW O2ZWFqJEQetA55bVMxTJalVr0q b0G5p103YBKgGCHiiU43Kw8g mFqcHFWgwKPMwA3wfaohd0dvuy weRlWlPKMqUXc5EDr2VOKpmKyj LjLeNLL6AoT3JAA5yLSswP4y aLmzutxtdX0cDpj+TUFMRTwvdG Q+WJRhNKF1aUxpXJxeXFCclP8e ZKXnL0s8NzNsDiE7ETkoY6Zs UMIctdsuEz65mL2yBeQkLaZ7QP cnJ9CsaoZ8DSDtbRFnNKjdUNT2 I89fa7N4FMZgTGAwVSS4pFD6 oX3mpMnlvgvkgNKzcIiqonXzoF nvKCasKUmgP063LJFleXsxXgZl J9ZboqgjEzRDxVKzKBZfJP22 ID60DP23N1IxHjljqNErzKO+PH RhYmxlIHdpZHRoPScxMDAlJyBz oLcaWT8hNj0eFFEeVBOhaDln uLEzTlUto3jsRNLeAKitMR1flL voM5FzeCK2NRViw1n2Ut11T29d F0DizYS+ESBykCN9rYD8tW4p YrBcRiV1CPblZ413KyVcfGQkIq vjt5hpa2siuYn6CqSqYSBjujUy gNkdCGO7y3LlNd90E20iILkc WIEgQNHtUOVmULCygXlviy8luA 9wIi8+PVZyvXY0aHK6yH6aMxNv VbF9GOzeN593ZqBglQXhXepq A92rL3AgmMY+RJMaXlx9PNQbnE ojSN3oxMEoKOehHb5yOWD2LnNn KcQuATodF5NuHVIlcbzrhqjd uGA8BAViHWLlaM29Xf2xxCbrGc 5fTDBvNTB5TWPsvNTaF2OpxD3h BvVrLSMiIIDhJ6UcqSByHHmw F687KGyvDqX7KHZuaqMtN2NuWZ OefTaxUjB6k0A2Dr6MqRzdtEHy MO7uEeCmNSg7Q8VkMmy1GXRv rUaiOF4ryAJhLGftJm4ekOyurM nsLE3gNBZwzqtla066JuFqr1bf OONipFBoRFrwDQV3M11nc8I8 CKRqCZGeCCZ7eLF8bJ5bqBohci ogbGVmdDsgdmVydGljYWwtYWxp N815SECeeOzyZyFVPbw7Y0Ia Zak2ENRqmLbdBT3caRKrWYreUh 7pyPetfXzlYB2bZTIaqgqnm783 GaPme4sqYNOggXPsPDzuUSE4 P60uf0L0REZjSRQxDBY9yKU3lB 1hbGlnbjogbGVmdDsgdmVydGlj ISceDHtyN368YFQtfPqfKl2V Jxx2L7WfSjb4DMXntNfyUU7yrP DeSDsjYx1nxTgnkHkqZF0nKCGd hicgd508GfMzk2bpZHKwzBOw QBhgBZP7E71ds3L4BGBdIKYwMM V8uHN3yT6rsJhlbowzpDYwdWgm rtGasAuxUAmjZNwtN968UMYf cDsnPlBheWVyOjwvdGQ+PC90cj 78P0JbHxfvDlu6TWLaZHU4gHV6 lQ9zVHDaSZnrs4H8jYI1L1Ei cmR (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 [facility] Rad - Other Radiology Report on 09-29-2023 Rad - Other Radiology Report [id number]#1.00OTGTIFF [facility] MR LUMBAR SPINE W WO CONTon 09-27-2023 [...] left hemilaminectomy. Mild spinal canal narrowing with ildc-ip-twduotev right and moderate left neuroforaminal narrowing. L4-L5: Left paracentral disc protrusion, mild facet arthropathy and laminectomy changes without significant spinal canal narrowing. Minimal narrowing of the left subarticular recess. Meko-it-ucpmekiv right and attvixvk-vk-loqltc left neuroforaminal narrowing. L5-S1: Laminectomy changes and facet arthropathy. No spinal canal narrowing. Ewag-ja-mxkpuswh right and moderate left neuroforaminal narrowing. IMPRESSION: [...] Jr Aguilar on 09/27/2023 9:[address] [facility] Provider Orderson 09-26-2023 Provider Orders [id number]#1.00[facility] [id number]#1.00[facility] Rad - Other Radiology Report on 09-26-2023 Rad - Other Radiology Report [id number]#1.00[facility] XR SPINE LUMB BENDING ONLY 2 [...] Lopez MD on 09/24/2023 5:[address] [facility] Covid-19 PCR (CVDTB)on SARS-CoV-2 (COVID-19) RNA PRESTON+probe Ql (Unsp spec) Not detected Normal NOT DETECTED [facility] Comment on above: Result Comment: This test is not yet approved or cleared by the [place] FDA. When there are no FDA-approved or cleared tests available, and other criteria are met, FDA can make tests available under an emergency access mechanism called an Emergency Use Authorization (EUA). The EUA for this test is supported by the [place] of Health and Human Service's (HHS's) declaration [...] SARS-CoV-2. Performed By: #### C VDTB #### [facility] [address] [place] [address] Dr. Caitie Pierce Basic Metabolic Profon 01-08 (cont.) Normal [facility] Comment on above: Result Comment: Aver age GFR for 50-59 years old: 93 mL/min/1.73sq mChronic Kidney Disease: <60 mL/min/1.73sq mKidney failure: <15 mL/min/1.73sq meGFR calculated using average adult body mass. Additional eGFR calculator available at:http://www.[employer]/multiple_crcl_2012.htmPerformed at [facility] [address] [place] [address] Performed By: #### C DP, BMP ####[address] [address] Anion gap 12 mmol/L Normal 9-17 [facility] Comment on above: Performed By: #### C DP, BMP ####[facility] [place] [address] Calcium 9.4 mg/dL Normal 8.6-10.4 [facility] Comment on above: Performed By: #### C DP, BMP ####[facility] [place] [address] Chloride 102 mmol/L Normal 98-107 [facility] Comment on above: Performed By: #### C DP, BMP ####[facility] [place] [address] CO2 25 mmol/L Normal 20-31 [facility] Comment on above: Performed By: #### C DP, BMP ####[address] [address] Creatinine 0.80 mg/dL Normal 0.70-1.20 [facility] Comment on above: Performed By: #### C DP, BMP ####[address] [place] [address] eGFR (non-black) mL/min/{1.73_m2} Normal >60 [facility] Comment on above: Performed By: #### C DP, BMP ####[facility] [place] [address] Glucose mass conc 91 mg/dL Normal 70-99 [facility] [place] Comment on above: Performed By: #### C DP, BMP ####[facility] [place] [address] [place] [address] Potassium molar conc 4.2 mmol/L Normal 3.7-5.3 [facility] Comment on above: Performed By: #### C DP, BMP ####[facility] [place] [address] Sodium 139 mmol/L Normal 135-144 [facility] Comment on above: Performed By: #### C DP, BMP ####[facility] [place] [address] Urea nitrogen 10 mg/dL Normal 6-20 [facility] Comment on above: Performed By: #### C DP, BMP ####[facility] [place] [address] BUN/CRE Ratio NOT REPORTED Normal 9-20 [facility] Comment on above: Performed By: #### C DP, BMP ####[facility] [place] [address] Staging: NOT REPORTED Normal [facility] Comment on above: Performed By: #### C DP, BMP ####[address] [address] CBC with Diffon 01-08-2018 Abs. Basophil 0.10 k/uL Normal 0.0-0.2 [facility] Comment on above: Result Comment: Perf ormed at [facility] [address] [place] [address] Performed By: #### C DP, BMP ####[facility] [place] [address] Abs.Neutrophil (Seg) 4.10 k/uL Normal 1.3-9.1 [facility] Comment on above: Performed By: #### C DP, BMP ####[facility] [place] [address] Basophils/100 WBC Auto (Bld) 1 % Normal 0-2 [facility] Comment on above: Performed By: #### C DP, BMP ####[facility] [place] [address] Eosinophils 0.20 10*3/uL Normal 0.0-0.4 [facility] Comment on above: Performed By: #### C DP, BMP ####[facility] [place] [address] Eosinophils/100 leukocytes 3 % Normal 0-4 [facility] Comment on above: Performed By: #### C DP, BMP ####[facility] [place] [address] Erythrocyte distribution width Auto Ratio (RBC) 13.7 % Normal 11.5-14.9 [facility] Comment on above: Performed By: #### C DP, BMP ####[facility] [place], [place] [address]e [facility] [place] [address] Erythrocytes (RBC) 4.98 10*6/uL Normal 4.5-5.9 [facility] Comment on above: Performed By: #### C DP, BMP ####[facility] [place] [address] Hematocrit (HCT) 44.7 % Normal 41-53 [facility] Comment on above: Performed By: #### C DP, BMP ####[facility] [place] [address] Hemoglobin mass conc (Bld) 15.2 g/dL Normal 13.5-17.5 [facility] Comment on above: Performed By: #### C DP, BMP ####[facility] [place] [address] Lymphocytes 1.10 10*3/uL Normal 1.0-4.8 [facility] Comment on above: Performed By: #### C DP, BMP ####[address] [address] Lymphocytes/100 leukocytes 18 % Low 24-44 [facility] Comment on above: Performed By: #### C DP, BMP ####[address] [address] MCH 30.6 pg Normal 26-34 [facility] Comment on above: Performed By: #### C DP, BMP ####[facility] [place] [address] MCHC mass conc (RBC) 34.1 g/dL Normal 31-37 [facility] Comment on above: Performed By: #### C DP, BMP ####[facility] [place] [address] MCV 89.7 fL Normal 80-100 [facility] Comment on above: Performed By: #### C DP, BMP ####[address] [address] Monocytes 0.50 10*3/uL Normal 0.1-1.3 [facility] Comment on above: Performed By: #### C DP, BMP ####[address] [address] Monocytes/100 leukocytes 8 % High 1-7 [facility] Comment on above: Performed By: #### C DP, BMP ####[facility] [place] [address] Neutrophil (Seg) 70 % High 36-66 [facility] Comment on above: Performed By: #### C DP, BMP ####[facility] [place] [address] Platelet mean volume (PMV) 8.2 fL Normal 6.0-12.0 [facility] Comment on above: Performed By: #### C DP, BMP ####[place] [address] [place] [address] Platelets 232 10*3/uL Normal 150-450 [facility] Comment on above: Performed By: #### C DP, BMP ####[facility] [place], [place] [address] [place] [address] WBC (Leukocytes) 5.9 10*3/uL Normal 3.5-11.0 [facility] Comment on above: Performed By: #### C DP, BMP ####[facility] [place], [place] [address] [place] [address] Auto Diff Performed NOT REPORTED Normal [facility] Comment on above: Performed By: #### C DP, BMP ####[facility] [place] [address] Erythrocyte morphology NOT REPORTED Normal [facility] Comment on above: Performed By: #### C DP, BMP ####[place] [address] [place] [address] Erythrocytes (RBC) NOT REPORTED Normal [facility] Comment on above: Performed By: #### C DP, BMP ####[address] [place] [address] Granulocytes/100 WBC (Bld) NOT REPORTED Normal 0.00-0.30 [facility] Comment on above: Performed By: #### C DP, BMP ####[facility] [place] [address].[place] [address] Immature granulocytes #/vol (Bld) NOT REPORTED Normal 0 [facility] Comment on above: Performed By: #### C DP, BMP ####[address] [place] [address] Platelets NOT REPORTED Normal [facility] Comment on above: Performed By: #### C DP, BMP ####[address] [place] [address] WBC Morphology NOT REPORTED Normal [facility] Comment on above: Performed By: #### C DP, BMP ####[address] [place] [address] CT SOFT TISSUE NECK W CONTRA STon 01-08-2018 CT SOFT TISSUE NECK W CONTRAST EXAMINATION:CT OF THE NECK SOFT TISSUE WITH CONTRAST 01/08/2018TECHNIQUE:CT of the neck was performed with the administration of intravenous contrast.Multiplanar reformatted images are provided for review. Dose modulation,iterative reconstruction, and/or weight based adjustment of the mA/kV wasutilized to reduce the radiation dose to as low as reasonably achievable.COMPARISON:None .HISTORY:ORDERING SYSTEM PROVIDED HISTORY: neck swellingTECHNOLOGIST PROVIDED HISTORY:Ordering [...] by:GERTRUDE Suggsigned by:Jass Hardy MD01/08/18inal result Normal [facility] Vital Signs Date Time Vital Sign Value Performing Clinician Facility 08-29-2024 15:08-0500 Blood Pressure Location Wilmre NILL [facility] [place] 08-29-2024 15:08-0500 Diastolic blood pressure 76 mm[Hg] Wilmer NILL [facility] [place] 08-29-2024 15:08-0500 Heart rate 76 /min Wilmer NILL [facility] [place] 08-29-2024 15:08-0500 Respiratory rate 16 /min Wilmer NILL [facility] [place] 08-29-2024 15:08-0500 Systolic blood pressure 116 mm[Hg] Wilmer NILL [facility] [place] 07-06-2024 08:17-0500 Body mass index (BMI) [Ratio] 25.8 kg/m2 Alison Briceno MD Work Phone: [facility] 07-06-2024 08:17-0500 Body temperature 97.81 [degF] Alison Briceno MD Work Phone: [facility] 07-06-2024 08:17-0500 Body weight 86.3 kg Alison Briceno MD Work Phone: [facility] 07-06-2024 08:17-0500 Diastolic blood pressure 79 mm[Hg] Alison Briceno MD Work Phone: [facility] 07-06-2024 08:17-0500 Heart rate 73 /min Alison Briceno MD Work Phone: [facility] 07-06-2024 08:17-0500 Systolic blood pressure 125 mm[Hg] Alison Briceno MD Work Phone: [facility] 07-03-2024 09:24-0500 Diastolic blood pressure 88 mm[Hg] Devi House DO Work Phone: [facility] 07-03-2024 09:24-0500 Heart rate 85 /min Devi House DO Work Phone: [facility] 07-03-2024 09:24-0500 SaO2% (BldA) [Mass fraction] 98 % Devi House DO Work Phone: [facility] 07-03-2024 09:24-0500 Systolic blood pressure 150 mm[Hg] Devi House DO Work Phone: [facility] 06-11-2024 09:12-0400 Body weight 86.63 kg DO Devi House Work Phone: [facility] 06-11-2024 09:12-0400 Diastolic blood pressure 90 mm[Hg] DO Devi House Work Phone: [facility] 06-11-2024 09:12-0400 Heart rate 73 /min DO Devi House Work Phone: [facility] 06-11-2024 09:12-0400 SaO2% (BldA) [Mass fraction] 98 % DO Devi House Work Phone: [facility] 06-11-2024 09:12-0400 Systolic blood pressure 148 mm[Hg] DO Devi House Work Phone: [facility] 05-15-2024 10:05-0400 Body height 185.42 cm DO Devi House Work Phone: [facility] 05-15-2024 10:05-0400 Body weight 83.91 kg DO Devi Munoz Work Phone: [facility] 05-07-2024 10:53-0400 Heart rate 86 /min Wilmer NILL [facility] 05-07-2024 10:53-0400 SaO2% (BldA) [Mass fraction] 97 % Wilmer NILL [facility] 05-07-2024 10:52-0400 Respiratory rate 16 /min Wilmer NILL [facility] 05-07-2024 10:51-0400 Blood Pressure Location Wilmer NILL [facility] 05-07-2024 10:51-0400 Body temperature 97.7 [degF] Wilmer NILL [facility] 05-07-2024 10:51-0400 Diastolic blood pressure 90 mm[Hg] Wilmer NILL [facility] 05-07-2024 10:51-0400 Mean blood pressure 115 mm[Hg] Wilmer NILL [facility] 05-07-2024 10:51-0400 Systolic blood pressure 164 mm[Hg] Wilmer NILL [facility] 05-07-2024 10:00-0400 SaO2% (BldA) [Mass fraction] 98 % Wilmer NILL [facility] 05-07-2024 09:55-0400 Heart rate 80 /min Wilmer NILL [facility] 05-07-2024 09:55-0400 SaO2% (BldA) [Mass fraction] 80 % Wilmer NILL [facility] 05-07-2024 09:54-0400 Respiratory rate 16 /min Wilmer NILL [facility] 05-07-2024 09:53-0400 Body temperature 97.34 [degF] Wilmer NILL [facility] 05-07-2024 09:53-0400 Blood Pressure Location Wilmer NILL [facility] 05-07-2024 09:53-0400 Diastolic blood pressure 84 mm[Hg] Wilmer NILL [facility] 05-07-2024 09:53-0400 Mean blood pressure 110 mm[Hg] Wilmer NILL [facility] 05-07-2024 09:53-0400 Systolic blood pressure 162 mm[Hg] Wilmer NILL [facility] 05-07-2024 09:47-0400 Body temperature 97.7 [degF] Wilmer NILL [facility] 05-07-2024 09:47-0400 Diastolic blood pressure 85 mm[Hg] Wilmer NILL [facility] 05-07-2024 09:47-0400 Heart rate 92 /min Wilmer NILL [facility] 05-07-2024 09:47-0400 Mean blood pressure 103 mm[Hg] Wilmer NILL [facility] 05-07-2024 09:47-0400 Respiratory rate 14 /min Wilmer NILL [facility] 05-07-2024 09:47-0400 Systolic blood pressure 138 mm[Hg] Wilmer NILL [facility] 05-07-2024 09:40-0400 Mean blood pressure 104 mm[Hg] Wilmer NILL [facility] 05-07-2024 09:40-0400 Respiratory rate 12 /min Wilmer NILL [facility] 05-07-2024 09:35-0400 Mean blood pressure 98 mm[Hg] Wilmer NILL [facility] 05-07-2024 09:35-0400 Respiratory rate 12 /min Wilmer NILL [facility] 05-07-2024 09:22-0400 Body temperature 98.06 [degF] Wilmer NILL [facility] 05-07-2024 09:20-0400 Respiratory rate 1 /min Wilmer NILL [facility] 05-07-2024 06:14-0400 Blood Pressure Location Wilmer NILL [facility] 05-07-2024 06:14-0400 Mean blood pressure 113 mm[Hg] Wilmer NILL [facility] 05-07-2024 06:12-0400 Body temperature 97.7 [degF] Wilmer NILL [facility] 05-07-2024 06:12-0400 Heart rate 86 /min Wilmer NILL [facility] 05-03-2024 14:34-0400 Diastolic blood pressure 90 mm[Hg] Wilmer NILL [facility] 05-03-2024 14:34-0400 Heart rate 72 /min Wilmer NILL [facility] 05-03-2024 14:34-0400 Mean blood pressure 110 mm[Hg] Wilmer NILL [facility] 05-03-2024 14:34-0400 Systolic blood pressure 150 mm[Hg] Wilmer NILL [facility] 05-03-2024 14:33-0400 Heart rate 70 /min Wilmer NILL [facility] 05-03-2024 14:33-0400 SaO2% (BldA) [Mass fraction] 96 % Wilmer NILL [facility] 05-03-2024 14:33-0400 Diastolic blood pressure 86 mm[Hg] Wilmer NILL [facility] 05-03-2024 14:33-0400 Mean blood pressure 109 mm[Hg] Wilmer NILL [facility] 05-03-2024 14:33-0400 Systolic blood pressure 153 mm[Hg] Wilmer NILL [facility] 04-27-2024 10:25-0400 Blood Pressure Location Wilmer NILL [facility] [place] 04-27-2024 10:25-0400 Diastolic blood pressure 89 mm[Hg] Wilmer NILL [facility] 04-27-2024 10:25-0400 Heart rate 83 /min Wilmer NILL [facility] 04-27-2024 10:25-0400 Respiratory rate 16 /min Wilmer NILL [facility] 04-27-2024 10:25-0400 Systolic blood pressure 148 mm[Hg] Wilmer NILL [facility] 04-25-2024 13:00-0400 Body height 182.9 cm Violeta Black MD Work Phone: [facility] 04-25-2024 13:00-0400 Body mass index (BMI) [Ratio] 25.12 kg/m2 Violeta Black MD Work Phone: [facility] 04-25-2024 13:00-0400 Body weight 84 kg Violeta Black MD Work Phone: [facility] 04-25-2024 13:00-0400 Diastolic blood pressure 77 mm[Hg] Violeta Black MD Work Phone: [facility] 04-25-2024 13:00-0400 Heart rate 91 /min Violeta Black MD Work Phone: [facility] 04-25-2024 13:00-0400 Systolic blood pressure 143 mm[Hg] Violeta Black MD Work Phone: [facility] 04-11-2024 12:55-0400 Body height 182.9 cm Alison Briceno MD Work Phone: [facility] 04-11-2024 12:55-0400 Body mass index (BMI) [Ratio] 25.12 kg/m2 Alison Briceno MD Work Phone: [facility] 04-11-2024 12:55-0400 Body weight 84 kg Alison Briceno MD Work Phone: [facility] 04-11-2024 12:55-0400 Diastolic blood pressure 96 mm[Hg] Alison Briceno MD Work Phone: [facility] 04-11-2024 12:55-0400 Heart rate 81 /min Alison Briceno MD Work Phone: [facility] 04-11-2024 12:55-0400 Systolic blood pressure 161 mm[Hg] Alison Briceno MD Work Phone: [facility] 03-26-2024 10:27-0400 Body mass index (BMI) [Ratio] 25.23 kg/m2 Violeta Black MD Work Phone: [facility] 03-26-2024 10:27-0400 Body weight 84.37 kg Violeta Black MD Work Phone: [facility] Comment on above: per patient 03-16-2024 11:25-0400 Body height 182.88 cm [facility] 03-16-2024 11:25-0400 Body mass index (BMI) [Ratio] 26.2 kg/m2 [facility] 03-16-2024 11:25-0400 Body weight 87.54 kg [facility] 03-16-2024 11:25-0400 Diastolic blood pressure 81 mm[Hg] [facility] 03-16-2024 11:25-0400 Heart rate 104 /min [facility] 03-16-2024 11:25-0400 SaO2% (BldA) [Mass fraction] 97 % [facility] 03-16-2024 11:25-0400 Systolic blood pressure 136 mm[Hg] [facility] 03-01-2024 13:15-0400 Body height 182.9 cm Kian Pacenta HANDLE MACHINE OPERATOR.FIELD LOGISTICS COORDINATOR Work Phone: [facility] 03-01-2024 13:15-0400 Body mass index (BMI) [Ratio] 25.35 kg/m2 Kian Pacenta HANDLE MACHINE OPERATOR.FIELD LOGISTICS COORDINATOR Work Phone: [facility] 03-01-2024 13:15-0400 Body weight 84.8 kg Kian Pacenta HANDLE MACHINE OPERATOR.FIELD LOGISTICS COORDINATOR Work Phone: [facility] 03-01-2024 13:15-0400 Diastolic blood pressure 71 mm[Hg] Kian Pacenta HANDLE MACHINE OPERATOR.FIELD LOGISTICS COORDINATOR Work Phone: [facility] 03-01-2024 13:15-0400 Heart rate 89 /min Kian Pacenta HANDLE MACHINE OPERATOR.FIELD LOGISTICS COORDINATOR Work Phone: [facility] 03-01-2024 13:15-0400 Respiratory rate 18 /min Kian Pacenta HANDLE MACHINE OPERATOR.FIELD LOGISTICS COORDINATOR Work Phone: [facility] 03-01-2024 13:15-0400 Systolic blood pressure 132 mm[Hg] Kian Pacenta HANDLE MACHINE OPERATOR.FIELD LOGISTICS COORDINATOR Work Phone: [facility] 10-04-2023 12:41-0500 Body height 182.9 cm Daniel Childress MD Work Phone: [employer] 10-04-2023 12:41-0500 Body mass index (BMI) [Ratio] 27.12 kg/m2 Daniel Childress MD Work Phone: [facility] 10-04-2023 12:41-0500 Body weight 90.72 kg Daniel Childress MD Work Phone: [facility] 10-04-2023 12:41-0500 Diastolic blood pressure 92 mm[Hg] Daniel Childress MD Work Phone: [facility] 10-04-2023 12:41-0500 Heart rate 87 /min Daniel Childress MD Work Phone: [facility] 10-04-2023 12:41-0500 Systolic blood pressure 148 mm[Hg] Daniel Childress MD Work Phone: [facility] 09-06-2023 14:48-0500 Body height 182.9 cm 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 Work Phone: [facility] 09-06-2023 14:48-0500 Body mass index (BMI) [Ratio] 27.8 kg/m2 Wendyjesus Padron 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 Work Phone: [facility] 09-06-2023 14:48-0500 Body weight 92.99 kg 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 Work Phone: [facility] 09-06-2023 14:48-0500 Diastolic blood pressure 95 mm[Hg] 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 Work Phone: [facility] 09-06-2023 14:48-0500 Heart rate 76 /min 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 Work Phone: [facility] 09-06-2023 14:48-0500 Systolic blood pressure 140 mm[Hg] 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 Work Phone: [facility] 02-23-2023 15:30-0400 Body height 185.42 cm Melissa Galan Other [email or web address] Other 02-23-2023 15:30-0400 Body mass index (BMI) [Ratio] 26.91 kg/m2 Melissa Galan Other [email or web address] Other 02-23-2023 15:30-0400 Body weight 92.53 kg Melissa Adama Other [email or web address] Other 02-23-2023 15:30-0400 Diastolic blood pressure 75 mm[Hg] Melissa Adama Other [email or web address] Other 02-23-2023 15:30-0400 SaO2% (BldA) [Mass fraction] 98 % Melissa Adama Other [email or web address] Other 02-23-2023 15:30-0400 Systolic blood pressure 130 mm[Hg] Melissa Adama Other [email or web address] Other 09-08-2022 15:00-0500 Body height 185.42 cm Carole Roperdano Other [email or web address] Other 09-08-2022 15:00-0500 Body mass index (BMI) [Ratio] 27.37 kg/m2 Julianer Mikey Other [email or web address] Other 09-08-2022 15:00-0500 Body temperature 97.3 [degF] Julianer Mikey Other [email or web address] Other 09-08-2022 15:00-0500 Body weight 94.12 kg Christopher Mikey Other [email or web address] Other 09-08-2022 15:00-0500 Diastolic blood pressure 80 mm[Hg] Julianer Mikey Other [email or web address] Other 09-08-2022 15:00-0500 SaO2% (BldA) [Mass fraction] 97 % Carole Boschno Other [email or web address] Other 09-08-2022 15:00-0500 Systolic blood pressure 126 mm[Hg] Carole Boschno Other [email or web address] Other Encounters Encounter Date Encounter Type Care Provider Facility Start: 10-01-2024 ambulatory PURNIMA Gilliland TYREL Crow ty:[facility] Start: 09-06-2024 End: 09-06-2024 Orders Only Taco Bradshaw MD Work Phone: [facility] Comment on above: Lumbar radiculopathy (Primary Dx) Start: 08-30-2024 End: 08-30-2024 Admission to same day surgery center Wilmer Ashley MD Work Phone: [facility] Comment on above: Surgery Start: 08-30-2024 End: 08-30-2024 ambulatory Wilmer Ashley MD Work Phone: [facility] Start: 08-29-2024 End: 08-29-2024 ambulatory Hany Olivares Facility: [facility] Start: 08-29-2024 End: 08-29-2024 Patient encounter procedure Wilmer RUBIN [facility] Start: 08-28-2024 End: 08-30-2024 Telephone encounter Wilmer Ashley MD Work Phone: Neurology Start: 08-27-2024 ambulatory Wilmer RUBIN Facility:[facility] Start: 08-24-2024 End: 08-24-2024 Admission to same day surgery center Wilmer Ashley MD Work Phone: [facility] Comment on above: Status post lumbar s pine surgery for decompression of spinal cord (Primary Dx) Start: 08-24-2024 End: 08-24-2024 ambulatory HANY OLIVARES Facility:[facility] Start: 08-24-2024 End: 08-24-2024 Telemedicine consultation with patient Wilmer Ashley MD Work Phone: [facility] Start: 07-06-2024 End: 07-06-2024 ambulatory ALISON BRICENO Facility:[facility] Start: 07-06-2024 End: 07-06-2024 Patient encounter procedure Alison Briceno MD Work Phone: [facility] Comment on above: Age related osteopor osis, unspecified pathological fracture presence (Primary Dx) Start: 07-03-2024 End: 07-03-2024 ambulatory Devi House DO Work Phone: [facility] Work Phone: Start: 07-03-2024 End: 07-03-2024 Patient encounter procedure Devi House DO Work Phone: [facility] Work Phone: Start: 06-26-2024 End: 06-26-2024 ambulatory Devi House DO Work Phone: [facility] Work Phone: Start: 06-26-2024 End: 06-26-2024 Patient encounter procedure Devi Munoz DO Work Phone: [facility] Work Phone: Start: 06-26-2024 Non-patient / Non-visit Timoteo s House DO Work Phone: [facility] Work Phone: Start: 06-20-2024 Non-patient / Non-visit Timoteo s House DO Work Phone: [facility] Work Phone: Start: 06-15-2024 End: 06-15-2024 Admission to same day surgery center Kian Mcdermott APRN.CNP Work Phone: [facility] Comment on above: Other osteoporosis w ith current pathological fracture, initial encounter (Primary Dx); Lumbar radiculopathy; Status post lumbar spine surgery for decompression of spinal cord Start: 06-15-2024 End: 06-15-2024 ambulatory HANY OLIVARES Facility:[facility] Start: 06-15-2024 End: 06-15-2024 Telemedicine consultation with patient Kian Mcdermott APRN.MIRANDA Work Phone: [facility] Start: 06-12-2024 End: 06-12-2024 ambulatory Wilmer RUBIN Facility:[facility] Start: 06-12-2024 End: 06-12-2024 [facility] Start: 06-11-2024 End: 06-11-2024 ambulatory DO Devi Munoz Work Phone: [facility] Work Phone: Start: 06-11-2024 End: 06-11-2024 Patient encounter procedure DO Devi Munoz Work Phone: [facility] Work Phone: Start: 06-06-2024 End: 06-06-2024 ambulatory HANY OLIVARES Facility:[facility] Start: 06-01-2024 End: 06-01-2024 Telephone encounter No Pcp ZACHARY [facility] Start: 05-29-2024 End: 05-29-2024 ambulatory Wilmer RUBIN Facility:[facility] Start: 05-29-2024 End: 05-29-2024 Patient encounter procedure [facility] Start: 05-17-2024 End: 05-17-2024 ambulatory UNKNOWN PROVIDER Facility:[facility] Start: 05-17-2024 End: 05-17-2024 Subsequent hospital visit by physician Ashley [facility] Radiology Comment on above: Back pain, unspecifi ed back location, unspecified back pain laterality, unspecified chronicity Start: 05-16-2024 End: 05-16-2024 ambulatory Wilmer R MARLINEL Facility:[facility] Start: 05-16-2024 End: 05-16-2024 Patient encounter procedure Wilmer R NILL [facility] Start: 05-15-2024 End: 05-16-2024 Telephone encounter Alison Briceno MD Work Phone: Neurology Comment on above: Forms/letter Start: 05-15-2024 End: 05-15-2024 Patient encounter procedure DO Devi Munoz Work Phone: [facility] [place] Work Phone: Start: 05-15-2024 End: 05-15-2024 ambulatory DO Devi Munoz Work Phone: [facility] Work Phone: Start: 05-11-2024 End: 05-11-2024 Telephone encounter Alison Briceno MD Work Phone: [facility] Comment on above: Insurance Authorizat ion Start: 05-08-2024 ambulatory Wilmer R NILL Facility : [facility] Start: 05-07-2024 End: 05-07-2024 Admission to same day surgery center Wilmer Merlos NILL [facility] Start: 05-07-2024 End: 05-08-2024 ambulatory Kian Pacenta HANDLE MACHINE OPERATOR.FIELD LOGISTICS COORDINATOR Work Phone: [facility] Comment on above: Spinal injection/ pa in relief Start: 05-03-2024 End: 05-04-2024 Admission to same day surgery center Kian Pacenta HANDLE MACHINE OPERATOR.FIELD LOGISTICS COORDINATOR Work Phone: [facility] [place] Comment on above: Surgery Start: 05-03-2024 End: 05-04-2024 ambulatory Kian Pacenta HANDLE MACHINE OPERATOR.FIELD LOGISTICS COORDINATOR Work Phone: [facility] [place] Start: 05-03-2024 End: 05-03-2024 Patient encounter procedure Wilmer R NILL [facility] Start: 05-02-2024 End: 05-03-2024 Telephone encounter Alison Briceno MD Work Phone: Neurology Comment on above: Specialty Pharmacy Start: 05-02-2024 End: 05-02-2024 Telemedicine consultation with patient Alison Briceno MD Work Phone: [facility] [place] Start: 05-02-2024 End: 05-02-2024 ambulatory Alison Briceno MD Work Phone: [facility] [place] Comment on above: Other osteoporosis w ith current pathological fracture, initial encounter (Primary Dx) Start: 04-30-2024 End: 05-02-2024 Telephone encounter Alison Briceno MD Work Phone: Neurology Comment on above: results Start: 04-30-2024 ambulatory [facility] Facility: [facility] Start: 04-30-2024 End: 04-30-2024 Subsequent hospital visit by physician [facility] [place] [facility] Comment on above: Compression fracture of body of thoracic vertebra (HCC) [S22.000A] Start: 04-27-2024 End: 04-27-2024 ambulatory Wilmer RUBIN Facility:[facility] Start: 04-27-2024 End: 04-27-2024 Patient encounter procedure Wilmer RUBIN [facility] [place] Start: 04-26-2024 End: 05-02-2024 Telephone encounter Alison Briceno MD Work Phone: Neurology Comment on above: F/U on [facility] Results Start: 04-26-2024 End: 04-26-2024 ambulatory DO DEVI P HOUSE Facility:[facility] Start: 04-25-2024 End: 04-25-2024 ambulatory BILAL BUTT Facility:[facility] Start: 04-25-2024 End: 04-25-2024 Office outpatient visit 15 minutes Violeta Black MD Work Phone: [facility] [place] Comment on above: Other osteoporosis w ith current pathological fracture, initial encounter (Primary Dx); Lumbar radiculopathy Start: 04-23-2024 End: 04-23-2024 ambulatory HANY OLIVARES Facility:[facility] Start: 04-20-2024 ambulatory Wilmer CARYN Facility:[facility] Start: 04-19-2024 End: 04-19-2024 Bamboo flowsheet Julianrachel Emiliana DO Work Phone: [facility] Start: 04-19-2024 End: 04-19-2024 Bamboo flowsheet Carole Hopson DO Work Phone: [facility] Start: 04-19-2024 End: 04-19-2024 ambulatory JULIANRACHEL EMILIANA Not Available Start: 04-19-2024 End: 04-19-2024 Patient encounter procedure Carole Hopson DO Work Phone: [facility] Comment on above: Lumbosacral radiculo ely (Primary Dx) Start: 04-18-2024 End: 04-18-2024 ambulatory HANY OLIVARES Facility:[facility] Start: 04-13-2024 End: 04-17-2024 ambulatory Kian Mcdermott APRN.FIELD LOGISTICS COORDINATOR Work Phone: [facility] Comment on above: Activity level/ phys ical limitations and restrictions Start: 04-11-2024 End: 04-11-2024 ambulatory ALISON BRICENO Facility:[facility] Start: 04-11-2024 End: 04-11-2024 Patient encounter procedure Alison Briceno MD Work Phone: [facility] [place] Comment on above: Compression fracture of body of thoracic vertebra (HCC) (Primary Dx); Other fracture of unspecified thoracic vertebra, initial encounter for closed fracture (HCC); Compression fracture of C7 vertebra, sequela Start: 03-30-2024 End: 03-30-2024 ambulatory DEVI MUNOZ Facility:[facility] Start: 03-30-2024 ambulatory DO DEVI olmedoy:[facility] Start: 03-30-2024 End: 03-30-2024 ambulatory DEVI MUNOZ Facility:[facility] Start: 03-30-2024 End: 03-30-2024 ambulatory Jacinto Olmos MD Facility:[facility] Start: 03-28-2024 ambulatory Kian Pacenta HANDLE MACHINE OPERATOR.FIELD LOGISTICS COORDINATOR Work Phone: [facility] [place] Comment on above: Recent visit with geovanni yoder Start: 03-27-2024 ambulatory Taco Foster Work Phone: [facility] Start: 03-26-2024 End: 03-26-2024 Office outpatient new 45 minutes Violeta Black MD Work Phone: [facility] [place] Comment on above: Other osteoporosis w ith current pathological fracture, initial encounter (Primary Dx); Lumbar radiculopathy; Status post lumbar spine surgery for decompression of spinal cord Start: 03-26-2024 End: 03-26-2024 Subsequent hospital visit by physician [facility] Comment on above: S/P lumbar laminecto my [Z98.890] Start: 03-26-2024 End: 03-26-2024 ambulatory HANY OLIVARES Facility:[facility] Start: 03-19-2024 End: 03-23-2024 Evaluation and management of inpatient JACKIE KEITA Facility:[facility] Start: 03-16-2024 End: 03-16-2024 ambulatory DEVI Pereyra [facility] Work Phone: Start: 03-16-2024 End: 03-16-2024 Patient encounter procedure [facility] Phys[facility] Work Phone: Start: 03-16-2024 End: 03-16-2024 ambulatory JACINTO OLMOS Facility:[facility] Start: 03-16-2024 End: 03-16-2024 ambulatory Jacinto Olmos MD Facility:[facility] Start: 03-08-2024 Telephone encounter Kian Pace nta HANDLE MACHINE OPERATOR.FIELD LOGISTICS COORDINATOR Work Phone: Neurology Comment on above: Patient Question Start: 03-02-2024 End: 03-02-2024 ambulatory Kian Pacenta HANDLE MACHINE OPERATOR.FIELD LOGISTICS COORDINATOR Work Phone: [facility] Start: 03-01-2024 End: 03-01-2024 Patient encounter procedure Kian Pacenta HANDLE MACHINE OPERATOR.FIELD LOGISTICS COORDINATOR Work Phone: [facility] [place] Comment on above: Lumbar radiculopathy (Primary Dx); Status post lumbar spine surgery for decompression of spinal cord Start: 03-01-2024 End: 03-02-2024 ambulatory Jacinto Olmos MD Facility:[facility] Start: 02-24-2024 End: 02-24-2024 ambulatory DEVI P [place] Facility:[facility] Start: 02-24-2024 End: 02-24-2024 [facility] 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 Facility:[facility] Start: 02-08-2024 Chart abstracting k Pcp (Hist) Juan Miguel rology Start: 12-16-2023 End: 12-16-2023 ambulatory JACINTO OLMOS Facility:[facility] Start: 12-16-2023 End: 12-16-2023 ambulatory Jacinto Olmos MD Facility:[facility] Start: 12-01-2023 End: 12-01-2023 ambulatory DEVI [facility] Facility:[facility] Start: 12-01-2023 End: 12-01-2023 ambulatory [facility] 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 Facility:[facility] Start: 11-25-2023 End: 11-25-2023 ambulatory DEVI [facility] Facility:[facility] Start: 11-04-2023 End: 11-04-2023 ambulatory JACINTO OLMSO Facility:[facility] Start: 11-03-2023 End: 11-04-2023 ambulatory Jacinto Olmos MD Facility:[facility] Start: 10-31-2023 End: 10-31-2023 ambulatory GABRIELLE LEE Not Available Start: 10-27-2023 End: 10-27-2023 ambulatory DEVI [facility] Facility:[facility] Start: 10-27-2023 End: 10-27-2023 ambulatory [facility] HANDLE MACHINE OPERATOR-[facility] Facility:[facility] Start: 10-21-2023 End: 10-21-2023 ambulatory JACINTO OLMOS Facility:[facility] Start: 10-20-2023 End: 10-21-2023 ambulatory Jacinto Olmos MD Facility:[facility] Start: 10-17-2023 End: 10-17-2023 ambulatory DEVI [facility] Facility:[facility] Start: 10-17-2023 End: 10-17-2023 ambulatory DEVI P HOUSE Facility:[facility] Start: 10-17-2023 End: 10-17-2023 ambulatory Ortiz Gutierres 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 Facility:[facility] Start: 10-05-2023 End: 10-05-2023 ambulatory DO DEVI P HOUSE Facility:[facility] Start: 10-04-2023 End: 10-04-2023 ambulatory DANIEL CHILDRESS [facility] Start: 10-04-2023 End: 10-04-2023 Postop follow up visit related to original px Daniel Childress MD Work Phone: [facility] Comment on above: Status post lumbar l aminectomy (Primary Dx); Weakness of left lower extremity Start: 09-23-2023 End: 09-24-2023 ambulatory [facility] Start: 09-23-2023 End: 09-23-2023 ambulatory [facility] Start: 09-12-2023 End: 02-20-2024 ambulatory DEVI P TAMMY Facility:[facility] Start: 09-06-2023 ambulatory NAKIA SIMEON [facility] Start: 09-06-2023 End: 09-06-2023 Postop follow up visit related to original px 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 Work Phone: [facility] Comment on above: Status post lumbar l aminectomy (Primary Dx); Lumbar radiculopathy; Weakness of left lower extremity; Sensory deficit, left Start: 02-23-2023 End: 02-23-2023 Patient encounter procedure MD Nakia Simeon Work Phone: [facility] Work Phone: Start: 02-23-2023 End: 02-23-2023 ambulatory MD Nakia Simeon Work Phone: [facility] Work Phone: Start: 02-23-2023 Office outpatient [facility] Start: 09-08-2022 Office outpatient ne w 30 minutes Carole Jensen [facility] Start: 09-08-2022 End: 09-08-2022 ambulatory MD Nakia Simeon Work Phone: [facility] Work Phone: Start: 09-08-2022 End: 09-08-2022 Patient encounter procedure MD Nakia Simeon Work Phone: [facility] Work Phone: Start: 08-19-2021 End: 08-19-[address] [facility] Facility: Start: 09-26-2020 Patient encounter status Ladarius Padron 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 Work Phone: [employer] Work Phone: Start: 01-08-2018 End: 01-08-2018 Emergency department patient visit NAKIA SIMEON [facility] Procedures Date Procedure Procedure Detail Performing Clinician Start: 05-17-2024 Radiology Comparison study - date and time Duc Holcomb MD Work Phone: Start: 05-15-2024 MRI of lumbar spine with contrast DO [facility] Work Phone: Start: 05-15-2024 XR pre/post mri xray DO [facility] Work Phone: Start: 05-07-2024 Inguinal hernia (disorder) Wilmer RUBIN Start: 05-07-2024 Repair of right ingu inal hernia Wilmer RUBIN Start: 04-30-2024 BD DXA TRABECULAR LYNDON NE SCORE (TBS) Alison Briceno MD Work Phone: Start: 04-30-2024 Dxa bone density farhat dy 1/> sites axial kimberlee Briceno MD Work Phone: Start: 04-19-2024 End: 04-19-2024 Needle emg ea extremty w/paraspinl area complete Carole Hopson DO Work Phone: Start: 09-06-2023 Follow-up visit Follow-up JAIR PADRON Start: 07-25-2023 Adult depression scr eening assessment 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 Work Phone: Start: 01-08-2018 Ct soft tissue neck w/contrast material NAKIA SIMEON Start: 01-08-2018 Basic metabolic pane l calcium total NAKIA SIMEON Start: 01-08-2018 Blood count complete auto&auto difrntl wbc NAKIA SIMEON Start: 01-08-2018 INSERT PERIPHERAL IV DA JOSE M SIMEON CT guided kyphoplast y of fracture of lumbar spine Wilmer NILL Excision of lamina o f lumbar vertebra for decompression of spinal cord Wilmer NILL Excision of lamina o f lumbar vertebra for decompression of spinal cord Wilmer NILL Extraction of cataract Mitchell heavenly NILL History of ankle surgery Dionicio haheavenly NILL Implantation of reti nal attachment Wilmer NILL Plan of Treatment Date Care Activity Detail Author Start: 07-06-2027 Diabetes Screening Diabetes Screenin [facility] Start: 03-22-2027 Diabetes Screening [facility] Start: 08-26-2026 Screening for malign ant neoplasm of colon [facility] Start: 07-18-2026 Diabetes Screening Diabetes Screenin [facility] Start: 07-06-2025 BP Controlled (<130/80) BP Controlle d (<130/80) [facility] Start: 01-09-2025 End: 01-09-2025 Patient encounter procedure 01/09/2025 12:00 PM EDT Office Visit [facility] [address] [place] [address] Alison Briceno MD [address] [place] [address] follow up [facility] Comment on above: follow up Start: 10-31-2024 End: 10-31-2024 Patient encounter procedure 10/31/2024 9:20 AM EDT Office Visit [facility] [address] [place] [address] Gabrielle Lee, 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 [address] [place] [address] [facility] Start: 10-06-2024 Tobacco Screening Tobacco Screening [facility] Start: 10-04-2024 Adult BMI Screening Adult BMI Screen ing [facility] Start: 10-03-2024 Subsequent hospital visit by physician 10/03/[address] [facility] [address] [address] Taco Bradshaw MD [address] [address] Lumbar radiculopathy [M54.16] [facility] Comment on above: Lumbar radiculopathy [M54.16] Start: 09-19-2024 End: 09-19-2024 ambulatory 09/19/2024 10:00 AM EST [facility] [address] [place] [address] Wilmer Ashley MD [address] [place] [address] got an MRI saw more findings [facility] Comment on above: got an MRI saw more findings Start: 09-06-2024 Adult BMI Screening Adult BMI Screen ing [facility] Start: 09-06-2024 Tobacco Screening Tobacco Screening [facility] Start: 08-10-2024 End: 08-10-2024 ambulatory 08/10/2024 11:00 AM EST [employer] [facility] [address] [place] [address] Wilmer Ashley MD [address] [email or web address] [id number] got an MRI saw more findings [facility] Comment on above: got an MRI saw more findings Start: 07-25-2024 Depression Screening Depression Scre ening [facility] Start: 07-06-2024 End: 07-06-2024 Patient encounter procedure 07/06/2024 8:00 AM EST Office Visit [facility] [address] [place] [address] Alison Briceno MD [address] [place] [address] follow up [facility] Comment on above: follow up Start: 06-15-2024 End: 06-15-2024 ambulatory 06/15/2024 10:30 AM EDT [facility] [address] [place] [address] Kian Mcdermott APRN.FIELD LOGISTICS COORDINATOR [address] [facility] [address] [place] [address] per staff messageSharron A. 05/04 [facility] Comment on above: per staff message, Lalit Dodge 05/04 Start: 05-29-2024 End: 05-29-2024 Patient encounter procedure 05/29/2024 11:30 AM EDT Office Visit [facility] [address] [place] [address] Duc Holcomb MD [address] [place] [address] [facility] Start: 05-02-2024 End: 05-02-2024 ambulatory 05/02/2024 1:00 PM EDT [facility] [address] [place] [address] Alison Briceno MD [address] [place] [address] 3-4 week f/u [facility] Comment on above: 3-4 week f/u Start: 04-30-2024 End: 04-30-2024 Patient encounter procedure 04/30/2024 11:00 AM EDT Appointment Radiology [address] [place] [address] Compression fracture of body of thoracic vertebra (HCC) [S22.000A] Radiology Comment on above: Compression fracture of body of thoracic vertebra (HCC) [S22.000A] Start: 04-25-2024 End: 04-25-2024 Patient encounter procedure 04/25/2024 1:40 PM EDT Office Visit [facility] [address] [place], [place] [id number] Violeta Black MD [address] [place], [place] [id number] f/u [facility] Comment on above: f/u Start: 04-23-2024 End: 04-23-2024 Admission to same day surgery center [facility] Comment on above: INJECTION(S) STEROID TRANSFORAMINAL EPIDURAL W/ IMAGING GUIDANCE LUMBAR INJECTION(S) STEROID TRANSFORAMINAL EPIDURAL LUMBAR W/IMAGE GUIDANCE FLUORO OR CT Start: 04-23-2024 End: 04-23-2024 Njx anes&/strd w/img tfrml edrl lmbr/sac 1 lvl [facility] Start: 04-23-2024 Subsequent hospital visit by [facility] Comment on above: Other osteoporosis w ith current pathological fracture, initial encounter [M80.80XA] Start: 04-15-2024 COVID-19 Vaccine ( season) COVID-19 Vaccine ( season) [facility] Start: 04-15-2024 Covid-19 Vaccine ( season) Covid-19 Vaccine ( season) [facility] Start: 04-15-2024 Covid-19 Vaccine ( season) Covid-19 Vaccine ( season) [facility] Start: 04-15-2024 Influenza vaccination Influenza Vacc ine (#1) [facility] Start: 03-17-2024 DTaP,Tdap and Td Vaccines (2 - Td or Tdap) DTaP,Tdap and Td Vaccines (2 - Td or Tdap) [facility] Start: 09-23-2023 End: 02-09-2024 Patient encounter procedure 09/23/2023 9:00 PM EST Appointment [facility] [address] [place] [address] [facility] Start: 09-06-2023 End: 09-06-2024 XR Lumbar spine Views AP W right bending and W left bending X-ray spine lumbar flexion and extension only 2 to 3 views Imaging Routine Status post lumbar laminectomy Lumbar radiculopathy Expected: 09/06/2023, Expires: 09/06/2024 [facility] Comment on above: Expected: 09/06/2023 , Expires: 09/06/2024 Start: 08-15-2023 Behavioral Health Screening Behavioral Health Screening [facility] Start: 04-15-2023 COVID-19 Vaccine ( season) COVID-19 Vaccine ( season) [facility] Start: 04-15-2023 Influenza vaccination Influenza Vacc ine [facility] Start: 2021 Prostate specific antigen measurement Prostate Cancer Screening Discussion [facility] Start: 2016 Administration of varicella zoster vaccine Zoster (Shingles) Vaccine (1 of 2) [facility] Start: 2016 Pneumococcal Vaccine : 50+ (1 of 1 - PCV) Pneumococcal Vaccine: 50+ (1 of 1 - PCV) [facility] Start: 2016 Shingles (RZV) Vacci ne (1 of 2) Shingles (RZV) Vaccine (1 of 2) [facility] Start: 2016 Shingrix Vaccine (1 of 2) Shingrix Vaccine (1 of 2) [facility] Start: 03-18-2014 Urine microalbumin profile DTaP,Tdap,Td Vaccine (1 - Tdap) [facility] Start: 12-14-2011 Screening for malign ant neoplasm of colon [facility] Start: 2001 Lipid panel [facility] Start: 1985 Hepatitis A (HAV) Vaccine (optional start 19+ years) Hepatitis A (HAV) Vaccine (optional start 19+ years) [facility] Start: 1985 Hepatitis B vaccination Hepati tis B (HBV) Vaccine (1 of 3 - 19+ 3-dose series) [facility] Start: 1985 Hepatitis B Vaccine (1 of 3 - 19+ 3-dose series) Hepatitis B Vaccine (1 of 3 - 19+ 3-dose series) [facility] Start: 1984 Adult BMI Follow Up Plan Adult BMI F ollow Up Plan [facility] Start: 1984 Annual PCP Team [employer] prosper Disease Visit Annual PCP Team Chronic Disease Visit [facility] Start: 1984 Anxiety Screening Anxiety Screening [facility] Start: 1984 BP Controlled (<130/80) BP Controlle d (<130/80) [facility] Start: 1984 Depression Screening Depression Scre ening [facility] Start: 1984 Hepatitis C screening [facility] Start: 1984 HIV screening HIV Screening [facility] Start: 1984 [facility] Start: 1981 HIV screening HIV Test [facility] Start: 1966 Screening for malign ant neoplasm of colon [facility] End: 05-11-2025 BD DXA TRABECULAR BONE SCORE (TBS) BD DXA TRABECULAR BONE SCORE (TBS) Radiology Routine Compression fracture of body of thoracic vertebra (HCC) 1 Occurrences starting 04/11/2024 until 05/11/2025 [facility] Comment on above: 1 Occurrences starti ng 04/11/2024 until 05/11/2025 CALCIUM, 24 HR URINE CALCIUM, 24 HR URINE Lab Routine Compression fracture of body of thoracic vertebra (HCC) Ordered: 04/11/2024 [facility] Comment on above: Ordered: 04/11/2024 End: 05-11-2025 DXA Skeletal system.axial Views for bone density DXA-AXIAL [facility] Radiology Routine Compression fracture of body of thoracic vertebra (HCC) 1 Occurrences starting 04/11/2024 until 05/11/2025 [facility] Work Phone: Comment on above: 1 Occurrences starti ng 04/11/2024 until 05/11/2025 End: 10-04-2024 EMG EMG Neurology Routine Status post lumbar laminectomy Weakness of left lower extremity 1 Occurrences starting 10/04/2023 until 10/04/2024 [facility]: Comment on above: 1 Occurrences starti ng 10/04/2023 until 10/04/2024 End: 05-11-2025 MR Cervical spine WO contrast MRI CERVICAL SPINE WO IVCON Radiology Routine Compression fracture of C7 vertebra, sequela 1 Occurrences starting 04/11/2024 until 05/11/2025 [facility] Comment on above: 1 Occurrences starti ng [...] (HCC) 1 Occurrences starting 04/11/2024 until 05/11/2025 [facility] Comment on above: 1 Occurrences starti ng 04/11/2024 until 05/11/2025 Njx anes&/strd w/img tfrml edrl lmbr/sac 1 lvl INJECTION(S) STEROID TRANSFORAMINAL EPIDURAL LUMBAR W/IMAGE GUIDANCE FLUORO OR CT Lumbar radiculopathy [facility] SPINE INTERVENTION PROCEDURE [facility] Work Phone: Comment on above: Ordered: 03/26/2024 End: 04-08-2025 XR Lumbar spine Views W flexion and W extension XR LUMBAR MOTION 4V AP/LAT/ FLEX/EXT Radiology Routine S/P lumbar laminectomy Degeneration of lumbar or lumbosacral intervertebral disc 1 Occurrences starting 03/09/2024 until 04/08/2025 [facility] Work Phone: Comment on above: 1 Occurrences starti ng 03/09/2024 until 04/08/2025 XR Lumbar spine View s W flexion and W extension XR LUMBAR MOTION 4V AP/LAT/ FLEX/EXT Radiology Routine S/P lumbar laminectomy Degeneration of lumbar or lumbosacral intervertebral disc 03/26/2024 10:35 AM EDT [facility] End: 04-08-2025 XR Thoracic and lumbar spine Views for scoliosis W standing XR SCOLIOSIS PA STAND/LAT 2V Radiology Routine S/P lumbar laminectomy Degeneration of lumbar or lumbosacral intervertebral disc 1 Occurrences starting 03/09/2024 until 04/08/2025 [facility] Comment on above: 1 Occurrences starti ng 03/09/2024 until 04/08/2025 XR Thoracic and lumb ar spine Views for scoliosis W standing XR SCOLIOSIS PA STAND/LAT 2V Radiology Routine S/P lumbar laminectomy Degeneration of lumbar or lumbosacral intervertebral disc 03/26/2024 10:35 AM EDT [facility] Immunizations Immunization Date Immunization Notes Care Provider Fa cility 08-10-2021 SARS-CoV-2 (COVID-19 ) mRNA-1273 vaccine Wilmer RUBIN [facility] 06-02-2021 influenza, injectabl e, quadrivalent, preservative free Carole Hopson DO Work Phone: [facility] 06-02-2021 influenza virus vaccine, unspecified formulation 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 Work Phone: [facility] 11-20-2020 SARS-CoV-2 (COVID-19 ) mRNA-1273 vaccine Wilmer RUBIN [facility] 10-23-2020 SARS-CoV-2 (COVID-19 ) mRNA-1273 vaccine Wilmer RUBIN [facility] 03-17-2014 tetanus and diphther ia toxoids, adsorbed, preservative free, for adult use (5 Lf of tetanus toxoid and 2 Lf of diphtheria toxoid) Carole Hopson DO Work Phone: [facility] Payers Date Payer Category Payer Unknown [id number] 2024 Self-pay [id number] 2015 Private Health Insurance [id number] 2015 Private Health Insurance [id number] 1966 Unknown [id number] 2.16.84 0.1.440587.3.579.2.593 1966 Unknown [id number] 2.16.8 40.1.284778.3.579.2.6 1966 Unknown [id number] 2.16.8 40.1.941393.3.579.2.1285 1966 Unknown [id number] 2.16.8 40.1.072100.3.579.2.1285 1966 Unknown [id number] 2.16.8 40.1.118996.3.579.2.1285 1966 Unknown [id number] 2.16. 840.1.542752.3.579.2. 1966 Unknown [id number] 2.16. 840.1.027688.3.579.2. 1966 Unknown [id number] 2.16. 840.1.396112.3.579.2. 1966 Unknown [id number] 2.16. 840.1.956729.3.579.2. 1966 Unknown [id number] 2.16. 840.1.321111.3.579.2. 1966 Unknown [id number] 2.16. 840.1.945685.3.579.2. 1966 Unknown [id number] 2.16. 840.1.720476.3.579.2. 1966 Unknown [id number] 2.16. 840.1.126864.3.579.2. 1966 Unknown [id number] 2.16. 840.1.407726.3.579.2. 1966 Unknown [id number] 2.16. 840.1.522470.3.579.2. 1966 Unknown [id number] 2.16.84 0.1.821573.3.579.2.1258 1966 Unknown [id number] 2.16.84 0.1.460601.3.579.2.1258 1966 Unknown [id number] 2.16.8 40.1.299261.3.579.2. 1966 Unknown [id number] 2.16.8 40.1.872334.3.579.2. 1966 Unknown [id number] 2.16.8 40.1.493356.3.579.2. 1966 Unknown [id number] 2.16.8 40.1.439256.3.579.2. 1966 Unknown [id number] 2.16.8 40.1.666699.3.579.2 1966 Unknown [id number] 2.16.8 40.1.495825.3.579.2 1966 Unknown [id number] 2.16. 840.1.300744.3.579.2 1966 Unknown [id number] 2.16.8 40.1.142856.3.579.2 1966 Unknown [id number] 2.16.8 40.1.118181.3.579.2 1966 Unknown [id number] 2.16.8 40.1.478175.3.579.2 1966 Unknown [id number] 2.16.8 40.1.569819.3.579.2 1966 Unknown [id number] 2.16.8 40.1.655929.3.579.2 1966 Unknown [id number] 2.16.8 40.1.871103.3.579.2 1966 Unknown [id number] 2.16.8 40.1.703269.3.579.2 1966 Unknown [id number] 2.16.8 40.1.412233.3.579.2. 1966 Unknown [id number] 2.16.8 40.1.002355.3.579.2. 1966 Unknown [id number] 2.16.8 40.1.673121.3.579.2. 1966 Unknown [id number] 2.16.8 40.1.600712.3.579.2. 1966 Unknown [id number] 2.16.8 40.1.166716.3.579.2 1966 Unknown [id number] 2.16.8 40.1.444414.3.579.2 1966 Unknown [id number] 2.16.8 40.1.548102.3.579.2 1966 Unknown [id number] 2.16.8 40.1.268865.3.579.2 1966 Unknown [id number] 2.16.8 40.1.713047.3.579.2 1966 Unknown [id number] 2.16.8 40.1.329956.3.579.2 1966 Unknown [id number] 2.16.8 40.1.427090.3.579.2 1966 Unknown [id number] 2.16.8 40.1.051029.3.579.2 1966 Unknown [id number] 2.16.8 40.1.440926.3.579.2 1966 Unknown [id number] 2.16.8 40.1.474724.3.579.2 1966 Unknown [id number] 2.16.8 40.1.393591.3.579.2 1966 Unknown [id number] 2.16.8 40.1.020989.3.579.21967 Unknown [id number] 216.8 40.1.972348.3.579.2.727 1959 Private Health Insurance [id number] Unknown [id number] 2.16.8 40.1.333653.3.579.2.531 Social History Date Type Detail Facility Tobacco smoking stat [facility] Unknown if ever smoked [facility] Work Phone: Start: 1965 Sex Assigned At Male F [facility] Start: 07-25-2023 End: 03-20-2024 Sex Assigned At [facility] Start: 09-26-2020 End: 03-01-2024 Tobacco smoking status NHIS Ex-smoker [facility] Start: 08-15-1978 End: 08-15-1997 History of tobacco use Current smoker [facility] Start: 08-15-1978 End: 08-15-1997 History of tobacco use Cigarette Smoker [facility] Start: 09-26-2020 End: 03-20-2024 Cigarettes smoked current (pack per day) - Reported 1 [facility] Start: 09-26-2020 End: 03-01-2024 Tobacco use and exposure Former smokeless tobacco user [facility] End: 08-15-2016 History of tobacco use User of smokeless tobacco [facility] Start: 09-06-2023 End: 07-06-2024 Alcohol intake Ex-drinker (finding) [facility] How often to you hav e a drink containing alcohol? Never [facility] How many standard drinks containing alcohol do you have on a typical day? Patient does not drink [facility] Start: 09-26-2020 Alcohol Comment states alcohol ic quit 1990 [facility] Start: 1965 Sex Assigned At Not on file P [facility] Tobacco smoking stat [facility] Tobacco smoking consumption unknown [facility] History of tobacco use Snuff User [facility] Start: 06-26-2024 End: 07-03-2024 Sex Male (finding) [facility] Start: 01-26-2023 Tobacco use and exposure Smokeless tobacco non-user [facility] Start: 10-31-2023 Alcoholic beverage intake Lifetime non-drinker (finding) [facility] Medical Equipment Procedure Code Equipment Code Equipment Origin al Text Equipment Identifier Dates Patch Dura 1x1in Drmtrx-[place] + Clgn Rgnrt Membr Strl [facility] [id number] - [id number] Start: 07-25-2023 INGUINAL HERNIA REPAIR ADULT Wilmer RUBIN MD 05/07/24 Unknown Other [id number] FDA Start: 05-07-2024 Functional Status Date Assessment Result Facility 08-29-2024 Functional Status N/A [facility] [place] 06-12-2024 Functional Status N/A [facility] 05-03-2024 Functional Status No [facility] 04-27-2024 Functional Status N/A [facility] [place] Clinical Notes 09-08-2022 to 08-30-2024 Telephone Encounter - Claritza Luna RN - 08/30/2024 3:12 PM ESTTelephone Encounter - Claritza Luna RN - 08/30/2024 3:12 PM ESTTelephone Encounter - Farideh Parada - 08/28/2024 11:51 AM EST Note Date & Type Note Facility 08-30-2024 Telephone encounter Note Neuro SPINE CARE COORDINATION QUICK NOTE This has been addressed in another encounter. Claritza Luna RN [facility] 08-30-2024 Miscellaneous Notes Neuro SPINE CARE COORDINATION QUICK NOTE This has been addressed in another encounter. Claritza Luna RN [facility] Call received for Wilmer Ashley MD regarding Enrrique Madera. Caller: self Patient Identified by Name and : Enrrique Madera 1965 Reason for Call: General - Pt is requesting his surgery with Dr. Ashley. He said someone is suppose to of called to start the process. Please call pt to update . Is there any additional information the provider should know? No Last Office Visit: 08/24/2024 Next scheduled appointment: Visit date not found Best number to reach caller: [phone] Best time to reach caller: ANY Is it OK to leave a detailed voice message? Yes Farideh Parada documented in this encounter [facility] 08-29-2024 Note General Surgery Offi ce/Clinic Note Chief Complaint consultation for GERD and colonoscopy HPI Staff 58 year old male presents on consultation from Dr. Olivares for GERD and screening colonoscopy. Patient has long standing history of GERD. Has been taking Prilosec for approximately 10 years. Recently he was experiencing breakthrough symptoms therefore increased Omeprazole to 40mg BID and added Pepcid daily. Reports he is currently symptom free on this regimen. Denies abdominal or rectal pain. No rectal bleeding or change in bowel habits. Denies nausea or vomiting. No unexplained weight loss. Never had colonoscopy in the past. No known family history of colon cancer. History of Present Illness 58 yo male with h/o htn, lumbar radiculopathy, referred for refractory GERD, colorectal screening; breakthrough GERD after eating, despite bid PPI; added H2 sharmin with improvement; no dysphagia or odynophagia, no early satiety; no N/V or bowel changes, no blood in stools; only abd operation RIHR; no previous EGD/colonoscopy; on Diclofenac daily, no asa; no tobacco use; no fmhx of GI malignancy or IBD. Review of Systems PHQ Score Initial Depression Screen Score: 0 SCORE ROS - Provider Constitutional: no fever, no sweats, no weight loss. Eyes: no glasses, no blurred vision, no visual loss. ENMT: no dentures, no hoarseness, no swallowing difficulties, no hearing loss, no ear infection(s), no nose bleeds. Cardiovascular: normal blood pressure, no chest pain, regular heartbeat, no heart murmur. Respiratory: no shortness of breath, no cough, no asthma, no wheezing. Gastrointestinal: no nausea, no vomiting, no diarrhea, no constipation, no blood in stool, no change in bowel habits, no abdominal pain, no hepatitis. Genitourinary: no kidney stones, no urine infection, no dysuria. Musculoskeletal: no pain, no weakness. Skin: no changing moles, no rash, no skin lumps. Neurologic: no seizures, no epilepsy, no headache. Psychiatric: no emotional or psychiatric problem. Heme/Lymph: no bleeding problems, no anemia, no blood clots, no transfusions. Allergy/Immunologic: no swollen lymph nodes/glands, no IV drug abuse. Other: Additional ROS info: Except as noted in the above Review of Systems and in the History of Present Illness, all other systems have been reviewed and are negative or noncontributory. Physical Exam Vitals & Measurements HR: 76(Peripheral) RR: 16 BP: 116/76 HT: 72 in HT: 182.8 cm WT: 86.2 kg WT: 190.038 lb BMI: 25.8 HEENT: normal conjunctiva, sclera clear, no scleral icterus, EOM intact, PERRLA, oral mucosa moist without lesions. Neck: trachea midline, no mass, symmetric, no thyromegaly or nodules, no adenopathy Respiratory: lungs CTA, respirations non labored. Cardiovascular: regular rate and rhythm, no murmur, no pedal edema or varicosities. Gastrointestinal: soft, non distended, no tenderness, no masses, no palpable hernias, diastasis recti no, no hepatosplenomegaly; normal bs Lymphatic: no cervical adenopathy, no supraclavicular adenopathy. Musculoskeletal: normal gait, digits and nails without infection, nodes, cyanosis, clubbing. Skin: no rashes, no lesions, no ulcers, no subcutaneous nodules, induration. Psychiatric/Neuro: oriented to time, place, person, judgement normal, affect appropriate for age, insight intact, no focal deficits. Tests: review of old records completed , Discussed surgical options, risks, and possible complications with patient. Assessment/Plan 1. GERD (gastroesophageal reflux disease) (K21.9: Gastro-esophageal reflux disease without esophagitis) plan EGD and colonoscopy under anesthesia for further evaluation; informed consent obtained. 2. Screening for malignant neoplasm of colon (Z12.11: Encounter for screening for malignant neoplasm of colon) see # 1 Follow-up No qualifying data available Problem List/Past Medical History Ongoing BMI 25.0-25.9,adult GERD (gastroesophageal reflux disease) Hypertension Lumbar radiculopathy Osteoporosis Overweight Reducible right inguinal hernia Screening for malignant neoplasm of colon Historical Chondromalacia Procedure/Surgical History Repair of right inguinal hernia (05/07/2024), Cataract extraction, CT guided kyphoplasty of fracture of lumbar spine, Decompression laminectomy of lumbar spine, History of ankle surgery, Implantation of retinal attachment. Medications diclofenac sodium 75 mg Oral EC Tab, 75 mg= 1 tab(s), Oral, BID gabapentin 800 mg Tab, 800 mg= 1 tab(s), Oral, QID hydrochlorothiazide 12.5 mg Tab, 12.5 mg= 1 tab(s), Oral, Daily lisinopril 40 mg Tab, 40 mg= 1 tab(s), Oral, Daily methocarbamol, 500 mg, Oral, q4hr, PRN omeprazole 40 mg Cap-DR, 40 mg= 1 cap(s), Oral, BID Pepcid Prozac 40 mg Cap, 40 mg= 1 cap(s), Oral, Daily teriparatide 600 mcg/2.4 mL subcutaneous device, 20 mcg, SubCutaneous, Daily traZODONE 100 mg Tab, 100 mg= 1 tab(s), Oral, Once a day (at bedtime) Wellbutrin SR 150 mg Tab-ER, 150 mg= (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 [facility] Comment on above: Result Comment: Elec tronically Signed By: CARYN QUISPE, Wilmer Dover.ella\Date and Time Signed: 08/29/24 16:27 EST 08-28-2024 Telephone encounter Note Call received for Wilmer Ashley MD regarding Enrrique Steelemer. Caller: self Patient Identified by Name and : Enrrique Madera 1965 Reason for Call: General - Pt is requesting his surgery with Dr. Ashley. He said someone is suppose to of called to start the process. Please call pt to update . Is there any additional information the provider should know? No Last Office Visit: 08/24/2024 Next scheduled appointment: Visit date not found Best number to reach caller: [phone] Best time to reach caller: ANY Is it OK to leave a detailed voice message? Yes Farideh Parada [facility] 08-24-2024 Note HNO ID: [id number] Author: WILMER ASHLEY MD Service: ? Author Type: Physician Type: Progress Notes Filed: 08/24/2024 08:51 Note Text: SPINE SURGERY NEW PATIENT This is a virtual visit using Eyep[employer] Video Visit. It required patient-provider interaction for the medical decision making as documented below. I have communicated my name and active licensure. The patient's identity and physical location were verified at the time of this visit. Either the patient or their legal telephone sales representative has been informed of the risks and benefits of -- and alternatives to -- treatment through a remote evaluation and consents to proceed with the evaluation remotely. PCP: Hany Olivares MD REFERRING PROVIDER: No referring provider defined for this encounter. SUBJECTIVE HISTORY OF PRESENT ILLNESS: Enrrique Madera is a 58 year old male presenting with spouse. CHIEF COMPLAINT: left leg pain/back pain PRECIPITATING EVENT: not with current symptoms, however had an accident and compression fracture DURATION OF SYMPTOMS: Greater Than 1 Year history of multiple spine surgeries and injuries has a recent T12 fracture on forteo currently-will complete 6 months in November 2024 has low back pain, but main concern in proximal left leg pain thigh to knee noted weakness and atrophy of left proximal leg hard to get up from chair or bent position below copied from [facility] note Pain Radiation: down the right thigh, below the right knee, and to the right foot/feet Aggravating Factors: Standing, Walking Alleviating Factors: Medications, Lying supine Pain Ratio: Pain in the leg(s) is greater than in the back. DERMATOMAL DISTRIBUTION: Right L3 AMBULATORY STATUS: Impaired Community Distances ANTIPLATELET OR ANTICOAGULATION STATUS: No PREVIOUS CONSERVATIVE TREATMENTS: RX NSAIDS for 3 Months or Greater (diclofenac (Voltaren, [place])) PT Narcotic: Buprenorphine patch Membrane stabilizer: Gabapentin tried, now Lyrica Oral steroids Tylenol Injections: Multiple different injections over the years - 04/23/24: Right L3-[address] Bradshaw- >80% improvement for 4 days PREVIOUS SPINAL SURGERY: SURGERY #1: ~1979's L5-S1 decompression SURGERY #2: ~1984 L4-L5 decompression SURGERY #3: Thoracic kyphoplasty SURGERY #4: 07/25/[address] Daniel Childress L2-5 decompressive laminectomy with partial medial facetectomies ACTIVE PROBLEM LIST Burst Fracture of T12 Vertebra (Hcc) Chronic Pain Gerd Without Esophagitis Htn (Hypertension) Brady (Obstructive Sleep Apnea) C7 Cervical Fracture (Hcc) Compression Fracture of Vertebral Column (Hcc) Low Back Pain Back Pain of Thoracolumbar Region Acute On Chronic Back Pain PAST MEDICAL HISTORY Diagnosis Date Burst fracture of T12 vertebra (HCC) 03/17/2014 Carpal tunnel syndrome of right wrist 01/26/2023 Chondromalacia of right knee 09/09/2020 Added automatically from request for surgery [id number] Chronic pain 03/01/2024 Depressive disorder 03/01/2024 Erectile dysfunction due to arterial insufficiency 03/01/2024 GERD without esophagitis 03/01/2024 HTN (hypertension) 03/01/2024 Low back pain 03/17/2014 BRADY (obstructive sleep apnea) 03/19/2024 No past surgical history on file. No family history on file. Social History Tobacco Use Smoking status: Former Types: Cigarettes Smokeless tobacco: Former Types: Snuff Substance Use Topics Alcohol use: Not Currently ALLERGIES Allergen Reactions Oxycodone Unknown Other Reaction(s): addiction/former addict. Agreeable to use during acute pain episode hospitalization MEDICATIONS: Teriparatide (FORTEO) 20 mcg/dose (600mcg/2.4mL) Inject 0.08 mL subcutaneously once daily. Pregabalin (LYRICA) 200 mg capsule Take 1 [...] 90 tab(s), 1 Refill(s), Pharmacy: [id number], TAKE 2 TO 3 TABLETS BY MOUTH ONCE DAILY NEEDED, 182.88, cm, 12/16/23 6:36:00 EDT, Height, 89.3, kg, 12/16/23 6:42:00 EDT, Weight Dosing REVIEW OF SYSTEMS: GENERAL: No weight loss or malaise MUSCULOSKELETAL: Negative for joint pain, swelling or muscle pain NEURO: No history of headaches, syncope, paraly (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 [facility] 08-24-2024 History of Presen t illness Narrative Images from the original note were not included. SPINE SURGERY NEW PATIENT This is a virtual visit using Eyepicom Video Visit. It required patient-provider interaction for the medical decision making as documented below. I have communicated my name and active licensure. The patient's identity and physical location were verified at the time of this visit. Either the patient or their legal telephone sales representative has been informed of the risks and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 Pain Level: 7 Description: Aching;Burning;Numbness;Sore;Tig htness Duration Units: Months Frequency: Continuous Intervention/Comfort measure: Medication;Reposition;Positionin g Pain Radiation: down the right thigh, below the right knee, and to the right foot/feet Aggravating Factors: Standing, Walking Alleviating Factors: Medications, Lying supine Pain Ratio: Pain in the leg(s) is greater than in the back. DERMATOMAL DISTRIBUTION: Right L3 AMBULATORY STATUS: Impaired Community Distances ANTIPLATELET OR ANTICOAGULATION STATUS: No PREVIOUS CONSERVATIVE TREATMENTS: RX NSAIDS for 3 Months or Greater (diclofenac (Voltaren, [place])) PT Narcotic: Buprenorphine patch Membrane stabilizer: Gabapentin tried, now Lyrica Oral steroids Tylenol Injections: Multiple different injections over the years - 04/23/24: Right L3-[address] Bradshaw- >80% improvement for 4 days PREVIOUS SPINAL SURGERY: SURGERY #1: ~1979' L5-S1 decompression SURGERY #2: ~1984 L4-L5 decompression SURGERY #3: Thoracic kyphoplasty SURGERY #4: 07/25/[address] Daniel Childress L2-5 decompressive laminectomy with partial medial facetectomies REVIEW OF SYSTEMS: GENERAL: No weight loss or malaise MUSCULOSKELETAL: See HPI NEURO: No history of headaches, syncope, paralysis, seizures or tremors MEDICATIONS: Teriparatide (FORTEO) 20 mcg/dose (600mcg/2.4mL) Inject 0.08 mL subcutaneously once daily. Pregabalin (LYRICA) 200 mg capsule Take 1 [...] 90 tab(s), 1 Refill(s), Pharmacy: [facility], TAKE 2 TO 3 TABLETS BY MOUTH ONCE DAILY NEEDED, 182.88, cm, 12/16/23 6:36:00 EDT, Height, 89.3, kg, 12/16/23 6:42:00 EDT, Weight Dosing Patient Entered Questionnaires 04/04/2024 05/02/2024 06/13/2024 Spine Questions Pain Location: Lower back Leg Lower back Symptoms from neck/cervical spine: Yes No No 04/04/2024 Spine Red Flags Any type of cancer: No Unexplained fever: No Bowel or bladder disfunction: No Unintentional weight loss: Yes Osteoporosis: Yes 04/04/2024 Neck Questionnaires Benzel Modified RAYMUNDO Score 15 (Mild Myelopathy Symptoms) PROMIS Score Percentiles 03/25/2024 05/02/2024 06/13/2024 Physical Health Physical Function Percentile 0 4 2 Sleep Percentile 0 66 34 Fatigue Percentile 3 38 8 Pain Interference Percentile 0 1 1 03/25/2024 05/02/2024 06/13/2024 PROMIS SOCIAL ROLE SCORE Social Role Satisfaction Percentile 1 8 5 03/25/2024 PROMIS Global Health Scale Physical Health Percentile 0 Mental Health Percentile 2 Percentiles provide an indication of how the patient's score ranks in relation to the general population. Higher percentile rankings indicate better function/quality of life. 50th percentile is the average of the general population and indicates half of respondents had a worse score. Descriptive Summary for PROMIS Physical Function T-score = 29 (Percentile 2) Unable - Do 2 hours of physical labor Unable - Walk at a normal speed. Depression Screenin03/25/2024 05/02/2024 PHQ-9 Score 19 9 03/25/2024 05/02/2024 06/13/2024 PHQ-9 Self-harm Question Question 9 Several days Not at all Not at all PHQ-9 Self-Harm (Item 9) response options: 0 Not at all 1 Several days 2 More than half the days 3 Nearly every day PHQ-9 Levels: 0-4 No to mild depression 5-9 Mild depression 10-14 Moderate depression 15-19 Moderately severe depression 20-27 Severe depression OBJECTIVE: PHYSICAL EXAM: There were no vitals taken for this visit. GENERAL APPEARANCE: Well nourished, well developed, and no apparent distress. NEURO PSYCH: Patient oriented to person, place, and time. Mood pleasant. Benign affect. Exam limited due to virtual visit DATA REVIEW:Diagnostic tests reviewed for today's visit, films/specimens were personally reviewed by me: Imaging and outside records independently reviewed Updated MRI and XR ASSESSMENT/PLAN (M80.80XA) Other osteoporosis with current pathological fracture, initial encounter (primary encounter diagnosis) (M54.16) Lumbar radiculopathy (Z98.890) Status post lumbar spine surgery for decompression of spinal cord Enrrique Madera will continue with medical management of his/her condition. 1. Enrrique presents today for follow up. He has decided to transition over to a pain environmental manager locally, so he does not need an order for an injection here. He has also decided to obtain another surgical opinion from Dr. Ashley- scheduled with him in July. Scheduled to follow up with Dr. Briceno later this month regarding his bone health. 2. Follow up: Not required, establishing with Dr. Ashley Imaging Ordered: None The majority of the visit was spent counseling and/or coordinating care for the patient. The patient was counseled regarding lumbar radiculopathy. Total face to face time was 20 minutes. SIGNATURE: Kian Mcdermott APRN.CNP PATIENT NAME: Enrrique Madera DATE: June 15, 2024 TIME: 10:25 AM PAGER: documented in this encounter [facility] 06-11-2024 Evaluation note Diagnosis Onset Date Resolution Arthritis of lumbosacral spine acute June 11, 2024 9:00am Lumbar degenerative disc disease acute June 11 9:00am Other chronic pain acute Octobe r 2023 9:00am Post laminectomy syndrome acute June 11 9:00am Sacroiliitis acute May 9:00am [facility] Work Phone: [phone]) 862-764010-28-2024 Evaluation note* Diagnosis Onset Date Resolution Status Admit Date Arthritis of lumbosacral spine acute June 11, 2024 9:00am Lumbar degenerative disc disease acute June 11 9:00am Other chronic pain acute Octobe r 2023 9:00am Post laminectomy syndrome acute June 11, 2024 9:00am Sacroiliitis acute May 9:00am Arthritis of lumbosacral spine acute July 03, 2024 9:19am Other chronic pain acute Novemb er 2023 9:19am Post laminectomy syndrome acute July 03, 2024 9:19am [facility] Work Phone: [phone] 634-154110-18-2024 Telephone encounter Note* Telephone Encounter - Quynh Shelby - 06/01/2024 3:18 PM EDT POPULATION HEALTH NAVIGATION OUTREACH Action/FYI Patient Declined Reason for Outreach Care Gap/HCC or Scheduling Wellness Visits Care Gaps due: Physical Therapy Patient Contacted: Spoke to patient/parent/or legal guardian Patient identified by name and : Yes Care Gap/HCC/Scheduling Wellness actions taken: Patient declined: Patient Declines Navigation Scheduling / Outreach Navigation Signature: Quynh Shelby June 01, 2024 3:18 PM [facility]10-18-2024 Miscellaneous Notes* Telephone Encounter - Quynh Shelby - 06/01/2024 3:18 PM EDT POPULATION HEALTH NAVIGATION OUTREACH Action/FYI Patient Declined Reason for Outreach Care Gap/HCC or Scheduling Wellness Visits Care Gaps due: Physical Therapy Patient Contacted: Spoke to patient/parent/or legal guardian Patient identified by name and : Yes Care Gap/HCC/Scheduling Wellness actions taken: Patient declined: Patient Declines Navigation Scheduling / Outreach Navigation Signature: Quynh Shelby June 01, 2024 3:18 PM documented in [facility]24 Telephone encounter Note * Telephone Encounter - Dina Bauer RN - 05/16/2024 11:11 AM EDT Noted. [facility]10-02-2024 Miscellaneous Notes* Telephone Encounter - Dina Bauer RN - 05/16/2024 11:11 AM EDT Noted. * Telephone Encounter - Izabella Seaman - 05/15/2024 4:43 PM EDT Pt called to ask CC to fax office note to Maria Del Carmen Kim for his STD. I faxed them to number [employer] phone OV 04/25 & 05/02. documented in this encounterPark[facility]10-01-2024 Telephone encounter Note * Telephone Encounter - Izabella Seaman - 05/15/2024 4:43 PM EDT Pt called to ask CC to fax office note to Maria Del Carmen Kim for his STD. I faxed them to number providedby phone OV 04/25 & 05/02. [facility]10-01-2024 NoteHistory and Physical Patient: ENRRIQUE MADERA Age: 58 years Sex: Male : 1965 Associated Diagnoses: None Author: Wilmer RUBIN MD Subjective no changes to [facility]:Result Comment: Electronically Signed By: Wilmer RUBIN MD\.br\Date and Time Signed: 05/15/24 08:13 [id number] Telephone encounter Note* Telephone Encounter - Dina Bauer RN - 05/11/2024 9:56 AM EDT Pt called and to give number to call [employer] [phone] (opt Provider, Auth Dept) to give verbal prior auth for the [employer]. Called [employer] at number provided. Unable to speak with anyone, requesting provider Tax ID #. Routed to provider for review. [facility]09-27-2024 Miscellaneous Notes* Telephone Encounter - Dina Bauer RN - 05/11/2024 9:56 AM EDT Pt called and to give number to call [employer] [phone] (opt Provider, Auth Dept) to give verbal prior auth for the [employer]. Called [employer] at number provided. Unable to speak with anyone, requesting provider Tax ID #. Routed to provider for review. documented in this encounterParkview Health09-23-2024 Evaluation + Plan note Extracted from: Title:ANES Post-operative Note---General Author: Enrrique Erwin MD Date:05/07/24 Plan Transfer/Discharge: Transfer/Discharge Discharge when meets criteria ( To home ). Extracted from: Title:ANES Pre-operative Note 2022 Author:Enrrique Rodriguez Date:05/07/24 Patient: ENRRIQUE MADERA Age: 58 years Sex: Male : 1965 Associated Diagnoses: None Author: Enrrique Erwin MD Preoperative Information Anesthesia Preop Info: Time patient last ate or drank 05/07/2024 00:00:00. Anesthesia history: Patient history: None. Family history+: None. Informed consent: Signed by patient. Re-evaluation prior to induction: Initial evaluation reviewed: No significant change. Review of Systems Eye Ear/Nose/Mouth/Throat Respiratory: No shortness of breath, No cough. Cardiovascular: Negative, No chest pain. Gastrointestinal: No heartburn. Musculoskeletal Neurologic Health Status Allergies: Allergic Reactions (Selected) No Known Allergies No Known Medication Allergies, Allergies (2) ActiveSeverityReaction No Known AllergiesNone Documented No Known Medication AllergiesNone Documented Current medications: (Selected) Inpatient Medications Ordered HYDROmorphone 1 mg/mL injectable solution: 0.2 mg = 0.2 mL, Injection, IV Push, q2min PRN Pain for 10 dose(s), Stop date Limited # of times, Routine, Start date 05/07/24 9:00:00 EDT, 05/07/24 9:00:00 EDT Lactated Ringers IV Liseth 1000 mL 1,000 mL: 1,000 mL, IV, 100 mL/hr, Routine, Start date 05/07/24 9:00:00 EDT, 10 hour(s), Total volume (mL): 1,000, 86.1 kg, 2.08, m2 Lactated Ringers IV Ilseth 1000 mL 1,000 mL: 1,000 mL, IV, 150 mL/hr, Routine, Start date 05/07/24 6:00:00 EDT, 6.7 hour(s), Total volume (mL): 1,000, 86.1 kg, 2.08, m2 promethazine additive 12.5 mg + Sodium Chloride 0.9% IV Liseth 50 mL (INT) 50 mL: IV Piggyback, Once PRN Nausea/Vomiting, Routine, Start date 05/07/24 9:00:00 EDT, 151.5 mL/hr, Infuse over 20 minute(s), 05/07/24 9:00:00 EDT Documented Medications Documented Prozac 40 mg Cap: 40 mg = 1 cap(s), Oral, Daily, Refills(s) 0 Wellbutrin XL 300 mg/24 hours Tab-ER: 300 mg = 1 tab(s), Oral, Daily, Refills(s) 0 buprenorphine: as directed, TransDermal, Refills(s) 0, Pain calcium-vitamin D: Refill(s) 0 diclofenac sodium 75 mg Oral EC Tab: 75 mg = 1 tab(s), Oral, BID, Refills(s) 0 gabapentin 600 mg Tab: 600 mg = 1 tab(s), Oral, TID, Refills(s) 0 lisinopril 40 mg Tab: 40 mg = 1 tab(s), Oral, Daily, Refills(s) 0 magnesium citrate: Refill(s) 0 methocarbamol: Refills(s) 0 traZODONE 50 mg Tab: 50 mg = 1 tab(s), Oral, Once a day (at bedtime), Refills(s) 0, Home Medications (10) Active buprenorphine as directed, TransDermal calcium-vitamin D diclofenac sodium 75 mg Oral EC Tab 75 mg = 1 tab(s), Oral, BID gabapentin 600 mg Tab 600 mg = 1 tab(s), Oral, TID lisinopril 40 mg Tab 40 mg = 1 tab(s), Oral, Daily magnesium citrate methocarbamol Prozac 40 mg Cap 40 mg = 1 cap(s), Oral, Daily traZODONE 50 mg Tab 50 mg = 1 tab(s), Oral, Once a day (at bedtime) Wellbutrin XL 300 mg/24 hours Tab-ER 300 mg = 1 tab(s), Oral, Daily , Medications (4) Active Scheduled: (0) Continuous: (2) Lactated Ringers 1,000 mL 1,000 mL, IV, 150 mL/hr Lactated Ringers 1,000 mL 1,000 mL, IV, 100 mL/hr PRN: (2) HYDROmorphone 1 mg/mL SOLN [F] 0.2 mg 0.2 mL, IV Push, q2min promethazine 12.5 mg + Sodium Chloride 0.9% 50 mL 12.5 mg 0.5 mL, IV Piggyback, Once Problem list: All Problems Hypertension / SNOMED CT 6354914284 / Confirmed Lumbar radiculopathy / SNOMED CT 709601928 / Confirmed Osteoporosis / SNOMED CT 240108512 / Confirmed Reducible right inguinal hernia / SNOMED CT 719262419 / Confirmed 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 Comments: 04/25/2024 EDT 9:52 EDT - Tosin Agustin LPN Outside Source Comment: Overview: Added automatically from request for surgery [id number] Family History: Primary malignant neoplasm of lung Mother Procedure history: Decompression laminectomy of lumbar spine x2 (0187479598). History of ankle surgery (1062556490). kyphoplasty of fracture of lumbar spine (4425897029). Social History Social & Psychosocial Habits Alcohol 4Risk Assessment: Denies Alcohol Use Substance Abuse 05/07/2024isk Assessment: Denies Substance Abuse Tobacco 05/07/2024 Tobacco Use: Former smoker, quit more Smokeless tobacco use: Never Type: Cigarettes Tobacco use per day: 0.5 Started at age: 16.0 Years Stopped at age: 29 Years . Physical Examination Vital Signs 05/07/2024 6:14 EDT Heart Rate Monitored 80 bpm Systolic Blood Pressure 147 mmHg HI Diastolic Blood Pressure 96 mmHg HI Blood Pressure Location Left arm Mean Arterial Pressure, Monitered 113 mmHg 05/07/2024 6:14 EDT Heart Rate Monitored 81 bpm SpO2 95 % 05/07/2024 6:13 EDT Respiratory Rate 16 br/min 05/07/2024 6:12 EDT Temperature Axillary 36.5 DegC 05/07/2024 6:12 EDT Systolic Blood Pressure 140 mmHg HI Diastolic Blood Pressure 70 mmHg Blood Pressure Location Right arm Mean Arterial Pressure, Monitered 94 mmHg 05/07/2024 6:12 EDT Apical Heart Rate 86 bpm Vital Signs (last 24 hrs) Last Charted Temp Czitvisx78.5 DegC (MAY 07 06:12) Heart Rate Uamcvjvdb61 bpm (MAY 07 06:14) SBPH 147 mmHg (MAY 07:14) DBPH 96 mmHg (MAY 07:14) Airway: Mallampati classification: II (soft palate, fauces, uvula visible). Respiratory: Lungs are clear to auscultation, Respirations are non-labored, adequate air exchange. Cardiovascular: Regular rhythm, No murmur. Review / Management Results review: No qualifying data available . Plan [place] [employer]esthesi[employer] (ASA) physical status classification: Class III. Anesthetic Preoperative Plan: Anesthesia General. Regional TAP block. Addendum by Enrrique Erwin MD on 2023 9:08 EDT [facility] 09-23-2024 Hospital Discharge instructions Patient Education 05/07/2024 09:51:12 Laparoscopic Inguinal Hernia Repair, Adult, Care After Laparoscopic Inguinal Hernia Repair, Adult, Care After The following information offers guidance on how to care for yourself after your procedure. Your health care provider may also give you more specific instructions. If you have problems or questions, contact your health care provider. What can I expect after the procedure? After the procedure, it is common to have: Pain. Swelling and bruising around the incision area. Scrotal swelling, in males. Some fluid or blood draining from your incisions. Follow these instructions at home: Medicines Take ggle-juz-yeeachx and prescription medicines only as told by your health care provider. Ask your health care provider if the medicine prescribed to you: ?Requires you to avoid driving or using machinery. ?Can cause constipation. You may need to take these actions to prevent or treat constipation: ?Drink enough fluid to keep your urine pale yellow. ?Take cetd-usy-qtbszvl or prescription medicines. ?Eat foods that are high in fiber, such as beans, whole grains, and fresh fruits and vegetables. ?Limit foods that are high in fat and processed sugars, such as fried or sweet foods. Incision care Follow instructions from your health care provider about how to take care of your incisions. Make sure you: ?Wash your hands with soap and water for at least 20 seconds before and after you change your bandage (dressing). If soap and water are not available, use hand passport application examiner. ?Change your dressing as told by your health care provider. ?Leave stitches (sutures), skin glue, or adhesive strips in place. These skin closures may need to stay in place for 2 weeks or longer. If adhesive strip edges start to loosen and curl up, you may trim the loose edges. Do not remove adhesive strips completely unless your health care provider tells you to do that. Check your incision area every day for signs of infection. Check for: ?More redness, swelling, or pain. ?More fluid or blood. ?Warmth. ?Pus or a bad smell. Wear loose, soft clothing while your incisions heal. Managing pain and swelling If directed, put ice on the painful or swollen areas. To do this: Put ice in a plastic bag. Place a towel between your skin and the bag. Leave the ice on for 20 minutes, 2 3 times a day. Remove the ice if your skin turns bright red. This is very important. If you cannot feel pain, heat, or cold, you have a greater risk of damage to the area. Activity Do not lift anything that is heavier than 10 lb (4.5 kg), or the limit that you are told, until your health care provider says that it is safe. Ask your health care provider what activities are safe for you. A lot of activity during the first week after surgery can increase pain and swelling. For 1 week after your procedure: ?Avoid activities that take a lot of effort, such as exercise or sports. ?You may walk and climb stairs as needed for daily activity, but avoid long walks or climbing stairs for exercise. General instructions If you were given a sedative during the procedure, it can affect you for several hours. Do not drive or operate machinery until your health care provider says that it is safe. Do not take baths, swim, or use a hot tub until your health care provider approves. Ask your healthcare provider if you may take showers. You may only be allowed to take sponge baths. Do not use any products that contain nicotine or tobacco. These products include cigarettes, chewing tobacco, and vaping devices, such as e-cigarettes. If you need help quitting, ask your health careprovider. Keep all follow-up visits. This is important. Contact a health care provider if: You have any of these signs of infection: ?More redness, swelling, or pain around your incisions or your groin area. ?More fluid or blood coming from an incision. ?Warmth coming from an incision. ?Pus or a bad smell coming from an incision. ?A fever or chills. You have more swelling in your scrotum, if you are male. You have severe pain and medicines do not help. You have abdominal pain or swelling. You cannot urinate or have a bowel movement. You faint or feel dizzy. You have nausea and vomiting. Get help right away if: You have redness, warmth, or pain in your leg. You have chest pain. You have problems breathing. These symptoms may represent a serious problem that is an emergency. Do not wait to see if the symptoms will go away. Get medical help right away. Call your local emergency services (911 in the [place] Do not drive yourself to the hospital. Summary Pain, swelling, and bruising are common after the procedure. Check your incision area every day for signs of infection, such as more redness, swelling, or pain. Put ice on painful or swollen areas for 20 minutes, 2 3 times a day. This information is not intended to replace advice given to you by your health care provider. Make sure you discuss any questions you have with your health care provider. Document Revised: 03/31/2021 Document Reviewed: 03/31/2021 [email or web address] Patient Education 2023 Instant Information. 05/07/2024 09:51:02 Post Op Patient Instructions - FT (CUSTOM) Follow Up Care 04/27/2024 11:40:43 With:Wilmer RUBIN Address: [facility] [address], [address] [place] [address]- Business (1) When:7 to 10 days [facility] 09-23-2024 NoteProgress Note-Physician Patient: ENRRIQUE MADERA Age: 58 years Sex: Male : 1965 Associated Diagnoses: None Author: Enrrique Erwin MD Postoperative Information Postoperative disposition: Postoperative disposition: To PACU. Optimetrix number: Optimetrix number [id number]. Anesthetic utilized: General. Regional: TAP . Health Status Allergies: Allergic Reactions (Selected) No Known Allergies No Known Medication Allergies Physical Examination Vital Signs 05/07/2024 9:55 EDT Heart Rate Monitored 80 bpm SpO2 80 % LOW 05/07/2024 9:54 EDT Respiratory Rate 16 br/min 05/07/2024 9:53 EDT Systolic Blood Pressure 162 mmHg HI Diastolic Blood Pressure 84 mmHg Blood Pressure Location Right arm Mean Arterial Pressure, Monitered 110 mmHg 05/07/2024 9:40 EDT Heart Rate Monitored 82 bpm Respiratory Rate Monitored 12 br/min Systolic Blood Pressure 136 mmHg Diastolic Blood Pressure 88 mmHg Mean Arterial Pressure, Cuff 104 mmHg SpO2 96 % 05/07/2024 9:35 EDT Heart Rate Monitored 75 bpm Respiratory Rate Monitored 12 br/min Systolic Blood Pressure 128 mmHg Diastolic Blood Pressure 83 mmHg Mean Arterial Pressure, Cuff 98 mmHg SpO2 99 % 05/07/2024 9:30 EDT Heart Rate Monitored 73 bpm Respiratory Rate Monitored 13 br/min Systolic Blood Pressure 127 mmHg Diastolic Blood Pressure 78 mmHg Mean Arterial Pressure, Cuff 94 mmHg SpO2 98 % 05/07/2024 9:25 EDT Heart Rate Monitored 72 bpm Respiratory Rate Monitored 13 br/min Systolic Blood Pressure 119 mmHg Diastolic Blood Pressure 75 mmHg Mean Arterial Pressure, Cuff 90 mmHg SpO2 98 % 05/07/2024 9:22 EDT Temperature Temporal Artery 36.7 DegC Heart Rate Monitored 71 bpm Respiratory Rate Monitored 20 br/min Systolic Blood Pressure 100 mmHg Diastolic Blood Pressure 70 mmHg Mean Arterial Pressure, Cuff 80 mmHg SpO2 97 % Pain Assessment: Controlled. General: Awake, Appropriate. Respiratory: Adequate air exchange. Cardiovascular: Stable. Neurological Assessment Anesthetic outcome No anesthetic complications noted. Adequate pain relief. Review / Management Condition: Stable. Plan Transfer/Discharge: Transfer/Discharge Discharge when meets criteria ( To home ).[facility] Hospital[facility] above:Result Comment: Electronically Signed By: Rip QUISPE, Enrrique Payne.br\Date and Time Signed: 05/07/24 10:15 EDT 05-07-2024 NotePatient Education - Text Gastroenterology Laparoscopic Inguinal Hernia Repair, Adult, Care After The following information offers guidance on how to care for yourself after your procedure. Your health care provider may also give you more specific instructions. If you have problems or questions, contact your health care provider. What can I expect after the procedure? After the procedure, it is common to have: ? Pain. ? Swelling and bruising around the incision area. ? Scrotal swelling, in males. ? Some fluid or blood draining from your incisions. Follow these instructions at home: Medicines ? Take lsno-bpm-gbwtpus and prescription medicines only as told by your health care provider. ? Ask your health care provider if the medicine prescribed to you: ? Requires you to avoid driving or using machinery. ? Can cause constipation. You may need to take these actions to prevent or treat constipation: ? Drink enough fluid to keep your urine pale yellow. ? Take brnf-kvr-herdcos or prescription medicines. ? Eat foods that are high in fiber, such as beans, whole grains, and fresh fruits and vegetables. ? Limit foods that are high in fat and processed sugars, such as fried or sweet foods. Incision care ? Follow instructions from your health care provider about how to take care of your incisions. Makesure you: ? Wash your hands with soap and water for at least 20 seconds before and after you change your bandage (dressing). If soap and water are not available, use hand passport application examiner. ? Change your dressing as told by your health care provider. ? Leave stitches (sutures), skin glue, or adhesive strips in place. These skin closures may need tostay in place for 2 weeks or longer. If adhesive strip edges start to loosen and curl up, you may trim the loose edges. Do not remove adhesive strips completely unless your health care provider tellsyou to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 WEEKEND COVERAGE: [facility] COVERAGE: Days: [phone], please page Mckayla Rejitalat for patient issues. Nights: [phone], please page Team GIM 6: G/H 8th floor: [address]360; Non 8th floor [address] Subjective INTERVAL HPI: -Reports persistent RLE spasm, [...] organomegaly EXTREMITIES: (+) [facility]. Hip flexion limited by pain. Normal strength with knee extension, dorsi/plantar flexion of ankle. Diminished sensation of right thigh, normal sensation past knee. Extremities normal, no deformities, edema, clubbing. Good capillary refill. No ulcers. NEURO: Alert and oriented x3. Grossly normal cognition, motor function, and cranial nerves II-XII intact. PULSES: 2+ radial, 2+ dorsalis pedis Lines, Drains, and Airways Line Duration Peripheral 03/19/24 [facility] Short Right Antecubital 22 Gauge 1 [...] Mcgraw on DATE TIME via verbal communication. Hand Inspector: PSCB Transcribe Date/Time: Mar 19 2024 4:07P Dictated by : BENEDICT REBOLLEDO MD This examination was interpreted and the report reviewed and electronically signed by: NAKIA CARRINGTON MD on Mar 19 2024 4:45PM EST XR SCOLIOSIS PA STAND/LAT 2V Result Date: 03/19/2024 (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[facility] 03-20-2024 NoteHNO ID: [id number] Author: MICHAEL AGUIRRE CPhT Service: Pharmacy Author Type: Disability Representative Type: Plan of Care Filed: 03/20/2024 10:43 Note Text: Insurance investigation completed Patient has active prescription insurance: Yes - Patient's insurance is in-network with [facility] Insurance loaded into [place]: Already loaded Test claim was completed to verify insurance is active: Successful Any questions, please contact your medication automobile accessories salesperson. Pager #: [phone] County [facility]08-05-2024 NoteHNO ID: [id number] Author: SAVANNA SANTIAGO MD Service: Neurosurgery Author Type: Resident Type: Plan of Care Filed: 03/19/2024 18:08 Note Text: Neurosurgery Plan of Care XR L spine flex/ext and XR scoli completed/reviewed. Repeat MRI L spine ophthalmic lens inspector sequence completed/reviewed as well Updated Plan: - No indication for acute neurosurgical intervention - Maintain follow-up appointment with Dr. Violeta Black on 04/06/24 - Pain control per ED/Medicine - NSGY will sign off Plan discussed with chief and staff, Dr. Shai Santiago MD PGY-2, Neurological Surgery Pager: [phone] 6:05 PM 03/19/24 Please page [phone] after 6pm, on weekends, or if unable to reach the above [facility]08-05-2024 Note [id number] Clinic [facility]08-02-2024 [facility] SURGERY Clinical Discharge Summary PERSON INFORMATION Name ENRRIQUE MADERA Age 58 Years 1965 Sex MALE Language Botswanan PCP DEVI MUNOZ DO Marital Status Med Service Pain Management Surgery Acct# Arrival 03/16/2024 07:53:26 Visit Reason SACROILIITIS Acuity LOS 002 22:17 Address: [address] [place] [address] Comment: PROVIDER INFORMATION VITALS INFORMATION Vital Sign [...] Oral (given by mouth) every day as needed.Refills: 1. Medication List: Medications to Continue That [...] Oral (given by mouth) every day as needed.Refills: 1. Medications to Continue That Have Not [...] Oral (given by mouth) every day as needed.Refills: 1. Medications to Continue That Have Not [...] Oral (given by mouth) every day as needed.Refills: 1. Comment: Lab and Radiology Results Labo (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[facility] HospitalPksrvbzf78-22-0307 Note [id number] The history of present illness has been reviewed. There are no changes document. [Electronically Signed on: 03/16/2024 08:26 EDT] JACINTO OLMOS MD [Verified on: 03/16/2024 08:26 EDT] JACINTO OLMOS MD [Transcribed on: 03/15/2024 12:51 EDT] [facility]07-25-2024 Telephone encounter Note* Telephone Encounter - Jaye Fontanez - 03/08/2024 4:36 PM EDT MRI is in get images 02/06/24. [facility]07-25-2024 Miscellaneous Notes* Telephone Encounter - Jaye Fontanez - 03/08/2024 4:36 PM EDT MRI is in get images 02/06/24. * Telephone Encounter - Diane Gonzalez, RN - 03/08/2024 11:04 AM EDT Neuro SPINE CARE COORDINATION QUICK NOTE Spoke with patient to advise him that Kian will review his MRI images over the phone with him nextweek after she reviews them with Dr Black. He verbalized understanding. He is complaining that the pain in the center of his back and right leg is getting worse. Right groin pain also started about 3 days ago, said he is limping some. Taking gabapentin and using Butrans patches. * Telephone Encounter - Dionne Caballero - 03/08/2024 10:35 AM EDT Call received for Kian Mcdermott APRN.FIELD LOGISTICS COORDINATOR regarding Enrrique Madera. Caller: Self Patient Identified by Name and : Yes Reason for Call: General Question Please return call Is there any additional information the provider should know? No Last Office Visit: 03/01/2024 Next scheduled appointment: Visit date not found Best number to reach caller: [phone] Best time to reach caller: any Is it OK to leave a detailed voice message? Yes Dionne Caballero [facility] Telephone encounter Note * Telephone Encounter - Diane Gonzalez RN - 03/08/2024 11:04 AM EDT Neuro SPINE CARE COORDINATION QUICK NOTE Spoke with patient to advise him that Kian will review his MRI images over the phone with him nextweek after she reviews them with Dr Black. He verbalized understanding. He is complaining that the pain in the center of his back and right leg is getting worse. Right groin pain also started about 3 days ago, said he is limping some. Taking gabapentin and using Butrans patches. [facility]07-25-2024 Telephone encounter Note* Telephone Encounter - Dionne Caballero - 03/08/2024 10:35 AM EDT Call received for Kian Mcdermott APRN.CNP regarding Enrrique Madera. Caller: Self Patient Identified by Name and : Yes Reason for Call: General Question Please return call Is there any additional information the provider should know? No Last Office Visit: 03/01/2024 Next scheduled appointment: Visit date not found Best number to reach caller: [phone] Best time to reach caller: any Is it OK to leave a detailed voice message? Yes Dionne Caballero [facility]07-22-2024 Note [id number]#[id number]07-19-2024 NoteHNO ID: [id number] Author: KIAN MCDERMOTT APRN.CNP Service: ? Author [...] contact him with next steps. Kian Mcdermott APRN.CNPLake [facility] History of Present illness Narrative* Kian Mcdermott APRN.CNP - 03/02/2024 3:57 PM EDT Call placed to Enrrique to let him know that his images still have not been pushed through our system from the outside facility. He was provided with mailing and uploading instructions at the visit and plans to bring the disc to [facility] next week. Will review and contact him with next steps. Kian Mcdermott APRN.CNP documented in this encounterParkview Health07-19-2024 [facility] SURGERY Clinical Discharge Summary PERSON INFORMATION Name ENRRIQUE MADERA Age 58 Years 1965 Sex MALE Language Botswanan PCP DEVI MUNOZ DO Marital Status Med Service Pain Management Surgery Acct# Arrival 03/02/2024 08:41:01 Visit Reason LUMBAR NEURITIS Acuity LOS 002 20:59 Address: [address] [place] [address] Comment: PROVIDER INFORMATION VITALS INFORMATION Vital Sign [...] Oral (given by mouth) every day as needed.Refills: 1. Medication List: Medications to Continue That [...] Oral (given by mouth) every day as needed.Refills: 1. Medications to Continue That Have Not [...] Oral (given by mouth) every day as needed.Refills: 1. Medications to Continue That Have Not [...] Oral (given by mouth) every day as needed.Refills: 1. Comment: Lab and Radiolog (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[id number] Note Patient Outreach (SPNSMN) ENRRIQUE MADERA ([id number]) 1965 M Date Time Provider Department 03/02/24 KIAN MCDERMOTTMN During your visit today, we recorded the [...] contact him with next steps. Kian Mcdermott APRN.FIELD LOGISTICS COORDINATOR Allergies As of Date: 03/02/2024 Noted Allergy [...] 90 tab(s), 1 Refill(s), Pharmacy: [facility], TAKE 2 TO 3 TABLETS BY MOUTH [...] 03/01/2024 Encounter Status:Closed by KIAN MCDERMOTT on 03/02/24[facility] 03-01-2024 [id number] No changes to the document [Electronically Signed on: 03/02/2024 09:48 EDT] JACINTO OLMOS MD [Verified on: 03/02/2024 09:48 EDT] JACINTO OLMOS MD [Transcribed on: 03/01/2024 14:27 EDT] [facility]07-18-2024 Instructions* Patient Instructions* Kian Mcdermott APRN.FIELD LOGISTICS COORDINATOR - 03/01/2024 2:15 PM EDT Dear Mr. Madera Please mail in or upload imaging from outside facility. If you upload (see instructions below), please let the office know. Thank you. Mailing instructions: [facility] C/O Violeta Black MD; Kian Mcdermott CNP [facility]0 [facility]/[place] [id number] Upload Instructions: The [facility] has a secure web link that allows you to transfer yourimages to your healthcare provider in advance of your appointment. The attached patient image upload instructions will walk you through the process to transfer your images. Once your images are successfully uploaded into our secure system, you will receive an email confirmation. If you experience any issues during the process or have questions, please email us at I . To upload images to the secure [facility] website please click on the following link: [email or web address] [facility] as the center. OR Use link below I Am Advertising/[email or web address]/[email or web address]_RAD Please have imaging reports faxed to us at [phone] PLEASE NOTE: [employer] Center/Incubator ([employer]) computers are not supported by this application at this time. The application will work with the latest versions of Internet ExploreAppian, Moondoe, Firefox, and [employer]. Thank you Kian Mcdermott APRN.CNP documented in this encounterParkview Health07-18-2024 NoteHNO ID: [id number] Author: KIAN MCDERMOTT APRN.CNP Service: ? Author Type: Nurse Practitioner Type: Progress Notes Filed: 03/01/2024 15:34 Note Text: SPINE SURGERY NEW PATIENT This is an in-person visit. PCP: Hany Olivares MD REFERRING PROVIDER: Self SUBJECTIVE HISTORY OF [...] for thoracic compression fractures. 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 Daniel Childress L2-5 decompressive laminectomy with partial medial [...] 09/09/2020 Added automatically from request for surgery [id number] Chronic pain 03/01/2024 Depressive disorder 03/01/2024 Erectile [...] 90 tab(s), 1 Refill(s), Pharmacy: [facility], TAKE 2 TO 3 TABLETS BY MOUTH ONCE DAILY NEEDED, 182.88, cm, 12/16/23 6:36:00 EDT, Height, 89.3, kg, 12/16/23 6:42:00 EDT, Weight Dosing REVIEW OF SYSTEMS: PAIN ASSESSMENT: See HPI. GENERAL: Denies fever, chills malaise and weight loss. HEENT: No recent change in vision or hearing. CARDIOVASCULAR: Hypertension RESPIRATORY: Denies SOB, sputum production, and hemoptysis. GI: De (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[facility]07-18-2024 History of Present illness Narrative* Kian Mcdermott, HANDLE MACHINE OPERATOR.FIELD LOGISTICS COORDINATOR - 03/01/2024 1:29 PM EDT SPINE SURGERY NEW PATIENT This is an in-person visit. PCP: Hany Olivares MD REFERRING PROVIDER: Self SUBJECTIVE HISTORY OF [...] for thoracic compression fractures. 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 The pain has improvedbut he has not seen as much strength [...] Thoracic kyphoplasty SURGERY #4: 07/25/[address] Daniel Childress L2-5 decompressive laminectomy with partial medial [...] back. Right now, his right sided symptoms areworse than the left. DERMATOMAL DISTRIBUTION: Right: None Left: None AMBULATORY STATUS: Independent Community Distances ANTIPLATELET OR ANTICOAGULATION STATUS: No ACTIVE PROBLEM LIST (none) - all problems resolved or deleted PAST MEDICAL HISTORY Diagnosis Date Burst fracture of T12 vertebra (HCC) 03/17/2014 Carpal tunnel syndrome of right wrist 01/26/2023 Chondromalacia of right knee 09/09/2020 Added automatically from request for surgery [id number] Chronic pain 03/01/2024 Depressive disorder 03/01/2024 Erectile [...] 90 tab(s), 1 Refill(s), Pharmacy: [facility], TAKE 2 TO 3 TABLETS BY MOUTH [...] BICEPS TRICEPS DELTS Wrist Ext Wrist Flex Gunite Nozzle Operator HI R 5 5 5 5 5 [...] Minimal narrowing of the left subarticular recess. Tjxi-ui-qbxoekkgywurd and fiptzlwl-gi-aslqcv left neuroforaminal narrowing. XR L 09/23/23: Multilevel [...] symptoms starting 1 month ago after lifting something.Now having weakness and radiating numbness along a right L3 dermatome. He is very eager to have surgery again. Discussed that without actually visualizing his images, we cannot give any official recommendations. Also discussed that it can take up to a year for post operative symptoms to reach theirpeak improvement. Provided with instructions to get the [...] TIME: 1:29 PM PAGER: documented in this encounterParkview Health07-12-2024 NoteEntered by DEVI MUNOZ DO on February 24, 2024 21:45:15 EDT From: DEVI MUNOZ DO To: [employer] Sent: 02/24/2024 21:45:15 EDT Subject: Medication Management Submitted: Complete:sildenafil (sildenafil 20 mg oral tablet) Signed by DEVI MUNOZ DO 02/24/2024 21:45:00 EDT Approved with modifications: sildenafil (Sildenafil Citrate 20 MG Oral Tablet) TAKE 2 TO 3 TABLETS BY MOUTH ONCE DAILY NEEDED Qty: 90 tab(s) Days Supply: 30 Refills: 1 Substitutions [facility] [employer] To: DEVI MUNOZ DO Sent: February 24, 2024 4:41:23 AM CDT Subject: Medication Management Due: February 25, 2024 12:10:55 AM CDT On Hold Pending Signature Dispensed Drug: sildenafil (sildenafil 20 mg oral tablet), TAKE 2 TO 3 TABLETS BY MOUTH ONCE DAILY NEEDED Quantity: 90 tab(s) Days Supply: 30 Refills: 0 Substitutions Allowed Notes [id number] NoteHNO ID: [id number] Author: CIERA HAMILTON PA-C Service: ? Author Type: Physician Dental Appliance Mechanic Type: Progress Notes Filed: 02/10/2024 16:52 Note [...] increase. Request: 1st available Referring provider: Hany Olivares MD Patient out of state: no 2nd opinion: no Prior spine surgery: yes 07/2023 - [facility] - [address] [place] [address] - scraping of arthritis AND repair 2 [...] left hemilaminectomy. Mild spinal canal narrowing with xoot-ws-tyxfcynv right and moderate left neuroforaminal narrowing. L4-L5: Left paracentral disc protrusion, mild facet arthropathy and laminectomy changes without significant spinal canal narrowing. Minimal narrowing of the left subarticular recess. Xgqh-yt-lepnorfv right and heyvqeat-sb-ngtudr left neuroforaminal narrowing. L5-S1: Laminectomy changes and facet arthropathy. No spinal canal narrowing. Jlbd-zu-gzmipnew right and moderate left neuroforaminal narrowing. Disposition: [...] they can be reviewed during the appt [facility]06-28-2024 History of Present illness Narrative* Ciera Hamilton PA-C - 02/10/2024 4:40 PM EDT Per Triage: Enrrique Madera is a 58 [...] is throbbing & turns sharp with activity i ncrease. Request: 1st available Referring provider: Hany Olivares MD Patient out of state: no 2nd opinion: no Prior spine surgery: yes 07/2023 - [facility] - [address], [place] [address] - scraping of arthritis & repair 2 [...] left hemilaminectomy. Mild spinal canal narrowing with aktn-qz-zovsthhu right and moderate left neuroforaminal narrowing. L4-L5: Left paracentral disc protrusion, mild facet arthropathy and laminectomy changes without significant spinal canal narrowing. Minimal narrowing of the left subarticular recess. Rdhr-re-hqivhzhiqkqzp and qrkhksgc-le-qskapm left neuroforaminal narrowing. L5-S1: Laminectomy changes and facet arthropathy. No spinal canal narrowing. Efsw-tk-fcqeqwft rightand moderate left neuroforaminal narrowing. Disposition: Based on [...] reviewed during the appt Ciera Hamilton PA-C * Melissa Longo - 02/08/2024 8:07 AM EDT Patient name: Enrrique Madera Are you being referred by a [facility] Spine Health Provider or Pain Management Provider at [facility]? No If answer is YES please schedule directly with surgeon, triage does not need to be completed. Is this a self-referral No If not, who is the Referring Provider Hany Olivares MD Is this a 2nd opinion from another spine surgeon? No Were you offered surgery? No MRI/CT/myelogram within 12 months? Yes If NO , please refer to medical spine or PCP to complete above imaging, triage does not need to becompleted If YES, please ask for the name/address of the facility where the MRI/CT/myelogram was completed: [facility] - [address] [place] [address] MRI/CT/myelogram viewable in Epic: No If not, please provide [phone] to fax in imaging reports for review. Also, please inform patient to hand carry imaging disc to appointment. XR (spine) within 12 months: Yes If YES, please ask for the name/address of the facility where the XR was completed: [facility] - [address] [place] [address] Dr. Purvis's patients: Have you had previous EMG/Nerve Conduction Study, Ultrasound, or MRI for thesesame symptoms? If YES, please ask for the [...] position & walking/stairs hard due to weakness, feelslike something collapsed , pain is throbbing & [...] the injections and/[place] [address] Have you tried any other kinds of non-surgical treatments in the last 12 months? (For example: NSAIDS, muscle relaxants, analgesics, oral steroids, Chiropractor, Acupuncture): gabapetin, diclofinaic,tylenol, 4. Are you currently taking daily prescribed narcotic medications for your current symptoms (For example Oxycodone, Hydrocodone, Tramadol, Morphine, Other)? No 5. Have you had previous spinal surgery for this same symptoms? Yes If YES please ask for the name of facility/address of where the surgery was completed: 07/2023 - [facility] - [address] [place] [address] - scraping of arthritis & repair 2 herinations Additional Comments [phone] documented in this encounterParkview Health06-26-2024 NoteHNO ID: [id number] Author: ?, ?, ? Service: ? Author Type: ? Type: Progress Notes Filed: 02/10/2024 16:52 Note Text: Patient name: Enrrique Madera Are you being referred by a Center for [facility] Provider or Pain Management Provider at [facility]? No If answer is YES please schedule directly with surgeon, triage does not need to be completed. Is this a self-referral No If not, who is the Referring Provider Hany Olivares MD Is this a 2nd opinion from another spine surgeon? No Were you offered surgery? No MRI/CT/myelogram within 12 months? Yes If NO , please refer to medical spine or PCP to complete above imaging, triage does not need to be completed If YES,? please ask for the name/address of the facility where the MRI/CT/myelogram was completed: [address] [address] MRI/CT/myelogram viewable in Epic: No If not, please provide [phone] to fax in imaging reports for review. Also, please inform patient to hand carry imaging disc to appointment. XR (spine) within 12 months: Yes If YES,? please ask for the name/address of the facility where the XR was completed: [place] [id number] Dr. Purvis's patients: Have you had previous [...] the injections and/or physical therapy was completed - [facility] - [address] [place] [address] [facility] - [address] [place] [address] Have you tried any other kinds of [...] where the surgery was completed: 07/2023 - [facility] - [address] [place] [address] - scraping of arthritis AND repair 2 herinations Additional Comments [phone] NoteEntered by DVEI MUNOZ DO on January 24, 2024 07:33:43 EDT From: DEVI MUNOZ DO To: [facility] Sent: 01/24/2024 07:33:43 EDT Subject: Medication Management Submitted: Complete:buPROPion (BuPROPion (Eqv-Wellbutrin SR) 150 mg/12 hours oral tablet, extended release) Signed by DEVI MUNOZ DO 01/24/2024 07:33:00 EDT Submitted: Complete:FLUoxetine (FLUoxetine 20 mg oral capsule) Signed by DEVI MUNOZ DO 01/24/2024 07:33:00 EDT Approved with modifications: FLUoxetine (FLUoxetine HCl 20 MG Oral Capsule) Take 2 capsules by mouth once daily Qty: 180 cap(s) Days Supply: 90 Refills: 0 Substitutions Allowed Route To Pharmacy - [facility] Approved with modifications: buPROPion (buPROPion HCl ER (SR) 150 MG Oral Tablet Extended Release 12 Hour) Take 1 tablet by mouth twice daily Qty: 180 tab(s) Days Supply: 90 Refills: 0 Substitutions Allowed Route To Pharmacy - [facility] From: [place] [address] To: DEVI MUNOZ DO Sent: January 24, 2024 4:42:48 [...] Refills: 0 Substitutions Allowed Notes from Pharmacy: [facility]Rfvozbej04-05-7546 Note [id number]#1.00[facility]05-06-2024 NoteEntered by DEVI MUNOZ DO on December 19, 2023 07:28:36 EDT From: DEVI MUNOZ DO To: [place] [address] Sent: 12/19/2023 07:28:36 EDT Subject: Medication Management Submitted: Complete:sildenafil (sildenafil 20 mg oral tablet) Signed by DEVI MUNOZ DO 12/19/2023 07:28:00 EDT Approved with modifications: sildenafil (Sildenafil Citrate 20 MG Oral Tablet) TAKE 2 TO 3 TABLETS BY MOUTH ONCE DAILY NEEDED Qty: 90 tab(s) Days Supply: 30 Refills: 1 Substitutions Allowed Route To Pharmacy - [place] [address] From: [place] [address] To: DEVI MUNOZ DO Sent: December 19, 2023 4:41:45 AM CDT Subject: Medication Management Due: December 20, 2023 12:08:31 AM CDT On Hold Pending Signature Dispensed Drug: sildenafil (sildenafil 20 mg oral tablet), TAKE 2 TO 3 TABLETS BY MOUTH ONCE DAILY NEEDED Quantity: 90 tab(s) Days Supply: 30 Refills: 0 Substitutions Allowed Notes from Pharmacy: [id number] Note [facility] SURGERY Clinical Discharge Summary PERSON INFORMATION Name ENRRIQUE MADERA Age 58 Years 1965 Sex MALE Language Botswanan PCP DEVI MUNOZ DO Marital Status Med Service Pain Management Surgery Acct# Arrival 12/16/2023 06:24:10 Visit Reason LUMBOSACRAL SPONDYLOSIS Acuity LOS 013 17:20 Address: [address] [place] [address] Comment: PROVIDER INFORMATION VITALS INFORMATION Vital Sign [...] Oral (given by mouth) every day as needed.Refills: 0. Medication List: Medications to Continue That [...] Oral (given by mouth) every day as needed.Refills: 0. Medications to Continue That Have Not [...] Oral (given by mouth) every day as needed.Refills: 0. Medications to Continue That Have Not [...] Oral (given by mouth) every day as needed.Refills: 0. Comment: Lab and Radiology Results Laboratory [...] 04/26/2024 9:15 AM Confirmed DIAGNOSIS Comment: PHYS JUNG [facility]05-02-2024 Note [id number] The history of present illness has been reviewed. There are no changes document. [Electronically Signed on: 12/16/2023 06:56 EDT] JACINTO OLMOS MD [Verified on: 12/16/2023 06:56 EDT] JACINTO OLMOS MD [Transcribed on: 12/15/2023 12:08 EDT] [facility]04-06-2024 NoteEntered by DEVI MUNOZ DO on November 19, 2023 08:22:21 EDT From: DEVI MUNOZ DO To: [facility] Sent: 11/19/2023 08:22:21 EDT Subject: Medication Management Submitted: Complete:sildenafil (sildenafil 20 mg oral tablet) Signed by DEVI MUNOZ DO 11/19/2023 08:22:00 EDT Approved with modifications: sildenafil (Sildenafil Citrate 20 MG Oral Tablet) TAKE 2 TO 3 TABLETS BY MOUTH ONCE DAILY NEEDED Qty: 90 tab(s) Days Supply: 30 Refills: 0 Substitutions Allowed Route To Pharmacy - [facility] From: [place] [address] To: DEVI MUNOZ DO Sent: November 18, 2023 4:41:43 AM CDT Subject: Medication Management Due: November 19, 2023 12:14:39 AM CDT On Hold Pending Signature Dispensed Drug: sildenafil (sildenafil 20 mg oral tablet), TAKE 2 TO 3 TABLETS BY MOUTH ONCE DAILY NEEDED Quantity: 90 tab(s) Days Supply: 30 Refills: 0 Substitutions Allowed Notes from [facility]: [facility]Pbfejbjf22-14-2510 Note [id number]-2024 [facility] SURGERY Clinical Discharge Summary PERSON INFORMATION Name ENRRIQUE MADERA Age 57 Years 1965 Sex MALE Language Botswanan PCP DEVI MUNOZ DO Marital Status Med Service Pain Management Surgery Acct# Arrival 11/04/2023 10:51:46 Visit Reason LUMBOSACRAL SPONDYLOSIS Acuity LOS 007 02:07 Address: [address] [place] [address] Comment: PROVIDER INFORMATION VITALS INFORMATION Vital Sign [...] AM Confirmed AMB Follow Up [facility] 04/26/2024 9:00 AM 04/26/2024 9:15 AM Confirmed DIAGNOSIS Comment: PHYS DOC [facility]03-21-2024 Note [id number] The history of present illness has been reviewed. There are no changes document. [Electronically Signed on: 11/04/2023 11:31 EDT] JACINTO OLMOS MD [Verified on: 11/04/2023 11:31 EDT] JACINTO OLMOS MD [Transcribed on: 11/03/2023 13:43 EDT] [facility]03-12-2024 Note [id number]#1.00[facility]03-11-2024 [id number] 10-21-2023 [facility] SURGERY Clinical Discharge Summary PERSON INFORMATION Name ENRRIQUE MADERA Age 57 Years 1965 Sex MALE Language Botswanan PCP DEVI MUNOZ DO Marital Status Med Service Pain Management Surgery Acct# Arrival 10/21/2023 07:29:56 Visit Reason LUMBOSACRAL SPONDYLOSIS Acuity LOS 002 17:42 Address: [address] [place] [address] Comment: PROVIDER INFORMATION VITALS INFORMATION Vital Sign [...] AM Confirmed Secured Appoi (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[facility] HospitalIdshajsr93-85-1209 Note [id number] The history of present illness has been reviewed. There are no changes document. [Electronically Signed on: 10/21/2023 07:47 EST] JACINTO OLMOS MD [Verified on: 10/21/2023 07:47 EST] JACINTO OLMOS MD [Transcribed on: 10/20/2023 12:33 EST] [facility]02-20-2024 History of Present illness Narrative* Daniel Childress MD - 10/04/2023 12:20 PM EST Images from the original note were not included. [facility] [address] [place] [address], [address] [place] [address] * CHART NOTE ? 10/06/2023 Patient: Enrrique Madera 1965 [id number] Physician: Daniel Childress MD CHIEF COMPLAINT Follow up. HISTORY OF PRESENT ILLNESS 57 year old male presents to the office today as a post-op patient S/P L2-5 decompressive laminectomy with partial medial facetectomies on 07/25/23. Enrrique reports he continues to have numbness in theleft anterior thigh along with back pain that [...] and repeat his EMG. Denies loss of general house worker strength, saddle anesthesia, urinary or bowel dysfunction, [...] mg total) by mouth every morning., Disp: ,Rfl: FLUoxetine (PROzac) 10 mg capsule, Take 1 capsule (10 mg total) by mouth in the morning and 1 capsule (10 mg total) before bedtime. Indications: anxiousness associated with depression., Disp: , Rfl: gabapentin (NEURONTIN) 300 mg capsule, Take 1 capsule (300 mg total) by mouth 3 (three) times a dayIndications: neuropathic pain., Disp: , Rfl: omeprazole (PriLOSEC) [...] Right achilles: 2+ Left achilles: 2+ Right general house worker: 2+ Left general house worker: 2+ Right Gonsalez: absent Left Gonsalez: absent [...] reports he continues to have numbness in theleft anterior thigh along with back pain that [...] up in 4 weeks. Electronically Signed By: Daniel Childress MD This note was created with the assistance of a speech recognition program with the goal of generating a timely record of the patient encounter. Inadvertent computerized c d still operator errors related to syntax, spelling, homophones, and/or inaudibility may be present. Scribe Statement: Scribed for and in the presence of aDniel Childress MD by Ramon Miller. Provider Statement: I, Daniel Childress MD personally performed the services described in the documentation, as scribedby OS in my presence, and it is both accurate and complete. documented in this encounterHolden Memorial HospitalmParticle [id number] Instructions* Patient Instructions* RAN Stark - 10/04/2023 12:20 PM EST Patient was seen by Dr. Childress Patient will be off of work for 4 weeks. Patient will continue PT An order for EMG/NCS Both Legs Tramadol 50mg 1 tablet nightly 14 day supply, #30 1 refill. JA [facility] Note [id number]#[id number]01-23-[facility] History of Present illness Narrative* CHIVO Ta - 09/06/2023 3:00 PM EST Images from the original note were not included. [facility] [address] [place] [address], [address] [place] [address] * CHART NOTE ? 09/06/2023 Patient: Enrrique Madera 1965 [id number] Physician: Daniel Childress MD CHIEF COMPLAINT Post-op. HISTORY OF PRESENT ILLNESS 57 year old male presents to the office today as a post-op patient S/P L2-5 decompressive laminectomy with partial medial facetectomies on 07/25/23. Enrrique reports he continues to have numbness in theleft anterior thigh with new muscle atrophy. He reports that, while in the hospital for his surgery, he was reaching over the bed several times to get his backpack off the floor, and is not sure if he could have injured his back. Denies loss of general house worker strength, saddle anesthesia, urinary or bowel dysfunction, [...] mg total) by mouth every morning., Disp: ,Rfl: diclofenac (VOLTAREN) 75 mg EC tablet, Take [...] total) by mouth 3 (three) times a dayIndications: neuropathic pain., Disp: , Rfl: methocarbamoL (ROBAXIN) [...] Right achilles: 2+ Left achilles: 2+ Right general house worker: 2+ Left general house worker: 2+ Right Gonsalez: absent Left Gonsalez: absent Right ankle clonus: absent Left ankle clonus: absent Antalgic gait MRI / IMAGES None new IMPRESSION / PLAN 57 year old male presents to the office today as a post-op patient S/P L2-5 decompressive laminectomy with partial medial facetectomies on 07/25/23. Enrrique reports he continues to have numbness in theleft anterior thigh with new muscle atrophy. He [...] is status post lumbar laminectomy with partial medialfacetectomies with increased numbness and sensory deficit in [...] record of the patient encounter. Inadvertent computerized c d still operator errors related to syntax, spelling, homophones, and/or inaudibility may be present. CHIVO Ta 09/06/23 1642 documented in this encounterSalem City HospitalEverConnect [facility] [id number] Instructions* Patient Instructions* Chalino Yepez - 09/06/2023 3:00 PM EST MRI lumbar w/o Xrays lumbar flex/ext Physical therapy Pt to be off of work for an additional 4 more weeks RT documented in this encounterSelect [facility]23 Evaluation note* Encounter Date Diagnosis Assessment Notes Treatment Notes Treatment Clinical Notes Feb, Obstructive sleep apnea (ICD-10 - G47.33) Feb, Shift work sleep disorder (ICD-10 - G47.26) [facility] Other 01-25-2023 Evaluation note* Encounter Date Diagnosis Assessment Notes Treatment Notes Treatment Clinical Notes Aug, Obstructive sleep apnea (ICD-10 - G47.33) [facility] Other Evaluation + Plan note Future Appointments Appointment Date:05/07/2024 08:00:00 AM Scheduled Provider: Location:[facility] Appointment Type:Surgery FT [facility] Evaluation + Plan note Future Appointments Appointment Date:05/29/2024 01:00:00 PM Scheduled Provider:Wilmer RUBIN MD Location:[facility] Appointment Type:GS Post Op 15 [facility] evaluation + Plan note Future Appointments Appointment Date:06/12/2024 04:00:00 PM Scheduled Provider:Wilmer RUBIN MD Location:[facility] Appointment Type:GS Post Op 30 [facility] evaluation + Plan note Future Appointments Appointment Date:05/03/2024 02:30:00 PM Scheduled Provider: Location:[facility] Appointment Type:Surgical PAT FT Appointment Date:05/07/2024 08:00:00 AM Scheduled Provider: Location:[facility] Appointment Type:Surgery FT [facility] [place] Evaluation + Plan note Future Appointments Appointment Date:09/11/2024 10:20:00 AM Scheduled Provider:PURNIMA SARAH PA-C Location:[facility] Appointment Type:URO New Patient [facility] [place] evaluation noteNo assessment information available [facility] Work Phone: evaluation note* Diagnosis Status post lumbar laminectomy- Primary Lumbar radiculopathy Thoracic or lumbosacral neuritis or radiculitis, unspecified Weakness of left lower extremity Sensory deficit, left [facility] Diagnosis Status post lumbar laminectomy- Primary Weakness of left lower extremity [facility] Diagnosis Degeneration of lumbar or lumbosacral intervertebral disc- Primary S/P lumbar laminectomy Other postprocedural status [facility] Diagnosis Lumbar radiculopathy- Primary Thoracic or lumbosacral neuritis or radiculitis, unspecified Status post lumbar spine surgery for decompression of spinal cord [facility] Diagnosis Onset Date Resolution Status BRADY (obstructive sleep apnea) acute Shift work sleep disorder [facility] Work Phone: Evaluation note* Diagnosis Other osteoporosis with current pathological fracture, initial encounter- Primary Lumbar radiculopathy Thoracic or lumbosacral neuritis or radiculitis, unspecified Status post lumbar spine surgery for decompression of spinal cord [facility] Diagnosis Other osteoporosis with current pathological fracture, initial encounter- Primary Other osteoporosis with current pathological fracture, initial encounter [facility] Diagnosis Compression fracture of body of thoracic vertebra (HCC)- Primary Other fracture of unspecified thoracic vertebra, initial encounter for closed fracture (HCC) Compression fracture of C7 vertebra, sequela Other osteoporosis with current pathological fracture, initial encounter [facility] Diagnosis Other osteoporosis with current pathological fracture, initial encounter- Primary Status post lumbar spine surgery for decompression of spinal cord Lumbar radiculopathy Thoracic or lumbosacral neuritis or radiculitis, unspecified Back pain of thoracolumbar region Lumbago Other osteoporosis with current pathological fracture, initial encounter [facility] Diagnosis Other osteoporosis with current pathological fracture, initial encounter- Primary Lumbar radiculopathy Thoracic or lumbosacral neuritis or radiculitis, unspecified [facility] Diagnosis Compression fracture of body of thoracic vertebra (HCC) [facility] Diagnosis Other osteoporosis with current pathological fracture, initial encounter- Primary [facility] Diagnosis Back pain, unspecified back location, unspecified back pain laterality, unspecified chronicity- Primary [facility] Diagnosis Back pain, unspecified back location, unspecified back pain laterality, unspecified chronicity [facility]* Diagnosis Onset Date Resolution Status BRADY (obstructive sleep apnea) acute Shift work sleep disorder [place] Arthritis of lumbosacral spine acute Lumbar degenerative disc disease acute Other chronic pain acute Post laminectomy syndrome [place] Sacroiliitis acute [facility] Work Phone: Evaluation note* Diagnosis Other osteoporosis with current pathological fracture, initial encounter- Primary Lumbar radiculopathy Thoracic or lumbosacral neuritis or radiculitis, unspecified Status post lumbar spine surgery for decompression of spinal cord [facility]* Diagnosis Age related osteoporosis, unspecified pathological fracture presence- Primary [facility]* Diagnosis Lumbosacral radiculopathy- Primary Thoracic or lumbosacral neuritis or radiculitis, unspecified [facility] Diagnosis Status post lumbar spine surgery for decompression of spinal cord- Primary [facility] this [facility]* Diagnosis Lumbar radiculopathy- Primary Thoracic or lumbosacral neuritis or radiculitis, unspecified documented in this encounter [facility] general Narrative - Reported* Type Description Date Medical History chronic back pain Medical History depressive disorder Medical History [email or web address] Other Hospital course Narrative No data available for this section [facility] [place] [facility] Discharge instructions No data available for this section [facility] [place] Progress note No data available for this section [facility] [place] Reason for referral (narrative)* Consultation (Routine) - Authorized Specialty Diagnoses / Procedures Referred By Contortiz t Referred To Contact Rehabilitation Diagnoses Status post lumbar laminectomy Low back pain, non-specific 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, 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 [address] [place] [address] [facility] [address] [place] [address] Referral ID Status Reason Start Date Expiration Date Visits Requested Visits Authorized [id number] Authorized Specialty Services Required 09/06/2023 09/05/2024 1 1 * Diagnostic Imaging (Routine) - Pending Review Specialty Diagnoses / Procedures Referred By Rainer t Referred To Contact Radiology Diagnoses Status post lumbar laminectomy Low back pain, non-specific Procedures MR lumbar spine with and without contrast 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 APRN-CNP [address] [facility] [address] [place] [address] [facility] [address] [place] [address] Phone: [phone] Referral ID Status Reason Start Date Expiration Date V isits Requested Visits Authorized [id number] Pending Review 09/06/2023 09/05/2024 1 1 [facility] for referral (narrative)* Diagnostic Procedure Only (Routine) - Closed Specialty Diagnoses / Procedures Referred By Contac t Referred To Contact XR IMAGING Diagnoses Compression fracture of body of thoracic vertebra (HCC) Procedures DXA-AXIAL SKELETON Alison Briceno MD [address] [place] [place] [phone] Xr Imaging [place] [address] Referral ID Status Reason Start Date Expiration Date V isits Requested Visits Authorized [id number] Closed Auto-Generate d Referral 04/11/2024 05/11/2025 1 1 [facility] for visit Narrative* Diagnostic Procedure Only (Routine) - Closed Specialty Diagnoses / Procedures Referred By Contac t Referred To Contact XR IMAGING Diagnoses S/P lumbar laminectomy Degeneration of lumbar or lumbosacral intervertebral disc Procedures XR LUMBAR MOTION 4V AP/LAT/ FLEX/EXT RADEX SPINE LUMBOSACRAL MINIMUM 4 VIEWS Kian Mcdermott APRN.FIELD LOGISTICS COORDINATOR [address] Mail Code [address] [place] [phone] Xr Imaging [place] [facility] Referral ID Status Reason Start Date Expiration Date V isits Requested Visits Authorized [id number] Closed Auto-Generate d Referral 03/09/2024 04/08/2025 1 1 [facility]* Diagnostic Procedure Only (Routine) - Closed Specialty Diagnoses / Procedures Referred By Rainer rodriguez Referred To Contact XR IMAGING Diagnoses Compression fracture of body of thoracic vertebra (HCC) Procedures DXA-AXIAL SKELETON Alison Briceno MD [address] [place] [phone] Xr Imaging [facility] Referral ID Status Reason Start Date Expiration Date V isits Requested Visits Authorized [id number] Closed Auto-Generate d Referral 04/11/2024 05/11/2025 1 1 [facility] Summary Purpose Family History No Family History Records FoundNo Family History Records FoundNo Family History Records FoundNo Family History Records FoundNo Family History Records FoundNo Family History Records FoundNo Family History Records Found No data available for this section No Family History Records FoundNo Family History Records FoundNo Family History Records Found No data available for this section No Family History Records Found No data available for this section No Family History Records FoundNo Family History Records Found No data available for this section No data available for this section No data available for this section No Family History Records Found No data available for this section No Family History Records FoundNo Family History [...] Comments Full Code Order Discussed With: Patient Advance Directive Response Recorded Date/ Time Advance Directives No June 13, 2024 9:05am Chief Complaint and Reason for Visit Chief Complaint G47.30 Chief Complaint Obstructive sleep ap laura Chief Complaint BRADY/ ANNUAL Reason for Visit BRADY (obstructive sle ep apnea) Shift work sleep disorder Chief Complaint BRADY/ ANNUAL post laminectomy syndrome Reason for Visit BRADY (obstructive sle ep apnea) Shift work sleep disorder Chief Complaint BRADY/ ANNUAL post laminectomy syndrome REFF BY CONSUELO MADERA Reason for Visit BRADY (obstructive sle ep apnea) Shift work sleep disorder Arthritis of lumbosacral spine Lumbar degenerative disc disease Other chronic pain Post laminectomy syndrome Sacroiliitis Chief Complaint Admit Date post laminectomy syndrome May 15 9:58am REFF BY CONSUELO MADERA June 11, 2024 9:00am Amb Documentation June 20, 2024 9 :16am caudal epidural steroid injection Novemb er 2023 1:05pm Reason for Visit Admit Date Arthritis of lumbosacral spine May 162023 9:00am Lumbar degenerative disc disease June 11, 2024 9:00am Other chronic pain June 11, 2024 9 :00am Post laminectomy syndrome June 11, 2024 9:00am Sacroiliitis June 11, 2024 9 :00am Chief Complaint Admit Date post laminectomy syndrome May 15 9:58am REFF BY CONSUELO MADERA June 11, 2024 9:00am Amb Documentation June 20, 2024 9 :16am caudal epidural steroid injection Novemb er 2023 1:05pm f/u after caudal July 03, 2024 9:19am Reason for Visit Admit Date Arthritis of lumbosacral spine May 162023 9:00am Lumbar degenerative disc disease June 11, 2024 9:00am Other chronic pain June 11, 2024 9 :00am Post laminectomy syndrome June 11, 2024 9:00am Sacroiliitis June 11, 2024 9 :00am Arthritis of lumbosacral spine July 03, 2024 9:19am Other chronic pain July 03, 2024 9:19am Post laminectomy syndrome July 03, 2024 9:19am Reason for Referral Specialty Diagnoses / Procedures Referred By Contac t Referred To Contact Radiology Diagnoses Back pain, unspecified back location, unspecified back pain laterality, unspecified chronicity Procedures XRAY HEAD/SPINE IMAGE IMPORT(DELFINA) DOWNLOAD POWERSHARE IMAGES TO Duc Paredes MD [address] [place] [address] [facility] [address] [place] [address] Referral ID Status Reason Start Date Expiration Date Visits Re quested Visits Authorized [id number] Closed 05/17/2024 05/17/2025 1 1 Specialty Diagnoses / Procedures Referred By Contac t Referred To Contact [facility] Diagnoses Other osteoporosis with current pathological fracture, initial encounter Status post lumbar spine surgery for decompression of spinal cord Lumbar radiculopathy Back pain of thoracolumbar region Procedures CONSULT TO PHYSICAL THERAPY PHYSICAL THERAPY EVALUATION HIGH COMPLEX 45 MINS Kian Mcdermott, HANDLE MACHINE OPERATOR.FIELD LOGISTICS COORDINATOR [address] Mail Code [address] [place] [address] [facility] [place] [place] [address] Referral ID Status Reason Start Date Expiration Date Visits Requested Visits Authorized [id number] Pending Review Auto-Generat ed Referral 04/17/2024 04/17/2025 1 1 Specialty Diagnoses / Procedures Referred By Contac t Referred To Contact MR IMAGING Diagnoses Other fracture of unspecified thoracic vertebra, initial encounter for closed fracture (HCC) Procedures MRI THORACIC SPINE WO IVCON MRI SPINAL CANAL THORACIC W/O CONTRAST Alison Robbins MD [address] [place] [phone] Mr Imaging [place] [address] Referral ID Status Reason Start Date Expiration Date Visits Requested Visits Authorized [id number] New Request Auto-Generat ed Referral 04/11/2024 05/11/2025 1 1 Specialty Diagnoses / Procedures Referred By Contac t Referred To Contact MR IMAGING Diagnoses Compression fracture of C7 vertebra, sequela Procedures MRI CERVICAL SPINE WO IVCON MRI SPINAL CANAL CERVICAL W/O CONTRAST Alison Robbins MD [address] [place] [address] Mr Imaging [place] [address] Referral ID Status Reason Start Date Expiration Date Visits Requested Visits Authorized [id number] New Request Auto-Generat ed Referral 04/11/2024 05/11/2025 1 1 Specialty Diagnoses / Procedures Referred By Contac t Referred To Contact XR IMAGING Diagnoses Compression fracture of body of thoracic vertebra (HCC) Procedures DXA-AXIAL SKELETON Alison Briceno MD [address] [place] [address] Xr Imaging [place] [address] Referral ID Status Reason Start Date Expiration Date Visits Requested Visits Authorized [id number] New Request Auto-Generat ed Referral 04/11/2024 05/11/2025 1 1 Specialty Diagnoses / Procedures Referred By Contac t Referred To Contact Diagnoses Other osteoporosis with current pathological fracture, initial encounter Procedures CONSULT TO ENDO METABOLIC BONE OFFICE/OUTPATIENT NEW HIGH MDM 60 MINUTES Kian Mcdermott APRN.FIELD LOGISTICS COORDINATOR [address] [facility], Mail Code [address] [place] [address] Referral ID Status Reason Start Date Expiration Date Visits Requested Visits Authorized [id number] Authorized PCP Requested Referral 03/26/2024 03/26/2025 1 1 Specialty Diagnoses / Procedures Referred By Contac t Referred To Contact Diagnoses Other osteoporosis with current pathological fracture, initial encounter Procedures CONSULT TO ENDO METABOLIC BONE OFFICE/OUTPATIENT NEW HIGH MDM 60 MINUTES Violeta Black MD [address] [place] [address] Referral ID Status Reason Start Date Expiration Date Visits Requested Visits Authorized [id number] Authorized PCP Requested Referral 03/26/2024 03/26/2025 1 1 Specialty Diagnoses / Procedures Referred By Contac t Referred To Contact Diagnoses Status post lumbar laminectomy Weakness of left lower extremity Procedures EMG Daniel Childress MD [address] [facility] [address] [place] [id number] Referral ID Status Reason Start Date Expiration Date V isits Requested Visits Authorized [id number] Pending Review 10/04/2023 10/03/2024 1 1 Specialty Diagnoses / Procedures Referred By Contac t Referred To Contact Rehabilitation Diagnoses Status post lumbar laminectomy Daniel Childress MD [address] [facility] [facility] [address] [place] [address] [facility] [address] [place] [address] Referral ID Status Reason Start Date Expiration Date Visits Requested Visits Authorized [id number] Authorized Specialty Services Required 10/04/2023 10/03/2024 1 [...] section and content) DATE CREATED AUTHOR 02/01/2018 [facility] DATE CREATED AUTHOR AUTHOR'S ORGANIZ ATION 08/24/2021 [facility] DATE CREATED AUTHOR AUTHOR'S ORGANIZ ATION 09/28/2023 [facility] DATE CREATED AUTHOR AUTHOR'S ORGANIZ ATION 10/11/2023 [facility] DATE CREATED AUTHOR AUTHOR'S ORGANIZ ATION 04/12/2024 [facility] DATE CREATED AUTHOR AUTHOR'S ORGANIZ ATION 04/21/2024 [facility] EPIC DATE CREATED AUTHOR AUTHOR'S ORGANIZ ATION 05/01/2024 [facility] DATE CREATED AUTHOR AUTHOR'S ORGANIZ ATION 05/06/2024 [facility] DATE CREATED AUTHOR AUTHOR'S ORGANIZ ATION 05/18/2024 [facility] DATE CREATED AUTHOR AUTHOR'S ORGANIZ ATION 05/23/2024 [facility] DATE CREATED AUTHOR AUTHOR'S ORGANIZ ATION 05/23/2024 [facility] [employer] [facility] DATE CREATED AUTHOR AUTHOR'S ORGANIZ ATION 08/26/2024 [facility] DATE CREATED AUTHOR AUTHOR'S ORGANIZ ATION 09/02/2024 [facility] DATE CREATED AUTHOR AUTHOR'S ORGANIZ ATION 09/11/2024 [facility] De[facility] Care Teams (unrecognized sec tion and content) Team Status: Inactive Member Role Status Dates Carole Jensen MD Attending Provider Active Nakia Simeon MD Primary Care Provider Active Team Status: Active Member Role Status Dates Nakia Simeon MD Primary Care Provider Active Team Status: Inactive Member Role Status Dates Nakia Simeon MD Primary Care Provider Active Melissa Galan APRN [facility] Attending Provider Active [employer] Former Relationship Specialty Start Date End Date Devi Munoz DO [address] [place] [address] PCP - General Family Medicine 07/25/23 [employer] Former Relationship Specialty Start Date End Date Devi Munoz DO [address] [place] [address] PCP - General Family Medicine 07/25/23 [employer] Former Relationship Specialty Start Date End Date Hany Olivares MD [address] [place] [phone] PCP - General Family Medicine 02/07/24 [employer] Former Relationship Specialty Start Date End Date Hany Olivares MD [address] [place] [address] PCP - General Family Medicine 02/07/24 [employer] Former Relationship Specialty Start Date End Date Hany Olivares MD [address] [place] [address] PCP - General Family Medicine 02/07/24 Team Status: Inactive Member Role Status Dates Nakia Simeon MD Primary Care Provider Active Start: March 16, 2024 End: March 16, 2024 Melissa Galan APRN [facility]- Attending Provider Active Start: March 16, 2024 End: March 16, 2024 [employer] Former Relationship Specialty Start Date End Date Hany Olivares MD [address] [place] [address] PCP - General Family Medicine 02/07/24 [employer] Former Relationship Specialty Start Date End Date Hany Olivares MD [address] [place] [address] PCP - General Family Medicine 02/07/24 [employer] Former Relationship Specialty Start Date End Date Hany Olivares MD [address] [place] [address] PCP - General Family Medicine 02/07/24 [employer] Former Relationship Specialty Start Date End Date Hany Olivares MD [address] [place] [address] PCP - General Family Medicine 02/07/24 [employer] Former Relationship Specialty Start Date End Date Hany Olivares MD [address] [facility] [place] [address] PCP - General Family Medicine 02/07/24 [employer] Former Relationship Specialty Start Date End Date Hany Olivares MD [address] [place] [address] PCP - General Family Medicine 02/07/24 [employer] Former Relationship Specialty Start Date End Date Hany Olivares MD [address] [place] [address] PCP - General Family Medicine 02/07/24 [employer] Former Relationship Specialty Start Date End Date Hany Olivares MD [address] [facility] [place] [address] PCP - General Family Medicine 02/07/24 [employer] Former Relationship Specialty Start Date End Date Hany Olivares MD [address] [facility] [place] [address] PCP - General Family Medicine 02/07/24 [facility] Former Relationship Specialty Start Date End Date Hany Olivares MD [address] [facility] [place] [address] PCP - General Family Medicine 02/07/24 [employer] Former Relationship Specialty Start Date End Date Hany Olivares MD [address] [place] [address] PCP - General Family Medicine 02/07/24 [employer] Former Relationship Specialty Start Date End Date Hany Olivares MD [address] [place] [address] PCP - General Family Medicine 02/07/24 Team Status: Active Member Role Status Dates Devi Munoz DO Primary Care Provider Active Team Status: Inactive Member Role Status Dates aNila Paulino MD Attending Provider Acti ve Start: May 15, 2024 End: May 15, 2024 Devi Munoz DO Primary Care Provider Active Start: May 15, 2024 End: May 15, 2024 [employer] Former Relationship Specialty Start Date End Date Hany Olivares MD [address] [place] [address] PCP - General Family Medicine 02/07/24 Team Status: Inactive Member Role Status Dates Devi Munoz DO Primary Care Provider Active Start: June 11, 2024 End: June 11, 2024 Randy Denton MD Attending Provider Active Sta rt: June 11, 2024 End: June 11, 2024 Consuelo Madera , [employer] Referring Provider Active Start: June 11, 2024 End: June 11, 2024 [employer] Former Relationship Specialty Start Date End Date Hany Olivares MD [facility] [place] [address] PCP - General Family Medicine 02/07/24 Team Status: Active Member Role Status Dates Devi Munoz DO Primary Care Provider Active Start: June 20, 2024 Lisette Rico LPN Attending Provider Active S tart: June 20, 2024 Team Status: Inactive Member Role Status Dates Devi Munoz DO Primary Care Provider Active Start: June 26, 2024 End: June 26, 2024 Randy Denton MD Attending Provider Active Sta rt: June 26, 2024 End: June 26, 2024 Team Status: Active Member Role Status Dates Devi Munoz DO Primary Care Provider Active Start: June 26, 2024 Randy Denton MD Attending Provider Active Sta rt: June 26, 2024 Team Status: Inactive Member Role Status Dates Devi Munoz DO Primary Care Provider Active Start: July 03, 2024 End: July 03, 2024 Randy Denton MD Attending Provider Active Sta rt: July 03, 2024 End: July 03, 2024 [employer] Former Relationship Specialty Start Date End Date Nakia Simeon MD [address] [place] [id number] PCP - General Family Medicine 01/26/23 [employer] Former Relationship Specialty Start Date End Date Nakia Simeon MD [address] [place] [address] PCP - General Family Medicine 01/26/23 [facility] Former Relationship Specialty Start Date End Date Hany Olivares MD [address] [place] [address] PCP - General Family Medicine 02/07/24 Goals (unrecognized section and content) Goals may be documented in a n alternate sectionNo InformationGoals may be documented in an alternate sectionNo InformationNot on filedocumented as of this encounterNot on filedocumented as of this encounterGoals may be documented in an alternate section No data available for this section No data available for this sectionGoals may be documented in an alternate section No data available for this section No data available for this sectionGoals may be documented in an alternate section No data available for this sectionGoals may be documented in an alternate sectionGoals may be documented in an alternate section No data available for this section No data available for this section REASON FOR VISIT (unrecogniz ed section and content) Reason Comments Follow-up P/o lumbar lami Reason Comments Follow-up EPReview MRI Resul ts Reason Comments New Patient Reason Comments Patient Question Reason Comments New Patient Reason Comments New Patient Reason Comments Established Patient Follow Up Reason Comments F/U on Bone Density Results Reason Comments results Reason Comments Established Patient Reason Comments Specialty Pharmacy Reason Comments Insurance Authorization Reason Comments Forms/letter Specialty Diagnoses / Procedures Referred By Contac t Referred To Contact Radiology Diagnoses Back pain, unspecified back location, unspecified back pain laterality, unspecified chronicity Procedures MR NEURO IMAGE IMPORT(DELFINA) Duc Holcomb MD [address] [place] [address] [facility] DIAGNOSTIC RADIOLOGY [address] [place] [address] Referral ID Status Reason Start Date Expiration Date Visits Re quested Visits Authorized [id number] Closed 05/17/2024 05/17/2025 1 1 Reason Comments Follow Up Reason Comments Follow Up Patient here for a 1 month follow-up, post-blood work. Source Comments (unrecognize d section and content) In the event this informatio n is protected by the Federal Confidentiality of Alcohol and Drug Abuse Patient Records regulations: The Federal rules restrict any use of the information to criminally investigate or prosecute any alcohol or drug abuse patient.[facility] HealthIn the event this information is protected by the Federal Confidentiality of Alcohol and Drug Abuse Patient Records regulations: The Federal rules restrict any use of the information to criminally investigate or prosecute any alcohol or drug abuse patient.[facility] HealthIn the event this information is protected by the Federal Confidentiality of Alcohol and Drug Abuse Patient Records regulations: The Federal rules restrict any use of the information to criminally investigate or prosecute any alcohol or drug abuse patient.[facility] HealthIn the event this information is protected by the Federal Confidentiality of Alcohol and Drug Abuse Patient Records regulations: The Federal rules restrict any use of the information to criminally investigate or prosecute any alcohol or drug abuse patient.[facility] HealthIn the event this information is protected by the Federal Confidentiality of Alcohol and Drug Abuse Patient Records regulations: The Federal rules restrict any use of the information to criminally investigate or prosecute any alcohol or drug abuse patient.[facility] HealthIn the event this information is protected by the Federal Confidentiality of Alcohol and Drug Abuse Patient Records regulations: The Federal rules restrict any use of the information to criminally investigate or prosecute any alcohol or drug abuse patient.[facility] HealthIn the event this information is protected by the Federal Confidentiality of Alcohol and Drug Abuse Patient Records regulations: The Federal rules restrict any use of the information to criminally investigate or prosecute any alcohol or drug abuse patient.[facility] HealthIn the event this information is protected by the Federal Confidentiality of Alcohol and Drug Abuse Patient Records regulations: The Federal rules restrict any use of the information to criminally investigate or prosecute any alcohol or drug abuse patient.[facility] HealthIn the event this information is protected by the Federal Confidentiality of Alcohol and Drug Abuse Patient Records regulations: The Federal rules restrict any use of the information to criminally investigate or prosecute any alcohol or drug abuse patient.[facility] HealthIn the event this information is protected by the Federal Confidentiality of Alcohol and Drug Abuse Patient Records regulations: The Federal rules restrict any use of the information to criminally investigate or prosecute any alcohol or drug abuse patient.[facility] HealthIn the event this information is protected by the Federal Confidentiality of Alcohol and Drug Abuse Patient Records regulations: The Federal rules restrict any use of the information to criminally investigate or prosecute any alcohol or drug abuse patient.[facility] HealthIn the event this information is protected by the Federal Confidentiality of Alcohol and Drug Abuse Patient Records regulations: The Federal rules restrict any use of the information to criminally investigate or prosecute any alcohol or drug abuse patient.[facility] HealthIn the event this information is protected by the Federal Confidentiality of Alcohol and Drug Abuse Patient Records regulations: The Federal rules restrict any use of the information to criminally investigate or prosecute any alcohol or drug abuse patient.[facility] HealthIn the event this information is protected by the Federal Confidentiality of Alcohol and Drug Abuse Patient Records regulations: The Federal rules restrict any use of the information to criminally investigate or prosecute any alcohol or drug abuse patient.[facility] HealthIn the event this information is protected by the Federal Confidentiality of Alcohol and Drug Abuse Patient Records regulations: The Federal rules restrict any use of the information to criminally investigate or prosecute any alcohol or drug abuse patient.[facility] HealthIn the event this information is protected by the Federal Confidentiality of Alcohol and Drug Abuse Patient Records regulations: The Federal rules restrict any use of the information to criminally investigate or prosecute any alcohol or drug abuse patient.[facility] HealthIn the event this information is protected by the Federal Confidentiality of Alcohol and Drug Abuse Patient Records regulations: The Federal rules restrict any use of the information to criminally investigate or prosecute any alcohol or drug abuse patient.[facility] HealthIn the event this information is protected by the Federal Confidentiality of Alcohol and Drug Abuse Patient Records regulations: The Federal rules restrict any use of the information to criminally investigate or prosecute any alcohol or drug abuse patient.[facility] HealthIn the event this information is protected by the Federal Confidentiality of Alcohol and Drug Abuse Patient Records regulations: The Federal rules restrict any use of the information to criminally investigate or prosecute any alcohol or drug abuse patient.[facility] HealthIn the event this information is protected by the Federal Confidentiality of Alcohol and Drug Abuse Patient Records regulations: The Federal rules restrict any use of the information to criminally investigate or prosecute any alcohol or drug abuse patient.[facility] HealthIn the event this information is protected by the Federal Confidentiality of Alcohol and Drug Abuse Patient Records regulations: The Federal rules restrict any use of the information to criminally investigate or prosecute any alcohol or drug abuse patient.[facility] HealthIn the event this information is protected by the Federal Confidentiality of Alcohol and Drug Abuse Patient Records regulations: The Federal rules restrict any use of the information to criminally investigate or prosecute any alcohol or drug abuse patient.[facility] HealthIn the event this information is protected by the Federal Confidentiality of Alcohol and Drug Abuse Patient Records regulations: The Federal rules restrict any use of the information to criminally investigate or prosecute any alcohol or drug abuse patient.[facility] HealthIn the event this information is protected by the Federal Confidentiality of Alcohol and Drug Abuse Patient Records regulations: The Federal rules restrict any use of the information to criminally investigate or prosecute any alcohol or drug abuse patient.[facility] HealthIn the event this information is protected by the Federal Confidentiality of Alcohol and Drug Abuse Patient Records regulations: The Federal rules restrict any use of the information to criminally investigate or prosecute any alcohol or drug abuse patient.[facility] HealthIn the event this information is protected by the Federal Confidentiality of Alcohol and Drug Abuse Patient Records regulations: The Federal rules restrict any use of the information to criminally investigate or prosecute any alcohol or drug abuse patient.[facility] HealthIn the event this information is protected by the Federal Confidentiality of Alcohol and Drug Abuse Patient Records regulations: The Federal rules restrict any use of the information to criminally investigate or prosecute any alcohol or drug abuse patient.[facility] FOR RECORDS PERTAINING TO PATIENTS WHO ARE [...] BE BASED ON THE PRIMARY CLINICAL RECORDS. [facility]. provides no warranty or guarantee of the accuracy or completeness of information in this document.
== END 2024-09-18 10:52 | disposition home or self-care (01) ==
LOC: PST 10:51
PROVIDERS: PCP Family Medicine; Visit Provider Surgery
DX: Z01.818 Encounter for other preprocedural examination (principal); K21.9 Gastro-esophageal reflux disease without esophagitis; Z12.11 Encounter for screening for malignant neoplasm of colon

== ENCOUNTER 2024-10-31 06:26 | Day surgery (SDC) | payer OTHER, SELFPAY ==
--- NOTE | 2024-10-31 | OP_ITS ---
OPERATION DATE: 10/31/2024 PREOPERATIVE DIAGNOSIS: Refractory gastroesophageal reflux disease, colorectal screening. POSTOPERATIVE DIAGNOSIS: Antral gastritis mild, as well as normal colonoscopy. PROCEDURE: EGD with antral biopsy, colonoscopy to cecum. SURGEON: Jourdan Kim M.D. ANESTHESIA: Monitored anesthesia care. ESTIMATED BLOOD LOSS: Less than 1 mL. INDICATIONS AND CONSENT: Patient is a 58-year-old male presents for evaluation of refractory GERD, despite medical therapy, as well as colorectal screening. Indications, risks, benefits, alternatives of proceeding with EGD and colonoscopy were explained extensively to the patient, including the risks of bleeding, aspiration, esophageal/gastric/duodenal or colonic perforation or anesthetic complications. All of his questions were answered. Informed consent was obtained. PROCEDURE: Patient brought to the operating room, placed in the left lateral decubitus position. Monitored anesthesia care was provided. Bite block was placed in the patient?s mouth. Scope was inserted into the oropharynx. Under direct visualization, it was advanced into the esophagus, past the cricopharyngeus, down to the stomach. The stomach was insufflated with air. The pylorus was traversed down to the descending portion of the duodenum. There was no evidence of duodenitis or ulceration. There was no scarring within the pyloric channel. Scope was pulled back into the stomach and retroflexed. There was no hiatal hernia. Within the antrum, there was noted to be some linear antral gastritis with erythema and superficial erosions, primarily within the posterior wall and greater curvature. Biopsies were obtained with cold biopsy forceps x2 with good hemostasis. The GE junction was noted at approximately 41 cm. There was no distal esophagitis or Ray?s changes. Remainder of the esophagus was unremarkable. The scope was then withdrawn. Patient tolerated procedure well, was positioned for colonoscopy. Rectal exam was performed, which showed no masses or blood. The scope was then inserted into the anal canal. Under direct visualization, it was advanced. With the aid of abdominal compression, it was advanced to the cecum where cecal markings were clearly identified. There was noted to be a good prep. Upon withdrawal of the scope, mucosal surfaces were carefully examined. There were no mass lesions or polyps. No inflammatory changes or ulcerations. No significant diverticulosis. The scope was retroflexed in the anal canal. There was no significant hemorrhoidal disease. The scope was then withdrawn. The patient tolerated procedure well, was sent to recovery room in good condition. f/u screening colonoscopy in 10 years. CC: Hany Hathaway M.D. [facility]
--- OUTSIDE RECORDS SUMMARY | 2024-10-31 06:29 | XMS_ITS | CCD ---
Author Organization [facility] Care Team Providers Care Collet Gluer Name Role Phone NAKIA SIMEON Unavailable Unavailable DANIEL WILSON Unavailable UnavailDR KAYLIE Ratliff Primary Care Unavailable CONSUELO SINGH Attending Unavailable CONSUELO SINGH Consulting Unavailable CONSUELO SINGH Admitting Unavailable MD Carole Jensen Attending Provider MD Nakia Simeon Primary Care Provider Carole Jensen Unavailable MD Nakia Simeon Primary Care Provider [phone] ZACHARY Galan Attending Provider Melissa Galan Unavailable WENDY PADRON Referring Unavailable HOUSEDEVI Primary Care Unavailable WENDY PADRON Referring Unavailable DEVI MUNOZ Primary Care Unavailable NAKIA SIMEON Referring Unavailable TAMMY, DEVI Pereyra Primary Care Unavailable WENDY PADRON Attending Unavailable DANIEL CHILDRESS Attending Unavailable TAMMY, DEVI Pereyra Referring Unavailable HOUSE, DEVI Pereyra Primary Care Unavailable Elise QUISPE, Hany Mcfarlane Primary Care Provider [phone] Amarilis QUISPE, Jacinto Dai Attending Shaila Gutierres APRN-LIVESTOCK CARETAKER, Ortiz Werner Attending Maxx Olmos MD, Jacinto Dai Attending Shaila WALDRON, Ortiz Werner Attending Maxx Olmos MD, Jacinto Dai Attending Shaila Olmos MD, Jacinto Dai Attending Shaila Olmos MD, Jacinto Dai Attending Shaila WALDRON, Ortiz Werner Attending Maxx Olmos MD, Jacinto Dai Attending Shaila Gutierres APRN-MIRANDA, Ortiz Werner Attending U CAROLE Cadet Attending Unavailable LAKSHMIPATHY, NARENDRANATH Referring Unava ilable GABRIELLE LEE Attending Unavailable Hany Olivares Primary Care Physician NILL, Wilmer R Attending Unavailable NILL, Wilmer R Referring Unavailable NILL, Wilmer R Admitting Unavailable NILL, Wilmer R Attending Unavailable NILL, Wilmer R Attending Unavailable Hany Olivares Referring Unavailable NILL, Wilmer Merlos Attending Unavailable MD Naila Ruiz Attending Provider Unavailable DO Devi Munoz Primary Care Provider [phone] NILL, Wilmer R Admitting Unavailable NILL, Wilmer R Referring Unavailable NILL, Wilmer R Attending Unavailable NILL, Wilmer R Admitting Unavailable NILL, Wilmer R Referring Unavailable NILL, Wilmer R Attending Unavailable NILL, Wilmer R Attending Unavailable LakshmipathNaila santos Attending Unava ilable LakshmipathyAngel Luisendsilvio Admitting Unava ilable Devi Munoz Primary Care Unavailable PROVIDER, UNKNOWN Attending Unavailable PROVIDER, UNKNOWN Admitting Unavailable DUC HOLCOMB Referring Unavailable Unavailable Primary Care Provider UnavailNaila Qiu MD Attending Provider Unavailable Devi Munoz DO Primary Care Provider [phone] Nakia Simeon MD Primary Care Provider Devi Munoz DO Primary Care Provider Hany Olivares Referring Unavailable NILL, Wilmer R Attending Unavailable NILL, Wilmer R Attending Unavailable NILL, Wilmer R Attending Unavailable PURNIMA SARAH Attending Unavailable Hany Olivares Referring Unavailable CIELO, TACO K Admitting Unavailable CIELO, TACO K Attending Unavailable HANY OLIVARES M Primary Care Unavailable PACENTA, KIAN Referring Unavailable HANY OLIVARES M Primary Care Unavailable VIOLETA BLACK Attending Unavailable PACENTA, KIAN Referring Unavailable HANY OLIVARES M Primary Care Unavailable AJITIACLAUSO T Referring Unavailable HANY OLIVARES M Primary Care Unavailable CIELO, TACO K Admitting Unavailable CIELO, TACO K Attending Unavailable HANY OLIVARES M Primary Care Unavailable Ortiz Gutierres Admitting Unavailable DEVI MUNOZ Primary Care Unavailable Ortiz Gutierres Attending Unavailable HANY OLIVARES Primary Care Unavailable London, Ortiz M Admitting Unavailable London, Ortiz M Attending Unavailable HOUSE, DEVI P Primary Care Unavailable London, Ortiz M Attending Unavailable London, Ortiz M Admitting Unavailable HOUSE, DEVI P [...] Unavailable HOUSE, DO DEVI P Attending Unavailable London, Ortiz M Attending Unavailable London, Ortiz M Admitting Unavailable HOUSE, DEVI P Primary Care Unavailable HOY, HANY Primary Care Unavailable HOUSE, DEVI P Primary Care Unavailable HOUSE, DO DEVI P Admitting Unavailable HOUSE, DO DEVI P Attending Unavailable London, Ortiz M Admitting Unavailable HOUSE, DEVI P Primary Care Unavailable London, Ortiz M Attending Unavailable HOUSE, DEVI P Primary Care Unavailable KINDL, JACINTO F Attending Unavailable KINDL, JACINTO F Admitting Unavailable HSIA, ALISON T Referring Unavailable HOY, HANY M Primary Care Unavailable HSIA, ALISON T Attending Unavailable HOY, HANY M Primary Care Unavailable PACENTA, KIAN Attending Unavailable HOY, HANY M Primary Care Unavailable HOY, HANY M Primary Care Unavailable WILMER ASHLEY Attending Unavailable HOY, HANY M Primary Care Unavailable HSIA, ALISON T Referring Unavailable HOY, HANY M Primary Care Unavailable HSIA, ALISON T Attending Unavailable HOY, HANY M Primary Care Unavailable PACENTA, KIAN Attending Unavailable PACENTA, KIAN Referring Unavailable HOY, HANY M Primary Care Unavailable HOY, HANY M Primary Care Unavailable KISHORE MCMANUS Admitting Unavailable JACKIE KEITA Attending Unavailable HSIA, AILSON T Attending Unavailable HOY, HANY M Primary Care Unavailable VIOLETA BLACK Attending Unavailable HOY, HANY M Primary Care Unavailable HOY, HANY M Primary Care Unavailable Allergies Allergy Classification Reported Allergen(s) Allergy Type Date of Onset Reaction(s) Facility (4 sources) OTHER; Translations: [OTHER] Propensity to adverse reactions (disorder) 3 Other (See Comments) [facility] Repository (20 sources) oxyCODONE; Translations: [OXYCODONE] Drug Allergy 3 Unknown, Other: See Comments [facility] Work Phone: (3 sources) No Known Medication Allergies; Translations: [No Known Medication Allergies] Propensity to adverse reactions (disorder) [facility] Repository (1 source) narcotic analgesics; Translations: [narcotic analgesics] Propensity to adverse reactions to drug (disorder) [facility] Repository Medications Current Medications Medication Drug [...] to exceed 4000 mg acetaminophen per day, [facility], 181, cm, 05/03/24 14:49:00 EDT, [...] apply 1 dose transde rmal route every hour buprenorphine (BUTRANS) 15 mcg/hour patch Apply 1 Patch as directed one time a week. Taking 5 MCG. 02/24/2024 Active Start: 02-24-2024 apply 1 dose transde rmal [...] two times a day. 08/02/2023 Active Pepcid (2 sources) Histamine-2 Receptor Antagonist Start: 08-23-2024 Pepcid Refills(s) [...] day Active gabapentin 800 mg oral tablet (16 sources) Anti-epileptic Agent Start: 08-23-2024 take 1 tablet by mouth four times daily gabapentin 800 mg Tab 800 mg = 1 tab(s), Oral, QID, Refills(s) 0 Start Date: 08/23/24 Status: Ordered Start: 06-11-2024 take 1 capsule by mo [facility] four times daily Gabapentin 300 mg capsule Active 300 MG PO Four times daily June 10, 2024 11:00pm Start: 04-25-2024 take 1 tablet by [facility] three times daily gabapentin 600 mg Tab 600 mg = 1 tab(s), Oral, TID, Refills(s) 0 Start Date: 04/25/24 Status: Ordered Start: 02-14-2024 End: 03-15-2024 gabapentin (NEURONTIN) 600 m g tablet 600 mg. 0 02/14/2024 03/15/2024 Active Start: 05-20-2023 take 1 capsule by [facility] three times daily gabapentin (NEURONTIN) 300 mg capsule Indications: neuropathic pain Take 1 capsule (300 mg total) by mouth 3 (three) times a day Indications: neuropathic pain. 0 05/20/2023 Active hydroCHLOROthiazide 12.5 mg oral tablet (2 sources) Thiazide Diuretic Start: 08-23-2024 take 1 tablet [...] take 1 tablet by mouth once daily in the evening lisinopril (ZESTRIL) 20 mg tablet Take 1 tablet by mouth once daily. 30 tablet 03/23/2024 5:47 PM EDT 03/24/2024 Active magnesium citrate (4 sources) Start: 05-07-2024 magnesium citr ate Refill(s) 0 Start Date: 05/07/24 Status: Ordered methocarbamol 500 mg oral tablet (17 sources) Muscle Relaxant Start: 04-27-2024 take 500 [...] before bedtime. 28 tablet 0 07/27/2023 Active mupirocin 0.02 mg/mg topical ointment (3 sources) RNA Synthetase Inhibitor Antibacterial Start: 10-18-2024 End: 11-15-2024 mupirocin (BACTROBAN) 2 % ointment Indications: Carrier of methicillin resistant Staphylococcus aureus Start five days prior to surgery. Apply 1/4 inch to a cotton swab and swab each nostril twice daily 22 g 10/18/2024 11/15/2024 Active naloxone hydrochloride 40 mg/ml nasal spray [...] Status: Ordered take 1 capsule by mo [facility] once daily as needed omeprazole (PRILOSEC) 40 mg capsule Take 40 mg by mouth once daily as needed. Active take 1 capsule by mo [facility] once daily before breakfast omeprazole (PriLOSEC) 20 [...] 0 03/23/2024 03/30/2024 Active polyethylene glycol 3350 88773 mg powder for oral solution (6 sources) Osmotic Laxative Start: 03-23-2024 End: 04-22-2024 polyethylene glycol 3350 17 gram packet Take 1 Packet by mouth two times a day. Dissolve dose in 4 - 8 ounces of liquid and take as directed. 60 Packet 03/23/2024 04/22/2024 Active sennosides, correction 8.6 mg oral tablet (6 sources) Start: [...] NEEDED, # 90 tab(s), 1 Refill(s), Pharmacy: [facility], TAKE 2 TO 3 TABLETS BY MOUTH ONCE DAILY NEEDED, 182.88, cm, 12/16/23 6:36:00 EDT, Height, 89.3, kg, 12/16/23 6:42:00 EDT, Weight Dosing 11/19/2023 Active take 1 tablet by mana th once daily as needed sildenafiL, pulm.hypertension, (REVATIO) 20 mg tablet TAKE 2 TO 3 TABLETS BY MOUTH ONCE DAILY NEEDED 0 Active terbinafine 250 mg oral tablet (2 sources) Allylamine Antifungal Start: 01-14-2023 take 1 tablet by mouth in the morning terbinafine (LamISIL) 250 MG tablet Take 250 mg by mouth in the morning. 01/14/2023 Active 28 actuat teriparatide 0.02 mg/actuat pen injector (20 sources) Parathyroid Hormone Analog Start: 05-02-2024 inject [...] Active traZODone hydrochloride 100 mg oral tablet (8 sources) Serotonin Reuptake Inhibitor Start: 08-23-2024 take [...] TRANSDERML Q7D 4 June 10, 2024 11:00pm pregabalin 200 mg oral capsule (20 sources) Start: 03-24-2024 End: 10-30-2024 take 1 capsule by mouth three times daily Pregabalin (LYRICA) 200 mg capsule Indications: Acute on chronic low back pain Take 1 capsule by mouth three times a day for 30 days. 90 capsule 03/24/2024 10/30/2024 Discontinued (Discontinued by another Health Care Provider) tamsulosin hydrochloride 0.4 mg oral capsule (20 sources) alpha-Adrenerg ic Sharmin Start: 03-23-2024 End: 10-30-2024 take 1 capsule by mouth once daily at bedtime tamsulosin (FLOMAX) 0.4 mg Take 1 capsule by mouth daily at bedtime. 30 capsule 03/23/2024 5:47 PM EDT 03/23/2024 10/30/2024 Discontinued (Course of therapy completed) Problems Active Problems Problem Classification Problem Date Documented Date Episodic/Chronic Abdominal hernia (12 sources) Right inguinal hernia ; Translations: [Inguinal hernia] Onset: 04-27-2024 04-27-2024 Episodic Administrative/socia l admission (1 source) Education and/or schooling finding; Translations: [Problems related to education and literacy, unspecified] 10-18-2024 Episodic Anxiety disorders (2 sources) Mixed anxiety and depressive disorder; Translations: [Anxiety disorder, unspecified] Onset: 03-01-2024 10-30-2024 Chronic Deficiency and other anemia (1 source) Anemia; Translations: [Anemia, unspecified] 10-18-2024 Episodic Diseases of mouth; excluding dental (1 source) Acute sialoadenitis; Translations: [Acute sialoadenitis] Onset: 01-08-2018 Episodic Esophageal disorders (20 sources) Gastroesophageal reflux disease without esophagitis; Translations: [Gastro-esophageal reflux disease without esophagitis] Onset: 03-01-2024 Resolved: 03-01-2024 03-01-2024 Chronic Essential hypertension (20 sources) Hypertensive disorder; Translations: [Essential (primary) hypertension] Onset: 03-01-2024 Resolved: 03-01-2024 03-01-2024 Chronic Immunizations and screening for infectious disease (1 source) Suspected carrier of methicillin resistant staphylococcus aureus; Translations: [Carrier or suspected carrier of Methicillin resistant Staphylococcus aureus] 10-18-2024 Episodic Osteoporosis (10 sources) Osteoporosis; Translations: [Senile osteoporosis] Onset: 07-06-2024 04-25-2024 Chronic Other fractures (2 sources) Compression fracture of [...] Episodic Other nutritional; endocrine; and metabolic disorders (2 sources) Overweight 08-29-2024 Episodic Other nutritional; endocrine; and metabolic disorders (2 sources) Overweight in adulthood with body mass index of 25 or more but less than 30 08-29-2024 Episodic Other screening for suspected conditions (not mental disorders or infectious disease) (2 sources) Screening for malignant neoplasm of colon done; [...] (adult)(pediatric)] Chronic Residual codes; unclassified (1 source) Unspecified symptoms and signs involving general sensations and perceptions; Translations: [Unspecified symptoms and signs involving general sensations and perceptions] Onset: 09-06-2023 Episodic Residual codes; unclassified (3 sources) History of lumbar laminectomy; Translations: [Other specified postprocedural states] 02-10-2024 Episodic Residual codes; unclassified (5 sources) History of operative procedure on lumbar spinal structure; Translations: [Other specified postprocedural states] 03-01-2024 Episodic Screening and history of mental health and substance abuse codes (2 sources) Ex-smoker; Translations: [Personal history of nicotine dependence] Onset: 10-30-2024 10-30-2024 Episodic Spondylosis; intervertebral disc disorders; other back problems (20 sources) Degeneration of lumbosacral intervertebral disc; Translations: [Other intervertebral disc degeneration, lumbosacral region] Onset: 05-15-2024 02-10-2024 Chronic Unclassified (3 sources) CONTACT W/AND (SUSP) EXPOS COVID-19; Translations: [CONTACT W/AND (SUSP) EXPOS COVID-19] Onset: 08-24-2021 Unclassified (3 sources) Patient encounter status 08-29-2024 Unclassified (1 source) Chronic low back pain, unspecified back pain laterality, unspecified whether sciatica present; Translations: [Chronic low back pain, unspecified back pain laterality, unspecified whether sciatica present] Onset: 03-19-2024 Past or Other Problems Problem Classification Problem Date Documented Date Episodic/Chronic Fluid and electrolyte disorders (20 sources) [...] [Chondromalacia, right knee] Onset: 09-09-2020 Resolved: 03-01-2024 03-01-2024 Episodic Comment on above: Outside Source Comme nt: Overview: Added automatically from request for surgery [id number] Other connective tissue disease (3 sources) Other [...] involving general sensations and perceptions] 09-06-2023 Episodic Spondylosis; intervertebral disc disorders; other back problems (20 sources) Radiculopathy, lumbar region; Translations: [Lumbar radiculopathy] Onset: 03-17-2014 Resolved: 10-30-2024 03-01-2024 Episodic Unclassified (1 source) CONTACT W/AND (SUSP) EXPOS COVID-19; Translations: [CONTACT W/AND (SUSP) EXPOS COVID-19] Onset: 08-19-2021 Unclassified (1 source) Preprocedural examination done 10-30-2024 Results Test Name Value Interpretation Reference Range Facility Comprehensive metabolic 2000 panelOrdered By: Afua Vigil on 10-30-2024 Albumin [Mass/Vol] 4.1 g/dL 3.9 - 4.9 g/dL [facility] ALP [Catalytic activity/Vol] 70 U/L 38 - 113 U/L [facility] ALT [Catalytic activity/Vol] 22 U/L 10 - 54 U/L [facility] Anion gap [Moles/Vol] 10 mmol/L 8 - 15 mmol/L [facility] AST [Catalytic activity/Vol] 30 U/L 14 - 40 U/L [facility] Bilirubin [Mass/Vol] 0.8 mg/dL 0.2 - 1 .3 mg/dL [facility] Calcium [Mass/Vol] 9.2 mg/dL 8.5 - 10. 2 mg/dL [facility] Chloride [Moles/Vol] 100 mmol/L 98 - 10 7 mmol/L [facility] CO2 [Moles/Vol] 26 mmol/L 22 - 30 mmol/L [facility] Creatinine [Mass/Vol] 0.94 mg/dL 0.73 - 1.22 mg/dL [facility] GFR/1.73 sq M.predicted among non-blacks MDRD (S/P/Bld) [Vol rate/Area] 95 mL/min/{1.73_m2} - PINF [facility] Comment on above: Estimated Glomerular Filtration Rate [...] not accurately reflect actual GFR. Glucose [Mass/Vol] 83 mg/dL 74 - 99 mg/dL [facility] Comment on above: The [employer] Association (ADA) provides guidance for [...] Standards of Medical Care in Diabetes 2016, [employer]. Diabetes Care. 2016.39(Suppl 1). Interpretation and review of laboratory results Abnormal [facility] Potassium [Moles/Vol] 4.1 mmol/L 3.7 - 5.1 mmol/L [facility] Protein [Mass/Vol] 5.8 g/dL Low 6.3 - 8.0 g/dL [facility] Sodium [Moles/Vol] 136 mmol/L 136 - 144 mmol/L [facility] Urea nitrogen [Mass/Vol] 14 mg/dL 9 - 24 mg/dL [facility] ECG COMPLETEon 10-30-2024 Atrial Rate 66 BPM [facility] Calculated P Levant 36 degrees [facility] Calculated R Levant 38 degrees [facility] Calculated T Levant 14 degrees [facility] P-R Interval 156 ms [facility] QRS Duration 92 ms [facility] QT Interval 374 ms [facility] QTC Calculation (Bazett) 392 ms [facility] Ventricular Rate 66 BPM [facility] SINUS RHYTHM WITH OCCASIONAL PREMATURE VENTRICULAR COMPLEXES OTHERWISE NORMAL ECG Confirmed by MD BRANDT QARAB ([id number]) on 10/30/2024 3:10:34 PM [facility] NAME : ENRRIQUE MADERA PID : [id number] : 1965 Gender : Male Race : ORD : [id number] Procedure Date : Oct 30 2024 10:07:05 Edit Date : Oct 30 2024 15:10:36 Diagnosis: SINUS RHYTHM WITH OCCASIONAL PREMATURE VENTRICULAR COMPLEXES OTHERWISE NORMAL ECG Confirmed by MD BRANDT QARAB ([id number]) on 10/30/2024 3:10:34 PM Test Reason : Z01.818 Preoperative examination Location : 135 : [facility] Overread By : MD BRANDT QARAB Edited By : MD BRANDT QARAB Referred By : , Acquired by : [facility] Livan 10-26-2024 KATYA Telephone (SPNSMN) -- ENRRIQUE MADERA ([id number]) 1965 M Date Time Provider Department 10/26/24 WILMER ASHLEY During your visit today, we recorded the following information about you: Claritza Luna RN 10/26/2024 12:39 PM Signed Neuro SPINE CARE COORDINATION QUICK NOTE Post operative appointment is scheduled incorrectly. A message for appointment time change has been sent to S70 as follows, This patient has a scheduled post op virtual appointment with Elisa Leonard at 1000 on 11/30. This should be scheduled for a post op VV 11/30 with Elisa Leonard but at 3:00 Claritza Luna RN [address]ine [address] Reporter Allergies As of Date: 10/26/2024 Noted Allergy Reaction OXYCODONE 01/26/2023 16 - Unknown Comments: Other Reaction(s): addiction/former addict. Agreeable to use during acute pain episode hospitalization Date Reviewed: 10/03/2024 Reviewed by: Rosa Nayak, KRISTIN - Fully Assessed Prescriptions as of 10/26/2024 - mupirocin (BACTROBAN) 2 % ointment Start five days prior to surgery. Apply 1/4 inch to a cotton swab and swab each nostril twice daily - Teriparatide (FORTEO) 20 mcg/dose (600mcg/2.4mL) Inject [...] NEEDED, # 90 tab(s), 1 Refill(s), Pharmacy: [facility], TAKE 2 TO 3 TABLETS BY MOUTH ONCE DAILY NEEDED, 182.88, cm, 12/16/23 6:36:00 EDT, Height, 89.3, kg, 12/16/23 6:42:00 EDT, Weight Dosing Problem List As Of Date 10/26/2024 Noted Resolved Burst fracture of T12 vertebra [...] 03/23/2024 Encounter Status:Closed by CLARITZA LUNA on 10/26/24 [facility] CNPNon 10-18-2024 CNPN Telephone (SPNSMN) -- ZHOUENRRIQUE MOREJON ([id number]) 1965 M Date Time Provider Department 10/18/24 WILMER ASHLEY [facility] During your visit today, we recorded the following information about you: Claritza Luna RN 10/18/2024 1:48 PM Signed Surgery Planning Name: Enrrique Madera Age: [age] year old Wt: 86.3 kg (190 lb 4.1 oz) BMI: 25.80 kg/(m2) Patient's Home Address: [address] [place] [address] Diagnosis: Status post lumbar spine surgery for decompression of spinal cord Procedure: Lumbar Decompression with Fusion at L3/4, 4/5 5/S1 TLIF left sided facetectomies Special needs: microscope, Cell saver Length of Surgery:6 Last In-person/VV appointment w/ Surgeon:08/24/24 PMH: PAST MEDICAL HISTORY Diagnosis Date Burst fracture of T12 vertebra (HCC) 03/17/2014 Carpal tunnel syndrome of right wrist 01/26/2023 Chondromalacia of right knee 09/09/2020 Added automatically from request for surgery [id number] Chronic pain 03/01/2024 Depressive disorder 03/01/2024 Erectile dysfunction due to arterial insufficiency 03/01/2024 GERD without esophagitis 03/01/2024 HTN (hypertension) 03/01/2024 Low back pain 03/17/2014 BRADY (obstructive sleep apnea) 03/19/2024 PSH: No past surgical history on file. Nicotine: Tobacco Use: Types: Cigarettes, Snuff HGBA1C: No results found for: HBA1C CBC: Hemoglobin (g/dL) Date Value 03/23/2024 14.2 Hematocrit (%) Date Value 03/23/2024 42.1 WBC (k/uL) Date Value 03/23/2024 11.41 Platelet Count (k/uL) Date Value 03/23/2024 251 Optimization Labs:Blood Management and Nicotine testing Images: XR:NA MRI:NA CT (ALIF):NA Blood Thinner: No Consults: Type(s):None Provider: NA Conservative Therapy: RX NSAIDS for 3 Months or Greater (diclofenac (Voltaren, [place])) PT Narcotic: Buprenorphine patch Membrane stabilizer: Gabapentin tried, now Lyrica Oral steroids Tylenol Injections: Multiple different injections over the years - 04/23/24: Right L3-[address] Bradshaw- >80% improvement for 4 days PT notes obtained if completed:NA Other Medication/Concerns: NA Transplant History:No Implants: No Orders Nicotine X HGBA1C N/A Blood MGMT X Pre-op Imaging N/A Surg Elective X PACC X MRSA Swab X Urology/CT Lumbar N/A Trek X Team MC X Education MC X Allergies As of Date: 10/18/2024 Noted Allergy Reaction OXYCODONE 01/26/2023 16 - Unknown Comments: Other Reaction(s): addiction/former addict. Agreeable to use during acute pain episode hospitalization Date Reviewed: 10/03/2024 Reviewed by: Rosa Nayak RN - Fully Assessed Prescriptions as of 10/18/2024 - Teriparatide (FORTEO) 20 mcg/dose (600mcg/2.4mL) Inject [...] NEEDED, # 90 tab(s), 1 Refill(s), Pharmacy: [facility], TAKE 2 TO 3 TABLETS BY MOUTH ONCE DAILY NEEDED, 182.88, cm, 12/16/23 6:36:00 EDT, Height, 89.3, kg, 12/16/23 6:42:00 EDT, Weight Dosing Problem List As Of Date 10/18/2024 Noted Resolved Burst fracture of T12 vertebra [...] G89.29] 03/21/2024 Urinary retention [R33.9] 03/22/2024 03/23/2024 Encount (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 Normal [facility] CNPNon 10-10-2024 CNPN Telephone (SPNSMN) -- ENRRIQUE MADERA ([id number]) 1965 M Date Time Provider Department 10/10/24 WILMER ASHLEY [facility] During your visit today, we recorded the following information about you: Claritza Luna RN 10/10/2024 4:22 PM Signed Neuro SPINE CARE COORDINATION QUICK NOTE Called to speak with patient about moving surgery up to 11/15 as patient was hoping for either the first or second week of November. Patient accepted this new date is flexible as to when his PACC needs to be done. Patient states that he will do whatever date and time is necessary. Will get patient scheduled for surgery 11/15. Patient verbalized understanding of information provided by nurse. Patient instructed to call back should symptoms change or worsen. Patient has no other questions or concerns at this time. Patient advised to follow up with office with any additional issues. Claritza Luna RN Spine District Court Reporter Allergies As of Date: 10/10/2024 Noted Allergy Reaction OXYCODONE 01/26/2023 16 - Unknown Comments: Other Reaction(s): addiction/former addict. Agreeable to use during acute pain episode hospitalization Date Reviewed: 10/03/2024 Reviewed by: Rosa Nayak, KRISTIN - Fully Assessed Prescriptions as of 10/10/2024 - Teriparatide (FORTEO) 20 mcg/dose (600mcg/2.4mL) Inject [...] NEEDED, # 90 tab(s), 1 Refill(s), Pharmacy: [facility], TAKE 2 TO 3 TABLETS BY MOUTH ONCE DAILY NEEDED, 182.88, cm, 12/16/23 6:36:00 EDT, Height, 89.3, kg, 12/16/23 6:42:00 EDT, Weight Dosing Problem List As Of Date 10/10/2024 Noted Resolved Burst fracture of T12 vertebra [...] 03/23/2024 Encounter Status:Closed by CLARITZA LUNA on 10/10/24 Normal [facility] HISTORY PHYSICALon HISTORY PHYSICAL HNO ID: [id number] Author: TACO BRADSHAW MD Service: ? Author Type: Physician Type: H&P Filed: 10/03/2024 07:37 Note Text: PROCEDURAL SEDATION HISTORY AND PHYSICAL EXAM SERVICE DATE: 10/03/2024 SERVICE TIME: 7:37 AM Subjective HPI: This is a 58 year old male who presents with back and leg pain PAST ANESTHESIA HISTORY: No history of adverse event PAST MEDICAL HISTORY Diagnosis Date Burst fracture of T12 vertebra (HCC) 03/17/2014 Carpal tunnel syndrome of right wrist 01/26/2023 Chondromalacia of right knee 09/09/2020 Added automatically from request for surgery [id number] Chronic pain 03/01/2024 Depressive disorder 03/01/2024 Erectile dysfunction due to arterial insufficiency 03/01/2024 GERD without esophagitis 03/01/2024 HTN (hypertension) 03/01/2024 Low back pain 03/17/2014 BRADY (obstructive sleep apnea) 03/19/2024 No past surgical history on file. Prior to Admission medications as of 07/06/24 0819 Medication Sig Last Dose Taking Teriparatide (FORTEO) 20 mcg/dose (600mcg/2.4mL) Inject 0.08 [...] NEEDED, # 90 tab(s), 1 Refill(s), Pharmacy: [facility], TAKE 2 TO 3 TABLETS BY MOUTH ONCE DAILY NEEDED, 182.88, cm, 12/16/23 6:36:00 EDT, Height, 89.3, kg, 12/16/23 6:42:00 EDT, Weight Dosing ALLERGIES Allergen Reactions Oxycodone Unknown Other Reaction(s): [...] Bradshaw MD PATIENT NAME: Enrrique Madera DATE: October 03, 2024 TIME: 7:37 AM [facility] OPERATIVE NOon 10-03-2024 OPERATIVE NO HNO ID: [id number] Author: TACO BRADSHAW MD Service: ? Author Type: Physician Type: Operative Report Filed: 10/03/2024 09:22 Note Text: OPERATIVE/PROCEDURE REPORT LOG ID: [id number] Surgery/Procedure Date: 10/03/2024 Surgeon: Taco Bradshaw MD Hunter: Uziel Strickland DO Procedure(s):Operation: left L5-S1 Transforaminal epidural steroid injection. Pre-Op/Pre-Procedure Diagnosis: Lumbosacral neuritis Post-Op Diagnosis: same Anesthesia: Procedural Sedation 2mg of IV versed was used with 25 min of intraservice monitoring time. Fluoroscopy time: 70 sec Time In: 08:48 am Time out: 09:07 am Estimated Blood Loss: None Specimens: None Drains: None Complications: None INDICATIONS: The patient has been referred by my colleague Dr Ashley with concordant subjective, objective, and radiologic findings of Lumbar radiculitis, referred for diagnostic and therapeutic left L4-L5 and L5-S1 Transforaminal epidural steroid injection with failure of prior conservative care with physical therapy and medications alone. At this time, the patient wishes to avoid surgery. This is the patient's 2nd injection under my care. -right L3-L4 Transforaminal epidural steroid injection (Dexamethasone) on 04/23/[address] Bradshaw with 100% relief (to date) -Left L3-4 and L4-5 transforaminal epidural steroid injection (60mg DepoMedrol) on 08/14/[address] Sheriff Denton with 60% relief for 2 days PROCEDURE: After obtaining both verbal and written informed consent, the patient was placed in a prone position on the fluoroscopic table in [facility] procedure room, the patient's posterior lumbosacral spine was prepped and draped in usual sterile fashion using iodine. The patient was connected to noninvasive blood pressure, EKG, pulse oximetry monitoring, and monitored by a registered interventional nurse throughout the procedure. Before initiating procedure, all relevant information was verified in a time-out. Two Skin wheal(s) were raised using 1% preservative-free lidocaine near the left L4-L5 and L5-S1 pedicle which was localized by counting from the intersection of the iliac crest. Through the skin wheal a 22-gauge, 5-inch curved Quincke-tip spinal needle was inserted and advanced under direct fluoroscopic visualization in the AP, ipsilateral oblique and lateral planes, until the needle tip arrived at the 6 o'clock position of the left L4-L5 and L5-S1 pedicle. Proper needle placement was confirmed with 4 cc of Omnipaque-180M nonionic contrast confirming good epidural flow of contrast and flow along the exiting left L4-L5 and L5-S1 nerve root without any intravascular uptake of contrast seen under live direct fluoroscopic visualization in the AP, oblique, and lateral planes. At this point 10 mg Dexamethasone and preservative- free 1% Lidocaine 3 cc were infused in the epidural space. Adequate hemostasis was obtained at the needle puncture site. The patient's back was cleaned and a sterile dressing was applied. The patient was taken conscious and in stable condition to the recovery room. No complications as a result of this procedure. Post procedure precautions and instructions were reviewed with the patient who verbalized understanding. I/primary surgeon/proceduralist performed the procedure with assistance. Significant Findings: degenerative scoliosis. Initial L4-5 IA flow, needle adjusted laterally with concordant. difficult access at L5 due to iliac crest .L5 and L4 concordant Pre-Op Pain: 9. Post-Op Pain: 0. Care Instructions: Discharge per protocol. Medications: See Epic medication section Appointment: Patient to return 12 weeks to clinic with pain diary. PT in [place]. Schedule for surgery 11/2024 after doing Forteo for 6 months Discharge Condition: Good condition for discharge. Patient discharged home when all discharge criterion met. Taco Bradshaw MD Staff Physician [facility] SIGNATURE: Taco Bradshaw MD PATIENT NAME: Enrrique Madera DATE: October 03, 2024 TIME: 9:17 AM PAGER/CONTACT #: [facility] Ambulatory Visit Summaryon 0 10-01-2024 Ambulatory Visit Summary Ambulatory Visit Summary ENRRIQUE MADERA :1965 Visit Date:10/01/2024 Ambulatory Visit Instructions Your Diagnosis Elevated PSA Your Care Team Attending Physician - PURNIMA SARAH PA-C Primary Care Physician - Hany Olivares MD Referring Physician - Hany Olivares MD This Is Your Medications List buPROPion (Wellbutrin SR 150 mg Tab-ER) diclofenac [...] retinal attachment. Discharge Vitals Heart Rate (Peripheral) 72 Respiratory Rate 18 Blood Pressure 137/95 Height 182 cm Height 72 in Weight 83.1 kg Weight 183.204 lb BMI 25.09 Medications What How Much When Instructions Unchanged buPROPion (Wellbutrin SR 150 mg Tab-ER) 1 Tablets By Mouth 2 times a day Unchanged diclofenac (diclofenac sodium 75 mg Oral EC Tab) 1 Tablets By Mouth 2 times a day Unchanged famotidine (Pepcid) Unchanged fluoxetine (Prozac 40 mg Cap) 1 Capsules By Mouth Every day Unchanged gabapentin (gabapentin 800 mg Tab) 1 Tablets By Mouth 4 times a day Unchanged hydrochlorothiazide (hydrochlorothiazide 12.5 mg Tab) 1 Tablets By Mouth Every day Unchanged lisinopril (lisinopril 40 mg Tab) 1 Tablets By Mouth Every day Unchanged methocarbamol 500 Milligram By Mouth Every 4 hours as needed for as needed for pain Unchanged omeprazole (omeprazole 40 mg Cap-DR) 1 Capsules By Mouth 2 times a day Unchanged teriparatide (teriparatide 600 mcg/ 2.4 mL subcutaneous device) 20 Microgram Subcutaneous Every day Unchanged trazodone (traZODONE 100 mg Tab) 1 Tablets By Mouth Once a day (at bedtime) Allergies No Known Allergies No Known Medication Allergies Problems Ongoing - Any problem that you are currently receiving treatment for. BMI 25.0-25.9,adult GERD (gastroesophageal reflux disease) Hypertension Lumbar radiculopathy Osteoporosis Overweight Reducible right inguinal hernia Screening for malignant neoplasm of colon Historical - Any problem that you are no longer receiving treatment for. Chondromalacia Patient Survey You may receive a survey via text or e-mail asking about your office visit. Please share your experience with us by completing your survey. We appreciate your feedback and thank you for choosing us for your care. [facility] Livan 09-24-2024 KATYA Telephone ([facility]) -- ZHOUENRRIQUE ([id number]) 1965 M Date Time Provider Department 09/24/24 TACO BRADSHAW During your visit today, we recorded the following information about you: Jody Giron RN 09/24/2024 1:45 PM Signed Phoned patient confirm appointment for Enrrique Madera for spine procedure on 10/03/2024 Patient has had previous injections. He did receive the instructions and is comfortable with them. Does not have questions or concerns at this time. Jody Giron RN September 24, 2024 1:45 PM Allergies As of Date: 09/24/2024 Noted Allergy Reaction OXYCODONE 01/26/2023 16 - Unknown Comments: Other Reaction(s): addiction/former addict. Agreeable to use during acute pain episode hospitalization Date Reviewed: 07/06/2024 Reviewed by: Irais Dixon OCCA - Fully Assessed Reason for Visit: Pre-injection instructions [Other] Prescriptions as of 09/24/2024 - Teriparatide (FORTEO) 20 mcg/dose (600mcg/2.4mL) Inject [...] NEEDED, # 90 tab(s), 1 Refill(s), Pharmacy: [facility], TAKE 2 TO 3 TABLETS BY MOUTH ONCE DAILY NEEDED, 182.88, cm, 12/16/23 6:36:00 EDT, Height, 89.3, kg, 12/16/23 6:42:00 EDT, Weight Dosing Problem List As Of Date 09/24/2024 Noted Resolved Burst fracture of T12 vertebra [...] retention [R33.9] 03/22/2024 03/23/2024 Encounter Status:Closed by JODY GIRON on 09/24/24 [facility] Ambulatory Visit Summaryon 0 08-29-2024 Ambulatory Visit Summary Ambulatory Visit Summary ENRRIQUE MADERA :1965 Visit Date:08/29/2024 Ambulatory Visit Instructions Your Care Team Attending Physician - CARYN QUISPE, Wilmer Merlos Primary Care Physician - Elise QUISPE, Hany Referring Physician - Hany Olivares MD This [...] Follow-Up Appointments Tuesday 10:20 AM EST With: PURNIMA SARAH PA-C Where: [facility] [id number]- Medications What How Much When Instructions Unchanged [...] you for choosing [facility]. [facility] Telephone (NIQ) -- ENRRIQUE MADERA ([id number]) 1965 M Date Time Provider Department 08/28/24 [...] not found Best number to reach caller: [phone] Best time to reach caller: ANY Is it OK to leave a detailed voice message? Yes Claritza Contreras RN 08/30/2024 3:13 PM Signed Neuro SPINE CARE COORDINATION QUICK NOTE This has been addressed in another encounter. Claritza Luna RN [facility] Reporter Allergies As of Date: 08/28/2024 Noted Allergy [...] NEEDED, # 90 tab(s), 1 Refill(s), Pharmacy: [facility], TAKE 2 TO 3 TABLETS [...] Encounter Status:Closed by CLARITZA LUNA on 08/30/24 [facility] Outside Recordson 08-20-2024 Outside Records [id number]#1.00OTGTIFF [facility] Consultation/Specialist Note on 08-01-2024 Consultation/Speciali st Note [id number]#[facility]/Specialist Note on 07-09-2024 Consultation/Speciali st Note [id number]#1.00[facility] 25(OH)D3 [facility] 2023 25-hydroxyvitamin D3 [Mass/Vol] 36.7 ng/mL Normal 31.0-80.0 [facility] Comment on above: Order Comment: Nancii estephania Type: BLOOD SPECIMEN Ordering Facility: [facility] Address: [address] [place] [address] Result Comment: Clas sification of 25 [place] Vitamin D status: Deficiency/Insufficiency: < or = 30 ng/ml. Sufficiency/Optimal Levels: 31-80 ng/mL Toxicity: > 100 ng/mL. Test performed by chemiluminescent immunoassay. Performed By: #### 2 4321-2 #### [facility] CLIA [id number] [address] [place] [address] [place] 25-hydroxyvitamin D3 [Mass/V ol]on 07-06-2024 Interpretation and review of laboratory results Normal [facility] The reference range interval was based on an analysis of samples from healthy adults and may not pertain to children from 0-18 years old. [facility] CNOVon 07-06-2024 CNOV Office Visit ([facility] ) -- ENRRIQUE MADERA ([id number]) 1965 M Date Time Provider Department 07/06/24 8:00 AM ALISON BRICENO [facility] During your visit today, we recorded the [...] getting a 2nd opinion with dr ashley nexttueth his urine calcium was elevated 600 relates [...] automatically fro (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 Normal [facility] Calcium.ionized [Moles/Vol]o n 07-06-2024 Calcium.ionized (Bld) [Mass/Vol] 1.29 mmol/L 1.08 - 1.30 mmol/L [facility] Calcium.ionized adjusted to pH 7.4 (Bld) [Moles/Vol] 1.22 mmol/L 1.08 - 1.30 mmol/L [facility] Interpretation and review of laboratory results Normal [facility] Calcium.ionized (Bld) [Mass/Vol] 1.29 mmol/L Normal 1.08-1.30 [facility] Comment on above: Order Comment: Rosalie best Type: BLOOD SPECIMEN Ordering Facility: [facility] Address: [address] [place] [address] Performed By: #### 1 995-0 #### [facility] CLIA [id number] [address] [place] [address] [place] Calcium.ionized adjusted to pH 7.4 (Bld) [Moles/Vol] 1.22 mmol/L Normal 1.08-1.30 [facility] Comment on above: Order Comment: Rosalie best Type: BLOOD SPECIMEN Ordering Facility: [facility] Address: [address] [place] [address] Performed By: #### 1 995-0 #### [facility] CLIA [id number] [address] [place] [address] [place] Comprehensive metabolic 2000 panelon 07-06-2024 Albumin [Mass/Vol] 4.1 g/dL 3.9 - 4.9 g/dL [facility] ALP [Catalytic activity/Vol] 96 U/L 38 - 113 U/L [facility] ALT [Catalytic activity/Vol] 28 U/L 10 - 54 U/L [facility] Anion gap [Moles/Vol] 9 mmol/L 8 - 15 mmol/L [facility] AST [Catalytic activity/Vol] 39 U/L 14 - 40 U/L [facility] Bilirubin [Mass/Vol] 0.5 mg/dL 0.2 - 1 .3 mg/dL [facility] Calcium [Mass/Vol] 9.0 mg/dL 8.5 - 10. 2 mg/dL [facility] Chloride [Moles/Vol] 99 mmol/L 98 - 10 7 mmol/L [facility] CO2 [Moles/Vol] 28 mmol/L 22 - 30 mmol/L [facility] Creatinine [Mass/Vol] 1.03 mg/dL 0.73 - 1.22 mg/dL [facility] GFR/1.73 sq M.predicted among non-blacks MDRD (S/P/Bld) [Vol rate/Area] 85 mL/min/{1.73_m2} - PINF [facility] Comment on above: Estimated Glomerular Filtration Rate [...] 64 mg/dL Low 74 - 99 mg/dL [facility] Comment on above: The [place] Diabete s Association (ADA) provides guidance for [...] Standards of Medical Care in Diabetes 2016, [employer]. Diabetes Care. 2016.39(Suppl 1). Interpretation and review of laboratory results Abnormal [facility] Potassium [Moles/Vol] 4.1 mmol/L 3.7 - 5.1 mmol/L [facility] Protein [Mass/Vol] 6.3 g/dL 6.3 - 8.0 g/dL [facility] Sodium [Moles/Vol] 136 mmol/L 136 - 144 mmol/L [facility] Urea nitrogen [Mass/Vol] 24 mg/dL 9 - 24 mg/dL [facility] Albumin [Mass/Vol] 4.1 g/dL Normal 3.9-4.9 [facility] Comment on above: Order Comment: Speci estephania Type: BLOOD SPECIMENOrdering Facility: [facility] Address: [address] [place] [address] Performed By: #### 2 4323-8 ####[facility] [id number] [place] [address] [place] ALP [Catalytic activity/Vol] 96 U/L Normal 38-113 [facility] Comment on above: Order Comment: Nancii estephania Type: BLOOD SPECIMENOrdering Facility: [facility] Address: [address] [place] [address] Performed By: #### 2 4323-8 ####[facility]IA [id number] [place] [address] [place] ALT [Catalytic activity/Vol] 28 U/L Normal 10-54 [facility] Comment on above: Order Comment: Nancii men Type: BLOOD SPECIMENOrdering Facility: [facility] Address: [address] [place] [address] Performed By: #### 2 4323-8 ####[facility] [id number] [place] [address] [place] Anion gap [Moles/Vol] 9 mmol/L Normal 8-15 [facility] Comment on above: Order Comment: Speci men Type: BLOOD SPECIMENOrdering Facility: [facility] Address: [address] [place] [address] Performed By: #### 2 4323-8 ####[facility]IA [id number] [place] [address] [place] AST [Catalytic activity/Vol] 39 U/L Normal 14-40 [facility] Comment on above: Order Comment: Speci men Type: BLOOD SPECIMENOrdering Facility: [facility] Address: [address] [place] [address] Performed By: #### 2 4323-8 ####[facility] [id number] [place] [address] [place] Bilirubin [Mass/Vol] 0.5 mg/dL Normal 0.2-1.3 [facility] Comment on above: Order Comment: Speci men Type: BLOOD SPECIMENOrdering Facility: [facility] Address: [address] [place] [address] Performed By: #### 2 4323-8 ####[facility]CLIA [id number] [place] [address] [place] Calcium [Mass/Vol] 9.0 mg/dL Normal 8.5-10.2 [facility] Comment on above: Order Comment: Speci men Type: BLOOD SPECIMENOrdering Facility: [facility] Address: [address] [place] [address] Performed By: #### 2 4323-8 ####[facility]CLIA [id number] [place] [address] [place] Chloride [Moles/Vol] 99 mmol/L Normal 98-107 [facility] Comment on above: Order Comment: Speci men Type: BLOOD SPECIMENOrdering Facility: [facility] Address: [address] [place] [address] Performed By: #### 2 4323-8 ####[facility]CLIA [id number] [place] [address] [place] CO2 [Moles/Vol] 28 mmol/L Normal 22-30 [facility] Comment on above: Order Comment: Speci men Type: BLOOD SPECIMENOrdering Facility: [facility] Address: [address] [place] [address] Performed By: #### 2 4323-8 ####[facility] LABIA [id number] [address] [place] Creatinine [Mass/Vol] 1.03 mg/dL Normal 0.73-1.22 [facility] Comment on above: Order Comment: Speci men Type: BLOOD SPECIMENOrdering Facility: [facility] Address: [address] [place] [address] Performed By: #### 2 4323-8 ####[facility] LABIA [id number] [address] Creatinine and Glomerular filtration rate.predicted panel (S/P/Bld) 85 mL/min/1.73m??? Normal >=60 [facility] Comment on above: Order Comment: Speci men Type: BLOOD SPECIMENOrdering Facility: [facility] Address: [address] [place] [address] Result Comment: Lia mated Glomerular Filtration Rate [...] Performed By: #### 2 4323-8 ####[facility] LABCLIA [id number] [address] [id number] [address] [place] Glucose [Mass/Vol] 64 mg/dL Low 74-99 [facility] Comment on above: Order Comment: Speci men Type: BLOOD SPECIMENOrdering Facility: [facility] Address: [address] [place] [address] Result Comment: The [place] Diabetes Association (ADA) provides guidance for cutoff [...] Standards of Medical Care in Diabetes 2016, [place] Diabetes Association. Diabetes Care. 2016.39(Suppl 1). Performed By: #### 2 4323-8 ####[facility] LABCLIA [id number] [place] [address] [place] Potassium [Moles/Vol] 4.1 mmol/L Normal 3.7-5.1 [facility] Comment on above: Order Comment: Nancii estephania Type: BLOOD SPECIMENOrdering Facility: [facility] Address: [address] [place], [place] [address] Performed By: #### 2 4323-8 ####[facility]CLIA [id number] [place] [address] [place] Protein [Mass/Vol] 6.3 g/dL Normal 6.3-8.0 [facility] Comment on above: Order Comment: Speci men Type: BLOOD SPECIMENOrdering Facility: [facility] Address: [address] [place], [place] [address] Performed By: #### 2 4323-8 ####[facility]CLIA [id number] [place] [address] [place] Sodium [Moles/Vol] 136 mmol/L Normal 136-144 [facility] Comment on above: Order Comment: Speci men Type: BLOOD SPECIMENOrdering Facility: [facility] Address: [address] [place] [id number] Performed By: #### 2 4323-8 ####[facility]CLIA [id number] [place] [address] [place] Urea nitrogen [Mass/Vol] 24 mg/dL Normal 9-24 [facility] Comment on above: Order Comment: Speci men Type: BLOOD SPECIMENOrdering Facility: [facility] Address: [address] [place] [address] Performed By: #### 2 4323-8 ####[facility] LABCLIA [id number] [place] [address] [place] VITAMIN D 25 HYDROXYon 07-06 25-hydroxyvitamin D3 [Mass/Vol] 36.7 ng/mL 31.0 - 80.0 ng/mL [facility] Comment on above: Classification of 25 [place] [...] for choosing us for your care. Normal [facility] General Surgery Office/Clini c Noteon 06-12-2024 General [...] SARS-CoV-2 (COVID-19) mRNA-1273 vaccine 10/23/[address] [facility] Comment on above: Result Comment: Elec tronically Signed By: CARYN QUISPE, Wilmer TilleyDate and Time Signed: 06/12/24 20:18 EDT Laboratory - Drug toxicology on 06-11-2024 Amphetamines Ql (U) Negative [facility] Benzodiazepines Ql (U) Negative [facility] Cocaine Ql (U) Negative [facility] Opiates Ql (U) Negative [facility] Phencyclidine Ql (U) Negative [facility] No Panel Informationon 06-11 Urine Barbiturates Screen Negative [facility] Urine Marijuana (THC) Screen Negative [facility] Provider Orderson 06-06-2024 Provider Orders [id number]#1.00OTGTIFF [facility] 06-01-2024 CNPN Telephone (NETNAV) -- ENRRIQUE MADERA ([id number]) 1965 M Date Time Provider Department 06/01/24 [...] NEEDED, # 90 tab(s), 1 Refill(s), Pharmacy: [facility], TAKE 2 TO 3 TABLETS [...] Encounter Status:Closed by QUYNH SHELBY on 06/01/24 Normal [facility] Progress Note - Nurseon 10-0 Progress Note - Nurse Patient called off ice to request that office call his insurance [employer] [phone] to assist with patient reimbursement from prescription for Butrans 15 in February that he paid for out of pocket. Called insurance [employer] to inquire about patient reimbursement for this prescription. Insurance company reports patient needs to log in to his [employer] account and locate the forms center. Product Manager reports patient should then pick and print the pdf that applies to his reimbursement claim. Product Manager reports patient then need to fill this form out and mail it to the address listed on the form before reimbursement can be processed. Called patient to notify of the above listed information. [Electronically Signed on: 05/22/2024 14:48 EDT] Ayden Lovelace RN [Verified on: 05/22/2024 14:48 EDT] Ayden Lovelace RN [facility] Ambulatory Visit Summaryon 1 Ambulatory Visit Summary [...] for choosing us for your care. Normal [facility] General Surgery Office/Clini c Noteon 05-16-2024 General [...] (COVID-19) mRNA-1273 vaccine 10/23/2020 Recorded Normal [facility] Comment on above: Result Comment: Elec tronically Signed By: CARYN QUISPE, Wilmer Dover.ella\Date and Time Signed: 05/16/24 13:16 EDT Livan 05-15-2024 CNPN Telephone (NIQ) -- ENRRIQUE MADERA ([id number]) 1965 M Date Time Provider Department 05/15/24 ALISON BRICENO During your visit today, we recorded the following information about you: Izabella Seaman 05/15/2024 4:44 PM Signed Pt called to ask CC to fax office note to Maria Del Carmen Kim for his STD. I faxed them to number provided by phone OV 04/25 AND 05/02. Dina Bauer, KRISTIN 05/16/2024 11:11 AM Signed Noted. Allergies As of Date: 05/15/2024 Noted Allergy Reaction OXYCODONE 01/26/2023 16 - Unknown Comments: Other Reaction(s): addiction/former addict. Agreeable to use during acute pain episode hospitalization Date Reviewed: 04/25/2024 Reviewed by: Lisbet Kerr OCCA - Fully Assessed Reason for Visit: Forms/letter [2511] Prescriptions as of 05/16/2024 - Teriparatide (FORTEO) [...] NEEDED, # 90 tab(s), 1 Refill(s), Pharmacy: [facility], TAKE 2 TO 3 TABLETS [...] Status:Closed by DINA BAUER on 05/16/24 Normal [facility] XR pre/post mri xrayon 05-15 XR pre/post mri xray [facility] Main [place] [address] [place] [address] MRI Report Signed Patient: Enrrique Madera MR#: [id number] 15 : 1965 Acct:[id number] Age/Sex: 58 / M ADM Date: 05/15/24 Loc: Room: Type: [facility] Attending Dr: Naila Ruiz MD Copies to: Naila Ruiz Ordering Provider: Naila Ruiz Date of Service: 05/15/24 MR/MR lumbar spine wo/w con: POST LAMINECTOMY SYNDROME ([id number]) XR/XR pre/post mri xray: POST LAMINECTOMY SYNDROME [...] Clarissa Caputo M.D.05/15/2024 4:05 PM Dictation Location: [place] [address] Transcribed By: [facility] 05/15/24 1605 Dictated By: Clarissa Caputo II, MD 05/15/24 154 Signed By: 05/15/24 1605 Normal [facility] ENRRIQUE [facility]ADERA ([id number]) 1965 M Date Time Provider Department [facility]/11[facility] During your visit today, we recorded the following information about you: Dina Bauer RN 05/11/2024 9:59 AM Signed Pt called and to give [facility] [phone] (opt Provider, Auth Dept) to give verbal prior auth for the Forteo. Called [facility] at number provided. Unable to speak with anyone, requesting provider Tax ID #. Routed to provider for review. Dina Bauer RN 05/11/2024 3:54 PM Signed Called and spoke with Kristina Rivera at [facility] regarding Forteo prior authorization. Completed prior auth verbally with Kristina. Case # [id number] Need to fax following information to [facility] Cover letter with Case # Prior Auth form - Kristina mckeon will fax to our office Office visits notes Sardar article KRISTIN Cannon Jacquelyn 05/14/2024 4:18 PM Signed Received Letter was approved. Letter is in the chart. Dina Bauer RN 05/15/2024 11:08 AM Signed Forteo has been approved by [facility]. Coverage dates 05/11/24 - 05/11/26 Provider updated Call to patient to update. No answer, left detailed message on identified VM. MC message also sent along with forteo education materials. KRISTIN Cannon, Alison Rodriguez MD 05/15/2024 5:15 PM Signed Bilal Catrachoi our common patient Forteo was approved and [...] NEEDED, # 90 tab(s), 1 Refill(s), Pharmacy: [facility], TAKE 2 TO 3 TABLETS [...] Status:Closed by DINA BAUER on 05/11/24 Normal [facility] Surgical Pathology Reporton 05-10-2024 Surgical Pathology Report [address] [address]- Surgical Pathology Report Collected Date/Time: 05/07/2024 08:48 [...] tissue and light yellow lobulated adipose tissue. Product Manager sections are submitted in three cassettes: 1: Membranous tissue 2-3: Lobulated adipose tissue (DC) DC:MCA Microscopic Description Microscopic examination performed unless gross only specified. Normal [facility] Comment on above: Performed By: #### 4 [id number] #### [facility] [address] [place] [address] Main OR Intraoperative Recor don 05-08-2024 Main OR Intraoperative Record Main OR Intraoperative Record IntraOp Document Type FT Summary Primary Physician: Wilmer RUBIN MD Finalized Date/Time: 05/08/24 13:03:51 Pt. Name: ZHOUENRRIQUE/Sex: 1965 Male Med Rec #: [id number] Physician: Wilmer RUBIN MD Financial #: [id number] Pt. Type: A Room/Bed: [place] [address] Admit/Disch: 05/07/24 05:58:52 - 05/07/24 11:12:00 Institution: Case Times FT Entry 1 Patient Times In Room 05/07/24 08:02:00 Out Room 05/07/24 09:22:00 Procedure Times Start 05/07/24 08:26:00 Stop 05/07/24 09:17:00 Anesthesia Times Start 05/07/24 08:02:00 Stop 05/07/24 09:22:00 Block Timeout w05/07/24 08:16:00 Anesthesia Last Modified By: Phuc Degroot Ii 05/07/24 09:24:43 General Comments: RIGHT TAP BLOCK DONE BY DR. ERWIN. /KRISTIN GRIMES 05/08/24 Chart opened to review and send charges LRoth CSFA Case Attendance FT Entry 1 Entry 2 Entry 3 Case Attendee Juno Haile MD, Kellen Carrasco Role Performed Anesthesiologist Surgeon - Primary BAND INSTRUMENT REPAIRER Hunter Time In 05/07/24 08:02:00 05/07/24 08:02:00 05/07/24 08:02:00 Time Out 05/07/24 09:22:00 05/07/24 09:22:00 05/07/24 09:22:00 Procedure INGUINAL HERNIA REPAIR INGUINAL HERNIA REPAIR INGUINAL HERNIA REPAIR ADULT(Right) ADULT(Right) ADULT(Right) Comments DR. ERWIN RECEIVING TELLER ASSIST Last Modified By: Phuc Degroot Ii, Alfons Ii F Letrondo, Alfons Ii F 05/07/24 09:24:45 05/07/24 09:24:45 05/07/24 09:24:45 Entry 4 Entry 5 Case Attendee Aruna Moore Alfons Ii F Role Performed Scrub - Primary Engine Pilot - Primary Time In 05/07/24 08:02:00 05/07/24 08:02:00 Time Out 05/07/24 09:22:00 05/07/24 09:22:00 Procedure INGUINAL HERNIA REPAIR INGUINAL HERNIA REPAIR ADULT(Right) ADULT(Right) Comments Last Modified By: Phuc Degroot Ii, Alfons Ii F 05/07/24 09:24:45 05/07/24 09:24:45 General Comments: ELANA Linton STUDENT IS IN ATTENDANCE. /KRISTIN GRIMESvessel master Protocols FT Pre-Care Text: Implements protective measures [...] Aruna Moore, Given Participants Phuc Degroot Ii, Juno Haile NILL MD, Danielle Matute Amber M Time [...] WITH MESH Primary Procedure Yes Primary Surgeon Wilmer RUBIN MD 05/07/24 08:26:00 Stop 05/07/24 09:17:00 Anesthesia Type General Surgical Service General Wound Class 1 - Clean Last Modified By: Tamikaluis eduardoPhuc rollins Eliezer Monet 05/07/24 09:24:47 General Case Data FT Pre-Care [...] and tissue Entry 1 Skin Integrity Intact, [place], Warm, & Skin Abnormality No Dry Outcomes Met? Yes Last Modified By: MikaylaManuelitoluis alfredo Healy 05/07/24 08:31:10 Post-Care Text: The patient is free from signs and symptoms of injury caused by extraneous objects Patient Positioning FT Pre-Care Text: Identifies physical alterations that require additional precautions for procedur (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 Normal [facility] XR Chest 2 Viewson XR Chest [...] mGy = 0 DAP = 0 Normal [facility] Discharge Instructionson Discharge Instructions Discharge Instructions ENRRIQUE [...] When: Within 7 to 10 days Where: [place], [address] [address] [facility] (1) Medications What How Much When Why Instructions Next Dose New acetaminophen-oxycodone (acetaminophen-oxycodone 325 mg-5 mg Tab) 1 Tablets By Mouth Every 6 hours as needed for Pain Acute postoperative pain of groin take with food or milk not to exceed 4000 mg acetaminophen per day Pickup at [facility] 1445 Unchanged buprenorphine as directed Transdermal Unchanged buPROPion [...] Once a day (at bedtime) Pharmacy Information [facility]: [address], [place] [id number] [phone] Test Results No qualifying data available. Allergies [...] CLEAR HERNIA-MATE [SMPL01] 05/07/2024, Unknown - SHELLEY: [phone] Education Materials Laparoscopic Inguinal Hernia Repair, Adult, [...] these instructions at home: Medicines ? Take avcf-wct-blybidt and prescription medicines only as told by [...] Take over- (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 Normal [facility] Comment on above: Result Comment: Elec tronically Signed By: Inocencio FOSTER, Yamileth Diez\.br\Date and Time Signed: 05/07/24 09:52 EDT Inpatient Patient Summaryon 05-07-2024 Inpatient Patient Summary Inpatient Patient Summary [address] [address] [facility] Clinical Discharge Instructions PERSON INFORMATION Name: ENRRIQUE MADERA PHYSICIANS Admitting Physician: Wilmer RUBIN MD Attending Physician: Wilmer RUBIN MD PCP: Hany Olivares MD Discharge Diagnosis: Indirect right inguinal hernia; Other acute postprocedural pain Comment: PATIENT EDUCATION INFORMATION Instructions: Medication Leaflets: Follow up: With: Address: When: Wilmer RUBIN [address] [place] [address], [facility] [address] [id number] [facility] (1) Within 7 to 10 days MEDICATION LIST New Medications [facility], [address], [place] [id number], [phone] acetaminophen-oxycodone (acetaminophen-oxycodone 325 mg-5 mg Tab) 1 [...] once a day (at bedtime). Comment: Velma [facility] Main OR PACU I Recordon 04-16 Main OR PACU I Record Main OR PACU I Rec ord PACU Phase I Document Type FT Summary Primary Physician: Wilmer RUBIN MD Finalized Date/Time: 05/07/24 10:28:09 Pt. Name: ZHOUENRRIQUE/Sex: 1965 Male Med Rec #: [id number] Physician: Wilmer RUBIN MD Financial #: [id number] Pt. Type: A Room/Bed: Admit/Disch: 05/07/24 05:58:52 - Institution: Case Times [...] I Outcomes Met? Yes Last Modified By: Mark FOSTER, Estelita Foster 05/07/24 10:27:29 Post-Care Text: The patient demonstrates [...] 10:27 Estelita Flores RN 05/07/24 10:[address] [facility] Main OR PACU II Recordon Main OR PACU II Record Main OR PACU II Record PACU Phase II Document Type FT Summary Primary Physician: Wilmer RUBIN MD Finalized Date/Time: 05/07/24 11:12:51 Pt. Name: ENRRIQUE MADERA/Sex: 1965 Male Med Rec #: [id number] Physician: Wilmer RUBIN MD Financial #: [id number] Pt. Type: A Room/Bed: [place] [address] Admit/Disch: 05/07/24 05:58:52 - Institution: Case Times [...] Signed By: Yamileth Painter RN 05/07/24 11:12 [facility] Main OR Preoperative Recordo n 05-07-2024 Main OR Preoperative Record Main OR Preoperative Record PreOp Document Type FT Summary Primary Physician: Wilmer RUBIN MD Finalized Date/Time: 05/07/24 08:57:29 Pt. Name: ENRRIQUE MADERA/Sex: 1965 Male Med Rec #: [id number] Physician: Wilmer RUBIN MD Financial #: [id number] Pt. Type: A Room/Bed: [facility] Admit/Disch: 05/07/24 05:58:52 - Institution: Case Times [...] By: Phuc Degroot Ii 05/07/24 08:57 Normal [facility] Operative Reporton Operative Report Operative Report SURGERY [...] Room in good condition. Wilmer Rubin M.D. [facility] ca Dictated: 05/07/2024 [id number] Transcribed: 05/07/2024 cc: Normal [facility] Comment on above: Result Comment: Elec tronically Signed By: Wilmer RUBIN MD\.br\Date and Time Signed: 05/07/24 15:34 EDT Outpatient Surgery Discharge Instructionon 05-07-2024 Outpatient Surgery Discharge Instruction Outpatient Surgery Discharge Instruction [place] [address] Patient Discharge Instructions PERSON INFORMATION Name: ENRRIQUE MADERA Date of : 1965 Current Date: 05/07/2024 09:30:03 PHYSICIANS Admitting Physician: Wilmer RUBIN MD Discharge Diagnosis: Indirect right inguinal hernia; Other acute postprocedural pain NERRIQUE MADERA has been given the following list [...] Date Follow up: With: Address: When: Wil[address], [address], [place] [phone] [facility] (1) Within 7 to 10 days Pharmacy Information: You may receive a survey from [employer] asking you to rate your care experience. Your feedback is important and will help us understand what we do well and how we can improve the quality of care we provide to you, your loved ones and our community. It?s an honor to serve you. Thank you for choosing [facility] HERE ARE THE MEDICATION CHANGES THAT OCCURRED DURING YOUR HOSPITAL STAY New Medications [facility], [address], [place] [id number], [phone] acetaminophen-oxycodone (acetaminophen-oxycodone 325 mg-5 mg Tab) 1 [...] bedtime). PATIENT EDUCATION INFORMATION Instructions: Medication Leaflets: [facility] Proceduralon 05-07-2024 Procedural Procedural Patient: ENRRIQUE [...] Using maximal sterile barrier technique per current [facility] guidelines including hand hygeine, Guidance (Ultrasound used [...] The patient tolerated the procedure as expected. 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 Resolved. Comments: 04/25/2024 EDT 9:52 EDT - Tosin Agustin LPN Outside Source Comment: Overview: Added automatically from request for surgery [id number] Family History: Primary malignant neoplasm of lung Mother Procedure history: Decompression laminectomy of lumbar spine x2 (7670696145). History of ankle surgery (7666261672). kyphoplasty of fracture of lumbar spine (3380700585). Social History Social & Psychosocial Habits Alcohol [...] Systolic Blood (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 Normal [facility] BMPon 05-03-2024 Anion gap [Moles/Vol] 5 mmol/L Low 6-16 [facility] Comment on above: Performed By: #### 2 [id number] #### [facility] [address] [place] [address] Calcium [Mass/Vol] 8.8 mg/dL Low 8.9-11.1 [facility] Comment on above: Performed By: #### 2 [id number] #### [facility] [address] [place] [address] Chloride [Moles/Vol] 104 mmol/L Normal 101-111 [facility] Comment on above: Performed By: #### 2 188912 #### [facility] [address] [place] [address] CO2 [Moles/Vol] 32 mmol/L High 21-31 [facility] Comment on above: Performed By: #### 2 679009 #### [facility] [address] [place] [address] Creatinine [Mass/Vol] 0.8 mg/dL Normal 0.5-1.3 [facility] Comment on above: Performed By: #### 2 772504 #### [facility] [address] [place] [address] Glucose [Mass/Vol] 90 mg/dL Normal 55-199 [facility] Comment on above: Performed By: #### 2 013733 #### [facility] [address] [place] [address] Potassium [Moles/Vol] 4.2 mmol/L Normal 3.5-5.3 [facility] Comment on above: Performed By: #### 2 537874 #### [facility] [address] [place] [address] Sodium [Moles/Vol] 137 mmol/L Normal 135-145 [facility] Comment on above: Performed By: #### 2 689429 #### [facility] [address] [place] [address] Urea nitrogen [Mass/Vol] 10 mg/dL Normal 5-21 [facility] Comment on above: Performed By: #### 2 483729 #### [facility] [address] [place] [address] Urea nitrogen/Creatinine [Mass ratio] 12 No Units Normal 10-20 [facility] Comment on above: Performed By: #### 2 535240 #### [facility] [address] [place] [address] CBC w/ Auto Diffon 4 Basophils/100 WBC (Bld) 0.5 % Normal 0.0-2.0 [facility] Comment on above: Performed By: #### 2 116013 #### [facility] [address] [place] [address] Basophils/Leukocytes Auto (Bld) [Pure # fraction] 0.0 E9/L Normal 0.0-0.2 [facility] Comment on above: Performed By: #### 2 696032 #### [facility] [address] [place] [address] Eosinophils (Bld) [#/Vol] 0.1 E9/L Normal 0.0-0.5 [facility] Comment on above: Performed By: #### 2 360058 #### [facility] [address] [place] [address] Eosinophils/100 WBC (Bld) 1.9 % Normal 0.0-8.0 [facility] Comment on above: Performed By: #### 2 887443 #### [facility] [address] [place] [address] Erythrocyte distribution width (RBC) [Ratio] 14.7 % High 10.9-14.2 [facility] Comment on above: Performed By: #### 2 689687 #### [facility] [address] [place] [address] Hematocrit (Bld) [Volume fraction] 39.3 % Normal 37.7-49.0 [facility] Comment on above: Performed By: #### 2 803438 #### [facility] [address] [place] [address] Hemoglobin (Bld) [Mass/Vol] 13.5 g/dL Normal 13.5-17.5 [facility] Comment on above: Performed By: #### 2 268817 #### [facility] [address] [place] [address] Lymphocytes (Bld) [#/Vol] 1.4 E9/L Normal 1.0-4.0 [facility] Comment on above: Performed By: #### 2 105464 #### [facility] [address] [place] [address] Lymphocytes/100 WBC (Bld) 19.2 % Normal 14.0-50.0 [facility] Comment on above: Performed By: #### 2 291362 #### [facility] [address] [place] [address] MCH (RBC) [Entitic mass] 32.3 pg Normal 27.0-34.0 [facility] Comment on above: Performed By: #### 2 388036 #### [facility] [address] [place] [address] MCHC (RBC) [Mass/Vol] 34.4 g/dL Normal 31.4-36.0 [facility] Comment on above: Performed By: #### 2 074473 #### [facility] [address] [place] [address] MCV (RBC) [Entitic vol] 93.8 fL Normal 80.0-100.0 [facility] Comment on above: Performed By: #### 2 384567 #### [facility] [address] [place] [address] Monocytes (Bld) [#/Vol] 0.7 E9/L Normal 0.2-1.0 [facility] Comment on above: Performed By: #### 2 532006 #### [facility] [address] [place] [address] Neutrophils (Bld) [#/Vol] 5.2 E9/L Normal 2.0-7.5 [facility] Comment on above: Performed By: #### 2 762777 #### [facility] [address] [place] [address] Neutrophils/100 WBC (Bld) 69.0 % Normal 36.0-75.0 [facility] Comment on above: Performed By: #### 2 507597 #### [facility] [address] [place] [address] Platelet 294.0 E9/L Normal 150.0-500.0 [facility] Comment on above: Performed By: #### 2 797364 #### [facility] [address] [place] [address] Platelet mean volume (Bld) [Entitic vol] 7.3 fL Normal 6.4-10.8 [facility] Comment on above: Performed By: #### 2 540551 #### [facility] [address] [place] [address] RBC (Bld) [#/Vol] 4.2 E12/L Low 4.3-5.9 [facility] Comment on above: Performed By: #### 2 345144 #### [facility] [address] [place] [address] WBC corrected for nucl RBC Auto (Bld) [#/Vol] 7.5 E9/L Normal 4.0-11.0 [facility] Comment on above: Performed By: #### 2 567307 #### [facility] [address] [place] [address] CHEMISTRYOrdered By: SYSTEM SYSTEM on 05-03-2024 Anion [...] 05-03-2024 eGFR 103 mL/min/1.73 m2 Normal >=59 [facility] Comment on above: Performed By: #### 1 [id number] ####[facility] [address] [place] [address] Livan 05-02-2024 KATYA Telephone (NIQ) -- ENRRIQUE MADERA ([id number]) 1965 M Date Time Provider Department 05/02/24 ALISON BRICENO During your visit today, we recorded the following information about you: Dea Wolf 05/02/2024 4:40 PM Signed [facility] [phone] phone number Dina BauerKRISTIN 05/03/2024 1:20 PM Signed Patient notified by [...] NEEDED, # 90 tab(s), 1 Refill(s), Pharmacy: [facility], TAKE 2 TO 3 TABLETS BY MOUTH [...] 03/23/2024 Encounter Status:Closed by DINA BAUER on 05/03/24 Normal [facility] BD DXA - AXIAL SKELETONon BD DXA - AXIAL SKELETON * * *Final Report* * * DATE OF EXAM: Apr 30 2024 10:47AM LUX 0804 - BD DXA - AXIAL SKELETON / PROCEDURE REASON: Compression fracture of body of thoracic vertebra (HCC) * * * * Physician Interpretation * * * * EXAMINATION: DXA BONE DENSITOMETRY BD DXA - AXIAL SKELETON, BD DXA TRABECLR BONE SCORE (TBS) PATIENT DEMOGRAPHICS: Age: 58 years, Gender: Male SCANNER INFORMATION: DXA Model: [employer] [id number] Date Scanned: 04/30/2024 10:47 AM CLINICAL HISTORY: [...] had a previous bone density in the [facility] or the previous bone density was performed on a different DXA machine (new, updated model or different location) within the [facility]. VERTEBRAL FRACTURE ASSESSMENT Not [...] FOR MORE INFORMATION ABOUT DIAGNOSIS AND TREATMENT: [facility] Osteoporosis and Metabolic Bone Disease:? www.ccf.org/arthritis/oste o National Osteoporosis Foundation:? www.nof.org International Society of Clinical Densitometry www.iscd.org Head Insulation Board Saw Operator: HARRIETT Transcribe Date/Time: Apr 30 2024 11:24A Dictated by : Guicho SAMANO MD This examination was interpreted and the report reviewed and electronically signed by: Guicho SAMANO MD on Apr 30 2024 11:27AM EST [id number] [facility] BD DXA TRABECLR BONE SCORE ( [...] years, Gender: Male SCANNER INFORMATION: DXA Model: [employer] [id number] Date Scanned: 04/30/2024 10:47 AM CLINICAL HISTORY: [...] had a previous bone density in the [facility] or the previous bone density was [...] FOR MORE INFORMATION ABOUT DIAGNOSIS AND TREATMENT: [facility]osis and Metabolic Bone Disease:? www.ccf.org/arthritis/oste o National Osteoporosis Foundation:? www.nof.org International Society of Clinical Densitometry www.iscd.org Head Insulation Board Saw Operator: HARRIETT Transcribe Date/Time: Apr 30 2024 11:24A Dictated by : Guicho SAMANO MD This examination was interpreted and the report reviewed and electronically signed by: Guicho SAMANO MD on Apr 30 2024 11:27AM EST [id number] -[id number] [facility] ENRRIQUE MADERA ([id number]) 1965 M Date Time Provider Department 04/30/24 ALISON BRICENO During your visit today, we recorded the following information about you: Dea Wolf 04/30/2024 5:16 PM Signed Received outside imaging/report: CD No Report Yes Type of study MRI Thoracic wo con Date of study 04/27/24 [employer] msg sent to pt to make arrangement [...] paged re this matter. Pls call back [phone] Dina Bauer, KRISTIN 05/02/2024 2:42 PM Signed [...] NEEDED, # 90 tab(s), 1 Refill(s), Pharmacy: [facility], TAKE 2 TO 3 TABLETS [...] Status:Closed by DINA BAUER on 05/02/24 Normal [facility] DXA Femur [T-score] Bone sabina valdes 04-30-2024 [...] years, Gender: Male SCANNER INFORMATION: DXA Model: [employer] [id number] Date Scanned: 04/30/2024 10:47 AM CLINICAL HISTORY: [...] had a previous bone density in the [facility] or the previous bone density was performed on a different DXA machine (new, updated model or different location) within the [facility]. VERTEBRAL FRACTURE ASSESSMENT Not performed. TRABECULAR BONE ASSESSMENT TBS score: 1.156 Bone micro-architecture: L1-L4: degraded (< or = 1.230) [facility] Provider, Jammie Patten - 04/30/2024 * * *Final Report* * [...] years, Gender: Male SCANNER INFORMATION: DXA Model: [employer] [id number] Date Scanned: 04/30/2024 10:47 AM CLINICAL HISTORY: [...] had a previous bone density in the [facility] or the previous bone density was performed on a different DXA machine (new, updated model or different location) within the [facility]. VERTEBRAL FRACTURE ASSESSMENT Not [...] FOR MORE INFORMATION ABOUT DIAGNOSIS AND TREATMENT: [facility] Metabolic [facility] Disease:? www.ccf.org/arthritis/oste o National Osteoporosis Foundation:? www.nof.org International Society of Clinical Densitometry www.iscd.org Head Insulation Board Saw Operator: HARRIETT Transcribe Date/Time: Apr 30 2024 11:24A Dictated by : Guicho SAMANO MD This examination was interpreted and the report reviewed and electronically signed by: Guicho SMAANO MD on Apr 30 2024 11:27AM EST [facility] DXA Skeletal system.axial Vi ews for bone [...] years, Gender: Male SCANNER INFORMATION: DXA Model: [employer] [id number] Date Scanned: 04/30/2024 10:47 AM CLINICAL HISTORY: [...] had a previous bone density in the [facility] or the previous bone density was performed on a different DXA machine (new, updated model or different location) within the [facility]. VERTEBRAL FRACTURE ASSESSMENT Not performed. TRABECULAR BONE ASSESSMENT TBS score: 1.156 Bone micro-architecture: L1-L4: degraded (< or = 1.230) [facility] Provider, [facility] - 04/30/2024 * * *Final Report* * * DATE OF EXAM: Apr 30 2024 10:47AM JEAN MARIE [facility] - BD DXA - AXIAL SKELETON / PROCEDURE REASON: Compression fracture of body of thoracic vertebra (HCC) * * * * Physician Interpretation * * * * EXAMINATION: DXA BONE DENSITOMETRY BD DXA - AXIAL SKELETON, BD DXA TRABECLR BONE SCORE (TBS) PATIENT DEMOGRAPHICS: Age: 58 years, Gender: Male SCANNER INFORMATION: DXA Model: [employer] [id number] Date Scanned: 04/30/2024 10:47 AM CLINICAL HISTORY: [...] had a previous bone density in the [facility] or the previous bone density was performed on a different DXA machine (new, updated model or different location) within the [facility]. VERTEBRAL FRACTURE ASSESSMENT Not [...] FOR MORE INFORMATION ABOUT DIAGNOSIS AND TREATMENT: [facility] Disease:? www.ccf.org/arthritis/oste o National Osteoporosis Foundation:? www.nof.org International Society of Clinical Densitometry www.iscd.org Head Insulation Board Saw Operator: HARRIETT Transcribe Date/Time: Apr 30 2024 11:24A Dictated by : Guicho SAMANO MD This examination was interpreted and the report reviewed and electronically signed by: Guicho SAMANO MD on Apr 30 2024 11:27AM [facility] No Panel InformationOrdered By: [facility] Provider on 04-30-2024 LOWEST T-SCORE -2.7 [facility] No Panel Informationon 04-30 IMPRESSION: THE LOWEST [...] FOR MORE INFORMATION ABOUT DIAGNOSIS AND TREATMENT: [facility]abolic [facility] Disease:? www.ccf.org/arthritis/oste o National Osteoporosis Foundation:? www.nof.org International Society of Clinical Densitometry www.iscd.org Head Insulation Board Saw Operator: HARRIETT Transcribe Date/Time: Apr 30 2024 11:24A Dictated by : Guicho SAMANO MD This examination was interpreted and the report reviewed and electronically signed by: Guicho SAMANO MD on Apr 30 2024 11:27AM [facility] RADIOLOG[facility] Radiology Study observation (narrative) [facility] CALCIUM, 24 HR URINEon 04-29 Calcium (24H U) [Mass/Time] 399.6 mg/24 hr High 100.0-300.0 [facility] Comment on above: Order Comment: Rosalie best Type: BLOOD SPECIMEN Ordering Facility: [facility] Address: [address] [place] [address] Performed By: #### 2 4321-2 #### [facility] CLIA [id number] [address] [place], [place] [address] [address] [address] [place] PERIOD (HRS) 24 hr Normal [facility] Comment on above: Order Comment: Rosalie best Type: BLOOD SPECIMEN Ordering Facility: [facility] Address: [address] [place] [address] Performed By: #### 2 4321-2 #### [facility] CLIA [id number] [address] [place] [address] [place] Specimen volume (24H U) 3.7 L Normal [facility] Comment on above: Order Comment: Speci men Type: BLOOD SPECIMEN Ordering Facility: [facility] Address: [address] [place] [address] Performed By: #### 2 4321-2 #### [facility] CLIA [id number] [address] [place] [address] [place] Ambulatory Visit Summaryon 0 04-27-2024 Ambulatory Visit Summary Ambulatory Visit Summary ENRRIQUE MADERA :1965 Visit Date:04/27/2024 Ambulatory Visit Instructions Your [...] you for choosing us for your care. [facility] 04-26-2024 [facility] Telephone (NIQ) -- ENRRIQUE MADERA ([id number]) 1965 M Date Time Provider Department 04/26/24 ALISON BRICENO NIEvgeny During your visit today, we recorded the following information about you: Dea Wolf 04/26/2024 4:24 PM Signed Received the following record(s) via fax. -DXA Bone Densitometry Report Date 04/24/24 Record(s) scanned into pt's chart. Dina Joshua, KRISTIN 04/30/2024 3:47 PM Signed Noted. Patient to [...] NEEDED, # 90 tab(s), 1 Refill(s), Pharmacy: [facility], TAKE 2 TO 3 TABLETS [...] Encounter Status:Closed by DINA BAUER on 05/02/24 [facility] CNOVon 04-25-2024 CNOV Office Visit (SPNSMN ) -- ZHOUENRRIQUE MOREJON ([id number]) 1965 M Date Time Provider Department 04/25/24 [...] undergo repeat testing of urine analysis per [facility]. He underwent DEXA scan which demonstrated osteopenia/borderline [...] NEEDED, # 90 tab(s), 1 Refill(s), Pharmacy: [facility], TAKE 2 TO 3 TABLETS [...] thankful fo (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 Normal [facility] Outside Recordson 04-24-2024 Outside Records [id number] [facility] HISTORY PHYSICALon HISTORY PHYSICAL HNO ID: [id number] Author: TACO BRADSHAW MD Service: ? Author [...] Comment: Added automatically from request for surgery [id number] 03/01/2024: Chronic pain 03/01/2024: Depressive disorder 03/01/2024: [...] NEEDED, # 90 tab(s), 1 Refill(s), Pharmacy: [facility], TAKE 2 TO 3 TABLETS BY MOUTH [...] DATE: April 23, 2024 TIME: 7:23 AM [facility] OPERATIVE NOon 04-23-2024 OPERATIVE NO HNO ID: [id number] Author: TACO BRADSHAW MD Service: ? Author Type: Physician Type: Operative Report Filed: 04/23/2024 15:37 Note Text: OPERATIVE/PROCEDURE REPORT LOG ID: [id number] Surgery/Procedure Date: 04/23/2024 Surgeon: Taco Bradshaw MD Hunter: none Procedure(s):Operation: right L3-L4 Transforaminal epidural steroid [...] in last few months Spine injection at [facility], last 02/[address] Portillo 07/2023, previous surgery by Dr Walsh PROCEDURE: After obtaining both verbal and written informed consent, the patient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 [address] Performed By: #### 2 4321-2 #### [facility] CLIA [id number] [address] [place] [address] [place] Calcium [Mass/Vol] 8.8 mg/dL Normal 8.5-10.2 [facility] Comment on above: Order Comment: Speci men Type: BLOOD SPECIMEN Ordering Facility: [facility] Address: [address] [place] [address] Performed By: #### 2 4321-2 #### [facility] CLIA [id number] [address] [place] [address] [place] Chloride [Moles/Vol] 100 mmol/L Normal 98-107 [facility] Comment on above: Order Comment: Speci men Type: BLOOD SPECIMEN Ordering Facility: [facility] Address: [address] [place] [address] Performed By: #### 2 4321-2 #### [facility] CLIA [id number] [address] [place] [address] [place] CO2 [Moles/Vol] 25 mmol/L Normal 22-30 [facility] Comment on above: Order Comment: Speci men Type: BLOOD SPECIMEN Ordering Facility: [facility] Address: [address] [place] [address] Performed By: #### 2 4321-2 #### [facility] CLIA [id number] [address] [place] [address] [place] Creatinine [Mass/Vol] 0.85 mg/dL Normal 0.73-1.22 [facility] Comment on above: Order Comment: Speci men Type: BLOOD SPECIMEN Ordering Facility: [facility] Address: [address] [place] [address] Performed By: #### 2 4321-2 #### [facility] CLIA [id number] [address] [place] [address] [place] Creatinine and Glomerular filtration rate.predicted panel (S/P/Bld) 101 mL/min/1.73m??? Normal >=60 [facility] Comment on above: Order Comment: Speci men Type: BLOOD SPECIMEN Ordering Facility: [facility] Address: [address] [place] [address] Result Comment: Lia mated Glomerular Filtration Rate [...] GFR. Performed By: #### 2 4321-2 #### [facility] CLIA [id number] [address] [place] [address] [place] Glucose [Mass/Vol] 103 mg/dL High 74-99 [facility] Comment on above: Order Comment: Speci men Type: BLOOD SPECIMEN Ordering Facility: [facility] Address: [address] [place] [address] Result Comment: The [employer] (ADA) provides guidance for cutoff [...] Standards of Medical Care in Diabetes 2016, [employer]. Diabetes Care. 2016.39(Suppl 1). Performed By: #### 2 4321-2 #### [facility] CLIA [id number] [address] [place] [address] [place] Potassium [Moles/Vol] 4.5 mmol/L Normal 3.7-5.1 [facility] Comment on above: Order Comment: Speci men Type: BLOOD SPECIMEN Ordering Facility: [facility] Address: [address] [place] [address] Performed By: #### 2 4321-2 #### [facility] CLIA [id number] [address] [place] [address] [place] Sodium [Moles/Vol] 133 mmol/L Low 136-144 [facility] Comment on above: Order Comment: Nancii men Type: BLOOD SPECIMEN Ordering Facility: [facility] Address: [address] [place] [address] Performed By: #### 2 4321-2 #### [facility] CLIA [id number] [address] [place] [address] [place] Urea nitrogen [Mass/Vol] 12 mg/dL Normal 9-24 [facility] Comment on above: Order Comment: Speci men Type: BLOOD SPECIMEN Ordering Facility: [facility] Address: [address] [place] [address] Performed By: #### 2 4321-2 #### [facility] CLIA [id number] [address] [place] [address] [place] Anion gap [Moles/Vol] 10 mmol/L Normal 8-15 [facility] Comment on above: Order Comment: Speci men Type: BLOOD SPECIMEN Ordering Facility: [facility] Address: [address] [place] [address] Performed By: #### 5 8410-2 #### [facility] CLIA [id number] [address] [place] [address] [place] Calcium [Mass/Vol] 8.6 mg/dL Normal 8.5-10.2 [facility] Comment on above: Order Comment: Speci men Type: BLOOD SPECIMEN Ordering Facility: [facility] Address: [address] [place] [address] Performed By: #### 5 8410-2 #### [facility] CLIA [id number] [address] [place] [address] [place] Chloride [Moles/Vol] 100 mmol/L Normal 98-107 [facility] Comment on above: Order Comment: Speci men Type: BLOOD SPECIMEN Ordering Facility: [facility] Address: [address] [place] [address] Performed By: #### 5 8410-2 #### [facility] CLIA [id number] [address] [place] [address] [place] CO2 [Moles/Vol] 25 mmol/L Normal 22-30 [facility] Comment on above: Order Comment: Speci men Type: BLOOD SPECIMEN Ordering Facility: [facility] Address: [address] [place] [address] Performed By: #### 5 8410-2 #### [facility] CLIA [id number] [address] [place] [address] [place] Creatinine [Mass/Vol] 0.78 mg/dL Normal 0.73-1.22 [facility] Comment on above: Order Comment: Speci men Type: BLOOD SPECIMEN Ordering Facility: [facility] Address: [address] [place] [address] Performed By: #### 5 8410-2 #### [facility] CLIA [id number] [address] [place] [address] [place] Creatinine and Glomerular filtration rate.predicted panel (S/P/Bld) 104 mL/min/1.73m??? Normal >=60 [facility] Comment on above: Order Comment: Speci men Type: BLOOD SPECIMEN Ordering Facility: [facility] Address: [address] [place] [address] Result Comment: Lia mated Glomerular Filtration Rate [...] accurately reflect actual GFR. Performed By: #### 5 8410-2 #### [facility] CLIA [id number] [address] [place] [address] [place] Glucose [Mass/Vol] 110 mg/dL High 74-99 [facility] Comment on above: Order Comment: Speci men Type: BLOOD SPECIMEN Ordering Facility: [facility] Address: [address] [place] [address] Result Comment: The [employer] Diabetes Association (ADA) provides guidance for cutoff [...] Standards of Medical Care in Diabetes 2016, [employer]. Diabetes Care. 2016.39(Suppl 1). Performed By: #### 5 8410-2 #### [facility] CLIA [id number] [address] [place] [address] [place] Potassium [Moles/Vol] 4.3 mmol/L Normal 3.7-5.1 [facility] Comment on above: Order Comment: Speci men Type: BLOOD SPECIMEN Ordering Facility: [facility] Address: [address] [place] [address] Performed By: #### 5 8410-2 #### [facility] CLIA [id number] [address] [place] [address] [place] Sodium [Moles/Vol] 135 mmol/L Low 136-144 [facility] Comment on above: Order Comment: Rosalie best Type: BLOOD SPECIMEN Ordering Facility: [facility] Address: [address] [place] [address] Performed By: #### 5 8410-2 #### [facility] CLIA [id number] [address] [place] [address] [place] Urea nitrogen [Mass/Vol] 13 mg/dL Normal 9-24 [facility] Comment on above: Order Comment: Speci men Type: BLOOD SPECIMEN Ordering Facility: [facility] Address: [address] [place] [address] Performed By: #### 5 8410-2 #### [facility] CLIA [id number] [address] [place] [address] [place] Anion gap [Moles/Vol] 9 mmol/L Normal 8-15 [facility] Comment on above: Order Comment: Speci men Type: BLOOD SPECIMEN Ordering Facility: [facility] Address: [address] [place] [address] Performed By: #### 5 8410-2 #### [facility] CLIA [id number] [address] [place] [address] [place] Calcium [Mass/Vol] 8.2 mg/dL Low 8.5-10.2 [facility] Comment on above: Order Comment: Speci men Type: BLOOD SPECIMEN Ordering Facility: [facility] Address: [address] [place] [address] Performed By: #### 5 8410-2 #### [facility] CLIA [id number] [address] [place] [address] [place] Chloride [Moles/Vol] 95 mmol/L Low 98-107 [facility] Comment on above: Order Comment: Speci men Type: BLOOD SPECIMEN Ordering Facility: [facility] Address: [address] [place] [address] Performed By: #### 5 8410-2 #### [facility] CLIA [id number] [address] [place] [address] [place] CO2 [Moles/Vol] 23 mmol/L Normal 22-30 [facility] Comment on above: Order Comment: Speci men Type: BLOOD SPECIMEN Ordering Facility: [facility] Address: [address] [place] [address] Performed By: #### 5 8410-2 #### [facility] CLIA [id number] [address] [place] [address] [place] Creatinine [Mass/Vol] 0.76 mg/dL Normal 0.73-1.22 [facility] Comment on above: Order Comment: Speci men Type: BLOOD SPECIMEN Ordering Facility: [facility] Address: [address] [place] [address] Performed By: #### 5 8410-2 #### [facility] CLIA [id number] [address] [place] [address] [place] [facility] Creatinine and Glomerular filtration rate.predicted panel (S/P/Bld) 105 mL/min/1.73m??? Normal >=60 [facility] Comment on above: Order Comment: Rosalie best Type: BLOOD SPECIMEN Ordering Facility: [facility] Address: [address] [place] [address] Result Comment: Lia mated Glomerular Filtration Rate [...] accurately reflect actual GFR. Performed By: #### 5 8410-2 #### [facility] CLIA [id number] [address] [place] [address] [place] [facility] Glucose [Mass/Vol] 88 mg/dL Normal 74-99 [facility] Comment on above: Order Comment: Rosalie best Type: BLOOD SPECIMEN Ordering Facility: [facility] Address: [address] [place] [address] Result Comment: The [employer] Diabetes Association (ADA) provides guidance for cutoff [...] Standards of Medical Care in Diabetes 2016, [employer]. Diabetes Care. 2016.39(Suppl 1). Performed By: #### 5 8410-2 #### [facility] CLIA [id number] [address] [place] [address] [place] Potassium [Moles/Vol] 4.6 mmol/L Normal 3.7-5.1 [facility] Comment on above: Order Comment: Speci men Type: BLOOD SPECIMEN Ordering Facility: [facility] Address: [address] [place] [address] Performed By: #### 5 8410-2 #### [facility] CLIA [id number] [address] [place] [address] [place] Sodium [Moles/Vol] 127 mmol/L Low 136-144 [facility] Comment on above: Order Comment: Speci men Type: BLOOD SPECIMEN Ordering Facility: [facility] Address: [address] [place] [address] Performed By: #### 5 8410-2 #### [facility] CLIA [id number] [address] [place] [address] [place] Urea nitrogen [Mass/Vol] 13 mg/dL Normal 9-24 [facility] Comment on above: Order Comment: Speci men Type: BLOOD SPECIMEN Ordering Facility: [facility] Address: [address] [place] [address] Performed By: #### 5 8410-2 #### [facility] CLIA [id number] [address] [place] [address] [place] Anion gap [Moles/Vol] 9 mmol/L Normal 8-15 [facility] Comment on above: Order Comment: Speci men Type: BLOOD SPECIMEN Ordering Facility: [facility] Address: [address] [place] [address] Performed By: #### 2 4321-2 #### [facility] CLIA [id number] [address] [place] [address] [place] Calcium [Mass/Vol] 8.4 mg/dL Low 8.5-10.2 [facility] Comment on above: Order Comment: Speci men Type: BLOOD SPECIMEN Ordering Facility: [facility] Address: [address] [place] [address] Performed By: #### 2 4321-2 #### [facility] CLIA [id number] [facility] [place] [address] [place] Chloride [Moles/Vol] 93 mmol/L Low 98-107 [facility] Comment on above: Order Comment: Speci men Type: BLOOD SPECIMEN Ordering Facility: [facility] Address: [address] [place] [address] Performed By: #### 2 4321-2 #### [facility] CLIA [id number] [address] [place] [address] [place] CO2 [Moles/Vol] 24 mmol/L Normal 22-30 [facility] Comment on above: Order Comment: Speci men Type: BLOOD SPECIMEN Ordering Facility: [facility] Address: [address] [place] [address] Performed By: #### 2 4321-2 #### [facility] CLIA [id number] [address] [place] [address] [place] Creatinine [Mass/Vol] 0.74 mg/dL Normal 0.73-1.22 [facility] Comment on above: Order Comment: Speci men Type: BLOOD SPECIMEN Ordering Facility: [facility] Address: [address] [place] [address] Performed By: #### 2 4321-2 #### [facility] CLIA [id number] [address] [place] [address] [place] Creatinine and Glomerular filtration rate.predicted panel (S/P/Bld) 106 mL/min/1.73m??? Normal >=60 [facility] Comment on above: Order Comment: Speci men Type: BLOOD SPECIMEN Ordering Facility: [facility] Address: [address] [place] [address] Result Comment: Lia mated Glomerular Filtration Rate [...] GFR. Performed By: #### 2 4321-2 #### [facility] CLIA [id number] [address] [place] [address] [place] Glucose [Mass/Vol] 101 mg/dL High 74-99 [facility] Comment on above: Order Comment: Speci men Type: BLOOD SPECIMEN Ordering Facility: [facility] Address: [address] [place] [address] Result Comment: The [employer] (ADA) provides guidance for cutoff [...] Standards of Medical Care in Diabetes 2016, [employer]. Diabetes Care. 2016.39(Suppl 1). Performed By: #### 2 4321-2 #### [facility] CLIA [id number] [address] [place] [address] [place] Potassium [Moles/Vol] 4.7 mmol/L Normal 3.7-5.1 [facility] Comment on above: Order Comment: Speci men Type: BLOOD SPECIMEN Ordering Facility: [facility] Address: [address] [place] [address] Performed By: #### 2 4321-2 #### [facility] CLIA [id number] [address] [place] [address] [place] Sodium [Moles/Vol] 126 mmol/L Low 136-144 [facility] Comment on above: Order Comment: Speci men Type: BLOOD SPECIMEN Ordering Facility: [facility] Address: [address] [id number] Performed By: #### 2 4321-2 #### [facility] CLIA [id number] [address] [place] [address] [place] Urea nitrogen [Mass/Vol] 15 mg/dL Normal 9-24 [facility] Comment on above: Order Comment: Speci men Type: BLOOD SPECIMEN Ordering Facility: [facility] Address: [address] [place] [address] Performed By: #### 2 4321-2 #### [facility] CLIA [id number] [address] [place] [address] [place] Anion gap [Moles/Vol] 8 mmol/L Normal 8-15 [facility] Comment on above: Order Comment: Speci men Type: BLOOD SPECIMEN Ordering Facility: [facility] Address: [address] [place] [address] Performed By: #### 2 4321-2 #### [facility] CLIA [id number] [address] [place] [address] [place] Calcium [Mass/Vol] 8.5 mg/dL Normal 8.5-10.2 [facility] Comment on above: Order Comment: Speci men Type: BLOOD SPECIMEN Ordering Facility: [facility] Address: [address] [place] [address] Performed By: #### 2 4321-2 #### [facility] CLIA [id number] [address] [id number] [place] Chloride [Moles/Vol] 91 mmol/L Low 98-107 [facility] Comment on above: Order Comment: Speci men Type: BLOOD SPECIMEN Ordering Facility: [facility] Address: [address] [place] [address] Performed By: #### 2 4321-2 #### [facility] CLIA [id number] [address] [place] [address] [place] CO2 [Moles/Vol] 24 mmol/L Normal 22-30 [facility] Comment on above: Order Comment: Speci men Type: BLOOD SPECIMEN Ordering Facility: [facility] Address: [address] [place] [address] Performed By: #### 2 4321-2 #### [facility] CLIA [id number] [address] [place] [address] [place] Creatinine [Mass/Vol] 0.80 mg/dL Normal 0.73-1.22 [facility] Comment on above: Order Comment: Speci men Type: BLOOD SPECIMEN Ordering Facility: [facility] Address: [address] [place] [address] Performed By: #### 2 4321-2 #### [facility] CLIA [id number] [address] [place] [address] [place] Creatinine and Glomerular filtration rate.predicted panel (S/P/Bld) 103 mL/min/1.73m??? Normal >=60 [facility] Comment on above: Order Comment: Speci men Type: BLOOD SPECIMEN Ordering Facility: [facility] Address: [address] [place] [address] Result Comment: Lia mated Glomerular Filtration Rate [...] GFR. Performed By: #### 2 4321-2 #### [facility] CLIA [id number] [address] [place] [address] [place] Glucose [Mass/Vol] 111 mg/dL High 74-99 [facility] Comment on above: Order Comment: Speci men Type: BLOOD SPECIMEN Ordering Facility: [facility] Address: [address] [place] [address] Result Comment: The [employer] Diabetes [employer] (ADA) provides guidance for cutoff [...] Standards of Medical Care in Diabetes 2016, [employer]. Diabetes Care. 2016.39(Suppl 1). Performed By: #### 2 4321-2 #### [facility] CLIA [id number] [address] [place] [address] [place] Potassium [Moles/Vol] 4.7 mmol/L Normal 3.7-5.1 [facility] Comment on above: Order Comment: Speci men Type: BLOOD SPECIMEN Ordering Facility: [facility] Address: [address] [place] [address] Performed By: #### 2 4321-2 #### [facility] CLIA [id number] [address] [place] [address] [place] Sodium [Moles/Vol] 123 mmol/L Low 136-144 [facility] Comment on above: Order Comment: Speci men Type: BLOOD SPECIMEN Ordering Facility: [facility] Address: [address] [place] [address] Performed By: #### 2 4321-2 #### [facility] CLIA [id number] [address] [place] [address] [place] Urea nitrogen [Mass/Vol] 15 mg/dL Normal 9-24 [facility] Comment on above: Order Comment: Nancii men Type: BLOOD SPECIMEN Ordering Facility: [facility] Address: [address] [place] [address] Performed By: #### 2 4321-2 #### [facility] CLIA [id number] [facility] [place] [address] [place] CASE MANAGEMon 03-22-2024 CASE MANAGEM HNO ID: [id number] Author: HERACLIO KAUR LISW Service: ? Author Type: Cup Machine Operator Type: Care Mgt Progress Note Filed: 03/23/2024 [...] week ago Patient lives with spouse in [place] with [employer] No hc, dme or O2 6 click score is 24 and patient is on RA No skilled needs anticipated Please see Treatment Team for Care Management Weekend/Holiday coverage. SIGNATURE: MONE Desai PATIENT NAME: Enrrique Madera DATE: March 22, 2024 TIME: 8:42 AM PAGER/CONTACT #: [phone] Normal [facility] CBC panel Auto (Bld)on 03-22 Erythrocyte distribution width (RBC) [Ratio] 13.5 % Normal 11.5-15.0 [facility] Comment on above: Order Comment: Speci men Type: BLOOD SPECIMENOrdering Facility: [facility] Address: [address] [place] [address] Performed By: #### 5 8410-2 ####[facility] [id number] [place] [address] [place] Hematocrit (Bld) [Volume fraction] 40.4 % Normal 39.0-51.0 [facility] Comment on above: Order Comment: Speci men Type: BLOOD SPECIMENOrdering Facility: [facility] Address: [address] [place] [address] Performed By: #### 5 8410-2 ####[facility] [id number] [place] [address] [place] Hemoglobin (Bld) [Mass/Vol] 14.1 g/dL Normal 13.0-17.0 [facility] Comment on above: Order Comment: Speci men Type: BLOOD SPECIMENOrdering Facility: [facility] Address: [address] [place] [address] Performed By: #### 5 8410-2 ####[facility] [id number] [place] [address] [place] MCH (RBC) [Entitic mass] 30.8 pg Normal 26.0-34.0 [facility] Comment on above: Order Comment: Speci men Type: BLOOD SPECIMENOrdering Facility: [facility] Address: [address] [place] [address] Performed By: #### 5 8410-2 ####[facility] [id number] [place] [address] [place] MCHC (RBC) [Mass/Vol] 34.9 g/dL Normal 30.5-36.0 [facility] Comment on above: Order Comment: Speci men Type: BLOOD SPECIMENOrdering Facility: [facility] Address: [address] [place] [address] Performed By: #### 5 8410-2 ####[facility]IA [id number] [place] [address] [place] MCV (RBC) [Entitic vol] 88.2 fL Normal 80.0-100.0 [facility] Comment on above: Order Comment: Speci men Type: BLOOD SPECIMENOrdering Facility: [facility] Address: [address] [place] [address] Performed By: #### 5 8410-2 ####[facility] [id number] [place] [address] [place] Nucleated RBC (Bld) [#/Vol] 10*3/uL Normal <0.01 [facility] Comment on above: Order Comment: Speci men Type: BLOOD SPECIMENOrdering Facility: [facility] Address: [address] [place] [address] Performed By: #### 5 8410-2 ####[facility]IA [id number] [place] [address] [place] Platelet mean volume (Bld) [Entitic vol] 9.3 fL Normal 9.0-12.7 [facility] Comment on above: Order Comment: Speci men Type: BLOOD SPECIMENOrdering Facility: [facility] Address: [address] [place] [address] Performed By: #### 5 8410-2 ####[facility]IA [id number] [place] [address] [place] Platelets (Bld) [#/Vol] 265 10*3/uL Normal 150-400 [facility] Comment on above: Order Comment: Speci men Type: BLOOD SPECIMENOrdering Facility: [facility] Address: [address] [place] [address] Performed By: #### 5 8410-2 ####[facility]IA [id number] [place] [address] [place] RBC (Bld) [#/Vol] 4.58 10*6/uL Normal 4.20-6.00 [facility] Comment on above: Order Comment: Speci men Type: BLOOD SPECIMENOrdering Facility: [facility] Address: [address] [place] [address] Performed By: #### 5 8410-2 ####[facility] LABCLIA [id number] [place] [address] [place] WBC (Bld) [#/Vol] 15.04 10*3/uL High 3.70-11.00 [facility] Comment on above: Order Comment: Speci men Type: BLOOD SPECIMENOrdering Facility: [facility] Address: [address] [place] [address] Performed By: #### 5 8410-2 ####[facility] LABJEFF [id number] [place] [address] [place] CONSULT PROGon 03-22-2024 CONSULT PROG HNO ID: [id number] Author: JEFERSON CAMPBELL MD Service: Nephrology Author [...] 22, 2024 (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 Normal [facility] Magnesium SerPl-mCncon 03-22 Magnesium [Mass/Vol] 2.2 mg/dL Normal 1.7-2.3 [facility] Comment on above: Order Comment: Speci men Type: BLOOD SPECIMEN Ordering Facility: [facility] Address: [address] [address] Performed By: #### 2 4321-2 #### [facility] CLIA [id number] [address] [place] [address] [place] Basic metabolic 2000 panelon 03-21-2024 Anion gap [Moles/Vol] 8 mmol/L Normal 8-15 [facility] Comment on above: Order Comment: Speci men Type: BLOOD SPECIMEN Ordering Facility: [facility] Address: [address] [place] [address] Performed By: #### 2 4321-2 #### [facility] CLIA [id number] [address] [place] [address] [place] Calcium [Mass/Vol] 8.5 mg/dL Normal 8.5-10.2 [facility] Comment on above: Order Comment: Speci men Type: BLOOD SPECIMEN Ordering Facility: [facility] Address: [address] [place] [address] Performed By: #### 2 4321-2 #### [facility] CLIA [id number] [address] [place] [address] [place] Chloride [Moles/Vol] 87 mmol/L Low 98-107 [facility] Comment on above: Order Comment: Speci men Type: BLOOD SPECIMEN Ordering Facility: [facility] Address: [address] [place] [address] Performed By: #### 2 4321-2 #### [facility] CLIA [id number] [address] [place] [address] [place] CO2 [Moles/Vol] 25 mmol/L Normal 22-30 [facility] Comment on above: Order Comment: Speci men Type: BLOOD SPECIMEN Ordering Facility: [facility] Address: [address] [place] [address] Performed By: #### 2 4321-2 #### [facility] CLIA [id number] [address] [place] [address] [place] Creatinine [Mass/Vol] 0.80 mg/dL Normal 0.73-1.22 [facility] Comment on above: Order Comment: Rosalie best Type: BLOOD SPECIMEN Ordering Facility: [facility] Address: [address] [place] [address] Performed By: #### 2 4321-2 #### [facility] CLIA [id number] [address] [place] [address] [place] Creatinine and Glomerular filtration rate.predicted panel (S/P/Bld) 103 mL/min/1.73m??? Normal >=60 [facility] Comment on above: Order Comment: Rosalie best Type: BLOOD SPECIMEN Ordering Facility: [facility] Address: [address] [place] [address] Result Comment: Lia mated Glomerular Filtration Rate [...] GFR. Performed By: #### 2 4321-2 #### [facility] CLIA [id number] [address] [place] [address] [place] Glucose [Mass/Vol] 109 mg/dL High 74-99 [facility] Comment on above: Order Comment: Rosalie best Type: BLOOD SPECIMEN Ordering Facility: [facility] Address: [address] [place] [address] Result Comment: The [employer] (ADA) provides guidance for cutoff [...] Standards of Medical Care in Diabetes 2016, [employer]. Diabetes Care. 2016.39(Suppl 1). Performed By: #### 2 4321-2 #### [facility] CLIA [id number] [address] [place] [address] [place] Potassium [Moles/Vol] 4.8 mmol/L Normal 3.7-5.1 [facility] Comment on above: Order Comment: Speci men Type: BLOOD SPECIMEN Ordering Facility: [facility] Address: [address] [place] [address] Performed By: #### 2 4321-2 #### [facility] CLIA [id number] [address] [place] [address] [place] Sodium [Moles/Vol] 120 mmol/L Low 136-144 [facility] Comment on above: Order Comment: Speci men Type: BLOOD SPECIMEN Ordering Facility: [facility] Address: [address] [place] [address] Performed By: #### 2 4321-2 #### [facility] CLIA [id number] [address] [place] [address] [place] Urea nitrogen [Mass/Vol] 15 mg/dL Normal 9-24 [facility] Comment on above: Order Comment: Speci men Type: BLOOD SPECIMEN Ordering Facility: [facility] Address: [address] [place] [address] Performed By: #### 2 4321-2 #### [facility] CLIA [id number] [address] [place] [address] [place] Anion gap [Moles/Vol] 6 mmol/L Low 8-15 [facility] Comment on above: Order Comment: Speci men Type: BLOOD SPECIMEN Ordering Facility: [facility] Address: [address] [place] [address] Performed By: #### 2 4321-2 #### [facility] CLIA [id number] [address] [place] [address] [place] Calcium [Mass/Vol] 8.5 mg/dL Normal 8.5-10.2 [facility] Comment on above: Order Comment: Speci men Type: BLOOD SPECIMEN Order[facility] Facility[facility] Address: [address] [place] [address] Performed By: #### 2 4321-2 #### [facility] CLIA [id number] [address] [place] [address] [place] Chloride [Moles/Vol] 86 mmol/L Low 98-107 [facility] Comment on above: Order Comment: Speci men Type: BLOOD SPECIMEN Ordering Facility: [facility] Address: [address] [place] [address] Performed By: #### 2 4321-2 #### [facility] CLIA [id number] [address] [place] [address] [place] CO2 [Moles/Vol] 28 mmol/L Normal 22-30 [facility] Comment on above: Order Comment: Speci men Type: BLOOD SPECIMEN Order[facility] Facility[facility] Address: [address] [place] [address] Performed By: #### 2 4321-2 #### [facility] CLIA [id number] [address] [place] [address] [place] Creatinine [Mass/Vol] 0.80 mg/dL Normal 0.73-1.22 [facility] Comment on above: Order Comment: Speci men Type: BLOOD SPECIMEN Ordering Facility: [facility] Address: [address] [place] [address] Performed By: #### 2 4321-2 #### [facility] CLIA [id number] [address] [place] [address] [place] Creatinine and Glomerular filtration rate.predicted panel (S/P/Bld) 103 mL/min/1.73m??? Normal >=60 [facility] Comment on above: Order Comment: Rosalie best Type: BLOOD SPECIMEN Ordering Facility: [facility] Address: [address] [place] [address] Result Comment: Lia mated Glomerular Filtration Rate [...] GFR. Performed By: #### 2 4321-2 #### [facility] CLIA [id number] [address] [place] [address] [place] Glucose [Mass/Vol] 87 mg/dL Normal 74-99 [facility] Comment on above: Order Comment: Rosalie best Type: BLOOD SPECIMEN Ordering Facility: [facility] Address: [address] [place] [address] Result Comment: The [employer] (ADA) provides guidance for cutoff [...] Standards of Medical Care in Diabetes 2016, [employer]. Diabetes Care. 2016.39(Suppl 1). Performed By: #### 2 4321-2 #### [facility] CLIA [id number] [address] [place] [address] [place] Potassium [Moles/Vol] 4.8 mmol/L Normal 3.7-5.1 [facility] Comment on above: Order Comment: Rosalie best Type: BLOOD SPECIMEN Ordering Facility: [facility] Address: [address] [place] [address] Performed By: #### 2 4321-2 #### [facility] CLIA [id number] [address] [place] [address] [place] Sodium [Moles/Vol] 120 mmol/L Low 136-144 [facility] Comment on above: Order Comment: Speci men Type: BLOOD SPECIMEN Ordering Facility: [facility] Address: [address] [place] [address] Performed By: #### 2 4321-2 #### [facility] CLIA [id number] [address] [place] [address] [place] Urea nitrogen [Mass/Vol] 14 mg/dL Normal 9-24 [facility] Comment on above: Order Comment: Speci men Type: BLOOD SPECIMEN Ordering Facility: [facility] Address: [address] [place] [address] Performed By: #### 2 4321-2 #### [facility] CLIA [id number] [address] [place] [address] [place] Anion gap [Moles/Vol] 11 mmol/L Normal 8-15 [facility] Comment on above: Order Comment: Speci men Type: BLOOD SPECIMEN Ordering Facility: [facility] Address: [address] [place] [address] Performed By: #### 2 4321-2, 3016-3 #### [facility] CLIA [id number] [address] [place] [address] [place] Calcium [Mass/Vol] 8.6 mg/dL Normal 8.5-10.2 [facility] Comment on above: Order Comment: Speci men Type: BLOOD SPECIMEN Ordering Facility: [facility] Address: [address] [place] [address] Performed By: #### 2 4321-2, 3016-3 #### [facility] CLIA [id number] [address] [place] [address] [place] Chloride [Moles/Vol] 88 mmol/L Low 98-107 [facility] Comment on above: Order Comment: Speci men Type: BLOOD SPECIMEN Ordering Facility: [facility] Address: [address] [place] [address] Performed By: #### 2 4321-2, 6-3 #### [facility] CLIA [id number] [address] [place] [address] [place] CO2 [Moles/Vol] 24 mmol/L Normal 22-30 [facility] Comment on above: Order Comment: Speci men Type: BLOOD SPECIMEN Ordering Facility: [facility] Address: [address] [place] [address] Performed By: #### 2 4321-2, 3015-3 #### [facility] CLIA [id number] [address] [place] [address] [place] Creatinine [Mass/Vol] 0.81 mg/dL Normal 0.73-1.22 [facility] Comment on above: Order Comment: Speci men Type: BLOOD SPECIMEN Ordering Facility: [facility] Address: [address] [place] [address] Performed By: #### 2 4321-2, 3 #### [facility] CLIA [id number] [address] [place] [address] [place] Creatinine and Glomerular filtration rate.predicted panel (S/P/Bld) 103 mL/min/1.73m??? Normal >=60 [facility] Comment on above: Order Comment: Speci men Type: BLOOD SPECIMEN Ordering Facility: [facility] Address: [address] [place] [address] Result Comment: Lia mated Glomerular Filtration Rate [...] GFR. Performed By: #### 2 4321-2, 3016-3 #### [facility] CLIA [id number] [address] [place] [address] [place] Glucose [Mass/Vol] 90 mg/dL Normal 74-99 [facility] Comment on above: Order Comment: Speci men Type: BLOOD SPECIMEN Ordering Facility: [facility] Address: [address] [place] [address] Result Comment: The [employer] (ADA) provides guidance for cutoff [...] Standards of Medical Care in Diabetes 2016, [employer]. Diabetes Care. 2016.39(Suppl 1). Performed By: #### 2 4321-2, 6-3 #### [facility] CLIA [id number] [address] [place] [address] [place] Potassium [Moles/Vol] 4.8 mmol/L Normal 3.7-5.1 [facility] Comment on above: Order Comment: Speci men Type: BLOOD SPECIMEN Ordering Facility: [facility] Address: [address] [place] [address] Performed By: #### 2 4321-2, 6-3 #### [facility] CLIA [id number] [address] [place] [address] [place] Sodium [Moles/Vol] 123 mmol/L Low 136-144 [facility] Comment on above: Order Comment: Nancii men Type: BLOOD SPECIMEN Ordering Facility: [facility] Address: [address] [place] [address] Performed By: #### 2 4321-2, 3016-3 #### [facility] CLIA [id number] [address] [place] [address] [place] Urea nitrogen [Mass/Vol] 16 mg/dL Normal 9-24 [facility] Comment on above: Order Comment: Speci men Type: BLOOD SPECIMEN Ordering Facility: [facility] Address: [address] [place] [address] Performed By: #### 2 4321-2, 3016-3 #### [facility] CLIA [id number] [address] [place] [address] [place] CBC panel Auto (Bld)on 03-21 Erythrocyte distribution width (RBC) [Ratio] 13.8 % Normal 11.5-15.0 [facility] Comment on above: Order Comment: Speci men Type: BLOOD SPECIMEN Ordering Facility: [facility] Address: [address] [place] [address] Performed By: #### 5 8410-2 #### [facility] CLIA [id number] [address] [place] [address] [place] Hematocrit (Bld) [Volume fraction] 42.4 % Normal 39.0-51.0 [facility] Comment on above: Order Comment: Speci men Type: BLOOD SPECIMEN Ordering Facility: [facility] Address: [address] [place] [address] Performed By: #### 5 8410-2 #### [facility] CLIA [id number] [address] [place] [address] [place] Hemoglobin (Bld) [Mass/Vol] 14.7 g/dL Normal 13.0-17.0 [facility] Comment on above: Order Comment: Speci men Type: BLOOD SPECIMEN Ordering Facility: [facility] Address: [address] [place] [address] Performed By: #### 5 8410-2 #### [facility] CLIA [id number] [address] [place] [address] [place] MCH (RBC) [Entitic mass] 31.1 pg Normal 26.0-34.0 [facility] Comment on above: Order Comment: Speci men Type: BLOOD SPECIMEN Ordering Facility: [facility] Address: [address] [place] [address] Performed By: #### 5 8410-2 #### [facility] CLIA [id number] [address] [place] [address] [place] MCHC (RBC) [Mass/Vol] 34.7 g/dL Normal 30.5-36.0 [facility] Comment on above: Order Comment: Speci men Type: BLOOD SPECIMEN Ordering Facility: [facility] Address: [address] [place] [address] Performed By: #### 5 8410-2 #### [facility] CLIA [id number] [address] [place] [address] [place] MCV (RBC) [Entitic vol] 89.6 fL Normal 80.0-100.0 [facility] Comment on above: Order Comment: Speci men Type: BLOOD SPECIMEN Ordering Facility: [facility] Address: [address] [place] [address] Performed By: #### 5 8410-2 #### [facility] CLIA [id number] [address] [place] [address] [place] Nucleated RBC (Bld) [#/Vol] 10*3/uL Normal <0.01 [facility] Comment on above: Order Comment: Speci men Type: BLOOD SPECIMEN Ordering Facility: [facility] Address: [address] [place] [address] Performed By: #### 5 8410-2 #### [facility] CLIA [id number] [address] [place] [address] [place] Platelet mean volume (Bld) [Entitic vol] 9.2 fL Normal 9.0-12.7 [facility] Comment on above: Order Comment: Speci men Type: BLOOD SPECIMEN Ordering Facility: [facility] Address: [address] [place] [address] Performed By: #### 5 8410-2 #### [facility] CLIA [id number] [address] [place] [address] [place] Platelets (Bld) [#/Vol] 288 10*3/uL Normal 150-400 [facility] Comment on above: Order Comment: Speci men Type: BLOOD SPECIMEN Ordering Facility: [facility] Address: [address] [place] [address] Performed By: #### 5 8410-2 #### [facility] CLIA [id number] [address] [place] [address] [place] RBC (Bld) [#/Vol] 4.73 10*6/uL Normal 4.20-6.00 [facility] Comment on above: Order Comment: Speci men Type: BLOOD SPECIMEN Ordering Facility: [facility] Address: [address] [place] [address] Performed By: #### 5 8410-2 #### [facility] CLIA [id number] [address] [place] [address] [place] WBC (Bld) [#/Vol] 11.67 10*3/uL High 3.70-11.00 [facility] Comment on above: Order Comment: Speci men Type: BLOOD SPECIMEN Ordering Facility: [facility] Address: [address] [place] [address] Performed By: #### 5 8410-2 #### [facility] CLIA [id number] [address] [place] [address] [place] CONSULTon 03-21-2024 CONSULT HNO ID: [id number] Author: JEFERSON CAMPBELL MD Service: Nephrology Author Type: Physician Type: Consults Filed: 03/22/2024 16:13 Note Text: [facility] DEPARTMENT OF KIDNEY MEDICINE INITIAL CONSULT NOTE [...] Comment: Added automatically from request for surgery [id number] 03/01/2024: Chronic pain 03/01/2024: Depressive disorder 03/01/2024: [...] and No (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 Normal [facility] Consultation/Specialist Note on 03-21-2024 Consultation/Speciali st Note [id number]#[id number] FF Normal [facility] Osmolality SerPlon Osmolality [Osmolality] 253 mosm/kg Low 275-300 [facility] Comment on above: Order Comment: Speci men Type: BLOOD SPECIMEN Ordering Facility: [facility] Address: [address] [place] [address] Performed By: #### 5 8410-2 #### [facility] CLIA [id number] [address] [place] [address] [place] Osmolality Uron 03-21-2024 Osmolality (U) [Osmolality] 191 mosm/kg Normal 50-1200 [facility] Comment on above: Order Comment: Nancii estephania Type: BLOOD SPECIMEN Ordering Facility: [facility] Address: [address] [place] [address] Performed By: #### 5 8410-2 #### [facility] CLIA [id number] [address] [place] [address] [place] Sodium ?Tm Ur-sCncon 024 Sodium Unsp time (U) [Moles/Vol] <20 Normal 14-216 [facility] Comment on above: Order Comment: Speci men Type: BLOOD SPECIMEN Ordering Facility: [facility] Address: [address] [place] [address] Result Comment: Resu lt rechecked. Performed By: #### 5 8410-2 #### [facility] CLIA [id number] [address] [place] [address] [place] TSH SerPl-aCncon 03-21-2024 TSH Qn 2.890 m[IU]/L Normal 0.270-4.200 [facility] Comment on above: Order Comment: Speci men Type: BLOOD SPECIMEN Ordering Facility: [facility] Address: [address] [place] [address] Performed By: #### 2 4321-2, 3016-3 #### [facility] CLIA [id number] [address] [place] [address] [place] 25(OH)D3 SerPl-mCncon 2023 25-hydroxyvitamin D3 [Mass/Vol] 77.2 ng/mL Normal 31.0-80.0 [facility] Comment on above: Order Comment: Speci men Type: BLOOD SPECIMEN Ordering Facility: [facility] Address: [address] [place] [address] Result Comment: Clas sification of 25 [place] Vitamin D status: Deficiency/Insufficiency: < or = 30 ng/ml. Sufficiency/Optimal Levels: 31-80 ng/mL Toxicity: > 100 ng/mL. Test performed by chemiluminescent immunoassay. Performed By: #### 2 4321-2 #### [facility] CLIA [id number] [address] [place] [address] [place] Basic metabolic 2000 panelon 03-20-2024 Anion gap [Moles/Vol] 13 mmol/L Normal 8-15 [facility] Comment on above: Order Comment: Speci men Type: BLOOD SPECIMEN Ordering Facility: [facility] Address: [address] [place] [address] Performed By: #### 2 4321-2 #### [facility] CLIA [id number] [address] [place] [address] [place] Calcium [Mass/Vol] 8.4 mg/dL Low 8.5-10.2 [facility] Comment on above: Order Comment: Speci men Type: BLOOD SPECIMEN Ordering Facility: [facility] Address: [address] [place] [address] Performed By: #### 2 4321-2 #### [facility] CLIA [id number] [address] [place] [address] [place] Chloride [Moles/Vol] 90 mmol/L Low 98-107 [facility] Comment on above: Order Comment: Speci men Type: BLOOD SPECIMEN Ordering Facility: [facility] Address: [address] [place] [address] Performed By: #### 2 4321-2 #### [facility] CLIA [id number] [address] [place] [address] [place] CO2 [Moles/Vol] 24 mmol/L Normal 22-30 [facility] Comment on above: Order Comment: Speci men Type: BLOOD SPECIMEN Ordering Facility: [facility] Address: [address] [place] [address] Performed By: #### 2 4321-2 #### [facility] CLIA [id number] [address] [place] [address] [place] Creatinine [Mass/Vol] 0.82 mg/dL Normal 0.73-1.22 [facility] Comment on above: Order Comment: Speci men Type: BLOOD SPECIMEN Ordering Facility: [facility] Address: [address] [place] [address] Performed By: #### 2 4321-2 #### [facility] CLIA [id number] [address] [place] [address] [place] Creatinine and Glomerular filtration rate.predicted panel (S/P/Bld) 102 mL/min/1.73m??? Normal >=60 [facility] Comment on above: Order Comment: Speci men Type: BLOOD SPECIMEN Ordering Facility: [facility] Address: [address] [place] [address] Result Comment: Lia mated Glomerular Filtration Rate [...] GFR. Performed By: #### 2 4321-2 #### [facility] CLIA [id number] [address] [place] [address] [place] Glucose [Mass/Vol] 104 mg/dL High 74-99 [facility] Comment on above: Order Comment: Specsherley best Type: BLOOD SPECIMEN Ordering Facility: [facility] Address: [address] [place] [address] Result Comment: The [employer] (ADA) provides guidance for cutoff [...] Standards of Medical Care in Diabetes 2016, [employer]. Diabetes Care. 2016.39(Suppl 1). Performed By: #### 2 4321-2 #### [facility] CLIA [id number] [address] [place] [address] [place] Potassium [Moles/Vol] 4.6 mmol/L Normal 3.7-5.1 [facility] Comment on above: Order Comment: Rosalie best Type: BLOOD SPECIMEN Ordering Facility: [facility] Address: [address] [place] [address] Performed By: #### 2 4321-2 #### [facility] CLIA [id number] [address] [place], [place] [address] [place] Sodium [Moles/Vol] 127 mmol/L Low 136-144 [facility] Comment on above: Order Comment: Speci men Type: BLOOD SPECIMEN Ordering Facility: [facility] Address: [address] [place] [address] Performed By: #### 2 4321-2 #### [facility] CLIA [id number] [address] [place] [address] [place] [facility] Urea nitrogen [Mass/Vol] 17 mg/dL Normal 9-24 [facility] Comment on above: Order Comment: Rosalie men Type: BLOOD SPECIMEN Ordering Facility: [facility] Address: [address] [place] [address] Performed By: #### 2 4321-2 #### [facility] CLIA [id number] [address] [place] [address] [place] CASE MGT INIT ASSESon 2023 CASE MGT INIT ASSES HNO ID: [id number] Author: HERACLIO KAUR LISW Service: ? Author Type: Cup Machine Operator Type: Care Mgt Initial Assessment Filed: 03/20/2024 12:50 Note Text: CARE MANAGEMENT: ASSESSMENT AND DISCHARGE PLAN SERVICE DATE: March 20, 2024 SERVICE TIME: 12:47 PM PCP: Hany Olivares MD Primary Contact: Extended Emergency Contact Information Primary Emergency Contact: Consuelo Madera Mobile Relation: Spouse Admission Status: Observation Insurance Provider: VANESSA BRITO Discharge Planning requested by: Per Department [...] None Discharge Planning Patient Goal(s): Less pain [place] of Choice Explained: [place] of Choice Given: No Reason Not Given: [...] htn, brady Patient lives with spouse in [place] Patient states he has been able to manage ambulation and adls' independently No hc, dme or o2 bell captain 6 click score is 24 and patient is on RA Plan per team, is pain control No skilled needs anticipated SIGNATURE: MONE Desai PATIENT NAME: Enrrique Madera DATE: March 20, 2024 TIME: 12:47 PM CONTACT #: [phone] Normal [facility] CBC panel Auto (Bld)on 03-20 Erythrocyte distribution width (RBC) [Ratio] 13.7 % Normal 11.5-15.0 [facility] Comment on above: Order Comment: Rosalie best Type: BLOOD SPECIMEN Ordering Facility: [facility] Address: [address] [place] [address] Performed By: #### 5 8410-2 #### [facility] CLIA [id number] [address] [place] [address] [place] Hematocrit (Bld) [Volume fraction] 40.4 % Normal 39.0-51.0 [facility] Comment on above: Order Comment: Rosalie best Type: BLOOD SPECIMEN Ordering Facility: [facility] Address: [address] [place] [address] Performed By: #### 5 8410-2 #### [facility] CLIA [id number] [address] [place] [address] [place] Hemoglobin (Bld) [Mass/Vol] 14.0 g/dL Normal 13.0-17.0 [facility] Comment on above: Order Comment: Rosalie best Type: BLOOD SPECIMEN Ordering Facility: [facility] Address: [address] [place] [address] Performed By: #### 5 8410-2 #### [facility] CLIA [id number] [address] [place] [address] [place] MCH (RBC) [Entitic mass] 30.6 pg Normal 26.0-34.0 [facility] Comment on above: Order Comment: Speci men Type: BLOOD SPECIMEN Ordering Facility: [facility] Address: [address] [place] [address] Performed By: #### 5 8410-2 #### [facility] CLIA [id number] [address] [place] [address] [place] MCHC (RBC) [Mass/Vol] 34.7 g/dL Normal 30.5-36.0 [facility] Comment on above: Order Comment: Speci men Type: BLOOD SPECIMEN Ordering Facility: [facility] Address: [address] [place] [address] Performed By: #### 5 8410-2 #### [facility] CLIA [id number] [address] [place] [address] [place] MCV (RBC) [Entitic vol] 88.4 fL Normal 80.0-100.0 [facility] Comment on above: Order Comment: Speci men Type: BLOOD SPECIMEN Ordering Facility: [facility] Address: [address] [place] [address] Performed By: #### 5 8410-2 #### [facility] CLIA [id number] [address] [place] [address] [place] Nucleated RBC (Bld) [#/Vol] 10*3/uL Normal <0.01 [facility] Comment on above: Order Comment: Speci men Type: BLOOD SPECIMEN Ordering Facility: [facility] Address: [address] [place] [address] Performed By: #### 5 8410-2 #### [facility] CLIA [id number] [address] [place] [address] [place] Platelet mean volume (Bld) [Entitic vol] 9.3 fL Normal 9.0-12.7 [facility] Comment on above: Order Comment: Speci men Type: BLOOD SPECIMEN Ordering Facility: [facility] Address: [address] [place] [address] Performed By: #### 5 8410-2 #### [facility] CLIA [id number] [address] [place] [address] [place] Platelets (Bld) [#/Vol] 263 10*3/uL Normal 150-400 [facility] Comment on above: Order Comment: Speci men Type: BLOOD SPECIMEN Ordering Facility: [facility] Address: [address] [place] [address] Performed By: #### 5 8410-2 #### [facility] CLIA [id number] [address] [place] [address] [place] RBC (Bld) [#/Vol] 4.57 10*6/uL Normal 4.20-6.00 [facility] Comment on above: Order Comment: Speci men Type: BLOOD SPECIMEN Ordering Facility: [facility] Address: [address] [place] [address] Performed By: #### 5 8410-2 #### [facility] CLIA [id number] [address] [place] [address] [place] WBC (Bld) [#/Vol] 11.62 10*3/uL High 3.70-11.00 [facility] Comment on above: Order Comment: Speci men Type: BLOOD SPECIMEN Ordering Facility: [facility] Address: [address] [place] [address] Performed By: #### 5 8410-2 #### [facility] CLIA [id number] [address] [place] [address] [place] CONSULTon 03-20-2024 CONSULT HNO ID: [id number] Author: MARCELINO PRADHAN PA-C Service: Pain Management Author Type: Physician Hunter Type: Consults Filed: 03/20/2024 15:11 Note Text: CONSULT: CHRONIC PAIN MANAGEMENT SERVICE PATIENT NAME: Enrrique Madera DATE of SERVICE: March 20, 2024 TIME of SERVICE: 1:00PM REASON FOR CONSULT: Suggestions for optimization of acute on chronic, worsening low back pain w/ RLE radiculopathy REQUESTING PROVIDER: Mckayla Prince PA-C PCP: Hany Olivares MD ASSESSMENT: Mr. Enrrique Madera is a 58 yo M from [place], [place] w/ a PMHx of HTN, chronic [...] starting ~1.5 weeks ago who presented to [facility] Main ED on 03/19/2024 for further [...] evaluation. PLAN: 1. Per PDMP report in [facility], Mr. Madera has been prescribed chronic opioid therapy (COT) consisting of (2) Rx for Butrans 5 mcg/hr TD patch q 7 days per [facility] in [place], [place] started on 02/24/2024 w/ most recent Rx dispensed on 03/12/2024. Please refer to the PDMP tab in [facility] and under [facility] tab [...] 450 m (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 Normal [facility] Comprehensive metabolic 2000 panelon 03-20-2024 Albumin [Mass/Vol] 3.9 g/dL Normal 3.9-4.9 [facility] Comment on above: Order Comment: Specsherley best Type: BLOOD SPECIMENOrdering Facility: [facility] Address: [address] [place] [address] Performed By: #### 1 9123-9, 76602-1 ####[facility]IA [id number] [place] [address] [place] ALP [Catalytic activity/Vol] 50 U/L Normal 38-113 [facility] Comment on above: Order Comment: Speci estephania Type: BLOOD SPECIMENOrdering Facility: [facility] Address: [address] [place] [address] Performed By: #### 1 9123-9, ####[facility] LAB[facility]IA [id number] [place] [id number] [place] ALT [Catalytic activity/Vol] 35 U/L Normal 10-54 [facility] Comment on above: Order Comment: Speci men Type: BLOOD SPECIMENOrdering Facility: [facility] Address: [address] [place] [address] Performed By: #### 1 9123-9, 99028-7 ####[facility]IA [id number] [place] [address] [place] Anion gap [Moles/Vol] 7 mmol/L Low 8-15 [facility] Comment on above: Order Comment: Speci men Type: BLOOD SPECIMENOrdering Facility: [facility] Address: [address] [place] [address] Performed By: #### 1 9123-9, 34055-5 ####[facility] LAB[facility]IA [id number] [place] [address] [place] AST [Catalytic activity/Vol] 24 U/L Normal 14-40 [facility] Comment on above: Order Comment: Speci men Type: BLOOD SPECIMENOrdering Facility: [facility] Address: [address] [place] [address] Performed By: #### 1 9123-9, 65711-4 ####[facility] LAB[facility]IA [id number] [place] [address] [place] Bilirubin [Mass/Vol] 0.8 mg/dL Normal 0.2-1.3 [facility] Comment on above: Order Comment: Speci men Type: BLOOD SPECIMENOrdering Facility: [facility] Address: [address] [place] [address] Performed By: #### 1 9123-9, 39688-7 ####[facility] LAB[facility]IA [id number] [place] [address] [place] Calcium [Mass/Vol] 8.8 mg/dL Normal 8.5-10.2 [facility] Comment on above: Order Comment: Speci men Type: BLOOD SPECIMENOrdering Facility: [facility] Address: [address] [place] [address] Result Comment: Resu lt rechecked. Performed By: #### 1 9123-9, 24459-5 ####[facility] LAB[facility]IA [id number] [place] [address] [place] Chloride [Moles/Vol] 93 mmol/L Low 98-107 [facility] Comment on above: Order Comment: Speci men Type: BLOOD SPECIMENOrdering Facility: [facility] Address: [address] [place] [address] Performed By: #### 1 9123-9, 15128-2 ####[facility] LABIA [id number] [place] [address] [place] CO2 [Moles/Vol] 28 mmol/L Normal 22-30 [facility] Comment on above: Order Comment: Speci men Type: BLOOD SPECIMENOrdering Facility: [facility] Address: [address] [place] [address] Performed By: #### 1 9123-9, 60231-4 ####[facility] LABIA [id number] [place] [address] [place] Creatinine [Mass/Vol] 0.77 mg/dL Normal 0.73-1.22 [facility] Comment on above: Order Comment: Speci men Type: BLOOD SPECIMENOrdering Facility: [facility] Address: [address] [place] [address] Performed By: #### 1 9123-9, 41003-2 ####[facility] LABIA [id number] [place] [address] [place] Creatinine and Glomerular filtration rate.predicted panel (S/P/Bld) 104 mL/min/1.73m??? Normal >=60 [facility] Comment on above: Order Comment: Speci men Type: BLOOD SPECIMENOrdering Facility: [facility] Address: [address] [place] [address] Result Comment: Lia mated Glomerular Filtration Rate [...] reflect actual GFR. Performed By: #### 1 23-9, ####[facility] LABCLIA [id number] [address] [address] [place] Glucose [Mass/Vol] 86 mg/dL Normal 74-99 [facility] Comment on above: Order Comment: Specsherley best Type: BLOOD SPECIMENOrdering Facility: [facility] Address: [address] [place] [address] Result Comment: The [employer] (ADA) provides guidance for cutoff [...] Standards of Medical Care in Diabetes 2016, [employer]. Diabetes Care. 2016.39(Suppl 1). Performed By: #### 1 9123-9, ####[facility] LABCLIA [id number] [address] [address] [place] Potassium [Moles/Vol] 5.1 mmol/L Normal 3.7-5.1 [facility] Comment on above: Order Comment: Rosalie best Type: BLOOD SPECIMENOrdering Facility: [facility] Address: [address] [place] [address] Performed By: #### 1 9123-9, ####[facility] [facility] [id number] [address] [address] [place] Protein [Mass/Vol] 5.8 g/dL Low 6.3-8.0 [facility] Comment on above: Order Comment: Speci men Type: BLOOD SPECIMENOrdering Facility: [facility] Address: [address] [place] [address] Performed By: #### 1 9123-9, 95159-9 ####[facility] LAB[facility]IA [id number] [place] [address] [place] Sodium [Moles/Vol] 128 mmol/L Low 136-144 [facility] Comment on above: Order Comment: Speci men Type: BLOOD SPECIMENOrdering Facility: [facility] Address: [address] [place] [address] Result Comment: Resu lt rechecked. Performed By: #### 1 9123-9, 60512-0 ####[facility] LABIA [id number] [place] [address] [place] Urea nitrogen [Mass/Vol] 14 mg/dL Normal 9-24 [facility] Comment on above: Order Comment: Speci men Type: BLOOD SPECIMENOrdering Facility: [facility] Address: [address] [place] [address] Performed By: #### 1 9123-9, 62038-9 ####[facility] LABIA [id number] [place] [address] [place] Magnesium SerPl-mCncon 03-20 Magnesium [Mass/Vol] 2.2 mg/dL Normal 1.7-2.3 [facility] Comment on above: Order Comment: Speci men Type: BLOOD SPECIMENOrdering Facility: [facility] Address: [address] [place] [address] Performed By: #### 1 9123-9, 49258-1 ####[facility] LABCLIA [id number] [place] [address] [place] Osmolality SerPlon Osmolality [Osmolality] 261 mosm/kg Low 275-300 [facility] Comment on above: Order Comment: Speci men Type: BLOOD SPECIMEN [facility] Address: [address] [place] [address] Performed By: #### 5 8410-2 #### [facility] CLIA [id number] [address] [place] [address] [place] [address] [facility] THERAPY NTon 03-20-2024 THERAPY NT HNO ID: [id number] Author: REBECA COOPER OT/L Service: Occupational Therapy Author Type: Occupational Therapist Type: Therapy (PT/OT/Speech/Resp) Filed: 03/20/2024 08:24 Note Text: THERAPY COMMUNICATION NOTE SERVICE DATE: 03/20/2024 ROOM: [place] [address] Physical therapy consult received. Chart reviewed. No [...] March 20, 2024 TIME: 8:24 AM Normal [facility] XR HIP MICHELL 5V PEL+ AP/LAT EA [...] at L4-L5. IMPRESSION: No acute osseous abnormality. Head Insulation Board Saw Operator: HARRIETT Transcribe Date/Time: Mar 20 2024 12:53P Dictated by : MILES SENA DO This examination was interpreted and the report reviewed and electronically signed by: MING BARCENAS MD on Mar 20 2024 1:10PM EST [id number] [facility] HNO ID: [id number] Author: ENRRIQUE MARINELLI RT(R) Service: Radiology Author Type: Director Of Safety And Security Type: Allied Health Filed: 03/19/2024 16:06 Note [...] 19, 2024 TIME: 3:57 PM PAGER/CONTACT #: Normal [facility] HNO ID: [id number] Author: ENRRIQUE MARINELLI RT(R) Service: Radiology Author Type: Director Of Safety And Security Type: Allied Health Filed: 03/19/2024 15:55 Note [...] 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 RADIOLOGY DEPARTMENT: MR; Exam(s) Completed: Spine: Lumbar spine limited- localizer only PERIPHERAL IV DATA: Not applicable SIGNED BY: Enrrique Marinelli RT(R) March 19, 2024 3:54 PM Normal [facility] Basic metabolic 2000 panelon 03-19-2024 Anion gap [Moles/Vol] 7 mmol/L Low 8-15 [facility] Comment on above: Order Comment: Speci men Type: BLOOD SPECIMEN [facility] Address: [address] [place] [address] Performed By: #### 2 4321-2 #### [facility] CLIA [id number] [address] [place] [address] [place] Calcium [Mass/Vol] 5.8 mg/dL Low 8.5-10.2 [facility] Comment on above: Order Comment: Speci men Type: BLOOD SPECIMEN [facility] Address: [address] [place] [address] Performed By: #### 2 4321-2 #### [facility] CLIA [id number] [address] [place] [address] [place] Chloride [Moles/Vol] 109 mmol/L High 98-107 [facility] Comment on above: Order Comment: Speci men Type: BLOOD SPECIMEN [facility] Address: [address] [place] [address] Performed By: #### 2 4321-2 #### [facility] CLIA [id number] [address] [place] [address] [place] CO2 [Moles/Vol] 23 mmol/L Normal 22-30 [facility] Comment on above: Order Comment: Speci men Type: BLOOD SPECIMEN [facility] Address: [address] [place] [address] Performed By: #### 2 4321-2 #### [facility] CLIA [id number] [address] [place] [address] [place] Creatinine [Mass/Vol] 0.53 mg/dL Low 0.73-1.22 [facility] Comment on above: Order Comment: Rosalie best Type: BLOOD SPECIMEN [facility] Address: [address] [place] [address] Performed By: #### 2 4321-2 #### [facility] CLIA [id number] [address] [place] [address] [place] Creatinine and Glomerular filtration rate.predicted panel (S/P/Bld) 117 mL/min/1.73m??? Normal >=60 [facility] Comment on above: Order Comment: Rosalie best Type: BLOOD SPECIMEN [facility] Address: [address] [place] [address] Result Comment: Lia mated Glomerular Filtration Rate [...] GFR. Performed By: #### 2 4321-2 #### [facility] CLIA [id number] [address] [place] [address] [place] Glucose [Mass/Vol] 65 mg/dL Low 74-99 [facility] Comment on above: Order Comment: Rosalie best Type: BLOOD SPECIMEN [facility] Address: [address] [place] [address] Result Comment: The [employer] (ADA) provides guidance for cutoff [...] Standards of Medical Care in Diabetes 2016, [employer]. Diabetes Care. 2016.39(Suppl 1). Performed By: #### 2 4321-2 #### [facility] CLIA [id number] [address] [place] [address] [place] Potassium [Moles/Vol] 2.9 mmol/L Low 3.7-5.1 [facility] Comment on above: Order Comment: Nancii men Type: BLOOD SPECIMEN [facility] Address: [address] [place] [address] Performed By: #### 2 4321-2 #### [facility] CLIA [id number] [address] [place] [address] [place] Sodium [Moles/Vol] 139 mmol/L Normal 136-144 [facility] Comment on above: Order Comment: Rosalie best Type: BLOOD SPECIMEN [facility] Address: [address] [place] [address] Performed By: #### 2 4321-2 #### [facility] CLIA [id number] [address] [place] [address] [place] Urea nitrogen [Mass/Vol] 10 mg/dL Normal 9-24 [facility] Comment on above: Order Comment: Nancii men Type: BLOOD SPECIMEN [facility] Address: [address] [place] [address] Performed By: #### 2 4321-2 #### [facility] CLIA [id number] [address] [place] [address] [place] CBC W Auto Differential pane l (Bld)on 03-19-2024 Basophils (Bld) [#/Vol] 0.03 10*3/uL Normal <0.11 [facility] Comment on above: Order Comment: Speci men Type: BLOOD SPECIMEN [facility] Address: [address] [place] [address] Performed By: #### 5 7021-8 #### [facility] CLIA [id number] [address] [place] [address] [place] Basophils/100 WBC (Bld) 0.2 % Normal [facility] Comment on above: Order Comment: Speci men Type: BLOOD SPECIMEN [facility] Address: [address] [place] [address] Performed By: #### 5 7021-8 #### [facility] CLIA [id number] [address] [place] [address] [place] Differential cell count method Nom (Bld) Auto Normal [facility] Comment on above: Order Comment: Speci men Type: BLOOD SPECIMEN [facility] Address: [address] [place] [address] Performed By: #### 5 7021-8 #### [facility] CLIA [id number] [address] [place] [address] [place] Eosinophils (Bld) [#/Vol] 0.10 10*3/uL Normal <0.46 [facility] Comment on above: Order Comment: Speci men Type: BLOOD SPECIMEN [facility] Address: [address] [place] [address] Performed By: #### 5 7021-8 #### [facility] CLIA [id number] [address] [place] [address] [place] Eosinophils/100 WBC (Bld) 0.8 % Normal [facility] Comment on above: Order Comment: Speci men Type: BLOOD SPECIMEN [facility] Address: [address] [place] [address] Performed By: #### 5 7021-8 #### [facility] CLIA [id number] [address] [place] [address] [place] Erythrocyte distribution width (RBC) [Ratio] 14.1 % Normal 11.5-15.0 [facility] Comment on above: Order Comment: Speci men Type: BLOOD SPECIMEN [facility] Address: [address] [place] [address] Performed By: #### 5 7021-8 #### [facility] CLIA [id number] [address] [place] [address] [place] Hematocrit (Bld) [Volume fraction] 45.8 % Normal 39.0-51.0 [facility] Comment on above: Order Comment: Speci men Type: BLOOD SPECIMEN [facility] Address: [address] [place] [address] Performed By: #### 5 7021-8 #### [facility] CLIA [id number] [address] [place] [address] [place] Hemoglobin (Bld) [Mass/Vol] 15.6 g/dL Normal 13.0-17.0 [facility] Comment on above: Order Comment: Speci men Type: BLOOD SPECIMEN [facility] Address: [address] [place] [address] Performed By: #### 5 7021-8 #### [facility] CLIA [id number] [address] [place] [address] [place] Immature granulocytes (Bld) [#/Vol] 0.26 10*3/uL High <0.10 [facility] Comment on above: Order Comment: Speci men Type: BLOOD SPECIMEN [facility] Address: [address] [place] [address] Performed By: #### 5 7021-8 #### [facility] CLIA [id number] [address] [place] [address] [place] Immature granulocytes/100 WBC (Bld) 2.1 % Normal [facility] Comment on above: Order Comment: Speci men Type: BLOOD SPECIMEN [facility] Address: [address] [place] [address] Performed By: #### 5 7021-8 #### [facility] CLIA [id number] [address] [place] [address] [place] Lymphocytes (Bld) [#/Vol] 1.28 10*3/uL Normal 1.00-4.00 [facility] Comment on above: Order Comment: Speci men Type: BLOOD SPECIMEN [facility] Address: [address] [place] [address] Performed By: #### 5 7021-8 #### [facility] CLIA [id number] [address] [place] [address] [place] Lymphocytes/100 WBC (Bld) 10.5 % Normal [facility] Comment on above: Order Comment: Speci men Type: BLOOD SPECIMEN [facility] Address: [address] [place] [address] Performed By: #### 5 7021-8 #### [facility] CLIA [id number] [address] [place] [address] [place] MCH (RBC) [Entitic mass] 31.1 pg Normal 26.0-34.0 [facility] Comment on above: Order Comment: Speci men Type: BLOOD SPECIMEN [facility] Address: [address] [place] [address] Performed By: #### 5 7021-8 #### [facility] CLIA [id number] [address] [place] [address] [place] MCHC (RBC) [Mass/Vol] 34.1 g/dL Normal 30.5-36.0 [facility] Comment on above: Order Comment: Speci men Type: BLOOD SPECIMEN [facility] Address: [address] [place] [address] Performed By: #### 5 7021-8 #### [facility] CLIA [id number] [address] [place] [address] [place] MCV (RBC) [Entitic vol] 91.2 fL Normal 80.0-100.0 [facility] Comment on above: Order Comment: Speci men Type: BLOOD SPECIMEN [facility] Address: [address] [place] [address] Performed By: #### 5 7021-8 #### [facility] CLIA [id number] [address] [place] [address] [place] Monocytes (Bld) [#/Vol] 0.89 10*3/uL High <0.87 [facility] Comment on above: Order Comment: Speci men Type: BLOOD SPECIMEN [facility] Address: [address] [place] [address] Performed By: #### 5 7021-8 #### [facility] CLIA [id number] [address] [place] [address] [place] Monocytes/100 WBC (Bld) 7.3 % Normal [facility] Comment on above: Order Comment: Speci men Type: BLOOD SPECIMEN [facility] Address: [address] [place] [address] Performed By: #### 5 7021-8 #### [facility] CLIA [id number] [address] [place] [address] [place] Neutrophils (Bld) [#/Vol] 9.66 10*3/uL High 1.45-7.50 [facility] Comment on above: Order Comment: Speci men Type: BLOOD SPECIMEN [facility] Address: [address] [place] [address] Performed By: #### 5 7021-8 #### [facility] CLIA [id number] [address] [id number] [address] [place] Neutrophils/100 WBC (Bld) 79.1 % Normal [facility] Comment on above: Order Comment: Speci men Type: BLOOD SPECIMEN [facility] Address: [address] [place] [address] Performed By: #### 5 7021-8 #### [facility] CLIA [id number] [address] [place] [address] [place] Nucleated RBC (Bld) [#/Vol] 10*3/uL Normal <0.01 [facility] Comment on above: Order Comment: Speci men Type: BLOOD SPECIMEN [facility] Address: [address] [place] [address] Performed By: #### 5 7021-8 #### [facility] CLIA [id number] [address] [place] [address] [place] Nucleated RBC/100 WBC (Bld) [Ratio] 0.0 /100 WBC Normal [facility] Comment on above: Order Comment: Speci men Type: BLOOD SPECIMEN [facility] Address: [address] [place] [address] Performed By: #### 5 7021-8 #### [facility] CLIA [id number] [address] [place] [address] [place] Platelet mean volume (Bld) [Entitic vol] 9.2 fL Normal 9.0-12.7 [facility] Comment on above: Order Comment: Speci men Type: BLOOD SPECIMEN [facility] Address: [address] [place] [address] Performed By: #### 5 7021-8 #### [facility] CLIA [id number] [address] [place] [address] [place] Platelets (Bld) [#/Vol] 297 10*3/uL Normal 150-400 [facility] Comment on above: Order Comment: Speci men Type: BLOOD SPECIMEN [facility] Address: [address] [place] [address] Performed By: #### 5 7021-8 #### [facility] CLIA [id number] [address] [place] [address] [place] RBC (Bld) [#/Vol] 5.02 10*6/uL Normal 4.20-6.00 [facility] Comment on above: Order Comment: Speci men Type: BLOOD SPECIMEN [facility] Address: [address] [place] [address] Performed By: #### 5 7021-8 #### [facility] CLIA [id number] [address] [place] [address] [place] WBC (Bld) [#/Vol] 12.22 10*3/uL High 3.70-11.00 [facility] Comment on above: Order Comment: Speci men Type: BLOOD SPECIMEN [facility] Address: [address] [place] [address] Performed By: #### 5 7021-8 #### [facility] CLIA [id number] [address] [place] [address] [place] CONSULTon 03-19-2024 CONSULT HNO ID: [id number] Author: SAVANNA SANTIAGO MD Service: Neurosurgery Author [...] starting ~1.5 weeks ago who presented to [facility] Main ED on 03/19/24 for intractable [...] (Per Kian Mcdermott's note 03/01/24): SURGERY #1: ~1979's L5-S1 decompression SURGERY #2: ~1984 L4-L5 decompression SURGERY #3: Thoracic kyphoplasty SURGERY #4: 07/25/[address] Daniel Childress L2-5 decompressive laminectomy with partial medial facetectomies PAST MEDICAL HISTORY: PAST MEDICAL HISTORY 03/17/2014: Burst fracture of T12 vertebra (HCC) 01/26/2023: Carpal tunnel syndrome of right wrist 09/09/2020: Chondromalacia of right knee Comment: Added automatically from request for surgery [id number] 03/01/2024: Chronic pain 03/01/2024: Depressive disorder 03/01/2024: [...] Rfl: diclofenac, EC, (VOLTAREN) 75 mg EC [id number] mg.Disp: Rfl: FLUoxetine (PROZAC) 10 mg capsuleTake 10 mg by mouth.Disp: Rfl: gabapentin (NEURONTIN) 600 mg [id number] mg.Disp: Rfl: lisinopril-hydroCHLOROthia zide (ZESTORETIC) 20-25 mg per tabletTake 1 tablet by mouth once daily.Disp: Rfl: naloxone 4 mg/actuation nasal spray (NARCAN)Use 4 mg in the nose at bedtime as needed.Disp: Rfl: sildenafil (REVATIO) 20 mg tablet2 TO 3 TABLETS, Oral, Daily, PRN: NEEDED, # 90 tab(s), 1 Refill(s), Pharmacy: [id number], TAKE 2 TO 3 TABLETS [...] weeks ago (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 Normal [facility] CRP SerPl-mCncon 03-19-2024 CRP [Mass/Vol] mg/L Normal <0.9 [facility] Comment on above: Order Comment: Speci men Type: BLOOD SPECIMEN [facility] Address: [address] [place] [address] Performed By: #### 2 4321-2 #### [facility] CLIA [id number] [address] [place] [address] [place] Coding Summaryon 03-19-2024 Coding Summary HTMLBase 64 KijwqnpaQPs6tYt+PGhlYWQ+PE 0IYXRfZ73nyPGnkP3rT9PSZWaX XkpyUGTMDQlWSdBmvfKyND3ttD NjZXJu IC8+LA3jJBRjLuvdsAFzu1Q3fX T5F50zme8fNCgcuIX4RBIdMpVf vjlli0ryqTj1OIlnYdgpCfXo IBKawB62EBB9iV63Sz03yDDjsL Gee4rrnIv8AzOgTACsIXD0cFvt PBdxb4BoVMMbR77vrLJae2L7 OJPntOgakQSwMfQkmRQ4kB2bIM hmevecg6vnobhsWpu9lb75sKLh r9Y8mHR9Y4LrdhS8QNFkbEHe PhfdcQLQeY0mvzinu8vqlqgtVw JiDMPwTJj5LNx6LLHiuHtnNaNq GB14CKZ7MYKenoEsM8GtLKEv kKzzWcP6b0I8Lt0XY0OIFjndT1 VNTUFSWTwvdGQ+NC89wm68G6Sy OaqqJfd2JSLvTOR1jNP1tN6c VYJtLHdie9R0eJL0D2UgwmHouj 9qs9dvTGWyCTouV44dwECtq9B6 IBSxkPO7VQQnlAdqUsSeyC69 Oyc+ETPetOjyq4VmZnoqo3dkq2 sczPp4ZowcBOAzupUvtQioUOX1 r1OzXz4rGALzpTL2nBX8zS5q QhFcVkJ2DDpyO917UcVtpOPkCd kuZ95xG0PjeZH+FMClHnn3PKQq pGvhAS1mV1PzSKXpsjljbLBr wZyiKF4iVPSlzkwrMUQlwH9qEM HqH4m2DfZzRsF2KBxvQ9KdHFFs bcdqSr33dS2tNmNwIsC8QBkz N1UfwvJ7YQOueHJaZFzmAHT2U3 1te9T4HFXsATJuCKE7kUD5wV5e bGlnbjogbGVmdDsgdmVydGlj CYzqPCnpK566SBLqyEtjBkJvNG luZyBEYXRlOiAgMDgvMDUvMjAy NDwvdGQ+OELhLRV1hXymGLXi qHNaLZbyUq9eiFsplZanWN7eJY OhrjrhGSBjvJ7fIIZxhTAjqNpk BV4pEHGfdydej773NjLvJBV5 DAMpiOZzV0WqsX9wFhUkHVEfCX TrQ4GplGXyUPkpW498RIrhLtS7 FQUwvgNlF9BbLVLfyOsuEdI9 b3T1Zi5Lg9GviyoeA3CvvWTvBq TvNjcmKBo3Z6FuXqriqUP+PC90 BFCiMC30YKq9DRS6pGqyRJjb YUXuI6VwfN0nIvPiLFJoWJTxGd c+PHRhYmxlIHdpZHRoPScxMDAl SbZccEswKM1wOo1yVIYaIPEv iVmquGMlDyBef0hoBEYpWFxfZZ 5drQwqN8FgcRC4QXAfc2a3Kb81 V15sP1IxkJU+BNLlsZL6yPC1 tY9kFaCrHwM3RBlbN123VbGfrN AvJyvzo2vsd5iqkAx6HgC1XWQm kjXcePrpXYE7p5JfHh90V06u IHdpZHRoPSIxNSUiIHZhbGlnbj 5qaF9oDv0+BZLodSW0oGA1bS3b YvNhTeA6LFkyZ920FnMyjTEv Fboez4myk2locGk2FaDqKVWgwy GhpYetTXG6p6IbXu20B7JleAkb f8XmLqr7sc23kOCyr0E5aSK6 J8IdUPPcawlmvYLbfOzpLQ9bJS BzxnopYREarQ1oGOAsS1v6GkAm EeX0GTvbE5PmqmO6RGYhnLIx MNZlnEVPaJ6whwhmx1xgtlcjBc XmFTRsLLn0HSo2YYVuiIqnQoQr BML6XhR3TYP2lUOssF6quWbw zdiadW9wLrr+KWE0lCNcwDUCEX 1lOjwvdGQ+NMTcLQQ8nVmkWBfr VDVsrX0xPMXyX9o1PaRlHaX0 VYvxB3HuudY2NKKmyGZaDIGruR DMaV7kkfxqj8whdfrcZnJhEFKe TAp9GYj2AXOmxRzoAnAoPVR2 HgB7FON8rLOiwZ8bgHfetjnlfW 9wOyc+XbjhiYdtTKS6QBg5V3Xn Pnl3PVEtbEpnJO8fiTKqNZkg Fy3pfKmtbAfdGM4xKAKredwii2 02SzOhc8yeKQWqbHCnFYxoXBO2 U69qu7V1FDFcEUZxFXP2bAK4 zJ9uqGdwvrutkDMzkQqfrgFseK chTTgsFCvfZ786QPBftSktCgTk CNr5K3YtJpg7LCBvuEseBA0s aKYaWAnaEr0peRghhBdzON6gZZ Tcewnuq171VqPfc4crUNJcpBMc VKomPMN4Z04ae4O1TKBcLPPt UWX9pTM0cU1qeVqoxsfxfILbpR vzzfYpySqeNUhaQNtnJ184XCOt qQdsHbKzeBs5N3FwXye1HYMq lCexRL4nmKWxOJnrAc5zfEdxxF ybNH2zBSFprfzvv309PdUyl4xl LPLtjDIrETwxOME6J53jw8M7 KVFvHAQeSDH9nSE5pV9etKlqct ogbGVmdDsgdmVydGljYWwtYWxp X639CCRsvTroOfGiaXmlwwCq WAolZIs9G9HqExedpIS+PC90YW RnKN01iLPihQGvu3kxuJy0BgLg OMAwYSE1bEkuKLuiy2ThHOBf C14pmCPmt0O3FKXfnGymuCBmMl DolOR3oN6vXQzggptbr3gqbdsb Ltetg8axlb85jG28Y71pJSpy LADwZTLvXZYjRDHuyWyzqm5gkV 9wIi8+NMDehZA3eIB5eJ9zBGLc ZoM6FIknX798LzImyEVpJnyd y6lzh5gzyKy6FcB1UAPfdeFrqS otJHK3r6BeOk94O96zPXcdKRRa TGFxQRPpBRIpdCoktv0quS2j Ii8+ZVRduNQ5tMN9jY5eIeWdRf L5HZqyM707AdIgfRNuPtxvG01x Q1HrcSI+DOKuQtf6VKJgrVvr QV2ffLKgGEaaDx5lJAL7XnWbYv RqMJadI0BqYSQtrqfevaxtqQY0 ZOYjFTLgtC64Di4ujCdrEGPb kMZXwV1fwmyuy5wixnwrFwIwTN ReYTv9IPe3IZXmtOftXgWoFZO6 TyU5HFX2oXUdvT4waFjhbguj eA8pL1GvECZleurbMg99bH7rDg ZiHkJ7DXqmEpb+M5ROUWQRUNXY PB8ZBhXPHG48YB95wXIvo1Q0 sGJ9U4IbEROfhxyfupyypSG7CF HuSJImjZ75pXFjQIfqBd2eh9B8 w619MQKnVSUxjF22Vu8jjNjh DNZqtRUMhT3djdodn0yvmeybGn ZzKUPsQDo5AGx6RJCpwFzlWnUq ZZN9BpD4AVA2qYWwxI8dfMjr wdqjnF7zBwi+REXwIHVzHSa7Xd wvdGQ+FIBrDZH2tAowWGybLDSg pU6sSIYkF0w5AlBzNnY3XXiw A9YeSZIhllpwBc29bF5cTmTpUm H4JKtdO8IthaW4LRGhxWIvMAjs FCY4B91nl4X6TYPrLRRhOOD3 vHE0tE6ocAvhhbyswOZnxRtepl NagFadYCrnQTzpP946FIIgrKtv HjV7JXtyNHJkPL64PL98zBCy j5D6kTA9G3UzJFSsfmzunxbunO C2BKGaGDTrrZ99eTKcRAobDl4i h5W6p350CXLtWROzeI59As7z dCdhAORjgBGMkJ0wnkfww5zezb kkGrBsNWYdDLk7QXb8ACFthTqn IhLjVWV1VxL4XTN3yHKgeP2l dWaqmqxbpX2xAyq+TUFMRTwvdG Q+QAOlDTC7rYorHKwuBDTddO6j AFUhK6p0LrEjDwC8CRinY0Us HNSjiyawUl06wG0mDmWeAcA0JC btU2ZvneG1KKBrcAPyYLubNUL1 R43pr7B4PTPwUNZyTUP6cJL0 lS5kcHkkeqjmtMSmfZayghWibH xjOXwoZWibO680VXGgrSwxWjJj gCYInVAmAQB9BD35NV10S1Sg PjwvdGFibGU+PHRhYmxlIHdpZH BuCAccIRSdLdDejHvtYS1nOc2j HWJiVIPwxBmorJNlOoOca0sa RDYcWCeaCG1kqUxaF8PudFE5GM Xlt8x9Lj93I65nH7OnrKO+PGNv qBE4hEN9dP5eKvCyCqW2NFtu U270BcHutLVwRklhc1rwc2kyrP p4AiWkMDGojoZnxJjaUUA7c1Dn Hl02U43eGOnlPLSjTHTmMNIz NYLlfJmvhq7rpJ3qKd3+PGNvbC P6hLG1nS0hVpGdKuU0DJmgB200 ElYztMIzUpylZ99vJ3HkfOC+ BJGpJla1SLSgrUwxJZ7xeTMjLJ nbUc1yGUR5QiRfQtKiEZzeO5Pz PNXijuhvulakdIP5HKGeWDBo zZ24Sq4piYkxMu3pBMTkYPI6XL GfxGHsZ5UcfQ1fFkMvXOYqDSMe L6JydQApMMdkN614BSggRpV6 TXJsroLaE8XeKWFvtUcpOtZ8q5 R1Fx9KlVhioFQbHP7gFvMlAMc0 D5NlDfo7ZKTyaDahNE9aqRDn GAyfKn7mmQrztEvcXZ1oMFQhbo wfm033VnWgw2ohDTCavXTvFJkr LCX8M03md1S0TZYiKNZuYVT0 pMZ5xU3poVtdtymvoHJqjHpbke KptTwcXLcqDMzzP700RIHbrFaw PuCSGmf6C4YkGrt6AIKvvEsq ZF5xqETqSMxiKf8mgAjexJnqLH 1oXSXnnrego255RrEft5puDQMa zSMkWTcuYCY5B34rg6P7HWQx QCSxMBX7aZN6oK6muPmzeffkdJ QmlZtavsRciNjeETobYNwwH454 FZPdbCrqJp0GIhr2G0DqThn6 ATKkdRxcDN7aoYCaQVkxUb2ppX wlyTxlPV7qYKSekhwsz969AqRc b2lxYXQyyHKlTJueOQC7D51q z6T7WZZmZXWvEGN1cQU5fI2siW lnbjogbGVmdDsgdmVydGljYWwt JRnjU792BZHsoIwnSoGqmKPh OjwvdGQ+OU60bh15D5IxTbkdHy e4MKCeKEV6mNS8gB6xBXLuZUsx n4T1wMP7I8CbbsVixo0zp6ol YXB (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 [facility] HISTORY PHYSICALon HISTORY PHYSICAL HNO ID: [id number] Author: SCOTTIE COLLINS MD Service: Hospital Medicine Author Type: Physician Type: H&P Filed: 03/20/2024 01:23 Note Text: HOSPITAL MEDICINE HISTORY AND PHYSICAL PCP: Hany Olivares MD PAGER COVERAGE: Please page 8th floor [phone], non-8th floor [phone] after 5pm . From 8am to 5pm [...] Mcgraw on DATE TIME via verbal communication. Head Insulation Board Saw Operator: HARRIETT Transcribe Date/Time: Mar 19 2024 4:07P Dictated by : BENEDICT REBOLLEDO MD This examination was interpreted and the report reviewed and electronically signed by: NAKIA CARRINGTON MD on Aug 5 2024 4:45PM EST XR SCOLIOSIS PA STAND/LAT [...] 01/26/2023: C (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 [facility] MRI LUMBAR SPINE WO IVCONon 03-19-2024 MRI [...] Mcgraw on DATE TIME via verbal communication. Head Insulation Board Saw Operator: PSCB Transcribe Date/Time: Mar 19 2024 4:07P Dictated by : BENEDICT REBOLLEDO MD This examination was interpreted and the report reviewed and electronically signed by: NAKIA CARRINGTON MD on Mar 19 2024 4:45PM EST [id number] [facility] XR LUMBAR 4V AP/LAT/ FLEX/EX Ton 03-19-2024 [...] Spondylosis of the lumbar spine as described. Head Insulation Board Saw Operator: HARRIETT Transcribe Date/Time: Mar 19 2024 3:00P Dictated by : ROD MALAVE MD This examination was interpreted and the report reviewed and electronically signed by: ROD MALAVE MD on Mar 19 2024 3:03PM EST [id number] [facility] XR SCOLIOSIS 2V PA STAND/LAT on 03-19-2024 [...] spine. Postoperative and degenerative findings as described. Head Insulation Board Saw Operator: HARRIETT Transcribe Date/Time: Mar 19 2024 4:11P Dictated by : ROD MALAVE MD This examination was interpreted and the report reviewed and electronically signed by: ROD MALAVE MD on Mar 19 2024 4:33PM EST [id number] [facility] Inpatient Patient Summaryon 03-16-2024 Inpatient Patient Summary [place] [id number] Patient Discharge Instructions Name: ENRRIQUE MADERA : 1965 Patient Address: [address] [place] [address] Primary Care Provider: Name: DEVI MUNOZ DO After you are discharged if you find you have any questions, please, call [phone] ext [phone] to speak to a nurse. Discharge Diagnosis: Prescription Information: If you have been given a prescription for narcotics, seek immediate medical attention if you have any difficulty breathing or any sudden status changes such as confusion and sleepiness. If you or anyone you know is experiencing suicidal thoughts, mental health, alcohol and/or drug addiction problems; contact the [facility] 07/03 Crisis Hotline -Text 4HEYJ ir [phone]. If you received any narcotics, sedation, or [...] business decisions or sign any legal documents [facility] would like to thank you for [...] in the (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 Normal [facility] MAGR Intraoperative Recordon 03-16-2024 MAGR Intraoperative Record MAGR Intra-Op Record Summary Primary Physician: JACINTO OLMOS MD Finalized Date/Time: 03/16/24 08:54:32 Pt. Name: ENRRIQUE MADERA/Sex: 1965 MALE Med Rec #: [id number] Physician: JACINTO OLMOS MD Financial #: [id number] Pt. Type: D Room/Bed: / Admit/Disch: 03/16/24 [...] Diane RN Baumer, Erica RN Role Performed Engine Pilot Engine Pilot Engine Pilot Time In 03/16/24 08:50:00 03/16/24 08:50:00 03/16/24 08:50:00 Time Out 03/16/24 08:56:00 03/16/24 08:56:00 03/16/24 08:56:00 Procedure SI Joint SI Joint SI Joint Injection(Bilateral) Injection(Bilateral) Injection(Bilateral) Last Modified By: Shahrzad Ross RN, Erica RN Baumer, Erica RN 03/16/24 08:54:22 03/16/24 08:54:22 03/16/24 08:54:22 Entry 4 Entry 5 Entry 6 Case Attendee Jody Crews RT (R) Massimo Moffett RT (R) Rashmi Giang RECEIVING TEAM MEMBER Role Performed Tape Sewer Tape Sewer Scrub Personnel Time In 03/16/24 08:50:00 03/16/24 08:50:00 03/16/24 08:50:00 Time Out 03/16/24 08:56:00 03/16/24 08:56:00 03/16/24 08:56:00 Procedure SI Joint SI Joint SI Joint Injection(Bilateral) Injection(Bilateral) Injection(Bilateral) Last Modified By: Shahrzad Ross RN, Erica RN Baumer, Erica RN 03/16/24 08:54:22 03/16/24 08:54:22 03/16/24 08:54:22 Entry 7 Entry 8 Case Attendee JACINTO OLMOS MD RN, Lianna Role Performed Surgeon - Primary Engine Pilot Time In 03/16/24 08:50:00 03/16/24 08:50:00 Time [...] Labeled Other Concerns n/a Addressed Time Out Jody Crews RT (R), Time Out Time 03/16/24 08:51:00 Participants Aranza Siegel MA, Rashmi Giang RECEIVING TEAM MEMBER, Shahrzad Ross RN, Verona Boucher RN, Massimo Moffett RT (R), JACINTO OLMOS MD, Dion RN, Lianna Last Modified By: Shahrzad Ross RN 03/16/24 08:51:57 Patient Positioning MAGR Pre-Care Text: A.280 Identifies baseline musculoskeletal status Im.40 Positions the patient Im.80 Applies safety devices Entry 1 Procedure SI Joint Bod (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 [facility] MAGR Preoperative Recordon 0 03-16-2024 MAGR Preoperative Record MAGR Pre-Op Record Summary Primary Physician: JACINTO OLMOS MD Finalized Date/Time: 03/16/24 09:10:51 Pt. Name: ENRRIQUE MADERA /Sex: 1965 MALE Med Rec #: [id number] Physician: JACINTO OLMOS MD Financial #: [id number] Pt. Type: D Room/Bed: / Admit/Disch: 03/16/24 [...] Signed By: Adrianna Ceron RN 03/16/24 09:10 [facility] Patient Handouton 03-16-2024 Patient Handout [facility] Progress Note - Nurseon Progress Note - [...] further nursing questions and transferred him to borderer to schedule his next procedure. [Electronically Signed on: 03/16/2024 11:47 EDT] Diane Aleman [Verified on: 03/16/2024 11:47 EDT] Diane Aleman [facility] Lab - Reference Lab Resultso 03-13-2024 Lab - Reference Lab Results [id number][facility] Outside Recordson 03-13-2024 Outside Records [id number]#1.00[facility] CNPShivani 03-08-2024 KATYA Telephone (NIQ) -- ENRRIQUE MADERA ([id number]) 1965 M Date Time Provider Department 03/08/24 KIAN MCDERMOTT During your visit today, we recorded the following information about you: Dionne Caballero 03/08/2024 10:36 AM Signed Call received for Kian Mcdermott APRN.LIVESTOCK CARETAKER regarding Enrrique Madera. Caller: Self Patient Identified by Name and : Yes Reason for Call: General Question Please return call Is there any additional information the provider should know? No Last Office Visit: 03/01/2024 Next scheduled appointment: Visit date not found Best number to reach caller: [phone] Best time to reach caller: any Is it OK to leave a detailed voice message? Yes Dionne Caballero Diane Gonzalez, RN 03/08/2024 11:12 AM Signed Neuro SPINE [...] called AND wanted a call back from CULINARY ARTS INSTRUCTOR - Pt have questions regarding surgery Diane [...] [M51.37] Order(s):XR LUMBAR MOTION 4V AP/LAT/ FLEX/EXT [2198215] Order #: [id number] FUTURE XR SCOLIOSIS PA STAND/LAT 2V [[id number]] Order #: [id number] FUTURE Prescriptions as of 03/14/2024 - BUTRANS [...] NEEDED, # 90 tab(s), 1 Refill(s), Pharmacy: [id number], TAKE 2 TO 3 TABLETS [...] Erectile dysfunct (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 [facility] Coding Summaryon 03-06-2024 Coding Summary HTMLBase 64 RzwegppcEJb1xDv+PGhlYWQ+PE 4ATRIzO57kaSAqvE3cA5GRHVcP VflyYOWWDUfFAwGuzcUsXZ6ytP NjZXJu IC8+OK7mPTHtQjcibFKuy5R2vK X8B38xrv2iCUdbbEC5CXJwCzWy wqcvb4grnWb6KTxaYrjuOhLj CGSzcQ65XHE7bG01Cs10bGAnnQ Sfj4rqfNd9GhByBFToCGA8kMos UPmoa6MeVJAyY22guJJbo5G2 AUViyWgolAFlIkGhxGS4xW7kCI bxjsbcd0vygkxiGsf3ng92zSVc d4K5eII9E1RifjD7IKExdMYd AqfqkERTfB8dgdfjd5wtqdgcQv ZmTJDvMBi8TIl5UGSddNepVyOr SW74IDX8OQHazpIqV3EpWJLu uCflEpF8f4M3Eu5AU3DNAtatZ5 VNTUFSWTwvdGQ+BZ95bh07E5Iz FxkrZed9YHJuZHR2mRK3cE5i LQTwCZkll9D4sWK5F3AacdCkdr 9ws4ybJGDxCXumJ78rrCOws5B1 FLKhnFG4DDGfuTvwMtKsbD65 Oyc+HCAgrCgyk6UdEgbet5nva4 kehEx4WtzmORLtwfFcxWwtAMX7 e4VgMf6aBGXtkXM7hVV3oA0b HdPqKkK9LCzxR998QwKuyXVtOw wwU18uL9SnxVK+LYScLlk4HBIq vTqjMY8wT5JmQDYselcnsQGq bKgvFM6kFUFyprswUJCvuW9eJO SzJ9f0DrVvVeS8NFexP2SwVQTx qrupSg29jK2aAvDcIbV1ISzl Q3PcenO4EHXuyAKuDHpxBSS7F1 2rz9D4JHQoVXVeDHS7dDP9hM1q bGlnbjogbGVmdDsgdmVydGlj AXjqNHtnE040ZXPoxMgoLfBvVE luZyBEYXRlOiAgMDcvMjMvMjAy NDwvdGQ+XBVhBUJ2gSuqNBDq fORjJJfrKo7rmLyiuDykMY8oAY FiboxmNMAmfL1dHUHdiOWlxFoz ZJ9uUDMbmbzqd934IdBlEDR9 HZEzfFYpD9GdqX6yZtXyRUXxFB GoG8AufBRgNLiuP195CVbvTxH9 OEHjsjLqH0RmJSVvjBxjKqP2 w0Q0Hw0Ti5BieklvP8NmwUWzUw NhMpnoSHq3A2MvLscvlPQ+PC90 XNDwST78YWw2RAI5cBipVRmh XVXvO7YoxR1cSvCwVMGgDEOrDg c+PHRhYmxlIHdpZHRoPScxMDAl TrBdhYhmPM2bJz5oUHNhXYSs sHvrpYAjCgCzb8beKJTfPCkxQZ 5vyGdqK4FwtAY8PVQmp6f7Oz99 W42eC1NdtYF+QTXzaCE9bWO2 xO1hFkLfTyK2EMjlB494ScNzjH NsAoltb6ril3mjyZg5TqT1MDMm phFnjJobWCJ4w9AgZm91J49x IHdpZHRoPSIxNSUiIHZhbGlnbj 3yhP4cDk7+QCQdiKZ9dZJ5yP9a JoZjFhZ5WCslX306PcMqhXUp Ygmef7dcm4cenZn0LmKqBTMemc KfdQivBHR9x1VtBa24Q1MfvXio l2TlVna7pb32iYYqi9W7tQC1 V5LpCYPqhlxarNWnvXrrHO8rOQ VillmeMDDdfH1pNCVaM3e0YxNd KsS8AWtlH5ChyzC4QIEpyLKk XOWeoKLPlN1bzmrii5nppcqfOn XwKNGsJAy3DCn1VRIooPsxYvRy BKN0RkO8RQG5fFCdrW5ttHra eejleF8uLmn+MTK1kOOwsBAHCR 1lOjwvdGQ+PIMySTE6hWqtBRmu WKFudZ9wJTAzK7s8QrPiCtZ9 KRnwD4KrtuE2YVHkcFAiDYUvmT FPwS1cxktpe7oqteavMnPfXRYm ZAt0GNn7YXYkgXjbTeExVIT1 DeO1GCQ9cIJsxK8woWzuekxfkG 9wOyc+UcxtgXzaNTS0ACs3A9Qe Cbh7AVTujVjgTR1rhLMcNSey Gv1jbSctxPreFA6pFFWjpgrvo2 83MdDkw5rqNVYdkSSkGKxxKPU5 X13kf8P6YVXbUCCdOLF1jEE7 sA0oaKblwknhwNVhnIufzwTywU xcIBtdUOehD103ZAHpgJgoXbMd WEd8S5JsPnu1UUVpqIkbEV6r eXGrKLvwAz6fiXdddRkyET6sMH Nsnfumr688MhKsa9thIUSvuWNx USbcFKZ5Q47ot4D3GHFaNLQt FPF8tWR1dI8yxMmpmnsigDLlgC cbfsMshGavEDsgGBttP794HURq hApqBtOpiAh0J4VcIok2AKEc tCzfGP3uqRVgCMxqXx8jhRqbnH uyJX4cECFybhltl974NxOai5ar SGRfuHCaYWvwGRW5H07zq4J1 KTFgBCTmWFW4qMJ8oK1mfXhpqt ogbGVmdDsgdmVydGljYWwtYWxp Z500TFRtoIvrXgMzbDhuzwDp QPceUFk8K0WpAitbtZX+PC90YW TzEF92uURzyCQzn5nakSi2UyBb BQFbZYN8cJuzOWiut7ThLEOb H14zuRAzn8G4BQQrrPqxeZMnWw DlcTG2iU3oUSegykawe2wvazop Bgbbk6qxhv48dM38Y32zKSnl IBVlVVIlAORiYCIzwJmdio3qsS 9wIi8+VGLkeJQ2jTC2jJ0zMIOo WkA5IQcoQ309TdEwkIHoBbsj s5wbf9gonUy4CdL4IADwylMvpC dnLIG6h2MrSh11S11pYJiiEHVj QGHsDNQcLKFstAljsh0yaV9m Ii8+XRQkkKV4rVI4aA6cSoLxXx D7QPnwJ329AmCqcQXuNbpvU40n W2ZwxMP+WBUuWvo3ZVOotAht CI8xhZKcTVnpIb2aVCH2IjTmGr VuLQxqD0ElFFUhnnetpxxodUX6 VJIpTFAonY77Eb7guXqbSBQv yBELrI9vmkpwi7mxpwswBqSvCS JeFEz3RSg3FXHusInqZnWvUEN9 WeH0QRT4fSSpjN6ltQopyycy fM3aS7OgUHHgckhdFk28aL4jYc YsKaG9SNrdKqe+O5GKNAZNLLYU ZZ9ZXhIJYZ70XU41vEYlv5S4 tWG7D1FlFRBrkxhmaftxkEO7PD VnNAFhcN76cVNbOFinAj6rp2A2 q295LKRfMZGsdK74Bu0gfCyn GYTqvNPWiJ6objaco2xadpfcFt UbCMPfMCu1GHb6HAWfjAhjZyCr ICR3RvX5JPR5jNDjlM5qrEeb cdpstC1nLmj+OCRoFEKoSGn5Tu wvdGQ+IRVyTHP1eMroTMwdUJZb tM7fDAUyO7a7AtAaIeY0SShd N0RoWMSfcaonPp20vT9eGiCjEq B2CMldA7UyihL1VOWxgIVhJEpk RXF1L25cl2W0MEZaKOZoZHH6 sIY3aE8kxHnjieucbXNizZioej YgjQbdTOyuKFchZ705UYQkvOzt HbK5IWqgPXGkUC93RQ99oKFd n4Z6fUU7H7DsBMLyztgkbevwoE W6SDZdKVAogH47jDLgEWkwWs1f r6X9q293VYGsEFBffQ33Kf6i tEwyGOGgoHQZbR0hewoum7grgo biEtEzEYSgCIg9KRm0OEFkaLgj HcJmLXS9QcD2ZGC2mJHrsK3v dHvnheeatH9rKga+TUFMRTwvdG Q+NRZuVOX7bExkYGugCWImhE5j NPGiY1p2SbQgMeL6HJmhN6Vu DKXkfztxGw03sI3yTdXyEtK4ZH waZ3RzezP7TXYjaUOeHNqcUEP2 U68yz0I4CRYuWKJbNUU5jBQ4 pN8rpEryqdpspVTmmXrkyeRvmL ukNRwuJEbxT044CWPjzTtzCtRx xOQHaKZbPOK3JK37PJ56E1Nv PjwvdGFibGU+PHRhYmxlIHdpZH CpVZnnQOJdHaYzqNzfBD4lEw0i WMRgTYJopClksAUzNuMuv0nz IJIjSNooFK8owLijM1DfjAG9YC Chl9v1Jw21B03lS7QhzNQ+PGNv yCZ6rWU6kA5cEfUkAhR3NVgk J008YnFmjYDiEaqud1dma1hjrU f2PfEwYZRhigHlvRqpDWL2s8Wg Ve29J73vTCpmNQJlEPXsLPSj FTUraKuecj3xsA4kAu9+PGNvbC E2wZN3aP5uEaMaBgK5CJnmN810 EkKteWYvNuhdO90eY3LmbSL+ AJRpDrj2EGTrlPjtZI0buFKsGQ dbSj9pTWW2JfCwQpMvMEppN0Lx HESlbqozgncgxLH5HIBgITWa tV67Jx9hsHqfCa2iIEXtEAZ7RE VtkFUgE5WroC8zBcVaSSSbYTZs F4LqrWWtHNqyL733PPffRnI6 YWBvspVxT6AaPOXrrGytZbU5z9 E3Bu6BzMisvULqMA0wLiImKNz2 N9JaAfd4WGCizJvsHD2xmTPf RYznHv5fjBryhMltIK3lDNAman kmn919IyPht5meGCYjeGDhZRti PKT5W88yt5B2JNGhSCWgCPT5 zQG9qA1reOsdrcbnnIDjmKascc NuvDxjRBlfQMioQ914PWKukKwx PgGFFwn0C1JsTgc1OXDfoKla UI2byTYsSGsvPc3ngGyiuYdeRZ 5sSCCkcnfpa599EcLmc9ueVWJh iVOjNOkkNTW0Z86wt8T7UTAm ZIBvPPQ4mMV4wO3prCazgxbbdC ElzWaviiBgsPfnKVweACqeC561 ZJEfjQdoLm6WDfh3R8NjUij6 LUDpwHaoLU7jlZVwXNmaVq2jaD pflTsbBQ8vQIBawycnp251NmNu z9zpGJOkgRWvIWmrPVW9U77p s0I6GIIsSIIsHZL4kYB3vF6csI lnbjogbGVmdDsgdmVydGljYWwt JXteG084DYHfrKguAeNssFMm OjwvdGQ+ZK19ea44Q9OfPbgyCw c1YVYdKAQ3hBZ4vP2wXYKvIMsi v3T3fXR4I4IejaLpmv8po5gy YXB (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 [facility] Progress Note - Nurseon 02-13 Progress Note [...] increase Butrans to 15 mcg patches. [facility] Butrans [facility]. Called patient to notify that the provider is increasing the Butrans to 15 mcg. Notified patient he is not to use more than one patch at a time as it will be above the recommended dose. Patient verbalizes an understanding of information. Notified patient provider also ordered a topical medication that will be sent via mail from [employer]. Patient states he is willing to try anything. Patient requests refill of gabapentin at this time. Patient compliant. OARRS reviewed. Prescription proposed to provider for review and approval. [Electronically Signed on: 03/08/2024 15:29 EDT] Radu FOSTER, Ayden Echavarria [facility] Consent Formson 03-05-2024 Consent Forms [id number]#[id number] [facility] Inpatient Patient Summaryon 03-02-2024 [place] [address] Patient Discharge Instructions Name: ZHOUENRRIQUE : 1965 Patient Address: [address] [place] [address] Primary Care Provider: Name: DEVI MUNOZ DO After you are discharged if you find you have any questions, please, call [phone] ext [phone] to speak to a nurse. Discharge Diagnosis: Prescription Information: If you have been given a prescription for narcotics, seek immediate medical attention if you have any difficulty breathing or any sudden status changes such as confusion and sleepiness. If you or anyone you know is experiencing suicidal thoughts, mental health, alcohol and/or drug addiction problems; contact the [facility] 07/03 Crisis Hotline -Text 4HOPE to [phone]. If you received any narcotics, sedation, or [...] business decisions or sign any legal documents [facility] would like to thank you for [...] the middle (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 Normal [facility] MAGR Intraoperative Recordon 03-02-2024 MAGR Intraoperative Record MAGR Intra-Op Record Summary Primary Physician: JACINTO OLMOS MD Finalized Date/Time: 03/02/24 09:59:42 Pt. Name: ENRRIQUE MADERA/Sex: 1965 MALE Med Rec #: [id number] Physician: JACINTO OLMOS MD Financial #: [id number] Pt. Type: D Room/Bed: / Admit/Disch: 03/02/24 [...] Gonya, Kellie N RT (R) Role Performed Engine Pilot Engine Pilot Tape Sewer Time In 03/02/24 09:53:00 03/02/24 09:53:00 03/02/24 09:53:00 Time Out 03/02/24 10:00:00 03/02/24 10:00:00 03/02/24 10:00:00 Procedure EPIDURAL STEROID INJ EPIDURAL STEROID INJ EPIDURAL STEROID INJ TRANSFORAMINAL TRANSFORAMINAL TRANSFORAMINAL LUMB(Bilateral) LUMB(Bilateral) LUMB(Bilateral) Last Modified By: Shahrzad Ross RN, Erica RN Baumer, Erica RN 03/02/24 09:59:36 03/02/24 09:59:36 03/02/24 09:59:36 Entry 4 Entry 5 Entry 6 Case Attendee Massimo Moffett RT (R) Rashmi Giang CST, THOMAS F MD Role Performed Tape Sewer Scrub Personnel Surgeon - Primary Time In 03/02/24 09:53:00 03/02/24 09:53:00 03/02/24 09:53:00 Time Out 03/02/24 10:00:00 03/02/24 10:00:00 03/02/24 10:00:00 Procedure EPIDURAL STEROID INJ EPIDURAL STEROID INJ EPIDURAL STEROID INJ TRANSFORAMINAL TRANSFORAMINAL TRANSFORAMINAL LUMB(Bilateral) LUMB(Bilateral) LUMB(Bilateral) Last Modified By: Shahrzad Ross RN, Erica RN Baumer, Erica RN 03/02/24 09:59:36 03/02/24 09:59:36 03/02/24 09:59:36 Entry 7 Case Attendee Shikha Guzman RN Role Performed Engine Pilot Time In 03/02/24 09:53:00 Time Out 03/02/24 [...] (R), Massimo Moffett RT (R), Rashmi Giang RECEIVING TEAM MEMBER, JACINTO OLMOS MD, Shikha Guzman RN Last Modified By: Shahrzad Ross RN 03/02/24 09:54:37 Patient Positioning MAGR Pre-Care Text: A.280 Identifies baseline musculoskeletal status Im.40 (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 [facility]R Preoperative Record MAGR Pre-Op Record Summary Primary Physician: JACINTO OLMOS MD Finalized Date/Time: 03/02/24 10:04:32 Pt. Name: ZHOUENRRIQUE./Sex: 1965 MALE Med Rec #: [id number] Physician: JACINTO OLMOS MD Financial #: [id number] Pt. Type: D Room/Bed: / Admit/Disch: 03/02/24 [...] Preop Departure 03/02/24 09:45:00 Last Modified By: Anil FOSTER, Travis Paris 03/02/24 10:04:27 Post-Care Text: Patient is prepared [...] Signed By: Travis Ma RN 03/02/24 10:04 [facility] Patient Handouton 03-02-2024 Patient Handout [facility] CNOVon 03-01-2024 CNOV Office Visit (SPNSMN ) -- ENRRIQUE MADERA ([id number]) 1965 M Date Time Provider Department 03/01/24 1:30 PM KIAN MCDERMOTT NSMN During your visit today, we recorded the following information about you: Pulse Respiration Blood pressure Weight 89/minute 18/minute 132/71 84.8 kg Height 1.829 m Kian Mcdermott APRN.LIVESTOCK CARETAKER 03/01/2024 3:34 PM Signed SPINE SURGERY NEW [...] for thoracic compression fractures. 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 [facility] Coding Summaryon 03-01-2024 [facility] UixdskfnPRb0zUg+PGhlYWQ+PE 1TKKPoO72uyPDmkX9zO8TUASgE JfxqGDLUFPdNLsUubqQiJK2eqT NjZXJu IC8+RB6cRBImDfdbmGEcn4F8kE U2E81mdg0jQJadwSQ1SDVeLlZf xdjvt8yicXj7DHuwRllkUmZs TYIjyK93XWE8fD21Tw92cVJkkZ Ahk3edxDb0DtZrOCZpONP9aZmr ENhyz5QkHFTfL38ltWLya1R4 DKIsfTvohBSjQcEawLK6jD5zKX vtesclp5vlbmvyTjf8py33qLNc z1F0jPP3Y6VsleT9HQIsvYBd NsruvOPWcE9ccggsc1jcshblGt MwYPOkJMe6RBc9UYEltTmzVwXi LR35SSG4QYMdkaLlJ9TnTMOl yBoeJjZ5x5Z2Ta4LZ7VYEbtdF9 VNTUFSWTwvdGQ+GT09zv43Z7Ry FpqdCoj4OWNbHRV1rGB8oI2x XNVmEAxic1H4ePT8B6DylhIznm 9lh2ayPZJsBDdfR15eyJTli2I5 KWYrzFR2UEIpcOhkBuEcvC14 Oyc+NKOvrHuku2CcHajgz6ibz1 yizNz2LxyvTZPhwcYbzIpmZSE2 t4CdDr9xRSQmlLL9cNV3dY1p ErMkPcV9WKmuD859MwDxdWZaKb avE85qD0PdaAX+KLBoQbc4IJYh kDjnTJ5vH4OvTDQykbjjaRIy sRapTR8sUAIcjztzFMKaqF1bFX SoG3i9SbVcFlI4ZBkfF4LpSGXe knprIc85iX4bOeDuJpG2FZkx B2ErrzQ4AKRvsUJmNNvcMPN2U3 1ui5S0IGSmXTZfXVT7iYL3jX6d bGlnbjogbGVmdDsgdmVydGlj LHheQGyqA206KFHbsFmjUgOiFV luZyBEYXRlOiAgMDcvMTgvMjAy NDwvdGQ+NPInYUA2kOxlWEWg mZYyQOzkWa5dmHuzvIncMQ8xAB ToksbkLKXarY6oHFKjdNCevIgb LM9bYZNdlgper038ZxCmJFN1 MPNdrFJkK1SfxR1sXsChQKFrEZ MaD1GmiAHsIUzzK422PCrfEpE4 HLRyfmOhC8RbKTMupKhwVyD3 z5L3Qm7Ga4GhjrauM2MpcFHgCf NgWrmfESh6G3FiYzhdvQO+PC90 WAScPO96RHc0LGV7pSuwUVeo OWTeH9HuyT3cGbDgHWPlANDbCf c+PHRhYmxlIHdpZHRoPScxMDAl LsDyuTbjWQ3cPg5cGSOqTGEo xKkarYOnSwAci1fvYVRrKAflQH 6xpHshC3PprEC8ZGOxw9x5Ld28 Z19bE8VkoOH+MTTwkBX9pDB7 wE7wWeIeEkV9AMmrY463ShJbxN VcHdtmw0uii9svhWq4RjB1IEAv uoSjqAemUAW4t6XfSz74N49p IHdpZHRoPSIxNSUiIHZhbGlnbj 8guF0hNj3+VPYjkBE1jKO5hC5p SrUdKzG6EHtsI763JbPjmEPl Plbek3zzv4yhpXw4KwFpQPBgnc RbhGqoDEQ6j2IiTj00S8PuxUkd f2KrHuu4rq72xKWcq3M7fIB0 H7UuZQHzhmtcsPUdcTagGG9zUZ SgqmqzQMAdtH2pQJIwB8j5FhMg UzU1ENkiD5UwazD2DOMjtBXt KHVnaCZGsN2zazobr6gluqaaYe SlBKMzKBn6WNx6LEMmlUjvBbQr BSD7QvD7OCT0aAApeL9seHuz pabkrR7tRnu+CGD5pTWqeTDOTQ 1lOjwvdGQ+YVXzUYR8vHllQEkt ACDblC9gKTZcJ7z4TlPiTmW4 PGpnF8QjdwH2WZTmxWXdSLBjqV IIrN7rrryyg0ahwoejHkNaXYSg IZw2AMl1RRCtiQdgEyQqVDZ0 JcC9LDS1jUSwlP3fbXozhsaiuL 9wOyc+OnnjzTvvGSG2QFu6L1Gp Ucr5JLIjnSzgYD0twOGcFFpa Qz9prXxqqVccSU2iGSDtdcqxf1 72TtDgp4xiHHGdyMRnZBtqIFK8 F72ji3L6DKZtBGGhQXV3mAJ7 dA3hmJxospyrfKAzhPbhwrOuyW fkGQvxBJagR565HDLrxZmjHeGn WKy4F5PfVph5WXIbaJynKP8f dXYpRVhgKa5nlUnpbQohWT7jNP Ipqalgw010TbAcu5ddICVrlVGd VFodAFD3W71eq2E6RSAqWMNl EFC9hGU4kE2dyQjrtaaerPSbsE ghxyZmiThbWPkqDLvbU452TVDp aWrpNmBjoOj5F5NrPch0CPVe sMklMO4vkOYqHIpuCg1gvYtjuT wwKK9mUOHosrggt388RgRic7tu KWQzlLJrKFmmULR6Q74ig1K2 LGIxJHCfIZR6yNK8mF7ltJptjh ogbGVmdDsgdmVydGljYWwtYWxp T056BFDzbOdjXnBndWwqqcVt FNrpBIp5W1RiJyevrBV+PC90YW NcIJ54eHGuzWHpl6rffKk4ZhJs PCTiWQO0uRiwTAsur1MaHZLd I71mlOSmv5U3YFCdmDnzqJCxAx DrwKI6tL0cOBjzwqdie0dawkvk Hcxse3mvov79gV61U64bBLqn ZUBzEESoXDPfSOQtfVggxx6zoY 9wIi8+WYFwkID6hSD4dH5hRMPc YeQ1FTbbG643BmVyrHPtDcgs c9kpm3elsEv9JpF5JVPjvjGqfP tyOSD5u2JpRc99U03pNSoeUDPf SMIfSWGhLNPkfUjojv1nnR7j Ii8+BLYlhSZ2vCE4kI8sUhEoFp I8GHqsK527IoMuqVImIbndQ86l I0GhfUE+OHIrZbt2AKMbtOxk CJ1koCVgOScaRy9sEXM6KfGvQi ZkTJfzR3MgMCEcezyjzhzmpIT8 CIQzFZYrwT21Xw3ygTniVYDx xKTJfF7gfftyp8rhbrhnZiQxUC RpFLi5TMt8PTTepQfdHtPeCMH4 KrZ7MYV9qCHksH1wyOrnjwnm yS1jX6QaDSXwudioFw42oH2qAc TyRgV2ITjeEen+Y5QUGTMHFTXY RF8TMbSXGY52DP31xZUcj7C0 oOK1R1OjMGXwadwednbkvKK5KL IuQQPzsG62dWNpEUbiHw1bj7U6 v225BROzWXMwcX79Vj6tcJee LZQyvSZVqE0duktml0necsywYa DrQLZaGBi1TCw8GOKyiYqcZxMm BGZ6HyO6MSE3cVFzvE5nmLcx cpmivK6yQop+NCPtEROfAHd6Gf wvdGQ+JTGlWLB5ePoePSeyWWUn dG3xCLIcR2y9QtYoKqF5NFmh I0UjGKEdlwzcWi35jA7rLhOiMf W6NSzxP0GckdL5QHBkoXSwPUlt HXL9P01co3R9HREmVZRtDET8 uVR3iK6hrVxkltvneBQzaTqeui YpsExaQRzoYEtcO915UMXjhMeu AtW9TRhxAMOlJP09FR69yOAa y7K5xUZ0F9VpCJHxtfgpsmrdoN S0ENSoBYMxuH12rHXrLMsrHk2m k1W4o387XTCeOOWwnM38Qw2u kYyrTVKsmNSXrS3yzdzhr1tegg zkEpPtVXRbYVt6BQr0VIJnlTee MzTbDXG1IgK1NFX9bNNlqK5l jKuumicqfS0wCkf+TUFMRTwvdG Q+VXXeCUY8sOesCVytGSEydW1o MBDlU7b2CnZoNoS5LEzjQ3Fw MPPxebtjEu84nG4hKpQiQzB6QR ptQ5YzafS1HEVfbDPyQJhhGUU1 T54gz3P3UOGmJMXsLHX2nUX8 xX5tpWelyfbliMNpmEbgdiStyD ewOByjVGtdQ267VKWpqAtqRv0D UT79XL73Q1MmOivgkJKwiZU+ PHRhYmxlIHdpZHRoPScxMDAlJy NeaDofUN5lFw6jEUXqJEDjsLnp vBEsPtUis7zuKICoMVemWW9h rAjkE0YpjMI4FZZwa4p9Pe46D3 3eU0OcvSU+WXRxdGI6iAN6tA5q GgCaLtC0KGotH197EtBzdLYo Ivbch1hwe9hsfFz0QoTzDEOfoa MhhGnrNAQ8v4IgLe18Z74lLAdk MERpQLEmHEJaEYCbcOvocx6k gU7qMt2+OMLtsYN9mDX5gT5lFp DyDtA0RSvlB215TvQoyHWaWznp I09dF1NbbAP+ABLqVlp7KGTm aCpyTY9gyJXeXGcqBy3gSSL8Jn YsOzCoBLqqV6EwFOHmvaqtloof aGG9ZCWdYAJohX07By5vyAyz Rh7iIGKzHEW5RRYcyMWwH7YjxL 9eIsNsKREgREZdJ1HhdYBsJZrv Z282JVuiWbM3SFVoorFlI7Ab GBIgqVbzAxR9j6K4Ge7PjNxrrC MrLO8wHsOgGXp9O5IoUth5KZGm fQcyBQ6qmPIxNQwuKj6zqNwb rXbfHA7pSSVuvdvez640IoRcw3 ciWEWyaZYhUCusYZQ5J45lv5N1 ZRMbPKTpAXE5tHH5mR4qxTlb bjogbGVmdDsgdmVydGljYWwtYW wfX794FGYejIpeMgBUDqd8E5Kx Wzf0GNPjhHazAD7khYFmLImu Qj7gwSiyqFldEM2mKPRrytkns8 94PeIse9tyOMAwuCInUIsqWPZ2 R91qz0G9QAXsXGXtYCL4sTY1 bK0ouKkyhtofxEIkqMgivvJfbE dkOEboDUiyU527YMKntAluSv0B Mcg8X6EmBtp9KVNwvVsdFS3q aGQuWBofNp7flRvclIheBQ7sQX Sroeyre060KwXfh7qjLMKosEPm LTwpYKA0J02tf4I3TDPyYYSx SDV9fCN9fF4urZtaeeivnABvuJ uzzsOsaOshUSktREdeF530YZPy cDsnPlBheWVyOjwvdGQ+PC90 oa94K4VhMxymLqw8YAGbVHH9jB Y8qS4mZYNxHCkhp8K6kVU9C8Io ndSvgr0tu6vqLPTtGMykD92q bGF (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 [facility] Progress Note - Provideron 0 03-01-2024 Progress Note - Provider [id number] [facility] Progress Note - Nurseon 02-12 Progress Note [...] 02/27/2024 10:12 EDT] Ayden Lovelace RN [facility] [place] order for Medrol Dosepak sent to patient [...] on: 03/01/2024 07:45 EDT] Ayden Lovelace RN [facility] Progress Note - Nurseon 02-12 Progress Note - Nurse Patient called and spoke to milk delivery driver, Priscilla, stating [facility] pharmacy does not have stock of the Butrans patch that was prescribed to him earlier today. Stated he spoke to [facility] pharmacy in [place] and they do have stock. Patient requested script be sent to [facility] instead. Spoke to Moustapha, pharmacist at [facility], and cancelled prescription. New proposal sent to [facility] for signature to [facility] [Electronically Signed on: 02/24/2024 14:40 EDT] Diane Aleman [Verified on: 02/24/2024 14:40 EDT] Diane Aleman [facility] Progress Note - Nurseon Progress Note - [...] before when the provider is in office. advertising copy writer calls gpn into [facility]. [Electronically Signed on: 02/14/2024 10:43 EDT] Aranza Siegel MA [facility] Outside Recordson 02-07-2024 Outside Records [id number] [facility] Outside Recordson 01-26-2024 Outside Records Patient failed to at tend appointment scheduled for 01/26/2024. This is the patients second no show. [Electronically Signed on: 01/26/2024 10:49 EDT] Priscilla Maya [Verified on: 01/26/2024 10:49 EDT] Priscilla Maya [facility] Progress Note - Nurseon 12-15 Progress Note - Nurse Patient called req uesting refill of Gabapentin. Patient is compliant. OARRS is reviewed. Order sent to [facility] for review and approval. [Electronically Signed on: 01/12/2024 07:24 EDT] Ayden Lovelace RN [Verified on: 01/12/2024 07:24 EDT] Ayden Lovelace RN [facility] Coding Summaryon 01-05-2024 Coding Summary HTMLBase 64 VaewgbeoUOu6vXw+PGhlYWQ+PE 5LJCTdF31jxZVhdZ8zY9BQKZzH IogyBXLDAAhDEsKyirRnEP7ccP NjZXJu IC8+CC3hDDXyHyqeoNGrp0S8mM R9F88xwg3vQHvcaQM3PCVcFsIe nmuym3npvHa8VNlcWtqmOnVy FUKnwV09JEM3fU26Um38pCZmtK Yzl5oyqQk9JaMvKLFaVFR7xNfu LWhtw6XwRVKqH97fiXIzt2Q5 LKYztSzwnIYyEiDlpCU9dM9aML fhacmci7xwxgblMun9wu43kWSn q9A2mMF4F6CxryM5WDXxeDKf PuyfpLPGjV9afchqe5soqfgwPr LiQGOeRRu5PWt5TIYyjKvbWfDe IL48NTZ3RBOarbRnS6KfCEGi pTyqIyX0j5S8Im6KF6OOBtntK5 VNTUFSWTwvdGQ+ZD53ni23S8Gd SpigGzl6ADOwNLO6pYT8vY4j WLTqILlfu0C0hIC6W9AazrVapt 9gm6mmSOUkOAnxT92azASbl7M8 ZEZrcOP1VPCcnRblVxZtzO47 Oyc+XETseUylr8HlSeifk1ynx2 eetVl4SzbjEFPwupNczXznTIR5 d5SpIu9oBCGhaOS4wXZ4yT9a ZvVvQpQ8QNpfQ192PyNabPPhWi zlW74zE0JpgNS+JWXjTec5JVMu jYulHI1sP8MqWMHzxbbotUTd pCxmML9hWPKmbtfuGXFviB2oJW AoO1s6LdPqFpC1GTxbI5DbQKCb mwfoVr32mL6iHjLdMiQ9ZVob P1TmdeL7OZCocLCdYIjvBSR3C3 3tr8G6XPElRFIvGRA9tBE4pP8s bGlnbjogbGVmdDsgdmVydGlj GNzxRTlnK084SDKfiBsoGyCcVQ luZyBEYXRlOiAgMDUvMjMvMjAy NDwvdGQ+YNXjTUB1jEwnSAWb bAWdVTngHk1nzRbhbAjwCK1kQY ToirkuRVFwcM0fIPQcmHJefOqz HY2zIWIwftfer176HnCuMIV0 IBSbbGKnM4XfnS9rAoBdNTJmRL CmB5SytMTgYYzvU502ZWjtYkH0 OONiilTbJ5VyPHKduZynEmZ8 b7U2Xq0Mr6SdrgsaG6ChgJDjPz IiGujzKYi4W9PwDocbzAM+PC90 SNCuUE86WFb7PJV3hLfkAUfp NYOoA8OwrO6qKpUmRTBfDIFpTb c+PHRhYmxlIHdpZHRoPScxMDAl TzDvtXiqWC5zEj8fAWGsVKAa sFerwXRoQbYfb1neSKMqBLtaMR 7hgCozZ1MmkZT9DTVcw4p6Oi37 P89rW0WxgPG+IBUiiQG9xSG5 oG6pBjQwPlH2NHbrT477GdWohJ VfGnuht6iaw5ipsXk0TbE1SIZy aqChvIygQHE3q0LgVd80T21o IHdpZHRoPSIxNSUiIHZhbGlnbj 1dhT5rZc4+NKCrdBB7dIB7lR5e NeFnBoU6CSwyG731PvCfxNZz Vejca1dyb1creFm5UiHlZEWwrn MlnGzbNIV0y6IfIm07T5PauHph e7HsNpj0mn57gQGer4L3oJN2 C0ZqYVPoesjedKUqvMapLR1uWI WcteshILJjiM7kMOTmX3t1MaHg CtR1SGxiW9WfihE6CARylTXs DGKvvKSNbL1nkzdzw9cuiaksXe NxTYIqXXe9OUe7DZHbxUyxBrWs OWM9VrL1CJB2fQHilR1faIwd yngyxY6vZbw+SYT5tYHflGKROT 1lOjwvdGQ+UUEfKRF6pVgbSKcj WOEsaM9mZRFrL7t0OtAcMlA6 HMzgE7VvukR1BANolAVhMJYgcR ERkW1wbrcip0vbzilsKjMoYJBb UGp0AZw9NYCduFujFqWnQLI7 IrZ0FEH3yDZdnP8svYdnhvojbT 9wOyc+NwnqbMaaOUZ3QUl3T5Pu Arv9JZNibRceAC8qkHNyFOwv Vv7qvVxebGeqAX7tJSRdipmsv8 55IrIvd7gnFNYrgQKrTAweQTT7 X31ny4E6RIBjVVIhRWO5jLY0 jS1gbOiqobnegSKgcNmksvUmqW tjSLuoQNfbR228HBKyqUgnOwCa RGt9Y9GiIrp4KSGfqNogWD7u gOLsLMfjBp3rpTttqUxmOJ9hIW Etqlhmr110UyHtr4zqDGLkcAEy IYckBJW4W39pl6N8SNXsUMVa ZIL6xGL2rS0xvQghgwemlXGvtR xecwDixTduHKwpNLrmL816WLIr nOexMgLkwWh1L4DyRsa6FHHb wHtuNH9zyHLoHJqnCr7kiOvxgC wyOW3bEXXrhoxjy548GwFmi8ld LERtbBNgVJltNBO8I17qk8R6 BQMqVFRiKJU1aDX6lI1szZczom ogbGVmdDsgdmVydGljYWwtYWxp J844YRBryTiaKdLicLshqpTc CJduYJl9E4EbAqsyyHC+PC90YW ZbVB21lHLyoZOgs7akaQm9KbQr QEZcCWI1rFreTVqhz9RbKQYe G80edHWmz3P0DVCxhEzvrIIbDw QnsPN6nU0aNSdzgtjik3kujamp Wxhhh2xqen15yS30A46yGGsd WLPeHTZpIXYoDQSrwVosqg7jkN 9wIi8+NGZhxNG0hZF3dJ2nSWNr AeM6KYeoC813EhYdeYOcRqtu s4mew8ezyYs4OcO9TIAffdDhsM doCCR1o6JoVy86V95fFKmzXTOj WZJdUVVrAAAejEjwhs4zoI7i Ii8+WVBfzHS3hTJ6rA3nSeEeSt W5PWdaD785AyUryJEuAbcaJ38t E0YyvVG+YXUtMqc7OTApcJgz KO2oxNHzEAnkLf1rFCF1ChHbLy ZoPQlyT4WsZCUkjueokjrfnBC3 FYLhMFKduB43Hh5loYrqFLAx tCQYqL4zmwpqy7kyhmhnRaFuGG NiZAs6YNw6SGIxnHyoJxWlFMH4 CdO7HJF2xIVixD6npJtwwyro sY0qP3NlHCBfvrrnAk24tO1zBd OlFlJ6OLnyKva+C3XXLROVCGBK UI5GXzNGBU23ZE43gFSby8V3 yBD2L7CeCSEokjdrjnvysQD3EV HlHZVptI52sLFsRGehHo4ve7R4 e943EGJuEUZscJ45Av8mnJnk ZNDpfQPEgR4mqylxn4hsqtvnXf CsYASyULb7OKv0JHYudLfoQpZx PYC0PkS3ETA1yAYexZ4qwNtj zswbdZ8mTys+JWJrQQHjYIt0Bp wvdGQ+RETtDMO2qCppHYnkLOTa mT0aEWBuQ6x3FjAuLxU4RMpy X1DlCYXkxvbmSh76mG7bWmGpKp O1YIokW7UvstD2KGBqmHTuCZai GPC6O30vg9L8VXOtDHIlYTG0 iET3dH1guXugvezrvIVvcFpntx DdxIzfTFilJOpuK314XTDdaWsk CyH6UJgoLHVqGR07JL07eAVx m9P5aZW5T8QmACUfebuoeurztK V0YIFkBQDgpL52dWLvDFyxXe6x u1H1c075UVXlRAJodZ81Fe8v jMfbUBBsiXYNfP4rxlfdv1wutr rsOvZbXKKqAMl7LDw7BRTmaEjf SwRbNMF2MvV0HII9yHChrS3l tOjolewtcO3hLbb+TUFMRTwvdG Q+VVRcNXM0rBcsJXdoMVIxqZ0s XYOaH0a8AtKsYiI5AQnwV3Gp TWIwhtxgYp42dN9iEtMtHjA2CB jgB8IyojE1LRYweDXtCVpwGIW7 Q44ld4N8PEBoHZGrMOH4zYD3 mL7ujIlxsupqmWJpkYgzfeQfoO koZLbnUIfyJ100WRXafOidMsOd vSBYsZGsQBK3IJ85KD96B8Rc PjwvdGFibGU+PHRhYmxlIHdpZH BwLMtuXEKfJgCxnVgeUG3iKk9j XISuFBWuoBpwrJAaUsAbt9ew YCNoQBnsUK2qqKuzY0OucHI6JE Avs8u3Ej91W71hT5IlpBF+PGNv qIP2cKJ5cD6wIrGgNyE0VCra E530MmDmxHUwHdgli5uzb5ycoM n5EbYbFRYdwkCowRwaPFW7d6Fo Zn75H53hIIgjIDYtDYMnSCNm UAWndNyoub7qlC2dWv8+PGNvbC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 MEQ4SgJ6BBZ0xGBnhL9maXpj booqlX0tRxw+YIY6uWMrnRPBFE 1lOjwvdGQ+FIMiPBH6aMrvERrx WLPrsR5mICSlS2j8UqRgAwS9 MUfgQ4KjabB9DRQqwUBcYQGzxW YGnG5lbmova2mleifhBtBrGBAj UOu6KXn9TUAulRntIyReONC8 UhP2NBR8xUIdsJ1snHisyqimzS 9wOyc+EaubvNanJDE9PGm6K6Wi Gns9ECAizPjeGP2huKGkBOxb Qd5fgWtojSgkRA7xCMIknkaul3 53PfIrl4jgWZIhxPWbVHgfNEU2 H51hm0S4JTRxZSCgPXA5sPP4 kY8ajWeacopetMRjeMhfxoGhnB drNYpzEYseM633SSGdvQkjUuAi THo1S7AxUmr6DLFmfTklEG0t nHBiSOweRz7dlBgtgHfyWN4sOV Qhyuaia176KxFwh5duVUVdqZPa NEwhVAJ4J47eb1Y5GVYzVTKz WUU9fVR6xC3cvPrxmehhwNIxgI zgjaXuqUlhDPuuYFksQ324GEDi wTafObQswJs5X4FyRht6NKHf sDdrHL2zeIHdVJueVm1upSincC kjPW6iADKbjakyn069TkGjv6vk ULBccMLhGYmiTYK3L94bx0Q4 PBQjPDErWBY0uXB9uV7ibAehiv ogbGVmdDsgdmVydGljYWwtYWxp J241WKUrpXjzTfNfaFozrsAz JNbpYMl8I7EoDosoyRE+PC90YW XsBJ17wTEumUHkd8uoqGd3KwFo BOTaJUQ7zEgvPWhfs0QvWIPw M53lcQLmg5O2LNUksKcewIHqAz LvfVM3lF9kEPefyvtzb5ocdjkk Hlmbg7wzts99tE61D58xBKjj KCNcNLFwDBXxCPInnZttgj1fuS 9wIi8+CZSnqTI9fGX4iJ3pPTRr AsE5IGlzB232ThDgbZZwFaeq n3xiv1jhhUg4RiW4TQLhsaQgiT itFPU2g9TkMy79S78vARthEGLg EIQbQBSvKPQkqLpgot3qxV8y Ii8+YYSxsYX4nWX8zJ8cXxXjAy C7NFubG320BpWpzULkBxjuG65f L3AsdVC+KIPvXrf3RFFcbSim VL0hhFWzQLbmWt0qBBV0SoGdPr ZoCXcmZ0QtSMFjbekoskkkpOS5 FUFdPZOkfD75Pu0byAzaUECu yUBTsF2ubaboz3vyjmpnAaTtZJ YlPGp7WWa5WNGjmTyiOeFgQLG0 KtO2NVJ3mANfuB3umHbxymga vF1pH5SuETPzaeolHh68wK9bQt HhMgK5HDhwVgp+Q3SMWTDEVKYN UC5WCiUPKR87AB32tJZtp4K1 jTS9X7FfEBYuepalaopgyIN8PH DtACZjpD45lBFvKLmdEd3yy8C1 j456ZRCaHULgvS13Wq0juAxz GKEffSHKfC3ahnuwu3sczsqiJs UyJSGwAHf9IEc0GKRmeMgaDbBj JVQ4QxO4BGJ5iUXgpS8irQzc swxtsB8cExi+GWZeZMLeHNv0Ab wvdGQ+QLJxTPY3fYulUTmwQVQx zD3cKLRbI7y9BaSvZjJ9WOzi M3KbYJSbxtgcVq12tF6aCeWiIb S0HIkoH1NzycL2DYLlqNFrTLmt MEF8Y00yz5I7CTLoTTCtFAZ4 xNE9lV8viFkpvrzuwBIiaKhvqb EvoTynTNgwYVfwY534OSLxfBgt BzK0ITyfVGBiBH30HB29hPZe o0R4zCG7Y4KhPWMkhatcquedcW W6DFBlRSJbiD31iMRdMRljIl6f y6P2p704XWLqIHVfeV38Bf7h oCokOXGynPWGyH6ditqbh6rpcp eaJqNkCGVlQSv7OLe8VKOknEdj TwTdEBA3FmQ2TID1yPEcyL7r rGepnwhkoJ2mWdk+TUFMRTwvdG Q+RKVwWUZ6dFfhNPztGZFnoJ6h CERmL2q4MoMmLrS8TInwZ3Nd LLLshzfcGr46iR3bCcTlLjF9YT yvC0UhcuL1IHFnaZTcLHpqMDF3 E69rx3X3DALcNBNjEIV1eLW1 lB2qwWhdwlimlOXgqAaoscFirA obWAqoJVuhK344TMIneIfjUc9K AT95AY18Z9GrCkxbsDSwdWZ+ PHRhYmxlIHdpZHRoPScxMDAlJy KieIleDO5rXo6hFFIeVWNkbPgc rKVhNsMmw2hxCMNnRMzbVN6g eWwyY3TwdQO7MJTqm6z7Mg83D8 3qO5StdUC+CZHuvVC5wXC1gF3q IkRwZdX9YXztK568CgQdaZWm Yuawi2kov6tgcNl5BrUlKOXbem TlcMawRCF7e0OlAw19P41pVJwp DWXhMLHrAJOgJXOorMmgxe1x oF0sJn4+BREwoBW5vTI5iN4cMu QqEcP5RGfuH002SxCuaBOhTqfq L04dY5ZxyNP+TUFkUbs6UXAh bWlcEC4zoHOmXTtdIi7gXRP7Ud EjAsJuZPypS3IhNKDcyyjbudlz rLW1FSUjNRLkxP18Tt1cxTda Gf7nEZVpAAS4GVCrwZNqA2WvkZ 4hSjLaWMLwNHHxF1XqmMTyCKag F339AXitRkW4POHkegDlN4Yc XGSlxKnuIwI0p1M9Xz5NcIaqfV UgZZ9fWgCaPEo5I9CcPbt8HOVt bPebCG8qqFOoXZeaVq1gyAvv yYgsXV4oCADhnaesz722WmWmr3 hpJFUmlFQqKHihOKB6O63jd5W5 PAVcWTOoEAP5tPZ3wH3uuBhs bjogbGVmdDsgdmVydGljYWwtYW evF226TNWbmAlyCaXMOhc3Q9Ct Tbf7MHVtxSqsTC7nnJFdLMob Tt4jhAxfsOtmXZ0pYSOqbodeh9 20YvMie2rtETFzxUEtRTmjUGK5 H20tl0Q0YRRqQXHrDPS5jOI5 fA2enXrnohpyhQPcyZttniJleE iiTRhhCZuiF993QVMjcIxnYv8K Arj9K1WfRme5XNHnzTfxON9s nWDiLAvcBn6rsBzpoUeyKL1rUX Mazgtjh213SqVew3arVYWfhIFx KRklCCJ5C44zn6V6OFJfIBKi ESN6gAR7nH0wbJujuzptiWQiwB kxqpGfhFjiFDkoVKmxM825YDNg cDsnPlBheWVyOjwvdGQ+PC90 vz84D2ArSicpJsa1EVOjBER9tP H8rM4oYURlWAqwp5E8kMJ4I6Xt iqYdip3eb0roGFNdMRxxG92n bGF (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 Normal [facility] MR LUMBAR SPINE W WO [...] left hemilaminectomy. Mild spinal canal narrowing with zyez-qd-hxkyhyjo right and moderate left neuroforaminal narrowing. L4-L5: Left paracentral disc protrusion, mild facet arthropathy and laminectomy changes without significant spinal canal narrowing. Minimal narrowing of the left subarticular recess. Zrki-oi-ixbdfttk right and fkbujmyf-pv-urnhty left neuroforaminal narrowing. L5-S1: Laminectomy changes and facet arthropathy. No spinal canal narrowing. Qkjn-ed-otoaflqo right and moderate left neuroforaminal narrowing. IMPRESSION: [...] Jr Aguilar on 09/27/2023 9:56 AM Normal [facility] XR SPINE LUMB BENDING [...] Lopez MD on 09/24/2023 5:21 PM Normal [facility] Covid-19 PCR (CVDTB)on SARS-CoV-2 (COVID-19) RNA PRESTON+probe Ql (Unsp spec) Not detected Normal NOT DETECTED [facility] Comment on above: Result Comment: This test is not yet approved or cleared by the [place] FDA. When there are no FDA-approved or cleared tests available, and other criteria are met, FDA can make tests available under an emergency access mechanism called an Emergency Use Authorization (EUA). The EUA for this test is supported by the [place] of Health and Human Service's (HHS's) declaration [...] SARS-CoV-2. Performed By: #### C VDTB #### [facility] [address] [place] [address] Dr. Caitie Pierce Basic Metabolic Profon 01-08 (cont.) Normal [facility] Comment on above: Result Comment: Aver age GFR for 50-59 years old: 93 mL/min/1.73sq mChronic Kidney Disease: <60 mL/min/1.73sq mKidney failure: <15 mL/min/1.73sq meGFR calculated using average adult body mass. Additional eGFR calculator available at:http://www.Prescreen.AfterCollege/multiple_crcl_2012.htmPerformed at [facility] [address] [place] [address] Performed By: #### C DP, BMP ####[facility] [place] [address] Anion gap 12 mmol/L Normal 9-17 [facility] Comment on above: Performed By: #### C DP, BMP ####[facility] [place], [place] [id number] Calcium 9.4 mg/dL Normal 8.6-10.4 [facility] Comment on above: Performed By: #### C DP, BMP ####[facility] [place] [address] Chloride 102 mmol/L Normal 98-107 [facility] Comment on above: Performed By: #### C DP, BMP ####[facility] [place] [address] CO2 25 mmol/L Normal 20-31 [facility] Comment on above: Performed By: #### C DP, BMP ####[facility] [place] [address] Creatinine 0.80 mg/dL Normal 0.70-1.20 [facility] Comment on above: Performed By: #### C DP, BMP ####[address] [address] eGFR (non-black) mL/min/{1.73_m2} Normal >[address] [facility] Comment on above: Performed By: #### C DP, BMP ####[address] [address] Glucose mass conc 91 mg/dL Normal 70-99 [facility] Comment on above: Performed By: #### C DP, BMP ####[address] [address] Potassium molar conc 4.2 mmol/L Normal 3.7-5.3 [facility] Comment on above: Performed By: #### C DP, BMP ####[address] [address] Sodium 139 mmol/L Normal 135-144 [facility] Comment on above: Performed By: #### C DP, BMP ####[address] [address] Urea nitrogen 10 mg/dL Normal 6-20 [facility] Comment on above: Performed By: #### C DP, BMP ####[address] [address] BUN/CRE Ratio NOT REPORTED Normal 9-20 [facility] Comment on above: Performed By: #### C DP, BMP ####[address] [address] Staging: NOT REPORTED Normal [facility] Comment on above: Performed By: #### C DP, BMP ####[address] [address] CBC with Diffon 01-08-2018 Abs. Basophil 0.10 k/uL Normal 0.0-0.2 [facility] Comment on above: Result Comment: Perf ormed at [facility] [address] [place] [address] Performed By: #### C DP, BMP ####[address] [address] Abs.Neutrophil (Seg) 4.10 k/uL Normal 1.3-9.1 [facility] Comment on above: Performed By: #### C DP, BMP ####[address] [address] Basophils/100 WBC Auto (Bld) 1 % Normal 0-2 [facility] Comment on above: Performed By: #### C DP, BMP ####[address] [address] Eosinophils 0.20 10*3/uL Normal 0.0-0.4 [facility] Comment on above: Performed By: #### C DP, BMP ####[address] [address] Eosinophils/100 leukocytes 3 % Normal 0-4 [facility] Comment on above: Performed By: #### C DP, BMP ####[facility] [place] [address] Erythrocyte distribution width Auto Ratio (RBC) 13.7 % Normal 11.5-14.9 [facility] Comment on above: Performed By: #### C DP, BMP ####[facility] [place] [address] Erythrocytes (RBC) 4.98 10*6/uL Normal 4.5-5.9 [facility] Comment on above: Performed By: #### C DP, BMP ####[facility] [place] [address] Hematocrit (HCT) 44.7 % Normal 41-53 [facility] Comment on above: Performed By: #### C DP, BMP ####[facility] [place] [address] Hemoglobin mass conc (Bld) 15.2 g/dL Normal 13.5-17.5 [facility] Comment on above: Performed By: #### C DP, BMP ####[facility] [place] [address] Lymphocytes 1.10 10*3/uL Normal 1.0-4.8 [facility] Comment on above: Performed By: #### C DP, BMP ####[facility] [place] [address] Lymphocytes/100 leukocytes 18 % Low 24-44 [facility] Comment on above: Performed By: #### C DP, BMP ####[facility] [place] [address] MCH 30.6 pg Normal 26-34 [facility] Comment on above: Performed By: #### C DP, BMP ####[facility] [place] [address] MCHC mass conc (RBC) 34.1 g/dL Normal 31-37 [facility] Comment on above: Performed By: #### C DP, BMP ####[facility] [place] [address] MCV 89.7 fL Normal 80-100 [facility] Comment on above: Performed By: #### C DP, BMP ####[facility] [place] [address] Monocytes 0.50 10*3/uL Normal 0.1-1.3 [facility] Comment on above: Performed By: #### C DP, BMP ####[facility] [place] [address] Monocytes/100 leukocytes 8 % High 1-7 [facility] Comment on above: Performed By: #### C DP, BMP ####[address] [address] Neutrophil (Seg) 70 % High 36-66 [facility] Comment on above: Performed By: #### C DP, BMP ####[facility] [place] [address] Platelet mean volume (PMV) 8.2 fL Normal 6.0-12.0 [facility] Comment on above: Performed By: #### C DP, BMP ####[address] [address] Platelets 232 10*3/uL Normal 150-450 [facility] Comment on above: Performed By: #### C DP, BMP ####[facility] [place] [address] WBC (Leukocytes) 5.9 10*3/uL Normal 3.5-11.0 [facility] Comment on above: Performed By: #### C DP, BMP ####[facility] [place] [id number] Auto Diff Performed NOT REPORTED Normal [facility] Comment on above: Performed By: #### C DP, BMP ####[address] [address] Erythrocyte morphology NOT REPORTED Normal [facility] Comment on above: Performed By: #### C DP, BMP ####[address] [address] Erythrocytes (RBC) NOT REPORTED Normal [facility] Comment on above: Performed By: #### C DP, BMP ####[address] [address] Granulocytes/100 WBC (Bld) NOT REPORTED Normal 0.00-0.30 [facility] Comment on above: Performed By: #### C DP, BMP ####[address] [address] Immature granulocytes #/vol (Bld) NOT REPORTED Normal 0 [facility] Comment on above: Performed By: #### C DP, BMP ####[address] [address] Platelets NOT REPORTED Normal [facility] Comment on above: Performed By: #### C DP, BMP ####[address] [address] WBC Morphology NOT REPORTED Normal [facility] Comment on above: Performed By: #### C DP, BMP ####[address] [address] [address] SOFT TISSUE NECK W CONTRA STon [...] by:GERTRUDE Suggsigned by:Jass Hardy MD01/08/18inal result Normal [facility] Vital Signs Date Time Vital Sign Value Performing Clinician Facility 10-30-2024 10:56-0400 Body height 178.8 cm [facility] Work Phone: [facility] 10-30-2024 10:56-0400 Body mass index (BMI) [Ratio] 25.96 kg/m2 [facility] Work Phone: [facility] 10-30-2024 10:56-0400 Body temperature 98.6 [degF] [facility] Work Phone: [facility] 10-30-2024 10:56-0400 Body weight 83.01 kg [facility] Work Phone: [facility] 10-30-2024 10:56-0400 Diastolic blood pressure 79 mm[Hg] [facility] Work Phone: [facility] 10-30-2024 10:56-0400 Heart rate 64 /min [facility] Work Phone: [facility] 10-30-2024 10:56-0400 SaO2% (BldA) [Mass fraction] 99 % [facility] Work Phone: [facility] 10-30-2024 10:56-0400 Systolic blood pressure 127 mm[Hg] [facility] Work Phone: [facility] 10-01-2024 10:51-0500 Blood Pressure Location PURNIMA SARAH [facility] 10-01-2024 10:51-0500 Diastolic blood pressure 95 mm[Hg] PURNIMA TYREL [facility] 10-01-2024 10:51-0500 Heart rate 72 /min PURNIMA TYREL [facility] 10-01-2024 10:51-0500 Respiratory rate 18 /min PURNIMA TYREL [facility] 10-01-2024 10:51-0500 Systolic blood pressure 137 mm[Hg] PURNIMA TYREL [facility] 08-29-2024 15:08-0500 Blood Pressure Location Wilmer RUBIN [facility] [place] 08-29-2024 15:08-0500 Diastolic blood pressure 76 mm[Hg] Wilmer RUBIN [facility] [place] 08-29-2024 15:08-0500 Heart rate 76 /min Wilmer RUBIN [facility] [place] 08-29-2024 15:08-0500 Respiratory rate 16 /min Wilmer HORANL [facility] [place] 08-29-2024 15:08-0500 Systolic blood pressure 116 mm[Hg] Wilmer NILL [facility] [place] 07-06-2024 08:17-0500 Body mass index (BMI) [Ratio] 25.8 kg/m2 Alison Briceno MD Work Phone: [facility] 07-06-2024 08:17-0500 Body temperature 97.81 [degF] Alison Briceno MD Work Phone: [facility] 07-06-2024 08:17-0500 Body weight 86.3 kg Alison Briceno MD Work Phone: [facility] 07-06-2024 08:17-0500 Diastolic blood pressure 79 mm[Hg] Alison Briceno MD Work Phone: [facility] 07-06-2024 08:17-0500 Heart rate 73 /min Alison Briceno MD Work Phone: [facility] 07-06-2024 08:17-0500 Systolic blood pressure 125 mm[Hg] Alison Briceno MD Work Phone: [facility] 07-03-2024 09:24-0500 Diastolic blood pressure 88 mm[Hg] Devi House DO Work Phone: [facility] 07-03-2024 09:24-0500 Heart rate 85 /min Devi House DO Work Phone: [facility] 07-03-2024 09:24-0500 SaO2% (BldA) [Mass fraction] 98 % Devi House DO Work Phone: [facility] 07-03-2024 09:24-0500 Systolic blood pressure 150 mm[Hg] Devi House DO Work Phone: [facility] 06-11-2024 09:12-0400 Body weight 86.63 kg DO Devi House Work Phone: [facility] 06-11-2024 09:12-0400 Diastolic blood pressure 90 mm[Hg] DO Devi House Work Phone: [facility] 06-11-2024 09:12-0400 Heart rate 73 /min DO Devi House Work Phone: [facility] 06-11-2024 09:12-0400 SaO2% (BldA) [Mass fraction] 98 % DO Devi House Work Phone: [facility] 06-11-2024 09:12-0400 Systolic blood pressure 148 mm[Hg] DO Devi House Work Phone: [facility] 05-15-2024 10:05-0400 Body height 185.42 cm DO Devi House Work Phone: [facility] 05-15-2024 10:05-0400 Body weight 83.91 kg DO Devi Munoz Work Phone: [facility] 05-07-2024 10:53-0400 Heart rate 86 /min Wilmer NILL [facility] 05-07-2024 10:53-0400 SaO2% (BldA) [Mass fraction] 97 % Wilmer NILL [facility] 05-07-2024 10:52-0400 Respiratory rate 16 /min Wilmer NILL [facility] 05-07-2024 10:51-0400 Blood Pressure Location Wilmer NILL [facility] 05-07-2024 10:51-0400 Body temperature 97.7 [degF] Wilmer NILL [facility] 05-07-2024 10:51-0400 Diastolic blood pressure 90 mm[Hg] Wilmer NILL [facility] 05-07-2024 10:51-0400 Mean blood pressure 115 mm[Hg] Wilmer NILL [facility] 05-07-2024 10:51-0400 Systolic blood pressure 164 mm[Hg] Wilmer NILL [facility] 05-07-2024 10:00-0400 SaO2% (BldA) [Mass fraction] 98 % Wilmer NILL [facility] 05-07-2024 09:55-0400 Heart rate 80 /min Wilmer NILL [facility] 05-07-2024 09:55-0400 SaO2% (BldA) [Mass fraction] 80 % Wilmer NILL [facility] 05-07-2024 09:54-0400 Respiratory rate 16 /min Wilmer NILL [facility] 05-07-2024 09:53-0400 Body temperature 97.34 [degF] Wilmer NILL [facility] 05-07-2024 09:53-0400 Blood Pressure Location Wilmer NILL [facility] 05-07-2024 09:53-0400 Diastolic blood pressure 84 mm[Hg] Wilmer NILL [facility] 05-07-2024 09:53-0400 Mean blood pressure 110 mm[Hg] Wilmer NILL [facility] 05-07-2024 09:53-0400 Systolic blood pressure 162 mm[Hg] Wilmer NILL [facility] 05-07-2024 09:47-0400 Body temperature 97.7 [degF] Wilmer NILL [facility] 05-07-2024 09:47-0400 Diastolic blood pressure 85 mm[Hg] Wilmer NILL [facility] 05-07-2024 09:47-0400 Heart rate 92 /min Wilmer NILL [facility] 05-07-2024 09:47-0400 Mean blood pressure 103 mm[Hg] Wilmer NILL [facility] 05-07-2024 09:47-0400 Respiratory rate 14 /min Wilmer NILL [facility] 05-07-2024 09:47-0400 Systolic blood pressure 138 mm[Hg] Wilmer NILL [facility] 05-07-2024 09:40-0400 Mean blood pressure 104 mm[Hg] Wilmer NILL [facility] 05-07-2024 09:40-0400 Respiratory rate 12 /min Wilmer NILL [facility] 05-07-2024 09:35-0400 Mean blood pressure 98 mm[Hg] Wilmer NILL [facility] 05-07-2024 09:35-0400 Respiratory rate 12 /min Wilmer NILL [facility] 05-07-2024 09:22-0400 Body temperature 98.06 [degF] Wilmer NILL [facility] 05-07-2024 09:20-0400 Respiratory rate 1 /min Wilmer NILL [facility] 05-07-2024 06:14-0400 Blood Pressure Location Wilmer NILL [facility] 05-07-2024 06:14-0400 Mean blood pressure 113 mm[Hg] Wilmer NILL [facility] 05-07-2024 06:12-0400 Body temperature 97.7 [degF] Wilmer NILL [facility] 05-07-2024 06:12-0400 Heart rate 86 /min Wilmer NILL [facility] 05-03-2024 14:34-0400 Diastolic blood pressure 90 mm[Hg] Wilmer NILL [facility] 05-03-2024 14:34-0400 Heart rate 72 /min Wilmer NILL [facility] 05-03-2024 14:34-0400 Mean blood pressure 110 mm[Hg] Wilmer NILL [facility] 05-03-2024 14:34-0400 Systolic blood pressure 150 mm[Hg] Wilmer NILL [facility] 05-03-2024 14:33-0400 Heart rate 70 /min Wilmer NILL [facility] 05-03-2024 14:33-0400 SaO2% (BldA) [Mass fraction] 96 % Wilmer NILL [facility] 05-03-2024 14:33-0400 Diastolic blood pressure 86 mm[Hg] Wilmer NILL [facility] 05-03-2024 14:33-0400 Mean blood pressure 109 mm[Hg] Wilmer NILL [facility] 05-03-2024 14:33-0400 Systolic blood pressure 153 mm[Hg] Wilmer NILL [facility] 04-27-2024 10:25-0400 Blood Pressure Location Wilmer NILL [facility] [place] 04-27-2024 10:25-0400 Diastolic blood pressure 89 mm[Hg] Wilmer HORANL [facility] [place] 04-27-2024 10:25-0400 Heart rate 83 /min Wilmer NILL [facility] [place] 04-27-2024 10:25-0400 Respiratory rate 16 /min Wilmer NILL [facility] [place] 04-27-2024 10:25-0400 Systolic blood pressure 148 mm[Hg] Wilmer NILL [facility] 04-25-2024 13:00-0400 Body height 182.9 cm Violeta Black MD Work Phone: [facility] 04-25-2024 13:00-0400 Body mass index (BMI) [Ratio] 25.12 kg/m2 Violeta Black MD Work Phone: [facility] 04-25-2024 13:00-0400 Body weight 84 kg Violeta Black MD Work Phone: [facility] 04-25-2024 13:00-0400 Diastolic blood pressure 77 mm[Hg] Violeta Black MD Work Phone: [facility] 04-25-2024 13:00-0400 Heart rate 91 /min Violeta Black MD Work Phone: [facility] 04-25-2024 13:00-0400 Systolic blood pressure 143 mm[Hg] Violeta Black MD Work Phone: [facility] 04-11-2024 12:55-0400 Body height 182.9 cm Alison Briceno MD Work Phone: [facility] 04-11-2024 12:55-0400 Body mass index (BMI) [Ratio] 25.12 kg/m2 Alison Briceno MD Work Phone: [facility] 04-11-2024 12:55-0400 Body weight 84 kg Alison Briceno MD Work Phone: [facility] 04-11-2024 12:55-0400 Diastolic blood pressure 96 mm[Hg] Alison Briceno MD Work Phone: [facility] 04-11-2024 12:55-0400 Heart rate 81 /min Alison Briceno MD Work Phone: [facility] 04-11-2024 12:55-0400 Systolic blood pressure 161 mm[Hg] Alison Briceno MD Work Phone: [facility] 03-26-2024 10:27-0400 Body mass index (BMI) [Ratio] 25.23 kg/m2 Violeta Black MD Work Phone: [facility] 03-26-2024 10:27-0400 Body weight 84.37 kg Violeta Black MD Work Phone: [facility] Comment on above: per patient 03-16-2024 11:25-0400 Body height 182.88 cm [facility] 03-16-2024 11:25-0400 Body mass index (BMI) [Ratio] 26.2 kg/m2 [facility] 03-16-2024 11:25-0400 Body weight 87.54 kg [facility] 03-16-2024 11:25-0400 Diastolic blood pressure 81 mm[Hg] [facility] 03-16-2024 11:25-0400 Heart rate 104 /min [facility] 03-16-2024 11:25-0400 SaO2% (BldA) [Mass fraction] 97 % [facility] 03-16-2024 11:25-0400 Systolic blood pressure 136 mm[Hg] [facility] 03-01-2024 13:15-0400 Body height 182.9 cm Kian Mcdermott APRN.[employer] CARETAKER Work Phone: [facility] 03-01-2024 13:15-0400 Body mass index (BMI) [Ratio] 25.35 kg/m2 Kian Mcdermott APRN.[employer] CARETAKER Work Phone: [facility] 03-01-2024 13:15-0400 Body weight 84.8 kg Kian Pacenta CULINARY ARTS INSTRUCTOR.[employer] CARETAKER Work Phone: [facility] 03-01-2024 13:15-0400 Diastolic blood pressure 71 mm[Hg] Kian Pacenta CULINARY ARTS INSTRUCTOR.[employer] CARETAKER Work Phone: [facility] 03-01-2024 13:15-0400 Heart rate 89 /min Kian Pacenta CULINARY ARTS INSTRUCTOR.[employer] CARETAKER Work Phone: [facility] 03-01-2024 13:15-0400 Respiratory rate 18 /min Kian Pacenta CULINARY ARTS INSTRUCTOR.[employer] CARETAKER Work Phone: [facility] 03-01-2024 13:15-0400 Systolic blood pressure 132 mm[Hg] Kian Pacenta CULINARY ARTS INSTRUCTOR.[employer] CARETAKER Work Phone: [facility] 10-04-2023 12:41-0500 Body height 182.9 cm Daniel Childress MD Work Phone: [facility] 10-04-2023 12:41-0500 Body mass index (BMI) [Ratio] 27.12 kg/m2 Daniel Childress MD Work Phone: [facility] 10-04-2023 12:41-0500 Body weight 90.72 kg Daniel Childress MD Work Phone: [facility] 10-04-2023 12:41-0500 Diastolic blood pressure 92 mm[Hg] Daniel Childress MD Work Phone: [facility] 10-04-2023 12:41-0500 Heart rate 87 /min Daniel Childress MD Work Phone: [facility] 10-04-2023 12:41-0500 Systolic blood pressure 148 mm[Hg] Daniel Childress MD Work Phone: [facility] 09-06-2023 14:48-0500 Body height 182.9 cm 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 CULINARY ARTS INSTRUCTOR-[employer] CARETAKER Work Phone: [facility] 09-06-2023 14:48-0500 Body mass index (BMI) [Ratio] 27.8 kg/m2 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 CULINARY ARTS INSTRUCTOR-[employer]STOCK CARETAKER Work Phone: [facility] 09-06-2023 14:48-0500 Body weight 92.99 kg 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 CULINARY ARTS INSTRUCTOR-[employer] CARETAKER Work Phone: [facility] 09-06-2023 14:48-0500 Diastolic blood pressure 95 mm[Hg] 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 CULINARY ARTS INSTRUCTOR-[employer] CARETAKER Work Phone: [facility] 09-06-2023 14:48-0500 Heart rate 76 /min 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 CULINARY ARTS INSTRUCTOR-[employer]ST[employer] CARETAKER Work Phone: [facility] 09-06-2023 14:48-0500 Systolic blood pressure 140 mm[Hg] 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 CULINARY ARTS INSTRUCTOR-[employer]STOCK CARETAKER Work Phone: [facility] 02-23-2023 15:30-0400 Body height 185.42 cm Melissa Adama Other [facility] Other 02-23-2023 15:30-0400 Body mass index (BMI) [Ratio] 26.91 kg/m2 Melissa Adama Other [facility] Other 02-23-2023 15:30-0400 Body weight 92.53 kg Melissa Adama Other [facility] Other 02-23-2023 15:30-0400 Diastolic blood pressure 75 mm[Hg] Melissa Adama Other [facility] Other 02-23-2023 15:30-0400 SaO2% (BldA) [Mass fraction] 98 % Melissa Adama Other [facility] Other 02-23-2023 15:30-0400 Systolic blood pressure 130 mm[Hg] Melissa Adama Other [facility] Other 09-08-2022 15:00-0500 Body height 185.42 cm Carole Mikey Other [facility] Other 09-08-2022 15:00-0500 Body mass index (BMI) [Ratio] 27.37 kg/m2 Carole Jensen Other [facility] Other 09-08-2022 15:00-0500 Body temperature 97.3 [degF] Carole Jensen Other [facility] Other 09-08-2022 15:00-0500 Body weight 94.12 kg Carole Jensen Other [facility] Other 09-08-2022 15:00-0500 Diastolic blood pressure 80 mm[Hg] Carole Jensen Other [facility] Other 09-08-2022 15:00-0500 SaO2% (BldA) [Mass fraction] 97 % Carole Jensen Other [facility] Other 09-08-2022 15:00-0500 Systolic blood pressure 126 mm[Hg] Carole Jensen Other [facility] Other Encounters Encounter Date Encounter Type Care Provider Facility Start: 10-30-2024 End: 10-30-2024 Admission to establishment [facility] Work Phone: Pre Anesthesia Start: 10-30-2024 End: 10-30-2024 Anesthesia consultation [facility] Phone: Pre Anesthesia Comment on above: Preoperative examina tion (Primary Dx); GERD without esophagitis; Primary hypertension; BRADY (obstructive sleep apnea); Anxiety and depression; Former smoker Start: 10-30-2024 End: 10-30-2024 Preprocedural examination done [facility] Work Phone: [facility] Start: 10-26-2024 ambulatory HANY OLIVARES Facility: [facility] Start: 10-26-2024 End: 10-26-2024 Telephone encounter Wilmer Ashley MD Work Phone: [facility] Start: 10-18-2024 End: 10-18-2024 ambulatory Wilmer Ashley MD Work Phone: [facility] Start: 10-18-2024 End: 10-18-2024 Patient encounter status Wilmer Ashley MD Work Phone: [facility] Start: 10-18-2024 End: 10-18-2024 Telephone encounter Wilmer Ashley MD Work Phone: [facility] Start: 10-10-2024 End: 10-10-2024 Telephone encounter Wilmer Ashley MD Work Phone: [facility] Start: 10-03-2024 End: 10-03-2024 ambulatory TACO BRADSHAW Facility:[facility] Start: 10-01-2024 End: 10-01-2024 ambulatory PURNIMA SARAH Facility:[facility] Start: 10-01-2024 End: 10-01-2024 Patient encounter procedure PURNIMA SARAH [facility] Start: 09-24-2024 End: 09-24-2024 Telephone encounter Taco Bradshaw MD Work Phone: [facility] Comment on above: Pre-injection instru ctions Start: 09-20-2024 End: 09-20-2024 ambulatory Taco Bradshaw MD Work Phone: [facility] Comment on above: Pre-injection instru ctions Start: 09-20-2024 End: 09-20-2024 E-mail encounter from caregiver Taco Bradshaw MD Work Phone: [facility] Start: 09-06-2024 End: 09-06-2024 Orders Only Taco Bradshaw MD Work Phone: [facility] Comment on above: Lumbar radiculopathy (Primary Dx) Start: 08-30-2024 End: 08-30-2024 Admission to same day surgery center Wilmer Ashley MD Work Phone: [facility] Comment on above: Surgery Start: 08-30-2024 End: 08-30-2024 ambulatory Wilmer Ashley MD Work Phone: [facility] Start: 08-29-2024 End: 08-29-2024 ambulatory [facility] Facility:[facility] Start: 08-29-2024 End: 08-29-2024 Patient encounter procedure Wilmer RUBIN [facility] [place] Start: 08-28-2024 End: 08-30-2024 Telephone encounter Wilmer Ashley MD Work Phone: Neurology Start: 08-27-2024 ambulatory Hany Olivares Facility:[facility] Start: 08-24-2024 End: 08-24-2024 Admission to same day surgery center Wilmer Ashley MD Work Phone: [facility] Comment on above: Status post lumbar s pine surgery for decompression of spinal cord (Primary Dx) Start: 08-24-2024 End: 08-24-2024 ambulatory WILMER ASHLEY Facility:[facility] Start: 08-24-2024 End: 08-24-2024 Telemedicine consultation with patient Wilmer Ashley MD Work Phone: [facility] Start: 07-06-2024 End: 07-06-2024 ambulatory ALISON BRICENO Facility:[facility] Start: 07-06-2024 End: 07-06-2024 Patient encounter procedure Alison Briceno MD Work Phone: Spine Medicine Comment on above: Age related osteopor osis, unspecified pathological fracture presence (Primary Dx) Start: 07-03-2024 End: 07-03-2024 ambulatory Devi House DO Work Phone: [facility] Work Phone: Start: 07-03-2024 End: 07-03-2024 Patient encounter procedure Devi House DO Work Phone: [facility] Physician [facility] Work Phone: Start: 06-26-2024 End: 06-26-2024 ambulatory Devi House DO Work Phone: [facility] Work Phone: Start: 06-26-2024 End: 06-26-2024 Patient encounter procedure Devi House DO Work Phone: [facility] Physician [facility] Work Phone: Start: 06-26-2024 Non-patient / Non-visit Timoteo s House DO Work Phone: [facility] Work Phone: Start: 06-20-2024 Non-patient / Non-visit Timoteo s House DO Work Phone: [facility] Physician [facility] Work Phone: Start: 06-15-2024 End: 06-15-2024 Admission to same day surgery center Kian Johnsonlisasen [employer]AKER Work Phone: [facility] Comment on above: Other osteoporosis w ith current pathological fracture, initial encounter (Primary Dx); Lumbar radiculopathy; Status post lumbar spine surgery for decompression of spinal cord Start: 06-15-2024 End: 06-15-2024 ambulatory KIAN MCDERMOTT Facility:[facility] Start: 06-15-2024 End: 06-15-2024 Telemedicine consultation with patient Kian Mcdermott CULINARY ARTS INSTRUCTOR.[employer] CARETAKER Work Phone: [facility] Start: 06-12-2024 End: 06-12-2024 ambulatory Wilmer RUBIN Facility: [facility] Start: 06-12-2024 End: 06-12-2024 Patient encounter procedure Wilmer HORANWellington [facility] [place] Start: 06-11-2024 End: 06-11-2024 ambulatory DO Devi Munoz Work Phone: [facility] Work Phone: Start: 06-11-2024 End: 06-11-2024 Patient encounter procedure DO Devi Munoz Work Phone: [facility] Work Phone: Start: 06-06-2024 End: 06-06-2024 ambulatory [facility] Facility:[facility] Start: 06-06-2024 End: 06-06-2024 ambulatory [facility] Facility:[facility] Start: 06-01-2024 End: 06-01-2024 Telephone encounter No Pcp CULINARY ARTS INSTRUCTOR [facility] Start: 05-29-2024 End: 05-29-2024 ambulatory Wilmer RUBIN Facility:[facility] Start: 05-29-2024 End: 05-29-2024 Patient encounter procedure Wilmer RUBIN [facility] [place] Start: 05-17-2024 End: 05-17-2024 ambulatory UNKNOWN PROVIDER Facility:[facility] Start: 05-17-2024 End: 05-17-2024 Subsequent hospital visit by physician Ashley [facility] Radiology Comment on above: Back pain, unspecifi ed back location, unspecified back pain laterality, unspecified chronicity Start: 05-16-2024 End: 05-16-2024 ambulatory Wilmer RUBIN Facility: [facility] Start: 05-16-2024 End: 05-16-2024 Patient encounter procedure Wilmer Janiya HORANL [facility] [place] Start: 05-15-2024 End: 05-16-2024 Telephone encounter Alison Briceno MD Work Phone: Neurology Comment on above: Forms/letter Start: 05-15-2024 End: 05-15-2024 Patient encounter procedure DO Devi Munoz Work Phone: [facility] [place] Work Phone: Start: 05-15-2024 End: 05-15-2024 ambulatory DO Devi Munoz Work Phone: [facility] Work Phone: Start: 05-11-2024 End: 05-11-2024 Telephone encounter Alison Briceno MD Work Phone: [facility] Comment on above: Insurance Authorizat ion Start: 05-08-2024 ambulatory Wilmer R CARYN Facility : [place] Start: 05-07-2024 End: 05-07-2024 Admission to same day surgery center Wilmer HORANL [facility] Start: 05-07-2024 End: 05-08-2024 ambulatory Kian Pacenta CULINARY ARTS INSTRUCTOR.[employer] CARETAKER Work Phone: [facility] Comment on above: Spinal injection/ pa in relief Start: 05-03-2024 End: 05-04-2024 Admission to same day surgery center Kian Pacenta CULINARY ARTS INSTRUCTOR.[employer] CARETAKER Work Phone: [facility] Comment on above: Surgery Start: 05-03-2024 End: 05-04-2024 ambulatory Kian Pacenta CULINARY ARTS INSTRUCTOR.[employer] CARETAKER Work Phone: [facility] Start: 05-03-2024 End: 05-03-2024 Patient encounter procedure Wlimer R CARYN [facility] Start: 05-02-2024 End: 05-03-2024 Telephone encounter Alison Briceno MD Work Phone: Neurology Comment on above: Specialty Pharmacy Start: 05-02-2024 End: 05-02-2024 Telemedicine consultation with patient Alison Briceno MD Work Phone: [facility] Start: 05-02-2024 End: 05-02-2024 ambulatory Alison Briceno MD Work Phone: [facility] Comment on above: Other osteoporosis w ith current pathological fracture, initial encounter (Primary Dx) Start: 04-30-2024 End: 05-02-2024 Telephone encounter Alison Briceno MD Work Phone: Neurology Comment on above: results Start: 04-30-2024 ambulatory ALISON BRICENO Facility :[facility] Start: 04-30-2024 End: 04-30-2024 Subsequent hospital visit by physician Bone Density [facility] Radiology Comment on above: Compression fracture of body of thoracic vertebra (HCC) [S22.000A] Start: 04-27-2024 End: 04-27-2024 ambulatory Wilmer RUBIN Facility:[facility] Start: 04-27-2024 End: 04-27-2024 Patient encounter procedure Wilmer RUBIN [facility] [place] Start: 04-26-2024 End: 05-02-2024 Telephone encounter Alison Briceno MD Work Phone: Neurology Comment on above: F/U on Bone Density Results Start: 04-26-2024 End: 04-26-2024 ambulatory DEVI MUNOZ Facility:[facility] Start: 04-25-2024 End: 04-25-2024 ambulatory VIOLETA BLACK Facility:[facility] Start: 04-25-2024 End: 04-25-2024 Office outpatient visit 15 minutes Violeta Black MD Work Phone: [facility] Comment on above: Other osteoporosis w ith current pathological fracture, initial encounter (Primary Dx); Lumbar radiculopathy Start: 04-23-2024 End: 04-23-2024 ambulatory TACO BRADSHAW Facility:[facility] Start: 04-20-2024 ambulatory Wilmer NILWellington Facility:[facility] Start: 04-19-2024 End: 04-19-2024 Radha Hopson DO Work Phone: [facility] Start: 04-19-2024 End: 04-19-2024 Bamboo flowsheet Carole Hopson DO Work Phone: [facility] Start: 04-19-2024 End: 04-19-2024 ambulatory CAROLE HOPSON Not Available Start: 04-19-2024 End: 04-19-2024 Patient encounter procedure Carole Hopson DO Work Phone: [facility] Comment on above: Lumbosacral radiculo ely (Primary Dx) Start: 04-18-2024 End: 04-18-2024 ambulatory HANY M ELISE Facility:[facility] Start: 04-13-2024 End: 04-17-2024 ambulatory Kian Mcdermott APRN.[employer] CARETAKER Work Phone: [facility] Comment on above: Activity level/ phys ical limitations and restrictions Start: 04-11-2024 End: 04-11-2024 ambulatory ALISON BRICENO Facility:[facility] Start: 04-11-2024 End: 04-11-2024 Patient encounter procedure Alison Briceno MD Work Phone: [facility] Comment on above: Compression fracture of body of thoracic vertebra (HCC) (Primary Dx); Other fracture of unspecified thoracic vertebra, initial encounter for closed fracture (HCC); Compression fracture of C7 vertebra, sequela Start: 03-30-2024 End: 03-30-2024 ambulatory Ortiz Gutierres Facility:[facility] Start: 03-30-2024 ambulatory DEVI MUNOZ Facilit y:[facility] Start: 03-30-2024 End: 03-30-2024 ambulatory DEIV MUNOZ Facility:[facility] Start: 03-30-2024 End: 03-30-2024 ambulatory Jacinto Olmos MD Facility:[facility] Start: 03-28-2024 ambulatory Kian Mcdermott APRN.[employer]STOCK CARETAKER Work Phone: [facility] Comment on above: Recent visit with geovanni urosurmarissa Start: 03-27-2024 ambulatory Taco Foster Work Phone: [facility] Start: 03-26-2024 End: 03-26-2024 Office outpatient new 45 minutes Bilal Tato Butt MD Work Phone: [facility] Comment on above: Other osteoporosis w ith current pathological fracture, initial encounter (Primary Dx); Lumbar radiculopathy; Status post lumbar spine surgery for decompression of spinal cord Start: 03-26-2024 End: 03-26-2024 Subsequent hospital visit by physician General Radio [facility] Radiology Comment on above: S/P lumbar laminecto my [Z98.890] Start: 03-26-2024 End: 03-26-2024 ambulatory VIOLETA BLACK Facility:[facility] Start: 03-19-2024 End: 03-23-2024 Evaluation and management of inpatient HANY Mcfarlane ADASarthak Facility:[facility] Start: 03-16-2024 End: 03-16-2024 ambulatory Ortiz Gutierres [facility] Work Phone: Start: 03-16-2024 End: 03-16-2024 Patient encounter procedure [facility] Work Phone: Start: 03-16-2024 End: 03-16-2024 ambulatory DEVI MUNOZ Facility:[facility] Start: 03-16-2024 End: 03-16-2024 [facility]ulatory [facility] Start: 03-08-2024 Telephone encounter Kian Pace nta CULINARY ARTS INSTRUCTOR.[employer] CARETAKER Work Phone: Neurology Comment on above: Patient Question Start: 03-02-2024 End: 03-02-2024 ambulatory Kian Pacenta CULINARY ARTS INSTRUCTOR.[employer]OCK CARETAKER Work Phone: [facility] Start: 03-01-2024 End: 03-01-2024 Patient encounter procedure Kian Pacenta CULINARY ARTS INSTRUCTOR.[employer]OCK CARETAKER Work Phone: [facility] Comment on above: Lumbar radiculopathy (Primary Dx); Status post lumbar spine surgery for decompression of spinal cord Start: 03-01-2024 End: 03-02-2024 ambulatory [facility] Start: 02-24-2024 End: 02-24-2024 ambulatory Ortiz Gutierres Facility:[facility] Start: 02-24-2024 End: 02-24-2024 ambulatory Ortiz Debbi [place] CULINARY ARTS INSTRUCTOR-[employer]OCK CARETAKER Facility:[facility] Start: 02-08-2024 Chart abstracting Unk Pcp (Rolanda veras Start: 12-16-2023 End: 12-16-2023 ambulatory JACINTO OLMOS Facility:[facility] Start: 12-16-2023 End: 12-16-2023 ambulatory Jacinto Olmos MD Facility:[facility] Start: 12-01-2023 End: 12-01-2023 ambulatory Ortiz M London Facility:[facility] Start: 12-01-2023 End: 12-01-2023 ambulatory Ortiz Debbi London CULINARY ARTS INSTRUCTOR-[employer]STOCK CARETAKER Facility:[facility] Start: 11-25-2023 End: 11-25-2023 ambulatory Ortiz M London Facility:[facility] Start: 11-04-2023 End: 11-04-2023 ambulatory JACINTO Monet [facility] Facility:[facility] Start: 11-03-2023 End: 11-04-2023 ambulatory Jacinto Olmos MD Facility:[facility] Start: 10-31-2023 End: 10-31-2023 ambulatory GABRIELLE ROBERTGUADALUPE Not Available Start: 10-27-2023 End: 10-27-2023 ambulatory Ortiz Debbi London CULINARY ARTS INSTRUCTOR-LIVESTOCK CARETAKER Facility:[facility] Start: 10-21-2023 End: 10-21-2023 ambulatory Jacinto Olmos MD Facility:[facility] Start: 10-17-2023 End: 10-17-2023 ambulatory Ortiz Debbi London CULINARY ARTS INSTRUCTOR-LIVESTOCK CARETAKER Facility:[facility] Start: 10-04-2023 End: 10-04-2023 ambulatory DANIEL CHILDRESS [facility] Start: 10-04-2023 End: 10-04-2023 Postop follow up visit related to original px Daniel Childress MD Work Phone: [facility] Comment on above: Status post lumbar l aminectomy (Primary Dx); Weakness of left lower extremity Start: 09-23-2023 End: 09-24-2023 ambulatory WENDY PADRON [facility] Start: 09-23-2023 End: 09-23-2023 ambulatory WENDY PADRON [facility] Start: 09-06-2023 ambulatory NAKIA SIMEON [facility] Start: 09-06-2023 End: 09-06-2023 Postop follow up visit related to original px 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 CULINARY ARTS INSTRUCTOR-LIVESTOCK CARETAKER Work Phone: [facility] Comment on above: Status post lumbar l aminectomy (Primary Dx); Lumbar radiculopathy; Weakness of left lower extremity; Sensory deficit, left Start: 02-23-2023 End: 02-23-2023 Patient encounter procedure MD Nakia Simeon Work Phone: [facility] Work Phone: Start: 02-23-2023 End: 02-23-2023 ambulatory MD Nakia Simeon Work Phone: [facility] Work Phone: Start: 02-23-2023 Office outpatient vi sit 10 minutes Melissa Adama [facility] Start: 09-08-2022 Office outpatient ne w 30 minutes Carole Jensen [facility] Start: 09-08-2022 End: 09-08-2022 ambulatory MD Nakia Simeon Work Phone: [facility] Work Phone: Start: 09-08-2022 End: 09-08-2022 Patient encounter procedure MD Nakia Simeon Work Phone: [facility] Work Phone: Start: 08-19-2021 End: 08-19-[address] DOCTOR HAYES Facility:[facility] Start: 09-26-2020 Patient encounter status 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 CULINARY ARTS INSTRUCTOR-LIVESTOCK CARETAKER Work Phone: [facility] [employer] Work Phone: Start: 01-08-2018 End: 01-08-2018 Emergency department patient visit NAKIA SIMEON [facility] Procedures Date Procedure Procedure Detail Performing Clinician Start: 10-30-2024 Ecg routine ecg w/le ast 12 lds i&r only Misa L Jacki LEONARD Work Phone: Start: 05-17-2024 Radiology Comparison study - date and time Duc Holcomb MD Work Phone: Start: 05-15-2024 MRI of lumbar spine with contrast DO Nevro Work Phone: Start: 05-15-2024 XR pre/post mri xray DO Nevro Work Phone: Start: 05-07-2024 Inguinal hernia (disorder) Wilmer HORANWellington Start: 05-07-2024 Repair of right ingu inal hernia Wilmer CARYN Start: 04-30-2024 BD DXA TRABECULAR LYNDON NE SCORE (TBS) Alison Briceno MD Work Phone: Start: 04-30-2024 Dxa bone density farhat dy 1/> sites axial skel Alison Briceno MD Work Phone: Start: 04-19-2024 End: 04-19-2024 Needle emg ea extremty w/paraspinl area complete Carole Hopson DO Work Phone: Start: 09-06-2023 Follow-up visit Follow-up JAIR PADRON Start: 07-25-2023 Adult depression scr eening assessment 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 CULINARY ARTS INSTRUCTOR-[employer]IVESTOCK CARETAKER Work Phone: Start: 01-08-2018 Ct soft tissue neck w/contrast material NAKIA SIMEON Start: 01-08-2018 Basic metabolic pane l calcium total NAKIA SIMEON Start: 01-08-2018 Blood count complete auto&auto difrntl wbc NAKIA SIMEON Start: 01-08-2018 INSERT PERIPHERAL IV DA JOSE M SIMEON CT guided kyphoplast y of fracture of lumbar spine Wilmer RUBIN Excision of lamina o f lumbar vertebra for decompression of spinal cord Wilmer RUBIN Excision of lamina o f lumbar vertebra for decompression of spinal cord Wilmer RUBIN Extraction of cataract Mitchell burdick CARYN History of ankle surgery Dionicio neville CARYN Implantation of reti nal attachment Wilmer HORANWellington Plan of Treatment Date Care Activity Detail Author Start: 10-31-2027 Diabetes Screening Diabetes Screening [facility] Start: 07-06-2027 Diabetes Screening Diabetes Screening [facility] Start: 03-22-2027 Diabetes Screening Diabetes Screening [facility] Start: 08-26-2026 Screening for malignant neoplasm of colon [facility] Start: 07-18-2026 Diabetes Screening Diabetes Screening [facility] Start: 10-30-2025 BP Controlled (<130/80) BP Controlled (<130/80) [facility] Start: 07-06-2025 BP Controlled (<130/80) BP Controlled (<130/80) [facility] Start: 01-09-2025 End: 01-09-2025 Patient encounter procedure 01/09/2025 12:00 PM EDT Office Visit [facility] [address] [place], [place] [phone] Alison Briceno MD [address] [place] [address] follow up [facility] Comment on above: follow up Start: 01-03-2025 End: 01-03-2025 Patient encounter procedure 01/03/2025 10:00 AM EDT [facility] [address] [place], [place] [phone] Elisa Cardoza PA-C [address] [place], [place] [id number] - 6-8 week post op appointment: VV [facility] Comment on above: - 6-8 week post op appointment: VV Start: 11-30-2024 End: 11-30-2024 ambulatory 11/30/2024 3:00 PM EDT [facility] [address] [place] [id number] Elisa Cardoza PA-C [address] [place] [address] - 2 week post-op: VV [facility] Comment on above: - 2 week post-op: VV Start: 11-28-2024 End: 11-28-2024 ambulatory 11/28/2024 1:00 PM EDT [facility] [address] [place] [address] Kellie Hahn PSYD [address] [place] [phone] [facility] Comment on above: trek Start: 11-15-2024 End: 11-15-2024 Admission to same day surgery center 11/15/2024 7:30 AM EDT - 11/15/2024 2:00 PM EDT Surgery Admitting [address] [place] [address] Wilmer Ashley MD [address] [facility] [address] [place] [phone] TLIF DECOMPRESSION LAMINECTOMY INTERBODY FUSION LUMBAR POSTERIOR (PLIF) LEVEL 1 Admitting Comment on above: TLIF DECOMPRESSION LAMINECTOMY INTERBODY FUSION LUMBAR POSTERIOR (PLIF) LEVEL 1 Start: 11-15-2024 End: 11-15-2024 Arthrodesis posterior interbody ea addl [facility] Start: 11-15-2024 End: 11-15-2024 Arthrodesis posterior interbody lumbar TLIF DECOMPRESSION LAMINECTOMY INTERBODY FUSION LUMBAR POSTERIOR (PLIF) LEVEL 1 Lumbar radiculopathy Pre-op testing 11/15/2024 7:30 AM EDT [facility] Start: 11-15-2024 End: 11-15-2024 Autograft spine surgery local from same incision AUTOGRAFT FOR SPINE SURGERY ONLY, OBTAINED FROM SAME INCISION Lumbar radiculopathy Pre-op testing 11/15/2024 7:30 AM EDT [facility] Start: 11-15-2024 End: 11-15-2024 Insj biomchn dev intervertebral dsc spc w/arthrd INSERTION INTERBODY BIOMED DEVICE(S) W/ANT INSTR ANCHORING TO DISC SPACE W/INTERBODY FUSION,EA INTERSPACE Lumbar radiculopathy Pre-op testing 11/15/2024 7:30 AM EDT [facility] Start: 11-15-2024 End: 11-15-2024 Manjarrez facetectomy & foramotomy 1 segment lumbar LAMINECTOMY DECOMPRESSION FACETECTOMY AND FORAMINOTOMY Lumbar radiculopathy Pre-op testing 11/15/2024 7:30 AM EDT [facility] Start: 11-15-2024 End: 11-15-2024 Manjarrez facetectomy&foramtomy 1 sgm ea crv thrc/lmbr [facility] Start: 11-15-2024 End: 11-15-2024 Posterior segmental instrumentation 3-6 vrt seg POSTERIOR SEGMENTAL INSTRUMENTATION FOLLOWING LUMBAR FUSION 3-6 LEVELS Lumbar radiculopathy Pre-op testing 11/15/2024 7:30 AM EDT [facility] Start: 11-15-2024 Subsequent hospital visit by physician 11/15/2024 7:30 AM EDT Hospital Encounter Admitting [address] [place] [address] Wilmer Ashley MD [address] [facility] [address] [place] [address] Lumbar radiculopathy [M54.16], Pre-op testing [Z01.818] Admitting Comment on above: Lumbar radiculopathy [M54.16], Pre-op te sting [Z01.818] Start: 11-08-2024 End: 11-08-2024 Nursing evaluation of patient and report 11/08/2024 10:00 AM EDT Nurse Visit [facility] [address] [place] [address] Claritza Luna, KRISTIN - Pre-op education: Phone [facility] Comment on above: - Pre-op education: Phone Start: 10-31-2024 End: 10-31-2024 Patient encounter procedure 10/31/2024 9:20 AM EDT Office Visit [facility] [address] [place] [phone] Gabrielle Lee APRN-LIVESTOCK CARETAKER [address] [place] [address] MERVIN CORDOVA Start: 10-30-2024 End: 01-29-2025 CONFIRM BLOOD TYPE [facility] Work Phone: Comment on above: Expected: 10/30/2024, Expires: Start: 10-30-2024 End: 10-30-2024 ambulatory 10/30/2024 12:00 PM EDT Results Only [facility] [address] [place] [address] pre op labs [facility] Comment on above: pre op labs Start: 10-30-2024 End: 10-30-2024 Anesthesia consultation 10/30/2024 10:50 AM EDT PAT [facility] [address] [place] [address] [place], [place] [address] [place] [address] pre op [facility] Comment on above: pre op Start: 10-18-2024 End: 10-18-2025 CBC W Auto Differential panel - Blood COMPLETE BLOOD COUNT AND DIFFERENTIAL Lab Routine Lumbar radiculopathy Pre-op testing Anemia, unspecified type Expected: 10/18/2024 (Approximate), Expires: 10/18/2025 [facility] Comment on above: Expected: 10/18/2024 (Approximate), Expi res: 10/18/2025 Start: 10-18-2024 End: 10-18-2025 Ferritin [Mass/volume] in Serum or Plasma FERRITIN Lab Routine Lumbar radiculopathy Pre-op testing Anemia, unspecified type Expected: 10/18/2024, Expires: 10/18/2025 [facility] Comment on above: Expected: 10/18/2024, Expires: Start: 10-18-2024 End: 10-18-2025 Iron and Iron binding capacity panel - Serum or Plasma IRON AND TIBC Lab Routine Lumbar radiculopathy Pre-op testing Anemia, unspecified type Expected: 10/18/2024 (Approximate), Expires: 10/18/2025 [facility] Comment on above: Expected: 10/18/2024 (Approximate), Expi res: 10/18/2025 Start: 10-18-2024 End: 10-18-2025 NICOTINE/COTININE NICOTINE/COTININE Lab Routine Lumbar spondylosis Expected: 10/18/2024 (Approximate), Expires: 10/18/2025 [facility] Comment on above: Expected: 10/18/2024 (Approximate), Expi res: 10/18/2025 Start: 10-18-2024 End: 04-16-2025 STAPHYLOCOCCUS AUREUS & MRSA SCREEN, PCR, NASAL STAPHYLOCOCCUS AUREUS & MRSA SCREEN, PCR, NASAL Lab Routine Lumbar radiculopathy Pre-op testing 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) Expected: 10/18/2024 (Approximate), Expires: 04/16/2025 [facility] Work Phone: Comment on above: Expected: 10/18/2024 (Approximate), Expi res: 04/16/2025 Start: 10-18-2024 End: 01-17-2025 TYPE AND SCREEN,30 DAY TYPE AND SCREEN,30 DAY Blood Bank Routine Lumbar radiculopathy Pre-op testing Anemia, unspecified type Expected: 10/18/2024 (Approximate), Expires: 01/17/2025 [facility] Comment on above: Expected: 10/18/2024 (Approximate), Expi res: 01/17/2025 Start: 10-06-2024 Tobacco Screening Tobacco Screening [facility] Start: 10-04-2024 Adult BMI Screening Adult BMI Screening [facility] Start: 10-03-2024 End: 10-03-2024 Admission to same day surgery [facility] Comment on above: INJECTION(S) STEROID TRANSFORAMINAL EPID URAL LUMBAR W/IMAGE GUIDANCE FLUORO OR CT Start: 10-03-2024 End: 10-03-2024 Njx anes&/strd w/img tfrml edrl lmbr/sac 1 lvl [facility] Start: 10-03-2024 Subsequent hospital visit by [facility] Comment on above: Lumbar radiculopathy [M54.16] Start: 09-19-2024 End: 09-19-2024 ambulatory 09/19/2024 10:00 AM [facility] [address] [place] [address] Wilmer Ashley MD [address] [phone] got an MRI saw more findings [facility] Comment on above: got an MRI saw more findings Start: 09-06-2024 Adult BMI Screening Adult BMI Screening [facility] Start: 09-06-2024 Tobacco Screening Tobacco Screening [facility] Start: 08-10-2024 End: 08-10-2024 ambulatory 08/10/2024 11:00 AM EST [facility] [address] [place] [phone] Wilmer Ashley MD [address] [place] [phone] got an MRI saw more findings [facility] Comment on above: got an MRI saw more findings Start: 07-25-2024 Depression Screening Depression Screening [facility] Start: 07-06-2024 End: 07-06-2024 Patient encounter procedure 07/06/2024 8:00 AM EST Office Visit [facility] [address] [place] [address] Alison Briceno MD [address] [place] [phone] follow up [facility] Comment on above: follow up Start: 06-15-2024 End: 06-15-2024 ambulatory 06/15/2024 10:30 AM EDT [facility] [address] [place] [address] Kian Mcdermott APRN.LIVESTOCK CARETAKER [address] [employer] Mail [address] [place] [address] per staff message, Lalit Mcdermott 05/04 [facility] Comment on above: per staff message, Lalit Mcdermott 05/04 Start: 05-29-2024 End: 05-29-2024 Patient encounter procedure 05/29/2024 11:30 AM EDT Office Visit [facility] [address] [place] [address] Duc Holcomb MD [address] [place] [address] [facility] Start: 05-02-2024 End: 05-02-2024 ambulatory 05/02/2024 1:00 PM EDT [facility] [address] [place], [place] [phone] Alison Briceno MD [address] [place] [address] 3-4 week f/u [facility] Comment on above: 3-4 week f/u Start: 04-30-2024 End: 04-30-2024 Patient encounter procedure 04/30/2024 11:00 AM EDT Appointment Radiology [address] [place], [place] [phone] Compression fracture of body of thoracic vertebra (HCC) [S22.000A] Radiology Comment on above: Compression fracture of body of thoracic vertebra (HCC) [S22.000A] Start: 04-25-2024 End: 04-25-2024 Patient encounter procedure 04/25/2024 1:40 PM EDT Office Visit [facility] [place] [phone] Violeta Black MD [address] [place] [address] f/u [facility] Comment on above: f/u Start: 04-23-2024 End: 04-23-2024 Admission to same day surgery [facility] Comment on above: INJECTION(S) STEROID TRANSFORAMINAL EPID URAL W/ IMAGING GUIDANCE LUMBAR INJECTION(S) STEROID TRANSFORAMINAL EPIDURAL LUMBAR W/IMAGE GUIDANCE FLUORO OR CT Start: 04-23-2024 End: 04-23-2024 Njx anes&/strd w/img tfrml edrl lmbr/sac 1 lvl [facility] Start: 04-23-2024 Subsequent hospital visit by [facility] Comment on above: Other osteoporosis with current patholog ical fracture, initial encounter [M80.80XA] Start: 04-15-2024 COVID-19 Vaccine ( season) COVID-19 Vaccine () [facility] Start: 04-15-2024 Covid-19 Vaccine () Covid-19 Vaccine () [facility] Start: 04-15-2024 Covid-19 Vaccine () Covid-19 Vaccine () [facility] Start: 04-15-2024 Influenza vaccination Influenza Vaccine (#1) [facility] Start: 03-17-2024 DTaP,Tdap and Td Vaccines (2 - Td or Tdap) DTaP,Tdap and Td Vaccines (2 - Td or Tdap) [facility] Start: 09-23-2023 End: 09-23-2023 Patient encounter procedure 09/23/2023 9:00 PM EST Appointment [facility] [address] [place] [phone] [facility] Start: 09-06-2023 End: 09-06-2024 XR Lumbar spine Views AP W right bending and W left bending X-ray spine lumbar flexion and extension only 2 to 3 views Imaging Routine Status post lumbar laminectomy Lumbar radiculopathy Expected: 09/06/2023, Expires: 09/06/2024 [facility] Comment on above: Expected: 09/06/2023, Expires: Start: 08-15-2023 Behavioral Health Screening Behavioral Health Screening [facility] Start: 04-15-2023 Covid-19 Vaccine () Covid-19 Vaccine () [facility] Start: 04-15-2023 Influenza vaccination Influenza Vaccine [facility] Start: 2021 Prostate specific antigen measurement Prostate Cancer Screening Discussion [facility] Start: 2016 Administration of varicella zoster vaccine Zoster (Shingles) Vaccine ( 2) [facility] Start: 2016 Pneumococcal Vaccine: 50+ (1 of 1 - PCV) Pneumococcal Vaccine: 50+ (1 of 1 - PCV) [facility] Start: 2016 Shingles (RZV) Vaccine (1 of 2) Shingles (RZV) Vaccine (1 of 2) [facility] Start: 2016 Shingrix Vaccine (1 of 2) Shingrix Vaccine (1 of 2) [facility] Start: 03-18-2014 Urine microalbumin profile DTaP,Tdap,Td Vaccine (1 - Tdap) [facility] Start: 12-14-2011 Screening for malignant neoplasm of colon [facility] Start: 2001 Lipid panel [facility] Start: 1985 Hepatitis A (HAV) Vaccine (optional start 19+ years) Hepatitis A (HAV) Vaccine (optional start 19+ years) [facility] Start: 1985 Hepatitis B vaccination Hepatitis B (HBV) Vaccine (1 of 3 - 19+ 3-dose series) [facility] Start: 1985 Hepatitis B Vaccine (1 of 3 - 19+ 3-dose series) Hepatitis B Vaccine (1 of 3 - 19+ 3-dose series) [facility] Start: 1984 Adult BMI Follow Up Plan Adult BMI Follow Up Plan [facility] Start: 1984 Annual PCP Team Chronic Disease Visit Annual PCP Team Chronic Disease Visit [facility] Start: 1984 Anxiety Screening Anxiety Screening [facility] Start: 1984 BP Controlled (<130/80) BP Controlled (<130/80) [facility] Start: 1984 Depression Screening Depression Screening [facility] Start: 1984 Hepatitis C screening [facility] Start: 1984 HIV screening HIV Screening [facility] Start: 1984 Tdap Booster Tdap Booster [facility] Start: 1981 HIV screening HIV Test [facility] Start: 1966 Screening for malignant neoplasm of colon [facility] End: 05-11-2025 BD DXA TRABECULAR BONE SCORE (TBS) BD DXA TRABECULAR BONE SCORE (TBS) Radiology Routine Compression fracture of body of thoracic vertebra (HCC) 1 Occurrences starting 04/11/2024 until 05/11/2025 [facility] Comment on above: 1 Occurrences starting 04/11/2024 until 05/11/2025 CALCIUM, 24 HR URINE CALCIUM, 24 HR URINE Lab Routine Compression fracture of body of thoracic vertebra (HCC) Ordered: 04/11/2024 [facility] Comment on above: Ordered: 04/11/2024 End: 05-11-2025 DXA Skeletal system.axial Views for bone density DXA-AXIAL SKELETON Radiology Routine Compression fracture of body of thoracic vertebra (HCC) 1 Occurrences starting 04/11/2024 until 05/11/2025 [facility] Work Phone: Comment on above: 1 Occurrences starting 04/11/2024 until 05/11/2025 End: 10-04-2024 EMG EMG Neurology Routine Status post lumbar laminectomy Weakness of left lower extremity 1 Occurrences starting 10/04/2023 until 10/04/2024 [facility] Work Phone: Comment on above: 1 Occurrences starting 10/04/2023 until 10/04/2024 End: 05-11-2025 MR Cervical spine WO contrast MRI CERVICAL SPINE WO IVCON Radiology Routine Compression fracture of C7 vertebra, sequela 1 Occurrences starting 04/11/2024 until 05/11/2025 [facility] Comment on above: 1 Occurrences starting 04/11/2024 until 05/11/2025 End: 09-05-2024 MR Lumbar spine WO and W contrast IV MR lumbar spine with and without contrast Imaging Routine Status post lumbar laminectomy Lumbar radiculopathy 1 Occurrences starting 09/06/2023 until 09/05/2024 [facility] Work Phone: Comment on above: 1 Occurrences starting 09/06/2023 until 09/05/2024 End: 05-11-2025 MR Thoracic spine WO contrast MRI THORACIC SPINE WO IVCON Radiology Routine Other fracture of unspecified thoracic vertebra, initial encounter for closed fracture (HCC) 1 Occurrences starting 04/11/2024 until 05/11/2025 [facility] Comment on above: 1 Occurrences starting 04/11/2024 until 05/11/2025 Njx anes&/strd w/img tfrml edrl lmbr/sac 1 lvl INJECTION(S) STEROID TRANSFORAMINAL EPIDURAL LUMBAR W/IMAGE GUIDANCE FLUORO OR CT Lumbar radiculopathy [facility] SPINE INTERVENTION PROCEDURE [facility] Work Phone: Comment on above: Ordered: 03/26/2024 End: 04-08-2025 XR Lumbar spine Views W flexion and W extension XR LUMBAR MOTION 4V AP/LAT/ FLEX/EXT Radiology Routine S/P lumbar laminectomy Degeneration of lumbar or lumbosacral intervertebral disc 1 Occurrences starting 03/09/2024 until 04/08/2025 [facility] Work Phone: Comment on above: 1 Occurrences starting 03/09/2024 until 04/08/2025 XR Lumbar spine View s W flexion and W extension XR LUMBAR MOTION 4V AP/LAT/ FLEX/EXT Radiology Routine S/P lumbar laminectomy Degeneration of lumbar or lumbosacral intervertebral disc 03/26/2024 10:35 AM EDT [facility] End: 04-08-2025 XR Thoracic and lumbar spine Views for scoliosis W standing XR SCOLIOSIS PA STAND/LAT 2V Radiology Routine S/P lumbar laminectomy Degeneration of lumbar or lumbosacral intervertebral disc 1 Occurrences starting 03/09/2024 until 04/08/2025 [facility] Comment on above: 1 Occurrences starting 03/09/2024 until 04/08/2025 XR Thoracic and lumb ar spine Views for scoliosis W standing XR SCOLIOSIS PA STAND/LAT 2V Radiology Routine S/P lumbar laminectomy Degeneration of lumbar or lumbosacral intervertebral disc 03/26/2024 10:35 AM EDT [facility] Immunizations Immunization Date Immunization Notes Care Provider [facility] 08-10-2021 SARS-CoV-2 (COVID-19 ) mRNA-1273 vaccine Wilmer RUBIN [facility] [place] 06-02-2021 influenza, injectabl e, quadrivalent, preservative free Carole Hopson DO Work Phone: [facility] 06-02-2021 influenza virus vaccine, unspecified formulation Kian Mcdermott APRN.CNP Work Phone: [facility] 11-20-2020 SARS-CoV-2 (COVID-19 ) mRNA-1273 vaccine Wilmer RUBIN [facility] 10-23-2020 SARS-CoV-2 (COVID-19 ) [id number] vaccine Wilmer RUBIN [facility] 03-17-2014 tetanus and diphther ia toxoids, adsorbed, preservative free, for adult use (2 Lf of tetanus toxoid and 2 Lf of diphtheria toxoid) PURNIMA SARAH [facility] 03-17-2014 tetanus and diphther ia toxoids, adsorbed, preservative free, for adult use (5 Lf of tetanus toxoid and 2 Lf of diphtheria toxoid) Carole Hopson DO Work Phone: [facility] Payers Date Payer Category Payer Private Health Insurance [id number] 2024 Self-pay [id number] 2015 Private Health Insurance [id number] 2015 Private Health Insurance [id number] 1966 Unknown [id number] 2.16.84 0.1.075059.3.579.2.593 1966 Unknown [id number] 2.16.8 40.1.686094.3.579.2.1286 1966 Unknown [id number] 2.16.8 40.1.525680.3.579.2.1286 1966 Unknown [id number] 2.16.8 40.1.244172.3.579.2.1286 1966 Unknown [id number] 2.16.8 40.1.345558.3.579.2.1286 1966 Unknown [id number] 2.16. 840.1.967862.3.579.2. 1966 Unknown [id number] 2.16. 840.1.526980.3.579.2. 1966 Unknown [id number] 2.16. 840.1.028699.3.579.2. 1966 Unknown [id number] 2.16. 840.1.884968.3.579.2. 1966 Unknown [id number] 2.16. 840.1.507937.3.579.2. 1966 Unknown [id number] 2.16. 840.1.182823.3.579.2. 1966 Unknown [id number] 2.16. 840.1.781457.3.579.2. 1966 Unknown [id number] 2.16. 840.1.323289.3.579.2. 1966 Unknown [id number] 2.16. 840.1.558340.3.579.2. 1966 Unknown [id number] 2.16. 840.1.284264.3.579.2. 1966 Unknown [id number] 2.16.84 0.1.264175.3.579.2.1258 1966 Unknown [id number] 2.16.84 0.1.191183.3.579.2.1258 1966 Unknown [id number] 2.16.8 40.1.861176.3.579.2. 1966 Unknown [id number] 2.16.8 40.1.023361.3.579.2. 1966 Unknown [id number] 2.16.8 40.1.932720.3.579.2. 1966 Unknown [id number] 2.16.8 40.1.459331.3.579.2. 1966 Unknown [id number] 2.16.8 40.1.433385.3.579.2. 1966 Unknown [id number] 2.16.8 40.1.675946.3.579.2. 1965 Unknown [id number] 2.16. 840.1.438438.3.579.2. 1966 Unknown [id number] 2.16.8 40.1.816159.3.579.2. 1966 Unknown [id number] 2.16.8 40.1.773449.3.579.2. 1966 Unknown [id number] 2.16.8 40.1.109355.3.579.2 1966 Unknown [id number] 2.16.8 40.1.281784.3.579.2 1966 Unknown [id number] 2.16.8 40.1.705094.3.579.2 1966 Unknown [id number] 2.16.8 40.1.481354.3.579.2 1966 Unknown [id number] 2.16.8 40.1.848431.3.579.2 1966 Unknown [id number] 2.16.8 40.1.480933.3.579.2 1966 Unknown [id number] 2.16.8 40.1.282726.3.579.2 1966 Unknown [id number] 2.16.8 40.1.128403.3.579.2 1966 Unknown [id number] 2.16.8 40.1.708018.3.579.2 1966 Unknown [id number] 2.16.8 40.1.259372.3.579.2 1966 Unknown [id number] 2.16.8 40.1.107840.3.579.2 1966 Unknown [id number] 2.16.8 40.1.279575.3.579.2.718 1966 Unknown [id number] 2.16.8 40.1.774395.3.579.2.718 1966 Unknown [id number] 2.16.8 40.1.807522.3.579.2.8 1966 Unknown [id number] 2.16.8 40.1.315452.3.579.2.718 1959 Private Health Insurance [id number] Unknown [id number] 2.16.8 40.1.087442.3.579.2.531 Social History Date Type Detail Facility Tobacco smoking stat [facility] Unknown if ever smoked [facility] Work Phone: Start: 1965 Sex Assigned At Male F [facility] Start: 03-01-2024 End: 03-20-2024 Sex Assigned At [facility] Tobacco smoking stat [facility] Tobacco smoking consumption unknown [facility] Start: 1965 Sex Assigned At Not on file C [facility] Start: 03-01-2024 End: 10-01-2024 Tobacco smoking status NHIS Ex-smoker [facility] Start: 08-15-1978 End: 08-15-1997 History of tobacco use Current smoker [facility] Start: 08-15-1978 End: 08-15-1997 History of tobacco use Cigarette Smoker [facility] Start: 09-26-2020 End: 03-01-2024 Tobacco use and exposure Former smokeless tobacco user [facility] History of tobacco use Snuff User [facility] Start: 03-01-2024 End: 10-30-2024 Alcohol intake Ex-drinker (finding) [facility] Start: 03-01-2024 End: 03-20-2024 History of Social function [facility] National Score (1-10 0), lower number is lower risk 40 [facility] Start: 06-26-2024 End: 07-03-2024 Sex Male (finding) [facility] Start: 01-26-2023 Tobacco use and exposure Smokeless tobacco non-user [facility] Start: 10-31-2023 Alcoholic beverage intake Lifetime non-drinker (finding) [facility] End: 08-15-2016 History of tobacco use User of smokeless tobacco [facility] How often to you hav e a drink containing alcohol? Never [facility] Start: 09-26-2020 Alcohol Comment states alcohol ic quit 1990 [facility] Medical Equipment Procedure Code Equipment Code Equipment Origin al Text Equipment Identifier Dates INGUINAL HERNIA REPAIR ADULT Wilmer RUBIN MD 05/07/24 Unknown Other [id number] FDA Start: 05-07-2024 Patch Dura 1x1in Drmtrx-[place] + Clgn Rgnrt Membr Str[facility] [id number] - [id number] Start: 07-25-2023 Functional Status Date Assessment Result Facility 10-01-2024 Functional Status N/A [facility] 08-29-2024 Functional Status N/A [facility] [place] 06-12-2024 Functional Status N/A [facility] 05-03-2024 Functional Status No [facility] 04-27-2024 Functional Status N/A [facility] [place] Clinical Notes 09-08-2022 to 10-30-2024 Patient InstructionsMisa Echeverria PA-C - 10/30/2024 10:50 AM EDTMisa Echeverria PA-C - 10/30/2024 10:50 AM EDTTelephone Encounter - Claritza Luna RN - 10/26/2024 12:38 PM EDTPatient Instructions Note Date & Type Note Facility 10-30-2024 Instructions Misa Echeverria PA-C - 10/30/2024 10:58 AM EDT Images from the original note were not included. [facility] PATIENT PREOPERATIVE INSTRUCTIONS [facility] Scheduling Office: [phone] --[address] [place] [address]. Please read below carefully for your personalized instructions. Arrival Time for Surgery: - To obtain your arrival time for surgery, call your physician's office the day before your surgery. - If you have received different instructions about finding out your arrival time from your surgeon, please follow those instructions. - If your surgery is scheduled for Tuesday, call the Tuesday before. Your surgeon s crew scheduler will tell you what time to call the office. - If you have not reached the departmental crew scheduler by 5 P.M., call [phone] after 5 P.M. the day before your surgery. Please be aware that emergency situations arise, which may delay or change your surgical time. If this happens, we will notify you as soon as possible and regret any inconvenience. Dietary Restrictions: - No solid food after midnight. - You may have 12 ounces of clear liquids (water, clear juices such as apple juice or gatorade, carbonated beverages, clear tea, black coffee, jello) until 2 hours before scheduled arrival at facility. - no milk/creamer or other additives like honey - no pulp juices Medications: Pre-Surgery Med Instructions Medication Instructions mupirocin (BACTROBAN) 2 % ointment Use as instructed lisinopril (ZESTRIL) 20 mg tablet Continue omeprazole (PRILOSEC) 40 mg capsule Continue buPROPion SR (WELLBUTRIN SR) 150 mg 12 hr tablet Continue diclofenac, EC, (VOLTAREN) 75 mg EC tablet Stop 7 days before surgery FLUoxetine (PROZAC) 20 mg capsule Continue sildenafil (REVATIO) 20 mg tablet Stop 3 days before surgery If you are currently using a [id number]-swpo injectable or oral medication for diabetes or weight loss such as Dulaglutide (Trulicity), Exenatide (Byetta, Bydureon), Liraglutide (Victoza, Saxenda), Semaglutide (Ozempic, Wegovy, Rybelsus), or Tirzepatide (Mounjaro), the medicine should be stopped at least 7 days before surgery. These medicines can cause food to remain in your stomach for a very long time and increase the risks from surgery and anesthesia. Not stopping the medication for a long enough time may result in your surgery being rescheduled. If you start any new medications after today's visit, please contact the surgeon's office. Blood Thinning Medications: - Stop NSAIDS (Ibuprofen, Advil, Aleve, Motrin, Celebrex, Mobic, etc.) 7 days before surgery, as directed by your surgeon. - Stop ALL herbal and dietary supplements 7 days before surgery. - You may take Tylenol (Acetaminophen) or any of your pain medications that do not contain aspirin or NSAIDS as needed. Important Reminders: - Candy, mints, and tobacco products are NOT permitted the morning of surgery. - Hearing aids, dentures and glasses may be worn the morning of surgery. - NO jewelry, body piercings, makeup, hairpins or contacts are to be worn the day of surgery. If you develop symptoms such as a fever, cold, or flu, or have other changes to your health within TWO DAYS of scheduled surgery or the morning of surgery, please contact the surgery center above. Personal Belongings: -Please have photo ID and insurance cards. -If you do not have a copy of advance directives on file with us, please bring a copy with you on the day of surgery. - Leave ALL valuables and money at home or with family members. For Outpatient Procedures: - YOU MUST HAVE A RESPONSIBLE POULTRYMAN TAKE YOU HOME. A S IRON WORKER OR COMMUTATOR UNDERCUTTER CANNOT BE MADE A RESPONSIBLE POULTRYMAN. - We recommend that a responsible person stays with you overnight to take care of you. - You cannot stay in a hotel alone after outpatient surgery. You will not be permitted to have your surgery, if you do not have someone to take care of you. Please be aware that emergency situations arise, which may delay or change your surgical time. If this happens, we will notify you as soon as possible and regret any inconvenience. If you already have an Advance Directive, please fax a copy to [phone] or email to for it to be added to your chart. If you do not have an Advance Directive, you can find the appropriate form and more information at [email or web address]. We recommend that you complete the Advance Directive form found on the website and bring it with you the day of your surgery. It can be witnessed and scanned into your chart that day. Misa Echeverria PA-C documented in this encounter [facility] 10-30-2024 History and physical note Images from the original note were not included. [facility] HISTORY AND PHYSICAL EXAMINATION SERVICE DATE: 10/30/2024 SERVICE TIME: 10:45 AM PRIMARY CARE PHYSICIAN: Hany Olivares MD REASON FOR VISIT: Enrrique Madera is a 58 year old male who is scheduled for Left - TLIF DECOMPRESSION LAMINECTOMY INTERBODY FUSION LUMBAR POSTERIOR (PLIF) LEVEL 1 Left - FUSION LUMBAR INTERBODY POSTERIOR LEVEL 2 FUSION LUMBAR INTERBODY POSTERIOR LEVEL 3 POSTERIOR SEGMENTAL INSTRUMENTATION FOLLOWING LUMBAR FUSION 3-6 LEVELS AUTOGRAFT FOR SPINE SURGERY ONLY, OBTAINED FROM SAME INCISION INSERTION INTERBODY BIOMED DEVICE(S) W/ANT INSTR ANCHORING TO DISC SPACE W/INTERBODY FUSION,EA INTERSPACE Left - LAMINECTOMY DECOMPRESSION FACETECTOMY AND FORAMINOTOMY Left - DECOMPRESSION LAMINECTOMY 2ND ADD'L LUMBAR SEGMENT Left - DECOMPRESSION LAMINECTOMY 3RD ADD'L LUMBAR SEMENT at the request of Dr. Ashley for consultation. My final recommendation will be communicated back to the requesting physician by way of shared medical record or letter. Assessment Patient has the following medical conditions which may affect jacinto-operative course: GERD without esophagitis Assessment: symptoms improved on omeprazole. Scheduled for EGD on 10/31 HTN (hypertension) Assessment: on lisinopril. Managed by PCP. Compliant with treatment. BP in office today 127/79 Last 14 Encounter BP Readings: Date: BP: 09/06/2024 124/78 07/06/2024 125/79 04/25/2024 143/77 04/11/2024 161/96 03/27/2024 144/107 03/19/2024 141/70 03/01/2024 132/71 BRADY (obstructive sleep apnea) Assessment: CPAP compliant Anxiety and depression Assessment: stable on Rx. Denies SI/HI Former smoker Assessment: 1.5 ppd. Started smoking at age 13. Quit in 1996 I - PHYSICAL EVALUATION AIRWAY Patient intubated: No. Tracheostomy tube not present Mallampati: II. TM distance: >3 FB. Neck ROM: full ROM without neurological symptoms. Mouth opening: adequate. Short neck: no. Thick neck: no Lucio present: no Microretrognathia/Micronagthia/R ecessed Chin: No DENTAL Dental findings: teeth intact. Additional comments: Implant x 1. II - ANESTHESIA PLAN Anesthetic plan additional comments: *PACC/TCI - anesthesia choice. Beta Sharmin Monitoring Plan Post Procedure Analgesic Plan ANESTHESIA FINDINGS: Intubation History: No history of difficult intubation Significant Anesthesia Considerations: none Airway History: No history of difficult airway Drummond Activity Status Index: METS: Walk indoors, such as around the house (1.75 METs) Do light work around the house, such as dusting or washing dishes (2.70 METs) Take care of self; that is eating, dressing, bathing, using the toilet (2.75 METs) Do moderate work around the house, such as vacuuming, sweeping floors, or carrying in groceries (3.50 METs) Climb a flight of stairs or walk up a hill (5.50 METs) DASI Score: 16.2 (Limited physical activity due to back pain) Patient denies any chest pain or undue shortness of breath with the above physical activity. STOP-Bang Score: STOP-Bang Score: 0 (BRADY on CPAP) [id number] Score: Age: <65 Sex: male CHF history: No Hypertension history: Yes Stroke/TIA/thromboembolism history: No Vascular disease history: No Diabetes history: No [id number] Score: 1 Prepared for surgery: This patient is optimally prepared for surgery pending LABS and EKG. CONSULTS: Patient does not require consults for optimization at this time. The Following Tests/Procedures Have Been Initiated: Orders Placed This Encounter CMP Standing Status: Future Expected Date: 10/30/2024 Expiration Date: 01/29/2025 Confirm Blood Type Standing Status: Future Expected Date: 10/30/2024 Expiration Date: 01/29/2025 Did Blood Bank direct you to place this order:: No - Presurgical Workflow ECG (IN OFFICE) CBC, T&S, Ferritin, Iron TIBC, Nicotine/cotinine -surgeon's orders Planned Anesthetic: Per anesthesia choice Subjective CHIEF COMPLAINT: back pain HPI: Enrrique is a 58 y/o male who presents with a longstanding history of low back pain, that has worsened over the past 9 months. The pain is constant, aching, burning and occasionally sharp. The pain radiates into both legs. He c/o difficulty with balance. No recent falls. He denies loss of bowel or bladder control. He is scheduled for TLIF on 11/15. REVIEW OF SYSTEMS: PAIN ASSESSMENT: General: no fevers Neuro: Negative for headaches, seizures, tremor or stroke Respiratory: Negative for cough, wheezing or shortness of breath. Negative for hemoptysis. +BRADY Cardiovascular: Negative for chest pain, orthopnea, PND, dizziness, lightheadedness or syncope. Negative for heart murmur. Negative for palpitations or arrhythmia. Negative for h/o DVT/PE. Negative for LE edema +HTN GI: Negative for abdominal pain, blood in the stool, black stools or change in bowel habits +GERD : No history of UTI in past 6 weeks. No history of renal failure. Not currently on or requiring dialysis. Negative for dysuria, hematuria, urgency, frequency or incontinence Endocrine: Negative for polyuria, polydipsia, heat or cold intolerance. Negative for goiter Hematology: No history of bleeding or clotting disorder. Pt is not taking anti-coagulation or platelet medications. No history of hematological symptoms or problems. Oncology: No history of CA metastasis, chemo within 30 days, or radiotherapy within 90 days. Has not lost 10% of body wt in 6 months. No history of oncological symptoms or problems. Psych: Anxiety, Depression Marijuana use: No Musculoskeletal: See HPI Skin: Negative for lesions, rash and itching. Implanted Devices: No The patient has the following: ACTIVE PROBLEM LIST Burst Fracture of T12 Vertebra (Hcc) Chronic Pain Anxiety and Depression Gerd Without Esophagitis Htn (Hypertension) Brady (Obstructive Sleep Apnea) C7 Cervical Fracture (Hcc) Compression Fracture of Vertebral Column (Hcc) Low Back Pain Back Pain of Thoracolumbar Region Former Smoker Covid Immunization Dates Current Care Gaps Covid-19 Vaccine ( season) Overdue since 04/15/2024 08/10/2021 Imm Admin: COVID-19 original vaccine, full dose, monovalent (MODERNA) 11/20/2020 Imm Admin: COVID-19 original vaccine, full dose, monovalent (MODERNA) 10/23/2020 Imm Admin: COVID-19 original vaccine, full dose, monovalent (MODERNA) PAST MEDICAL HISTORY Diagnosis Date Burst fracture of T12 vertebra (HCC) 03/17/2014 Carpal tunnel syndrome of right wrist 01/26/2023 Chondromalacia of right knee 09/09/2020 Added automatically from request for surgery [id number] Chronic pain 03/01/2024 Depressive disorder 03/01/2024 Erectile dysfunction due to arterial insufficiency 03/01/2024 GERD without esophagitis 03/01/2024 HTN (hypertension) 03/01/2024 Low back pain 03/17/2014 BRADY (obstructive sleep apnea) 03/19/2024 History reviewed. No pertinent surgical history. No family history on file. Social History Tobacco Use Smoking status: Former Types: Cigarettes Smokeless tobacco: Former Types: Snuff Substance Use Topics Alcohol use: Not Currently Prior to Admission medications as of 10/30/24 1057 Medication Sig Last Dose Taking mupirocin (BACTROBAN) 2 % ointment Start five days prior to surgery. Apply 1/4 inch to a cotton swab and swab each nostril twice daily Yes Teriparatide (FORTEO) 20 mcg/dose (600mcg/2.4mL) Inject 0.08 mL subcutaneously once daily. Yes lisinopril (ZESTRIL) 20 mg tablet Take 1 tablet by mouth once daily. Yes omeprazole (PRILOSEC) 40 mg capsule Take 40 mg by mouth once daily as needed. Yes buprenorphine (BUTRANS) 15 mcg/hour patch Apply 1 Patch as directed one time a week. Taking 5 MCG. Yes buPROPion SR (WELLBUTRIN SR) 150 mg 12 hr tablet Take 150 mg by mouth two times a day. Yes diclofenac, EC, (VOLTAREN) 75 mg EC tablet Take 75 mg by mouth two times a day. Yes FLUoxetine (PROZAC) 20 mg capsule Take 40 mg by mouth once daily. Yes naloxone 4 mg/actuation nasal spray (NARCAN) Use 4 mg in the nose at bedtime as needed. Yes sildenafil (REVATIO) 20 mg tablet 2 TO 3 TABLETS, Oral, Daily, PRN: NEEDED, # 90 tab(s), 1 Refill(s), Pharmacy: [id number], TAKE 2 TO 3 TABLETS BY MOUTH ONCE DAILY NEEDED, 182.88, cm, 12/16/23 6:36:00 EDT, Height, 89.3, kg, 12/16/23 6:42:00 EDT, Weight Dosing Yes No medication comments found. ALLERGIES Allergen Reactions Oxycodone Other: See Comments Other Reaction(s): addiction/former addict. Agreeable to use during acute pain episode hospitalization Objective PHYSICAL EXAM: VITALS: BP 127/79 Pulse 64 Temp (Src) 98.6 (Temporal) Ht 5' 10.394 (1.79m) Wt 183 lb (83.0kg) SpO2 99% BMI 25.96 kg/(m^2). General: Alert and oriented Skin: Normal color, no rash, no lesions. HEENT: EOM, pupils equal, round and reactive. Cardiovascular: Normal S1 & S2, no rubs, murmurs or gallops. No JVD. Pulse regular. Lungs: Normal breath sounds, no wheezes or crackles. Abdomen: Soft, non-tender, no rigidity. Extremities: No deformity, no edema or tenderness, no joint swelling or clubbing. Neurological: Normal cognition, moves all extremities Pulses: Carotid and radial pulses normal +2. Diagnostic tests reviewed for today's visit: Lab Value Units Date High Low HB No results within date range. HCT No results within date range. WBC No results within date range. PLT No results within date range. NA 136 mmol/L 07/06/2024 144 136 K 4.1 mmol/L 07/06/2024 5.1 3.7 GLUC 64 mg/dL 07/06/2024 99 74 BUN 24 mg/dL 07/06/2024 24 9 CREAT 1.03 mg/dL 07/06/2024 1.22 0.73 PTSEC No results within date range. INR No results within date range. APTT No results within date range. ALT 28 U/L 07/06/2024 54 10 AST 39 U/L 07/06/2024 40 14 TBILI 0.5 mg/dL 07/06/2024 1.3 0.2 TSH No results within date range. Lab Value Units Date High Low HCGQT No results within date range. UHCG No results within date range. HCG, BODY* No results within date range. Lab Value Units Date High Low ABORHD No results within date range. ABSCREEN No results within date range. No results found for: HBA1C PENDING Instructions Given to Patient: Instructions located in the after visit summary. Patient given verbal and written preop instructions and voices comprehension and compliance. SIGNATURE: Misa Echeverria PA-C PATIENT NAME: Enrrique Madera DATE: 10/30/2024 TIME: 11:18 AM [facility] 10-30-2024 History and physical note Images from the original note were not included. [facility] HISTORY AND PHYSICAL EXAMINATION SERVICE DATE: 10/30/2024 SERVICE TIME: 10:45 AM PRIMARY CARE PHYSICIAN: Hany Olivares MD REASON FOR VISIT: Enrrique Madera is a 58 year old male who is scheduled for Left - TLIF DECOMPRESSION LAMINECTOMY INTERBODY FUSION LUMBAR POSTERIOR (PLIF) LEVEL 1 Left - FUSION LUMBAR INTERBODY POSTERIOR LEVEL 2 FUSION LUMBAR INTERBODY POSTERIOR LEVEL 3 POSTERIOR SEGMENTAL INSTRUMENTATION FOLLOWING LUMBAR FUSION 3-6 LEVELS AUTOGRAFT FOR SPINE SURGERY ONLY, OBTAINED FROM SAME INCISION INSERTION INTERBODY BIOMED DEVICE(S) W/ANT INSTR ANCHORING TO DISC SPACE W/INTERBODY FUSION,EA INTERSPACE Left - LAMINECTOMY DECOMPRESSION FACETECTOMY AND FORAMINOTOMY Left - DECOMPRESSION LAMINECTOMY 2ND ADD'L LUMBAR SEGMENT Left - DECOMPRESSION LAMINECTOMY 3RD ADD'L LUMBAR SEMENT at the request of Dr. Ashley for consultation. My final recommendation will be communicated back to the requesting physician by way of shared medical record or letter. Assessment Patient has the following medical conditions which may affect jacinto-operative course: GERD without esophagitis Assessment: symptoms improved on omeprazole. Scheduled for EGD on 10/31 HTN (hypertension) Assessment: on lisinopril. Managed by PCP. Compliant with treatment. BP in office today 127/79 Last 14 Encounter BP Readings: Date: BP: 09/06/2024 124/78 07/06/2024 125/79 04/25/2024 143/77 04/11/2024 161/96 03/27/2024 144/107 03/19/2024 141/70 03/01/2024 132/71 BRADY (obstructive sleep apnea) Assessment: CPAP compliant Anxiety and depression Assessment: stable on Rx. Denies SI/HI Former smoker Assessment: 1.5 ppd. Started smoking at age 13. Quit in 1996 I - PHYSICAL EVALUATION AIRWAY Patient intubated: No. Tracheostomy tube not present Mallampati: II. TM distance: >3 FB. Neck ROM: full ROM without neurological symptoms. Mouth opening: adequate. Short neck: no. Thick neck: no Lucio present: no Microretrognathia/Micronagthia/R ecessed Chin: No DENTAL Dental findings: teeth intact. Additional comments: Implant x 1. II - ANESTHESIA PLAN Anesthetic plan additional comments: *PACC/TCI - anesthesia choice. Beta Sharmin Monitoring Plan Post Procedure Analgesic Plan ANESTHESIA FINDINGS: Intubation History: No history of difficult intubation Significant Anesthesia Considerations: none Airway History: No history of difficult airway Drummond Activity Status Index: METS: Walk indoors, such as around the house (1.75 METs) Do light work around the house, such as dusting or washing dishes (2.70 METs) Take care of self; that is eating, dressing, bathing, using the toilet (2.75 METs) Do moderate work around the house, such as vacuuming, sweeping floors, or carrying in groceries (3.50 METs) Climb a flight of stairs or walk up a hill (5.50 METs) DASI Score: 16.2 (Limited physical activity due to back pain) Patient denies any chest pain or undue shortness of breath with the above physical activity. STOP-Bang Score: STOP-Bang Score: 0 (BRADY on CPAP) [id number] Score: Age: <65 Sex: male CHF history: No Hypertension history: Yes Stroke/TIA/thromboembolism history: No Vascular disease history: No Diabetes history: No [id number] Score: 1 Prepared for surgery: This patient is optimally prepared for surgery pending LABS and EKG. CONSULTS: Patient does not require consults for optimization at this time. The Following Tests/Procedures Have Been Initiated: Orders Placed This Encounter CMP Standing Status: Future Expected Date: 10/30/2024 Expiration Date: 01/29/2025 Confirm Blood Type Standing Status: Future Expected Date: 10/30/2024 Expiration Date: 01/29/2025 Did Blood Bank direct you to place this order:: No - Presurgical Workflow ECG (IN OFFICE) CBC, T&S, Ferritin, Iron TIBC, Nicotine/cotinine -surgeon's orders Planned Anesthetic: Per anesthesia choice Subjective CHIEF COMPLAINT: back pain HPI: Enrrique is a 58 y/o male who presents with a longstanding history of low back pain, that has worsened over the past 9 months. The pain is constant, aching, burning and occasionally sharp. The pain radiates into both legs. He c/o difficulty with balance. No recent falls. He denies loss of bowel or bladder control. He is scheduled for TLIF on 4/3. REVIEW OF SYSTEMS: PAIN ASSESSMENT: General: no fevers Neuro: Negative for headaches, seizures, tremor or stroke Respiratory: Negative for cough, wheezing or shortness of breath. Negative for hemoptysis. +BRADY Cardiovascular: Negative for chest pain, orthopnea, PND, dizziness, lightheadedness or syncope. Negative for heart murmur. Negative for palpitations or arrhythmia. Negative for h/o DVT/PE. Negative for LE edema +HTN GI: Negative for abdominal pain, blood in the stool, black stools or change in bowel habits +GERD : No history of UTI in past 6 weeks. No history of renal failure. Not currently on or requiring dialysis. Negative for dysuria, hematuria, urgency, frequency or incontinence Endocrine: Negative for polyuria, polydipsia, heat or cold intolerance. Negative for goiter Hematology: No history of bleeding or clotting disorder. Pt is not taking anti-coagulation or platelet medications. No history of hematological symptoms or problems. Oncology: No history of CA metastasis, chemo within 30 days, or radiotherapy within 90 days. Has not lost 10% of body wt in 6 months. No history of oncological symptoms or problems. Psych: Anxiety, Depression Marijuana use: No Musculoskeletal: See HPI Skin: Negative for lesions, rash and itching. Implanted Devices: No The patient has the following: ACTIVE PROBLEM LIST Burst Fracture of T12 Vertebra (Hcc) Chronic Pain Anxiety and Depression Gerd Without Esophagitis Htn (Hypertension) Brady (Obstructive Sleep Apnea) C7 Cervical Fracture (Hcc) Compression Fracture of Vertebral Column (Hcc) Low Back Pain Back Pain of Thoracolumbar Region Former Smoker Covid Immunization Dates Current Care Gaps Covid-19 Vaccine ( season) Overdue since 04/15/2024 08/10/2021 Imm Admin: COVID-19 original vaccine, full dose, monovalent (MODERNA) 11/20/2020 Imm Admin: COVID-19 original vaccine, full dose, monovalent (MODERNA) 10/23/2020 Imm Admin: COVID-19 original vaccine, full dose, monovalent (MODERNA) PAST MEDICAL HISTORY Diagnosis Date Burst fracture of T12 vertebra (HCC) 03/17/2014 Carpal tunnel syndrome of right wrist 01/26/2023 Chondromalacia of right knee 09/09/2020 Added automatically from request for surgery [id number] Chronic pain 03/01/2024 Depressive disorder 03/01/2024 Erectile dysfunction due to arterial insufficiency 03/01/2024 GERD without esophagitis 03/01/2024 HTN (hypertension) 03/01/2024 Low back pain 03/17/2014 BRADY (obstructive sleep apnea) 03/19/2024 History reviewed. No pertinent surgical history. No family history on file. Social History Tobacco Use Smoking status: Former Types: Cigarettes Smokeless tobacco: Former Types: Snuff Substance Use Topics Alcohol use: Not Currently Prior to Admission medications as of 10/30/24 1057 Medication Sig Last Dose Taking mupirocin (BACTROBAN) 2 % ointment Start five days prior to surgery. Apply 1/4 inch to a cotton swab and swab each nostril twice daily Yes Teriparatide (FORTEO) 20 mcg/dose (600mcg/2.4mL) Inject 0.08 mL subcutaneously once daily. Yes lisinopril (ZESTRIL) 20 mg tablet Take 1 tablet by mouth once daily. Yes omeprazole (PRILOSEC) 40 mg capsule Take 40 mg by mouth once daily as needed. Yes buprenorphine (BUTRANS) 15 mcg/hour patch Apply 1 Patch as directed one time a week. Taking 5 MCG. Yes buPROPion SR (WELLBUTRIN SR) 150 mg 12 hr tablet Take 150 mg by mouth two times a day. Yes diclofenac, EC, (VOLTAREN) 75 mg EC tablet Take 75 mg by mouth two times a day. Yes FLUoxetine (PROZAC) 20 mg capsule Take 40 mg by mouth once daily. Yes naloxone 4 mg/actuation nasal spray (NARCAN) Use 4 mg in the nose at bedtime as needed. Yes sildenafil (REVATIO) 20 mg tablet 2 TO 3 TABLETS, Oral, Daily, PRN: NEEDED, # 90 tab(s), 1 Refill(s), Pharmacy: [id number], TAKE 2 TO 3 TABLETS BY MOUTH ONCE DAILY NEEDED, 182.88, cm, 12/16/23 6:36:00 EDT, Height, 89.3, kg, 12/16/23 6:42:00 EDT, Weight Dosing Yes No medication comments found. ALLERGIES Allergen Reactions Oxycodone Other: See Comments Other Reaction(s): addiction/former addict. Agreeable to use during acute pain episode hospitalization Objective PHYSICAL EXAM: VITALS: BP 127/79 Pulse 64 Temp (Src) 98.6 (Temporal) Ht 5' 10.394 (1.79m) Wt 183 lb (83.0kg) SpO2 99% BMI 25.96 kg/(m^2). General: Alert and oriented Skin: Normal color, no rash, no lesions. HEENT: EOM, pupils equal, round and reactive. Cardiovascular: Normal S1 & S2, no rubs, murmurs or gallops. No JVD. Pulse regular. Lungs: Normal breath sounds, no wheezes or crackles. Abdomen: Soft, non-tender, no rigidity. Extremities: No deformity, no edema or tenderness, no joint swelling or clubbing. Neurological: Normal cognition, moves all extremities Pulses: Carotid and radial pulses normal +2. Diagnostic tests reviewed for today's visit: Lab Value Units Date High Low HB No results within date range. HCT No results within date range. WBC No results within date range. PLT No results within date range. NA 136 mmol/L 07/06/2024 144 136 K 4.1 mmol/L 07/06/2024 5.1 3.7 GLUC 64 mg/dL 07/06/2024 99 74 BUN 24 mg/dL 07/06/2024 24 9 CREAT 1.03 mg/dL 07/06/2024 1.22 0.73 PTSEC No results within date range. INR No results within date range. APTT No results within date range. ALT 28 U/L 07/06/2024 54 10 AST 39 U/L 07/06/2024 40 14 TBILI 0.5 mg/dL 07/06/2024 1.3 0.2 TSH No results within date range. Lab Value Units Date High Low HCGQT No results within date range. UHCG No results within date range. HCG, BODY* No results within date range. Lab Value Units Date High Low ABORHD No results within date range. ABSCREEN No results within date range. No results found for: HBA1C PENDING Instructions Given to Patient: Instructions located in the after visit summary. Patient given verbal and written preop instructions and voices comprehension and compliance. SIGNATURE: Misa Echeverria PA-C PATIENT NAME: Enrrique Madera DATE: 10/30/2024 TIME: 11:18 AM documented in this encounter [facility] 10-26-2024 Telephone encounter Note Neuro SPINE CARE COORDINATION QUICK NOTE Post operative appointment is scheduled incorrectly. A message for appointment time change has been sent to S70 as follows, This patient has a scheduled post op virtual appointment with Elisa Pa-C at 1000 on 11/30. This should be scheduled for a post op VV 11/30 with Elisa Pa-C but at 3:00 Claritza Luna RN Spine [address] Reporter [facility] 10-26-2024 Miscellaneous Notes Neuro SPINE CARE COORDINATION QUICK NOTE Post operative appointment is scheduled incorrectly. A message for appointment time change has been sent to S70 as follows, This patient has a scheduled post op virtual appointment with Elisa Pa-C at 1000 on 11/30. This should be scheduled for a post op VV 11/30 with Elisa Pa-C but at 3:00 Claritza Luna RN Spine District [address] Reporter documented in this encounter [facility] 10-18-2024 Telephone encounter Note Surgery Planning Name: Enrrique Madera Age: [age] year old Wt: 86.3 kg (190 lb 4.1 oz) BMI: 25.80 kg/(m^2) Patient's Home Address: [address] [place] [address] Diagnosis: Status post lumbar spine surgery for decompression of spinal cord Procedure: Lumbar Decompression with Fusion at L3/4, 4/5 5/S1 TLIF left sided facetectomies Special needs: microscope, Cell saver Length of Surgery:6 Last In-person/VV appointment w/ Surgeon:08/24/24 PMH: PAST MEDICAL HISTORY Diagnosis Date Burst fracture of T12 vertebra (HCC) 03/17/2014 Carpal tunnel syndrome of right wrist 01/26/2023 Chondromalacia of right knee 09/09/2020 Added automatically from request for surgery [id number] Chronic pain 03/01/2024 Depressive disorder 03/01/2024 Erectile dysfunction due to arterial insufficiency 03/01/2024 GERD without esophagitis 03/01/2024 HTN (hypertension) 03/01/2024 Low back pain 03/17/2014 BRADY (obstructive sleep apnea) 03/19/2024 PSH: No past surgical history on file. Nicotine: Tobacco Use: Types: Cigarettes, Snuff HGBA1C: No results found for: HBA1C CBC: Hemoglobin (g/dL) Date Value 03/23/2024 14.2 Hematocrit (%) Date Value 03/23/2024 42.1 WBC (k/uL) Date Value 03/23/2024 11.41 Platelet Count (k/uL) Date Value 03/23/2024 251 Optimization Labs:Blood Management and Nicotine testing Images: XR:NA MRI:NA CT (ALIF):NA Blood Thinner: No Consults: Type(s):None Provider: NA Conservative Therapy: RX NSAIDS for 3 Months or Greater (diclofenac (Voltaren, [place])) PT Narcotic: Buprenorphine patch Membrane stabilizer: Gabapentin tried, now Lyrica Oral steroids Tylenol Injections: Multiple different injections over the years - 04/23/24: Right L3-[address] Bradshaw- >80% improvement for 4 days PT notes obtained if completed:NA Other Medication/Concerns: NA Transplant History:No Implants: No Orders Nicotine X HGBA1C N/A Blood MGMT X Pre-op Imaging N/A Surg Elective X PACC X MRSA Swab X Urology/CT Lumbar N/A Trek X Team MC X Education MC X [facility] 10-18-2024 Miscellaneous Notes Surgery Planning Name: Enrrique Madera Age: [age] year old Wt: 86.3 kg (190 lb 4.1 oz) BMI: 25.80 kg/(m^2) Patient's Home Address: [address] [place] [address] Diagnosis: Status post lumbar spine surgery for decompression of spinal cord Procedure: Lumbar Decompression with Fusion at L3/4, 4/5 5/S1 TLIF left sided facetectomies Special needs: microscope, Cell saver Length of Surgery:6 Last In-person/VV appointment w/ Surgeon:08/24/24 PMH: PAST MEDICAL HISTORY Diagnosis Date Burst fracture of T12 vertebra (HCC) 03/17/2014 Carpal tunnel syndrome of right wrist 01/26/2023 Chondromalacia of right knee 09/09/2020 Added automatically from request for surgery [id number] Chronic pain 03/01/2024 Depressive disorder 03/01/2024 Erectile dysfunction due to arterial insufficiency 03/01/2024 GERD without esophagitis 03/01/2024 HTN (hypertension) 03/01/2024 Low back pain 03/17/2014 BRADY (obstructive sleep apnea) 03/19/2024 PSH: No past surgical history on file. Nicotine: Tobacco Use: Types: Cigarettes, Snuff HGBA1C: No results found for: HBA1C CBC: Hemoglobin (g/dL) Date Value 03/23/2024 14.2 Hematocrit (%) Date Value 03/23/2024 42.1 WBC (k/uL) Date Value 03/23/2024 11.41 Platelet Count (k/uL) Date Value 03/23/2024 251 Optimization Labs:Blood Management and Nicotine testing Images: XR:NA MRI:NA CT (ALIF):NA Blood Thinner: No Consults: Type(s):None Provider: NA Conservative Therapy: RX NSAIDS for 3 Months or Greater (diclofenac (Voltaren, [place])) PT Narcotic: Buprenorphine patch Membrane stabilizer: Gabapentin tried, now Lyrica Oral steroids Tylenol Injections: Multiple different injections over the years - 04/23/24: Right L3-[address] Bradshaw- >80% improvement for 4 days PT notes obtained if completed:NA Other Medication/Concerns: NA Transplant History:No Implants: No Orders Nicotine X HGBA1C N/A Blood MGMT X Pre-op Imaging N/A Surg Elective X PACC X MRSA Swab X Urology/CT Lumbar N/A Trek X Team MC X Education MC X documented in this encounter [facility] 10-10-2024 Telephone encounter Note Neuro SPINE CARE COORDINATION QUICK NOTE Called to speak with patient about moving surgery up to 4/3 as patient was hoping for either the first or second week of November. Patient accepted this new date is flexible as to when his PACC needs to be done. Patient states that he will do whatever date and time is necessary. Will get patient scheduled for surgery 4/3. Patient verbalized understanding of information provided by nurse. Patient instructed to call back should symptoms change or worsen. Patient has no other questions or concerns at this time. Patient advised to follow up with office with any additional issues. Claritza Luna RN Spine District Court Reporter [facility] 10-10-2024 Miscellaneous Notes Neuro SPINE CARE COORDINATION QUICK NOTE Called to speak with patient about moving surgery up to 4/3 as patient was hoping for either the first or second week of November. Patient accepted this new date is flexible as to when his PACC needs to be done. Patient states that he will do whatever date and time is necessary. Will get patient scheduled for surgery 4/3. Patient verbalized understanding of information provided by nurse. Patient instructed to call back should symptoms change or worsen. Patient has no other questions or concerns at this time. Patient advised to follow up with office with any additional issues. Claritza Luna RN Spine District Court Reporter documented in this encounter [facility] 10-01-2024 Hospital Discharg e instructions Patient Education 10/01/2024 12:16:38 Prostate Cancer Screening Prostate Cancer Screening Prostate cancer screening is testing that is done to check for the presence of prostate cancer in men. The prostate gland is a walnut-sized gland that is located below the bladder and in front of the rectum in males. The function of the prostate is to add fluid to semen during ejaculation. Prostate cancer is one of the most common types of cancer in men. Who should have prostate cancer screening? Screening recommendations vary based on age and other risk factors, as well as between the professional organizations who make the recommendations. In general, screening is recommended if: You are age 50 to 70 and have an average risk for prostate cancer. You should talk with your health care provider about your need for screening and how often screening should be done. Because most prostate cancers are slow growing and will not cause , screening in this age group is generally reserved for men who have a 10- to 15-year life expectancy. You are younger than age 50, and you have these risk factors: ?Having a father, brother, or uncle who has been diagnosed with prostate cancer. The risk is higher if your family member's cancer occurred at an early age or if you have multiple family members with prostate cancer at an early age. ?Being a male who is Black or is of [place] or sub-Saharan descent. In general, screening is not recommended if: You are younger than age 40. You are between the ages of 40 and 49 and you have no risk factors. You are 70 years of age or older. At this age, the risks that screening can cause are greater than the benefits that it may provide. If you are at high risk for prostate cancer, your health care provider may recommend that you have screenings more often or that you start screening at a younger age. How is screening for prostate cancer done? The recommended prostate cancer screening test is a blood test called the prostate-specific antigen (PSA) test. PSA is a protein that is made in the prostate. As you age, your prostate naturally produces more PSA. Abnormally high PSA levels may be caused by: Prostate cancer. An enlarged prostate that is not caused by cancer (benign prostatic hyperplasia, or BPH). This condition is very common in older men. A prostate gland infection (prostatitis) or urinary tract infection. Certain medicines such as male hormones (like testosterone) or other medicines that raise testosterone levels. A rectal exam may be done as part of prostate cancer screening to help provide information about the size of your prostate gland. When a rectal exam is performed, it should be done after the PSA level is drawn to avoid any effect on the results. Depending on the PSA results, you may need more tests, such as: A physical exam to check the size of your prostate gland, if not done as part of screening. Blood and imaging tests. A procedure to remove tissue samples from your prostate gland for testing (biopsy). This is the only way to know for certain if you have prostate cancer. What are the benefits of prostate cancer screening? Screening can help to identify cancer at an early stage, before symptoms start and when the cancer can be treated more easily. There is a small chance that screening may lower your risk of dying from prostate cancer. The chance is small because prostate cancer is a slow-growing cancer, and most men with prostate cancer from a different cause. What are the risks of prostate cancer screening? The main risk of prostate cancer screening is diagnosing and treating prostate cancer that would never have caused any symptoms or problems. This is called overdiagnosisand overtreatment. PSA screening cannot tell you if your PSA is high due to cancer or a different cause. A prostate biopsy is the only procedure to diagnose prostate cancer. Even the results of a biopsy may not tell you if your cancer needs to be treated. Slow-growing prostate cancer may not need any treatment other than monitoring, so diagnosing and treating it may cause unnecessary stress or other side effects. Questions to ask your health care provider When should I start prostate cancer screening? What is my risk for prostate cancer? How often do I need screening? What type of screening tests do I need? How do I get my test results? What do my results mean? Do I need treatment? Where to find more information [employer]: www.cancer.org [employer]: www.auanet.org Contact a health care provider if: You have difficulty urinating. You have pain when you urinate or ejaculate. You have blood in your urine or semen. You have pain in your back or in the area of your prostate. Summary Prostate cancer is a common type of cancer in men. The prostate gland is located below the bladder and in front of the rectum. This gland adds fluid to semen during ejaculation. Prostate cancer screening may identify cancer at an early stage, when the cancer can be treated more easily and is less likely to have spread to other areas of the body. The prostate-specific antigen (PSA) test is the recommended screening test for prostate cancer, but it has associated risks. Discuss the risks and benefits of prostate cancer screening with your health care provider. If you are age 70 or older, the risks that screening can cause are greater than the benefits that it may provide. This information is not intended to replace advice given to you by your health care provider. Make sure you discuss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 Non 8th floor [address] Subjective INTERVAL HPI: -Reports persistent RLE spasm, [...] Drains, and Airways Line Duration Peripheral 03/19/24 [facility] Short Right Antecubital 22 Gauge 1 day [...] Mcgraw on DATE TIME via verbal communication. Head Insulation Board Saw Operator: PSCB Transcribe Date/Time: Mar 19 2024 4:07P Dictated by : BENEDICT REBOLLEDO MD This examination was interpreted and the report reviewed and electronically signed by: NAKIA CARRINGTON MD on Mar 19 2024 4:45PM EST XR SCOLIOSIS PA STAND/LAT 2V Result Date: 03/19/2024 (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[facility] 03-20-2024 NoteHNO ID: [id number] Author: MICHAEL AGUIRRE CPhT Service: Pharmacy Author Type: Cad Design Engineer Type: Plan of Care Filed: 03/20/2024 10:43 Note Text: Insurance investigation completed Patient has active prescription insurance: Yes - Patient's insurance is in-network with [facility] Insurance loaded into [place]: Already loaded Test claim was completed to verify insurance is active: Successful Any questions, please contact your medication residency program coordinator. Pager #: [phone] Medical Specialty Hospital [facility]08-05-2024 NoteHNO ID: [id number] Author: SAVANNA SANTIAGO MD Service: Neurosurgery Author Type: Resident Type: Plan of Care Filed: 03/19/2024 18:08 Note Text: Neurosurgery Plan of Care XR L spine flex/ext and XR scoli completed/reviewed. Repeat MRI L spine dna analyst sequence completed/reviewed as well Updated Plan: - No indication for acute neurosurgical intervention - Maintain follow-up appointment with Dr. Violeta Black on 04/06/24 - Pain control per ED/Medicine - NSGY will sign off Plan discussed with chief and staff, Dr. Shai Santiago MD PGY-2, Neurological Surgery Pager: [phone] 6:05 PM 03/19/24 Please page [phone] after 6pm, on weekends, or if unable to reach the above [facility]08-05-2024 Note [id number] Medical Center08-02-2024 [facility] SURGERY Clinical Discharge Summary PERSON INFORMATION Name ENRRIQUE MADERA Age 58 Years 1965 Sex MALE Language Georgian PCP DEVI MUNOZ DO Marital Status Med Service Pain Management Surgery Acct# Arrival 03/16/2024 07:53:26 Visit Reason SACROILIITIS Acuity LOS 002 22:17 Address: [address] [place] [address] Comment: PROVIDER INFORMATION VITALS INFORMATION Vital Sign [...] and Radiology Results Labo (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[facility] HospitalYsjbeups00-72-9394 Note [id number] The history of present illness has been reviewed. There are no changes document. [Electronically Signed on: 03/16/2024 08:26 EDT] JACINTO OLMOS MD [Verified on: 03/16/2024 08:26 EDT] JACINTO OLMOS MD [Transcribed on: 03/15/2024 12:51 EDT] [facility]07-25-2024 Telephone encounter Note* Telephone Encounter - Jaye Fontanez - 03/08/2024 4:36 PM EDT MRI is in get images 02/06/24. [facility]07-25-2024 Miscellaneous Notes* Telephone Encounter - Jaye Fontanez - 03/08/2024 4:36 PM EDT MRI is in get images 02/06/24. * Telephone Encounter - Diane Gonzalez RN [...] AM EDT Call received for Kian Mcdermott APRN.LIVESTOCK CARETAKER regarding Enrrique Madera. Caller: Self Patient Identified by Name and : Yes Reason for Call: General Question Please return call Is there any additional information the provider should know? No Last Office Visit: 03/01/2024 Next scheduled appointment: Visit date not found Best number to reach caller: [phone] Best time to reach caller: any Is it OK to leave a detailed voice message? Yes Dionne Caballero documented in this encounterFairfield Medical Center07-25-2024 Telephone encounter Note * Telephone Encounter - [...] some. Taking gabapentin and using Butrans patches. [facility]07-25-2024 Telephone encounter Note* Telephone Encounter - Dionne Caballero - 03/08/2024 10:35 AM EDT Call received for Kian Mcdermott APRN.LIVESTOCK CARETAKER regarding Enrrique Madera. Caller: Self Patient Identified by Name and : Yes Reason for Call: General Question Please return call Is there any additional information the provider should know? No Last Office Visit: 03/01/2024 Next scheduled appointment: Visit date not found Best number to reach caller: [phone] Best time to reach caller: any Is it OK to leave a detailed voice message? Yes Dionne Caballero [facility]07-22-2024 Note [id number]07-19-2024 NoteHNO ID: [id number] Author: KIAN MCDERMOTT APRN.CNP Service: ? Author [...] contact him with next steps. Kian Mcdermott APRN.[facility]NPAd[facility]07[facility] History of Present illness Narrative* Kian Mcdermott [...] steps. Kian Mcdermott APRN.CNP documented in this [facility]-2024 [facility] SURGERY Clinical Discharge Summary PERSON INFORMATION Name ENRRIQUE AMDERA Age 58 Years 1965 Sex MALE Language Georgian PCP DEVI MUNOZ DO Marital Status Med Service Pain Management Surgery Acct# Arrival 03/02/2024 08:41:01 Visit Reason LUMBAR NEURITIS Acuity LOS 002 20:59 Address: [address] [place] [address] Comment: PROVIDER INFORMATION VITALS INFORMATION Vital Sign [...] Comment: Lab and Radiolog (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[id number] Note Patient Outreach (SPNSMN) ENRRIQUE MADERA ([id number]) 1965 M Date Time Provider Department 03/02/24 KIAN MCDERMOTTCO During your visit today, we recorded the [...] NEEDED, # 90 tab(s), 1 Refill(s), Pharmacy: [facility], TAKE 2 TO 3 TABLETS [...] 03/01/2024 Encounter Status:Closed by KIAN MCDERMOTT on 03/02/24[facility] 03-01-2024 [id number] No changes to the document [Electronically Signed on: 03/02/2024 09:48 EDT] JACINTO OLMOS MD [Verified on: 03/02/2024 09:48 EDT] JACINTO OLMOS MD [Transcribed on: 03/01/2024 14:27 EDT] [facility]07-18-2024 Instructions* Patient Instructions* Kian Mcdermott APRN.CNP - 03/01/2024 2:15 PM EDT Dear Mr. Madera Please mail in or upload imaging from outside facility. If you upload (see instructions below), please let the office know. Thank you. Mailing instructions: CC C/O Violeta Black MD; Kian Mcdermott CNP [address] [facility]/[place] [address] Upload Instructions: The [facility] has a secure [...] or have questions, please email us at Sherley . To upload images to the secure [facility] website please click on the following link: [email or web address] [facility] as the center. OR Use link below [email or web address] Please have imaging reports faxed to us at [phone] PLEASE NOTE: [employer] ([employer]) computers are not supported by this application at this time. The application will work with the latest versions of Internet Explorer, Google Chrome, Firefox, and WeVideoa. Thank you Kian Mcdermott APRN.CNP documented in this encounterFairfield Medical Center07-18-2024 NoteHNO ID: [id number] Author: KIAN MCDERMOTT APRN.CNP Service: ? Author [...] for thoracic compression fractures. 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 GENERAL: Denies fever, chills malaise and weight loss. HEENT: No recent change in vision or hearing. CARDIOVASCULAR: Hypertension RESPIRATORY: Denies SOB, sputum production, and hemoptysis. GI: De (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[facility]07-18-[facility] History of Present illness Narrative* Kian Mcdermott APRN.LIVESTOCK CARETAKER - 03/01/2024 1:29 PM EDT SPINE SURGERY [...] for thoracic compression fractures. 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 Jwxm-ll-dkuqqpywyruwf and euzqcjoa-dl-zgcdof left neuroforaminal narrowing. XR L 09/23/23: Multilevel [...] spine surgery for decompression of spinal cord Ernrique Madera has a condition that requires further [...] TIME: 1:29 PM PAGER: documented in this encounterFairfield Medical Center07-12-2024 NoteEntered by DEVI MUNOZ DO on February 24, 2024 21:45:15 EDT From: DEVI MUNOZ DO To: [facility] 144 Sent: 02/24/2024 21:45:15 EDT Subject: Medication Management Submitted: Complete:sildenafil (sildenafil 20 mg oral tablet) Signed by DEVI MUNOZ DO 02/24/2024 21:45:00 EDT Approved with modifications: sildenafil (Sildenafil Citrate 20 MG Oral Tablet) TAKE 2 TO 3 TABLETS BY MOUTH ONCE DAILY NEEDED Qty: 90 tab(s) Days Supply: 30 Refills: 1 Substitutions Allowed Route To Pharmacy - [facility] 1445 From: [facility] To: DEVI MUNOZ DO Sent: February 24, 2024 4:41:23 AM CDT Subject: Medication Management Due: February 25, 2024 12:10:55 AM CDT On Hold Pending Signature Dispensed Drug: sildenafil (sildenafil 20 mg oral tablet), TAKE 2 TO 3 TABLETS BY MOUTH ONCE DAILY NEEDED Quantity: 90 tab(s) Days Supply: 30 Refills: 0 Substitutions Allowed Notes from Pharm[facility]: [facility] HospitalLyypblpp71-28-9886 NoteHNO ID: [id number] Author: CIERA HAMILTON PA-C Service: ? Author Type: Physician Hunter Type: Progress Notes Filed: 02/10/2024 16:52 Note [...] - [facility] - [address], [place] [address] - scraping of arthritis AND repair 2 [...] left hemilaminectomy. Mild spinal canal narrowing with gzqj-jf-wewqzckx right and moderate left neuroforaminal narrowing. L4-L5: Left paracentral disc protrusion, mild facet arthropathy and laminectomy changes without significant spinal canal narrowing. Minimal narrowing of the left subarticular recess. Tljy-fh-pxsneoce right and tohgzudg-np-yxpfrw left neuroforaminal narrowing. L5-S1: Laminectomy changes and facet arthropathy. No spinal canal narrowing. Jbsg-md-bnkrkcnb right and moderate left neuroforaminal narrowing. Disposition: [...] can be reviewed during the appt R[facility]06-28-2024 History of Present illness Narrative* Ciera Hamilton [...] surgery: yes 07/2023 - [facility] - [address], [place] [address] - scraping of arthritis & repair 2 [...] left hemilaminectomy. Mild spinal canal narrowing with ngtp-qi-mkrtuprb right and moderate left neuroforaminal narrowing. L4-L5: Left paracentral disc protrusion, mild facet arthropathy and laminectomy changes without significant spinal canal narrowing. Minimal narrowing of the left subarticular recess. Oyhd-ns-ivcmocksdrtkv and lrdoeoiw-sy-vubtvi left neuroforaminal narrowing. L5-S1: Laminectomy changes and facet arthropathy. No spinal canal narrowing. Pszu-jk-gyjnptqs rightand moderate left neuroforaminal narrowing. Disposition: Based [...] [place] Are you being referred by a [place] for Spine Health Provider or Pain Management Provider at [facility]? No If answer is YES please [...] the facility where the MRI/CT/myelogram was completed: [facility] [employer] [place] [address] MRI/CT/myelogram viewable in Epic: No If not, please provide [phone] to fax in imaging reports for review. Also, please inform patient to hand carry imaging disc to appointment. XR (spine) within 12 months: Yes If YES, please ask for the name/address of the facility where the [facility] [address] [place] [address] Dr. Purvis's patients: Have you had previous [...] the injections and/or physical therapy was completed PT [address] [address] Have you tried any other kinds of [...] was completed: 07/2023 - [facility] - [address] [place] [address] - scraping of arthritis & repair 2 herinations Additional Comments [phone] documented in this encounterFairfield Medical Center06-26-2024 NoteHNO ID: [id number] Author: ?, ?, ? Service: ? Author Type: ? Type: Progress Notes Filed: 02/10/2024 16:52 Note Text: Patient name: Enrrique Madera Are you being referred by a Center for Spine Health Provider or Pain Management Provider at [facility]? No If answer is YES please [...] the facility where the MRI/CT/myelogram was completed: [facility] [address] [place] [address] MRI/CT/myelogram viewable in Epic: No If not, please provide [phone] to fax in imaging reports for review. Also, please inform patient to hand carry imaging disc to appointment. XR (spine) within 12 months: Yes If YES,? please ask for the name/address of the facility where the XR was completed: [facility] [place] [address] Dr. Purvis's patients: Have you had previous [...] the injections and/or physical therapy was completed [address] [address] Have you tried any other kinds of [...] the surgery was completed: 07/2023 - [facility] - [address] [place] [address] - scraping of arthritis AND repair 2 herinations Additional Comments [phone] County Hospital06-11-2024 NoteEntered by DEVI MUNOZ DO on January 24, 2024 07:33:43 EDT From: DEVI MUNOZ DO To: [place] [address] Sent: 01/24/2024 07:33:43 EDT Subject: Medication Management [...] 0 Substitutions Allowed Route To Pharmacy - [facility]45 Approved with modifications: buPROPion (buPROPion HCl ER (SR) 150 MG Oral Tablet Extended Release 12 Hour) Take 1 tablet by mouth twice daily Qty: 180 tab(s) Days Supply: 90 Refills: 0 Substitutions Allowed Route To Pharmacy - [place] [address] From: [place] [address] To: DEVI MUNOZ DO Sent: January 24, [...] Refills: 0 Substitutions Allowed Notes [facility]Idqnqfig07-97-1488 Note [id number]05-06-2024 NoteEntered by DEVI MUNOZ DO on December 19, 2023 07:28:36 EDT From: DEVI MUNOZ DO To: [place] [address] Sent: 12/19/2023 07:28:36 EDT Subject: Medication Management Submitted: Complete:sildenafil (sildenafil 20 mg oral tablet) Signed by DEVI MUNOZ DO 12/19/2023 07:28:00 EDT Approved with modifications: sildenafil (Sildenafil Citrate 20 MG Oral Tablet) TAKE 2 TO 3 TABLETS BY MOUTH ONCE DAILY NEEDED Qty: 90 tab(s) Days Supply: 30 Refills: 1 Substitutions Allowed Route To Pharmacy - [facility] From: [facility] To: DEVI MUNOZ DO Sent: December 19, 2023 4:41:45 AM CDT Subject: Medication Management Due: December 20, 2023 12:08:31 AM CDT On Hold Pending Signature Dispensed Drug: sildenafil (sildenafil 20 mg oral tablet), TAKE 2 TO 3 TABLETS BY MOUTH ONCE DAILY NEEDED Quantity: 90 tab(s) Days Supply: 30 Refills: 0 Substitutions Allowed Notes [facility]: [id number] Note [facility] SURGERY Clinical Discharge Summary PERSON INFORMATION Name ENRRIQUE MADERA Age 58 Years 1965 Sex MALE Language Georgian PCP DEVI MUNOZ DO Marital Status Med Service Pain Management Surgery Acct# Arrival 12/16/2023 06:24:10 Visit Reason LUMBOSACRAL SPONDYLOSIS Acuity LOS 013 17:20 Address: [address] [place] [address] Comment: PROVIDER INFORMATION VITALS INFORMATION Vital Sign [...] AM 04/26/2024 9:15 AM Confirmed DIAGNOSIS Comment: TAMMY [facility]05-02-2024 Note [id number] The history of present illness has been reviewed. There are no changes document. [Electronically Signed on: 12/16/2023 06:56 EDT] JACINTO OLMOS MD [Verified on: 12/16/2023 06:56 EDT] JACINTO OLMOS MD [Transcribed on: 12/15/2023 12:08 EDT] [facility]04-06-2024 NoteEntered by DEVI MUNOZ DO on November 19, 2023 08:22:21 EDT From: DEVI MUNOZ DO To: [facility] Sent: 11/19/2023 08:22:21 EDT Subject: Medication Management Submitted: Complete:sildenafil (sildenafil 20 mg oral tablet) Signed by DEVI MUNOZ DO 11/19/2023 08:22:00 EDT Approved with modifications: sildenafil (Sildenafil Citrate 20 MG Oral Tablet) TAKE 2 TO 3 TABLETS BY MOUTH ONCE DAILY NEEDED Qty: 90 tab(s) Days Supply: 30 Refills: 0 Substitutions Allowed Route To Pharmacy - [place] [address] From: [place] [address] To: DEVI MUNOZ DO Sent: November 18, 2023 4:41:43 AM CDT Subject: Medication Management Due: November 19, 2023 12:14:39 AM CDT On Hold Pending Signature Dispensed Drug: sildenafil (sildenafil 20 mg oral tablet), TAKE 2 TO 3 TABLETS BY MOUTH ONCE DAILY NEEDED Quantity: 90 tab(s) Days Supply: 30 Refills: 0 Substitutions Allowed Notes [id number] Note [id number]03-22-2024 [facility] SURGERY Clinical Discharge Summary PERSON INFORMATION Name ENRRIQUE MADERA Age 57 Years 1965 Sex MALE Language Georgian PCP DEVI MUNOZ DO Marital Status Med Service Pain Management Surgery Acct# Arrival 11/04/2023 10:51:46 Visit Reason LUMBOSACRAL SPONDYLOSIS Acuity LOS 007 02:07 Address: [address] [place] [address] Comment: PROVIDER INFORMATION VITALS INFORMATION Vital Sign [...] AM Confirmed AMB Follow Up 15 (MAGR) [facility] 04/26/2024 9:00 AM 04/26/2024 9:15 AM Confirmed DIAGNOSIS Comment: PHYS DOC [facility]02-20-2024 History of Present illness Narrative* Daniel Childress MD - 10/04/2023 12:20 PM EST Images from the original note were not included. [facility] [address] [place] [address], [address] [place] [address] * CHART NOTE ? 10/06/2023 Patient: Enrrique Madera 1965 [id number] Physician: Daniel Childress MD CHIEF COMPLAINT Follow [...] and repeat his EMG. Denies loss of crystalizer operator strength, saddle anesthesia, urinary or bowel dysfunction, [...] Right achilles: 2+ Left achilles: 2+ Right crystalizer operator: 2+ Left crystalizer operator: 2+ Right Gonsalez: absent Left Gonsalez: absent [...] record of the patient encounter. Inadvertent computerized lead laying and gluing machine operator errors related to syntax, spelling, homophones, and/or inaudibility may be present. Scribe Statement: Scribed for and in the presence of Daniel Childress MD by Ramon Miller. Provider Statement: I, Daniel Childress MD personally performed the services described in the documentation, as scribedby OS in my presence, and it is both accurate and complete. documented in this encounterGuernsey [facility]02-20-2024 Instructions* Patient Instructions* RAN Stark - 10/04/2023 12:20 PM EST Patient was seen by Dr. Childress Patient will be off of work for 4 weeks. Patient will continue PT An order for EMG/NCS Both Legs Tramadol 50mg 1 tablet nightly 14 day supply, #30 1 refill. JA documented in this encounterGuernsey [facility] Hospital01-23-2024 History of Present illness Narrative* 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, CULINARY ARTS INSTRUCTOR-LIVESTOCK CARETAKER - 09/06/2023 3:00 PM EST Images from the original note were not included. [facility] [address] [place] [address], [address] [place] [address] * CHART NOTE ? 09/06/2023 Patient: Enrrique Madera 1965 [id number] Physician: Daniel Childress MD CHIEF COMPLAINT Post-op. [...] have injured his back. Denies loss of crystalizer operator strength, saddle anesthesia, urinary or bowel dysfunction, [...] Right achilles: 2+ Left achilles: 2+ Right crystalizer operator: 2+ Left crystalizer operator: 2+ Right Gonsalez: absent Left Gonsalez: absent [...] record of the patient encounter. Inadvertent computerized lead laying and gluing machine operator errors related to syntax, spelling, homophones, and/or inaudibility may be present. 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) [facility] Other 01-25-2023 Evaluation note* Encounter Date Diagnosis Assessment Notes Treatment Notes Treatment Clinical Notes Aug, Obstructive sleep apnea (ICD-10 - G47.33) [facility] Other Evaluation + Plan note Future Appointments Appointment Date:05/07/2024 08:00:00 AM Scheduled Provider: Location:[facility] Appointment Type:Surgery FT [facility] Evaluation + Plan note Future Appointments Appointment Date:05/29/2024 01:00:00 PM Scheduled Provider:Wilmer RUBIN MD Location:[facility] Plan [facility] Future Appointments Appointment Date:06/12/2024 04:00:00 PM Scheduled Provider:Wilmer RUBIN MD Location:[facility] Appointment [facility] + Plan note Future Appointments Appointment Date:05/03/2024 02:30:00 PM Scheduled Provider: Location:[facility] Appointment Type:Surgical PAT Appointment Date:05/07/2024 08:00:00 AM Scheduled Provider: Location:[facility] Appointment Type:Surgery FT [facility] [place] evaluation + Plan note Future Appointments Appointment Date:09/11/2024 10:20:00 AM Scheduled Provider:PURNIMA SARAH PA-C Location:[facility] Appointment Type:URO New Patient [facility] [place] evaluation noteNo assessment information available [facility] Work Phone: evaluation note* Diagnosis Degeneration of lumbar or lumbosacral intervertebral disc- Primary S/P lumbar laminectomy Other postprocedural status [facility]* Diagnosis Lumbar radiculopathy- Primary Thoracic or lumbosacral neuritis or radiculitis, unspecified Status post lumbar spine surgery for decompression of spinal cord documented in this encounter [facility] note* Diagnosis Onset Date Resolution Status BRADY (obstructive sleep apnea) acute Shift work sleep disorder ac tanana [facility] Work Phone: evaluation note* Diagnosis Other osteoporosis with current pathological fracture, initial encounter- Primary Lumbar radiculopathy Thoracic or lumbosacral neuritis or radiculitis, unspecified Status post lumbar spine surgery for decompression of spinal cord [facility] Diagnosis Other osteoporosis with current pathological fracture, initial encounter- Primary Other osteoporosis with current pathological fracture, initial encounter [facility]* Diagnosis Compression fracture of body of thoracic vertebra (HCC)- Primary Other fracture of unspecified thoracic vertebra, initial encounter for closed fracture (HCC) Compression fracture of C7 vertebra, sequela Other osteoporosis with current pathological fracture, initial encounter [facility]* Diagnosis Other osteoporosis with current pathological fracture, initial encounter- Primary Status post lumbar spine surgery for decompression of spinal cord Lumbar radiculopathy Thoracic or lumbosacral neuritis or radiculitis, unspecified Back pain of thoracolumbar region Lumbago Other osteoporosis with current pathological fracture, initial encounter [facility]* Diagnosis Other osteoporosis with current pathological fracture, initial encounter- Primary Lumbar radiculopathy Thoracic or lumbosacral neuritis or radiculitis, unspecified documented [facility]* Diagnosis Compression fracture of body of thoracic vertebra (HCC) documented [facility]* Diagnosis Other osteoporosis with current pathological fracture, initial encounter- Primary [facility]* Diagnosis Back pain, unspecified back location, unspecified back pain laterality, unspecified chronicity- Primary [facility] Diagnosis Back pain, unspecified back location, unspecified back pain laterality, unspecified chronicity [facility]* Diagnosis Onset Date Resolution Status BRADY (obstructive sleep apnea) acute Shift work sleep disorder ac tanana Arthritis of lumbosacral spine acute Lumbar degenerative disc disease acute Other chronic pain acute Post laminectomy syndrome ac tanana Sacroiliitis acute [facility] Work Phone: Evaluation note* Diagnosis Other osteoporosis with current pathological fracture, initial encounter- Primary Lumbar radiculopathy Thoracic or lumbosacral neuritis or radiculitis, unspecified Status post lumbar spine surgery for decompression of spinal cord [facility]* Diagnosis Age related osteoporosis, unspecified pathological fracture presence- Primary [facility]* Diagnosis Lumbosacral radiculopathy- Primary Thoracic or lumbosacral neuritis or radiculitis, unspecified [facility] Diagnosis Status post lumbar spine surgery for decompression of spinal cord- Primary [facility]* Diagnosis Lumbar radiculopathy- Primary Thoracic or lumbosacral neuritis or radiculitis, unspecified [facility]* Diagnosis Status post lumbar laminectomy- Primary Lumbar radiculopathy Thoracic or lumbosacral neuritis or radiculitis, unspecified Weakness of left lower extremity Sensory deficit, left documented [facility]* Diagnosis Status post lumbar laminectomy- Primary Weakness of left lower extremity documented [facility] this [facility]* Diagnosis Lumbar radiculopathy- Primary Thoracic or lumbosacral neuritis or radiculitis, unspecified Pre-op testing Preoperative examination, unspecified 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) Lumbar spondylosis Lumbosacral spondylosis without myelopathy Educational circumstance Anemia, unspecified type Lumbar radiculopathy Thoracic or lumbosacral neuritis or radiculitis, unspecified Pre-op testing Preoperative examination, unspecified documented [facility] this encounter [facility]* Diagnosis Preoperative examination- Primary Preoperative examination, unspecified GERD without esophagitis Esophageal reflux Primary hypertension Unspecified essential hypertension BRADY (obstructive sleep apnea) Obstructive sleep apnea (adult) (pediatric) Anxiety and depression Dysthymic disorder Former smoker Personal history of tobacco use, presenting hazards to health Lumbar radiculopathy Thoracic or lumbosacral neuritis or radiculitis, unspecified Pre-op testing Preoperative examination, unspecified * Assessment & Plan Note - Misa Echeverria PA-C - 10/30/2024 11:11 AM EDT Associated Problem(s): Former smoker Assessment: 1.5 ppd. Started smoking at age 13. Quit in 1996 * Assessment & Plan Note - Misa Echeverria PA-C - 10/30/2024 11:11 AM EDT Associated Problem(s): Anxiety and depression Assessment: stable on Rx. Denies SI/HI * Assessment & Plan Note - Misa Echeverria PA-C - 10/30/2024 11:09 AM EDT Associated Problem(s): BRADY (obstructive sleep apnea) Assessment: CPAP compliant * Assessment & Plan Note - Misa Echeverria PA-C - 10/30/2024 10:46 AM EDT Associated Problem(s): HTN (hypertension) Assessment: on lisinopril. Managed by PCP. Compliant with treatment. BP in office today 127/79 Last 14 Encounter BP Readings: Date: BP: 09/06/2024 124/78 07/06/2024 125/79 04/25/2024 143/77 04/11/2024 161/96 03/27/2024 144/107 03/19/2024 141/70 03/01/2024 132/71 * Assessment & Plan Note - Misa Echeverria PA-C - 10/30/2024 10:45 AM EDT Associated Problem(s): GERD without esophagitis Assessment: symptoms improved on omeprazole. Scheduled for EGD on 10/31 documented in this encounter [facility] general Narrative - Reported* Type Description Date Medical History chronic back pain Medical History depressive disorder Medical History E.[facility] Other Hospital course Narrative No data available for this section [facility] Discharge instructions No data available for this section [facility] [place] [facility] note No data available for this section [facility] [place] Reason for referral (narrative)* Diagnostic Procedure Only (Routine) - Closed Specialty Diagnoses / Procedures Referred By Rainer rodriguez Referred To Contact XR IMAGING Diagnoses Compression fracture of body of thoracic vertebra (HCC) Procedures DXA-AXIAL SKELETON Alison Briceno MD [address] [place] [address] Xr Imaging [facility] Referral ID Status Reason Start Date Expiration Date V isits Requested Visits Authorized [id number] Closed Auto-Generate d Referral 04/11/2024 05/11/2025 1 1 [facility] for referral (narrative)* Consultation (Routine) - Authorized Specialty Diagnoses / Procedures Referred By Rainer rodriguez Referred To Contact Rehabilitation Diagnoses Status post lumbar laminectomy Low back pain, non-specific 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 APRN-CNP [address] [place] [phone] [facility] [address] [place] [address] Referral ID Status Reason Start Date Expiration Date Visits Requested Visits Authorized [id number] Authorized Specialty Services Required 09/06/2023 09/05/2024 1 1 * Diagnostic Imaging (Routine) - Pending Review Specialty Diagnoses / Procedures Referred By Rainer rodriguez Referred To Contact Radiology Diagnoses Status post lumbar laminectomy Low back pain, non-specific Procedures MR lumbar spine with and without contrast 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 APRN-CNP [address] [place] [address] [facility] [address] [place] [address] Phone: [phone] Referral ID Status Reason Start Date Expiration Date V isits Requested Visits Authorized [id number] Pending Review 09/06/2023 09/05/2024 1 1 [facility] for visit Narrative* Diagnostic Procedure Only (Routine) - Closed Specialty Diagnoses / Procedures Referred By Contac t Referred To Contact XR IMAGING Diagnoses S/P lumbar laminectomy Degeneration of lumbar or lumbosacral intervertebral disc Procedures XR LUMBAR MOTION 4V AP/LAT/ FLEX/EXT RADEX SPINE LUMBOSACRAL MINIMUM 4 VIEWS Kian Mcdermott APRN.MIRANDA [address] Mail Code [address] [place] [phone] [facility] [place] [address] Referral ID Status Reason Start Date Expiration Date V isits Requested Visits Authorized [id number] Closed Auto-Generate d Referral 03/09/2024 04/08/2025 1 1 [facility] for visit Narrative* Diagnostic Procedure Only (Routine) - Closed Specialty Diagnoses / Procedures Referred By Contac t Referred To Contact XR IMAGING Diagnoses Compression fracture of body of thoracic vertebra (HCC) Procedures DXA-AXIAL SKELETON Alison Briceno MD [address] [place] [phone] Xr Imaging [facility] Referral ID Status Reason Start Date Expiration Date V isits Requested Visits Authorized [id number] Closed Auto-Generate d Referral 04/11/2024 05/11/2025 1 1 [facility] Summary Purpose Family History No Family History [...] FoundNo Family History Records Found Advance Directives Advance Directive Response Recorded Date/ Time Advance Directives No September 02, 2022 2:51pm Advance Directive Response Recorded Date/ Time Advance Directives No September 02, 2022 3:51pm Date Activated Date Inactivated Comments 03/20/2024 1:08 AM 03/23/2024 9:45 PM Question Answer Comments Full Code Order Discussed With: Patient Date Activated Date Inactivated Comments 03/20/2024 1:08 AM 03/23/2024 9:45 PM Question Answer Comments Full Code Order Discussed With: Patient Advance Directive Response Recorded Date/ Time Advance Directives No June 13, 2024 9:05am Latest Code Status on File Code Status [...] lower extremity Procedures EMG Daniel Childress MD [address] [place] [address] [address] [place] [phone] Referral ID Status Reason Start Date Expiration Date V isits Requested Visits Authorized [id number] Pending Review 10/04/2023 10/03/2024 1 1 Specialty Diagnoses / Procedures Referred By Contac t Referred To Contact Rehabilitation Diagnoses Status post lumbar laminectomy Daniel Childress MD [address] [place] [address] # [address] [place] [phone] [facility] [address] [facility] [address] [place] [address] Referral ID Status Reason Start Date Expiration Date Visits Requested Visits Authorized [id number] Authorized Specialty Services Required 10/04/2023 10/03/2024 1 1 Specialty Diagnoses / Procedures Referred By Contac t Referred To Contact Radiology Diagnoses Back pain, unspecified back location, unspecified back pain laterality, unspecified chronicity Procedures XRAY HEAD/SPINE IMAGE IMPORT(DELFINA) DOWNLOAD POWERSHARE IMAGES TO Duc Paredes MD [address] [place] [address] [facility] [address] [place], [place] [phone] Referral ID Status Reason Start Date Expiration Date Visits Re quested Visits Authorized [id number] Closed 05/17/2024 05/17/2025 1 1 Specialty Diagnoses / Procedures Referred By Contac t Referred To Contact [facility] Diagnoses Other osteoporosis with current pathological fracture, initial encounter Status post lumbar spine surgery for decompression of spinal cord Lumbar radiculopathy Back pain of thoracolumbar region Procedures CONSULT TO PHYSICAL THERAPY PHYSICAL THERAPY EVALUATION HIGH COMPLEX 45 MINS Kian Mcdermott, CULINARY ARTS INSTRUCTOR.LIVESTOCK CARETAKER [address] Mail Code [address] [place] [address] [facility] [place] [place] [address] Referral ID Status Reason Start Date Expiration Date Visits Requested Visits Authorized [id number] Pending Review Auto-Generat ed Referral 04/17/2024 04/17/2025 1 1 Specialty Diagnoses / Procedures Referred By Jhonathanac t Referred To Contact MR IMAGING Diagnoses Other fracture of unspecified thoracic vertebra, initial encounter for closed fracture (HCC) Procedures MRI THORACIC SPINE WO IVCON MRI SPINAL CANAL THORACIC W/O CONTRAST Alison Robbins MD [address] [facility] [address] Mr Imaging [place] [address] Referral ID Status Reason Start Date Expiration Date Visits Requested Visits Authorized [id number] New Request Auto-Generat ed Referral 04/11/2024 05/11/2025 1 1 Specialty Diagnoses / Procedures Referred By Jhonathanac t Referred To Contact MR IMAGING Diagnoses Compression fracture of C7 vertebra, sequela Procedures MRI CERVICAL SPINE WO IVCON MRI SPINAL CANAL CERVICAL W/O CONTRAST Alison Robbins MD [address] [place] [phone] [facility] [place] [address] Referral ID Status Reason Start Date Expiration Date Visits Requested Visits Authorized [id number] New Request Auto-Generat ed Referral 04/11/2024 05/11/2025 1 1 Specialty Diagnoses / Procedures Referred By Contac t Referred To Contact XR IMAGING Diagnoses Compression fracture of body of thoracic vertebra (HCC) Procedures DXA-AXIAL SKELETON Alison Briceno MD [address] [facility] [address] Xr Imaging [facility]95 Referral ID Status Reason Start Date Expiration Date Visits Requested Visits Authorized [id number] New Request Auto-Generat ed Referral 04/11/2024 05/11/2025 1 1 Specialty Diagnoses / Procedures Referred By Contac t Referred To Contact Diagnoses Other osteoporosis with current pathological fracture, initial encounter Procedures CONSULT TO ENDO METABOLIC BONE OFFICE/OUTPATIENT NEW HIGH MDM 60 MINUTES Kian Mcdermott APRN.LIVESTOCK CARETAKER [address] Mail Code [address] [place] [phone] Referral ID Status Reason Start Date Expiration Date Visits Requested Visits Authorized [id number] Authorized PCP Requested Referral 03/26/2024 03/26/2025 1 1 Specialty Diagnoses / Procedures Referred By Contac t Referred To Contact Diagnoses Other osteoporosis with current pathological fracture, initial encounter Procedures CONSULT TO ENDO METABOLIC BONE OFFICE/OUTPATIENT NEW HIGH MDM 60 MINUTES Violeta Black MD [address] [place] [address] Referral ID Status Reason Start Date Expiration Date Visits Requested Visits Authorized [id number] Authorized PCP Requested Referral 03/26/2024 03/26/2025 1 1 Additional Source Comments (unrecognized sect [...] section and content) DATE CREATED AUTHOR 02/01/2018 [facility] DATE CREATED AUTHOR AUTHOR'S ORGANIZ ATION 08/24/2021 [facility] DATE CREATED AUTHOR AUTHOR'S ORGANIZ ATION 09/28/2023 [facility] DATE CREATED AUTHOR AUTHOR'S ORGANIZ ATION 10/11/2023 [facility] DATE CREATED AUTHOR AUTHOR'S ORGANIZ ATION 04/12/2024 [facility] DATE CREATED AUTHOR AUTHOR'S ORGANIZ ATION 04/21/2024 [facility] DATE CREATED AUTHOR AUTHOR'S ORGANIZ ATION 05/06/2024 [facility] DATE CREATED AUTHOR AUTHOR'S ORGANIZ ATION 05/18/2024 [facility] DATE CREATED AUTHOR AUTHOR'S ORGANIZ ATION 05/23/2024 [facility] DATE CREATED AUTHOR AUTHOR'S ORGANIZ ATION 05/23/2024 [facility] DATE CREATED AUTHOR AUTHOR'S ORGANIZ ATION 10/02/2024 [facility] DATE CREATED AUTHOR AUTHOR'S ORGANIZ ATION 10/04/2024 [facility] DATE CREATED AUTHOR AUTHOR'S ORGANIZ ATION 10/28/2024 [facility] DATE CREATED AUTHOR AUTHOR'S ORGANIZ ATION 10/29/2024 [facility] Care Teams (unrecognized sec tion and content) Team Status: Inactive Member Role Status Dates Carole Jensen MD Attending Provider Active Nakia Simeon MD Primary Care Provider Active Team Status: Active Member Role Status Dates Nakia Simeon MD Primary Care Provider Active Team Status: Inactive Member Role Status Dates Nakia Simeon MD Primary Care Provider Active Melissa Galan APRN [facility] Attending Provider Active Collet Gluer Relationship Specialty Start Date End Date Hany Olivares MD [address] [place] [address] PCP - General Family Medicine 02/07/24 Collet Gluer Relationship Specialty Start Date End Date Hany Olivares MD [address] [place] [address] PCP - General Family Medicine 02/07/24 Collet Gluer Relationship Specialty Start Date End Date Hany Olivares MD [address] [place] [address] PCP - General Family Medicine 02/07/24 Team Status: Inactive Member Role Status Dates Nakia Simeon MD Primary Care Provider Active Start: March 16, 2024 End: March 16, 2024 Melissa Galan APRN [facility]- Attending Provider Active Start: March 16, 2024 End: March 16, 2024 Collet Gluer Relationship Specialty Start Date End Date Hany Olivares MD [address] [place] [address] PCP - General Family Medicine 02/07/24 Collet Gluer Relationship Specialty Start Date End Date Hany Olivares MD [address] [place] [address] PCP - General Family Medicine 02/07/24 Collet Gluer Relationship Specialty Start Date End Date Hany Olivares MD [address] [place] [address] PCP - General Family Medicine 02/07/24 Collet Gluer Relationship Specialty Start Date End Date Hany Olivares MD [address] [place] [address] PCP - General Family Medicine 02/07/24 Collet Gluer Relationship Specialty Start Date End Date Hany Olivares MD [address] [place] [address] PCP - General Family Medicine 02/07/24 Collet Gluer Relationship Specialty Start Date End Date Hany Olivares MD [address] [place] [address] PCP - General Family Medicine 02/07/24 Collet Gluer Relationship Specialty Start Date End Date Hany Olivares MD [address] [place] [address] PCP - General Family Medicine 02/07/24 Collet Gluer Relationship Specialty Start Date End Date Hany Olivares MD [address] [place] [address] PCP - General Family Medicine 02/07/24 Collet Gluer Relationship Specialty Start Date End Date Hany Olivares MD [address] [place] [address] PCP - General Family Medicine 02/07/24 Collet Gluer Relationship Specialty Start Date End Date Hany Olivares MD [address] [place] [address] PCP - General Family Medicine 02/07/24 Collet Gluer Relationship Specialty Start Date End Date Hany Olivares MD [address] [place] [address] PCP - General Family Medicine 02/07/24 Collet Gluer Relationship Specialty Start Date End Date Hany Olivares MD [address] [place] [address] PCP - General Family Medicine 02/07/24 Team Status: Active Member Role Status Dates Devi Munoz DO Primary Care Provider Active Team Status: Inactive Member Role Status Dates Naila Ruiz MD Attending Provider Acti ve Start: May 15, 2024 End: May 15, 2024 Devi Munoz DO Primary Care Provider Active Start: May 15, 2024 End: May 15, 2024 Collet Gluer Relationship Specialty Start Date End Date Hany Olivares MD [address] [place] [address] PCP - General Family Medicine 02/07/24 Team Status: Inactive Member Role Status Dates Devi Munoz DO Primary Care Provider Active Start: June 11, 2024 End: June 11, 2024 Randy Denton MD Attending Provider Active Sta rt: June 11, 2024 End: June 11, 2024 Consuelo Madera , [employer]BI[employer] HOME [employer] UTILITY WORKER-C Referring Provider Active Start: June 11, 2024 End: June 11, 2024 Collet Gluer Relationship Specialty Start Date End Date Hany Olivares MD [facility] [place] [address] PCP - General Family Medicine 02/07/24 Team [...] July 03, 2024 End: July 03, 2024 Collet Gluer Relationship Specialty Start Date End Date Nakia Simeon MD [address] [place] [address] PCP - General Family Medicine 01/26/23 Collet Gluer Relationship Specialty Start Date End Date Nakia Simeon MD [address] [place] [address] PCP - General Family Medicine 01/26/23 Collet Gluer Relationship Specialty Start Date End Date Hany Olivares MD [address] [place] [address] PCP - General Family Medicine 02/07/24 Collet Gluer Relationship Specialty Start Date End Date Devi Munoz DO [address] [place] [address] PCP - General Family Medicine 07/25/23 Collet Gluer Relationship Specialty Start Date End Date Devi Munoz DO [address] [place] [address] PCP - General Family Medicine 07/25/23 Collet Gluer Relationship Specialty Start Date End Date Hany Olivares MD [address] [place] [address] PCP - General Family Medicine 02/07/24 Collet Gluer Relationship Specialty Start Date End Date Hany Olivares MD [address] [place] [address] PCP - General Family Medicine 02/07/24 Collet Gluer Relationship Specialty Start Date End Date Hany Olivares MD [address] [place] [address] PCP - General Family Medicine 02/07/24 Collet Gluer Relationship Specialty Start Date End Date Hany Olivares MD [address] [place] [address] PCP - General Family Medicine 02/07/24 Goals (unrecognized section and content) Goals may be documented in a n alternate sectionNo InformationGoals may be documented in an alternate sectionNo InformationGoals may be documented in an alternate section [...] this section No data available for this sectionNot on filedocumented as of this encounterNot on filedocumented as of this encounter No data available for this section REASON FOR VISIT (unrecogniz ed section and content) Reason Comments New Patient Reason Comments Patient [...] MR NEURO IMAGE IMPORT(DELFINA) Duc Holcomb MD [address] [place] [address] [facility] [address] [place] [address] Referral ID Status Reason Start Date Expiration Date Visits Re quested Visits Authorized [id number] Closed 05/17/2024 05/17/2025 1 1 Reason Comments Follow Up Reason Comments Follow Up Patient here for a 1 month follow-up, post-blood work. Reason Comments Pre-injection instructions Reason Comments Follow-up P/o lumbar lami Reason Comments Follow-up EPReview MRI Resul ts Reason Comments Anesthesia Consult Source Comments (unrecognize d section and content) In the event this informatio n is protected by the Federal Confidentiality of Alcohol and Drug Abuse Patient Records regulations: The Federal rules restrict any use of the information to criminally investigate or prosecute any alcohol or drug abuse patient.[facility] Center[facility] the event this information is protected by the Federal Confidentiality of Alcohol and Drug Abuse Patient Records regulations: The Federal rules restrict any use of the information to criminally investigate or prosecute any alcohol or drug abuse patient.[facility] CenterIn the event this information is protected by the Federal Confidentiality of Alcohol and Drug Abuse Patient Records regulations: The Federal rules restrict any use of the information to criminally investigate or prosecute any alcohol or drug abuse patient.[facility] CenterIn the event this information is protected by the Federal Confidentiality of Alcohol and Drug Abuse Patient Records regulations: The Federal rules restrict any use of the information to criminally investigate or prosecute any alcohol or drug abuse patient.[facility] CenterIn the event this information is protected by the Federal Confidentiality of Alcohol and Drug Abuse Patient Records regulations: The Federal rules restrict any use of the information to criminally investigate or prosecute any alcohol or drug abuse patient.[facility] CenterIn the event this information is protected by the Federal Confidentiality of Alcohol and Drug Abuse Patient Records regulations: The Federal rules restrict any use of the information to criminally investigate or prosecute any alcohol or drug abuse patient.[facility] CenterIn the event this information is protected by the Federal Confidentiality of Alcohol and Drug Abuse Patient Records regulations: The Federal rules restrict any use of the information to criminally investigate or prosecute any alcohol or drug abuse patient.[facility] CenterIn the event this information is protected by the Federal Confidentiality of Alcohol and Drug Abuse Patient Records regulations: The Federal rules restrict any use of the information to criminally investigate or prosecute any alcohol or drug abuse patient.[facility] CenterIn the event this information is protected by the Federal Confidentiality of Alcohol and Drug Abuse Patient Records regulations: The Federal rules restrict any use of the information to criminally investigate or prosecute any alcohol or drug abuse patient.[facility] CenterIn the event this information is protected by the Federal Confidentiality of Alcohol and Drug Abuse Patient Records regulations: The Federal rules restrict any use of the information to criminally investigate or prosecute any alcohol or drug abuse patient.[facility] CenterIn the event this information is protected by the Federal Confidentiality of Alcohol and Drug Abuse Patient Records regulations: The Federal rules restrict any use of the information to criminally investigate or prosecute any alcohol or drug abuse patient.[facility] CenterIn the event this information is protected by the Federal Confidentiality of Alcohol and Drug Abuse Patient Records regulations: The Federal rules restrict any use of the information to criminally investigate or prosecute any alcohol or drug abuse patient.[facility] CenterIn the event this information is protected by the Federal Confidentiality of Alcohol and Drug Abuse Patient Records regulations: The Federal rules restrict any use of the information to criminally investigate or prosecute any alcohol or drug abuse patient.[facility] CenterIn the event this information is protected by the Federal Confidentiality of Alcohol and Drug Abuse Patient Records regulations: The Federal rules restrict any use of the information to criminally investigate or prosecute any alcohol or drug abuse patient.[facility] CenterIn the event this information is protected by the Federal Confidentiality of Alcohol and Drug Abuse Patient Records regulations: The Federal rules restrict any use of the information to criminally investigate or prosecute any alcohol or drug abuse patient.[facility] CenterIn the event this information is protected by the Federal Confidentiality of Alcohol and Drug Abuse Patient Records regulations: The Federal rules restrict any use of the information to criminally investigate or prosecute any alcohol or drug abuse patient.[facility] CenterIn the event this information is protected by the Federal Confidentiality of Alcohol and Drug Abuse Patient Records regulations: The Federal rules restrict any use of the information to criminally investigate or prosecute any alcohol or drug abuse patient.[facility] CenterIn the event this information is protected by the Federal Confidentiality of Alcohol and Drug Abuse Patient Records regulations: The Federal rules restrict any use of the information to criminally investigate or prosecute any alcohol or drug abuse patient.[facility] CenterIn the event this information is protected by the Federal Confidentiality of Alcohol and Drug Abuse Patient Records regulations: The Federal rules restrict any use of the information to criminally investigate or prosecute any alcohol or drug abuse patient.[facility] CenterIn the event this information is protected by the Federal Confidentiality of Alcohol and Drug Abuse Patient Records regulations: The Federal rules restrict any use of the information to criminally investigate or prosecute any alcohol or drug abuse patient.[facility] CenterIn the event this information is protected by the Federal Confidentiality of Alcohol and Drug Abuse Patient Records regulations: The Federal rules restrict any use of the information to criminally investigate or prosecute any alcohol or drug abuse patient.[facility] CenterIn the event this information is protected by the Federal Confidentiality of Alcohol and Drug Abuse Patient Records regulations: The Federal rules restrict any use of the information to criminally investigate or prosecute any alcohol or drug abuse patient.[facility] CenterIn the event this information is protected by the Federal Confidentiality of Alcohol and Drug Abuse Patient Records regulations: The Federal rules restrict any use of the information to criminally investigate or prosecute any alcohol or drug abuse patient.[facility] CenterIn the event this information is protected by the Federal Confidentiality of Alcohol and Drug Abuse Patient Records regulations: The Federal rules restrict any use of the information to criminally investigate or prosecute any alcohol or drug abuse patient.[facility] CenterIn the event this information is protected by the Federal Confidentiality of Alcohol and Drug Abuse Patient Records regulations: The Federal rules restrict any use of the information to criminally investigate or prosecute any alcohol or drug abuse patient.[facility] CenterIn the event this information is protected by the Federal Confidentiality of Alcohol and Drug Abuse Patient Records regulations: The Federal rules restrict any use of the information to criminally investigate or prosecute any alcohol or drug abuse patient.[facility] CenterIn the event this information is protected by the Federal Confidentiality of Alcohol and Drug Abuse Patient Records regulations: The Federal rules restrict any use of the information to criminally investigate or prosecute any alcohol or drug abuse patient.[facility] CenterIn the event this information is protected by the Federal Confidentiality of Alcohol and Drug Abuse Patient Records regulations: The Federal rules restrict any use of the information to criminally investigate or prosecute any alcohol or drug abuse patient.[facility] CenterIn the event this information is protected by the Federal Confidentiality of Alcohol and Drug Abuse Patient Records regulations: The Federal rules restrict any use of the information to criminally investigate or prosecute any alcohol or drug abuse patient.[facility] CenterIn the event this information is protected by the Federal Confidentiality of Alcohol and Drug Abuse Patient Records regulations: The Federal rules restrict any use of the information to criminally investigate or prosecute any alcohol or drug abuse patient.[facility] CenterIn the event this information is protected by the Federal Confidentiality of Alcohol and Drug Abuse Patient Records regulations: The Federal rules restrict any use of the information to criminally investigate or prosecute any alcohol or drug abuse patient.[facility] CenterIn the event this information is protected by the Federal Confidentiality of Alcohol and Drug Abuse Patient Records regulations: The Federal rules restrict any use of the information to criminally investigate or prosecute any alcohol or drug abuse patient.[facility] CenterIn the event this information is protected by the Federal Confidentiality of Alcohol and Drug Abuse Patient Records regulations: The Federal rules restrict any use of the information to criminally investigate or prosecute any alcohol or drug abuse patient.[facility] CenterIn the event this information is protected by the Federal Confidentiality of Alcohol and Drug Abuse Patient Records regulations: The Federal rules restrict any use of the information to criminally investigate or prosecute any alcohol or drug abuse patient.[facility] FOR RECORDS PERTAINING TO PATIENTS [...] BE BASED ON THE PRIMARY CLINICAL RECORDS. [facility] [employer] [facility]. provides no warranty or guarantee of the accuracy or completeness of information in this document.
[2024-10-31 06:30] VITALS: BP 130/72; PULSE 78; TEMP 36.6; O2SAT 98; BMI 24.3
[2024-10-31] MEDS: 0.9 % SODIUM CHLORIDE 500 ML 50 ML IV (07:10)
[2024-10-31 08:02] VITALS: BP 96/61; PULSE 77; O2SAT 96
[2024-10-31 08:17] VITALS: PULSE 711
== END 2024-10-31 08:40 | disposition home or self-care (01) ==
PROVIDERS: PCP Family Medicine; Visit Provider Surgery
PROC: (CPT 813; principal; 2024-10-31 07:30)
DX: K21.9 Gastro-esophageal reflux disease without esophagitis (principal); Z12.11 Encounter for screening for malignant neoplasm of colon; K29.50 Unspecified chronic gastritis without bleeding; I10 Essential (primary) hypertension; Z79.899 Other long term (current) drug therapy; M54.16 Radiculopathy, lumbar region; Z87.891 Personal history of nicotine dependence; N40.0 Benign prostatic hyperplasia without lower urinary tract symptoms
CPT/HCPCS: 43239; 45378; J2704; J3010